=== PATIENT | female | born 1960 | race Caucasian/White ===

== ENCOUNTER 2016-07-21 08:00 | Outpatient (CLI) | payer MEDICARE, MEDICAID | END 2016-07-21 23:59 | DX: L89.509 Pressure ulcer of unspecified ankle, unspecified stage (principal) ==

== ENCOUNTER 2016-08-26 14:58 | Outpatient (CLI) | payer MEDICARE, MEDICAID | END 2016-08-26 14:59 | disposition home or self-care (01) | DX: E11.9 Type 2 diabetes mellitus without complications (principal); E03.9 Hypothyroidism, unspecified ==

== ENCOUNTER 2017-01-03 17:55 | Emergency (ER) | payer MEDICARE, MEDICAID ==
[2017-01-03] MEDS ORDERED: CLINDAMYCIN 900 MG/50 ML 50 ML IV ONE ×2 (18:07→18:23)
--- NOTE | 2017-01-03 18:09 | ED Physician Documentation ---
PD HPI LOWER EXT INJURY - Stated complaint Stated Complaint: L LEG WOUND - Chief complaint Chief Complaint: Ext Problem - History obtained from History obtained from: Patient - History of Present Illness PD HPI LOW EXT INJURY LOCATION: Other (56-year-old woman with orally controlled diabetes and history of recurrent leg infections with history of MRSA had a small blister on the anterior part of her left coates about a week ago, she put a Band-Aid on but it continued to get worse now she is spreading redness over the area. No measured fevers but she has had some chills.) Review of Systems Ten Systems: 10 systems reviewed and negative Constitutional: reports: Chills. denies: Fever Nose: denies: Rhinorrhea / runny nose, Congestion Cardiac: denies: Chest pain / pressure, Palpitations Respiratory: denies: Dyspnea, Cough PD PAST MEDICAL HISTORY - Past Medical History Cardiovascular: Hypertension Respiratory: Asthma Neuro: Peripheral neuropathy Endocrine/Autoimmune: Type 2 diabetes, HyPOthyroidism GI: None : Incontinence, Nocturia, Frequency HEENT: None Psych: Anxiety, Post traumatic stress disorder Musculoskeletal: Osteoarthritis, Fibromyalgia, Chronic back pain Derm: Other drug resistant infections, Herpes zoster - Past Surgical History Past Surgical History: Yes - Present Medications Home Medications: Ambulatory Orders Medication Instructions Recorded Confirmed Carisoprodol 350 mg PO QPM 10/07/13 08/04/16 Cholecalciferol (Vitamin D3) 5,000 units PO DAILY 10/07/13 08/04/16 [Vitamin D] Levothyroxine [Synthroid] 125 mcg PO DAILY 10/07/13 08/04/16 Liothyronine Sodium [Cytomel] 25 mcg PO DAILY 10/07/13 08/04/16 Metformin HCl 500 mg PO BID 10/07/13 08/04/16 Lisinopril 20 mg PO DAILY 02/12/15 08/04/16 Methadone HCl 10 mg PO TID 02/12/15 08/04/16 Sertraline HCl [Zoloft] 100 mg PO DAILY 02/12/15 08/04/16 Carisoprodol 350 mg PO DAILY 03/30/15 08/04/16 Meloxicam 15 mg PO DAILY 08/04/16 08/04/16 Tetracycline HCl 500 mg PO BID 08/04/16 08/04/16 Clindamycin HCl 300 mg PO TID 08/18/16 08/18/16 Sulfamethox/Trimeth 800/160 1 tab PO BID 08/18/16 08/18/16 [Bactrim Ds] Clindamycin [Cleocin] 300 mg PO Q6H 10 Days 01/03/17 - Allergies Allergies/Adverse Reactions: Allergies Allergy/AdvReac Type Severity Reaction Status Date / Time Penicillins Allergy Rash Verified 03/30/15 19:55 Sulfa (Sulfonamide Allergy Rash Verified 03/30/15 19:55 Antibiotics) - Social History Does the pt smoke?: Yes Smoking Status: Current every day smoker Does the pt drink ETOH?: No Does the pt have substance abuse?: No - Family History Family history: reports: Non contributory - Immunizations Immunizations are current?: Yes PD ED PE NORMAL - Vitals Vital signs reviewed: Yes - General General: Alert and oriented X 3, No acute distress - HEENT HEENT: PERRL, EOMI - Neck Neck: Supple, no meningeal sign, No bony TTP - Cardiac Cardiac: RRR, No murmur - Respiratory Respiratory: No respiratory distress, Clear bilaterally - Abdomen Abdomen: Soft, Non tender - Back Back: No CVA TTP, No spinal TTP - Extremities Extremities: Other (She has cellulitis of the left leg from about 8 cm below the knee down to the ankle with some denuded areas with serous drainage on the anterior right coates but no purulent drainage or obvious abscess.) - Neuro Neuro: Alert and oriented X 3, Normal speech - Psych Psych: Normal mood, Normal affect Results - Vitals Vitals: Vital Signs - 24 hr 01/03/17 17:59 Temperature 37 C Heart Rate 88 Respiratory 20 Rate Blood Pressure 182/79 H O2 Saturation 97 Oxygen O2 Source Room air - Labs Labs: Laboratory Tests 01/03/17 01/03/17 18:36 18:36 WBC 9.7 RBC 4.17 L Hgb 11.7 L Hct 35.8 L MCV 86.0 MCH 28.1 MCHC 32.7 RDW 14.7 Plt Count 262 MPV 7.6 L Neut # 6.5 Lymph # 2.3 [place] # 0.7 Eos # 0.3 Baso # 0.0 Absolute Nucleated RBC 0.00 Nucleated RBCs 0.0 Sodium 141 Potassium 4.1 Chloride 104 Carbon Dioxide 30 Anion Gap 7.0 BUN 22 H Creatinine 0.6 Estimated GFR (MDRD) 103 Glucose 135 H Calcium 8.7 PD MEDICAL DECISION MAKING - ED course ED course: 56-year-old woman with recurrent cellulitis, history of MRSA. She has an area of cellulitis with some systemic symptoms but her blood work is reassuring. She was administered IV clindamycin here and a prescription for same. She feels comfortable with discharge which seems reasonable given lack of fever or white count here. Departure - Departure Disposition: 01 Home, Self Care Clinical Impression: Cellulitis Condition: Good Record reviewed to determine appropriate education?: Yes Instructions: ED Infec Skin Cellulitis Prescriptions: Clindamycin [Cleocin] 300 mg PO Q6H 10 Days Comments: Return if redness spreads if you develop fever, or if you are not better in a few days. Follow-up with your doctor as soon as possible, discuss referral to wound clinic. We are performing a wound culture, the results should be done in 48-72 hours. If antibiotic change is necessary we will call you. Return if worse in the meantime, especially if he develop increased pain, fevers, cannot keep down the medication. Otherwise follow-up with your physician in approximately 2-3 days. Your blood pressure was elevated today on check into the emergency department. This does not mean that you have hypertension, it is a common phenomenon to come to the emergency department and have elevated blood pressure. I recommend that she see her primary care physician within the week to have it rechecked when you are feeling better.
[2017-01-03] MEDS ORDERED: SODIUM CHLORIDE FLUSH 0.9% 10 ML SYRINGE IVP ONE (18:23)
[2017-01-03 18:42] LABS: BASOPHILS % (AUTO) 0.3 %; EOSINOPHILS # (AUTO) 0.3 10^3/uL (0.0-0.7); EOSINOPHILS % (AUTO) 2.6 %; HCT - HEMATOCRIT 35.8 % (37.0-47.0); HGB - HEMOGLOBIN 11.7 g/dL (12.0-16.0); LYMPHOCYTES # (AUTO) 2.3 10^3/uL (1.5-3.5); LYMPHOCYTES % (AUTO) 23.9 %; MEAN CORPUSCULAR HEMOGLOBIN 28.1 pg (27.0-31.0); MEAN CORPUSCULAR HGB CONC 32.7 g/dL (32.0-36.0); MEAN PLATELET VOLUME 7.6 fL (7.9-10.8); MONOCYTES # (AUTO) 0.7 10^3/uL (0.0-1.0); MONOCYTES % (AUTO) 6.7 %; NEUTROPHILS # (AUTO) 6.5 10^3/uL (1.5-6.6); NEUTROPHILS % (AUTO) 66.5 %; RED BLOOD COUNT 4.17 10^6/uL (4.20-5.40); RED CELL DISTRIBUTION WIDTH 14.7 % (12.0-15.0); UNCORRECTED WHITE BLOOD COUNT 9.7 x10^3/uL; WHITE BLOOD COUNT 9.7 x10^3/uL (4.8-10.8)
[2017-01-03 18:50] LABS: CALCIUM 8.7 mg/dL (8.5-10.3); CREATININE 0.6 mg/dL (0.4-1.0); POTASSIUM 4.1 mmol/L (3.5-5.0)
[2017-01-03 19:38] VITALS: BP 158/76
== END 2017-01-03 20:03 | disposition home or self-care (01) ==
LOC: ED 17:55
DX: L03.116 Cellulitis of left lower limb (principal); E11.42 Type 2 diabetes mellitus with diabetic polyneuropathy; Z79.84 Long term (current) use of oral hypoglycemic drugs; I10 Essential (primary) hypertension; J45.909 Unspecified asthma, uncomplicated; E03.9 Hypothyroidism, unspecified; M79.7 Fibromyalgia; M19.90 Unspecified osteoarthritis, unspecified site; Z86.14 Personal history of Methicillin resistant Staphylococcus aureus infection; F17.200 Nicotine dependence, unspecified, uncomplicated
CPT/HCPCS: 36415; 80048; 85025; 87070; 87077; 87205; 96374; 99283; 99284

== ENCOUNTER 2017-01-06 12:13 | Outpatient (CLI) | payer MEDICARE, MEDICAID ==
--- NOTE | 2017-01-06 15:55 | XRAY Report ---
TWO VIEW CHEST: 01/06/2017 CLINICAL INDICATION: Edema. FINDINGS: Frontal and lateral views of the chest demonstrate a normal cardiac silhouette. There is p ulmonary vascular congestion present, compatible with mild congestive failure. No effusion or pneumot horax is present. IMPRESSION: PULMONARY VASCULAR CONGESTION, COMPATIBLE WITH MILD CONGESTIVE FAILURE. JOB #: [id number] EXT JOB #:[id number]
== END 2017-01-06 12:14 | disposition home or self-care (01) ==
LOC: DI.S 12:13
PROVIDERS: ATTEND Nurse Practitioner Family
DX: I50.9 Heart failure, unspecified (principal)
CPT/HCPCS: 71020

== ENCOUNTER 2017-01-15 16:59 | Outpatient (CLI) | payer MEDICARE, MEDICAID | END 2017-01-15 17:00 | disposition home or self-care (01) | LOC: LAB 16:59 | PROVIDERS: ATTEND Nurse Practitioner Family | DX: I10 Essential (primary) hypertension (principal); R60.9 Edema, unspecified; Z78.9 Other specified health status ==

== ENCOUNTER 2017-01-16 13:32 | Outpatient (CLI) | payer MEDICARE, MEDICAID | END 2017-01-16 13:33 | disposition home or self-care (01) | LOC: DI 13:32 | PROVIDERS: ATTEND Nurse Practitioner Family | DX: R60.9 Edema, unspecified (principal); I51.7 Cardiomegaly | CPT/HCPCS: 93306 ==

== ENCOUNTER 2017-01-28 14:52 | Outpatient (CLI) | payer MEDICARE, MEDICAID ==
[2017-01-28 15:48] LABS: BASOPHILS % (AUTO) 0.4 %; EOSINOPHILS # (AUTO) 0.2 10^3/uL (0.0-0.7); EOSINOPHILS % (AUTO) 2.1 %; HGB - HEMOGLOBIN 12.7 g/dL (12.0-16.0); LYMPHOCYTES # (AUTO) 2.4 10^3/uL (1.5-3.5); LYMPHOCYTES % (AUTO) 23.3 %; MEAN CORPUSCULAR HEMOGLOBIN 27.8 pg (27.0-31.0); MEAN CORPUSCULAR HGB CONC 32.6 g/dL (32.0-36.0); MEAN CORPUSCULAR VOLUME 85.3 fL (81.0-99.0); MONOCYTES # (AUTO) 0.7 10^3/uL (0.0-1.0); MONOCYTES % (AUTO) 6.6 %; NEUTROPHILS % (AUTO) 67.6 %; NUCLEATED RED BLOOD CELLS AUTO 0.1 /100WBC; RED BLOOD COUNT 4.57 10^6/uL (4.20-5.40); RED CELL DISTRIBUTION WIDTH 14.5 % (12.0-15.0); UNCORRECTED WHITE BLOOD COUNT 10.4 x10^3/uL; WHITE BLOOD COUNT 10.4 x10^3/uL (4.8-10.8)
[2017-01-28 16:04] LABS: ALBUMIN/GLOBULIN RATIO 1.3 (1.0-2.2); BILIRUBIN,TOTAL 0.4 mg/dL (0.2-1.0); CALCIUM 9.4 mg/dL (8.5-10.3); CREATININE 0.6 mg/dL (0.4-1.0); POTASSIUM 4.1 mmol/L (3.5-5.0); TOTAL PROTEIN 7.8 g/dL (6.7-8.2)
== END 2017-01-28 14:53 | disposition home or self-care (01) ==
LOC: LAB 14:52
PROVIDERS: ATTEND Nurse Practitioner Family
DX: I50.9 Heart failure, unspecified (principal); I10 Essential (primary) hypertension; R60.9 Edema, unspecified; Z78.9 Other specified health status
CPT/HCPCS: 36415; 80053; 83880; 85025; 86803

== ENCOUNTER 2017-02-04 15:06 | Outpatient (CLI) | payer MEDICARE, MEDICAID ==
[2017-02-07 00:02] LABS: HEPATITIS C VIRAL RNA GENOTYPE NOT DETECTED
== END 2017-02-04 15:07 | disposition home or self-care (01) ==
LOC: LAB 15:06
PROVIDERS: ATTEND Nurse Practitioner Family
DX: B19.20 Unspecified viral hepatitis C without hepatic coma (principal)
CPT/HCPCS: 36415; 82105; 87522; 87902

== ENCOUNTER 2017-02-11 12:46 | Outpatient (CLI) | payer MEDICARE, MEDICAID ==
--- NOTE | 2017-02-11 14:19 | Ultrasound Report ---
LIVER ULTRASOUND: 02/11/2017 CLINICAL INDICATION: Hepatitis C. TECHNIQUE: Real-time scanning was performed with high school admissions representative static images obtained. FINDINGS: The liver is markedly enlarged, measuring 25.8 cm. Hepatic echogenicity is diffusely incr eased. No intrahepatic biliary dilatation or focal mass is seen. The common bile duct measures 5 mm . The gallbladder demonstrates cholelithiasis. No wall thickening or pericholecystic fluid is prese nt. The right kidney measures 12.1 cm, and demonstrates no hydronephrosis. No free fluid is present . IMPRESSION: MARKEDLY ENLARGED, ECHOGENIC LIVER, WITHOUT EVIDENCE OF FOCAL MASS. JOB #: [id number] EXT JOB #:[id number]
== END 2017-02-11 12:47 | disposition home or self-care (01) ==
LOC: DI 12:46
PROVIDERS: ATTEND Nurse Practitioner Family
DX: B19.20 Unspecified viral hepatitis C without hepatic coma (principal); R16.0 Hepatomegaly, not elsewhere classified
CPT/HCPCS: 76705

== ENCOUNTER 2017-04-06 13:34 | Outpatient (CLI) | payer MEDICARE, MEDICAID | END 2017-04-06 13:35 | disposition home or self-care (01) | LOC: RT.S 13:34 | PROVIDERS: ATTEND Nurse Practitioner Family | DX: G89.29 Other chronic pain (principal) | CPT/HCPCS: 93005 ==

== ENCOUNTER 2017-05-28 16:37 | Outpatient (CLI) | payer MEDICARE, MEDICAID | END 2017-05-28 16:38 | disposition home or self-care (01) | LOC: LAB.R 16:37 | PROVIDERS: ATTEND Nurse Practitioner Family | DX: I87.2 Venous insufficiency (chronic) (peripheral) (principal) | CPT/HCPCS: 81599; 87070; 87077; 87184; 87186; 87205 ==

== ENCOUNTER → 2017-06-02 | Outpatient (CLI) | payer MEDICARE, MEDICAID | LOC: LAB.R 08:00 | PROVIDERS: ATTEND Nurse Practitioner Family | DX: L98.499 Non-pressure chronic ulcer of skin of other sites with unspecified severity (principal) | CPT/HCPCS: 81599 ==

== ENCOUNTER 2017-09-21 15:47 | Outpatient (CLI) | payer MEDICARE, MEDICAID ==
[2017-09-21 17:47] LABS: BASOPHILS % (AUTO) 0.3 %; EOSINOPHILS # (AUTO) 0.2 10^3/uL (0.0-0.7); EOSINOPHILS % (AUTO) 2.3 %; HGB - HEMOGLOBIN 12.1 g/dL (12.0-16.0); LYMPHOCYTES # (AUTO) 2.4 10^3/uL (1.5-3.5); LYMPHOCYTES % (AUTO) 23.3 %; MEAN CORPUSCULAR HEMOGLOBIN 26.4 pg (27.0-31.0); MEAN CORPUSCULAR VOLUME 82.4 fL (81.0-99.0); MEAN PLATELET VOLUME 8.5 fL (7.9-10.8); MONOCYTES # (AUTO) 0.6 10^3/uL (0.0-1.0); NEUTROPHILS % (AUTO) 68.1 %; PLT - PLATELET COUNT 336 10^3/uL (130-450); RED BLOOD COUNT 4.59 10^6/uL (4.20-5.40); RED CELL DISTRIBUTION WIDTH 15.5 % (12.0-15.0); WHITE BLOOD COUNT 10.3 x10^3/uL (4.8-10.8)
[2017-09-21 18:03] LABS: ALBUMIN 4.2 g/dL (3.2-5.5); ALBUMIN/GLOBULIN RATIO 1.2 (1.0-2.2); BILIRUBIN,TOTAL 0.6 mg/dL (0.2-1.0); CALCIUM 9.4 mg/dL (8.5-10.3); CREATININE 0.7 mg/dL (0.4-1.0); CRP - C-REACTIVE PROTEIN 1.1 mg/dL (0-1.0); TOTAL PROTEIN 7.6 g/dL (6.7-8.2)
[2017-09-21 19:45] LABS: HB2 TOTAL 13.4 g/dL; HEMOGLOBIN A1C 0.55 g/dL; HEMOGLOBIN A1C % 5.9 % (4.6-6.2)
== END 2017-09-21 15:48 | disposition home or self-care (01) ==
LOC: LAB.F 15:47
PROVIDERS: ATTEND Nurse Practitioner Family
DX: B19.20 Unspecified viral hepatitis C without hepatic coma (principal); E11.9 Type 2 diabetes mellitus without complications; E66.01 Morbid (severe) obesity due to excess calories; E03.9 Hypothyroidism, unspecified; L03.031 Cellulitis of right toe; L03.90 Cellulitis, unspecified
CPT/HCPCS: 36415; 80053; 82043; 83036; 84443; 85025; 85651; 86140

== ENCOUNTER 2018-06-25 02:11 | Outpatient (CLI) | payer MEDICARE, MEDICAID | END 2018-06-25 02:12 | disposition EMS.NT | LOC: EMS 02:11 | PROVIDERS: ATTEND Surgery | DX: R00.0 Tachycardia, unspecified (principal) ==

== ENCOUNTER 2018-09-20 08:00 | Outpatient (CLI) | payer MEDICAID, MEDICARE | END 2018-09-20 23:59 | disposition home or self-care (01) | LOC: LAB.R 08:00 | PROVIDERS: ATTEND Registered Nurse | DX: R06.2 Wheezing (principal) | CPT/HCPCS: 87070; 87205 ==

== ENCOUNTER 2019-07-12 12:46 | Outpatient (CLI) | payer MEDICARE, MEDICAID ==
[2019-07-12 17:41] LABS: ALBUMIN 4.1 g/dL (3.2-5.5); ALBUMIN/GLOBULIN RATIO 1.2 (1.0-2.2); ALKALINE PHOSPHATASE 78 IU/L (42-121); ALT ALANINE AMINOTRANSFERASE 23 IU/L (10-60); AST ASPARTATE AMINOTRANSFERASE 20 IU/L (10-42); BILIRUBIN,TOTAL < 0.2 mg/dL (0.2-1.0); BUN - BLOOD UREA NITROGEN 28 mg/dL (6-20); CALCIUM 9.1 mg/dL (8.5-10.3); CARBON DIOXIDE - CO2 28 mmol/L (21-32); CHLORIDE 101 mmol/L (101-111); CHOL/HDL RATIO 4.7 (<4.4); CHOLESTEROL 194 mg/dL; CREATININE 0.7 mg/dL (0.4-1.0); GFR - MDRD 85 (>89); GLUCOSE 117 mg/dL (70-100); HDL CHOLESTEROL 41 mg/dL; LDL CHOLESTEROL,CALCULATED 112 mg/dL; LDL/HDL RATIO 2.7 (<4.4); SODIUM 137 mmol/L (135-145); TOTAL PROTEIN 7.5 g/dL (6.7-8.2); VLDL CHOLESTEROL 41 mg/dL
== END 2019-07-12 12:47 | disposition home or self-care (01) ==
LOC: LAB.S 12:46
PROVIDERS: ATTEND Registered Nurse
DX: E03.9 Hypothyroidism, unspecified (principal); I10 Essential (primary) hypertension; E11.59 Type 2 diabetes mellitus with other circulatory complications
CPT/HCPCS: 36415; 80053; 80061; 83036; 83721; 84443; 85025

== ENCOUNTER 2020-03-30 11:49 | Outpatient (CLI) | payer MEDICARE, MEDICAID | END 2020-03-30 11:50 | disposition critical access hospital (66) | LOC: EMS 11:49 | PROVIDERS: ATTEND Surgery | DX: L08.89 Other specified local infections of the skin and subcutaneous tissue (principal) | CPT/HCPCS: A0425; A0429 ==

== ENCOUNTER 2020-03-30 12:24 | Emergency (ER) | payer MEDICARE, MEDICAID ==
--- NOTE | 2020-03-30 12:29 | ED Physician Documentation ---
PD HPI WOUND RECHECK - Stated complaint Stated Complaint: LEG SORES - Histroy obtained from History obtained from: Patient - Additional information Additional information: 59-year-old woman with diabetes on metformin, no insulin presents with 2 months worth of wound issues on the legs and sacrum, the worst being the left lower extremity. In the past she has had poorly healing wounds and has been in wound care, but it sounds like she has been doing okay for the last couple of years until 2 months ago and has the above-stated wounds. 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 PD PAST MEDICAL HISTORY - Past Medical History Cardiovascular: Hypertension, Peripheral Vascular Disease Respiratory: Asthma Neuro: Peripheral neuropathy Endocrine/Autoimmune: Type 2 diabetes, HyPOthyroidism GI: None : Incontinence, Nocturia, Frequency HEENT: None Psych: Anxiety, Post traumatic stress disorder Musculoskeletal: Osteoarthritis, Fibromyalgia, Chronic back pain Derm: Other drug resistant infections, Herpes zoster - Past Surgical History Past Surgical History: Yes - Present Medications Home Medications: Ambulatory Orders Medication Instructions Recorded Confirmed Cholecalciferol (Vitamin D3) 5,000 units PO DAILY 10/07/13 03/30/20 [Vitamin D] Levothyroxine [Synthroid] 125 mcg PO DAILY 10/07/13 03/30/20 Liothyronine Sodium [Cytomel] 25 mcg PO DAILY 10/07/13 03/30/20 Lisinopril 20 mg PO DAILY 02/12/15 03/30/20 Methadone HCl 20 mg PO DAILY 02/12/15 03/30/20 Meloxicam 15 mg PO DAILY 08/04/16 03/30/20 oxyCODONE [Roxicodone] 5 mg PO TID PRN 06/24/17 03/30/20 hydrOXYzine HCL [Hydroxyzine HCl] 1 tab PO DAILY PRN 04/05/18 03/30/20 tiZANidine [Zanaflex] 1 tab PO QPM PRN 04/05/18 03/30/20 Furosemide [Lasix] 40 mg PO DAILY 09/09/18 03/30/20 Potassium Chloride [Klor-Con 10] 10 meq PO DAILY 09/09/18 03/30/20 Sertraline HCl 50 mg PO DAILY 09/09/18 03/30/20 Albuterol Sulfate [Proair Hfa 1 - 2 puffs PO Q6H PRN 03/06/19 03/30/20 Inhaler] Triamcinolone 0.1% Cream [Kenalog 1 applic TD BID PRN 03/06/19 03/30/20 0.1% Cream] Amox/Clav 875/125 [Augmentin] 1 each PO Q12H #20 tablet 03/30/20 Metformin HCl [Metformin ER 500 mg PO BID 03/30/20 03/30/20 Gastric] Nystatin [Nystop] 1 applic TOP BID #3 bottle 03/30/20 - Allergies Allergies/Adverse Reactions: Allergies Allergy/AdvReac Type Severity Reaction Status Date / Time Penicillins Allergy Rash Verified 03/30/20 12:28 Sulfa (Sulfonamide Allergy Rash Verified 03/30/20 12:28 Antibiotics) - Social History Does the pt smoke?: Yes Smoking Status: Current every day smoker Does the pt drink ETOH?: No Does the pt have substance abuse?: No - Immunizations Immunizations are current?: Yes PD ED PE NORMAL - Vitals Vital signs reviewed: Yes - General General: Alert and oriented X 3, No acute distress - HEENT HEENT: PERRL, EOMI - Neck Neck: Supple, no meningeal sign, No bony TTP - Respiratory Respiratory: No respiratory distress - Abdomen Abdomen: Non tender - Back Back: No CVA TTP, No spinal TTP - Derm Derm: Other (She has what looks like chronic cellulitis with pedal edema to both legs, some areas of shallow skin breakdown, the left leg is worse than the right. There is also more of a yeasty rash to the upper posterior thighs.) - Extremities Extremities: No edema, No calf tenderness / cord - Neuro Neuro: Alert and oriented X 3, Normal speech Results - Vitals Vitals: Vital Signs - 24 hr 03/30/20 03/30/20 03/30/20 12:28 13:22 14:15 Temperature 36.6 C 37 C Heart Rate 83 94 95 Respiratory 28 H 28 H 12 Rate Blood Pressure 196/68 H 154/42 H 169/63 H O2 Saturation 100 98 99 03/30/20 15:23 Temperature 37 C Heart Rate 93 Respiratory 24 Rate Blood Pressure 160/57 H O2 Saturation 98 Oxygen O2 Source Room air - Labs Labs: Laboratory Tests 03/30/20 03/30/20 12:49 12:49 WBC 9.3 RBC 3.96 L Hgb 10.7 L Hct 35.1 L MCV 88.6 MCH 27.0 MCHC 30.5 L RDW 14.6 Plt Count 338 MPV 9.3 Neut # (Auto) 6.0 Lymph # (Auto) 2.2 [place] # (Auto) 0.7 Eos # (Auto) 0.3 Baso # (Auto) 0.0 Absolute Nucleated RBC 0.00 Nucleated RBC % 0.0 Sodium 139 Potassium 4.4 Chloride 100 L Carbon Dioxide 29 Anion Gap 10.0 BUN 26 H Creatinine 0.8 Estimated GFR (MDRD) 73 L Glucose 117 H Calcium 9.3 PD MEDICAL DECISION MAKING - ED course ED course: 59-year-old woman with morbid obesity and some mobility issues and well controlled diabetes presents with recurrent leg cellulitis. She is not septic. Previous cultures reviewed and shows Augmentin/Unasyn dose here. She does have some social and self-care issues and I emailed her primary care physician. Departure - Departure Disposition: Home, Self Care Clinical Impression: Cellulitis Condition: Good Record reviewed to determine appropriate education?: Yes Instructions: ED Infec Skin Cellulitis Prescriptions: Amox/Clav 875/125 [Augmentin] 1 each PO Q12H #20 tablet Nystatin [Nystop] 1 applic TOP BID #3 bottle Comments: Call your doctor to arrange a follow-up appointment, make the next available appointment. In the interim, return anytime if worse or if new symptoms develop. Here is a copy of the email that I wrote to Jennifer Castelan: "I am seeing your patient Lynn Jaramillo in the emergency department today, she is a 59-year-old woman with well-controlled diabetes, chronic pain, and some mobility issues. She had had some problems with lower extremity wounds in the past and was in wound care, multiple rounds of antibiotics. That had been cleared up for a couple of years but now it has recurred. She has cellulitis on both legs. I dont see anything to culture. She also has yeast infection on the upper posterior thighs. She probably needs to be back in wound care if you could do a referral, home health might not be a bad option either if she qualifies. I am putting her on Augmentin and nystatin." Discharge Date/Time: 03/30/20 15:55
[2020-03-30 12:54] LABS: BASOPHILS % (AUTO) 0.3 %; EOSINOPHILS # (AUTO) 0.3 10^3/uL (0.0-0.7); EOSINOPHILS % (AUTO) 3.5 %; HGB - HEMOGLOBIN 10.7 g/dL (12.0-16.0); LYMPHOCYTES # (AUTO) 2.2 10^3/uL (1.5-3.5); LYMPHOCYTES % (AUTO) 23.7 %; MEAN CORPUSCULAR HGB CONC 30.5 g/dL (32.0-36.0); MEAN CORPUSCULAR VOLUME 88.6 fL (81.0-99.0); MEAN PLATELET VOLUME 9.3 fL (7.9-10.8); MONOCYTES # (AUTO) 0.7 10^3/uL (0.0-1.0); MONOCYTES % (AUTO) 7.3 %; NEUTROPHILS % (AUTO) 64.8 %; PLT - PLATELET COUNT 338 10^3/uL (130-450); RED BLOOD COUNT 3.96 10^6/uL (4.20-5.40); RED CELL DISTRIBUTION WIDTH 14.6 % (12.0-15.0); WHITE BLOOD COUNT 9.3 x10^3/uL (4.8-10.8)
[2020-03-30] MEDS ORDERED: AMPICILLIN/SULBACTAM 3 GM in SODIUM CHLORIDE 0.9% MINIBAG 100 ML IV STA (12:57)
[2020-03-30 13:09] LABS: CALCIUM 9.3 mg/dL (8.5-10.3); CREATININE 0.8 mg/dL (0.4-1.0)
[2020-03-30 15:24] VITALS: BP 160/57
== END 2020-03-30 15:55 | disposition home or self-care (01) ==
LOC: EDUNIT# → ED 12:24
DX: L03.116 Cellulitis of left lower limb (principal); L03.115 Cellulitis of right lower limb; B37.2 Candidiasis of skin and nail; E11.622 Type 2 diabetes mellitus with other skin ulcer; L97.921 Non-pressure chronic ulcer of unspecified part of left lower leg limited to breakdown of skin; E11.42 Type 2 diabetes mellitus with diabetic polyneuropathy; E11.51 Type 2 diabetes mellitus with diabetic peripheral angiopathy without gangrene; Z79.84 Long term (current) use of oral hypoglycemic drugs; I10 Essential (primary) hypertension; E66.01 Morbid (severe) obesity due to excess calories; Z68.44 Body mass index [BMI] 60.0-69.9, adult; F17.200 Nicotine dependence, unspecified, uncomplicated
CPT/HCPCS: 36415; 80048; 85025; 96365; 99281

== ENCOUNTER 2020-03-30 15:59 | Outpatient (CLI) | payer MEDICARE, MEDICAID | END 2020-03-30 16:00 | disposition home or self-care (01) | LOC: EMS 15:59 | PROVIDERS: ATTEND Surgery | DX: E66.01 Morbid (severe) obesity due to excess calories (principal) | CPT/HCPCS: A0425; A0428 ==

== ENCOUNTER 2020-05-01 07:00 | Outpatient (CLI) | payer MEDICARE, MEDICAID | END 2020-05-01 23:59 | disposition home or self-care (01) | LOC: LAB.R 07:00 | PROVIDERS: ATTEND Registered Nurse | DX: L03.116 Cellulitis of left lower limb (principal) | CPT/HCPCS: 87070; 87077; 87181; 87205 ==

== ENCOUNTER 2020-05-24 12:30 | Outpatient (CLI) | payer MEDICARE, MEDICAID | END 2020-05-24 23:59 | disposition home or self-care (01) | LOC: LAB.R 12:30 | PROVIDERS: ATTEND Registered Nurse | DX: L03.116 Cellulitis of left lower limb (principal) | CPT/HCPCS: 81599; 87070; 87077; 87181; 87205 ==

== ENCOUNTER 2020-05-29 18:18 | Outpatient (CLI) | payer MEDICARE, MEDICAID | END 2020-05-29 18:19 | disposition critical access hospital (66) | LOC: EMS 18:18 | PROVIDERS: ATTEND Surgery | DX: R60.0 Localized edema (principal) | CPT/HCPCS: A0425; A0429 ==

== ENCOUNTER 2020-05-29 18:45 | Emergency (ER) | payer MEDICARE, MEDICAID ==
--- NOTE | 2020-05-29 19:25 | ED Physician Documentation ---
History of Present Illness - Stated complaint Stated Complaint: LEG INFECTION - Chief complaint Chief Complaint: General - History obtained from History obtained from: Patient - History of Present Illness Timing: Chronic (see narrative below) Pain level now: 1 Improved by: nothing Worsened by: no apparent exacerbating factors - Additonal information Additional information: BIBA. patient has chronic BLE edema with recurrent/ongoing cellulitis for which she has been through several rounds of antibiotics and is currently on Cipro. patient says she had increasing swelling BLE, dyspnea since earlier today with mild SITE ENGINEER cough. patient says she had high BP this evening (180s SBP) and her temperature was 96. Patient says her home health aide contacted patient's UNITIZER who recommended patient come to ED for concern of possible sepsis. Review of Systems Constitutional: denies: Fever, Chills, Myalgias, Sweats Cardiac: reports: Pedal edema. denies: Chest pain / pressure, Palpitations Respiratory: reports: Dyspnea, Cough GI: reports: Reviewed and negative : denies: Dysuria, Frequency Musculoskeletal: reports: Extremity swelling Neurologic: denies: Generalized weakness PD PAST MEDICAL HISTORY - Past Medical History Cardiovascular: Hypertension, Peripheral Vascular Disease Respiratory: Asthma Neuro: Peripheral neuropathy Endocrine/Autoimmune: Type 2 diabetes, HyPOthyroidism GI: None : Incontinence, Nocturia, Frequency HEENT: None Psych: Anxiety, Post traumatic stress disorder Musculoskeletal: Osteoarthritis, Fibromyalgia, Chronic back pain Derm: Other drug resistant infections, Herpes zoster - Past Surgical History Past Surgical History: Yes - Present Medications Home Medications: Ambulatory Orders Medication Instructions Recorded Confirmed Levothyroxine [Synthroid] 125 mcg PO DAILY 10/07/13 05/29/20 Lisinopril 20 mg PO DAILY 02/12/15 05/29/20 Methadone HCl 10 mg PO BID PRN 02/12/15 05/29/20 Meloxicam 15 mg PO BID 08/04/16 05/29/20 Furosemide [Lasix] 40 mg PO DAILY 09/09/18 05/29/20 Potassium Chloride [Klor-Con 10] 10 meq PO DAILY 09/09/18 05/29/20 Sertraline HCl 50 mg PO HS 09/09/18 05/29/20 Albuterol Sulfate [Proair Hfa 1 - 2 puffs PO Q6H PRN 03/06/19 05/29/20 Inhaler] Metformin HCl [Metformin ER 500 mg PO BID 03/30/20 05/29/20 Gastric] Nystatin [Nystop] 1 applic TOP BID #3 bottle 03/30/20 05/29/20 Oxycodone HCl/Acetaminophen 1 each PO TID PRN 05/29/20 05/29/20 [Percocet 10-325 mg Tablet] Pregabalin [Lyrica] 50 mg PO DAILY 05/29/20 05/29/20 cephALEXin [Keflex] 500 mg PO Q6H 05/29/20 05/29/20 - Allergies Allergies/Adverse Reactions: Allergies Allergy/AdvReac Type Severity Reaction Status Date / Time Penicillins Allergy Rash Verified 05/29/20 19:07 Sulfa (Sulfonamide Allergy Rash Verified 05/29/20 19:07 Antibiotics) - Social History Does the pt smoke?: Yes Smoking Status: Current every day smoker Does the pt drink ETOH?: No Does the pt have substance abuse?: No - Immunizations Immunizations are current?: Yes PD ED PE NORMAL - Vitals Vital signs reviewed: Yes - General General: Alert and oriented X 3, No acute distress (AAOx3, conversant, pleasant, articulate, and in NAD), Other (mobidly obese) - Cardiac Cardiac: RRR, No murmur - Respiratory Respiratory: No respiratory distress, Clear bilaterally - Abdomen Abdomen: Soft, Non tender, Non distended PD ED PE EXPANDED - Extremities Extremities: Pedal edema bilateral Results - Vitals Vitals: Vital Signs - 24 hr 05/29/20 05/29/20 05/30/20 19:04 22:21 00:00 Temperature 36.0 C L 36.5 C Heart Rate 82 82 73 Respiratory 18 18 22 Rate Blood Pressure 121/51 L 158/78 H 148/64 H O2 Saturation 100 98 98 Oxygen O2 Source Room air - Labs Labs: Laboratory Tests 05/29/20 05/29/20 05/29/20 20:03 20:03 20:03 WBC 8.8 RBC 3.90 L Hgb 10.1 L Hct 34.3 L MCV 87.9 MCH 25.9 L MCHC 29.4 L RDW 16.4 H Plt Count 300 MPV 9.7 Neut # (Auto) 6.1 Lymph # (Auto) 1.9 [place] # (Auto) 0.5 Eos # (Auto) 0.4 Baso # (Auto) 0.0 Absolute Nucleated RBC 0.00 Nucleated RBC % 0.0 Sodium 136 Potassium 4.6 Chloride 98 L Carbon Dioxide 29 Anion Gap 9.0 BUN 28 H Creatinine 1.0 Estimated GFR (MDRD) 56 L Glucose 118 H Calcium 9.2 Total Bilirubin 0.7 AST 17 ALT 15 Alkaline Phosphatase 87 B-Natriuretic Peptide 60 Total Protein 8.1 Albumin 4.1 Globulin 4.0 Albumin/Globulin Ratio 1.0 Lipase 18 L - Rads (name of study) chest xray Radiology: Prelim report reviewed, See rad report PD MEDICAL DECISION MAKING - ED course Complexity details: reviewed results, re-evaluated patient, considered differential, d/w patient Departure - Departure Disposition: 01 Home, Self Care Clinical Impression: Dyspnea Condition: Good Instructions: ED Dyspnea Shortness of Breath Follow-Up: Jennifer Castelan ARNP [Primary Care Provider] - Comments: As we discussed, I recommend that you take double your lasix (furosemide) dose in the morning, then resume your normal dosing. The chest xray appears to have a small amount of fluid on the lungs and the extra dose of furosemide should help with this. We did not give you a dose tonight because, as we discussed, your signs and symptoms are not bad enough that you need the extra dose now, and you will likely be kept awake all night due to frequent urination if we do give it to you in the emergency department. Discharge Date/Time: 05/30/20 00:04
[2020-05-29 20:15] LABS: BASOPHILS % (AUTO) 0.3 %; EOSINOPHILS # (AUTO) 0.4 10^3/uL (0.0-0.7); EOSINOPHILS % (AUTO) 4.1 %; HGB - HEMOGLOBIN 10.1 g/dL (12.0-16.0); LYMPHOCYTES # (AUTO) 1.9 10^3/uL (1.5-3.5); LYMPHOCYTES % (AUTO) 21.1 %; MEAN CORPUSCULAR HEMOGLOBIN 25.9 pg (27.0-31.0); MEAN CORPUSCULAR HGB CONC 29.4 g/dL (32.0-36.0); MEAN CORPUSCULAR VOLUME 87.9 fL (81.0-99.0); MEAN PLATELET VOLUME 9.7 fL (7.9-10.8); MONOCYTES # (AUTO) 0.5 10^3/uL (0.0-1.0); MONOCYTES % (AUTO) 5.7 %; NEUTROPHILS # (AUTO) 6.1 10^3/uL (1.5-6.6); NEUTROPHILS % (AUTO) 68.6 %; PLT - PLATELET COUNT 300 10^3/uL (130-450); RED CELL DISTRIBUTION WIDTH 16.4 % (12.0-15.0); WHITE BLOOD COUNT 8.8 x10^3/uL (4.8-10.8)
[2020-05-29 20:29] LABS: ALBUMIN 4.1 g/dL (3.2-5.5); BILIRUBIN,TOTAL 0.7 mg/dL (0.2-1.0); CALCIUM 9.2 mg/dL (8.5-10.3); TOTAL PROTEIN 8.1 g/dL (6.7-8.2)
--- NOTE | 2020-05-29 20:48 | XRAY Report ---
PROCEDURE: Chest 1 View X-Ray INDICATIONS: dyspnea, cough TECHNIQUE: One view of the chest was acquired. COMPARISON: 01/06/2017 FINDINGS: Surgical changes and devices: None. Lungs and pleura: Diffuse interstitial prominence with central vascular congestion. No substantial p leural effusions or pneumothorax. No focal consolidations Mediastinum: Mediastinal contours appear stable. Heart size is prominent. Bones and chest wall: No suspicious bony lesions. Overlying soft tissues appear unremarkable. IMPRESSION: Findings compatible with mild pulmonary edema. Infectious/inflammatory process not excluded if clinic ally appropriate. No focal consolidation. Reviewed by: Hayden Hou MD on 05/29/2020 8:46 PM PST Approved by: Hayden Hou MD on 05/29/2020 8:46 PM PST Station ID: [id number]
[2020-05-30 00:02] VITALS: BP 148/64
== END 2020-05-30 00:04 | disposition home or self-care (01) ==
LOC: EDUNIT# → SUPCPDRO 18:45 → ED 18:45
DX: R06.00 Dyspnea, unspecified (principal); L03.115 Cellulitis of right lower limb; L03.116 Cellulitis of left lower limb; I10 Essential (primary) hypertension; E11.42 Type 2 diabetes mellitus with diabetic polyneuropathy; Z79.84 Long term (current) use of oral hypoglycemic drugs; F17.200 Nicotine dependence, unspecified, uncomplicated; E66.01 Morbid (severe) obesity due to excess calories
CPT/HCPCS: 36415; 80053; 83690; 83880; 85025; 99284

== ENCOUNTER 2020-05-30 00:01 | Outpatient (CLI) | payer MEDICARE, MEDICAID | END 2020-05-30 00:02 | disposition home or self-care (01) | LOC: EMS 00:01 | PROVIDERS: ATTEND Surgery | DX: L08.9 Local infection of the skin and subcutaneous tissue, unspecified (principal); E66.01 Morbid (severe) obesity due to excess calories | CPT/HCPCS: A0425; A0428 ==

== ENCOUNTER 2020-06-12 12:30 | Outpatient (CLI) | payer MEDICARE, MEDICAID | END 2020-06-12 23:59 | disposition home or self-care (01) | LOC: LAB.R 12:30 | PROVIDERS: ATTEND Registered Nurse | DX: L03.116 Cellulitis of left lower limb (principal) | CPT/HCPCS: 87070; 87181; 87205 ==

== ENCOUNTER 2020-06-19 12:34 | Outpatient (CLI) | payer MEDICARE, MEDICAID | END 2020-06-19 12:35 | disposition critical access hospital (66) | LOC: EMS 12:34 | PROVIDERS: ATTEND Emergency Medicine | DX: R53.1 Weakness (principal); R06.09 Other forms of dyspnea; R68.83 Chills (without fever) | CPT/HCPCS: A0425; A0429 ==

== ENCOUNTER 2020-06-19 12:59 | Emergency (ER) | payer MEDICARE, MEDICAID ==
--- NOTE | 2020-06-19 14:08 | ED Physician Documentation ---
PD HPI SKIN - Stated complaint Stated Complaint: WEAKNESS - Chief complaint Chief Complaint: Wound - History obtained from History obtained from: Patient - Additional information Additional information: Pt comes to the ED with chief complaint of "my infectious disease specialist told me I have sepsis, and I need to be transferred to [facility] for IV antibiotics." Pt states that she has had cellulitis in both her legs for 6 months, and that she has been on numerous antibiotics, both IV (linezolid, initially) and oral. She has undergone courses of Keflex, doxycycline, and most recently, Cipro. She finished her last course 2 days ago. Pt has had Home Health nursing visits to help with wound care, as she is extremely obese, and needs help caring for her legs. On further questioning, it turns out that she has not seen infectious disease, but her care has been overseen by a family practice nurse practitioner at the [facility], Jennifer Castelan. Pt has some chronic skin breakdown on her legs, which per notes, has been slowly improving, but pt states that since finishing the antibiotics, she has had more weeping, and worries that her swelling is increasing. She has not noticed spread of the erythema at this point in time. No fever or chills. No lightheadedness. No N/V. Pt denies feeling of general illness, though she does state she has been tired for several weeks. No other complaints at this time. According to the nursing staff at Ms. Castelan' office (Ms. Castelan was not available to discuss the pt's case), Ms. Castelan had a tele-visit with the pt and her nurse, and told the pt to come to the ED to get checked out. Review of Systems Ten Systems: 10 systems reviewed and negative Constitutional: reports: Reviewed and negative Eyes: reports: Reviewed and negative Ears: reports: Reviewed and negative Nose: reports: Reviewed and negative Throat: reports: Reviewed and negative Cardiac: reports: Reviewed and negative Respiratory: reports: Reviewed and negative GI: reports: Reviewed and negative : reports: Reviewed and negative Skin: reports: Other (erythema, legs) Musculoskeletal: reports: Extremity swelling Neurologic: reports: Reviewed and negative Psychiatric: reports: Reviewed and negative Endocrine: reports: Reviewed and negative Immunocompromised: reports: Reviewed and negative PD PAST MEDICAL HISTORY - Past Medical History Cardiovascular: Hypertension, Peripheral Vascular Disease Respiratory: Asthma Neuro: Peripheral neuropathy Endocrine/Autoimmune: Type 2 diabetes, HyPOthyroidism GI: None : Incontinence, Nocturia, Frequency HEENT: None Psych: Anxiety, Post traumatic stress disorder Musculoskeletal: Osteoarthritis, Fibromyalgia, Chronic back pain Derm: Other drug resistant infections, Herpes zoster - Past Surgical History Past Surgical History: Yes - Present Medications Home Medications: Ambulatory Orders Medication Instructions Recorded Confirmed Levothyroxine [Synthroid] 125 mcg PO DAILY 10/07/13 06/19/20 Lisinopril 20 mg PO DAILY 02/12/15 06/19/20 Methadone HCl 10 mg PO BID PRN 02/12/15 06/19/20 Meloxicam 15 mg PO BID 08/04/16 06/19/20 Furosemide [Lasix] 40 mg PO DAILY 09/09/18 06/19/20 Potassium Chloride [Klor-Con 10] 10 meq PO DAILY 09/09/18 06/19/20 Sertraline HCl 50 mg PO HS 09/09/18 06/19/20 Albuterol Sulfate [Proair Hfa 1 - 2 puffs PO Q6H PRN 03/06/19 06/19/20 Inhaler] Metformin HCl [Metformin ER 500 mg PO BID 03/30/20 06/19/20 Gastric] Nystatin [Nystop] 1 applic TOP BID #3 bottle 03/30/20 06/19/20 Oxycodone HCl/Acetaminophen 1 each PO TID PRN 05/29/20 06/19/20 [Percocet 10-325 mg Tablet] Pregabalin [Lyrica] 50 mg PO DAILY 05/29/20 06/19/20 Doxycycline Hyclate 100 mg PO BID #14 06/19/20 - Allergies Allergies/Adverse Reactions: Allergies Allergy/AdvReac Type Severity Reaction Status Date / Time Penicillins Allergy Rash Verified 05/29/20 19:07 Sulfa (Sulfonamide Allergy Rash Verified 05/29/20 19:07 Antibiotics) - Social History Does the pt smoke?: Yes Smoking Status: Current every day smoker Does the pt drink ETOH?: No Does the pt have substance abuse?: No - Immunizations Immunizations are current?: Yes - POLST Patient has POLST: No PD ED PE NORMAL - Vitals Vital signs reviewed: Yes - General General: Alert and oriented X 3, No acute distress, Other (Extremely obese body habitus. Well-appearing.) - HEENT HEENT: Atraumatic, PERRL, EOMI, Moist mucous membranes - Neck Neck: Supple, no meningeal sign - Cardiac Cardiac: RRR, No murmur, Strong equal pulses - Respiratory Respiratory: No respiratory distress, Clear bilaterally - Abdomen Abdomen: Normal bowel sounds, Soft, Non tender, Non distended - Derm Derm: Warm and dry, Other (LLE moderate, somewhat bronzy erythema mid-anterior tibial area and inferiorly, circumferential at ankle. Legs are very obese, but also 1+ pitting edema bilaterally. Skin breakdown lateral L calf. R lower leg mild chronic edema, moderate, bronzy erythema, chronic-appearing.) - Extremities Extremities: No deformity, Other (1+ pitting edema; extreme obesity. No distinct calf tenderness. Mild tenderness over lower legs in general.) - Neuro Neuro: Alert and oriented X 3, taffy candy maker 2-12 intact, Normal speech - Psych Psych: Normal mood, Normal affect Results - Vitals Vitals: Oxygen O2 Source Room air - Labs Labs: Microbiology 06/19/20 15:12 Blood Culture - Preliminary Blood - Right Arm NO GROWTH AFTER 1 DAY 06/19/20 14:32 Blood Culture - Preliminary Blood NO GROWTH AFTER 1 DAY Laboratory Tests 06/19/20 06/19/20 06/19/20 14:32 14:32 14:32 WBC 9.7 RBC 4.11 L Hgb 10.7 L Hct 35.0 L MCV 85.2 MCH 26.0 L MCHC 30.6 L RDW 16.3 H Plt Count 336 MPV 9.3 Neut # (Auto) 7.2 H Lymph # (Auto) 1.7 [place] # (Auto) 0.5 Eos # (Auto) 0.4 Baso # (Auto) 0.0 Absolute Nucleated RBC 0.00 Nucleated RBC % 0.0 Sodium 135 Potassium 4.3 Chloride 97 L Carbon Dioxide 28 Anion Gap 10.0 BUN 25 H Creatinine 0.8 Estimated GFR (MDRD) 73 L Glucose 115 H Lactic Acid 0.9 Calcium 9.2 Total Bilirubin 0.6 AST 13 ALT 14 Alkaline Phosphatase 85 Total Protein 8.3 H Albumin 4.1 Globulin 4.2 Albumin/Globulin Ratio 1.0 Lipase 19 L PD MEDICAL DECISION MAKING - ED course Complexity details: reviewed old records, reviewed results, re-evaluated patient, considered differential, d/w patient, d/w family ED course: The pt upon arrival immediately began complaining that she had wanted to go to [facility] [place], not [place], and granddaughter called, stating that pt's son was on the way to sign her out and drive the pt to [facility]. The pt's vital signs were not concerning for sepsis at this time, with no fever, tachycardia, or hypotension, and much of her lower leg findings appeared chronic. As such, I gave the pt the option to have a work-up initiated here, or to forego this if she wished to sign out. Ultimately, the pt decided to have labs drawn here, and this was done, demonstrating a normal white blood cell count and lactate. I reviewed her medical records during this time, and spoke with her PCP's nurse. The pt's son and daughter called the ED multiple times during the course of her stay, irate, verbally accosting staff, and demanding that we transfer the pt to [facility] [place]. I had already spoken by [place] (or equivalent) to pt's granddaughter, who called during my initial evaluation, and explained to her that the degree of work-up and intervention here would be ultimately up to the pt, who is a consenting adult, and that the disposition would be dependent upon the results of the work-up. The pt displayed no signs of sepsis or even acute infection. I discussed with her that if months of antibiotics have not been helpful, then something other than cellulitis ought to be considered. Due to her limited mobility and extreme obesity, she undoubtedly has venous insufficiency, which is almost certainly contributing to at least some of her symptoms. Pt is afebrile, hemodynamically stable, and without a white count or lactic acidosis. Her erythema has not spread. At this time, I have explained to the pt that not only is [facility] very full, but there is no indication for emergent infectious disease evaluation, and that this should be arranged by the pt's primary provider as an outpatient. Furthermore, there really is not even an indication for inpatient management of any kind at this time. Pt expresses understanding. She states that she would feel more comfortable going back on antibiotics until she can see her PCP and have ID follow-up arranged. I am willing to do this, though I have discussed with the pt that it may not make a difference clinically. Pt is given a dose of doxycycline here, and discharged on the same. We have discussed the usual indications for return. Departure - Departure Disposition: 01 Home, Self Care Clinical Impression: Dependent edema Cellulitis Qualifiers: Site of cellulitis: extremity Site of cellulitis of extremity: lower extremity Laterality: left Qualified Code(s): L03.116 - Cellulitis of left lower limb Condition: Serious Instructions: ED Infec Skin Cellulitis, ED PVD Prescriptions: Doxycycline Hyclate 100 mg PO BID #14 Comments: Your vital signs are normal today, including no elevated heart rate and no fever. Additionally, your blood pressure is not low. Furthermore, on testing, your white blood cell count is normal and the sepsis marker, lactic acid, is normal. All of these things put together indicate a lower likelihood of aggressive advancement of any infectious process. It is not clear why you continue to have the ongoing redness and swelling of your lower legs. As we discussed, there are a number of potential causes for this, and given that multiple courses of antibiotics have not really changed your symptoms much, it is important to consider other potential causes besides infection. At this point in time, you do not meet criteria for admission to the hospital or for transfer. You have requested transfer to [facility], but they do not have bed availability and have stated that they cannot accept you in transfer from our hospital. We have discussed having a dose of IV antibiotics here and going home on antibiotics, which has ultimately been the plan that was agreed upon. I have attempted to reach your primary provider, Jennifershannon Keith, but she has not returned my calls, as she is not in clinic today. However, I was able to speak with her nurse, Antoinette, in the clinic, and really the findings on your tests and vital signs, as well as the plan to give you a dose of antibiotics here and discharge you on the same. I have conveyed to her my recommendation that they move forward with referral to infectious disease to determine whether infection is really at the root of your symptoms or not. Ms. Keith is in the clinic tomorrow, and her nurse says they will reach out to you to coordinate further care. If you develop fevers or redness that is spreading up into your upper leg, you will need to be seen again. Discharge Date/Time: 06/19/20 21:47
[2020-06-19 14:40] LABS: BASOPHILS % (AUTO) 0.4 %; EOSINOPHILS # (AUTO) 0.4 10^3/uL (0.0-0.7); HGB - HEMOGLOBIN 10.7 g/dL (12.0-16.0); LYMPHOCYTES # (AUTO) 1.7 10^3/uL (1.5-3.5); MEAN CORPUSCULAR HGB CONC 30.6 g/dL (32.0-36.0); MEAN CORPUSCULAR VOLUME 85.2 fL (81.0-99.0); MEAN PLATELET VOLUME 9.3 fL (7.9-10.8); MONOCYTES # (AUTO) 0.5 10^3/uL (0.0-1.0); MONOCYTES % (AUTO) 4.8 %; NEUTROPHILS # (AUTO) 7.2 10^3/uL (1.5-6.6); NEUTROPHILS % (AUTO) 73.5 %; PLT - PLATELET COUNT 336 10^3/uL (130-450); RED BLOOD COUNT 4.11 10^6/uL (4.20-5.40); RED CELL DISTRIBUTION WIDTH 16.3 % (12.0-15.0); WHITE BLOOD COUNT 9.7 x10^3/uL (4.8-10.8)
[2020-06-19 15:15] LABS: ALBUMIN 4.1 g/dL (3.2-5.5); BILIRUBIN,TOTAL 0.6 mg/dL (0.2-1.0); CALCIUM 9.2 mg/dL (8.5-10.3); CREATININE 0.8 mg/dL (0.4-1.0); TOTAL PROTEIN 8.3 g/dL (6.7-8.2)
[2020-06-19] MEDS ORDERED: VANCOMYCIN INJ 1 GM in SODIUM CHLORIDE 0.9% 500 ML IV ONE (16:15)
[2020-06-19] MEDS ORDERED: DOXYCYCLINE INJ 200 MG in SODIUM CHLORIDE 0.9% 250 ML IV STA (16:46)
[2020-06-19 21:47] VITALS: BP 121/52
== END 2020-06-19 21:47 | disposition home or self-care (01) ==
LOC: EDUNIT# → ED 12:59
DX: L03.116 Cellulitis of left lower limb (principal); R60.0 Localized edema; I87.2 Venous insufficiency (chronic) (peripheral); E11.51 Type 2 diabetes mellitus with diabetic peripheral angiopathy without gangrene; E11.42 Type 2 diabetes mellitus with diabetic polyneuropathy; Z79.84 Long term (current) use of oral hypoglycemic drugs; I10 Essential (primary) hypertension; E66.01 Morbid (severe) obesity due to excess calories; Z68.44 Body mass index [BMI] 60.0-69.9, adult; F17.200 Nicotine dependence, unspecified, uncomplicated
CPT/HCPCS: 36415; 80053; 83605; 83690; 85025; 87040; 96365; 96366; 99284

== ENCOUNTER 2020-06-19 21:54 | Outpatient (CLI) | payer MEDICARE, MEDICAID | END 2020-06-19 21:55 | disposition home or self-care (01) | LOC: EMS 21:54 | DX: E66.01 Morbid (severe) obesity due to excess calories (principal); L03.119 Cellulitis of unspecified part of limb; Z74.01 Bed confinement status | CPT/HCPCS: A0425; A0428 ==

== ENCOUNTER 2020-07-10 11:30 | Outpatient (CLI) | payer MEDICARE, MEDICAID | END 2020-07-10 23:59 | disposition home or self-care (01) | LOC: LAB.R 11:30 | PROVIDERS: ATTEND Registered Nurse | DX: L03.115 Cellulitis of right lower limb (principal) | CPT/HCPCS: 87070; 87077; 87181; 87205 ==

== ENCOUNTER 2020-07-29 11:30 | Outpatient (CLI) | payer MEDICARE, MEDICAID | END 2020-07-29 23:59 | disposition home or self-care (01) | LOC: LAB.R 11:30 | PROVIDERS: ATTEND Registered Nurse | DX: L03.116 Cellulitis of left lower limb (principal) | CPT/HCPCS: 81599; 87070; 87077; 87181; 87186; 87205 ==

== ENCOUNTER 2020-08-07 10:00 | Outpatient (CLI) | payer MEDICARE, MEDICAID ==
[2020-08-07 11:26] LABS: MUDS CUTOFF CONCENTRATIONS CUTOFF CONC BELOW:
[2020-08-07 15:28] LABS: AMPHETAMINE SCREEN,URINE NEGATIVE (NEGATIVE); BARBITURATE SCREEN,UR NEGATIVE (NEGATIVE); BENZODIAZEPINES SCREEN, URINE NEGATIVE (NEGATIVE); COCAINE SCREEN URINE NEGATIVE (NEGATIVE); METHADONE SCREEN, URINE POSITIVE (NEGATIVE); METHAMPHETAMINES SCREEN, URINE NEGATIVE (NEGATIVE); OPIATE SCREEN, URINE NEGATIVE (NEGATIVE); OXYCODONE SCREEN, URINE POSITIVE (NEGATIVE); PROPOXYPHENE SCREEN, URINE NEGATIVE (NEGATIVE); THC CANNABINOID SCREEN, URINE NEGATIVE (NEGATIVE); TRICYCLIC ANTIDEPRESSANT,URINE NEGATIVE (NEGATIVE)
== END 2020-08-07 23:59 | disposition home or self-care (01) ==
LOC: LAB.R 10:00
PROVIDERS: ATTEND Acupuncturist
DX: Z79.891 Long term (current) use of opiate analgesic (principal)
CPT/HCPCS: 80306

== ENCOUNTER 2020-08-24 14:55 | Outpatient (CLI) | payer MEDICARE, MEDICAID | END 2020-08-24 14:56 | disposition short-term general hospital (02) | LOC: EMS 14:55 | DX: L08.9 Local infection of the skin and subcutaneous tissue, unspecified (principal) | CPT/HCPCS: A0425; A0429 ==

== ENCOUNTER 2020-09-06 11:15 | Outpatient (CLI) | payer MEDICARE, MEDICAID ==
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
== END 2020-09-06 11:16 | disposition home or self-care (01) ==
LOC: PC 11:15
PROVIDERS: ATTEND Nurse Practitioner Adult Health
DX: Z51.5 Encounter for palliative care (principal); L08.89 Other specified local infections of the skin and subcutaneous tissue; B95.5 Unspecified streptococcus as the cause of diseases classified elsewhere; I87.2 Venous insufficiency (chronic) (peripheral); I83.009 Varicose veins of unspecified lower extremity with ulcer of unspecified site; L97.909 Non-pressure chronic ulcer of unspecified part of unspecified lower leg with unspecified severity; E03.9 Hypothyroidism, unspecified; G89.4 Chronic pain syndrome; F32.9 Major depressive disorder, single episode, unspecified; F41.9 Anxiety disorder, unspecified; E66.01 Morbid (severe) obesity due to excess calories; E11.42 Type 2 diabetes mellitus with diabetic polyneuropathy; M19.90 Unspecified osteoarthritis, unspecified site; Z87.891 Personal history of nicotine dependence; Z79.84 Long term (current) use of oral hypoglycemic drugs
CPT/HCPCS: 99345

== ENCOUNTER 2020-09-09 16:13 | Outpatient (CLI) | payer MEDICARE, MEDICAID ==
[2020-09-09 16:19] LABS: BASOPHILS # (AUTO) 0.1 10^3/uL (0.0-0.1); BASOPHILS % (AUTO) 0.6 %; EOSINOPHILS # (AUTO) 0.5 10^3/uL (0.0-0.7); EOSINOPHILS % (AUTO) 6.8 %; HCT - HEMATOCRIT 33.8 % (37.0-47.0); HGB - HEMOGLOBIN 10.1 g/dL (12.0-16.0); LYMPHOCYTES # (AUTO) 1.8 10^3/uL (1.5-3.5); LYMPHOCYTES % (AUTO) 22.3 %; MEAN CORPUSCULAR HEMOGLOBIN 27.1 pg (27.0-31.0); MEAN CORPUSCULAR HGB CONC 29.9 g/dL (32.0-36.0); MEAN CORPUSCULAR VOLUME 90.6 fL (81.0-99.0); MEAN PLATELET VOLUME 10.1 fL (7.9-10.8); MONOCYTES # (AUTO) 0.6 10^3/uL (0.0-1.0); NEUTROPHILS # (AUTO) 5.1 10^3/uL (1.5-6.6); PLT - PLATELET COUNT 293 10^3/uL (130-450); RED BLOOD COUNT 3.73 10^6/uL (4.20-5.40); RED CELL DISTRIBUTION WIDTH 16.1 % (12.0-15.0)
[2020-09-09 16:29] LABS: BUN - BLOOD UREA NITROGEN 36 mg/dL (6-20); CALCIUM 9.3 mg/dL (8.5-10.3); CARBON DIOXIDE - CO2 33 mmol/L (21-32); CHLORIDE 99 mmol/L (101-111); CREATININE 0.9 mg/dL (0.4-1.0); GFR - MDRD 63 (>89); GLUCOSE 130 mg/dL (70-100); POTASSIUM 4.4 mmol/L (3.5-5.0); SODIUM 142 mmol/L (135-145)
[2020-09-09 17:56] LABS: ALBUMIN 4.1 g/dL (3.2-5.5); ALBUMIN/GLOBULIN RATIO 1.2 (1.0-2.2); ALKALINE PHOSPHATASE 69 IU/L (42-121); ALT ALANINE AMINOTRANSFERASE < 10 IU/L (10-60); AST ASPARTATE AMINOTRANSFERASE 20 IU/L (10-42); BILIRUBIN,TOTAL 0.6 mg/dL (0.2-1.0); TOTAL PROTEIN 7.5 g/dL (6.7-8.2)
== END 2020-09-09 16:14 | disposition home or self-care (01) ==
LOC: LAB.R 16:13
PROVIDERS: ATTEND Registered Nurse
DX: L03.116 Cellulitis of left lower limb (principal)
CPT/HCPCS: 80053; 85025

== ENCOUNTER 2020-09-16 15:13 | Outpatient (CLI) | payer MEDICARE, MEDICAID ==
[2020-09-16 15:28] LABS: BASOPHILS % (AUTO) 0.6 %; EOSINOPHILS # (AUTO) 0.5 10^3/uL (0.0-0.7); EOSINOPHILS % (AUTO) 6.7 %; HCT - HEMATOCRIT 33.4 % (37.0-47.0); LYMPHOCYTES # (AUTO) 1.9 10^3/uL (1.5-3.5); LYMPHOCYTES % (AUTO) 26.8 %; MEAN CORPUSCULAR HEMOGLOBIN 26.9 pg (27.0-31.0); MEAN CORPUSCULAR HGB CONC 29.9 g/dL (32.0-36.0); MEAN CORPUSCULAR VOLUME 89.8 fL (81.0-99.0); MEAN PLATELET VOLUME 10.6 fL (7.9-10.8); MONOCYTES # (AUTO) 0.5 10^3/uL (0.0-1.0); MONOCYTES % (AUTO) 7.2 %; NEUTROPHILS % (AUTO) 58.4 %; PLT - PLATELET COUNT 332 10^3/uL (130-450); RED BLOOD COUNT 3.72 10^6/uL (4.20-5.40); RED CELL DISTRIBUTION WIDTH 16.1 % (12.0-15.0); WHITE BLOOD COUNT 6.9 x10^3/uL (4.8-10.8)
[2020-09-16 15:40] LABS: ALBUMIN 3.9 g/dL (3.2-5.5); ALBUMIN/GLOBULIN RATIO 1.1 (1.0-2.2); ALKALINE PHOSPHATASE 66 IU/L (42-121); ALT ALANINE AMINOTRANSFERASE < 10 IU/L (10-60); AST ASPARTATE AMINOTRANSFERASE 23 IU/L (10-42); BILIRUBIN,TOTAL 0.3 mg/dL (0.2-1.0); BUN - BLOOD UREA NITROGEN 46 mg/dL (6-20); CALCIUM 9.2 mg/dL (8.5-10.3); CARBON DIOXIDE - CO2 31 mmol/L (21-32); CHLORIDE 97 mmol/L (101-111); CREATININE 1.3 mg/dL (0.4-1.0); GFR - MDRD 42 (>89); GLUCOSE 101 mg/dL (70-100); SODIUM 138 mmol/L (135-145); TOTAL PROTEIN 7.6 g/dL (6.7-8.2)
== END 2020-09-16 15:14 | disposition home or self-care (01) ==
LOC: LAB.R 15:13
PROVIDERS: ATTEND Registered Nurse
DX: L03.116 Cellulitis of left lower limb (principal)
CPT/HCPCS: 80053; 85025

== ENCOUNTER 2020-09-18 16:25 | Outpatient (CLI) | payer MEDICARE, MEDICAID | END 2020-09-18 16:26 | disposition EMS.NT | LOC: EMS 16:25 | DX: Z03.89 Encounter for observation for other suspected diseases and conditions ruled out (principal) ==

== ENCOUNTER 2020-09-23 13:29 | Outpatient (CLI) | payer MEDICARE, MEDICAID ==
[2020-09-23 13:38] LABS: BASOPHILS % (AUTO) 0.4 %; EOSINOPHILS # (AUTO) 0.4 10^3/uL (0.0-0.7); EOSINOPHILS % (AUTO) 4.5 %; HCT - HEMATOCRIT 33.6 % (37.0-47.0); HGB - HEMOGLOBIN 10.4 g/dL (12.0-16.0); LYMPHOCYTES # (AUTO) 1.9 10^3/uL (1.5-3.5); LYMPHOCYTES % (AUTO) 21.9 %; MEAN CORPUSCULAR HEMOGLOBIN 27.7 pg (27.0-31.0); MEAN CORPUSCULAR VOLUME 89.6 fL (81.0-99.0); MEAN PLATELET VOLUME 10.7 fL (7.9-10.8); MONOCYTES # (AUTO) 0.5 10^3/uL (0.0-1.0); MONOCYTES % (AUTO) 6.1 %; NEUTROPHILS # (AUTO) 5.7 10^3/uL (1.5-6.6); NEUTROPHILS % (AUTO) 66.7 %; PLT - PLATELET COUNT 285 10^3/uL (130-450); RED BLOOD COUNT 3.75 10^6/uL (4.20-5.40); WHITE BLOOD COUNT 8.5 x10^3/uL (4.8-10.8)
[2020-09-23 13:53] LABS: ALBUMIN 4.1 g/dL (3.2-5.5); ALBUMIN/GLOBULIN RATIO 1.1 (1.0-2.2); ALKALINE PHOSPHATASE 64 IU/L (42-121); ALT ALANINE AMINOTRANSFERASE < 10 IU/L (10-60); AST ASPARTATE AMINOTRANSFERASE 20 IU/L (10-42); BILIRUBIN,TOTAL 0.4 mg/dL (0.2-1.0); BUN - BLOOD UREA NITROGEN 36 mg/dL (6-20); CALCIUM 9.6 mg/dL (8.5-10.3); CARBON DIOXIDE - CO2 32 mmol/L (21-32); CHLORIDE 97 mmol/L (101-111); CREATININE 0.9 mg/dL (0.4-1.0); GFR - MDRD 63 (>89); GLUCOSE 107 mg/dL (70-100); POTASSIUM 4.6 mmol/L (3.5-5.0); SODIUM 138 mmol/L (135-145)
== END 2020-09-23 13:30 | disposition home or self-care (01) ==
LOC: LAB.R 13:29
PROVIDERS: ATTEND Registered Nurse
DX: L03.116 Cellulitis of left lower limb (principal)
CPT/HCPCS: 80053; 85025

== ENCOUNTER 2020-09-30 12:30 | Outpatient (CLI) | payer MEDICARE, MEDICAID ==
[2020-09-30 13:44] LABS: BASOPHILS % (AUTO) 0.4 %; EOSINOPHILS # (AUTO) 0.4 10^3/uL (0.0-0.7); EOSINOPHILS % (AUTO) 5.2 %; HCT - HEMATOCRIT 31.7 % (37.0-47.0); HGB - HEMOGLOBIN 9.6 g/dL (12.0-16.0); LYMPHOCYTES # (AUTO) 1.9 10^3/uL (1.5-3.5); LYMPHOCYTES % (AUTO) 25.2 %; MEAN CORPUSCULAR HEMOGLOBIN 27.3 pg (27.0-31.0); MEAN CORPUSCULAR HGB CONC 30.3 g/dL (32.0-36.0); MEAN CORPUSCULAR VOLUME 90.1 fL (81.0-99.0); MONOCYTES # (AUTO) 0.6 10^3/uL (0.0-1.0); MONOCYTES % (AUTO) 7.4 %; NEUTROPHILS # (AUTO) 4.7 10^3/uL (1.5-6.6); NEUTROPHILS % (AUTO) 61.4 %; PLT - PLATELET COUNT 277 10^3/uL (130-450); RED BLOOD COUNT 3.52 10^6/uL (4.20-5.40); RED CELL DISTRIBUTION WIDTH 16.2 % (12.0-15.0); WHITE BLOOD COUNT 7.7 x10^3/uL (4.8-10.8)
[2020-09-30 13:53] LABS: ALBUMIN 4.2 g/dL (3.2-5.5); ALBUMIN/GLOBULIN RATIO 1.2 (1.0-2.2); ALKALINE PHOSPHATASE 68 IU/L (42-121); ALT ALANINE AMINOTRANSFERASE < 10 IU/L (10-60); AST ASPARTATE AMINOTRANSFERASE 16 IU/L (10-42); BILIRUBIN,TOTAL 0.6 mg/dL (0.2-1.0); BUN - BLOOD UREA NITROGEN 48 mg/dL (6-20); CALCIUM 8.9 mg/dL (8.5-10.3); CARBON DIOXIDE - CO2 30 mmol/L (21-32); CHLORIDE 99 mmol/L (101-111); CREATININE 0.9 mg/dL (0.4-1.0); GFR - MDRD 63 (>89); GLUCOSE 102 mg/dL (70-100); POTASSIUM 4.9 mmol/L (3.5-5.0); SODIUM 138 mmol/L (135-145); TOTAL PROTEIN 7.8 g/dL (6.7-8.2)
== END 2020-09-30 23:59 | disposition home or self-care (01) ==
LOC: LAB.R 12:30
PROVIDERS: ATTEND Registered Nurse
DX: L03.116 Cellulitis of left lower limb (principal)
CPT/HCPCS: 80053; 85025

== ENCOUNTER 2020-10-08 10:48 | Outpatient (CLI) | payer MEDICARE, MEDICAID ==
[2020-10-08 15:51] LABS: BASOPHILS % (AUTO) 0.4 %; EOSINOPHILS # (AUTO) 0.4 10^3/uL (0.0-0.7); EOSINOPHILS % (AUTO) 4.4 %; HCT - HEMATOCRIT 33.3 % (37.0-47.0); HGB - HEMOGLOBIN 10.4 g/dL (12.0-16.0); LYMPHOCYTES # (AUTO) 1.8 10^3/uL (1.5-3.5); LYMPHOCYTES % (AUTO) 20.8 %; MEAN CORPUSCULAR HGB CONC 31.2 g/dL (32.0-36.0); MEAN CORPUSCULAR VOLUME 89.8 fL (81.0-99.0); MONOCYTES # (AUTO) 0.6 10^3/uL (0.0-1.0); MONOCYTES % (AUTO) 7.4 %; NEUTROPHILS # (AUTO) 5.6 10^3/uL (1.5-6.6); NEUTROPHILS % (AUTO) 66.8 %; PLT - PLATELET COUNT 272 10^3/uL (130-450); RED BLOOD COUNT 3.71 10^6/uL (4.20-5.40); RED CELL DISTRIBUTION WIDTH 16.6 % (12.0-15.0); WHITE BLOOD COUNT 8.4 x10^3/uL (4.8-10.8)
[2020-10-08 15:58] LABS: CALCIUM 9.4 mg/dL (8.5-10.3); CREATININE 0.8 mg/dL (0.4-1.0); POTASSIUM 4.8 mmol/L (3.5-5.0)
== END 2020-10-08 23:59 | disposition home or self-care (01) ==
LOC: LAB.R 10:48
PROVIDERS: ATTEND Internal Medicine Infectious Disease
DX: M86.20 Subacute osteomyelitis, unspecified site (principal)
CPT/HCPCS: 80048; 85025

== ENCOUNTER 2021-02-10 07:00 | Outpatient (CLI) | payer MEDICARE, MEDICAID | END 2021-02-10 23:59 | disposition home or self-care (01) | LOC: LAB 07:00 | PROVIDERS: ATTEND Registered Nurse | DX: L97.909 Non-pressure chronic ulcer of unspecified part of unspecified lower leg with unspecified severity (principal) | CPT/HCPCS: 87070; 87181; 87205 ==

== ENCOUNTER 2021-02-26 13:44 | Outpatient (CLI) | payer MEDICARE, MEDICAID ==
[2021-02-26 14:21] LABS: MUDS CUTOFF CONCENTRATIONS CUTOFF CONC BELOW:
--- NOTE | 2021-02-26 14:34 | XRAY Report ---
PROCEDURE: Foot 2 View RT INDICATIONS: CALLUS, TOE TECHNIQUE: 2 views of the foot were acquired. COMPARISON: None. FINDINGS: BONES: No acute, displaced fracture or dislocation. Os trigonum. Small calcaneal enthesophytes. Diffu se osteopenia. Mild osteophytosis about the midfoot. Osteophytosis is also seen about the hallux sesa moids. Joint space loss with osteophytosis about the first interphalangeal joint. SOFT TISSUES: No focal abnormality. IMPRESSION: 1.No acute osseous abnormality. Reviewed by: Joseph Powell MD on 02/26/2021 2:32 PM PDT Approved by: Joseph Powell MD on 02/26/2021 2:32 PM PDT Station ID: [id number]
[2021-02-27 13:24] LABS: AMPHETAMINE SCREEN,URINE NEGATIVE (NEGATIVE); BARBITURATE SCREEN,UR NEGATIVE (NEGATIVE); BENZODIAZEPINES SCREEN, URINE NEGATIVE (NEGATIVE); COCAINE SCREEN URINE NEGATIVE (NEGATIVE); METHADONE SCREEN, URINE POSITIVE (NEGATIVE); METHAMPHETAMINES SCREEN, URINE NEGATIVE (NEGATIVE); OPIATE SCREEN, URINE NEGATIVE (NEGATIVE); OXYCODONE SCREEN, URINE POSITIVE (NEGATIVE); PROPOXYPHENE SCREEN, URINE NEGATIVE (NEGATIVE); THC CANNABINOID SCREEN, URINE NEGATIVE (NEGATIVE); TRICYCLIC ANTIDEPRESSANT,URINE NEGATIVE (NEGATIVE)
== END 2021-02-26 13:45 | disposition home or self-care (01) ==
LOC: DI.S 13:44
PROVIDERS: ATTEND Registered Nurse
DX: L84 Corns and callosities (principal); Z79.891 Long term (current) use of opiate analgesic
CPT/HCPCS: 80306

== ENCOUNTER 2021-03-13 11:05 | Outpatient (CLI) | payer MEDICARE, MEDICAID ==
[2021-03-13 11:28] LABS: BASOPHILS % (AUTO) 0.4 %; EOSINOPHILS # (AUTO) 0.2 10^3/uL (0.0-0.7); EOSINOPHILS % (AUTO) 2.7 %; HCT - HEMATOCRIT 35.5 % (37.0-47.0); HGB - HEMOGLOBIN 11.2 g/dL (12.0-16.0); LYMPHOCYTES # (AUTO) 1.9 10^3/uL (1.5-3.5); MEAN CORPUSCULAR HEMOGLOBIN 27.9 pg (27.0-31.0); MEAN CORPUSCULAR HGB CONC 31.5 g/dL (32.0-36.0); MEAN CORPUSCULAR VOLUME 88.3 fL (81.0-99.0); MEAN PLATELET VOLUME 10.8 fL (7.9-10.8); MONOCYTES # (AUTO) 0.6 10^3/uL (0.0-1.0); MONOCYTES % (AUTO) 7.4 %; NEUTROPHILS # (AUTO) 5.5 10^3/uL (1.5-6.6); NEUTROPHILS % (AUTO) 66.4 %; PLT - PLATELET COUNT 271 10^3/uL (130-450); RED BLOOD COUNT 4.02 10^6/uL (4.20-5.40); RED CELL DISTRIBUTION WIDTH 15.3 % (12.0-15.0); WHITE BLOOD COUNT 8.2 x10^3/uL (4.8-10.8)
[2021-03-13 12:38] LABS: ESTIMATED AVERAGE GLUCOSE 126 mg/dL (70-100)
[2021-03-13 12:59] LABS: ALBUMIN 4.1 g/dL (3.2-5.5); ALBUMIN/GLOBULIN RATIO 1.4 (1.0-2.2); ALKALINE PHOSPHATASE 62 IU/L (42-121); ALT ALANINE AMINOTRANSFERASE 15 IU/L (10-60); AST ASPARTATE AMINOTRANSFERASE 19 IU/L (10-42); BILIRUBIN,TOTAL 0.8 mg/dL (0.2-1.0); BUN - BLOOD UREA NITROGEN 30 mg/dL (6-20); CALCIUM 8.8 mg/dL (8.5-10.3); CARBON DIOXIDE - CO2 26 mmol/L (21-32); CHLORIDE 95 mmol/L (101-111); CHOL/HDL RATIO 5.1 (<4.4); CHOLESTEROL 203 mg/dL; CREATININE 0.8 mg/dL (0.4-1.0); GFR - MDRD 73 (>89); GLUCOSE 87 mg/dL (70-100); HDL CHOLESTEROL 40 mg/dL; LDL CHOLESTEROL,CALCULATED 131 mg/dL; LDL/HDL RATIO 3.3 (<4.4); POTASSIUM 4.5 mmol/L (3.5-5.0); SODIUM 134 mmol/L (135-145); TRIGLYCERIDES 162 mg/dL; VLDL CHOLESTEROL 32 mg/dL
[2021-03-13 13:15] LABS: CREATININE,URINE 88.6 mg/dL; MICROALBUMIN,URINE < 0.2 mg/dL (0-300.0)
== END 2021-03-13 11:06 | disposition home or self-care (01) ==
LOC: LAB.R 11:05
PROVIDERS: ATTEND Registered Nurse
DX: I10 Essential (primary) hypertension (principal); E11.622 Type 2 diabetes mellitus with other skin ulcer; E07.9 Disorder of thyroid, unspecified; E66.01 Morbid (severe) obesity due to excess calories
CPT/HCPCS: 80053; 80061; 82043; 82570; 83036; 83721; 84443; 85025

== ENCOUNTER 2021-03-20 07:29 | Outpatient (CLI) | payer MEDICARE, MEDICAID | END 2021-03-20 07:30 | disposition home or self-care (01) | LOC: LAB 07:29 | PROVIDERS: ATTEND Registered Nurse | DX: S81.801A Unspecified open wound, right lower leg, initial encounter (principal); R89.5 Abnormal microbiological findings in specimens from other organs, systems and tissues | CPT/HCPCS: 87070; 87077; 87181; 87205 ==

== ENCOUNTER 2021-04-26 18:43 | Outpatient (CLI) | payer MEDICARE, MEDICAID | END 2021-04-26 18:44 | disposition critical access hospital (66) | LOC: EMS 18:43 | DX: R06.00 Dyspnea, unspecified (principal) | CPT/HCPCS: A0425; A0427 ==

== ENCOUNTER 2021-04-26 19:11 | Emergency (ER) | payer MEDICARE, MEDICAID ==
--- NOTE | 2021-04-26 19:14 | ED Physician Documentation ---
PD HPI DYSPNEA - Stated complaint Stated Complaint: SOA - Additional information Additional information: Patient is a 60-year-old female presenting to the emergency department with shortness of breath. Reports 1 week progressively worsening symptoms. Past medical significant for COPD, CHF, chronic lower extremity edema with stasis dermatitis. Patient reports has had difficulty laying flat due to her shortness of breath. Is unaware of any weight gain. Does report that she is continue to take her regular Lasix at home. Patient received DuoNeb's as well as 125 mg methylprednisolone prior to arrival. Review of Systems Constitutional: denies: Fever Eyes: denies: Loss of vision Ears: denies: Loss of hearing Nose: denies: Rhinorrhea / runny nose Throat: denies: Dental pain / toothache Cardiac: denies: Chest pain / pressure Respiratory: reports: Dyspnea, Cough, Wheezing. denies: Hemoptysis GI: denies: Abdominal Pain : denies: Dysuria PD PAST MEDICAL HISTORY - Past Medical History Cardiovascular: Hypertension, Peripheral Vascular Disease Respiratory: Asthma, Shortness of breath, Sleep apnea Neuro: Migraines, Peripheral neuropathy Endocrine/Autoimmune: Type 2 diabetes, HyPOthyroidism GI: Hepatitis : Incontinence, Nocturia, Frequency HEENT: Chronic vision loss Psych: Anxiety, Post traumatic stress disorder Musculoskeletal: Osteoarthritis, Fibromyalgia, Chronic back pain Derm: Other drug resistant infections, Herpes zoster - Past Surgical History Past Surgical History: Yes Cardiovascular: Other (PICC placement right arm) - Present Medications Home Medications: Ambulatory Orders Medication Instructions Recorded Confirmed Levothyroxine [Synthroid] 125 mcg PO DAILY 10/07/13 09/07/20 Lisinopril 20 mg PO DAILY 02/12/15 09/07/20 Methadone HCl 10 mg PO BID PRN 02/12/15 09/07/20 Meloxicam 15 mg PO BID 08/04/16 09/07/20 Furosemide [Lasix] 20 mg PO DAILY 09/09/18 09/07/20 Potassium Chloride [Klor-Con 10] 10 meq PO DAILY 09/09/18 09/07/20 Sertraline HCl 50 mg PO HS 09/09/18 09/07/20 Albuterol Sulfate [Proair Hfa 1 - 2 puffs PO Q6H PRN 03/06/19 09/07/20 Inhaler] Metformin HCl [Metformin ER 500 mg PO BID 03/30/20 09/07/20 Gastric] Nystatin [Nystop] 1 applic TOP BID #3 bottle 03/30/20 09/07/20 Oxycodone HCl/Acetaminophen 1 each PO TID PRN 05/29/20 09/07/20 [Percocet 10-325 mg Tablet] Pregabalin [Lyrica] 50 mg PO . 50 AM 100 MG PM 05/29/20 09/07/20 Cholecalciferol [Vitamin D3] 5,000 units PO DAILY 09/07/20 09/07/20 Vitamin B Complex/Folic Acid 1 tab PO DAILY 09/07/20 09/07/20 [B-Complex Tablet] ceFAZolin [Ancef] 2 gm IV Q6HR MDD 6 weeks 09/07/20 09/07/20 hydrOXYzine HCL [Hydroxyzine HCl] 50 mg PO QID PRN 09/07/20 09/07/20 Albuterol Sulf [Ventolin Hfa 1 - 2 puffs INH Q4HR PRN #1 inhaler 04/26/21 Inhaler] Azithromycin [Zithromax] 0 mg PO DAILY #6 tablet 04/26/21 Furosemide [Lasix] 80 mg PO DAILY #14 tablet 04/26/21 predniSONE [Deltasone] 60 mg PO DAILY 5 Days #15 tablet 04/26/21 - Allergies Allergies/Adverse Reactions: Allergies Allergy/AdvReac Type Severity Reaction Status Date / Time Penicillins Allergy Rash Verified 04/26/21 19:22 Sulfa (Sulfonamide Allergy Rash Verified 04/26/21 19:22 Antibiotics) - Social History Does the pt smoke?: Yes Smoking Status: Current every day smoker Does the pt drink ETOH?: No Does the pt have substance abuse?: No - Immunizations Immunizations are current?: Yes - POLST Patient has POLST: No Results - Vitals Vitals: Vital Signs - 24 hr 04/26/21 04/26/21 04/26/21 19:22 19:30 20:15 Temperature 36.3 C L Heart Rate 99 88 81 Respiratory 24 18 20 Rate Blood Pressure 165/62 H 165/62 H 176/64 H O2 Saturation 97 93 93 04/26/21 04/26/21 04/26/21 21:00 22:00 23:55 Temperature Heart Rate 78 84 83 Respiratory 21 21 24 Rate Blood Pressure 131/70 H 125/75 O2 Saturation 99 98 04/27/21 01:24 Temperature Heart Rate 84 Respiratory 22 Rate Blood Pressure 160/69 H O2 Saturation 94 Oxygen O2 Source Room air - EKG (time done) 1948 Rate: Rate (enter#) (74) Rhythm: NSR [place]: Normal Intervals: Normal OR, QRS normal QRS: Normal Ischemia: Normal ST segments Other comments: Other comments (Frequent premature ventricular complexes) - Labs Labs: Laboratory Tests 04/26/21 04/26/21 04/26/21 19:27 19:27 19:27 WBC 10.8 RBC 3.80 L Hgb 10.4 L Hct 33.9 L MCV 89.2 MCH 27.4 MCHC 30.7 L RDW 14.9 Plt Count 261 MPV 10.6 Neut # (Auto) 7.1 H Lymph # (Auto) 2.5 [place] # (Auto) 0.8 Eos # (Auto) 0.3 Baso # (Auto) 0.0 Absolute Nucleated RBC 0.00 Nucleated RBC % 0.0 Sodium 137 Potassium 4.3 Chloride 98 L Carbon Dioxide 28 Anion Gap 11.0 BUN 54 H Creatinine 1.3 H Estimated GFR (MDRD) 42 L Glucose 150 H Calcium 8.8 Total Bilirubin 0.6 AST 17 ALT 17 Alkaline Phosphatase 87 Troponin I High Sens 3.9 B-Natriuretic Peptide Total Protein 8.1 Albumin 4.2 Globulin 3.9 Albumin/Globulin Ratio 1.1 Lipase 22 Nasal Adenovirus (PCR) Nasal B. parapertussis DNA (PCR) Nasal Coronavir 229E PCR Nasal Coronavir HKU1 PCR Nasal Coronavir NL63 PCR Nasal Coronavir OC43 PCR Nasal Enterovir/Rhinovir PCR Nasal Influenza B PCR Nasal Influenza A PCR Nasal Parainfluen 1 PCR Nasal Parainfluen 2 PCR Nasal Parainfluen 3 PCR Nasal Parainfluen 4 PCR Nasal RSV (PCR) Nasal B.pertussis DNA PCR Nasal C.pneumoniae (PCR) Michael Human Metapneumo PCR Nasal M.pneumoniae (PCR) Nasal SARS-CoV-2 (PCR) 04/26/21 04/26/21 19:27 20:40 WBC RBC Hgb Hct MCV MCH MCHC RDW Plt Count MPV Neut # (Auto) Lymph # (Auto) [place] # (Auto) Eos # (Auto) Baso # (Auto) Absolute Nucleated RBC Nucleated RBC % Sodium Potassium Chloride Carbon Dioxide Anion Gap BUN Creatinine Estimated GFR (MDRD) Glucose Calcium Total Bilirubin AST ALT Alkaline Phosphatase Troponin I High Sens B-Natriuretic Peptide 148 H Total Protein Albumin Globulin Albumin/Globulin Ratio Lipase Nasal Adenovirus (PCR) NOT DETECTED Nasal B. parapertussis DNA (PCR) NOT DETECTED Nasal Coronavir 229E PCR NOT DETECTED Nasal Coronavir HKU1 PCR NOT DETECTED Nasal Coronavir NL63 PCR NOT DETECTED Nasal Coronavir OC43 PCR NOT DETECTED Nasal Enterovir/Rhinovir PCR NOT DETECTED Nasal Influenza B PCR NOT DETECTED Nasal Influenza A PCR NOT DETECTED Nasal Parainfluen 1 PCR NOT DETECTED Nasal Parainfluen 2 PCR NOT DETECTED Nasal Parainfluen 3 PCR NOT DETECTED Nasal Parainfluen 4 PCR NOT DETECTED Nasal RSV (PCR) NOT DETECTED Nasal B.pertussis DNA PCR NOT DETECTED Nasal C.pneumoniae (PCR) NOT DETECTED Michael Human Metapneumo PCR NOT DETECTED Nasal M.pneumoniae (PCR) NOT DETECTED Nasal SARS-CoV-2 (PCR) NOT DETECTED PD MEDICAL DECISION MAKING - ED course Complexity details: reviewed old records, reviewed results, re-evaluated patient, d/w patient, d/w relationship consultant ED course: Patient is 60-year-old female with known history of COPD, CHF, morbid obesity, chronic lower extremity edema presenting to the emergency department with 1 week history of shortness of breath. Tachypneic with low level tachycardia on arrival but maintaining adequate oxygen saturations on room air. Patient received breathing treatments and methylprednisolone prior to arrival. EKG as outlined above was negative for indications of acute cardiac ischemia or dysrhythmia however did demonstrate frequent premature ventricular complexes. Comprehensive labs obtained were generally within normal limits are nonactionable. Of note there was no significant elevation in troponin and patient did have a very mild elevation in BNP. Chest x-ray did demonstrate some pulmonary congestion consistent with acute heart failure. Patient was treated with Lasix as well as additional breathing treatments in the emergency department. Patient passed an ambulatory trial while in the emergency department and was Able to maintain adequate oxygen saturations with physical activity. I did discuss her care with the hospitalist service however at this time patient does not meet criterion for admission. Will increase her daily Lasix as well as discharge on ongoing course of prednisone and refill her albuterol inhaler. I encouraged careful follow-up with primary care return to the emergency department for new or worsening symptoms. Departure - Departure Disposition: 01 Home, Self Care Clinical Impression: Congestive heart failure, Moderate COPD (chronic obstructive pulmonary disease) Condition: Fair Instructions: ED COPD Flare Prescriptions: Albuterol Sulf [Ventolin Hfa Inhaler] 1 - 2 puffs INH Q4HR PRN #1 inhaler PRN Reason: Shortness Of Air/Wheezing predniSONE [Deltasone] 60 mg PO DAILY 5 Days #15 tablet Furosemide [Lasix] 80 mg PO DAILY #14 tablet Azithromycin [Zithromax] 0 mg PO DAILY #6 tablet Comments: Thank you for allowing us to care for you today at [facility]. I will be discharging with some medications to take at home. Like you to increase your home Lasix to 80 mg daily for the next week. Also be discharging on a short course of an oral steroid, with an albuterol inhaler and on a short course of an oral antibiotic. Please take these as directed. Please follow-up with your primary care doctor as soon as possible. If it anytime you have any new or worsening symptoms please not hesitate to return to the emergency department. Discharge Date/Time: 04/27/21 01:25
[2021-04-26 19:39] LABS: BASOPHILS % (AUTO) 0.3 %; EOSINOPHILS # (AUTO) 0.3 10^3/uL (0.0-0.7); EOSINOPHILS % (AUTO) 2.8 %; HCT - HEMATOCRIT 33.9 % (37.0-47.0); HGB - HEMOGLOBIN 10.4 g/dL (12.0-16.0); LYMPHOCYTES # (AUTO) 2.5 10^3/uL (1.5-3.5); LYMPHOCYTES % (AUTO) 23.3 %; MEAN CORPUSCULAR HEMOGLOBIN 27.4 pg (27.0-31.0); MEAN CORPUSCULAR HGB CONC 30.7 g/dL (32.0-36.0); MEAN CORPUSCULAR VOLUME 89.2 fL (81.0-99.0); MEAN PLATELET VOLUME 10.6 fL (7.9-10.8); MONOCYTES # (AUTO) 0.8 10^3/uL (0.0-1.0); MONOCYTES % (AUTO) 7.5 %; NEUTROPHILS # (AUTO) 7.1 10^3/uL (1.5-6.6); NEUTROPHILS % (AUTO) 65.9 %; PLT - PLATELET COUNT 261 10^3/uL (130-450); RED CELL DISTRIBUTION WIDTH 14.9 % (12.0-15.0); WHITE BLOOD COUNT 10.8 x10^3/uL (4.8-10.8)
[2021-04-26 19:57] LABS: ALBUMIN 4.2 g/dL (3.2-5.5); ALBUMIN/GLOBULIN RATIO 1.1 (1.0-2.2); BILIRUBIN,TOTAL 0.6 mg/dL (0.2-1.0); CALCIUM 8.8 mg/dL (8.5-10.3); CREATININE 1.3 mg/dL (0.4-1.0); POTASSIUM 4.3 mmol/L (3.5-5.0); TOTAL PROTEIN 8.1 g/dL (6.7-8.2)
--- NOTE | 2021-04-26 20:01 | XRAY Report ---
PROCEDURE: Chest 1 View X-Ray INDICATIONS: Chest Pain TECHNIQUE: One view of the chest was acquired. COMPARISON: 05/29/2020. FINDINGS: Surgical changes and devices: None. Lungs and pleura: No pleural effusions or pneumothorax. There is cephalization of pulmonary vasculat ure, central vascular congestion and interstitial prominence. Mediastinum: Mediastinal contours appear normal. Heart at the upper limits of normal for size. Bones and chest wall: No suspicious bony lesions. Overlying soft tissues appear unremarkable. IMPRESSION: Pulmonary vascular congestion compatible with CHF. Reviewed by: Vickie Aguilera MD, PhD on 04/26/2021 7:59 PM PST Approved by: Vickie Aguilera MD, PhD on 04/26/2021 7:59 PM PST Station ID: [id number]
[2021-04-26] MEDS ORDERED: LORazepam 2 MG/ML VIAL IVP STA (20:05)
[2021-04-26] MEDS ORDERED: FUROSEMIDE 100 MG/10 ML VIAL IVP STA (20:32)
[2021-04-26 21:37] LABS: B. PARAPERTUSSIS- RESP PCR PAN NOT DETECTED; B. PERTUSSIS- RESP PCR PANEL NOT DETECTED; C. PNEUMONIAE- RESP PCR PANEL NOT DETECTED; CORONAVIRUS 229E-RESP PCR NOT DETECTED; CORONAVIRUS HKU1-RESP PCR NOT DETECTED; CORONAVIRUS NL63-RESP PCR NOT DETECTED; CORONAVIRUS OC43-RESP PCR NOT DETECTED; HUMAN METAPNEUMOVIRUS NOT DETECTED; INFLUENZA A- RESP PCR PANEL NOT DETECTED; INFLUENZA B - RESP PCR PANEL NOT DETECTED; M. PNEUMONIAE- RESP PCR PANEL NOT DETECTED; PARAINFLUENZA VIRUS 1 NOT DETECTED; PARAINFLUENZA VIRUS 2 NOT DETECTED; PARAINFLUENZA VIRUS 3 NOT DETECTED; PARAINFLUENZA VIRUS 4 NOT DETECTED; RHINOVIRUS/ENTEROVIRUS NOT DETECTED; RSV- RESP PCR PANEL NOT DETECTED; SARS-CoV-2 -RESP PCR PANEL NOT DETECTED
[2021-04-26] MEDS ORDERED: IPRATROPIUM/ALBUTEROL 3 ML NEB INH STA (23:34)
[2021-04-27 01:26] VITALS: BP 160/69
== END 2021-04-27 01:25 | disposition home or self-care (01) ==
LOC: EDUNIT# → ED 19:11
DX: I11.0 Hypertensive heart disease with heart failure (principal); I50.9 Heart failure, unspecified; J44.9 Chronic obstructive pulmonary disease, unspecified; R60.9 Edema, unspecified; E11.42 Type 2 diabetes mellitus with diabetic polyneuropathy; Z79.84 Long term (current) use of oral hypoglycemic drugs; F17.200 Nicotine dependence, unspecified, uncomplicated; Z20.822 Contact with and (suspected) exposure to COVID-19; E66.01 Morbid (severe) obesity due to excess calories; I49.3 Ventricular premature depolarization
CPT/HCPCS: 36415; 71045; 80053; 83690; 83880; 84484; 85025; 87631; 93005; 94640; 96374; 96375; 99283; 99284; J1940; J2060; 0202U

== ENCOUNTER 2021-04-27 01:28 | Outpatient (CLI) | payer MEDICARE, MEDICAID | END 2021-04-27 01:29 | disposition home or self-care (01) | LOC: EMS 01:28 | PROVIDERS: ATTEND Student in an Organized Health Care Education/Training Program | DX: E66.01 Morbid (severe) obesity due to excess calories (principal) | CPT/HCPCS: A0425; A0428 ==

== ENCOUNTER 2021-05-07 15:42 | Emergency (ER) | payer MEDICARE, MEDICAID ==
--- NOTE | 2021-05-07 15:55 | ED Physician Documentation ---
PD HPI FEVER - Stated complaint Stated Complaint: FEVER - History obtained from History obtained from: Patient, EMS - Additional information Additional information: 60-year-old woman with history of diabetes, morbid obesity, chronic pain was seen by my partner about 10 days ago for shortness of breath. She is not aware of a diagnosis of COPD but she was treated at that time with basically a felt to be exacerbation of her COPD with a very modest elevation in BNP to 148 and a chest x-ray showing pulmonary vascular congestion. She was doing okay but then developed a fever, body aches and myalgias last night. She has a little bit of a runny nose and cough. She denies loss of taste or smell. She is fully immunized against Covid with Moderna but not boosted. She denies abdominal pain, diarrhea, rash or urinary complaints. Review of Systems Ten Systems: 10 systems reviewed and negative Constitutional: reports: Fever, Chills, Myalgias, Fatigue Nose: reports: Rhinorrhea / runny nose Throat: denies: Sore throat Cardiac: denies: Chest pain / pressure, Palpitations Respiratory: reports: Cough. denies: Dyspnea GI: denies: Abdominal Pain, Nausea, Vomiting, Diarrhea PD PAST MEDICAL HISTORY - Past Medical History Cardiovascular: Hypertension, Peripheral Vascular Disease Respiratory: Asthma, Shortness of breath, Sleep apnea Neuro: Migraines, Peripheral neuropathy Endocrine/Autoimmune: Type 2 diabetes, HyPOthyroidism GI: Hepatitis : Incontinence, Nocturia, Frequency HEENT: Chronic vision loss Psych: Anxiety, Post traumatic stress disorder Musculoskeletal: Osteoarthritis, Fibromyalgia, Chronic back pain Derm: Other drug resistant infections, Herpes zoster - Past Surgical History Past Surgical History: Yes Cardiovascular: Other (PICC placement right arm) - Present Medications Home Medications: Ambulatory Orders Medication Instructions Recorded Confirmed Levothyroxine [Synthroid] 125 mcg PO DAILY 10/07/13 09/07/20 Lisinopril 20 mg PO DAILY 02/12/15 09/07/20 Methadone HCl 10 mg PO BID PRN 02/12/15 09/07/20 Meloxicam 15 mg PO BID 08/04/16 09/07/20 Furosemide [Lasix] 20 mg PO DAILY 09/09/18 09/07/20 Potassium Chloride [Klor-Con 10] 10 meq PO DAILY 09/09/18 09/07/20 Sertraline HCl 50 mg PO HS 09/09/18 09/07/20 Albuterol Sulfate [Proair Hfa 1 - 2 puffs PO Q6H PRN 03/06/19 09/07/20 Inhaler] Metformin HCl [Metformin ER 500 mg PO BID 03/30/20 09/07/20 Gastric] Nystatin [Nystop] 1 applic TOP BID #3 bottle 03/30/20 09/07/20 Oxycodone HCl/Acetaminophen 1 each PO TID PRN 05/29/20 09/07/20 [Percocet 10-325 mg Tablet] Pregabalin [Lyrica] 50 mg PO . 50 AM 100 MG PM 05/29/20 09/07/20 Cholecalciferol [Vitamin D3] 5,000 units PO DAILY 09/07/20 09/07/20 Vitamin B Complex/Folic Acid 1 tab PO DAILY 09/07/20 09/07/20 [B-Complex Tablet] ceFAZolin [Ancef] 2 gm IV Q6HR MDD 6 weeks 09/07/20 09/07/20 hydrOXYzine HCL [Hydroxyzine HCl] 50 mg PO QID PRN 09/07/20 09/07/20 Albuterol Sulf [Ventolin Hfa 1 - 2 puffs INH Q4HR PRN #1 inhaler 04/26/21 Inhaler] Azithromycin [Zithromax] 0 mg PO DAILY #6 tablet 04/26/21 Furosemide [Lasix] 80 mg PO DAILY #14 tablet 04/26/21 predniSONE [Deltasone] 60 mg PO DAILY 5 Days #15 tablet 04/26/21 Doxycycline Hyclate 100 mg PO BID #14 cap 05/07/21 - Allergies Allergies/Adverse Reactions: Allergies Allergy/AdvReac Type Severity Reaction Status Date / Time Penicillins Allergy Rash Verified 05/07/21 15:52 Sulfa (Sulfonamide Allergy Rash Verified 05/07/21 15:52 Antibiotics) - Social History Does the pt smoke?: Yes Smoking Status: Current every day smoker Does the pt drink ETOH?: No Does the pt have substance abuse?: No - Immunizations Immunizations are current?: Yes - POLST Patient has POLST: No PD ED PE NORMAL - Vitals Vital signs reviewed: Yes - General General: Alert and oriented X 3, No acute distress - HEENT HEENT: PERRL, EOMI - Neck Neck: Supple, no meningeal sign, No bony TTP - Cardiac Cardiac: RRR, No murmur - Respiratory Respiratory: No respiratory distress, Clear bilaterally - Abdomen Abdomen: Soft, Non tender - Back Back: No CVA TTP, No spinal TTP - Derm Derm: Normal color, Warm and dry, No rash - Neuro Neuro: Alert and oriented X 3, Normal speech Results - Vitals Vitals: Vital Signs - 24 hr 05/07/21 05/07/21 05/07/21 15:52 15:58 17:28 Temperature 38.1 C H Heart Rate 100 97 Respiratory 26 H 24 Rate Blood Pressure 144/122 H 144/122 H 163/70 H O2 Saturation 88 L 100 97 05/07/21 17:47 Temperature 37.6 C Heart Rate 84 Respiratory 19 Rate Blood Pressure 139/58 H O2 Saturation 92 Oxygen O2 Source Room air - Labs Labs: Laboratory Tests 05/07/21 05/07/21 05/07/21 16:02 16:02 16:02 WBC 17.4 H RBC 3.73 L Hgb 10.3 L Hct 33.1 L MCV 88.7 MCH 27.6 MCHC 31.1 L RDW 15.4 H Plt Count 237 MPV 10.3 Neut # (Auto) 14.7 H Lymph # (Auto) 1.4 L Jones # (Auto) 1.1 H Eos # (Auto) 0.1 Baso # (Auto) 0.0 Absolute Nucleated RBC 0.00 Nucleated RBC % 0.0 Sodium 135 Potassium 4.7 Chloride 97 L Carbon Dioxide 29 Anion Gap 9.0 BUN 37 H Creatinine 1.3 H Estimated GFR (MDRD) 42 L Glucose 142 H Lactic Acid 0.7 Calcium 8.7 Urine Color Urine Clarity Urine pH Ur Specific [place] Urine Protein Urine Glucose (UA) Urine Ketones Urine Occult Blood Urine Nitrite Urine Bilirubin Urine Urobilinogen Ur Leukocyte Esterase Ur Microscopic Review Urine Culture Comments Nasal Adenovirus (PCR) Nasal B. parapertussis DNA (PCR) Nasal Coronavir 229E PCR Nasal Coronavir HKU1 PCR Nasal Coronavir NL63 PCR Nasal Coronavir OC43 PCR Nasal Enterovir/Rhinovir PCR Nasal Influenza B PCR Nasal Influenza A PCR Nasal Parainfluen 1 PCR Nasal Parainfluen 2 PCR Nasal Parainfluen 3 PCR Nasal Parainfluen 4 PCR Nasal RSV (PCR) Nasal B.pertussis DNA PCR Nasal C.pneumoniae (PCR) Michael Human Metapneumo PCR Nasal M.pneumoniae (PCR) Nasal SARS-CoV-2 (PCR) 05/07/21 05/07/21 16:05 16:20 WBC RBC Hgb Hct MCV MCH MCHC RDW Plt Count MPV Neut # (Auto) Lymph # (Auto) [place] # (Auto) Eos # (Auto) Baso # (Auto) Absolute Nucleated RBC Nucleated RBC % Sodium Potassium Chloride Carbon Dioxide Anion Gap BUN Creatinine Estimated GFR (MDRD) Glucose Lactic Acid Calcium Urine Color YELLOW Urine Clarity CLEAR Urine pH 7.5 Ur Specific [place] 1.020 Urine Protein TRACE Urine Glucose (UA) NEGATIVE Urine Ketones NEGATIVE Urine Occult Blood TRACE-INTA Urine Nitrite NEGATIVE Urine Bilirubin NEGATIVE Urine Urobilinogen 0.2 (NORMAL) Ur Leukocyte Esterase NEGATIVE Ur Microscopic Review NOT INDICATED Urine Culture Comments NOT INDICATED Nasal Adenovirus (PCR) NOT DETECTED Nasal B. parapertussis DNA (PCR) NOT DETECTED Nasal Coronavir 229E PCR NOT DETECTED Nasal Coronavir HKU1 PCR NOT DETECTED Nasal Coronavir NL63 PCR NOT DETECTED Nasal Coronavir OC43 PCR NOT DETECTED Nasal Enterovir/Rhinovir PCR NOT DETECTED Nasal Influenza B PCR NOT DETECTED Nasal Influenza A PCR NOT DETECTED Nasal Parainfluen 1 PCR NOT DETECTED Nasal Parainfluen 2 PCR DETECTED A Nasal Parainfluen 3 PCR NOT DETECTED Nasal Parainfluen 4 PCR NOT DETECTED Nasal RSV (PCR) NOT DETECTED Nasal B.pertussis DNA PCR NOT DETECTED Nasal C.pneumoniae (PCR) NOT DETECTED Michael Human Metapneumo PCR NOT DETECTED Nasal M.pneumoniae (PCR) NOT DETECTED Nasal SARS-CoV-2 (PCR) NOT DETECTED - Rads (name of study) 1v chest Radiology: EMP read contemporaneously PD MEDICAL DECISION MAKING - ED course ED course: 60-year-old woman presents with fever. She is not ill-appearing, her main concern on arrival is that she missed her home methadone dose this morning. She has some respiratory symptoms but really no overt positive findings on exam other than being febrile. But on room air her sat is 88% and she is a little tachypneic. Her lungs are fairly clear, that said her examination is certainly limited by body habitus noting her BMI of 64.6. 60-year-old with multiple comorbidities and COPD presents with fever since last night with borderline pulse oximetry. Chest x-ray is clear, she does have an elevated white count. She does not appear hypervolemic but exam is limited somewhat by body habitus. Urine is clean. Chest x-ray is clear. She is found to have nasal parainfluenza. Despite the negative chest x-ray and the viral cause I will treat her with antibiotics given the white count. Otherwise she remained well-appearing and eager for discharge. Departure - Departure Disposition: 01 Home, Self Care Clinical Impression: Moderate COPD (chronic obstructive pulmonary disease), Parainfluenza virus infection Fever Qualifiers: Encounter type: initial encounter Condition: Good Record reviewed to determine appropriate education?: Yes Instructions: ED Viral Syndrome Prescriptions: Doxycycline Hyclate 100 mg PO BID #14 cap Comments: Your chest x-ray is clear. The Covid test was negative for Covid but did show a different virus called parainfluenza. Given your elevated white count and other health problems despite the apparent viral cause I am treating you with antibiotics. Return for new or worsening symptoms. Follow-up with your doctor next week for recheck. I sent your prescription electronically to [facility] in [place].
[2021-05-07] MEDS ORDERED: ACETAMINOPHEN 325 MG TABLET PO STA (15:56)
[2021-05-07] MEDS ORDERED: METHADONE 5 MG TABLET PO STA (15:56)
[2021-05-07 16:18] LABS: BASOPHILS % (AUTO) 0.2 %; EOSINOPHILS # (AUTO) 0.1 10^3/uL (0.0-0.7); EOSINOPHILS % (AUTO) 0.7 %; HCT - HEMATOCRIT 33.1 % (37.0-47.0); HGB - HEMOGLOBIN 10.3 g/dL (12.0-16.0); LYMPHOCYTES # (AUTO) 1.4 10^3/uL (1.5-3.5); MEAN CORPUSCULAR HEMOGLOBIN 27.6 pg (27.0-31.0); MEAN CORPUSCULAR HGB CONC 31.1 g/dL (32.0-36.0); MEAN CORPUSCULAR VOLUME 88.7 fL (81.0-99.0); MEAN PLATELET VOLUME 10.3 fL (7.9-10.8); MONOCYTES # (AUTO) 1.1 10^3/uL (0.0-1.0); MONOCYTES % (AUTO) 6.5 %; NEUTROPHILS # (AUTO) 14.7 10^3/uL (1.5-6.6); NEUTROPHILS % (AUTO) 84.1 %; PLT - PLATELET COUNT 237 10^3/uL (130-450); RED BLOOD COUNT 3.73 10^6/uL (4.20-5.40); RED CELL DISTRIBUTION WIDTH 15.4 % (12.0-15.0); WHITE BLOOD COUNT 17.4 x10^3/uL (4.8-10.8)
[2021-05-07 16:21] LABS: CALCIUM 8.7 mg/dL (8.5-10.3); CREATININE 1.3 mg/dL (0.4-1.0); POTASSIUM 4.7 mmol/L (3.5-5.0)
[2021-05-07 16:42] LABS: BILIRUBIN,URINE NEGATIVE (NEGATIVE); GLUCOSE, URINE (UA) NEGATIVE (NEGATIVE); KETONES,URINE (UA) NEGATIVE (NEGATIVE); LEUKOCYTE ESTERASE, URINE NEGATIVE (NEGATIVE); NITRITE,URINE NEGATIVE (NEGATIVE); OCCULT BLOOD,URINE TRACE-INTA (NEGATIVE); PH,URINE 7.5 PH (5.0-7.5); PROTEIN,URINE TRACE mg/dL (NEGATIVE); UROBILINOGEN,URINE 0.2 (NORMAL) E.U./dL (NORMAL)
[2021-05-07 16:47] LABS: CLARITY,URINE CLEAR (CLEAR)
--- NOTE | 2021-05-07 17:00 | XRAY Report ---
PROCEDURE: Chest 1 View X-Ray INDICATIONS: Fever TECHNIQUE: One view of the chest was acquired. COMPARISON: 04/26/2021. FINDINGS: Surgical changes and devices: None. Lungs and pleura: No pleural effusions or pneumothorax. Pulmonary vascular congestion and increased interstitial markings. Mediastinum: Mediastinal contours appear normal. Heart size is normal. Bones and chest wall: No suspicious bony lesions. Overlying soft tissues appear unremarkable. IMPRESSION: Pulmonary vascular congestion as seen on the prior study. Reviewed by: Sergo Chauhan MD on 05/07/2021 4:58 PM PST Approved by: Sergo Chauhan MD on 05/07/2021 4:58 PM PST Station ID: [id number]
[2021-05-07 17:17] LABS: B. PARAPERTUSSIS- RESP PCR PAN NOT DETECTED; B. PERTUSSIS- RESP PCR PANEL NOT DETECTED; C. PNEUMONIAE- RESP PCR PANEL NOT DETECTED; CORONAVIRUS 229E-RESP PCR NOT DETECTED; CORONAVIRUS HKU1-RESP PCR NOT DETECTED; CORONAVIRUS NL63-RESP PCR NOT DETECTED; CORONAVIRUS OC43-RESP PCR NOT DETECTED; HUMAN METAPNEUMOVIRUS NOT DETECTED; INFLUENZA A- RESP PCR PANEL NOT DETECTED; INFLUENZA B - RESP PCR PANEL NOT DETECTED; M. PNEUMONIAE- RESP PCR PANEL NOT DETECTED; PARAINFLUENZA VIRUS 1 NOT DETECTED; PARAINFLUENZA VIRUS 2 DETECTED; PARAINFLUENZA VIRUS 3 NOT DETECTED; PARAINFLUENZA VIRUS 4 NOT DETECTED; RHINOVIRUS/ENTEROVIRUS NOT DETECTED; RSV- RESP PCR PANEL NOT DETECTED; SARS-CoV-2 -RESP PCR PANEL NOT DETECTED
[2021-05-07] MEDS ORDERED: DOXYCYCLINE 100 MG TABLET PO STA (17:32)
[2021-05-07 20:00] VITALS: BP 108/70
== END 2021-05-07 19:57 | disposition home or self-care (01) ==
LOC: EDUNIT# → ED 15:42
DX: J44.9 Chronic obstructive pulmonary disease, unspecified (principal); B34.8 Other viral infections of unspecified site; I10 Essential (primary) hypertension; E11.42 Type 2 diabetes mellitus with diabetic polyneuropathy; Z79.84 Long term (current) use of oral hypoglycemic drugs; F17.200 Nicotine dependence, unspecified, uncomplicated
CPT/HCPCS: 36415; 71045; 80048; 81003; 83605; 85025; 87040; 87631; 99283; 99284; A9270; 0202U; 81001; 87086

== ENCOUNTER 2021-05-08 11:52 | Inpatient (IN) | payer MEDICARE, MEDICAID ==
[2021-05-08] MEDS ORDERED: methylPREDNISolone SUCCINATE 125 MG/2 ML VIAL IVP STA (12:31)
[2021-05-08] MEDS ORDERED: cefTRIAXone 1 GM in SODIUM CHLORIDE 0.9% MINIBAG 100 ML IV STA (12:31)
[2021-05-08] MEDS ORDERED: IPRATROPIUM/ALBUTEROL 3 ML NEB INH STA (12:31)
[2021-05-08] MEDS ORDERED: HYDROmorphone 1 MG/ML CARPUJECT IVP STA (12:31)
[2021-05-08] MEDS ORDERED: oxyCODONE 5 MG TABLET PO STA (12:32)
[2021-05-08] MEDS ORDERED: METHADONE 5 MG TABLET PO STA ×2 (12:32→13:34)
--- NOTE | 2021-05-08 12:35 | ED Physician Documentation ---
PD HPI DYSPNEA - Stated complaint Stated Complaint: SOA - Chief complaint Chief Complaint: Resp - History obtained from History obtained from: Patient, EMS - Additional information Additional information: This is a 60-year-old woman with chronic pain, morbid obesity with BMI in the mid 60s, probably COPD, diabetes who I saw yesterday for shortness of breath. She tested positive for parainfluenza and had a positive white count. She requested discharge home. At the time she had some sats around 90 on room air but was seeming to do okay. She was sent home on doxycycline. She returns today worse with a oxygen requirement. My history is limited at initial evaluation because she is clearly in narcotic withdrawal having not taken her usual meds today and is moaning and crying and complaining of all over pain, and resistant to history taking because she says she cannot do anything until she gets some pain medicine. Review of Systems Unable to obtain: Uncooperative PD PAST MEDICAL HISTORY - Past Medical History Cardiovascular: Hypertension, Peripheral Vascular Disease Respiratory: Asthma, Shortness of breath, Sleep apnea Neuro: Migraines, Peripheral neuropathy Endocrine/Autoimmune: Type 2 diabetes, HyPOthyroidism GI: Hepatitis : Incontinence, Nocturia, Frequency HEENT: Chronic vision loss Psych: Anxiety, Post traumatic stress disorder Musculoskeletal: Osteoarthritis, Fibromyalgia, Chronic back pain Derm: Other drug resistant infections, Herpes zoster - Past Surgical History Past Surgical History: Yes Cardiovascular: Other - Present Medications Home Medications: Ambulatory Orders Medication Instructions Recorded Confirmed Levothyroxine [Synthroid] 125 mcg PO DAILY 10/07/13 09/07/20 Lisinopril 20 mg PO DAILY 02/12/15 09/07/20 Methadone HCl 10 mg PO BID PRN 02/12/15 09/07/20 Meloxicam 15 mg PO BID 08/04/16 09/07/20 Furosemide [Lasix] 20 mg PO DAILY 09/09/18 09/07/20 Potassium Chloride [Klor-Con 10] 10 meq PO DAILY 09/09/18 09/07/20 Sertraline HCl 50 mg PO HS 09/09/18 09/07/20 Albuterol Sulfate [Proair Hfa 1 - 2 puffs PO Q6H PRN 03/06/19 09/07/20 Inhaler] Metformin HCl [Metformin ER 500 mg PO BID 03/30/20 09/07/20 Gastric] Nystatin [Nystop] 1 applic TOP BID #3 bottle 03/30/20 09/07/20 Oxycodone HCl/Acetaminophen 1 each PO TID PRN 05/29/20 09/07/20 [Percocet 10-325 mg Tablet] Pregabalin [Lyrica] 50 mg PO . 50 AM 100 MG PM 05/29/20 09/07/20 Cholecalciferol [Vitamin D3] 5,000 units PO DAILY 09/07/20 09/07/20 Vitamin B Complex/Folic Acid 1 tab PO DAILY 09/07/20 09/07/20 [B-Complex Tablet] ceFAZolin [Ancef] 2 gm IV Q6HR MDD 6 weeks 09/07/20 09/07/20 hydrOXYzine HCL [Hydroxyzine HCl] 50 mg PO QID PRN 09/07/20 09/07/20 Albuterol Sulf [Ventolin Hfa 1 - 2 puffs INH Q4HR PRN #1 inhaler 04/26/21 Inhaler] Azithromycin [Zithromax] 0 mg PO DAILY #6 tablet 04/26/21 Furosemide [Lasix] 80 mg PO DAILY #14 tablet 04/26/21 predniSONE [Deltasone] 60 mg PO DAILY 5 Days #15 tablet 04/26/21 Doxycycline Hyclate 100 mg PO BID #14 cap 05/07/21 - Allergies Allergies/Adverse Reactions: Allergies Allergy/AdvReac Type Severity Reaction Status Date / Time Penicillins Allergy Rash Verified 05/07/21 15:52 Sulfa (Sulfonamide Allergy Rash Verified 05/07/21 15:52 Antibiotics) - Social History Does the pt smoke?: Yes Smoking Status: Current every day smoker Does the pt drink ETOH?: No Does the pt have substance abuse?: No - Immunizations Immunizations are current?: Yes - POLST Patient has POLST: No PD ED PE NORMAL - Vitals Vital signs reviewed: Yes - General General: Other (She is moaning and restless, with dilated pupils consistent with narcotic withdrawal) - HEENT HEENT: Pharynx benign - Neck Neck: Supple, no meningeal sign, No bony TTP - Cardiac Cardiac: RRR, No murmur - Respiratory Respiratory: Other (Diminished throughout, exam limited by body habitus with BMI of 68. She is tachypneic though. Room air sats reported to be 85%.) - Abdomen Abdomen: Soft, Non tender - Back Back: No CVA TTP, No spinal TTP - Derm Derm: Normal color, Warm and dry - Extremities Extremities: Other (Compression wraps on the lower legs) - Neuro Neuro: Alert and oriented X 3, Normal speech - Psych Psych: Other (Restless and anxious likely due to narcotic withdrawal.) Results - Vitals Vitals: Vital Signs - 24 hr 05/08/21 05/08/21 05/08/21 12:05 12:19 12:57 Temperature 38.1 C H Heart Rate 111 H 109 H Respiratory 28 H 25 H Rate Blood Pressure 182/79 H O2 Saturation 97 95 05/08/21 13:10 Temperature Heart Rate 112 H Respiratory 28 H Rate Blood Pressure O2 Saturation Oxygen O2 Source Oxymask Oxygen Flow Rate 5 - EKG (time done) 1340 Rate: Rate (enter#) (112) Rhythm: Sinus tachycardia [place]: Normal QRS: Low voltage Ischemia: Non specific changes. No: ST elevation c/w ischemia, ST depression Computer interpretation: Agree with computer - Labs Labs: Laboratory Tests 05/08/21 05/08/21 05/08/21 13:15 13:15 13:15 WBC 23.9 H RBC 3.83 L Hgb 10.7 L Hct 34.4 L MCV 89.8 MCH 27.9 MCHC 31.1 L RDW 15.8 H Plt Count 232 MPV 10.4 Neut # (Auto) 21.2 H Lymph # (Auto) 1.0 L [place] # (Auto) 1.5 H Eos # (Auto) 0.1 Baso # (Auto) 0.1 Absolute Nucleated RBC 0.00 Nucleated RBC % 0.0 Manual Slide Review Indicated RBC Morph Micro Appear 2+ ANISOCYTOSIS VBG pH VBG pCO2 VBG pO2 VBG HCO3 VBG Total CO2 VBG O2 Saturation VBG Base Excess Sodium 138 Potassium 4.8 Chloride 99 L Carbon Dioxide 28 Anion Gap 11.0 BUN 41 H Creatinine 1.3 H Estimated GFR (MDRD) 42 L Glucose 195 H Lactic Acid Calcium 9.1 B-Natriuretic Peptide 106 H 05/08/21 05/08/21 13:15 13:15 WBC RBC Hgb Hct MCV MCH MCHC RDW Plt Count MPV Neut # (Auto) Lymph # (Auto) [place] # (Auto) Eos # (Auto) Baso # (Auto) Absolute Nucleated RBC Nucleated RBC % Manual Slide Review RBC Morph Micro Appear VBG pH 7.260 L VBG pCO2 65.9 H VBG pO2 46.0 VBG HCO3 28.9 H VBG Total CO2 30.9 H VBG O2 Saturation 78.7 VBG Base Excess 0.6 Sodium Potassium Chloride Carbon Dioxide Anion Gap BUN Creatinine Estimated GFR (MDRD) Glucose Lactic Acid 0.8 Calcium B-Natriuretic Peptide - Rads (name of study) Single view chest x-ray shows pulmonary vascular congestion similar to a study done yesterday. Radiology: EMP read contemporaneously PD MEDICAL DECISION MAKING - ED course ED course: 60-year-old woman with probably COPD, history of CHF, morbid obesity, and chronic opiate use presents with worse shortness of breath since yesterday after being diagnosed with parainfluenza and now is restless and in narcotic withdrawal. After the administration of her usual narcotics as well as an IV rescue dose she was much more relaxed and her breathing was easier. Work-up demonstrates a stable x-ray showing mild pulmonary edema but with insignificant elevation in her BNP and her chest x-ray is stable over the last couple of weeks. Her white count has gone up, but could be spurious related to steroid use. Her renal function is stable over the last couple of weeks and her lactate is unremarkable. She has blood cultures pending from yesterday so these were not repeated nor was her bio fire respiratory panel which was positive for parainfluenza yesterday but negative for Covid. She was treated here with nebs, steroids and Rocephin. She does appear to be retaining some CO2 with an acidosis albeit mild to moderate and the case was presented to Dr. Reynolds for admission at 2:09 PM. I reassessed her after that phone call to the hospitalist and she is looking more like she is retaining with decreased level of consciousness, called the hospitalist update and we will update the plan to go to the ICU and called the RT to put her on BiPAP. - Critical Care Time(min): 40 Time Includes: Direct patient care, Review records, Reassess patient, Document care, Coordinate care, Medical consult Data interpretation: Labs, Pulse ox, ABG Procedures excluded from critical care time: EKG Departure - Departure Disposition: 66 [facility] DC/Xfer Clinical Impression: Moderate COPD (chronic obstructive pulmonary disease), Respiratory failure, Parainfluenza virus infection Condition: Serious
--- NOTE | 2021-05-08 13:01 | XRAY Report ---
PROCEDURE: Chest 1 View X-Ray INDICATIONS: dyspnea TECHNIQUE: One view of the chest was acquired. COMPARISON: Chest radiograph 05/07/2021 FINDINGS: Surgical changes and devices: None. Lungs and pleura: No pleural effusions or pneumothorax. Diffuse pulmonary vascular congestion and in terstitial prominence is seen that appears similar when compared to the radiographs from the day prio r. Mediastinum: Mediastinal contours appear normal. Heart size is stable. Bones and chest wall: No suspicious bony lesions. Overlying soft tissues appear unremarkable. IMPRESSION: Diffuse pulmonary vascular congestion and interstitial prominence appears similar when compared to th e exam from the day prior. Reviewed by: Facundo Merritt MD on 05/08/2021 1:00 PM PST Approved by: Facundo Merritt MD on 05/08/2021 1:00 PM PST Station ID: [id number]
[2021-05-08 13:23] LABS: BASOPHILS # (AUTO) 0.1 10^3/uL (0.0-0.1); BASOPHILS % (AUTO) 0.3 %; EOSINOPHILS # (AUTO) 0.1 10^3/uL (0.0-0.7); EOSINOPHILS % (AUTO) 0.2 %; HCT - HEMATOCRIT 34.4 % (37.0-47.0); HGB - HEMOGLOBIN 10.7 g/dL (12.0-16.0); LYMPHOCYTES % (AUTO) 4.1 %; MEAN CORPUSCULAR HEMOGLOBIN 27.9 pg (27.0-31.0); MEAN CORPUSCULAR HGB CONC 31.1 g/dL (32.0-36.0); MEAN CORPUSCULAR VOLUME 89.8 fL (81.0-99.0); MEAN PLATELET VOLUME 10.4 fL (7.9-10.8); MONOCYTES # (AUTO) 1.5 10^3/uL (0.0-1.0); MONOCYTES % (AUTO) 6.1 %; NEUTROPHILS # (AUTO) 21.2 10^3/uL (1.5-6.6); NEUTROPHILS % (AUTO) 88.8 %; PLT - PLATELET COUNT 232 10^3/uL (130-450); RED BLOOD COUNT 3.83 10^6/uL (4.20-5.40); RED CELL DISTRIBUTION WIDTH 15.8 % (12.0-15.0); WHITE BLOOD COUNT 23.9 x10^3/uL (4.8-10.8)
[2021-05-08] MEDS ORDERED: MORPHINE 2 MG/ML CARPUJECT IVP STA (13:24)
[2021-05-08 13:26] LABS: VBG BASE EXCESS 0.6 mmol/L (-2 - +2); VBG HCO3 28.9 mmol/L (23-28); VBG OXYGEN SATURATION 78.7 % (60-80); VBG PCO2 65.9 mmHg (41-51); VBG PH 7.26 (7.31-7.41); VBG TOTAL CO2 30.9 mmol/L (24-29)
[2021-05-08 13:32] LABS: SLIDE REVIEW? Indicated
[2021-05-08 13:33] LABS: CALCIUM 9.1 mg/dL (8.5-10.3); CREATININE 1.3 mg/dL (0.4-1.0); POTASSIUM 4.8 mmol/L (3.5-5.0)
[2021-05-08 13:57] LABS: RBC MORPHOLOGY (MULTIPLE) 2+ ANISOCYTOSIS (NORMAL)
[2021-05-08] MEDS ORDERED: LEVALBUTEROL 1.25 MG/3 ML NEB INH STA (14:14)
[2021-05-08] MEDS ORDERED: ACETAMINOPHEN 325 MG TABLET PO PRN (14:24)
[2021-05-08] MEDS ORDERED: ONDANSETRON 4 MG/2 ML VIAL IVP PRN (14:24)
--- NOTE | 2021-05-08 14:49 | PHARMACY PROGRESS NOTE ---
- Best Possible Medication History Admit Date and Time: Patient in ED Processed by: Pharmacy Medication History completed: Yes Patient Interview: Pt unable to participate Secondary Source(s): Physician records, Pharmacy records, Insurance records As the person ultimately responsible for medication therapy, providers are able to order a medication from an existing home medication list in [facility] via the "Reconcile Routine" prior to Confirmation of that medication by manager product support. Such practice is discouraged except when the physician, in their clinical judgment, deems that a medical need exists for a medication without regard to previous use.
[2021-05-08 14:52] LABS: ALBUMIN 3.9 g/dL (3.2-5.5); BILIRUBIN,DIRECT 0.2 mg/dL (0.1-0.5); BILIRUBIN,TOTAL 0.7 mg/dL (0.2-1.0); MAGNESIUM 1.9 mg/dL (1.7-2.8); TOTAL PROTEIN 7.7 g/dL (6.7-8.2)
[2021-05-08] MEDS ORDERED: LEVALBUTEROL 1.25 MG/3 ML NEB INH ONE (15:04)
[2021-05-08 15:17] LABS: VBG BASE EXCESS -1.5 mmol/L (-2 - +2); VBG OXYGEN SATURATION 85.9 % (60-80); VBG PCO2 65.8 mmHg (41-51); VBG PH 7.231 (7.31-7.41); VBG PO2 54.3 mmHg (25-47)
[2021-05-08] MEDS ORDERED: methylPREDNISolone SUCCINATE 125 MG/2 ML VIAL IVP SCH (16:00)
--- NOTE | 2021-05-08 18:33 | HISTORY & PHYSICAL EXAMINATION ---
Chief Complaint - Chief Complaint Chief Complaint: SOB History of Present Illness - Admitted From Admitted From:: ED - History Obtained From History obtained from: ED provider and EMR - History of Present Illness HPI Comment/Other: This is a 60-year-old white female with morbid obesity (BMI 69), sleep apnea, diabetes mellitus on Metformin, chronic leg wounds, hypothyroidism on replacement, chronic pain syndrome on methadone and with "history of CHF" on Lasix (her last Echo here was 4 years ago showing diastolic heart failure). Patient was seen in the ED yesterday for shortness of breath, fever and URI but mostly her complaints were of worsened chronic pain due to a missed methadone dose. She tested positive for parainfluenza yesterday and had a WBC of 17, but had stable chest x-ray and was discharged home to take doxycycline. She got more short of breath today and presented to the ED this morning, saturations were 85% on room air, fever of 38.1 C and VBG shows pH of 7.26, PCO2 65. She required 15 L of suppl. oxygen and then was put on BiPAP and is being admitted to the ICU. She did report a cough with yellow sputum production. History - Past Medical History Cardiovascular: reports: Hypertension, Peripheral Vascular Disease Respiratory: reports: Asthma, Shortness of breath, Sleep apnea Neuro: reports: Migraines, Peripheral neuropathy Endocrine/Autoimmune: reports: Type 2 diabetes, HyPOthyroidism GI: reports: Hepatitis : reports: Incontinence, Nocturia, Frequency HEENT: reports: Chronic vision loss Psych: reports: Anxiety, Post traumatic stress disorder Musculoskeletal: reports: Osteoarthritis, Fibromyalgia, Chronic back pain Derm: reports: Other drug resistant infections, Herpes zoster MRSA Hx?: Yes - Past Surgical History Cardiovascular: reports: Other - Family & Social History Family History: Mother: (patient is adopted), Father: , Brother: Alive and Well (has MS) Living arrangement: At home Living Situation: With family - Substance History Use: Uses substance without health or social issues: Tobacco (hx), Alcohol - POLST Patient has POLST: No Meds/Allgy - Home Medications Home Medications: Ambulatory Orders Medication Instructions Recorded Confirmed Levothyroxine [Synthroid] 125 mcg PO QDAC 10/07/13 05/08/21 Lisinopril 20 mg PO DAILY 02/12/15 05/08/21 Methadone HCl 10 mg PO BID 02/12/15 05/08/21 Meloxicam 15 mg PO DAILY 08/04/16 05/08/21 Potassium Chloride [Klor-Con 10] 10 meq PO DAILY 09/09/18 05/08/21 Sertraline HCl 150 mg PO HS 09/09/18 05/08/21 Metformin HCl [Metformin ER 500 mg PO BID 03/30/20 05/08/21 Gastric] Oxycodone HCl/Acetaminophen 1 each PO Q4H PRN 05/29/20 05/08/21 [Percocet 10-325 mg Tablet] Pregabalin [Lyrica] 50 mg PO BID 05/29/20 05/08/21 Cholecalciferol [Vitamin D3] 5,000 units PO DAILY 09/07/20 05/08/21 Vitamin B Complex/Folic Acid 1 tab PO DAILY 09/07/20 05/08/21 [B-Complex Tablet] hydrOXYzine HCL [Hydroxyzine HCl] 50 mg PO QID PRN 09/07/20 05/08/21 Albuterol Sulf [Ventolin Hfa 1 - 2 puffs INH Q4HR PRN #1 inhaler 04/26/21 05/08/21 Inhaler] Atorvastatin Calcium 40 mg PO QPM 05/08/21 05/08/21 Furosemide [Lasix] 60 mg PO DAILY 05/08/21 05/08/21 Liothyronine [Cytomel] 25 mcg PO QDAC 05/08/21 05/08/21 - Allergies Allergies/Adverse Reactions: Allergies Allergy/AdvReac Type Severity Reaction Status Date / Time Penicillins Allergy Rash Verified 05/07/21 15:52 Sulfa (Sulfonamide Allergy Rash Verified 05/07/21 15:52 Antibiotics) Review of Systems - Musculoskeletal Musculoskeletal: reports: Back pain - Integumentary Integumentary: reports: Other (Bilateral lower legs have non-healing wounds) - All Other Systems All Other Systems: reports: Other (She is somnolent and unable to communicate while on a BIPAP, thus no other information was gleaned.) Exam - Vital Signs Reviewed Vital Signs: Yes Vital Signs: Vital Signs x48h Temp Pulse Pulse Resp BP BP Pulse Ox 05/08/21 17:11 96 05/08/21 17:00 36.3 C L 82 16 115/53 L 98 05/08/21 16:00 37.5 C 89 16 117/58 L 99 05/08/21 15:00 90 14 05/08/21 14:28 104 H 05/08/21 14:18 37.4 C 108 H 15 137/59 H 98 05/08/21 13:10 112 H 28 H 05/08/21 12:57 38.1 C H 05/08/21 12:19 109 H 25 H 95 05/08/21 12:05 111 H 28 H 182/79 H 97 - Physical Exam General Appearance: positive: No acute distress, Other (She is asleep, supine, wearing a BIPAP mask, in the ICU) Neck: positive: Other (Obese) Respiratory: positive: Breath sounds nml (anteriorly, very distant breath sounds due to her large size) Abdomen: positive: Other (Obese with a pannus) Skin: positive: Warm, Dry Extremities: positive: Other (2+ edema to knees, both shins are wrapped) Neurologic/Psychiatric: positive: Other (Asleep currently, in ED she had a non- focal exam) Conclusion/Plan - Problem List (1) Acute respiratory failure with hypoxia Conclusion/Plan: This is likely from a COPD exacerbation, but cannot R/O CHF plus having sleep apnea. Will continue with supplemental oxygen, in the ICU, on BiPAP. We will treat the underlying cause, her COPD exacerbation. We will evaluate if this is also CHF, will obtain an Echo (with Definity). (2) Parainfluenza virus infection Conclusion/Plan: As per labs done yesterday when she came to ED. Will order droplet isolation (3) COPD exacerbation Conclusion/Plan: Will start IV steroids, nebulizers, inhaled steroids, Mucinex, montelukast and empiric Zithromax for bronchitis. Give supplemental oxygen as described above. (4) CO2 retention Conclusion/Plan: Her serum electrolytes show that she is not a chronic CO2 retainer, since she has a normal serum bicarb. For this reason, she required BiPAP for ventilation and is in the ICU. Follow ABG. We will wean down the BiPAP and supplemental O2 when possible, sats can be >88%. (5) Chronic diastolic heart failure Conclusion/Plan: We will restart her Lasix tomorrow, not today given the MILLIE. We will obtain an Echo (with Definity) to reevaluate her systolic function since last Echo here was done 4 years ago. (6) MILLIE (acute kidney injury) Conclusion/Plan: Will hold the Lasix and FRANTZ inhibitor for a day then resume the Lasix. Will avoid nephrotoxins. Follow BMP daily (7) Morbid obesity with BMI of 60.0-69.9, adult Conclusion/Plan: As per Hx (8) Diabetes mellitus Conclusion/Plan: She was on Metformin at home, no insulin. We will check her A1c. Will hold the Metformin while here, due to her elevated creatinine, and in case she needs imaging using dye. We will order a carb controlled diet, hypoglycemia protocol, fingerstick checks and ss insulin coverage (9) Hypothyroidism Conclusion/Plan: We will check a TSH to assure she is on proper thyroid replacement dose. When her medications are reconciled we will resume the thyroid tablet (10) Open wound, lower leg Conclusion/Plan: In the EMR, her last wound culture was just 1 month ago and it grew staph aureus. She has had multiple wound culture results the past year, growing various organisms prior to the recent result growing only staph aureus. Will determine if she is on any antibiotics currently and also continue her wound dressing management as she does at home. (11) Chronic pain syndrome Conclusion/Plan: Will continue with her pain medications and management, when her medication list is reconciled. - Lab Results Fish Bones: 05/09/21 04:25 05/09/21 06:46 - Diagnostic Imaging Results Diagnostic Imaging Results: positive: Final report reviewed - Other Other Results/Comments: Attestation: The patient is expected to be discharged or transferred to another facility within 96 hours: Yes.
[2021-05-08] MEDS: SODIUM CHLORIDE FLUSH 0.9% 10 ML SYRINGE IVP SCH (18:35)
[2021-05-08] MEDS: INSULIN ASPART 300 UNIT/3 ML PEN SUBQ SCH ×2 (18:35→22:07)
[2021-05-08] MEDS: AZITHROMYCIN INJ 500 MG in SODIUM CHLORIDE 0.9% 250 ML IV SCH (18:39)
[2021-05-08] MEDS: NYSTATIN POWDER 15 GM TOP SCH (21:59)
[2021-05-08] MEDS: MONTELUKAST 10 MG TABLET PO SCH (22:01)
[2021-05-08] MEDS: FAMOTIDINE 20 MG TABLET PO SCH (22:02)
[2021-05-08] MEDS: PREGABALIN 25 MG CAPSULE PO SCH (22:02)
[2021-05-08] MEDS: SERTRALINE 50 MG TABLET PO SCH (22:02)
[2021-05-08] MEDS: ATORVASTATIN 40 MG TABLET PO SCH (22:03)
[2021-05-08] MEDS: METHADONE 5 MG TABLET PO SCH (22:03)
[2021-05-08] MEDS: guaiFENesin 600 MG TABLET PO SCH (22:03)
[2021-05-08] MEDS: methylPREDNISolone SUCCINATE 125 MG/2 ML VIAL IVP SCH (22:05)
[2021-05-09] MEDS: BUDESONIDE 0.5 MG/2 ML NEB INH SCH ×3 (01:28→19:54)
[2021-05-09] MEDS: SODIUM CHLORIDE FLUSH 0.9% 10 ML SYRINGE IVP SCH ×4 (04:41→21:06)
[2021-05-09 04:50] LABS: BASOPHILS % (AUTO) 0.2 %; HCT - HEMATOCRIT 31.5 % (37.0-47.0); HGB - HEMOGLOBIN 9.3 g/dL (12.0-16.0); LYMPHOCYTES % (AUTO) 5.6 %; MEAN CORPUSCULAR HEMOGLOBIN 26.8 pg (27.0-31.0); MEAN CORPUSCULAR HGB CONC 29.5 g/dL (32.0-36.0); MEAN CORPUSCULAR VOLUME 90.8 fL (81.0-99.0); MONOCYTES # (AUTO) 0.4 10^3/uL (0.0-1.0); MONOCYTES % (AUTO) 2.5 %; NEUTROPHILS # (AUTO) 16.3 10^3/uL (1.5-6.6); NEUTROPHILS % (AUTO) 91.3 %; PLT - PLATELET COUNT 197 10^3/uL (130-450); RED BLOOD COUNT 3.47 10^6/uL (4.20-5.40); RED CELL DISTRIBUTION WIDTH 15.7 % (12.0-15.0); WHITE BLOOD COUNT 17.8 x10^3/uL (4.8-10.8)
[2021-05-09 04:59] LABS: CALCIUM 8.6 mg/dL (8.5-10.3); CREATININE 1.8 mg/dL (0.4-1.0); MAGNESIUM 2.4 mg/dL (1.7-2.8); PHOSPHORUS 3.9 mg/dL (2.5-4.6); POTASSIUM 5.8 mmol/L (3.5-5.0)
[2021-05-09 05:00] LABS: CALCIUM, IONIZED 1.1 mmol/L (1.15-1.33); VBG PH 7.313 (7.31-7.41)
[2021-05-09 05:06] LABS: ABG HCO3 29.2 mmol/L (22.0-26.0); ABG PH 7.27 (7.35-7.45); ABG PO2 84 mmHg (80-100); ABG TCO2 31.2 MMOL/L (21.0-29.0)
[2021-05-09 05:07] LABS: ABG BASE EXCESS 1.2 mmol/L (-2.0-3.0); ABG OXYGEN SATURATION 95 % (94-98)
[2021-05-09 05:13] LABS: ABG PCO2 66 mmHg (34-45); ABG RESPIRATORY RATE 10 b/min; ALLEN TEST POSITIVE
[2021-05-09] MEDS: LEVOTHYROXINE 125 MCG TABLET PO SCH (06:11)
[2021-05-09] MEDS: LIOTHYRONINE 25 MCG TABLET PO SCH (06:11)
[2021-05-09] MEDS: ALBUTEROL NEB 2.5 MG/3 ML INH PRN ×2 (06:13→19:54)
[2021-05-09] MEDS: methylPREDNISolone SUCCINATE 125 MG/2 ML VIAL IVP SCH ×3 (06:13→21:06)
[2021-05-09] MEDS: INSULIN ASPART 300 UNIT/3 ML PEN SUBQ SCH ×4 (08:49→20:59)
[2021-05-09] MEDS: POTASSIUM CHLORIDE 10 MEQ CAPSULE PO SCH (08:50)
[2021-05-09] MEDS: FAMOTIDINE 20 MG TABLET PO SCH ×2 (08:50→20:54)
[2021-05-09] MEDS: CHOLECALCIFEROL 5,000 UNIT CAPSULE PO SCH (08:50)
[2021-05-09] MEDS: ENOXAPARIN 100 MG/ML SYRINGE SUBQ SCH (08:50)
[2021-05-09] MEDS: guaiFENesin 600 MG TABLET PO SCH ×2 (08:51→20:54)
[2021-05-09] MEDS: FUROSEMIDE 40 MG TABLET PO SCH (08:51)
[2021-05-09] MEDS: METHADONE 5 MG TABLET PO SCH ×2 (08:51→20:55)
[2021-05-09] MEDS: NYSTATIN POWDER 15 GM TOP SCH ×2 (08:52→20:55)
[2021-05-09] MEDS: PREGABALIN 25 MG CAPSULE PO SCH ×2 (08:52→20:57)
[2021-05-09] MEDS ORDERED: VITAMIN B COMPLEX PO SCH (09:00)
[2021-05-09] MEDS ORDERED: FOLIC ACID PO SCH (09:00)
--- NOTE | 2021-05-09 09:07 | XRAY Report ---
PROCEDURE: Chest 1 View X-Ray INDICATIONS: Short of breath, CO2 retention, COPD TECHNIQUE: One view of the chest was acquired. COMPARISON: 05/08/2021, 05/07/2021, 04/26/2021 FINDINGS: Surgical changes and devices: None. Lungs and pleura: No pleural effusions or pneumothorax. Generalized interstitial prominence is seen, which is slightly improved compared to the prior examination. On the semiupright images, no large pn eumothorax or large pleural effusions can be seen. No focal infiltrates are seen. Mediastinum: Mediastinal contours appear normal. Heart size is normal. Bones and chest wall: No suspicious bony lesions. Overlying soft tissues appear unremarkable. IMPRESSION: Improving generalized interstitial prominence. Reviewed by: Ady Tran MD on 05/09/2021 8:05 AM [facility] Approved by: Ady Tran MD on 05/09/2021 8:05 AM [facility] Station ID: [id number]
[2021-05-09] MEDS: polyethylene glycoL 3350 17 GM PACKET PO SCH (12:12)
[2021-05-09 12:59] LABS: ESTIMATED AVERAGE GLUCOSE 140 mg/dL (70-100); HEMOGLOBIN A1c% 6.5 % (4.27-6.07)
[2021-05-09] MEDS: oxyCODONE 5 MG TABLET PO PRN (15:14)
--- NOTE | 2021-05-09 16:45 | PROVIDER PROGRESS NOTE ---
Assessment/Plan - Problem List (1) Acute respiratory failure with hypoxia Assessment/Plan: The patient is on nasal cannula today, was on BiPAP with supplemental oxygen overnight. Etiology is a COPD exacerbation probably related to the parainfluenza infection. But we are also evaluating for volume overload. We will continue with supplemental oxygen, sats of 88-92 are acceptable, in order to not promote CO2 retention from excessive available oxygen (2) Parainfluenza virus infection Assessment/Plan: As per lab results Droplet precautions are ordered. (3) COPD exacerbation Assessment/Plan: The daughter Maryanne was on the phone during my visit with the patient in the room. Maryanne said the patient has definitely been diagnosed with COPD which the patient did not remember. The patient does confirm that she uses inhalers. We will continue with IV steroids, Zithromax, nebs and Mucinex. Wean supplemental O2 down, keeping sats 88-92% (4) Chronic diastolic heart failure Assessment/Plan: An Echo with Definity has been ordered to confirm if she has systolic or diastolic heart failure. The patient was able to recall that she has had Echoes done in 2 other locations that show normal systolic function. She states she is on her Lasix only for her chronic leg edema. The Echo will also tell us if she may have cor pulmonale from lung disease or from obesity, which may give her chronic leg edema (5) MILLIE (acute kidney injury) Assessment/Plan: The BUN/creatinine have worsened today. The Echo may help us determine if she has volume overload or if she is prerenal as the cause of this MILLIE. Avoid nephrotoxins, the FRANTZ inhibitor and her Metformin have not been resumed. Follow BMP daily (6) Morbid obesity with BMI of 60.0-69.9, adult Assessment/Plan: As per Hx (7) Diabetes mellitus Assessment/Plan: Her A1c is very good at 6.5. Metformin is on hold because of elevated creatinine She is off the BiPAP and able to take a full diet therefore has been started on a carb controlled diet and sliding scale coverage insulin. (8) Hypothyroidism Assessment/Plan: Robert TSH is in a normal range, at 0.89 We are continuing her home thyroid dose. (9) Open wound, lower leg Assessment/Plan: She is able to give details today and states that she is not on chronic antibiotics, only gets these when she "absolutely needs them". She reports having a home health nurse come to her home during the week to change the bandages. Currently only the left coates is bandaged. (10) Chronic pain syndrome Assessment/Plan: We are continuing her usual pain management medications (11) CO2 retention Assessment/Plan: Resolved after wearing BiPAP overnight. The daughter Maryanne is on the phone while I am in the room with her and reports that the patient has had witnessed sleep apnea but has never had a sleep study and does not use a CPAP machine. Also her COPD may give her chronic CO2 retention. She will remain in the ICU today in case she needs return to BiPAP - Current Meds Current Meds: Current Medications Generic Name Dose Route Start Last Admin Trade Name Freq PRN Reason Stop Dose Admin Albuterol 2.5 mg 05/08/21 14:24 05/09/21 06:13 Albuterol Neb 2.5 Mg/3 Ml INH 2.5 mg Q4HR PRN Administration Wheezing Atorvastatin Calcium 40 mg 05/08/21 21:00 05/08/21 22:03 Atorvastatin 40 Mg Tablet PO 40 mg QPM NATHAN Administration Budesonide 0.5 mg 05/08/21 19:00 05/09/21 06:13 Budesonide 0.5 Mg/2 Ml Neb INH 0.5 mg RTBID NATHAN Administration Cholecalciferol 5,000 unit 05/09/21 09:00 05/09/21 08:50 Cholecalciferol 5,000 Unit Capsule PO 5,000 unit DAILY NATHAN Administration Enoxaparin Sodium 100 mg 05/09/21 09:00 05/09/21 08:50 Enoxaparin 100 Mg/Ml Syringe SUBQ 100 mg DAILY NATHAN Administration Famotidine 20 mg 05/08/21 21:00 05/09/21 08:50 Famotidine 20 Mg Tablet PO 20 mg BID NATHAN Administration Furosemide 60 mg 05/09/21 09:00 05/09/21 08:51 Furosemide 40 Mg Tablet PO 60 mg DAILY NATHAN Administration Guaifenesin 600 mg 05/08/21 21:00 05/09/21 08:51 Guaifenesin 600 Mg Tablet PO 600 mg BID NATHAN Administration Azithromycin 500 mg/ Sodium 250 mls @ 250 mls/hr 05/08/21 17:30 05/08/21 20:00 Chloride IV 05/10/21 18:29 Infused 1730 NATHAN Infusion Insulin Aspart 1 - 9 unit 05/09/21 08:00 05/09/21 12:12 Insulin Aspart 300 Unit/3 Ml Pen SUBQ 5 unit 0800,1200,1700,2100 NATHAN Administration Protocol Levothyroxine Sodium 125 mcg 05/09/21 07:00 05/09/21 06:11 Levothyroxine 125 Mcg Tablet PO 125 mcg QDAC NATHAN Administration Liothyronine Sodium 25 mcg 05/09/21 07:00 05/09/21 06:11 Liothyronine 25 Mcg Tablet PO 25 mcg QDAC NATHAN Administration Methadone HCl 10 mg 05/08/21 21:00 05/09/21 08:51 Methadone 5 Mg Tablet PO 10 mg BID NATHAN Administration Methylprednisolone Sodium Succinate 80 mg 05/08/21 22:00 05/09/21 15:13 Methylprednisolone Succinate 125 Mg/2 Ml Vial IVP 80 mg Q8HR NATHAN Administration Montelukast Sodium 10 mg 05/08/21 21:00 05/08/21 22:01 Montelukast 10 Mg Tablet PO 10 mg QPM NATHAN Administration Nystatin 1 applic 05/08/21 21:00 05/09/21 08:52 Nystatin Powder 15 Gm TOP 1 applic BID NATHAN Administration Oxycodone HCl 10 mg 05/08/21 15:19 05/09/21 15:14 Oxycodone 5 Mg Tablet PO 10 mg Q4H PRN Administration PAIN Polyethylene Glycol 17 gm 05/09/21 12:00 05/09/21 12:12 Polyethylene Glycol 3350 17 Gm Packet PO Not Given DAILY NATHAN Potassium Chloride 10 meq 05/09/21 08:00 05/09/21 08:50 Potassium Chloride 10 Meq Capsule PO Not Given DAILYWM NATHAN Pregabalin 50 mg 05/08/21 21:00 05/09/21 08:52 Pregabalin 25 Mg Capsule PO 50 mg BID NATHAN Administration Sertraline HCl 150 mg 05/08/21 21:00 05/08/21 22:02 Sertraline 50 Mg Tablet PO 150 mg HS NATHAN Administration Sodium Chloride 10 ml 05/08/21 17:00 05/09/21 08:52 Sodium Chloride Flush 0.9% 10 Ml Syringe IVP 10 ml 0100,0900,1700 NATHAN Administration - Lab Result Fish Bone Diagrams: 05/09/21 04:25 05/09/21 06:46 - Additional Planning My Orders: My Active Orders 05/08/21 17:00 Sodium Chloride Flush 0.9% [Normal Saline Flush 0.9%] 10 ml IVP 0100,0900,1700 05/08/21 17:30 Azithromycin Inj [Zithromax Inj] 500 mg Sodium Chloride 0.9% [Normal Saline 0.9%] 250 ml IV 1730 05/08/21 19:00 Budesonide [Pulmicort] 0.5 mg INH RTBID 05/08/21 21:00 Atorvastatin [Lipitor] 40 mg PO QPM Famotidine [Pepcid] 20 mg PO BID Methadone [Methadone Hcl] 10 mg PO BID Montelukast [Singulair] 10 mg PO QPM Nystatin [Nystop] 1 applic TOP BID Pregabalin [Lyrica] 50 mg PO BID Sertraline [Zoloft] 150 mg PO HS guaiFENesin [Mucinex] 600 mg PO BID 05/08/21 22:00 methylPREDNISolone SUCCINATE [SOLU-Medrol (125MG VIAL)] 80 mg IVP Q8HR 05/09/21 Evaluate and Treat PT [PT] Routine 05/09/21 07:00 Levothyroxine [Synthroid] 125 mcg PO QDAC Liothyronine [Cytomel] 25 mcg PO QDAC 05/09/21 07:51 hydrOXYzine PAMOATE [VistariL] 50 mg PO QID PRN 05/09/21 08:00 Echo Transthoracic w/Definity [ECHO] Routine Insulin Aspart [NovoLOG] 1 - 9 unit SUBQ 0800,1200,1700,2100 Potassium Chloride [Micro-K] 10 meq PO DAILYWM 05/09/21 09:00 Cholecalciferol [Vitamin D3] 5,000 unit PO DAILY Enoxaparin [Lovenox] 100 mg SUBQ DAILY Furosemide [Lasix] 60 mg PO DAILY 05/09/21 Lunch Carb-controlled Diet [DIET] 05/09/21 12:00 polyethylene glycoL 3350 [Miralax] 17 gm PO DAILY 05/10/21 05:00 BMP - BASIC METABOLIC PANEL [CHEM] DAILYLAB CALCIUM, IONIZED ([facility]) [BG] DAILYLAB CBC - COMP BLD CT W/AUTO DIFF [HEME] DAILYLAB 05/11/21 05:00 BMP - BASIC METABOLIC PANEL [CHEM] DAILYLAB CALCIUM, IONIZED ([facility]) [BG] DAILYLAB CBC - COMP BLD CT W/AUTO DIFF [HEME] DAILYLAB 05/12/21 05:00 BMP - BASIC METABOLIC PANEL [CHEM] DAILYLAB CBC - COMP BLD CT W/AUTO DIFF [HEME] DAILYLAB Subjective - Subjective Patient Reports: Feeling Better, Resting Comfortably (She is sitting in a recliner chair, legs are elevated) Objective Vital Signs: Vital Signs - 24 hr 05/08/21 05/08/21 05/08/21 17:00 17:11 18:00 Temperature 36.3 C L Heart Rate 96 Heart Rate [ Activity] Heart Rate [ 82 78 Monitoring electrodes] Respiratory 16 17 Rate Blood Pressure [Activity] Blood Pressure 115/53 L 143/59 H [Right Brachial artery] O2 Saturation 98 99 05/08/21 05/08/21 05/08/21 19:00 19:54 20:00 Temperature 37.4 C Heart Rate 104 H Heart Rate [ Activity] Heart Rate [ 82 93 Monitoring electrodes] Respiratory 17 18 Rate Blood Pressure [Activity] Blood Pressure 128/58 L 120/106 H [Right Brachial artery] O2 Saturation 98 98 05/08/21 05/08/21 05/08/21 21:00 22:00 23:00 Temperature 36 C L Heart Rate 104 H Heart Rate [ Activity] Heart Rate [ 76 93 87 Monitoring electrodes] Respiratory 17 20 18 Rate Blood Pressure [Activity] Blood Pressure 92/40 L 98/67 132/48 H [Right Brachial artery] O2 Saturation 95 94 94 05/09/21 05/09/21 05/09/21 00:00 01:00 01:06 Temperature Heart Rate Heart Rate [ Activity] Heart Rate [ 83 83 Monitoring electrodes] Respiratory 17 18 22 Rate Blood Pressure [Activity] Blood Pressure 112/43 L 116/55 L [Right Brachial artery] O2 Saturation 95 98 93 05/09/21 05/09/21 05/09/21 02:00 02:30 03:00 Temperature Heart Rate 104 H Heart Rate [ Activity] Heart Rate [ 79 76 Monitoring electrodes] Respiratory 21 20 Rate Blood Pressure [Activity] Blood Pressure 104/52 L 106/45 L [Right Brachial artery] O2 Saturation 97 95 05/09/21 05/09/21 05/09/21 04:00 05:00 06:00 Temperature 36.6 C Heart Rate Heart Rate [ Activity] Heart Rate [ 102 H 92 76 Monitoring electrodes] Respiratory 21 16 16 Rate Blood Pressure [Activity] Blood Pressure 102/45 L 147/59 H 106/53 L [Right Brachial artery] O2 Saturation 93 97 96 05/09/21 05/09/21 05/09/21 06:29 07:00 08:00 Temperature 36.8 C Heart Rate 93 Heart Rate [ Activity] Heart Rate [ 80 88 Monitoring electrodes] Respiratory 18 24 22 Rate Blood Pressure [Activity] Blood Pressure 106/51 L 128/59 L [Right Brachial artery] O2 Saturation 97 97 05/09/21 05/09/21 05/09/21 08:38 09:00 10:00 Temperature Heart Rate 87 Heart Rate [ Activity] Heart Rate [ 90 75 Monitoring electrodes] Respiratory 18 17 Rate Blood Pressure [Activity] Blood Pressure 142/102 H 107/51 L [Right Brachial artery] O2 Saturation 97 94 05/09/21 05/09/21 05/09/21 11:00 12:00 13:00 Temperature 37.2 C Heart Rate Heart Rate [ Activity] Heart Rate [ 89 92 110 H Monitoring electrodes] Respiratory 20 22 26 H Rate Blood Pressure [Activity] Blood Pressure 151/72 H 141/59 H 152/92 H [Right Brachial artery] O2 Saturation 93 92 90 L 05/09/21 05/09/21 05/09/21 13:20 14:00 15:00 Temperature Heart Rate Heart Rate [ 108 H Activity] Heart Rate [ 89 87 Monitoring electrodes] Respiratory 22 19 Rate Blood Pressure 155/81 H [Activity] Blood Pressure 152/69 H 137/60 H [Right Brachial artery] O2 Saturation 90 L 93 05/09/21 16:00 Temperature 36.8 C Heart Rate Heart Rate [ Activity] Heart Rate [ 88 Monitoring electrodes] Respiratory 20 Rate Blood Pressure [Activity] Blood Pressure [Right Brachial artery] O2 Saturation 92 Oxygen O2 Source Nasal cannula Oxygen Flow Rate 5 I&O (Last 24 Hrs): Intake and Output Totals x24h 05/07/21 05/08/21 05/09/21 23:59 23:59 23:59 Intake Total 350 1820 Output Total 0 2000 Balance 350 -180 General: Alert, Oriented x3, Other (Morbidley obese) HEENT: Mucous membr. moist/pink Neck: Supple Neuro: Alert, Non Focal Cardiovascular: Regular rate Respiratory: No respiratory distress (Wearing O2 by nasal cannula) Abdomen: Soft, Other (Obese with pannus) Extremities: Other (Trace pretibial edema, the left coates is bandaged, the right has venous stasis changes) - Results Results: Laboratory Results WBC 17.8 x10^3/uL (4.8-10.8) H 05/09/21 04:25 RBC 3.47 10^6/uL (4.20-5.40) L 05/09/21 04:25 Hgb 9.3 g/dL (12.0-16.0) L 05/09/21 04:25 Hct 31.5 % (37.0-47.0) L 05/09/21 04:25 MCV 90.8 fL (81.0-99.0) 05/09/21 04:25 MCH 26.8 pg (27.0-31.0) L 05/09/21 04:25 MCHC 29.5 g/dL (32.0-36.0) L 05/09/21 04:25 RDW 15.7 % (12.0-15.0) H 05/09/21 04:25 Plt Count 197 10^3/uL (130-450) 05/09/21 04:25 MPV 11.0 fL (7.9-10.8) H 05/09/21 04:25 Neut # (Auto) 16.3 10^3/uL (1.5-6.6) H 05/09/21 04:25 Lymph # (Auto) 1.0 10^3/uL (1.5-3.5) L 05/09/21 04:25 Charlton # (Auto) 0.4 10^3/uL (0.0-1.0) 05/09/21 04:25 Eos # (Auto) 0.0 10^3/uL (0.0-0.7) 05/09/21 04:25 Baso # (Auto) 0.0 10^3/uL (0.0-0.1) 05/09/21 04:25 Absolute Nucleated RBC 0.00 x10^3/uL 05/09/21 04:25 Nucleated RBC % 0.0 /100WBC 05/09/21 04:25 Manual Slide Review Indicated 05/08/21 13:15 RBC Morph Micro Appear 2+ ANISOCYTOSIS (NORMAL) 05/08/21 13:15 Bld Gas Analysis Time 0504 05/09/21 04:56 Sample Site RIGHT RADIAL 05/09/21 04:56 ABG pH 7.27 (7.35-7.45) L 05/09/21 04:56 ABG pCO2 66 mmHg (34-45) H* 05/09/21 04:56 ABG pO2 84 mmHg (80-100) 05/09/21 04:56 ABG HCO3 29.2 mmol/L (22.0-26.0) H 05/09/21 04:56 ABG Total CO2 31.2 MMOL/L (21.0-29.0) H 05/09/21 04:56 ABG O2 Saturation 95 % (94-98) 05/09/21 04:56 ABG Base Excess 1.2 mmol/L (-2.0-3.0) 05/09/21 04:56 Brent Test POSITIVE 05/09/21 04:56 VBG pH 7.313 (7.31-7.41) 05/09/21 04:25 VBG pCO2 65.8 mmHg (41-51) H 05/08/21 15:10 VBG pO2 54.3 mmHg (25-47) H 05/08/21 15:10 VBG HCO3 27.0 mmol/L (23-28) 05/08/21 15:10 VBG Total CO2 29.0 mmol/L (24-29) 05/08/21 15:10 VBG O2 Saturation 85.9 % (60-80) H 05/08/21 15:10 VBG Base Excess -1.5 mmol/L (-2 - +2) 05/08/21 15:10 Ionized Calcium 1.10 mmol/L (1.15-1.33) L 05/09/21 04:25 Respiration Rate 10 b/min 05/09/21 04:56 O2 Delivery Device BiPAP 05/09/21 04:56 FiO2 40.00 05/09/21 04:56 EPAP 8 cmH2O 05/09/21 04:56 IPAP 16 cmH2O 05/09/21 04:56 Sodium 135 mmol/L (135-145) 05/09/21 04:25 Potassium 5.5 mmol/L (3.5-5.0) H 05/09/21 06:46 Chloride 99 mmol/L (101-111) L 05/09/21 04:25 Carbon Dioxide 25 mmol/L (21-32) 05/09/21 04:25 Anion Gap 11.0 (6-13) 05/09/21 04:25 BUN 51 mg/dL (6-20) H 05/09/21 04:25 Creatinine 1.8 mg/dL (0.4-1.0) H 05/09/21 04:25 Estimated GFR (MDRD) 29 (>89) L 05/09/21 04:25 Glucose 208 mg/dL (70-100) H 05/09/21 04:25 Estimat Average Glucose 140 mg/dL (70-100) H 05/09/21 04:25 Hemoglobin A1c % 6.5 % (4.27-6.07) H 05/09/21 04:25 Lactic Acid 0.8 mmol/L (0.5-2.2) 05/08/21 13:15 Calcium 8.6 mg/dL (8.5-10.3) 05/09/21 04:25 Phosphorus 3.9 mg/dL (2.5-4.6) 05/09/21 04:25 Magnesium 2.4 mg/dL (1.7-2.8) 05/09/21 04:25 Total Bilirubin 0.7 mg/dL (0.2-1.0) 05/08/21 13:15 Direct Bilirubin 0.2 mg/dL (0.1-0.5) 05/08/21 13:15 AST 19 IU/L (10-42) 05/08/21 13:15 ALT 20 IU/L (10-60) 05/08/21 13:15 Alkaline Phosphatase 72 IU/L (42-121) 05/08/21 13:15 Troponin I High Sens 27.2 ng/L (2.3-14.8) H* 05/08/21 15:10 B-Natriuretic Peptide 106 pg/mL (5-100) H 05/08/21 13:15 Total Protein 7.7 g/dL (6.7-8.2) 05/08/21 13:15 Albumin 3.9 g/dL (3.2-5.5) 05/08/21 13:15 Globulin 3.8 g/dL (2.1-4.2) 05/08/21 13:15 TSH 0.84 uIU/mL (0.34-5.60) 05/09/21 06:46 Nasal Screen MRSA (PCR) NEGATIVE (NEGATIVE) 05/08/21 16:50
[2021-05-09] MEDS ORDERED: PERFLUTREN LIPID MICROSPHERES 1.65 MG/1.5 ML VIAL IVP ONE (17:04)
[2021-05-09] MEDS: AZITHROMYCIN INJ 500 MG in SODIUM CHLORIDE 0.9% 250 ML IV SCH (17:28)
[2021-05-09] MEDS: ATORVASTATIN 40 MG TABLET PO SCH (20:54)
[2021-05-09] MEDS: MONTELUKAST 10 MG TABLET PO SCH (20:55)
[2021-05-09] MEDS: SERTRALINE 50 MG TABLET PO SCH (20:56)
[2021-05-10] MEDS: oxyCODONE 5 MG TABLET PO PRN ×3 (02:27→20:56)
[2021-05-10 03:44] LABS: CALCIUM, IONIZED 1.19 mmol/L (1.15-1.33); VBG PH 7.248 (7.31-7.41)
[2021-05-10 03:45] LABS: CALCIUM 8.6 mg/dL (8.5-10.3); CREATININE 1.2 mg/dL (0.4-1.0); POTASSIUM 5.2 mmol/L (3.5-5.0)
[2021-05-10 03:46] LABS: BASOPHILS % (AUTO) 0.1 %; HCT - HEMATOCRIT 32.3 % (37.0-47.0); HGB - HEMOGLOBIN 9.6 g/dL (12.0-16.0); LYMPHOCYTES # (AUTO) 0.9 10^3/uL (1.5-3.5); MEAN CORPUSCULAR HGB CONC 29.7 g/dL (32.0-36.0); MEAN PLATELET VOLUME 10.7 fL (7.9-10.8); MONOCYTES # (AUTO) 0.4 10^3/uL (0.0-1.0); MONOCYTES % (AUTO) 2.9 %; NEUTROPHILS # (AUTO) 13.3 10^3/uL (1.5-6.6); NEUTROPHILS % (AUTO) 90.5 %; PLT - PLATELET COUNT 252 10^3/uL (130-450); RED BLOOD COUNT 3.55 10^6/uL (4.20-5.40); RED CELL DISTRIBUTION WIDTH 15.2 % (12.0-15.0); WHITE BLOOD COUNT 14.8 x10^3/uL (4.8-10.8)
[2021-05-10 03:49] LABS: MAGNESIUM 2.3 mg/dL (1.7-2.8)
[2021-05-10] MEDS: methylPREDNISolone SUCCINATE 125 MG/2 ML VIAL IVP SCH ×3 (06:17→21:57)
[2021-05-10] MEDS: SODIUM CHLORIDE FLUSH 0.9% 10 ML SYRINGE IVP PRN (06:18)
[2021-05-10] MEDS: LIOTHYRONINE 25 MCG TABLET PO SCH (06:18)
[2021-05-10] MEDS: LEVOTHYROXINE 125 MCG TABLET PO SCH (06:18)
[2021-05-10] MEDS: INSULIN ASPART 300 UNIT/3 ML PEN SUBQ SCH ×4 (08:16→20:59)
[2021-05-10] MEDS: POTASSIUM CHLORIDE 10 MEQ CAPSULE PO SCH (08:19)
[2021-05-10] MEDS: CHOLECALCIFEROL 5,000 UNIT CAPSULE PO SCH (08:19)
[2021-05-10] MEDS: ENOXAPARIN 100 MG/ML SYRINGE SUBQ SCH (08:20)
[2021-05-10] MEDS: guaiFENesin 600 MG TABLET PO SCH ×2 (08:20→20:56)
[2021-05-10] MEDS: FAMOTIDINE 20 MG TABLET PO SCH ×2 (08:20→20:57)
[2021-05-10] MEDS: FUROSEMIDE 40 MG TABLET PO SCH (08:20)
[2021-05-10] MEDS: METHADONE 5 MG TABLET PO SCH ×2 (08:20→20:56)
[2021-05-10] MEDS: NYSTATIN POWDER 15 GM TOP SCH ×2 (08:21→21:00)
[2021-05-10] MEDS: polyethylene glycoL 3350 17 GM PACKET PO SCH (08:21)
[2021-05-10] MEDS: PREGABALIN 25 MG CAPSULE PO SCH ×2 (08:21→20:56)
[2021-05-10] MEDS: SODIUM CHLORIDE FLUSH 0.9% 10 ML SYRINGE IVP SCH ×2 (08:22→16:46)
[2021-05-10] MEDS: BUDESONIDE 0.5 MG/2 ML NEB INH SCH ×2 (08:46→19:35)
[2021-05-10] MEDS: AZITHROMYCIN INJ 500 MG in SODIUM CHLORIDE 0.9% 250 ML IV SCH (16:46)
--- NOTE | 2021-05-10 18:43 | PROVIDER PROGRESS NOTE ---
Assessment/Plan - Problem List (1) Acute respiratory failure with hypoxia Assessment/Plan: Etiology is felt to be COPD exacerbation, mild heart failure and possibly obesity-hypoventilation. She is out of ICU and off BIPAP. Will use supplemental O2 to keep saturations >88% (2) CO2 retention Assessment/Plan: Her morning labs repeatedly show a high bicarb, consistent with a chronic CO2 retention. She did not require BIPAP last night in the ICU (but it was put on by RT just "for her benefit"). She is out of the ICU today. We will order continuous overnight oximetry to assess if she has sleep apnea as she describes since she has never had a official sleep study as an outpatient (3) Word finding difficulty Assessment/Plan: Will do CT head. I have signed this out to [facility] to check (4) Parainfluenza virus infection Assessment/Plan: As per lab results; this may have led to the COPD exacerbation (5) COPD exacerbation Assessment/Plan: She has a wet cough that she cannot expectorate and has scattered wheezes She is on nebs, Mucinex, suppl O2 and empiric Zithromax course for bronchitis. Will add steroids (6) Chronic diastolic heart failure Assessment/Plan: Will continue her oral Lasix, given very little leg edema and marked pre-renal azotemia on labs (7) MILLIE (acute kidney injury) Assessment/Plan: She has significant intravascular volume contraction by daily labs, and is on Lasix We are continuing the po Lasix dose, not giving iv Lasix, due to these labs Avoid nephrotoxins, Metformin is on hold Follow BMP daily (8) Morbid obesity with BMI of 60.0-69.9, adult Assessment/Plan: As per Hx. Will get a Nutrition/RD consult (9) Diabetes mellitus Assessment/Plan: She had good glucose control at home, since her A1c here was 6.1. Continue with diabetic diet and sliding scale insulin coverage while here, her Metformin is on hold due to MILLIE (10) Hypothyroidism Assessment/Plan: She is on her home dose of thyroid replacement medicine (11) Open wound, lower leg Assessment/Plan: She has chronic bilateral coates wounds, currently the left one is active but she only needs topical bandages for managing this currently, no antibiotic (12) Chronic pain syndrome Assessment/Plan: We have resumed her usual pain medication - Current Meds Current Meds: Current Medications Generic Name Dose Route Start Last Admin Trade Name Freq PRN Reason Stop Dose Admin Albuterol 2.5 mg 05/08/21 14:24 05/09/21 19:54 Albuterol Neb 2.5 Mg/3 Ml INH 2.5 mg Q4HR PRN Administration Wheezing Atorvastatin Calcium 40 mg 05/08/21 21:00 05/09/21 20:54 Atorvastatin 40 Mg Tablet PO 40 mg QPM NATHAN Administration Budesonide 0.5 mg 05/08/21 19:00 05/10/21 08:46 Budesonide 0.5 Mg/2 Ml Neb INH 0.5 mg RTBID NATHAN Administration Cholecalciferol 5,000 unit 05/09/21 09:00 05/10/21 08:19 Cholecalciferol 5,000 Unit Capsule PO 5,000 unit DAILY NATHAN Administration Enoxaparin Sodium 100 mg 05/09/21 09:00 05/10/21 08:20 Enoxaparin 100 Mg/Ml Syringe SUBQ 100 mg DAILY NATHAN Administration Famotidine 20 mg 05/08/21 21:00 05/10/21 08:20 Famotidine 20 Mg Tablet PO 20 mg BID NATHAN Administration Furosemide 60 mg 05/09/21 09:00 05/10/21 08:20 Furosemide 40 Mg Tablet PO 60 mg DAILY NATHAN Administration Guaifenesin 600 mg 05/08/21 21:00 05/10/21 08:20 Guaifenesin 600 Mg Tablet PO 600 mg BID NATHAN Administration Insulin Aspart 3 - 11 unit 05/10/21 17:00 05/10/21 17:19 Insulin Aspart 300 Unit/3 Ml Pen SUBQ 5 unit 0800,1200,1700,2100 NATHAN Administration Protocol Levothyroxine Sodium 125 mcg 05/09/21 07:00 05/10/21 06:18 Levothyroxine 125 Mcg Tablet PO 125 mcg QDAC NATHAN Administration Liothyronine Sodium 25 mcg 05/09/21 07:00 05/10/21 06:18 Liothyronine 25 Mcg Tablet PO 25 mcg QDAC NATHAN Administration Methadone HCl 10 mg 05/08/21 21:00 05/10/21 08:20 Methadone 5 Mg Tablet PO 10 mg BID NATHAN Administration Methylprednisolone Sodium Succinate 80 mg 05/08/21 22:00 05/10/21 14:14 Methylprednisolone Succinate 125 Mg/2 Ml Vial IVP 80 mg Q8HR NATHAN Administration Montelukast Sodium 10 mg 05/08/21 21:00 05/09/21 20:55 Montelukast 10 Mg Tablet PO 10 mg QPM NATHAN Administration Nystatin 1 applic 05/08/21 21:00 05/10/21 08:21 Nystatin Powder 15 Gm TOP 1 applic BID NATHAN Administration Oxycodone HCl 10 mg 05/08/21 15:19 05/10/21 14:13 Oxycodone 5 Mg Tablet PO 10 mg Q4H PRN Administration PAIN Polyethylene Glycol 17 gm 05/09/21 12:00 05/10/21 08:21 Polyethylene Glycol 3350 17 Gm Packet PO 17 gm DAILY NATHAN Administration Potassium Chloride 10 meq 05/09/21 08:00 05/10/21 08:19 Potassium Chloride 10 Meq Capsule PO Not Given DAILYWM NATHAN Pregabalin 50 mg 05/08/21 21:00 05/10/21 08:21 Pregabalin 25 Mg Capsule PO 50 mg BID NATHAN Administration Sertraline HCl 150 mg 05/08/21 21:00 05/09/21 20:56 Sertraline 50 Mg Tablet PO 150 mg HS NATHAN Administration Sodium Chloride 10 ml 05/08/21 17:00 05/10/21 16:46 Sodium Chloride Flush 0.9% 10 Ml Syringe IVP 10 ml 0100,0900,1700 NATHAN Administration Sodium Chloride 10 ml 05/08/21 14:24 05/10/21 06:18 Sodium Chloride Flush 0.9% 10 Ml Syringe IVP 10 ml PRN PRN Administration NEEDED PER PROVIDER ORDERS - Lab Result Fish Bone Diagrams: 05/12/21 05:15 05/12/21 05:15 - Additional Planning My Orders: My Active Orders 05/10/21 10:23 BiPAP [Discontinue BiPAP/CPAP] [RC] ONCE 05/10/21 17:00 Insulin Aspart [NovoLOG] 3 - 11 unit SUBQ 0800,1200,1700,2100 05/11/21 05:00 BMP - BASIC METABOLIC PANEL [CHEM] DAILYLAB CALCIUM, IONIZED ([facility]) [BG] DAILYLAB CBC - COMP BLD CT W/AUTO DIFF [HEME] DAILYLAB MAGNESIUM [CHEM] DAILYLAB PHOSPHORUS [CHEM] DAILYLAB 05/11/21 09:00 Meloxicam [Meloxicam] 15 mg PO DAILY 05/12/21 05:00 BMP - BASIC METABOLIC PANEL [CHEM] DAILYLAB CBC - COMP BLD CT W/AUTO DIFF [HEME] DAILYLAB MAGNESIUM [CHEM] DAILYLAB PHOSPHORUS [CHEM] DAILYLAB Subjective - Subjective Patient Reports: Feeling Better, Shortness of Breath (SOB with walking in her room), Other (Reports having trouble finding words for the last few hours, she did not tell her RN or COMPUTER SYSTEMS ENGINEER.) Nursing Reports: Other (When her pain meds are late, she is very dramatic when she describes being in pain) Objective Vital Signs: Vital Signs - 24 hr 05/09/21 05/09/21 05/09/21 19:35 19:40 20:00 Temperature 37.6 C Heart Rate 80 Heart Rate [ 87 80 Monitoring electrodes] Respiratory 15 18 18 Rate Blood Pressure 133/75 H 143/65 H [Right Brachial artery] Blood Pressure [Right Radial artery] O2 Saturation 92 97 05/09/21 05/09/21 05/09/21 21:00 22:00 23:00 Temperature Heart Rate Heart Rate [ 91 89 78 Monitoring electrodes] Respiratory 18 16 25 H Rate Blood Pressure 155/70 H 157/70 H 138/58 H [Right Brachial artery] Blood Pressure [Right Radial artery] O2 Saturation 97 95 94 05/10/21 05/10/21 05/10/21 00:00 01:00 01:30 Temperature 36.6 C Heart Rate 82 Heart Rate [ 82 85 Monitoring electrodes] Respiratory 20 21 Rate Blood Pressure 143/72 H 136/74 H [Right Brachial artery] Blood Pressure [Right Radial artery] O2 Saturation 96 92 05/10/21 05/10/21 05/10/21 02:00 02:45 03:00 Temperature 37 C Heart Rate Heart Rate [ 82 90 86 Monitoring electrodes] Respiratory 14 17 15 Rate Blood Pressure 140/94 H [Right Brachial artery] Blood Pressure [Right Radial artery] O2 Saturation 98 94 95 05/10/21 05/10/21 05/10/21 04:00 05:00 05:45 Temperature Heart Rate 80 Heart Rate [ 86 82 Monitoring electrodes] Respiratory 17 20 Rate Blood Pressure 147/70 H [Right Brachial artery] Blood Pressure [Right Radial artery] O2 Saturation 94 95 05/10/21 05/10/21 05/10/21 06:00 06:27 07:00 Temperature Heart Rate Heart Rate [ 81 84 Monitoring electrodes] Respiratory 15 15 18 Rate Blood Pressure 123/59 L 124/70 [Right Brachial artery] Blood Pressure [Right Radial artery] O2 Saturation 94 95 92 05/10/21 05/10/21 05/10/21 08:00 08:47 09:00 Temperature 37.1 C Heart Rate 99 Heart Rate [ 92 93 Monitoring electrodes] Respiratory 24 19 20 Rate Blood Pressure 143/72 H 136/67 H [Right Brachial artery] Blood Pressure [Right Radial artery] O2 Saturation 93 90 L 05/10/21 05/10/21 05/10/21 10:00 11:45 12:05 Temperature 37.2 C Heart Rate Heart Rate [ 90 91 Monitoring electrodes] Respiratory 18 20 Rate Blood Pressure 151/87 H [Right Brachial artery] Blood Pressure [Right Radial artery] O2 Saturation 92 90 L 05/10/21 05/10/21 16:58 17:00 Temperature 37.3 C Heart Rate Heart Rate [ 86 Monitoring electrodes] Respiratory 21 Rate Blood Pressure [Right Brachial artery] Blood Pressure 150/83 H [Right Radial artery] O2 Saturation 89 L 93 Oxygen O2 Source Nasal cannula Oxygen Flow Rate 5 I&O (Last 24 Hrs): Intake and Output Totals x24h 05/08/21 05/09/21 05/10/21 23:59 23:59 23:59 Intake Total 350 2410 3510 Output Total 0 2200 3250 Balance 350 210 260 General: Alert, Oriented x3 HEENT: Mucous membr. moist/pink Neck: Supple, Other (Obese) Neuro: Alert, Other (Has hesitancy, halted speech and possibly word finding difficulty, otherwise nonfocal) Cardiovascular: Regular rate, No murmurs Respiratory: Wheezes (upper lung galindo) Abdomen: Soft, Other (Obese with pannus) Extremities: No edema, Other (L coates is wrapped, both shins have venous stasis color changes) - Results Results: Laboratory Results WBC 14.8 x10^3/uL (4.8-10.8) H 05/10/21 03:22 RBC 3.55 10^6/uL (4.20-5.40) L 05/10/21 03:22 Hgb 9.6 g/dL (12.0-16.0) L 05/10/21 03:22 Hct 32.3 % (37.0-47.0) L 05/10/21 03:22 MCV 91.0 fL (81.0-99.0) 05/10/21 03:22 MCH 27.0 pg (27.0-31.0) 05/10/21 03:22 MCHC 29.7 g/dL (32.0-36.0) L 05/10/21 03:22 RDW 15.2 % (12.0-15.0) H 05/10/21 03:22 Plt Count 252 10^3/uL (130-450) 05/10/21 03:22 MPV 10.7 fL (7.9-10.8) 05/10/21 03:22 Neut # (Auto) 13.3 10^3/uL (1.5-6.6) H 05/10/21 03:22 Lymph # (Auto) 0.9 10^3/uL (1.5-3.5) L 05/10/21 03:22 [place] # (Auto) 0.4 10^3/uL (0.0-1.0) 05/10/21 03:22 Eos # (Auto) 0.0 10^3/uL (0.0-0.7) 05/10/21 03:22 Baso # (Auto) 0.0 10^3/uL (0.0-0.1) 05/10/21 03:22 Absolute Nucleated RBC 0.00 x10^3/uL 05/10/21 03:22 Nucleated RBC % 0.0 /100WBC 05/10/21 03:22 Manual Slide Review Indicated 05/08/21 13:15 RBC Morph Micro Appear 2+ ANISOCYTOSIS (NORMAL) 05/08/21 13:15 Bld Gas Analysis Time 0504 05/09/21 04:56 Sample Site RIGHT RADIAL 05/09/21 04:56 ABG pH 7.27 (7.35-7.45) L 05/09/21 04:56 ABG pCO2 66 mmHg (34-45) H* 05/09/21 04:56 ABG pO2 84 mmHg (80-100) 05/09/21 04:56 ABG HCO3 29.2 mmol/L (22.0-26.0) H 05/09/21 04:56 ABG Total CO2 31.2 MMOL/L (21.0-29.0) H 05/09/21 04:56 ABG O2 Saturation 95 % (94-98) 05/09/21 04:56 ABG Base Excess 1.2 mmol/L (-2.0-3.0) 05/09/21 04:56 Brent Test POSITIVE 05/09/21 04:56 VBG pH 7.248 (7.31-7.41) L 05/10/21 03:22 VBG pCO2 65.8 mmHg (41-51) H 05/08/21 15:10 VBG pO2 54.3 mmHg (25-47) H 05/08/21 15:10 VBG HCO3 27.0 mmol/L (23-28) 05/08/21 15:10 VBG Total CO2 29.0 mmol/L (24-29) 05/08/21 15:10 VBG O2 Saturation 85.9 % (60-80) H 05/08/21 15:10 VBG Base Excess -1.5 mmol/L (-2 - +2) 05/08/21 15:10 Ionized Calcium 1.19 mmol/L (1.15-1.33) 05/10/21 03:22 Respiration Rate 10 b/min 05/09/21 04:56 O2 Delivery Device BiPAP 05/09/21 04:56 FiO2 40.00 05/09/21 04:56 EPAP 8 cmH2O 05/09/21 04:56 IPAP 16 cmH2O 05/09/21 04:56 Sodium 134 mmol/L (135-145) L 05/10/21 03:22 Potassium 5.2 mmol/L (3.5-5.0) H 05/10/21 03:22 Chloride 97 mmol/L (101-111) L 05/10/21 03:22 Carbon Dioxide 29 mmol/L (21-32) 05/10/21 03:22 Anion Gap 8.0 (6-13) 05/10/21 03:22 BUN 51 mg/dL (6-20) H 05/10/21 03:22 Creatinine 1.2 mg/dL (0.4-1.0) H 05/10/21 03:22 Estimated GFR (MDRD) 46 (>89) L 05/10/21 03:22 Glucose 263 mg/dL (70-100) H 05/10/21 03:22 Estimat Average Glucose 140 mg/dL (70-100) H 05/09/21 04:25 Hemoglobin A1c % 6.5 % (4.27-6.07) H 05/09/21 04:25 Lactic Acid 0.8 mmol/L (0.5-2.2) 05/08/21 13:15 Calcium 8.6 mg/dL (8.5-10.3) 05/10/21 03:22 Phosphorus 3.0 mg/dL (2.5-4.6) 05/10/21 03:22 Magnesium 2.3 mg/dL (1.7-2.8) 05/10/21 03:22 Total Bilirubin 0.7 mg/dL (0.2-1.0) 05/08/21 13:15 Direct Bilirubin 0.2 mg/dL (0.1-0.5) 05/08/21 13:15 AST 19 IU/L (10-42) 05/08/21 13:15 ALT 20 IU/L (10-60) 05/08/21 13:15 Alkaline Phosphatase 72 IU/L (42-121) 05/08/21 13:15 Troponin I High Sens 27.2 ng/L (2.3-14.8) H* 05/08/21 15:10 B-Natriuretic Peptide 106 pg/mL (5-100) H 05/08/21 13:15 Total Protein 7.7 g/dL (6.7-8.2) 05/08/21 13:15 Albumin 3.9 g/dL (3.2-5.5) 05/08/21 13:15 Globulin 3.8 g/dL (2.1-4.2) 05/08/21 13:15 TSH 0.84 uIU/mL (0.34-5.60) 05/09/21 06:46 Nasal Screen MRSA (PCR) NEGATIVE (NEGATIVE) 05/08/21 16:50
[2021-05-10] MEDS: ALBUTEROL NEB 2.5 MG/3 ML INH PRN (19:35)
--- NOTE | 2021-05-10 19:37 | CT Report ---
PROCEDURE: Head W/O Stroke Protocol INDICATIONS: stroke-like symptoms TECHNIQUE: Noncontrast 4.5 mm thick angled axial sections acquired from the foramen magnum to the vertex, with c oronal reformats. For radiation dose reduction, the following was used: automated exposure control, adjustment of mA and/or kV according to patient size. COMPARISON: FINDINGS: Image quality: Excellent. CSF spaces: Basal cisterns are patent. No extra-axial fluid collections. Ventricles are normal in size and shape. Brain: No midline shift. No intracranial masses or hemorrhage. Banks-white matter interface is norm al. Skull and face: Calvarium and visualized facial bones are intact, without suspicious lesions. Sinuses: Visualized sinuses and mastoids are clear. IMPRESSION: 1. No acute intracranial process. The above findings were discussed with hospitalist on 05/10/2021 at 7:35 PM. This study fulfills neurological imaging criteria for inclusion or exclusion of acute stroke therapie s based on available published neurological imaging guidelines. Reviewed by: Ana Quiroz MD on 05/10/2021 7:36 PM PST Approved by: Ana Quiroz MD on 05/10/2021 7:36 PM PST Station ID: [id number]
[2021-05-10] MEDS: MONTELUKAST 10 MG TABLET PO SCH (20:56)
[2021-05-10] MEDS: ATORVASTATIN 40 MG TABLET PO SCH (20:56)
[2021-05-10] MEDS: SERTRALINE 50 MG TABLET PO SCH (20:56)
[2021-05-10 21:40] LABS: ALBUMIN 3.9 g/dL (3.2-5.5); BILIRUBIN,DIRECT 0.1 mg/dL (0.1-0.5); BILIRUBIN,TOTAL 0.3 mg/dL (0.2-1.0); CALCIUM 9.3 mg/dL (8.5-10.3); CREATININE 1.2 mg/dL (0.4-1.0); POTASSIUM 4.9 mmol/L (3.5-5.0); TOTAL PROTEIN 7.8 g/dL (6.7-8.2)
[2021-05-10] MEDS ORDERED: MAG HYDROX/AL HYDROX/SIMETH 30 ML UDC PO STA (21:52)
[2021-05-11] MEDS: SODIUM CHLORIDE FLUSH 0.9% 10 ML SYRINGE IVP SCH ×3 (00:01→17:00)
[2021-05-11] MEDS: MORPHINE 2 MG/ML CARPUJECT IVP PRN ×3 (00:01→10:28)
[2021-05-11 06:15] LABS: BASOPHILS % (AUTO) 0.1 %; HGB - HEMOGLOBIN 10.3 g/dL (12.0-16.0); LYMPHOCYTES % (AUTO) 8.3 %; MEAN CORPUSCULAR HEMOGLOBIN 27.3 pg (27.0-31.0); MEAN CORPUSCULAR HGB CONC 31.2 g/dL (32.0-36.0); MEAN CORPUSCULAR VOLUME 87.5 fL (81.0-99.0); MEAN PLATELET VOLUME 10.9 fL (7.9-10.8); MONOCYTES # (AUTO) 0.6 10^3/uL (0.0-1.0); MONOCYTES % (AUTO) 4.6 %; NEUTROPHILS # (AUTO) 10.6 10^3/uL (1.5-6.6); NEUTROPHILS % (AUTO) 86.3 %; PLT - PLATELET COUNT 289 10^3/uL (130-450); RED BLOOD COUNT 3.77 10^6/uL (4.20-5.40); RED CELL DISTRIBUTION WIDTH 14.9 % (12.0-15.0); WHITE BLOOD COUNT 12.3 x10^3/uL (4.8-10.8)
[2021-05-11 06:26] LABS: CALCIUM 9.2 mg/dL (8.5-10.3); CREATININE 1.1 mg/dL (0.4-1.0); MAGNESIUM 2.3 mg/dL (1.7-2.8); PHOSPHORUS 1.9 mg/dL (2.5-4.6); POTASSIUM 4.6 mmol/L (3.5-5.0)
[2021-05-11 06:48] LABS: CALCIUM, IONIZED 1.16 mmol/L (1.15-1.33); VBG PH 7.394 (7.31-7.41)
[2021-05-11] MEDS: methylPREDNISolone SUCCINATE 125 MG/2 ML VIAL IVP SCH ×3 (07:38→22:42)
[2021-05-11] MEDS: LIOTHYRONINE 25 MCG TABLET PO SCH (07:38)
[2021-05-11] MEDS: LEVOTHYROXINE 125 MCG TABLET PO SCH (07:38)
[2021-05-11] MEDS: SODIUM CHLORIDE FLUSH 0.9% 10 ML SYRINGE IVP PRN ×2 (07:39→10:27)
[2021-05-11] MEDS: ALBUTEROL NEB 2.5 MG/3 ML INH PRN (07:58)
[2021-05-11] MEDS: BUDESONIDE 0.5 MG/2 ML NEB INH SCH ×2 (07:58→19:54)
[2021-05-11] MEDS: INSULIN ASPART 300 UNIT/3 ML PEN SUBQ SCH ×4 (08:15→22:43)
[2021-05-11] MEDS: METHADONE 5 MG TABLET PO SCH ×2 (08:42→22:41)
[2021-05-11] MEDS: ENOXAPARIN 100 MG/ML SYRINGE SUBQ SCH ×2 (08:42→22:42)
[2021-05-11] MEDS: PREGABALIN 25 MG CAPSULE PO SCH ×2 (08:43→22:42)
[2021-05-11] MEDS: CHOLECALCIFEROL 5,000 UNIT CAPSULE PO SCH (08:44)
[2021-05-11] MEDS: FAMOTIDINE 20 MG TABLET PO SCH ×2 (08:44→22:42)
[2021-05-11] MEDS: FUROSEMIDE 40 MG TABLET PO SCH (08:44)
[2021-05-11] MEDS: guaiFENesin 600 MG TABLET PO SCH ×2 (08:45→22:41)
[2021-05-11] MEDS: MELOXICAM 7.5 MG TABLET PO SCH (08:45)
[2021-05-11] MEDS: polyethylene glycoL 3350 17 GM PACKET PO SCH (08:46)
[2021-05-11] MEDS: POTASSIUM CHLORIDE 10 MEQ CAPSULE PO SCH (08:46)
[2021-05-11] MEDS: NYSTATIN POWDER 15 GM TOP SCH ×2 (08:47→22:42)
[2021-05-11] MEDS ORDERED: LORazepam 2 MG/ML VIAL IVP ONE (10:41)
--- NOTE | 2021-05-11 14:57 | PROVIDER PROGRESS NOTE ---
Assessment/Plan - Problem List (1) Acute respiratory failure with hypoxia Assessment/Plan: The patient is tolerating room air at rest today with adequate saturations. She had a continuous oximetry put on for overnight monitoring and it did show multiple episodes of brief desaturations below 85%. Plan would be to do an oximetry walk test before she is discharged to see if she qualifies for home oxygen. The oximetry also suggest that she has sleep apnea and she will need an outpatient sleep study to see if she requires a CPAP machine or possibly BiPAP (with supplemental oxygen as well). All the above was discussed with daughter Maryanne by phone today (2) CO2 retention Assessment/Plan: The patient gets somnolent with CO2 retention, this was documented on her first day of admission. Will continue to follow her serum bicarb and also intermittent ABGs to assure she is not CO2 retaining again (3) Word finding difficulty Assessment/Plan: The social sciences instructor passed on information from the daughter Maryanne, that the patient has had interimmitent confusion, speaking a word salad or difficulty finding words, and thios has occurred multiple times in the past. The daughter wonders if these are episodes of hypoxia. Yesterday CT of the head was done to rule out stroke and showed no stroke or hemorrhage or mass, it was within normal limits. Will continue with keeping her oxygen levels greater than 88% and checking for recurrent CO2 narcosis. Will request a cognitive evaluation by OT (they are here tomorrow, today Antoine nday). This was all discussed with the daughter Maryanne by phone today. (4) COPD exacerbation Assessment/Plan: Patient is on nebulizers and supplemental oxygen. Continue with present plan and weaning oxygen down as tolerated. (5) Parainfluenza virus infection Assessment/Plan: As per recent lab tests (6) Chronic diastolic heart failure Assessment/Plan: Echocardiogram revealed preserved LVEF and diastolic dysfunction present. The patient is not in volume overload clinically, she is on her maintenance daily oral Lasix dose (7) MILLIE (acute kidney injury) Assessment/Plan: Her labs still show prerenal azotemia daily, despite no additional IV Lasix used here. Continue to avoid nephrotoxins. Follow BMP daily (8) Morbid obesity with BMI of 60.0-69.9, adult Assessment/Plan: When I spoke to the daughter Maryanne by phone today, it was learned that Maryanne has been off [facility] for 5 years with her family, recently moved back. Maryanne's eldest son 19 years old recently from car exhaust fumes that overcame him. The patient has had anxiety whenever she thinks about this . The family is also still very emotional and in mourning. Since Maryanne has moved back to [facility], she has noticed that the mother has gained weight substantially; she weighed 300 pounds several years ago, now wighs about 440 pounds. Maryanne described that the patient gets meals from her son who she lives with, food from other family members which is brought in, and she also gets Meals on Wheels. RD consult for morbid obesity will be ordered. (9) Diabetes mellitus Assessment/Plan: She had good glucose control at home, A1c was 6.1. Continue with diabetic diet and sliding scale insulin coverage while here, her Metformin is on hold due to MILLIE (10) Hypothyroidism Assessment/Plan: She is on her home dose of thyroid replacement medicine (11) Open wound, lower leg Assessment/Plan: She has chronic bilateral coates wounds, currently the left one is active but she only needs topical bandages for managing this currently, no antibiotic (12) Chronic pain syndrome Assessment/Plan: We have resumed her usual pain medication - Current Meds Current Meds: Current Medications Generic Name Dose Route Start Last Admin Trade Name Freq PRN Reason Stop Dose Admin Albuterol 2.5 mg 05/08/21 14:24 05/11/21 07:58 Albuterol Neb 2.5 Mg/3 Ml INH 2.5 mg Q4HR PRN Administration Wheezing Atorvastatin Calcium 40 mg 05/08/21 21:00 05/10/21 20:56 Atorvastatin 40 Mg Tablet PO 40 mg QPM NATHAN Administration Budesonide 0.5 mg 05/08/21 19:00 05/11/21 07:58 Budesonide 0.5 Mg/2 Ml Neb INH 0.5 mg RTBID NATHAN Administration Cholecalciferol 5,000 unit 05/09/21 09:00 05/11/21 08:44 Cholecalciferol 5,000 Unit Capsule PO 5,000 unit DAILY NATHAN Administration Famotidine 20 mg 05/08/21 21:00 05/11/21 08:44 Famotidine 20 Mg Tablet PO 20 mg BID NATHAN Administration Furosemide 60 mg 05/09/21 09:00 05/11/21 08:44 Furosemide 40 Mg Tablet PO 60 mg DAILY NATHAN Administration Guaifenesin 600 mg 05/08/21 21:00 05/11/21 08:45 Guaifenesin 600 Mg Tablet PO 600 mg BID NATHAN Administration Insulin Aspart 3 - 11 unit 05/10/21 17:00 05/11/21 11:13 Insulin Aspart 300 Unit/3 Ml Pen SUBQ 9 unit 0800,1200,1700,2100 NATHAN Administration Protocol Levothyroxine Sodium 125 mcg 05/09/21 07:00 05/11/21 07:38 Levothyroxine 125 Mcg Tablet PO 125 mcg QDAC NATHAN Administration Liothyronine Sodium 25 mcg 05/09/21 07:00 05/11/21 07:38 Liothyronine 25 Mcg Tablet PO 25 mcg QDAC NATHAN Administration Meloxicam 15 mg 05/11/21 09:00 05/11/21 08:45 Meloxicam 7.5 Mg Tablet PO 15 mg DAILY NATHAN Administration Methadone HCl 10 mg 05/08/21 21:00 05/11/21 08:42 Methadone 5 Mg Tablet PO 10 mg BID NATHAN Administration Methylprednisolone Sodium Succinate 80 mg 05/08/21 22:00 05/11/21 13:36 Methylprednisolone Succinate 125 Mg/2 Ml Vial IVP 80 mg Q8HR NATHAN Administration Montelukast Sodium 10 mg 05/08/21 21:00 05/10/21 20:56 Montelukast 10 Mg Tablet PO 10 mg QPM NATHAN Administration Morphine Sulfate 2 mg 05/08/21 14:24 05/11/21 10:28 Morphine 2 Mg/Ml Carpuject IVP 2 mg Q2HR PRN Administration Dyspnea Nystatin 1 applic 05/08/21 21:00 05/11/21 08:47 Nystatin Powder 15 Gm TOP 1 applic BID NATHAN Administration Oxycodone HCl 10 mg 05/08/21 15:19 05/10/21 20:56 Oxycodone 5 Mg Tablet PO 10 mg Q4H PRN Administration PAIN Polyethylene Glycol 17 gm 05/09/21 12:00 05/11/21 08:46 Polyethylene Glycol 3350 17 Gm Packet PO 17 gm DAILY NATHAN Administration Potassium Chloride 10 meq 05/09/21 08:00 05/11/21 08:46 Potassium Chloride 10 Meq Capsule PO 10 meq DAILYWM NATHAN Administration Pregabalin 50 mg 05/08/21 21:00 05/11/21 08:43 Pregabalin 25 Mg Capsule PO 50 mg BID NATHAN Administration Sertraline HCl 150 mg 05/08/21 21:00 05/10/21 20:56 Sertraline 50 Mg Tablet PO 150 mg HS NATHAN Administration Sodium Chloride 10 ml 05/08/21 17:00 05/11/21 10:21 Sodium Chloride Flush 0.9% 10 Ml Syringe IVP 10 ml 0100,0900,1700 NATHAN Administration Sodium Chloride 10 ml 05/08/21 14:24 05/11/21 10:27 Sodium Chloride Flush 0.9% 10 Ml Syringe IVP 10 ml PRN PRN Administration NEEDED PER PROVIDER ORDERS - Lab Result Fish Bone Diagrams: 05/12/21 05:15 05/12/21 05:15 - Additional Planning My Orders: My Active Orders 05/10/21 17:00 Insulin Aspart [NovoLOG] 3 - 11 unit SUBQ 0800,1200,1700,2100 05/11/21 08:44 Miscellaenous Nursing Order [RC] ONCE Oxygen Desat. Study w/Exercise [RC] .ONCE 05/11/21 09:00 Meloxicam [Mobic] 15 mg PO DAILY 05/11/21 21:00 Enoxaparin [Lovenox] 100 mg SUBQ BID 05/12/21 05:00 BMP - BASIC METABOLIC PANEL [CHEM] DAILYLAB CBC - COMP BLD CT W/AUTO DIFF [HEME] DAILYLAB MAGNESIUM [CHEM] DAILYLAB PHOSPHORUS [CHEM] DAILYLAB Subjective - Subjective Patient Reports: Pain, Shortness of Breath Nursing Reports: Shortness of Breath (She gets morning panicky feeling and becomes tachypneic) Objective Vital Signs: Vital Signs - 24 hr 05/10/21 05/10/21 05/10/21 16:58 17:00 18:00 Temperature 37.3 C Heart Rate Heart Rate [ 86 Monitoring electrodes] Respiratory 21 Rate Blood Pressure [Left Brachial artery] Blood Pressure [Right Brachial artery] Blood Pressure 150/83 H [Right Radial artery] O2 Saturation 89 L 93 90 L 05/10/21 05/10/21 05/11/21 19:35 20:51 00:03 Temperature 36.7 C 36.7 C Heart Rate 89 Heart Rate [ 86 75 Monitoring electrodes] Respiratory 20 22 24 Rate Blood Pressure [Left Brachial artery] Blood Pressure 150/77 H 162/78 H [Right Brachial artery] Blood Pressure [Right Radial artery] O2 Saturation 94 93 05/11/21 05/11/21 05/11/21 04:42 07:59 08:15 Temperature 36.6 C 36.4 C L Heart Rate 57 L Heart Rate [ 74 56 L Monitoring electrodes] Respiratory 24 22 22 Rate Blood Pressure 142/107 H [Left Brachial artery] Blood Pressure 175/105 H [Right Brachial artery] Blood Pressure [Right Radial artery] O2 Saturation 95 05/11/21 05/11/21 05/11/21 10:09 10:14 11:52 Temperature 36.8 C Heart Rate Heart Rate [ 93 79 77 Monitoring electrodes] Respiratory 24 Rate Blood Pressure [Left Brachial artery] Blood Pressure 172/82 H [Right Brachial artery] Blood Pressure [Right Radial artery] O2 Saturation 93 97 93 Oxygen O2 Source Nasal cannula Oxygen Flow Rate 5 I&O (Last 24 Hrs): Intake and Output Totals x24h 05/09/21 05/10/21 05/11/21 23:59 23:59 23:59 Intake Total 2410 3510 420 Output Total 2200 3350 200 Balance 210 160 220 General: Alert, Moderate distress (tachypneic) HEENT: Atraumatic, EOMI Neck: Other (Obese and cannot eval JVP) Neuro: Alert, Non Focal, Other (Speech was somewhat halted) Cardiovascular: Regular rate Respiratory: Wheezes Abdomen: Soft (Obese with a very large pannus) Extremities: Other (Trcae pretibial edema, venous stasis changes of shins) - Results Results: Laboratory Results WBC 12.3 x10^3/uL (4.8-10.8) H 05/11/21 05:08 RBC 3.77 10^6/uL (4.20-5.40) L 05/11/21 05:08 Hgb 10.3 g/dL (12.0-16.0) L 05/11/21 05:08 Hct 33.0 % (37.0-47.0) L 05/11/21 05:08 MCV 87.5 fL (81.0-99.0) 05/11/21 05:08 MCH 27.3 pg (27.0-31.0) 05/11/21 05:08 MCHC 31.2 g/dL (32.0-36.0) L 05/11/21 05:08 RDW 14.9 % (12.0-15.0) 05/11/21 05:08 Plt Count 289 10^3/uL (130-450) 05/11/21 05:08 MPV 10.9 fL (7.9-10.8) H 05/11/21 05:08 Neut # (Auto) 10.6 10^3/uL (1.5-6.6) H 05/11/21 05:08 Lymph # (Auto) 1.0 10^3/uL (1.5-3.5) L 05/11/21 05:08 Bradley # (Auto) 0.6 10^3/uL (0.0-1.0) 05/11/21 05:08 Eos # (Auto) 0.0 10^3/uL (0.0-0.7) 05/11/21 05:08 Baso # (Auto) 0.0 10^3/uL (0.0-0.1) 05/11/21 05:08 Absolute Nucleated RBC 0.00 x10^3/uL 05/11/21 05:08 Nucleated RBC % 0.0 /100WBC 05/11/21 05:08 Manual Slide Review Indicated 05/08/21 13:15 RBC Morph Micro Appear 2+ ANISOCYTOSIS (NORMAL) 05/08/21 13:15 Bld Gas Analysis Time 0504 05/09/21 04:56 Sample Site RIGHT RADIAL 05/09/21 04:56 ABG pH 7.27 (7.35-7.45) L 05/09/21 04:56 ABG pCO2 66 mmHg (34-45) H* 05/09/21 04:56 ABG pO2 84 mmHg (80-100) 05/09/21 04:56 ABG HCO3 29.2 mmol/L (22.0-26.0) H 05/09/21 04:56 ABG Total CO2 31.2 MMOL/L (21.0-29.0) H 05/09/21 04:56 ABG O2 Saturation 95 % (94-98) 05/09/21 04:56 ABG Base Excess 1.2 mmol/L (-2.0-3.0) 05/09/21 04:56 Brent Test POSITIVE 05/09/21 04:56 VBG pH 7.394 (7.31-7.41) 05/11/21 05:08 VBG pCO2 65.8 mmHg (41-51) H 05/08/21 15:10 VBG pO2 54.3 mmHg (25-47) H 05/08/21 15:10 VBG HCO3 27.0 mmol/L (23-28) 05/08/21 15:10 VBG Total CO2 29.0 mmol/L (24-29) 05/08/21 15:10 VBG O2 Saturation 85.9 % (60-80) H 05/08/21 15:10 VBG Base Excess -1.5 mmol/L (-2 - +2) 05/08/21 15:10 Ionized Calcium 1.16 mmol/L (1.15-1.33) 05/11/21 05:08 Respiration Rate 10 b/min 05/09/21 04:56 O2 Delivery Device BiPAP 05/09/21 04:56 FiO2 40.00 05/09/21 04:56 EPAP 8 cmH2O 05/09/21 04:56 IPAP 16 cmH2O 05/09/21 04:56 Sodium 136 mmol/L (135-145) 05/11/21 05:08 Potassium 4.6 mmol/L (3.5-5.0) 05/11/21 05:08 Chloride 97 mmol/L (101-111) L 05/11/21 05:08 Carbon Dioxide 29 mmol/L (21-32) 05/11/21 05:08 Anion Gap 10.0 (6-13) 05/11/21 05:08 BUN 50 mg/dL (6-20) H 05/11/21 05:08 Creatinine 1.1 mg/dL (0.4-1.0) H 05/11/21 05:08 Estimated GFR (MDRD) 50 (>89) L 05/11/21 05:08 Glucose 221 mg/dL (70-100) H 05/11/21 05:08 Estimat Average Glucose 140 mg/dL (70-100) H 05/09/21 04:25 Hemoglobin A1c % 6.5 % (4.27-6.07) H 05/09/21 04:25 Lactic Acid 1.3 mmol/L (0.5-2.2) 05/10/21 21:15 Calcium 9.2 mg/dL (8.5-10.3) 05/11/21 05:08 Phosphorus 1.9 mg/dL (2.5-4.6) L 05/11/21 05:08 Magnesium 2.3 mg/dL (1.7-2.8) 05/11/21 05:08 Total Bilirubin 0.3 mg/dL (0.2-1.0) 05/10/21 21:15 Direct Bilirubin 0.1 mg/dL (0.1-0.5) 05/10/21 21:15 AST 37 IU/L (10-42) 05/10/21 21:15 ALT 31 IU/L (10-60) 05/10/21 21:15 Alkaline Phosphatase 65 IU/L (42-121) 05/10/21 21:15 Troponin I High Sens 26.3 ng/L (2.3-14.8) H* 05/10/21 21:15 B-Natriuretic Peptide 106 pg/mL (5-100) H 05/08/21 13:15 Total Protein 7.8 g/dL (6.7-8.2) 05/10/21 21:15 Albumin 3.9 g/dL (3.2-5.5) 05/10/21 21:15 Globulin 3.9 g/dL (2.1-4.2) 05/10/21 21:15 Lipase 20 U/L (22-51) L 05/10/21 21:15 TSH 0.84 uIU/mL (0.34-5.60) 05/09/21 06:46 Nasal Screen MRSA (PCR) NEGATIVE (NEGATIVE) 05/08/21 16:50
[2021-05-11] MEDS ORDERED: lisinopriL 5 MG TABLET PO STA (17:45)
[2021-05-11] MEDS ORDERED: MAGNESIUM HYDROXIDE 2,400 MG/30 ML UDC PO ONE (17:52)
[2021-05-11] MEDS: hydrOXYzine PAMOATE 25 MG CAPSULE PO PRN (18:05)
[2021-05-11] MEDS: oxyCODONE 5 MG TABLET PO PRN (18:05)
[2021-05-11] MEDS ORDERED: iohexoL-300 100 ML VIAL ONE (20:30)
--- NOTE | 2021-05-11 22:09 | CONSULTATION NOTE ---
Consultation Report: consulted by Hospitalist for PIV placement. #20g PIV placed in RUE with U/S guidance.
[2021-05-11] MEDS: ATORVASTATIN 40 MG TABLET PO SCH (22:41)
[2021-05-11] MEDS: SERTRALINE 50 MG TABLET PO SCH (22:42)
[2021-05-11] MEDS: MONTELUKAST 10 MG TABLET PO SCH (22:42)
[2021-05-11] MEDS ORDERED: iohexoL-300 100 ML VIAL IVP ONE (22:51)
--- NOTE | 2021-05-11 23:08 | CT Report ---
PROCEDURE: Abdomen/Pelvis W INDICATIONS: Epigastric pain. CONTRAST: IV CONTRAST: Isovue 300 ml: 1001 PO CONTRAST: *NO PO CONTRAST TECHNIQUE: After the administration of intravenous contrast, 5 mm thick sections acquired from the diaphragms to the symphysis. 5 mm thick coronal and sagittal reformats were acquired. For radiation dose reducti on, the following was used: automated exposure control, adjustment of mA and/or kV according to dafne ent size. COMPARISON: Ultrasound abdomen 02/11/2017. FINDINGS: Image quality: Evaluation limited by body habitus with evaluation limited in the left abdomen. Associ ated beam hardening artifact also present. ABDOMEN: Lung bases: There is mild dependent atelectasis and scarring in the lung bases. Heart size is normal . Solid organs: Evaluation of the liver demonstrates no focal hepatic lesions. There is a suspected shawn cified gallstone in the region of the gallbladder neck without wall thickening or pericholecystic flu id. Biliary system is non dilated. The spleen is normal in size. Pancreas demonstrates mild fatty at rophy without peripancreatic fat stranding or fluid collections. No pancreatic duct dilatation. No a drenal nodules. Kidneys demonstrate no hydronephrosis. Peritoneum and bowel: Bowel loops demonstrate normal wall thickness and caliber. No definite perice shawn inflammatory changes to suggest appendicitis. There is colonic diverticulosis without acute diver ticulitis. No free fluid or air. Nodes and vessels: No retroperitoneal or mesenteric adenopathy by size criteria. Aorta and inferior vena cava are normal in size. Miscellaneous: No ventral hernias. PELVIS: Genitourinary: Bladder wall thickness is normal. Miscellaneous: No inguinal hernias or adenopathy. Bones: No suspicious bony lesions. No vertebral body compression fractures. IMPRESSION: 1. Limited study due to body habitus. 2. Suspected cholelithiasis without CT evidence of cholecystitis. If clinically indicated, further ev aluation may be obtained with ultrasound. 3. No evidence of appendicitis. 4. Colonic diverticulosis without acute diverticulitis. Reviewed by: Tu Rodriguez MD on 05/11/2021 11:06 PM [facility] Approved by: Tu Rodriguez MD on 05/11/2021 11:06 PM PST Station ID: [id number]
[2021-05-11] MEDS ORDERED: LORazepam 0.5 MG TABLET PO STA (23:33)
[2021-05-12] MEDS: MORPHINE 2 MG/ML CARPUJECT IVP PRN ×4 (00:10→21:07)
[2021-05-12] MEDS: SODIUM CHLORIDE FLUSH 0.9% 10 ML SYRINGE IVP SCH ×3 (00:14→21:38)
[2021-05-12] MEDS: hydrOXYzine PAMOATE 25 MG CAPSULE PO PRN (03:20)
[2021-05-12] MEDS: ALBUTEROL NEB 2.5 MG/3 ML INH PRN ×3 (03:29→21:10)
[2021-05-12] MEDS: LEVOTHYROXINE 125 MCG TABLET PO SCH (05:53)
[2021-05-12] MEDS: SODIUM CHLORIDE FLUSH 0.9% 10 ML SYRINGE IVP PRN (05:53)
[2021-05-12] MEDS: methylPREDNISolone SUCCINATE 125 MG/2 ML VIAL IVP SCH ×3 (05:53→21:53)
[2021-05-12] MEDS: LIOTHYRONINE 25 MCG TABLET PO SCH (05:53)
[2021-05-12 06:16] LABS: BASOPHILS % (AUTO) 0.1 %; HCT - HEMATOCRIT 34.4 % (37.0-47.0); HGB - HEMOGLOBIN 10.7 g/dL (12.0-16.0); LYMPHOCYTES % (AUTO) 8.7 %; MEAN CORPUSCULAR HEMOGLOBIN 26.8 pg (27.0-31.0); MEAN CORPUSCULAR HGB CONC 31.1 g/dL (32.0-36.0); MEAN CORPUSCULAR VOLUME 86.2 fL (81.0-99.0); MEAN PLATELET VOLUME 11.4 fL (7.9-10.8); MONOCYTES # (AUTO) 0.7 10^3/uL (0.0-1.0); MONOCYTES % (AUTO) 5.5 %; NEUTROPHILS # (AUTO) 9.9 10^3/uL (1.5-6.6); NEUTROPHILS % (AUTO) 84.4 %; NRBC ABSOLUTE COUNT (AUTO) 0.02 x10^3/uL; NUCLEATED RED BLOOD CELLS AUTO 0.2 /100WBC; PLT - PLATELET COUNT 333 10^3/uL (130-450); RED BLOOD COUNT 3.99 10^6/uL (4.20-5.40); RED CELL DISTRIBUTION WIDTH 14.8 % (12.0-15.0); WHITE BLOOD COUNT 11.8 x10^3/uL (4.8-10.8)
[2021-05-12 06:33] LABS: CALCIUM 9.5 mg/dL (8.5-10.3); CREATININE 1.1 mg/dL (0.4-1.0); MAGNESIUM 2.3 mg/dL (1.7-2.8); PHOSPHORUS 2.2 mg/dL (2.5-4.6); POTASSIUM 4.5 mmol/L (3.5-5.0)
[2021-05-12] MEDS: BUDESONIDE 0.5 MG/2 ML NEB INH SCH ×2 (07:43→20:04)
--- NOTE | 2021-05-12 08:19 | XRAY Report ---
PROCEDURE: Chest 1 View X-Ray INDICATIONS: SOB, cough TECHNIQUE: One view of the chest was acquired. COMPARISON: Chest x-ray 05/09/2021 FINDINGS: Surgical changes and devices: None. Lungs and pleura: There is an overall appearance of increased pulmonary vascularity. Mediastinum: Mediastinal contours appear normal. Heart size is enlarged. Bones and chest wall: No suspicious bony lesions. Overlying soft tissues appear unremarkable. IMPRESSION: Cardiomegaly with increased vascularity most consistent with edema. Appearance is stable. Reviewed by: Ana Quiroz MD on 05/12/2021 8:18 AM [facility] Approved by: Ana Quiroz MD on 05/12/2021 8:18 AM [facility] Station ID: [id number]
[2021-05-12] MEDS: INSULIN ASPART 300 UNIT/3 ML PEN SUBQ SCH ×4 (08:26→21:54)
[2021-05-12] MEDS ORDERED: hydrALAZINE INJ 20 MG/ML VIAL IVP ONE (09:08)
[2021-05-12] MEDS: NYSTATIN POWDER 15 GM TOP SCH ×2 (10:20→21:43)
[2021-05-12] MEDS: FUROSEMIDE 40 MG/4 ML VIAL IVP SCH ×2 (10:21→15:57)
[2021-05-12] MEDS: polyethylene glycoL 3350 17 GM PACKET PO SCH (10:22)
[2021-05-12] MEDS: METHADONE 5 MG TABLET PO SCH ×2 (10:24→21:38)
[2021-05-12] MEDS: ENOXAPARIN 100 MG/ML SYRINGE SUBQ SCH ×2 (10:24→21:39)
[2021-05-12] MEDS: MELOXICAM 7.5 MG TABLET PO SCH (10:24)
[2021-05-12] MEDS: guaiFENesin 600 MG TABLET PO SCH ×2 (10:25→21:38)
[2021-05-12] MEDS: PREGABALIN 25 MG CAPSULE PO SCH ×2 (10:25→21:38)
[2021-05-12] MEDS: POTASSIUM CHLORIDE 10 MEQ CAPSULE PO SCH (10:26)
[2021-05-12] MEDS: CHOLECALCIFEROL 5,000 UNIT CAPSULE PO SCH (10:26)
[2021-05-12] MEDS: lisinopriL 20 MG TABLET PO SCH (10:27)
[2021-05-12] MEDS: FAMOTIDINE 20 MG TABLET PO SCH ×2 (10:27→21:39)
[2021-05-12] MEDS: NEUTRA-PHOS 250 MG TABLET PO SCH ×2 (15:56→21:37)
--- NOTE | 2021-05-12 19:25 | PROVIDER PROGRESS NOTE ---
Assessment/Plan - Problem List (1) Acute respiratory failure with hypoxia Assessment/Plan: The patient is on nasal cannula today, was on BiPAP with supplemental oxygen in the ICU for a day. Today with walking to bathroom, her O2 saturation dropped to 70s Etiology is a COPD exacerbation probably related to the parainfluenza infection, and volume overload is seen on CXR, which was repeated today. We will continue with supplemental oxygen, sats of 88-92 are acceptable. We are treating COPD and diastolic heart failure. We did an overnight oximetry and she did dip below 85% during sleep. She needs an official sleep study and CPAP for NAA as well (2) CO2 retention Assessment/Plan: Resolved after wearing BiPAP in the ICU The daughter Maryanne reported that the patient has had witnessed apnea but has never had a sleep study and does not use a CPAP machine. Also her COPD may give her chronic CO2 retention. We did an overnight oximetry and she did dip below 85% during sleep. (3) Word finding difficulty Assessment/Plan: She had word finding difficulty and a head CT was done that showed no stroke or abnormality. This happens when she speaks about her recently grandson, she reported. (He was 19 y/o and 1 month ago of CO2 poisoning from car exhaust fumes, was found in his car). The daughter reported that there were other times that her memory was por, thus she had a cognitive eval by OT today and scored fairly well. Therefore, perhaps these are times of grief reaction. (4) Parainfluenza virus infection Assessment/Plan: As per lab results Droplet precautions are ordered. (5) COPD exacerbation Assessment/Plan: The daughter Maryanne said the patient has definitely been diagnosed with COPD which the patient did not remember. The patient does confirm that she uses inhalers at home. We will continue with IV steroids, nebs and Mucinex. She finished an empiric course of Zithromax. Wean supplemental O2 down when possible, keeping sats 88-92%. (6) Acute on chronic diastolic heart failure Assessment/Plan: An Echo with Definity showed normal systolic function and diastolic dysfunction. The patient was able to recall that she has had Echoes done in 2 other locations that also showed normal systolic function. She stated she is on her Lasix only for her chronic leg edema. The Echo also showed cor pulmonale from lung disease or from obesity, which may give her chronic leg edema. I changed her po to iv Lasix. She also needs Morphine prn dyspnea. (7) MILLIE (acute kidney injury) Assessment/Plan: The BUN/creatinine are elevated Avoid nephrotoxins, the FRANTZ inhibitor and her Metformin have not been resumed. Follow BMP daily (8) Morbid obesity with BMI of 60.0-69.9, adult Assessment/Plan: As per Hx. Nutrition consult requested regarding diet (9) Diabetes mellitus Assessment/Plan: Her A1c is very good at 6.5. Metformin is on hold because of elevated creatinine She is on a carb controlled diet and sliding scale coverage insulin. (10) Hypothyroidism Assessment/Plan: Her TSH is in a normal range, at 0.89. We are continuing her home thyroid dose. (11) Open wound, lower leg Assessment/Plan: She reported that she is not on chronic antibiotics, only gets these when she "absolutely needs them". She reports having a home health nurse come to her home during the week to change the bandages. Currently only the left coates was bandaged. (12) Chronic pain syndrome Assessment/Plan: She gets panicky when her pain meds, especially Methadone dose is late. We are continuing her usual pain management medications - Current Meds Current Meds: Current Medications Generic Name Dose Route Start Last Admin Trade Name Freq PRN Reason Stop Dose Admin Albuterol 2.5 mg 05/08/21 14:24 05/12/21 07:43 Albuterol Neb 2.5 Mg/3 Ml INH 2.5 mg Q4HR PRN Administration Wheezing Atorvastatin Calcium 40 mg 05/08/21 21:00 05/11/21 22:41 Atorvastatin 40 Mg Tablet PO 40 mg QPM NATHAN Administration Budesonide 0.5 mg 05/08/21 19:00 05/12/21 07:43 Budesonide 0.5 Mg/2 Ml Neb INH 0.5 mg RTBID NATHAN Administration Cholecalciferol 5,000 unit 05/09/21 09:00 05/12/21 10:26 Cholecalciferol 5,000 Unit Capsule PO 5,000 unit DAILY NATHAN Administration Enoxaparin Sodium 100 mg 05/11/21 21:00 05/12/21 10:24 Enoxaparin 100 Mg/Ml Syringe SUBQ 100 mg BID NATHAN Administration Famotidine 20 mg 05/08/21 21:00 05/12/21 10:27 Famotidine 20 Mg Tablet PO 20 mg BID NATHAN Administration Furosemide 40 mg 05/12/21 09:00 05/12/21 15:57 Furosemide 40 Mg/4 Ml Vial IVP Not Given BIDDIURETIC NATHAN Guaifenesin 600 mg 05/08/21 21:00 05/12/21 10:25 Guaifenesin 600 Mg Tablet PO 600 mg BID NATHAN Administration Hydroxyzine Pamoate 50 mg 05/09/21 07:51 05/12/21 03:20 Hydroxyzine Pamoate 25 Mg Capsule PO 50 mg QID PRN Administration ITCHING Insulin Aspart 3 - 11 unit 05/10/21 17:00 05/12/21 15:56 Insulin Aspart 300 Unit/3 Ml Pen SUBQ Not Given 0800,1200,1700,2100 [facility] Protocol Levothyroxine Sodium 125 mcg 05/09/21 07:00 05/12/21 05:53 Levothyroxine 125 Mcg Tablet PO 125 mcg QDAC NATHAN Administration Liothyronine Sodium 25 mcg 05/09/21 07:00 05/12/21 05:53 Liothyronine 25 Mcg Tablet PO 25 mcg QDAC NATHAN Administration Lisinopril 20 mg 05/12/21 09:00 05/12/21 10:27 Lisinopril 20 Mg Tablet PO 20 mg DAILY NATHAN Administration Meloxicam 15 mg 05/11/21 09:00 05/12/21 10:24 Meloxicam 7.5 Mg Tablet PO 15 mg DAILY NATHAN Administration Methadone HCl 10 mg 05/08/21 21:00 05/12/21 10:24 Methadone 5 Mg Tablet PO 10 mg BID NATHAN Administration Methylprednisolone Sodium Succinate 80 mg 05/08/21 22:00 05/12/21 15:57 Methylprednisolone Succinate 125 Mg/2 Ml Vial IVP Not Given Q8HR NATHAN Montelukast Sodium 10 mg 05/08/21 21:00 05/11/21 22:42 Montelukast 10 Mg Tablet PO 10 mg QPM NATHAN Administration Morphine Sulfate 2 mg 05/08/21 14:24 05/12/21 08:27 Morphine 2 Mg/Ml Carpuject IVP 2 mg Q2HR PRN Administration Dyspnea Nystatin 1 applic 05/08/21 21:00 05/12/21 10:20 Nystatin Powder 15 Gm TOP 1 applic BID NATHAN Administration Oxycodone HCl 10 mg 05/08/21 15:19 05/11/21 18:05 Oxycodone 5 Mg Tablet PO 10 mg Q4H PRN Administration PAIN Polyethylene Glycol 17 gm 05/09/21 12:00 05/12/21 10:22 Polyethylene Glycol 3350 17 Gm Packet PO 17 gm DAILY NATHAN Administration Potassium Chloride 10 meq 05/09/21 08:00 05/12/21 10:26 Potassium Chloride 10 Meq Capsule PO 10 meq DAILYWM NATHAN Administration Pregabalin 50 mg 05/08/21 21:00 05/12/21 10:25 Pregabalin 25 Mg Capsule PO 50 mg BID NATHAN Administration Sertraline HCl 150 mg 05/08/21 21:00 05/11/21 22:42 Sertraline 50 Mg Tablet PO 150 mg HS NATHAN Administration Sodium Chloride 10 ml 05/08/21 17:00 05/12/21 10:32 Sodium Chloride Flush 0.9% 10 Ml Syringe IVP 10 ml 0100,0900,1700 NATHAN Administration Sodium Chloride 10 ml 05/08/21 14:24 05/12/21 05:53 Sodium Chloride Flush 0.9% 10 Ml Syringe IVP 10 ml PRN PRN Administration NEEDED PER PROVIDER ORDERS Sodium Phosphate 250 mg 05/12/21 12:00 05/12/21 15:56 Neutra-Phos 250 Mg Tablet PO 05/13/21 11:00 Not Given TIDWM NATHAN - Lab Result Fish Bone Diagrams: 05/12/21 05:15 05/12/21 05:15 - Additional Planning My Orders: My Active Orders 05/11/21 21:00 Enoxaparin [Lovenox] 100 mg SUBQ BID 05/12/21 09:00 FUROSEMIDE INJ 40mg VIAL [LASIX INJ 40 mg VIAL] 40 mg IVP BIDDIURETIC lisinopriL [Zestril] 20 mg PO DAILY 05/12/21 12:00 Neutra-Phos [K-Phos Neutral] 250 mg PO TIDWM Subjective - Subjective Patient Reports: Shortness of Breath, Other (Feels panicky) Objective Vital Signs: Vital Signs - 24 hr 05/11/21 05/11/21 05/12/21 19:55 20:57 00:10 Temperature 37.0 C 36.6 C Heart Rate 72 Heart Rate [ Activity] Heart Rate [ 69 70 Monitoring electrodes] Respiratory 22 18 22 Rate Blood Pressure Blood Pressure [Activity] Blood Pressure 173/95 H [Right Brachial artery] Blood Pressure 132/78 H [Right Radial artery] O2 Saturation 95 99 05/12/21 05/12/21 05/12/21 03:22 03:29 04:06 Temperature 36.4 C L Heart Rate 64 Heart Rate [ Activity] Heart Rate [ 76 83 Monitoring electrodes] Respiratory 25 H 22 Rate Blood Pressure Blood Pressure [Activity] Blood Pressure 160/90 H [Right Brachial artery] Blood Pressure 162/79 H [Right Radial artery] O2 Saturation 96 05/12/21 05/12/21 05/12/21 07:52 07:58 10:12 Temperature 36.4 C L 36.4 C L Heart Rate 60 70 Heart Rate [ Activity] Heart Rate [ 76 Monitoring electrodes] Respiratory 24 24 24 Rate Blood Pressure Blood Pressure [Activity] Blood Pressure [Right Brachial artery] Blood Pressure 170/88 H [Right Radial artery] O2 Saturation 100 100 05/12/21 05/12/21 05/12/21 10:27 10:32 10:39 Temperature Heart Rate Heart Rate [ Activity] Heart Rate [ 95 Monitoring electrodes] Respiratory Rate Blood Pressure 186/94 H Blood Pressure [Activity] Blood Pressure [Right Brachial artery] Blood Pressure 199/66 H 192/87 H [Right Radial artery] O2 Saturation 05/12/21 05/12/21 05/12/21 10:44 11:05 16:26 Temperature 36.8 C Heart Rate Heart Rate [ 108 H Activity] Heart Rate [ 93 64 Monitoring electrodes] Respiratory 20 Rate Blood Pressure Blood Pressure 155/81 H [Activity] Blood Pressure [Right Brachial artery] Blood Pressure 190/88 H [Right Radial artery] O2 Saturation 97 05/12/21 17:00 Temperature Heart Rate Heart Rate [ Activity] Heart Rate [ Monitoring electrodes] Respiratory Rate Blood Pressure Blood Pressure [Activity] Blood Pressure [Right Brachial artery] Blood Pressure 177/86 H [Right Radial artery] O2 Saturation Oxygen O2 Source Nasal cannula Oxygen Flow Rate 5 I&O (Last 24 Hrs): Intake and Output Totals x24h 05/10/21 05/11/21 05/12/21 23:59 23:59 23:59 Intake Total 3510 1010 680 Output Total 3350 200 Balance 160 810 680 General: Moderate distress (SOB, improved with pursed lip breathing which I taught her now) HEENT: Mucous membr. moist/pink Neck: Supple, Other (Obese, cannot eval JVP) Neuro: Alert, Non Focal Cardiovascular: Other (Distant heart sounds) Respiratory: Wheezes Abdomen: Soft, Other (Obese with large pannus) Extremities: Other (trace edema, venous changes present, shins no longer bandaged) - Results Results: Laboratory Results WBC 11.8 x10^3/uL (4.8-10.8) H 05/12/21 05:15 RBC 3.99 10^6/uL (4.20-5.40) L 05/12/21 05:15 Hgb 10.7 g/dL (12.0-16.0) L 05/12/21 05:15 Hct 34.4 % (37.0-47.0) L 05/12/21 05:15 MCV 86.2 fL (81.0-99.0) 05/12/21 05:15 MCH 26.8 pg (27.0-31.0) L 05/12/21 05:15 MCHC 31.1 g/dL (32.0-36.0) L 05/12/21 05:15 RDW 14.8 % (12.0-15.0) 05/12/21 05:15 Plt Count 333 10^3/uL (130-450) 05/12/21 05:15 MPV 11.4 fL (7.9-10.8) H 05/12/21 05:15 Neut # (Auto) 9.9 10^3/uL (1.5-6.6) H 05/12/21 05:15 Lymph # (Auto) 1.0 10^3/uL (1.5-3.5) L 05/12/21 05:15 [place] # (Auto) 0.7 10^3/uL (0.0-1.0) 05/12/21 05:15 Eos # (Auto) 0.0 10^3/uL (0.0-0.7) 05/12/21 05:15 Baso # (Auto) 0.0 10^3/uL (0.0-0.1) 05/12/21 05:15 Absolute Nucleated RBC 0.02 x10^3/uL 05/12/21 05:15 Nucleated RBC % 0.2 /100WBC 05/12/21 05:15 Manual Slide Review Indicated 05/08/21 13:15 RBC Morph Micro Appear 2+ ANISOCYTOSIS (NORMAL) 05/08/21 13:15 Bld Gas Analysis Time 0504 05/09/21 04:56 Sample Site RIGHT RADIAL 05/09/21 04:56 ABG pH 7.27 (7.35-7.45) L 05/09/21 04:56 ABG pCO2 66 mmHg (34-45) H* 05/09/21 04:56 ABG pO2 84 mmHg (80-100) 05/09/21 04:56 ABG HCO3 29.2 mmol/L (22.0-26.0) H 05/09/21 04:56 ABG Total CO2 31.2 MMOL/L (21.0-29.0) H 05/09/21 04:56 ABG O2 Saturation 95 % (94-98) 05/09/21 04:56 ABG Base Excess 1.2 mmol/L (-2.0-3.0) 05/09/21 04:56 Brent Test POSITIVE 05/09/21 04:56 VBG pH 7.394 (7.31-7.41) 05/11/21 05:08 VBG pCO2 65.8 mmHg (41-51) H 05/08/21 15:10 VBG pO2 54.3 mmHg (25-47) H 05/08/21 15:10 VBG HCO3 27.0 mmol/L (23-28) 05/08/21 15:10 VBG Total CO2 29.0 mmol/L (24-29) 05/08/21 15:10 VBG O2 Saturation 85.9 % (60-80) H 05/08/21 15:10 VBG Base Excess -1.5 mmol/L (-2 - +2) 05/08/21 15:10 Ionized Calcium 1.16 mmol/L (1.15-1.33) 05/11/21 05:08 Respiration Rate 10 b/min 05/09/21 04:56 O2 Delivery Device BiPAP 05/09/21 04:56 FiO2 40.00 05/09/21 04:56 EPAP 8 cmH2O 05/09/21 04:56 IPAP 16 cmH2O 05/09/21 04:56 Sodium 140 mmol/L (135-145) 05/12/21 05:15 Potassium 4.5 mmol/L (3.5-5.0) 05/12/21 05:15 Chloride 99 mmol/L (101-111) L 05/12/21 05:15 Carbon Dioxide 28 mmol/L (21-32) 05/12/21 05:15 Anion Gap 13.0 (6-13) 05/12/21 05:15 BUN 51 mg/dL (6-20) H 05/12/21 05:15 Creatinine 1.1 mg/dL (0.4-1.0) H 05/12/21 05:15 Estimated GFR (MDRD) 50 (>89) L 05/12/21 05:15 Glucose 211 mg/dL (70-100) H 05/12/21 05:15 Estimat Average Glucose 140 mg/dL (70-100) H 05/09/21 04:25 Hemoglobin A1c % 6.5 % (4.27-6.07) H 05/09/21 04:25 Lactic Acid 1.3 mmol/L (0.5-2.2) 05/10/21 21:15 Calcium 9.5 mg/dL (8.5-10.3) 05/12/21 05:15 Phosphorus 2.2 mg/dL (2.5-4.6) L 05/12/21 05:15 Magnesium 2.3 mg/dL (1.7-2.8) 05/12/21 05:15 Total Bilirubin 0.3 mg/dL (0.2-1.0) 05/10/21 21:15 Direct Bilirubin 0.1 mg/dL (0.1-0.5) 05/10/21 21:15 AST 37 IU/L (10-42) 05/10/21 21:15 ALT 31 IU/L (10-60) 05/10/21 21:15 Alkaline Phosphatase 65 IU/L (42-121) 05/10/21 21:15 Troponin I High Sens 26.3 ng/L (2.3-14.8) H* 05/10/21 21:15 B-Natriuretic Peptide 106 pg/mL (5-100) H 05/08/21 13:15 Total Protein 7.8 g/dL (6.7-8.2) 05/10/21 21:15 Albumin 3.9 g/dL (3.2-5.5) 05/10/21 21:15 Globulin 3.9 g/dL (2.1-4.2) 05/10/21 21:15 Lipase 20 U/L (22-51) L 05/10/21 21:15 TSH 0.84 uIU/mL (0.34-5.60) 05/09/21 06:46 Nasal Screen MRSA (PCR) NEGATIVE (NEGATIVE) 05/08/21 16:50
[2021-05-12] MEDS: amLODIPine 5 MG TABLET PO SCH (21:38)
[2021-05-12] MEDS: MONTELUKAST 10 MG TABLET PO SCH (21:38)
[2021-05-12] MEDS: ATORVASTATIN 40 MG TABLET PO SCH (21:39)
[2021-05-12] MEDS: SERTRALINE 50 MG TABLET PO SCH (21:39)
[2021-05-13] MEDS: SODIUM CHLORIDE FLUSH 0.9% 10 ML SYRINGE IVP SCH ×3 (01:21→17:25)
[2021-05-13] MEDS: MORPHINE 2 MG/ML CARPUJECT IVP PRN (02:07)
[2021-05-13] MEDS: methylPREDNISolone SUCCINATE 125 MG/2 ML VIAL IVP SCH ×3 (06:36→21:50)
[2021-05-13] MEDS: SODIUM CHLORIDE FLUSH 0.9% 10 ML SYRINGE IVP PRN (06:36)
[2021-05-13] MEDS: LIOTHYRONINE 25 MCG TABLET PO SCH (06:37)
[2021-05-13] MEDS: LEVOTHYROXINE 125 MCG TABLET PO SCH (06:37)
[2021-05-13] MEDS: FUROSEMIDE 40 MG/4 ML VIAL IVP SCH ×2 (06:38→14:05)
[2021-05-13] MEDS: INSULIN ASPART 300 UNIT/3 ML PEN SUBQ SCH ×4 (08:57→20:42)
[2021-05-13] MEDS: POTASSIUM CHLORIDE 10 MEQ CAPSULE PO SCH (08:58)
[2021-05-13] MEDS: amLODIPine 5 MG TABLET PO SCH (08:58)
[2021-05-13] MEDS: CHOLECALCIFEROL 5,000 UNIT CAPSULE PO SCH (08:58)
[2021-05-13] MEDS: MELOXICAM 7.5 MG TABLET PO SCH (08:58)
[2021-05-13] MEDS: METHADONE 5 MG TABLET PO SCH ×2 (08:58→20:33)
[2021-05-13] MEDS: NEUTRA-PHOS 250 MG TABLET PO SCH (08:58)
[2021-05-13] MEDS: lisinopriL 20 MG TABLET PO SCH (08:58)
[2021-05-13] MEDS: PREGABALIN 25 MG CAPSULE PO SCH ×2 (08:58→20:33)
[2021-05-13] MEDS: guaiFENesin 600 MG TABLET PO SCH ×2 (08:58→20:33)
[2021-05-13] MEDS: NYSTATIN POWDER 15 GM TOP SCH ×2 (08:59→20:48)
[2021-05-13] MEDS: FAMOTIDINE 20 MG TABLET PO SCH ×2 (08:59→20:33)
[2021-05-13] MEDS: ENOXAPARIN 100 MG/ML SYRINGE SUBQ SCH ×2 (08:59→20:34)
[2021-05-13] MEDS: polyethylene glycoL 3350 17 GM PACKET PO SCH (09:03)
[2021-05-13] MEDS: BUDESONIDE 0.5 MG/2 ML NEB INH SCH ×2 (12:28→19:07)
[2021-05-13] MEDS: oxyCODONE 5 MG TABLET PO PRN (14:05)
--- NOTE | 2021-05-13 15:01 | PROVIDER PROGRESS NOTE ---
Subjective - Prog Note Date Prog Note Date: 05/13/21 Prog Note Time: 15:00 - Subjective Pt reports feeling: No change Subjective: She feels like she can finally breathe again. She does not feel nearly as short of breath or as "drowning" as she did when she came in. She is down to 1 L of nasal cannula and oxygenating at 96%. She has occasional dysphagia with the pills that she takes. She will swallow them just fine but and they feel like they get stuck in her upper esophagus. She is working with physical therapy but likes to take her oxygen off when she does it. Physical therapy feels she will need a walker to go home on and would also like her to have home health physical therapy and Occupational Therapy. Occupational Therapy states that there is a definite cognitive deficit that needs to be worked on. She denies chest pain, cough, just exhausted. Wishes she could just sit in her chair and be left alone. Current Medications - Current Medications Current Medications: Active Medications Acetaminophen (Acetaminophen 325 Mg Tablet) 650 mg PO Q4HR PRN PRN Reason: Pain or Fever > 38C (100.4F) Albuterol (Albuterol Neb 2.5 Mg/3 Ml) 2.5 mg INH Q4HR PRN PRN Reason: Wheezing Last Admin: 05/12/21 21:10 Dose: 2.5 mg Documented by: Amlodipine Besylate (Amlodipine 5 Mg Tablet) 5 mg PO DAILY [facility] Last Admin: 05/13/21 08:58 Dose: 5 mg Documented by: Atorvastatin Calcium (Atorvastatin 40 Mg Tablet) 40 mg PO QPM [facility] Last Admin: 05/12/21 21:39 Dose: 40 mg Documented by: Budesonide (Budesonide 0.5 Mg/2 Ml Neb) 0.5 mg INH RTBID [facility] Last Admin: 05/13/21 12:28 Dose: 0.5 mg Documented by: Cholecalciferol (Cholecalciferol 5,000 Unit Capsule) 5,000 unit PO DAILY [facility] Last Admin: 05/13/21 08:58 Dose: 5,000 unit Documented by: Enoxaparin Sodium (Enoxaparin 100 Mg/Ml Syringe) 100 mg SUBQ BID [facility] Last Admin: 05/13/21 08:59 Dose: 100 mg Documented by: Famotidine (Famotidine 20 Mg Tablet) 20 mg PO BID [facility] Last Admin: 05/13/21 08:59 Dose: 20 mg Documented by: Furosemide (Furosemide 40 Mg/4 Ml Vial) 40 mg IVP BIDDIURETIC [facility] Last Admin: 05/13/21 14:05 Dose: 40 mg Documented by: Guaifenesin (Guaifenesin 600 Mg Tablet) 600 mg PO BID [facility] Last Admin: 05/13/21 08:58 Dose: 600 mg Documented by: Hydroxyzine Pamoate (Hydroxyzine Pamoate 25 Mg Capsule) 50 mg PO QID PRN PRN Reason: ITCHING Last Admin: 05/12/21 03:20 Dose: 50 mg Documented by: Insulin Aspart (Insulin Aspart 300 Unit/3 Ml Pen) 3 - 11 unit SUBQ 0800,1200,1700,2100 [facility]; Protocol Last Admin: 05/13/21 12:39 Dose: 7 unit Documented by: Levothyroxine Sodium (Levothyroxine 125 Mcg Tablet) 125 mcg PO QDAC [facility] Last Admin: 05/13/21 06:37 Dose: 125 mcg Documented by: Liothyronine Sodium (Liothyronine 25 Mcg Tablet) 25 mcg PO QDAC [facility] Last Admin: 05/13/21 06:37 Dose: 25 mcg Documented by: Lisinopril (Lisinopril 20 Mg Tablet) 20 mg PO DAILY [facility] Last Admin: 05/13/21 08:58 Dose: 20 mg Documented by: Meloxicam (Meloxicam 7.5 Mg Tablet) 15 mg PO DAILY [facility] Last Admin: 05/13/21 08:58 Dose: 15 mg Documented by: Methadone HCl (Methadone 5 Mg Tablet) 10 mg PO BID [facility] Last Admin: 05/13/21 08:58 Dose: 10 mg Documented by: Methylprednisolone Sodium Succinate (Methylprednisolone Succinate 125 Mg/2 Ml Vial) 80 mg IVP Q8HR [facility] Last Admin: 05/13/21 14:05 Dose: 80 mg Documented by: Montelukast Sodium (Montelukast 10 Mg Tablet) 10 mg PO QPM [facility] Last Admin: 05/12/21 21:38 Dose: 10 mg Documented by: Morphine Sulfate (Morphine 2 Mg/Ml Carpuject) 2 mg IVP Q2HR PRN PRN Reason: Dyspnea Last Admin: 05/13/21 02:07 Dose: 2 mg Documented by: Nystatin (Nystatin Powder 15 Gm) 1 applic TOP BID [facility] Last Admin: 05/13/21 08:59 Dose: Not Given Documented by: Ondansetron HCl (Ondansetron 4 Mg/2 Ml Vial) 4 mg IVP Q6HR PRN PRN Reason: Nausea / Vomiting Oxycodone HCl (Oxycodone 5 Mg Tablet) 10 mg PO Q4H PRN PRN Reason: PAIN Last Admin: 05/13/21 14:05 Dose: 10 mg Documented by: Polyethylene Glycol (Polyethylene Glycol 3350 17 Gm Packet) 17 gm PO DAILY [facility] Last Admin: 05/13/21 09:03 Dose: 17 gm Documented by: Potassium Chloride (Potassium Chloride 10 Meq Capsule) 10 meq PO DAILYWM [facility] Last Admin: 05/13/21 08:58 Dose: 10 meq Documented by: Pregabalin (Pregabalin 25 Mg Capsule) 50 mg PO BID [facility] Last Admin: 05/13/21 08:58 Dose: 50 mg Documented by: Sertraline HCl (Sertraline 50 Mg Tablet) 150 mg PO HS [facility] Last Admin: 05/12/21 21:39 Dose: 150 mg Documented by: Sodium Chloride (Sodium Chloride Flush 0.9% 10 Ml Syringe) 10 ml IVP 0100,0900,1700 [facility] Last Admin: 05/13/21 08:59 Dose: 10 ml Documented by: Sodium Chloride (Sodium Chloride Flush 0.9% 10 Ml Syringe) 10 ml IVP PRN PRN PRN Reason: NEEDED PER PROVIDER ORDERS Last Admin: 05/13/21 06:36 Dose: 10 ml Documented by: Levothyroxine [Synthroid] 125 mcg PO QDAC 10/07/13 Lisinopril 20 mg PO DAILY 02/12/15 Methadone HCl 10 mg PO BID 02/12/15 Meloxicam 15 mg PO DAILY 08/04/16 Potassium Chloride [Klor-Con 10] 10 meq PO DAILY 09/09/18 Sertraline HCl 150 mg PO HS 09/09/18 Metformin HCl [Metformin ER Gastric] 500 mg PO BID 03/30/20 Oxycodone HCl/Acetaminophen [Percocet 10-325 mg Tablet] 1 each PO Q4H PRN 05/29/20 Pregabalin [Lyrica] 50 mg PO BID 05/29/20 Cholecalciferol [Vitamin D3] 5,000 units PO DAILY 09/07/20 Vitamin B Complex/Folic Acid [B-Complex Tablet] 1 tab PO DAILY 09/07/20 hydrOXYzine HCL [Hydroxyzine HCl] 50 mg PO QID PRN 09/07/20 Atorvastatin Calcium 40 mg PO QPM 05/08/21 Furosemide [Lasix] 60 mg PO DAILY 05/08/21 Liothyronine [Cytomel] 25 mcg PO QDAC 05/08/21 Objective - Vital Signs/Intake & Output Reviewed Vital Signs: Yes Vital Signs: Vital Signs x48h Temp Pulse Pulse Resp BP Pulse Ox 05/13/21 13:00 36.8 C 94 20 100 05/13/21 12:28 71 18 05/13/21 09:08 96 05/13/21 08:10 36.7 C 88 20 178/89 H 2 L Intake & Output: Intake & Output 05/10/21 05/11/21 05/12/21 05/13/21 23:59 23:59 23:59 23:59 Intake Total 3510 1010 1080 440 Output Total 3350 200 Balance 531 179 5347 440 - Objective General Appearance: positive: No acute distress, Alert, Other (slow moving, sitting in chair, speaking in full sentences but looks exhausted, very obese large lady) Eyes Bilateral: positive: PERRL, EOMI ENT: positive: No signs of dehydration Neck: positive: No JVD. negative: Stiff neck Respiratory: positive: No respiratory distress Abdomen: positive: Non-tender, Nml bowel sounds, No distention, Other (large ob kiya panus, can't assess for organomegaly) Skin: positive: Warm, Dry Extremities: positive: Full ROM, Pedal edema Neurologic/Psychiatric: positive: Oriented x3, CN's nml (2-12), Motor nml (but weak and needs assist.) - Lab Results Fish Bones: 05/12/21 05:15 05/12/21 05:15 Assessment/Plan - Problem List (1) Acute respiratory failure with hypoxia Impression: Assessment/Plan: Etiology is a COPD exacerbation probably related to the parainfluenza infection, and volume overload . Chest x-ray had diffuse pulmonary vascular congestion and interstitial prominences. She has had 3 chest x-rays overall and has not really improved with the last chest x-ray May 12. The patient is currently on nasal cannula 1 liter. Yesterday she was on 4 liters, s/p BiPAP with supplemental oxygen in the ICU for a day. We will continue with supplemental oxygen, and bring level down to 1 liter today, sats of 88-92 are acceptable. We are treating COPD and diastolic heart failure. We did an overnight oximetry and she did dip below 85% during sleep. She needs an official sleep study and CPAP for NAA as well. She tells me that she wakes herself up with cough and sob at times that frighten her. She thinks she will followthru once she gets out of here. Once she has no 02 requirement, plan for dc. I anticipate soon since 02 requirement dropped quite a bit from yesterday to today. (2) CO2 retention Assessment/Plan: Resolved after wearing BiPAP in the ICU The daughter Maryanne reported that the patient has had witnessed apnea but has never had a sleep study and does not use a CPAP machine. Also her COPD may give her chronic CO2 retention. We did an overnight oximetry and she did dip below 85% during sleep. Plan is for sleep study in the outpatient setting (3) Word finding difficulty Assessment/Plan: She had word finding difficulty and a head CT was done that showed no stroke or abnormality. This happens when she speaks about her recently grandson, she reported. (He was 19 y/o and 1 month ago of CO2 poisoning from car exhaust fumes, was found in his car). The daughter reported that there were other times that her memory was por, thus she had a cognitive eval by OT today and scored fairly well. Therefore, perhaps these are times of grief reaction. (4) Parainfluenza virus infection Assessment/Plan: As per lab results Droplet precautions are ordered. (5) COPD exacerbation Assessment/Plan: The daughter Maryanne said the patient has definitely been diagnosed with COPD which the patient did not remember. The patient does confirm that she uses inhalers at home. We will continue with IV steroids, nebs and Mucinex. She finished an empiric course of Zithromax. Wean supplemental O2 down when possible, keeping sats 88-92%. (6) Acute on chronic diastolic heart failure Assessment/Plan: An Echo with Definity showed normal systolic function and diastolic dysfunction. The patient was able to recall that she has had Echoes done in 2 other locations that also showed normal systolic function. She stated she is on her Lasix only for her chronic leg edema. The Echo also showed cor pulmonale from lung disease or from obesity, which may give her chronic leg edema. She was changed from po to IV lasix. Right now output is not being recorded. So I do not know if the Lasix worked. Weight was 217 on admission. When Lasix was changed to IV she was 212 kg yesterday and she has 212 kg today. She also needs Morphine prn dyspnea. (7) MILLIE (acute kidney injury) Assessment/Plan: The BUN/creatinine are elevated Avoid nephrotoxins, the FRANTZ inhibitor and her Metformin have not been resumed. Follow BMP daily. On admission she was 41 and 1.3. With fluid shifts, diuresis, today she is 51 and 1.1. (8) Morbid obesity with BMI of 60.0-69.9, adult Assessment/Plan: As per Hx. Nutrition consult requested regarding diet (9) Diabetes mellitus Assessment/Plan: Her A1c is very good at 6.5. Metformin is on hold because of elevated creatinine. Glucose is climbing on steroids. She is on a carb controlled diet and sliding scale coverage insulin. I will add lantus for tonight. (10) Hypothyroidism Assessment/Plan: Her TSH is in a normal range, at 0.89. We are continuing her home thyroid dose. (11) Open wound, lower leg Assessment/Plan: She reported that she is not on chronic antibiotics, only gets these when she "absolutely needs them". She reports having a home health nurse come to her home during the week to change the bandages. Currently only the left coates was bandaged. (12) Chronic pain syndrome Assessment/Plan: She gets panicky when her pain meds, especially Methadone dose is late. We are continuing her usual pain management medications. Due to deconditioning and loss of strength will order Home Health PT, OT (for cog deficit)
[2021-05-13] MEDS: ALBUTEROL NEB 2.5 MG/3 ML INH PRN ×2 (19:07→20:58)
[2021-05-13] MEDS: ATORVASTATIN 40 MG TABLET PO SCH (20:33)
[2021-05-13] MEDS: SERTRALINE 50 MG TABLET PO SCH (20:33)
[2021-05-13] MEDS: MONTELUKAST 10 MG TABLET PO SCH (20:34)
[2021-05-13] MEDS: INSULIN GLARGINE 300 UNIT/3 ML PEN SUBQ SCH (20:44)
[2021-05-14] MEDS: oxyCODONE 5 MG TABLET PO PRN ×4 (01:08→23:53)
[2021-05-14] MEDS: SODIUM CHLORIDE FLUSH 0.9% 10 ML SYRINGE IVP SCH ×4 (01:09→23:53)
[2021-05-14] MEDS: methylPREDNISolone SUCCINATE 125 MG/2 ML VIAL IVP SCH (06:08)
[2021-05-14] MEDS: LIOTHYRONINE 25 MCG TABLET PO SCH (06:08)
[2021-05-14] MEDS: LEVOTHYROXINE 125 MCG TABLET PO SCH (06:08)
[2021-05-14] MEDS: FUROSEMIDE 40 MG/4 ML VIAL IVP SCH ×2 (06:10→13:45)
[2021-05-14] MEDS: lisinopriL 20 MG TABLET PO SCH (08:02)
[2021-05-14] MEDS: POTASSIUM CHLORIDE 10 MEQ CAPSULE PO SCH (08:02)
[2021-05-14] MEDS: MELOXICAM 7.5 MG TABLET PO SCH (08:02)
[2021-05-14] MEDS: guaiFENesin 600 MG TABLET PO SCH ×2 (08:02→21:27)
[2021-05-14] MEDS: polyethylene glycoL 3350 17 GM PACKET PO SCH (08:03)
[2021-05-14] MEDS: METHADONE 5 MG TABLET PO SCH ×2 (08:03→21:27)
[2021-05-14] MEDS: CHOLECALCIFEROL 5,000 UNIT CAPSULE PO SCH (08:03)
[2021-05-14] MEDS: PREGABALIN 25 MG CAPSULE PO SCH ×2 (08:03→21:26)
[2021-05-14] MEDS: FAMOTIDINE 20 MG TABLET PO SCH ×2 (08:03→21:27)
[2021-05-14] MEDS: amLODIPine 5 MG TABLET PO SCH (08:03)
[2021-05-14] MEDS: ENOXAPARIN 100 MG/ML SYRINGE SUBQ SCH ×2 (08:04→21:32)
[2021-05-14] MEDS: INSULIN ASPART 300 UNIT/3 ML PEN SUBQ SCH ×4 (08:07→21:27)
[2021-05-14] MEDS: NYSTATIN POWDER 15 GM TOP SCH ×2 (08:08→21:27)
--- NOTE | 2021-05-14 14:22 | PROVIDER PROGRESS NOTE ---
Subjective - Prog Note Date Prog Note Date: 05/14/21 Prog Note Time: 14:20 - Subjective Pt reports feeling: Improved Subjective: She is ambulating in the room. Slowly, with standby assist, but able to do so. She is now 95% to 96% room air. She was 217 kg on admission. She is 210.6 kg today. Eating 100% of breakfast lunch and dinner. Current Medications - Current Medications Current Medications: Active Medications Acetaminophen (Acetaminophen 325 Mg Tablet) 650 mg PO Q4HR PRN PRN Reason: Pain or Fever > 38C (100.4F) Last Admin: 05/14/21 08:03 Dose: 650 mg Documented by: Albuterol (Albuterol Neb 2.5 Mg/3 Ml) 2.5 mg INH Q4HR PRN PRN Reason: Wheezing Last Admin: 05/13/21 20:58 Dose: 2.5 mg Documented by: Amlodipine Besylate (Amlodipine 5 Mg Tablet) 5 mg PO DAILY [facility] Last Admin: 05/14/21 08:03 Dose: 5 mg Documented by: Atorvastatin Calcium (Atorvastatin 40 Mg Tablet) 40 mg PO QPM [facility] Last Admin: 05/13/21 20:33 Dose: 40 mg Documented by: Budesonide (Budesonide 0.5 Mg/2 Ml Neb) 0.5 mg INH RTBID [facility] Last Admin: 05/13/21 19:07 Dose: 0.5 mg Documented by: Cholecalciferol (Cholecalciferol 5,000 Unit Capsule) 5,000 unit PO DAILY [facility] Last Admin: 05/14/21 08:03 Dose: 5,000 unit Documented by: Enoxaparin Sodium (Enoxaparin 100 Mg/Ml Syringe) 100 mg SUBQ BID [facility] Last Admin: 05/14/21 08:04 Dose: 100 mg Documented by: Famotidine (Famotidine 20 Mg Tablet) 20 mg PO BID [facility] Last Admin: 05/14/21 08:03 Dose: 20 mg Documented by: Furosemide (Furosemide 40 Mg/4 Ml Vial) 40 mg IVP BIDDIURETIC [facility] Last Admin: 05/14/21 13:45 Dose: 40 mg Documented by: Guaifenesin (Guaifenesin 600 Mg Tablet) 600 mg PO BID [facility] Last Admin: 05/14/21 08:02 Dose: 600 mg Documented by: Hydroxyzine Pamoate (Hydroxyzine Pamoate 25 Mg Capsule) 50 mg PO QID PRN PRN Reason: ITCHING Last Admin: 05/12/21 03:20 Dose: 50 mg Documented by: Insulin Aspart (Insulin Aspart 300 Unit/3 Ml Pen) 3 - 11 unit SUBQ 0800,1200,1700,2100 [facility]; Protocol Last Admin: 05/14/21 11:54 Dose: 9 unit Documented by: Insulin Glargine (Insulin Glargine 300 Unit/3 Ml Pen) 10 unit SUBQ QPM [facility] Last Admin: 05/13/21 20:44 Dose: 10 unit Documented by: Levothyroxine Sodium (Levothyroxine 125 Mcg Tablet) 125 mcg PO QDAC [facility] Last Admin: 05/14/21 06:08 Dose: 125 mcg Documented by: Liothyronine Sodium (Liothyronine 25 Mcg Tablet) 25 mcg PO QDAC [facility] Last Admin: 05/14/21 06:08 Dose: 25 mcg Documented by: Lisinopril (Lisinopril 20 Mg Tablet) 20 mg PO DAILY [facility] Last Admin: 05/14/21 08:02 Dose: 20 mg Documented by: Meloxicam (Meloxicam 7.5 Mg Tablet) 15 mg PO DAILY [facility] Last Admin: 05/14/21 08:02 Dose: 15 mg Documented by: Methadone HCl (Methadone 5 Mg Tablet) 10 mg PO BID [facility] Last Admin: 05/14/21 08:03 Dose: 10 mg Documented by: Montelukast Sodium (Montelukast 10 Mg Tablet) 10 mg PO QPM [facility] Last Admin: 05/13/21 20:34 Dose: 10 mg Documented by: Morphine Sulfate (Morphine 2 Mg/Ml Carpuject) 2 mg IVP Q2HR PRN PRN Reason: Dyspnea Last Admin: 05/13/21 02:07 Dose: 2 mg Documented by: Nystatin (Nystatin Powder 15 Gm) 1 applic TOP BID [facility] Last Admin: 05/14/21 08:08 Dose: Not Given Documented by: Ondansetron HCl (Ondansetron 4 Mg/2 Ml Vial) 4 mg IVP Q6HR PRN PRN Reason: Nausea / Vomiting Oxycodone HCl (Oxycodone 5 Mg Tablet) 10 mg PO Q4H PRN PRN Reason: PAIN Last Admin: 05/14/21 13:45 Dose: 10 mg Documented by: Polyethylene Glycol (Polyethylene Glycol 3350 17 Gm Packet) 17 gm PO DAILY [facility] Last Admin: 05/14/21 08:03 Dose: 17 gm Documented by: Potassium Chloride (Potassium Chloride 10 Meq Capsule) [facility] [place] Last Admin: 05/14/21 08:02 Dose: 10 meq Documented by: Prednisone (Prednisone 20 Mg Tablet) 40 mg PO ONCE ONE Stop: 05/15/21 08:01 Prednisone (Prednisone 10 Mg Tablet) 30 mg PO ONCE ONE Stop: 05/16/21 08:01 Prednisone (Prednisone 20 Mg Tablet) 20 mg PO ONCE ONE Stop: 05/17/21 08:01 Prednisone (Prednisone 5 Mg Tablet) 15 mg PO ONCE ONE Stop: 05/18/21 08:01 Prednisone (Prednisone 10 Mg Tablet) 10 mg PO ONCE ONE Stop: 05/19/21 08:01 Prednisone (Prednisone 5 Mg Tablet) 5 mg PO ONCE ONE Stop: 05/20/21 08:01 Pregabalin (Pregabalin 25 Mg Capsule) 50 mg PO BID [facility] Last Admin: 05/14/21 08:03 Dose: 50 mg Documented by: Sertraline HCl (Sertraline 50 Mg Tablet) [address] [facility] Last Admin: 05/13/21 20:33 Dose: 150 mg Documented by: Sodium Chloride (Sodium Chloride Flush 0.9% 10 Ml Syringe) 10 ml IVP 0100,0900,1700 [facility] Last Admin: 05/14/21 08:04 Dose: 10 ml Documented by: Sodium Chloride (Sodium Chloride Flush 0.9% 10 Ml Syringe) 10 ml IVP PRN PRN PRN Reason: NEEDED PER PROVIDER ORDERS Last Admin: 05/13/21 06:36 Dose: 10 ml Documented by: Levothyroxine [Synthroid] 125 mcg PO QDAC 10/07/13 Lisinopril 20 mg PO DAILY 02/12/15 Methadone HCl 10 mg PO BID 02/12/15 Meloxicam 15 mg PO DAILY 08/04/16 Potassium Chloride [Klor-Con 10] 10 meq PO DAILY 09/09/18 Sertraline HCl 150 mg PO HS 09/09/18 Metformin HCl [Metformin ER Gastric] 500 mg PO BID 03/30/20 Oxycodone HCl/Acetaminophen [Percocet 10-325 mg Tablet] 1 each PO Q4H PRN 05/29/20 Pregabalin [Lyrica] 50 mg PO BID 05/29/20 Cholecalciferol [Vitamin D3] 5,000 units PO DAILY 09/07/20 Vitamin B Complex/Folic Acid [B-Complex Tablet] 1 tab PO DAILY 09/07/20 hydrOXYzine HCL [Hydroxyzine HCl] 50 mg PO QID PRN 09/07/20 Atorvastatin Calcium 40 mg PO QPM 05/08/21 Furosemide [Lasix] 60 mg PO DAILY 05/08/21 Liothyronine [Cytomel] 25 mcg PO QDAC 05/08/21 Objective - Vital Signs/Intake & Output Reviewed Vital Signs: Yes Vital Signs: Vital Signs x48h Temp Pulse Pulse Resp BP Pulse Ox 05/14/21 12:15 36.3 C L 72 20 171/82 H 96 05/14/21 08:50 79 23 05/14/21 07:29 36.5 C 52 L 22 183/88 H 95 Intake & Output: Intake & Output 05/11/21 05/12/21 05/13/21 05/14/21 23:59 23:59 23:59 23:59 Intake Total 1010 1080 1920 1190 Output Total 200 2126 Balance 810 1080 1920 -936 - Objective General Appearance: positive: Alert, Other (Pleasant, super obese white female, sitting up in her chair. 5 foot 10 inches tall and weighing 210.7 kg) Eyes Bilateral: positive: PERRL, EOMI ENT: positive: No signs of dehydration Neck: positive: No JVD. negative: Stiff neck Respiratory: positive: No respiratory distress, Other (Lung sounds diminished at bases but no tachypnea, able to complete full sentences, does appear tired). negative: Wheezes, Rales, Rhonchi Cardiovascular: positive: Regular rate & rhythm. negative: Gallop/S4 Abdomen: positive: Non-tender, No organomegaly, Nml bowel sounds, No distention, Other (Large, protuberant pannus) Skin: positive: Warm, Dry Extremities: positive: Full ROM, Pedal edema Neurologic/Psychiatric: positive: Oriented x3, CN's nml (2-12), Motor nml - Lab Results Fish Bones: 05/12/21 05:15 05/12/21 05:15 ABX Reporting Has patient been on IV antibiotics over the past 48 hours?: Yes Assessment/Plan - Problem List (1) Acute respiratory failure with hypoxia Impression: Resolve as of today with acceptable room air 02 sat. She has quickly gone from 4 l to 1 liter to nothing in that last 48 hours. Etiology is a COPD exacerbation probably related to the parainfluenza infection, and volume overload . Chest x- ray had diffuse pulmonary vascular congestion and interstitial prominences. She has had 3 chest x-rays overall and has not really improved with the last chest x-ray May 12. s/p BiPAP with supplemental oxygen in the ICU for a day. We are treating COPD and diastolic heart failure. We did an overnight oximetry and she did dip below 85% during sleep. She needs an official sleep study and CPAP for NAA as well. She tells me that she wakes herself up with cough and sob at times that frighten her. She thinks she will followthru once she gets out of here. Now that she is on room air, she can be discharged but will require a BLS or transporation arrangements due to her size that require 24 hour notice. (2) CO2 retention Assessment/Plan: Resolved after wearing BiPAP in the ICU The daughter Maryanne reported that the patient has had witnessed apnea but has never had a sleep study and does not use a CPAP machine. Also her COPD may give her chronic CO2 retention. We did an overnight oximetry and she did dip below 85% during sleep. Plan is for sleep study in the outpatient setting (3) Word finding difficulty Assessment/Plan: She had word finding difficulty and a head CT was done that showed no stroke or abnormality. This happens when she speaks about her recently grandson, she reported. (He was 19 y/o and 1 month ago of CO2 poisoning from car exhaust fumes, was found in his car). The daughter reported that there were other times that her memory was poor, thus she had a cognitive eval by OT today and scored fairly well. Therefore, perhaps these are times of grief reaction. (4) Parainfluenza virus infection Assessment/Plan: As per lab results Droplet precautions are ordered. (5) COPD exacerbation Assessment/Plan: The daughter Maryanne said the patient has definitely been diagnosed with COPD which the patient did not remember. The patient does confirm that she uses inhalers at home. We will continue with IV steroids, nebs and Mucinex. She finished an empiric course of Zithromax. Wean supplemental O2 down when possible, keeping sats 88-92%. (6) Acute on chronic diastolic heart failure Assessment/Plan: An Echo with Definity showed normal systolic function and diastolic dysfunction. The patient was able to recall that she has [facility] [place] that also showed normal systolic function. She stated she is on her Lasix only for her chronic leg edema. The Echo also showed cor pulmonale from lung disease or from obesity, which may give her chronic leg edema. She was changed from po to IV lasix. Weight was 217 on admission. When Lasix was changed to IV she was 212 kg for 2 days and is now 210 kg. Change back to po lasix. She is on 60 mg po daily at home. Will aim for 60 mg po bid for a few days then she can go back to 60 mg a day. (7) MILLIE (acute kidney injury) Assessment/Plan: The BUN/creatinine are elevated Avoid nephrotoxins, the FRANTZ inhibitor and her Metformin have not been resumed. On admission she was 41 and 1.3. With fluid shifts, diuresis, she was 51 and 1.1. I did not order labs for today will do so and review. (8) Morbid obesity with BMI of 60.0-69.9, adult Assessment/Plan: As per Hx. Nutrition consult done. (9) Diabetes mellitus Assessment/Plan: Her A1c is very good at 6.5. Metformin is on hold because of elevated creatinine. Glucose is climbing on steroids. She is on a carb controlled diet and sliding scale coverage insulin. In spite of addition of Lantus 10 units at night, she was 218 this morning and 278 by lunchtime. We will increase Lantus to 15 units tonight. At home, she will resume her usual Metformin.In spite of addition of Lantus 10 units at night, she was 218 this morning and 278 by lunchtime. We will increase Lantus to 15 units tonight. At home, she will resume her usual Metformin. (10) Hypothyroidism Assessment/Plan: Her TSH is in a normal range, at 0.89. We are continuing her home thyroid dose. (11) Open wound, lower leg Assessment/Plan: She reported that she is not on chronic antibiotics, only gets these when she "absolutely needs them". She reports having a home health nurse come to her home during the week to change the bandages. Currently only the left coates was bandaged. (12) Chronic pain syndrome Assessment/Plan: She gets panicky when her pain meds, especially Methadone dose is late. We are continuing her usual pain management medications. Due to deconditioning and loss of strength will order Home Health PT, OT (for cog deficit) with today's PT note: Pt. is a pleasant, cooperative 60 y.o. F, admitted w/hypoxia and parainfluenza, on droplet precautions; she is presenting today w/good transfers to/from the chair w/good mobility; she is ambulatng w/her cane w/no loss of balance. Recommend pt. d/c home via w/c van and f/u w/HHPT.
[2021-05-14 15:45] LABS: CALCIUM 9.4 mg/dL (8.5-10.3); CREATININE 1.3 mg/dL (0.4-1.0); POTASSIUM 4.5 mmol/L (3.5-5.0)
[2021-05-14] MEDS: BUDESONIDE 0.5 MG/2 ML NEB INH SCH (19:36)
[2021-05-14] MEDS: ALBUTEROL NEB 2.5 MG/3 ML INH PRN (19:37)
[2021-05-14] MEDS: SERTRALINE 50 MG TABLET PO SCH (21:26)
[2021-05-14] MEDS: ATORVASTATIN 40 MG TABLET PO SCH (21:27)
[2021-05-14] MEDS: INSULIN GLARGINE 300 UNIT/3 ML PEN SUBQ SCH (21:28)
[2021-05-14] MEDS: MONTELUKAST 10 MG TABLET PO SCH (21:32)
[2021-05-15] MEDS: LIOTHYRONINE 25 MCG TABLET PO SCH (05:21)
[2021-05-15] MEDS: LEVOTHYROXINE 125 MCG TABLET PO SCH (05:21)
[2021-05-15] MEDS: oxyCODONE 5 MG TABLET PO PRN (05:21)
[2021-05-15] MEDS: FUROSEMIDE 40 MG/4 ML VIAL IVP SCH (05:22)
[2021-05-15] MEDS: SODIUM CHLORIDE FLUSH 0.9% 10 ML SYRINGE IVP SCH (05:22)
[2021-05-15 06:07] LABS: CALCIUM 9.1 mg/dL (8.5-10.3); POTASSIUM 3.8 mmol/L (3.5-5.0)
[2021-05-15] MEDS: BUDESONIDE 0.5 MG/2 ML NEB INH SCH ×2 (07:21→08:57)
[2021-05-15] MEDS: ALBUTEROL NEB 2.5 MG/3 ML INH PRN (07:22)
[2021-05-15] MEDS ORDERED: predniSONE 20 MG TABLET PO ONE (08:00)
[2021-05-15] MEDS: polyethylene glycoL 3350 17 GM PACKET PO SCH (08:56)
[2021-05-15] MEDS: METHADONE 5 MG TABLET PO SCH (08:56)
[2021-05-15] MEDS: guaiFENesin 600 MG TABLET PO SCH (08:57)
[2021-05-15] MEDS: PREGABALIN 25 MG CAPSULE PO SCH (08:57)
[2021-05-15] MEDS: POTASSIUM CHLORIDE 10 MEQ CAPSULE PO SCH (08:57)
[2021-05-15] MEDS: NYSTATIN POWDER 15 GM TOP SCH (08:57)
[2021-05-15] MEDS: FAMOTIDINE 20 MG TABLET PO SCH (08:57)
[2021-05-15] MEDS: ENOXAPARIN 100 MG/ML SYRINGE SUBQ SCH (08:57)
[2021-05-15] MEDS: MELOXICAM 7.5 MG TABLET PO SCH (08:57)
[2021-05-15] MEDS: INSULIN ASPART 300 UNIT/3 ML PEN SUBQ SCH ×2 (08:58→12:09)
[2021-05-15] MEDS: CHOLECALCIFEROL 5,000 UNIT CAPSULE PO SCH (09:55)
--- NOTE | 2021-05-15 10:43 | Discharge Plan ---
Discharge Plan Problem Reviewed?: Yes Disposition: Home Health Service Condition: Fair Prescriptions: amLODIPine [Norvasc] 5 mg PO DAILY #30 tablet Nystatin [Nystop] 1 applic TOP BID #2 bottle Diet: Diabetic Activity Restrictions: Activity as Tolerated Shower Restrictions: No Driving Restrictions: Yes (no driving) Assistance Devices: Walker Instruction Topics: Sleep Study Ch, Apnea Obstructive Sleep Ch, Obesity Doctor Health Concerns: You came to our emergency room with symptoms of coughing, sneezing, congestion and tested positive for parainfluenza. You were negative for Covid. You were sent home on doxycycline but you came back severely short of breath and very low on your oxygen. As such we had to put you in the intensive care unit and use a facemask that pressurized air to be put into your lungs. Because you have asthma/COPD you required steroid medicine, nebulizers as well. You now have normal oxygen on room air. Plan of Treatment: 1. You need to be seen by your primary care provider in the next 1 to 2 weeks. She will need to follow-up on your lung exam, and how your breathing is doing. 2. Your primary care provider needs to refer you to the sleep center for obstructive sleep apnea and obesity hypoventilation syndrome. 3. You need to finish antibiotics for pneumonia. You will be taking amoxicillin 500 mg 3 times a day for 6 more doses. Then you will be done. 4. We will be sending you home with physical therapy and Occupational Therapy per the recommendations of the therapist here at the hospital. You will need some strengthening exercises. 5. Your family members have tested for positive for Covid. So you will be going home to stay with your son who is Covid negative. You should always wear a facemask when in contact with your family members, and also wear a facemask when you leave your house. Care Goals: Your overall care goals are to finish treatment for pneumonia. You are also expressing interest in seeing a bariatric surgeon so that you can lose weight, and thereby hopefully avoid the need for a face mask for the rest of your life for obstructive sleep apnea. Assessment: She understands plan, and will follow through. She will be sent home with BLS to help with mobility into the house. Follow-Up Care: Home Health - RN, Home Health - PT No Smoking: If you smoke, Please STOP! Call for help. Follow-up with: Jennifer Castelan ARNP [Primary Care Provider] -
--- NOTE | 2021-05-15 10:55 | DISCHARGE SUMMARY ---
Discharge Summary Admit Date: 05/08/21 Discharge Date: 05/15/21 Discharging Provider: Eulalia Gaspar MD Primary Care Provider: SAM Ramirez Code Status: Attempt Resuscitation Condition at Discharge: Fair Discharge Disposition: [address] [place] [address] Health Service - DIAGNOSES Discharge Diagnoses with Status of Each Condition: 1. Acute respiratory failure with hypoxia and hypercapnia 2. parainfluenza virus infection 3. Episodic word finding difficulty 4. Grief reaction 5. COPD exacerbation 6. Acute on chronic diastolic heart failure 7. Acute kidney injury 8. Morbid obesity with BMI 60-69 9. Diabetes mellitus 10. Hypothyroidism 11. Open wound, lower leg 12. Chronic pain syndrome 13. Suspected obstructive sleep apnea versus obesity hypoventilation syndrome - HPI History of Present Illness: This is a 60-year-old white female with morbid obesity (BMI 69), sleep apnea, diabetes mellitus on Metformin, chronic leg wounds, hypothyroidism on replacement, chronic pain syndrome on methadone and with "history of CHF" on Lasix (her last Echo here was 4 years ago showing diastolic heart failure). Patient was seen in the ED yesterday for shortness of breath, fever and URI but mostly her complaints were of worsened chronic pain due to a missed methadone dose. She tested positive for parainfluenza yesterday and had a WBC of 17, but had stable chest x-ray and was discharged home to take doxycycline. She got more short of breath today and presented to the ED this morning, saturations were 85% on room air, fever of 38.1 C and VBG shows pH of 7.26, PCO2 65. She required 15 L of suppl. oxygen and then was put on BiPAP and is being admitted to the ICU. She did report a cough with yellow sputum production. History - Past Medical History Cardiovascular: reports: Hypertension, Peripheral Vascular Disease Respiratory: reports: Asthma, Shortness of breath, Sleep apnea Neuro: reports: Migraines, Peripheral neuropathy Endocrine/Autoimmune: reports: Type 2 diabetes, HyPOthyroidism GI: reports: Hepatitis : reports: Incontinence, Nocturia, Frequency HEENT: reports: Chronic vision loss Psych: reports: Anxiety, Post traumatic stress disorder Musculoskeletal: reports: Osteoarthritis, Fibromyalgia, Chronic back pain Derm: reports: Other drug resistant infections, Herpes zoster MRSA Hx?: Yes - Past Surgical History Cardiovascular: reports: Other - CONSULTS | PROCEDURES Procedures: 1. 3 chest x-rays. All have shown cardiomegaly with increased vascularity consistent with edema. No acute infiltrate. 2. Head CT done for episodic word finding difficulties have no acute intracranial changes. 3. Abdomen pelvis CT done for vague, mild, generalized abdominal pain had dependent atelectasis and scarring in the lung bases. Calcified gallstone in the gallbladder neck. Without acute cholecystitis changes. Pancreas with mild fatty atrophy. Bowel normal thickness and caliber. Diverticulosis without diverticulitis. Bladder wall thickness normal. No hernias. 4. Sputum Gram stain without any significant organisms. 5. Preliminary echocardiogram is compared to previous echocardiogram and there are no changes. Left ventricle normal. Ejection fraction 60 to 65%. Pseudonormal LV filling consistent with grade 2 diastolic dysfunction and elevated left atrial pressure. Right ventricle not well visualized. Grossly normal size and systolic function. No significant valvular heart disease. Final report should be reviewed by primary care provider. - HOSPITAL COURSE Hospital Course: The patient was placed in ICU for 1 day with BiPAP. She was able to come off BiPAP once antibiotics, steroids and nebulizers took effect. With exertion her O2 sats were dropping to the 70s when she was transferred from ICU to [facility]. Over the course of the next few days, all supportive care was continued and her O2 sat gradually improved so that she no longer needed oxygen and was 95 to 96% room air saturation. Overnight oximetry was done because of episodes of apnea and she did dip below 85% during sleep. She is morbidly obese and recognizes that she probably has apnea, and also takes opioids plus methadone which may worsen this. But she has never had an official sleep study for this. She may also have obesity hypoventilation syndrome. She did have episodes of word finding difficulty and a CT of the head was done. It was negative. The daughter supplements mom's history by stating that mom has been having a very difficult time emotionally. One of her grandsons of carbon monoxide poisoning after falling asleep in a car. This was 1 month ago. Says she may be having a grief reaction. She was evaluated by Occupational Therapy for cognitive eval and scored well. Droplet precautions were used for her stay s manish she was positive for parainfluenza. She was felt to have acute on chronic diastolic heart failure and received Lasix. This was also felt to be contributing to cor pulmonale and leg edema. Acute kidney injury resolved. Her diabetes mellitus was controlled with sliding scale, carb controlled diet, and the addition of Lantus. We felt that her diabetes worsened due to steroid use. By the time of discharge her glucose was very well controlled, she is off steroids, and glucose is back to normal. I am asking her to resume her Metformin in a few days. Resume Lasix in a few days to allow her body to get to equilibrium. She was continued on her home thyroid medication, and her open wound of the lower leg was bandaged and changed. This was present on admission. Chronic pain syndrome was treated by resuming her usual home medications. We waited for oxygen levels to drift back to normal on room air. She is anxious about going home since her daughter and all of her children are now Covid positive. They will be leaving the house to move into a temporary housing arrangement. The patient will go home with her son who is Covid negative. Covid testing was done at discharge for the patient. We have encouraged her to make sure she maintains booster and vaccination status for Covid. That she wears a mask when she leaves the house or when she comes in contact with other family members. She will finish 2 more days of amoxicillin in the outpatient setting to complete empiric treatment for pneumonia. At discharge she is 5 foot 10 inches tall and weighs 206 kg. Temperature is 36.6. Heart rate 66. Blood pressure 138/66. Respirations 19 and 94% on room air. She is a morbidly obese, pleasant female who is sitting comfortably up in her chair watching TV or using her phone. No respiratory distress. Neck is difficult to assess for JVD due to her large size. But no adenopathy and is supple. She has diminished breath sounds at the bases but otherwise her lungs are completely clear without any increased respiratory effort with speaking or getting up. Regular rate and rhythm. Usually obese, large abdominal pannus. Difficult to assess for organomegaly but there are normal bowel sounds and no tenderness. Candidiasis underneath the pannus is being treated with nystatin. That will continue in the outpatient setting. Extremities have 1+ edema in her feet. She is able to sit up on her own and walk with standby assist to the chair or the bathroom. She will be sent home with physical therapy, home health. Greater than 30 minutes was spent coordinating discharge. - ALLERGIES Allergies/Adverse Reactions: Allergies Allergy/AdvReac Type Severity Reaction Status Date / Time Penicillins Allergy Rash Verified 05/07/21 15:52 Sulfa (Sulfonamide Allergy Rash Verified 05/07/21 15:52 Antibiotics) - MEDICATIONS Home Medications: Ambulatory Orders Medication Instructions Recorded Confirmed Levothyroxine [Synthroid] 125 mcg PO QDAC 10/07/13 05/08/21 Lisinopril 20 mg PO DAILY 02/12/15 05/08/21 Meloxicam 15 mg PO DAILY 08/04/16 05/08/21 Potassium Chloride [Klor-Con 10] 10 meq PO DAILY 09/09/18 05/08/21 Sertraline HCl 150 mg PO HS 09/09/18 05/08/21 Oxycodone HCl/Acetaminophen 1 each PO Q4H PRN 05/29/20 05/08/21 [Percocet 10-325 mg Tablet] Pregabalin [Lyrica] 50 mg PO BID 05/29/20 05/08/21 Cholecalciferol [Vitamin D3] 5,000 units PO DAILY 09/07/20 05/08/21 Vitamin B Complex/Folic Acid 1 tab PO DAILY 09/07/20 05/08/21 [B-Complex Tablet] hydrOXYzine HCL [Hydroxyzine HCl] 50 mg PO QID PRN 09/07/20 05/08/21 Albuterol Sulf [Ventolin Hfa 1 - 2 puffs INH Q4HR PRN #1 inhaler 04/26/21 05/08/21 Inhaler] Atorvastatin Calcium 40 mg PO QPM 05/08/21 05/08/21 Liothyronine [Cytomel] 25 mcg PO QDAC 05/08/21 05/08/21 Acetaminophen [Tylenol] 650 mg PO Q4HR PRN tablet 05/15/21 Furosemide [Lasix] 60 mg PO DAILY #0 05/15/21 05/08/21 Metformin HCl [Metformin ER 500 mg PO BID #0 05/15/21 05/08/21 Gastric] Methadone HCl 10 mg PO BID #0 05/15/21 05/08/21 Nystatin [Nystop] 1 applic TOP BID #2 bottle 05/15/21 amLODIPine [Norvasc] 5 mg PO DAILY #30 tablet 05/15/21 guaiFENesin [Mucinex] 600 mg PO BID tablet 05/15/21 - LABS Result Diagrams: 05/12/21 05:15 05/15/21 05:50
[2021-05-15] MEDS: lisinopriL 20 MG TABLET PO SCH (12:14)
[2021-05-15] MEDS: amLODIPine 5 MG TABLET PO SCH (12:14)
[2021-05-15 13:22] LABS: B. PARAPERTUSSIS- RESP PCR PAN NOT DETECTED; B. PERTUSSIS- RESP PCR PANEL NOT DETECTED; C. PNEUMONIAE- RESP PCR PANEL NOT DETECTED; CORONAVIRUS 229E-RESP PCR NOT DETECTED; CORONAVIRUS HKU1-RESP PCR NOT DETECTED; CORONAVIRUS NL63-RESP PCR NOT DETECTED; CORONAVIRUS OC43-RESP PCR NOT DETECTED; HUMAN METAPNEUMOVIRUS NOT DETECTED; INFLUENZA A- RESP PCR PANEL NOT DETECTED; INFLUENZA B - RESP PCR PANEL NOT DETECTED; M. PNEUMONIAE- RESP PCR PANEL NOT DETECTED; PARAINFLUENZA VIRUS 1 NOT DETECTED; PARAINFLUENZA VIRUS 2 NOT DETECTED; PARAINFLUENZA VIRUS 3 NOT DETECTED; PARAINFLUENZA VIRUS 4 NOT DETECTED; RHINOVIRUS/ENTEROVIRUS NOT DETECTED; RSV- RESP PCR PANEL NOT DETECTED; SARS-CoV-2 -RESP PCR PANEL NOT DETECTED
[2021-05-15 14:00] VITALS: BP 147/61
[2021-05-16] MEDS ORDERED: predniSONE 10 MG TABLET PO ONE (08:00)
[2021-05-17] MEDS ORDERED: predniSONE 20 MG TABLET PO ONE (08:00)
[2021-05-18] MEDS ORDERED: predniSONE 5 MG TABLET PO ONE (08:00)
[2021-05-19] MEDS ORDERED: predniSONE 10 MG TABLET PO ONE (08:00)
[2021-05-20] MEDS ORDERED: predniSONE 5 MG TABLET PO ONE (08:00)
== END 2021-05-15 15:20 | disposition home health service (06) | DRG 189 ==
LOC: EDUNIT# → ED 11:52 → ICU 14:18 → MS2 05-10 11:28
PROVIDERS: ADMIT Internal Medicine; ATTEND Specialist
DX: J44.9 Chronic obstructive pulmonary disease, unspecified (principal); J96.90 Respiratory failure, unspecified, unspecified whether with hypoxia or hypercapnia; J96.02 Acute respiratory failure with hypercapnia; F11.23 Opioid dependence with withdrawal; G47.30 Sleep apnea, unspecified; E11.10 Type 2 diabetes mellitus with ketoacidosis without coma; E66.01 Morbid (severe) obesity due to excess calories; I50.33 Acute on chronic diastolic (congestive) heart failure; J10.00 Influenza due to other identified influenza virus with unspecified type of pneumonia; J44.1 Chronic obstructive pulmonary disease with (acute) exacerbation; F17.200 Nicotine dependence, unspecified, uncomplicated; N17.9 Acute kidney failure, unspecified; Z68.44 Body mass index [BMI] 60.0-69.9, adult; I50.9 Heart failure, unspecified; E66.2 Morbid (severe) obesity with alveolar hypoventilation; J96.01 Acute respiratory failure with hypoxia; R47.89 Other speech disturbances; F43.20 Adjustment disorder, unspecified; I11.0 Hypertensive heart disease with heart failure; G89.4 Chronic pain syndrome; E03.9 Hypothyroidism, unspecified; E11.51 Type 2 diabetes mellitus with diabetic peripheral angiopathy without gangrene; Z79.84 Long term (current) use of oral hypoglycemic drugs; F41.9 Anxiety disorder, unspecified; Z79.899 Other long term (current) drug therapy; S81.802D Unspecified open wound, left lower leg, subsequent encounter; I87.8 Other specified disorders of veins; S81.801D Unspecified open wound, right lower leg, subsequent encounter; F09 Unspecified mental disorder due to known physiological condition; Z20.822 Contact with and (suspected) exposure to COVID-19; Z79.891 Long term (current) use of opiate analgesic; I27.81 Cor pulmonale (chronic); B37.2 Candidiasis of skin and nail
CPT/HCPCS: 36415; 36600; 70450; 71045; 74177; 80048; 80076; 82330; 82803; 83036; 83605; 83690; 83735; 83880; 84100; 84132; 84443; 84484; 85025; 87150; 87205; 87631; 93005; 94640; 94660; 94664; 96365; 96375; 97110; 97116; 97162; 97165; 97530; 99285; 99291; A9270; C8929; J1170; J1650; J1815; J2060; J7512; J7626; Q9957; Q9967; 0202U; 87070; 93306

== ENCOUNTER 2021-05-15 15:22 | Outpatient (CLI) | payer MEDICARE, MEDICAID | END 2021-05-15 15:23 | disposition home or self-care (01) | LOC: EMS 15:22 | PROVIDERS: ATTEND Specialist | DX: J11.00 Influenza due to unidentified influenza virus with unspecified type of pneumonia (principal); E66.01 Morbid (severe) obesity due to excess calories; Z74.01 Bed confinement status | CPT/HCPCS: A0425; A0428 ==

== ENCOUNTER 2021-07-10 14:44 | Outpatient (CLI) | payer MEDICARE, MEDICAID | END 2021-07-10 14:45 | disposition home or self-care (01) | LOC: LAB 14:44 | PROVIDERS: ATTEND Registered Nurse | DX: L03.116 Cellulitis of left lower limb (principal) | CPT/HCPCS: 87070; 87077; 87181; 87205 ==

== ENCOUNTER 2021-07-22 13:54 | Outpatient (CLI) | payer MEDICARE, MEDICAID ==
[2021-07-22 15:12] VITALS: BP 140/70
--- NOTE | 2021-07-22 15:12 | SLEEP CARE CONSULTATION ---
Information from patient questionnaire entered by Malou Chavez MA. I have reviewed and concur with the information entered by aMlou Chavez MA. This document represents the service I personally performed and the decisions made by Andrews duenas Caren J, ARNP. History of Present Illness Service Date and Time: 07/22/2021 1354 Reason for Visit: New patient (ONSET 05/2003, NO PRIORS, ) Chief Complaint: reports: Insomnia, Unrefreshed sleep, Snoring, Excessive dayti me sleepiness, Observed pauses in breathing, Fatigue, Frequent awakenings at night, Other (Hospital recommended she be evaluated for sleep disorder) Date of Onset: 10 YEARS Usual bedtime: DEPENDS Time it takes to fall asleep: VARIES, from a few minutes to hours Snores at night: Yes Observed to quit breathing while asleep: Yes Sleeps alone due to snoring: No Number of times waking at night: 3-4 Reasons for waking at night: reports: Snoring, Gasping for air, Pain, Bathroom, Other (unknown reasons) Toss, Turn, or Twitch while sleeping: Yes Recalls having dreams: No Usually gets out of bed at: 0400 Feels refreshed in the morning: No Morning headache: Yes (dull JAMES mostly, gone within an hour; hx migraines) Sleepy or fatigued during the day: Yes Ever fallen asleep while driving: Yes (drowsy driving, went out of judit, no accident; does not drive anymore) Takes day naps: Yes (most of the time unitentional naps) Dreams during day naps: No Prior sleep studies: No Additional HPI information: I had the pleasure of seeing JOSE L CHEN today regarding the possibility of her having a sleep disorder. Her current complaints are excessive daytime sleepiness, fatigue, frequent night awakenings, insomnia, observed pauses in breathing, snoring and unrefreshed sleep. She states the hospital recommended she seek evaluation. She was in the ICU with parainfluenza and pneumonia. She is 490 lbs and has difficulty ambulating. She uses a wheelchair for long distances. She has a caregiver to assist her for daily cares. She states she has snored for a long time. She was told at the hospital that she has CHF. - Parasomnia Symptoms Ever been unable to move upon waking from sleep: No Walks in sleep: No Talks in sleep: Yes Ever acted out dreams in sleep: Yes Ever felt weak in the knees when startled or emotional: No (don't know, maybe) Bothered by creepy, crawly, restless sensations in legs: No Problems with memory or concentration: Yes (both, skylar had memory since grandson in Mar 2021) Subjective Initial Pyatt Sleepiness Scale score: 22 (07/2021) Past Medical History Past Medical History: reports: Hypertension, Claustrophobia, Diabetes, Arthritis, Hypothyroidism, Fibromyalgia, Anemia, Anxiety, Asthma, Depression, GERD, Other (heart issues (murmur, CdHF), kidney injury (MILLIE); COPD) Social History The patient's occupation is a RE. Patient is and lives in . Have you smoked in the past 12 months: No Cigarettes per day (20/pack): 20 Years of smokin Smoking Pack Years: 40.0 Alcohol use: No Caffeine use: Yes Caffeine amount and frequency: 1-2 cups coffee daily Family History Family history of sleep disordered breathing: No (ADOPTED) Allergies and Home Medications Known drug allergies: Yes (SULFA'S) Drug allergies reviewed: Yes Home medication list reviewed: Yes (see list in chart, accurate per patient ) Allergy and home medication list: Allergies Penicillins Allergy (Verified 05/07/21 15:52) Rash Sulfa (Sulfonamide Antibiotics) Allergy (Verified 05/07/21 15:52) Rash Review of Systems Weight gain over past 5 years: 100 pounds Cardiovascular: reports: high blood pressure, leg or foot swelling, have to sleep sitting up (sometimes) Respiratory: reports: shortness of breath, wheeze Gastrointestinal: reports: heartburn, difficulty swallowing, abdominal pain Urinary: reports: incontinence (sometimes), urgency Psychiatric: reports: anxiety, depression, claustrophobia Ear/Nose/Throat: reports: nasal congestion, hoarseness Endocrine: reports: thyroid disease, sluggishness, excessive thirst, unexplained weakness Musculoskeletal: reports: joint pain, neck pain, back pain, joint swelling, muscle pain or cramping, mobility problems Immunologic: reports: rash, allergies to food or environment Physical Exam Vital signs obtained and entered by: Marlon CHAVEZ CMA [place] Blood Pressure: 140/70 (right) Cuff size: wrist Heart Rate: 82 O2 Saturation: 96 (PAPER Mask) Height: 5 ft 10 in Weight: 490 lb Body Mass Index: 70.3 BMI Classification: Morbidly Obese Neck circumference: 19 (inches) Mouth and throat: narrow oropharynx Soft palate: long Hard palate: normal Uvula: normal Uvula visualization: 50% Mallampati Class II Tongue: enlarged in size with teeth espinoza on lateral edges Tonsils: small Neck: normal w/o lymphadenopathy or thyromegaly Heart: regular rate and rhythm Lungs: clear bilaterally Impression and Plan 1. Suspected Obstructive Sleep Apnea-Hypopnea Syndrome, as suggested by a history of loud and irregular snoring, observed cessation of breath while asleep, gasping or choking in sleep, morning headache, frequent awakening during the night, unrefreshed sleep, cognitive impairment, and excessive daytime sleepiness. Narrow oropharynx and obesity are common predisposing factors for obstructive sleep apnea-hypopnea syndrome. I recommend proceeding to polysomnography to confirm the diagnosis and to assess severity. If the patient has significant sleep disordered breathing, a manual CPAP titration study will also be performed to find the optimal treatment pressure. I informed the patient of what the sleep studies involve and after some discussion, obtained agreement to proceed. The pathophysiology of obstructive sleep apnea-hypopnea syndrome was discussed with the patient and health risks of cardiovascular and cerebrovascul ar disease if not treated. Risks of drowsy driving discussed in detail and patient advised to avoid long distance driving and to bleach boiler puller at the first sign of drowsiness. Patient weighs 490 lbs and will need to go to [facility] her [facility]. She will also need her caregiver there to assist her during the night as needed. Patient voiced understanding and agreed to plan. * Schedule polysomnography +- manual CPAP titration study and return in 1-2 weeks after the study to discuss result. * Patient no longer drives * Avoid alcohol, sedative and muscle relaxant around bedtime. * Attempt to lose weight. * Review instructions provided by trained office staff on how to prepare for the sleep study. * Return for follow-up after sleep study completed. Counseling Topics: Weight loss health impact Visit Type: In Office Other Participants: Caregiver Time Spent with Patient (minutes): 42 Provider Statement: I spent 100% of the Face to Face Visit with the patient with greater than 50% spent counseling the patient and coordination of care.
== END 2021-07-22 13:55 | disposition home or self-care (01) ==
LOC: SC 13:54
PROVIDERS: ATTEND Nurse Practitioner Family
DX: G47.10 Hypersomnia, unspecified (principal); G47.8 Other sleep disorders; R06.81 Apnea, not elsewhere classified; R41.9 Unspecified symptoms and signs involving cognitive functions and awareness; R06.83 Snoring; R51.9 Headache, unspecified; Z87.891 Personal history of nicotine dependence
CPT/HCPCS: 99203; G0463; 99212

== ENCOUNTER 2021-08-11 08:00 | Outpatient (CLI) | payer MEDICARE, MEDICAID | END 2021-09-13 18:13 | disposition home or self-care (01) | LOC: LAB.R 08:00 | PROVIDERS: ATTEND Acupuncturist | DX: Z79.891 Long term (current) use of opiate analgesic (principal) | CPT/HCPCS: 80346; 80360; 80366; 80377; G0480; 80320; 80321; 80323; 80345; 80348; 80349; 80353; 80354; 80356; 80358; 80359; 80361; 80364; 80365; 80367; 80368; 80373; 81599; 83992 ==

== ENCOUNTER 2021-09-04 07:28 | Outpatient (CLI) | payer MEDICARE, MEDICAID | END 2021-09-04 07:29 | disposition EMS.NT | LOC: EMS 07:28 | DX: Z53.9 Procedure and treatment not carried out, unspecified reason (principal) ==

== ENCOUNTER 2021-09-12 08:00 | Outpatient (CLI) | payer MEDICARE, MEDICAID ==
--- NOTE | 2021-09-12 21:11 | XRAY Report ---
PROCEDURE: Knee 2 View BILAT INDICATIONS: BILATERAL KNEE PAIN TECHNIQUE: 2 views of the right and left knee(s) were acquired. COMPARISON: None. FINDINGS: Bones: No fractures or dislocations. No suspicious bony lesions. Moderate tricompartmental osteoar thritic degenerative changes noted in the right and left knees including joint space narrowing and ma rginal osteophytosis. Soft tissues: No joint effusion. No suspicious soft tissue calcifications. IMPRESSION: Bilateral knee moderate tricompartmental osteoarthritis. Reviewed by: Vickie Aguilera MD, PhD on 09/12/2021 9:10 PM PDT Approved by: Vickie Aguilera MD, PhD on 09/12/2021 9:10 PM PDT Station ID: [id number]
== END 2021-09-12 23:59 | disposition home or self-care (01) ==
LOC: DI.S 08:00
PROVIDERS: ATTEND Registered Nurse
DX: M17.0 Bilateral primary osteoarthritis of knee (principal); I10 Essential (primary) hypertension; L03.90 Cellulitis, unspecified; R60.9 Edema, unspecified; R06.00 Dyspnea, unspecified
CPT/HCPCS: 36415; 80053; 83880; 85025; 86140

== ENCOUNTER 2021-09-12 16:14 | Outpatient (CLI) | payer MEDICARE, MEDICAID ==
[2021-09-12 19:53] LABS: BASOPHILS % (AUTO) 0.3 %; EOSINOPHILS # (AUTO) 0.4 10^3/uL (0.0-0.7); EOSINOPHILS % (AUTO) 3.8 %; HCT - HEMATOCRIT 30.7 % (37.0-47.0); LYMPHOCYTES # (AUTO) 1.2 10^3/uL (1.5-3.5); LYMPHOCYTES % (AUTO) 11.7 %; MEAN CORPUSCULAR HEMOGLOBIN 25.4 pg (27.0-31.0); MEAN CORPUSCULAR HGB CONC 29.3 g/dL (32.0-36.0); MEAN CORPUSCULAR VOLUME 86.5 fL (81.0-99.0); MEAN PLATELET VOLUME 10.5 fL (7.9-10.8); MONOCYTES # (AUTO) 0.6 10^3/uL (0.0-1.0); MONOCYTES % (AUTO) 5.6 %; NEUTROPHILS # (AUTO) 8.2 10^3/uL (1.5-6.6); NEUTROPHILS % (AUTO) 78.1 %; PLT - PLATELET COUNT 357 10^3/uL (130-450); RED BLOOD COUNT 3.55 10^6/uL (4.20-5.40); WHITE BLOOD COUNT 10.5 x10^3/uL (4.8-10.8)
[2021-09-12 20:28] LABS: ALBUMIN 3.7 g/dL (3.2-5.5); ALBUMIN/GLOBULIN RATIO 1.1 (1.0-2.2); BILIRUBIN,TOTAL 0.6 mg/dL (0.2-1.0); CALCIUM 8.9 mg/dL (8.5-10.3); CREATININE 1.3 mg/dL (0.4-1.0); CRP - C-REACTIVE PROTEIN 6.3 mg/dL (0-1.0); POTASSIUM 5.1 mmol/L (3.5-5.0); TOTAL PROTEIN 7.2 g/dL (6.7-8.2)
== END 2021-09-12 16:15 | disposition home or self-care (01) ==
LOC: LAB.S 16:14
PROVIDERS: ATTEND Registered Nurse
DX: I10 Essential (primary) hypertension (principal); L03.90 Cellulitis, unspecified; R60.9 Edema, unspecified; R06.00 Dyspnea, unspecified
CPT/HCPCS: 36415; 80053; 83880; 85025; 86140

== ENCOUNTER 2021-09-14 15:07 | Outpatient (CLI) | payer MEDICARE, MEDICAID | END 2021-09-14 15:08 | disposition critical access hospital (66) | LOC: EMS 15:07 | DX: R06.02 Shortness of breath (principal); R60.0 Localized edema | CPT/HCPCS: A0425; A0429 ==

== ENCOUNTER 2021-10-08 11:17 | Inpatient (IN) | payer MEDICARE, MEDICAID ==
--- OUTSIDE RECORDS SUMMARY | 2021-10-08 15:26 | EXTERNAL MEDICAL SUMMARY RPT | Continuity of Care Document ---
: Demographics Phone Unavailable Preferred Language Unknown Marital Status Unknown Yarsanism Affiliation Unknown Race Unknown Ethnic Group Unknown Author Organization [facility] Address [address] [place] [address] Phone Care Team Providers Name Role Phone ROMELFarnaz, Jennifer Castelan Unavailable Unavailable Allergies No information. Encounters No information. Medications date description facility [id number] sertraline [facility] [place] [id number] furosemide [facility] [place] [place] [facility] [place] [id number] hydrochlorothiazide [facility] [place] [id number] furosemide [facility] [place] [id number] hydroxyzine hcl [facility] [place] [place] [facility] [place] [id number] furosemide [facility] [place] [place] [place] [id number] metformin [facility] [place] [facility] [place] [facility] [place] [id number] furosemide [facility] [place] [facility] [place] [facility] [place] [id number] doxycycline hyclate [facility] [place] Problems date description facility [id number] XR KNEE 1 OR 2 VIEW [facility] [id number] VITAMIN D, 25-OH TOTAL, IA [facility] [id number] VITAMIN B 12 [facility] [id number] Transferrin [facility] [place] [facility] [id number] Total score? [facility] [id number] Tobacco use and exposure [facility] [id number] Retic Ct Auto [facility] [id number] Pain in unspecified knee [facility] [id number] Pain in joint involving lower leg [facility] [id number] Other malaise and fatigue [facility] [id number] Other fatigue [facility] [id number] Knee pain [facility] [facility] [id number] Iron & TIBC [facility] [id number] Hemoglobin Electrophoresis [facility] [id number] Former smoker [facility] [id number] Folic Acid [facility] [id number] Ferritin [facility] [id number] Fatigue [facility] [id number] Details of drug misuse behavior [facility] [id number] CBC W/Diff/Plt [facility] [place] [facility] [id number] Anemia, unspecified [facility] [id number] Anemia [facility] [place] [facility] [id number] Alcohol use [facility] [place] [facility] [place] [facility] [id number] ECHO TRANSTHORACIC COMPLETE [facility] [id number] COMPREHENSIVE METABOLIC PANEL [facility] [id number] US RENAL [facility] [id number] Cellulitis, unspecified [facility] [id number] Cellulitis [facility] [place] [facility] [id number] Cellulitis and abscess of unspecified [facility] [id number] CRP [facility] [place] [facility] [id number] CBC W/Diff/Plt [facility] [id number] Basic Metabolic Panel (BMP) [facility] [id number] B-WEATHERIZATION COORDINATOR [facility] [place] [facility] [place] Procedures date description facility [id number] XR KNEE 1 OR 2 VIEW [facility] [place] Results test status date ordered by attending specimen hilda e urea_nitrogen_blood unknown 20211004 unknown unknown unk nown Erythrocytes_volume_in unknown [id number] unknown unknown unknown _Blood_by_Automated_cou nt Erythrocyte_distributi unknown 20211004 unknown unknown unknown on_width_Ratio_by_Autom ated_count MCV_Entitic_volume_by_ unknown 20211004 unknown unknown unknown Automated_count MCH_Entitic_mass_by_Au unknown 20211004 unknown unknown unknown tomated_count Platelets_volume_in_Bl unknown 20211004 unknown unknown unknown ood_by_Automated_count Platelet_mean_volume_E unknown 20211004 unknown unknown unknown ntitic_volume_in_Blood_ by_Rees-Zuhair neutrophil_count_blood unknown 20211004 unknown unknown unknown monocyte_count_blood unknown 20211004 unknown unknown un known lymphocyte_count_blood unknown 20211004 unknown unknown unknown Hemoglobin_Mass_volume unknown 20211004 unknown unknown unknown _in_Blood eosinophil_count_blood unknown 20211004 unknown unknown unknown Basophils_volume_in_Bl unknown 20211004 unknown unknown unknown ood_by_Manual_count leukocyte_count_blood unknown 20211004 unknown unknown u nknown erythrocyte_RBC_count unknown 20211004 unknown unknown u nknown Leukocytes_volume_in_B unknown 20211004 unknown unknown unknown lood_by_Automated_count Glomerular_Filtration_ unknown 20211004 unknown unknown unknown rate platelet_count unknown 20211004 unknown unknown unknown hemoglobin_blood unknown 20211004 unknown unknown unknow n hematocrit_blood unknown 20211004 unknown unknown unknow n potassium_blood unknown 20211004 unknown unknown unknown Glomerular_filtration_r unknown 20211004 unknown unknown unknown ate_1.73_sq_M.predicted _among_non-blacks_Volum e_Rate_Area_in_Serum_Pl asma_or_Blood_by_Creati nine-based_formula_MDRD _ Hematocrit_Volume_Frac unknown 20211004 unknown unknown unknown tion_of_Blood_by_Automa ted_count carbon_dioxide_serum_t unknown 20211004 unknown unknown unknown otal blood_glucose unknown 20211004 unknown unknown unknown potassium_blood unknown 20211004 unknown unknown unknown mean_corpuscular_volum unknown 20211004 unknown unknown unknown e_RBC Urea_nitrogen_Mass_vol unknown 20211004 unknown unknown unknown ume_in_Serum_or_Plasma Sodium_Moles_volume_in unknown 20211004 unknown unknown unknown _Serum_or_Plasma eosinophil_count_blood unknown 20211004 unknown unknown unknown anion_gap_serum unknown 20211004 unknown unknown unknown mean_platelet_volume unknown 20211004 unknown unknown un known basophil_count_blood unknown 20211004 unknown unknown un known monocyte_count_blood unknown 20211004 unknown unknown un known lymphocyte_count_blood unknown 20211004 unknown unknown unknown neutrophil_count_blood unknown 20211004 unknown unknown unknown Glucose_Mass_volume_in unknown 20211004 unknown unknown unknown _Serum_or_Plasma Creatinine_Mass_volume unknown 20211004 unknown unknown unknown _in_Serum_or_Plasma Chloride_Moles_volume_ unknown 20211004 unknown unknown unknown in_Serum_or_Plasma carbon_dioxide_serum_t unknown 20211004 unknown unknown unknown otal Calcium_Moles_volume_i unknown 20211004 unknown unknown unknown n_Serum_or_Plasma Anion_gap_4_in_Serum_o unknown 20211004 unknown unknown unknown r_Plasma creatinine_serum unknown 20211004 unknown unknown unknow n mean_corpuscular_hemog unknown 20211004 unknown unknown unknown lobin_concentration_rbc sodium_serum unknown 20211004 unknown unknown unknown chloride_serum unknown 20211004 unknown unknown unknown calcium_serum unknown 20211004 unknown unknown unknown mean_corpuscular_hemog unknown 20211004 unknown unknown unknown lobin_RBC red_blood_cell_distrib unknown 20211004 unknown unknown unknown ution_width T unknown 20211004 unknown unknown unknown T unknown 20211004 unknown unknown unknown T unknown 20211004 unknown unknown unknown T unknown 20211004 unknown unknown unknown PLT_-_PLATELET_COUNT unknown 20211004 unknown unknown un known NEUTROPHILS_AUTO_ unknown 20211004 unknown unknown unkno wn T unknown 20211004 unknown unknown unknown T unknown 20211004 unknown unknown unknown T unknown 20211004 unknown unknown unknown MONOCYTES_AUTO_ unknown 20211004 unknown unknown unknown T unknown 20211004 unknown unknown unknown T unknown 20211004 unknown unknown unknown T unknown 20211004 unknown unknown unknown T unknown 20211004 unknown unknown unknown LYMPHOCYTES_AUTO_ unknown 20211004 unknown unknown unkno wn T unknown 20211004 unknown unknown unknown T unknown 20211004 unknown unknown unknown T unknown 20211004 unknown unknown unknown T unknown 20211004 unknown unknown unknown T unknown [id number] unknown unknown unknown T unknown 20211004 unknown unknown unknown GFR_-_MDRD unknown 20211004 unknown unknown unknown T unknown 20211004 unknown unknown unknown EOSINOPHILS_AUTO_ unknown 20211004 unknown unknown unkno wn T unknown 20211004 unknown unknown unknown T unknown 20211004 unknown unknown unknown T unknown 20211004 unknown unknown unknown T unknown 20211004 unknown unknown unknown T unknown 20211004 unknown unknown unknown T unknown 20211004 unknown unknown unknown BASOPHILS_AUTO_ unknown 20211004 unknown unknown unknown T unknown 20211004 unknown unknown unknown urea_nitrogen_blood unknown 20211003 unknown unknown unk nown Erythrocytes_volume_in unknown 20211003 unknown unknown unknown _Blood_by_Automated_cou nt Erythrocyte_distributi unknown 20211003 unknown unknown unknown on_width_Ratio_by_Autom ated_count MCV_Entitic_volume_by_ unknown 20211003 unknown unknown unknown Automated_count MCH_Entitic_mass_by_Au unknown 20211003 unknown unknown unknown tomated_count Platelets_volume_in_Bl unknown 20211003 unknown unknown unknown ood_by_Automated_count Platelet_mean_volume_E unknown 20211003 unknown unknown unknown ntitic_volume_in_Blood_ by_Rees-Zuhair neutrophil_count_blood unknown 20211003 unknown unknown unknown monocyte_count_blood unknown 20211003 unknown unknown un known lymphocyte_count_blood unknown 20211003 unknown unknown unknown Hemoglobin_Mass_volume unknown 20211003 unknown unknown unknown _in_Blood eosinophil_count_blood unknown 20211003 unknown unknown unknown Basophils_volume_in_Bl unknown 20211003 unknown unknown unknown ood_by_Manual_count leukocyte_count_blood unknown 20211003 unknown unknown u nknown erythrocyte_RBC_count unknown 20211003 unknown unknown u nknown Leukocytes_volume_in_B unknown 20211003 unknown unknown unknown lood_by_Automated_count Glomerular_Filtration_ unknown 20211003 unknown unknown unknown rate platelet_count unknown 20211003 unknown unknown unknown hemoglobin_blood unknown 20211003 unknown unknown unknow n hematocrit_blood unknown 20211003 unknown unknown unknow n potassium_blood unknown 20211003 unknown unknown unknown Glomerular_filtration_r unknown 20211003 unknown unknown unknown ate_1.73_sq_M.predicted _among_non-blacks_Volum e_Rate_Area_in_Serum_Pl asma_or_Blood_by_Creati nine-based_formula_MDRD _ Hematocrit_Volume_Frac unknown 20211003 unknown unknown unknown tion_of_Blood_by_Automa ted_count carbon_dioxide_serum_t unknown 20211003 unknown unknown unknown otal blood_glucose unknown 20211003 unknown unknown unknown potassium_blood unknown 20211003 unknown unknown unknown mean_corpuscular_volum unknown 20211003 unknown unknown unknown e_RBC Urea_nitrogen_Mass_vol unknown 20211003 unknown unknown unknown ume_in_Serum_or_Plasma Sodium_Moles_volume_in unknown 20211003 unknown unknown unknown _Serum_or_Plasma eosinophil_count_blood unknown 20211003 unknown unknown unknown anion_gap_serum unknown 20211003 unknown unknown unknown mean_platelet_volume unknown 20211003 unknown unknown un known basophil_count_blood unknown 20211003 unknown unknown un known monocyte_count_blood unknown 20211003 unknown unknown un known lymphocyte_count_blood unknown 20211003 unknown unknown unknown neutrophil_count_blood unknown 20211003 unknown unknown unknown Glucose_Mass_volume_in unknown 20211003 unknown unknown unknown _Serum_or_Plasma Creatinine_Mass_volume unknown 20211003 unknown unknown unknown _in_Serum_or_Plasma Chloride_Moles_volume_ unknown 20211003 unknown unknown unknown in_Serum_or_Plasma carbon_dioxide_serum_t unknown 20211003 unknown unknown unknown otal Calcium_Moles_volume_i unknown 20211003 unknown unknown unknown n_Serum_or_Plasma Anion_gap_4_in_Serum_o unknown 20211003 unknown unknown unknown r_Plasma creatinine_serum unknown 20211003 unknown unknown unknow n mean_corpuscular_hemog unknown 20211003 unknown unknown unknown lobin_concentration_rbc sodium_serum unknown 20211003 unknown unknown unknown chloride_serum unknown 20211003 unknown unknown unknown calcium_serum unknown 20211003 unknown unknown unknown mean_corpuscular_hemog unknown 20211003 unknown unknown unknown lobin_RBC red_blood_cell_distrib unknown 20211003 unknown unknown unknown ution_width T unknown 20211003 unknown unknown unknown T unknown 20211003 unknown unknown unknown T unknown 20211003 unknown unknown unknown T unknown 20211003 unknown unknown unknown NEUTROPHILS_AUTO_ unknown 20211003 unknown unknown unkno wn T unknown 20211003 unknown unknown unknown T unknown 20211003 unknown unknown unknown T unknown 20211003 unknown unknown unknown MONOCYTES_AUTO_ unknown 20211003 unknown unknown unknown T unknown 20211003 unknown unknown unknown T unknown 20211003 unknown unknown unknown T unknown 20211003 unknown unknown unknown T unknown 20211003 unknown unknown unknown LYMPHOCYTES_AUTO_ unknown 20211003 unknown unknown unkno wn T unknown 20211003 unknown unknown unknown T unknown 20211003 unknown unknown unknown T unknown 20211003 unknown unknown unknown T unknown 20211003 unknown unknown unknown T unknown 20211003 unknown unknown unknown T unknown 20211003 unknown unknown unknown GFR_-_MDRD unknown 20211003 unknown unknown unknown T unknown 20211003 unknown unknown unknown EOSINOPHILS_AUTO_ unknown 20211003 unknown unknown unkno wn T unknown 20211003 unknown unknown unknown T unknown 20211003 unknown unknown unknown T unknown 20211003 unknown unknown unknown T unknown 20211003 unknown unknown unknown T unknown 20211003 unknown unknown unknown T unknown 20211003 unknown unknown unknown BASOPHILS_AUTO_ unknown 20211003 unknown unknown unknown T unknown 20211003 unknown unknown unknown urea_nitrogen_blood unknown 20211002 unknown unknown unk nown Erythrocytes_volume_in unknown 20211002 unknown unknown unknown _Blood_by_Automated_cou nt Erythrocyte_distributi unknown 20211002 unknown unknown unknown on_width_Ratio_by_Autom ated_count MCV_Entitic_volume_by_ unknown 20211002 unknown unknown unknown Automated_count MCH_Entitic_mass_by_Au unknown 20211002 unknown unknown unknown tomated_count Platelets_volume_in_Bl unknown 20211002 unknown unknown unknown ood_by_Automated_count Platelet_mean_volume_E unknown 20211002 unknown unknown unknown ntitic_volume_in_Blood_ by_Rees-Zuhair neutrophil_count_blood unknown 20211002 unknown unknown unknown monocyte_count_blood unknown 20211002 unknown unknown un known lymphocyte_count_blood unknown 20211002 unknown unknown unknown Hemoglobin_Mass_volume unknown 20211002 unknown unknown unknown _in_Blood eosinophil_count_blood unknown 20211002 unknown unknown unknown Basophils_volume_in_Bl unknown 20211002 unknown unknown unknown ood_by_Manual_count leukocyte_count_blood unknown 20211002 unknown unknown u nknown erythrocyte_RBC_count unknown 20211002 unknown unknown u nknown Leukocytes_volume_in_B unknown 20211002 unknown unknown unknown lood_by_Automated_count Glomerular_Filtration_ unknown 20211002 unknown unknown unknown rate platelet_count unknown 20211002 unknown unknown unknown hemoglobin_blood unknown 20211002 unknown unknown unknow n hematocrit_blood unknown 20211002 unknown unknown unknow n potassium_blood unknown 20211002 unknown unknown unknown Glomerular_filtration_r unknown 20211002 unknown unknown unknown ate_1.73_sq_M.predicted _among_non-blacks_Volum e_Rate_Area_in_Serum_Pl asma_or_Blood_by_Creati nine-based_formula_MDRD _ Hematocrit_Volume_Frac unknown 20211002 unknown unknown unknown tion_of_Blood_by_Automa ted_count carbon_dioxide_serum_t unknown 20211002 unknown unknown unknown otal blood_glucose unknown 20211002 unknown unknown unknown potassium_blood unknown 20211002 unknown unknown unknown magnesium_serum unknown 20211002 unknown unknown unknown mean_corpuscular_volum unknown 20211002 unknown unknown unknown e_RBC Urea_nitrogen_Mass_vol unknown 20211002 unknown unknown unknown ume_in_Serum_or_Plasma Sodium_Moles_volume_in unknown 20211002 unknown unknown unknown _Serum_or_Plasma eosinophil_count_blood unknown 20211002 unknown unknown unknown anion_gap_serum unknown 20211002 unknown unknown unknown mean_platelet_volume unknown 20211002 unknown unknown un known Magnesium_Moles_volume unknown 20211002 unknown unknown unknown _in_Serum_or_Plasma basophil_count_blood unknown 20211002 unknown unknown un known monocyte_count_blood unknown 20211002 unknown unknown un known lymphocyte_count_blood unknown 20211002 unknown unknown unknown neutrophil_count_blood unknown 20211002 unknown unknown unknown Glucose_Mass_volume_in unknown 20211002 unknown unknown unknown _Serum_or_Plasma Creatinine_Mass_volume unknown 20211002 unknown unknown unknown _in_Serum_or_Plasma Chloride_Moles_volume_ unknown 20211002 unknown unknown unknown in_Serum_or_Plasma carbon_dioxide_serum_t unknown 20211002 unknown unknown unknown otal Calcium_Moles_volume_i unknown 20211002 unknown unknown unknown n_Serum_or_Plasma Anion_gap_4_in_Serum_o unknown 20211002 unknown unknown unknown r_Plasma creatinine_serum unknown 20211002 unknown unknown unknow n mean_corpuscular_hemog unknown 20211002 unknown unknown unknown lobin_concentration_rbc sodium_serum unknown 20211002 unknown unknown unknown chloride_serum unknown 20211002 unknown unknown unknown calcium_serum unknown 20211002 unknown unknown unknown mean_corpuscular_hemog unknown 20211002 unknown unknown unknown lobin_RBC red_blood_cell_distrib unknown 20211002 unknown unknown unknown ution_width T unknown 20211002 unknown unknown unknown T unknown 20211002 unknown unknown unknown T unknown 20211002 unknown unknown unknown T unknown 20211002 unknown unknown unknown NEUTROPHILS_AUTO_ unknown 20211002 unknown unknown unkno wn T unknown 20211002 unknown unknown unknown T unknown 20211002 unknown unknown unknown T unknown 20211002 unknown unknown unknown MONOCYTES_AUTO_ unknown 20211002 unknown unknown unknown T unknown 20211002 unknown unknown unknown T unknown 20211002 unknown unknown unknown T unknown 20211002 unknown unknown unknown T unknown 20211002 unknown unknown unknown T unknown 20211002 unknown unknown unknown LYMPHOCYTES_AUTO_ unknown 20211002 unknown unknown unkno wn T unknown 20211002 unknown unknown unknown T unknown 20211002 unknown unknown unknown T unknown 20211002 unknown unknown unknown T unknown 20211002 unknown unknown unknown T unknown 20211002 unknown unknown unknown T unknown 20211002 unknown unknown unknown GFR_-_MDRD unknown 20211002 unknown unknown unknown T unknown 20211002 unknown unknown unknown EOSINOPHILS_AUTO_ unknown 20211002 unknown unknown unkno wn T unknown 20211002 unknown unknown unknown T unknown 20211002 unknown unknown unknown T unknown 20211002 unknown unknown unknown T unknown 20211002 unknown unknown unknown T unknown 20211002 unknown unknown unknown T unknown 20211002 unknown unknown unknown BASOPHILS_AUTO_ unknown 20211002 unknown unknown unknown T unknown 20211002 unknown unknown unknown urea_nitrogen_blood unknown 20211001 unknown unknown unk nown Erythrocytes_volume_in unknown 20211001 unknown unknown unknown _Blood_by_Automated_cou nt Erythrocyte_distributi unknown 20211001 unknown unknown unknown on_width_Ratio_by_Autom ated_count MCV_Entitic_volume_by_ unknown 20211001 unknown unknown unknown Automated_count MCH_Entitic_mass_by_Au unknown 20211001 unknown unknown unknown tomated_count Platelets_volume_in_Bl unknown 20211001 unknown unknown unknown ood_by_Automated_count Platelet_mean_volume_E unknown 20211001 unknown unknown unknown ntitic_volume_in_Blood_ by_Rees-Zuhair neutrophil_count_blood unknown 20211001 unknown unknown unknown monocyte_count_blood unknown 20211001 unknown unknown un known lymphocyte_count_blood unknown 20211001 unknown unknown unknown Hemoglobin_Mass_volume unknown 20211001 unknown unknown unknown _in_Blood eosinophil_count_blood unknown 20211001 unknown unknown unknown Basophils_volume_in_Bl unknown 20211001 unknown unknown unknown ood_by_Manual_count leukocyte_count_blood unknown 20211001 unknown unknown u nknown erythrocyte_RBC_count unknown 20211001 unknown unknown u nknown Leukocytes_volume_in_B unknown 20211001 unknown unknown unknown lood_by_Automated_count Glomerular_Filtration_ unknown 20211001 unknown unknown unknown rate platelet_count unknown 20211001 unknown unknown unknown hemoglobin_blood unknown 20211001 unknown unknown unknow n hematocrit_blood unknown 20211001 unknown unknown unknow n potassium_blood unknown 20211001 unknown unknown unknown WBC_urine_on_microscop unknown 20211001 unknown unknown unknown y Urobilinogen_Presence_ unknown 20211001 unknown unknown unknown in_Urine_by_Test_strip Specific_gravity_of_Ur unknown 20211001 unknown unknown unknown ine_by_Test_strip Nitrite_Presence_in_Ur unknown 20211001 unknown unknown unknown ine_by_Test_strip Leukocyte_esterase_Pre unknown 20211001 unknown unknown unknown sence_in_Urine_by_Test_ strip Ketones_Mass_volume_in unknown 20211001 unknown unknown unknown _Urine_by_Test_strip Color_of_Urine unknown 20211001 unknown unknown unknown Bilirubin.total_Presen unknown 20211001 unknown unknown unknown ce_in_Urine_by_Test_str ip clarity_urine_point unknown 20211001 unknown unknown unk nown pH_study_of_acidity unknown 20211001 unknown unknown unk nown Glomerular_filtration_r unknown 20211001 unknown unknown unknown ate_1.73_sq_M.predicted _among_non-blacks_Volum e_Rate_Area_in_Serum_Pl asma_or_Blood_by_Creati nine-based_formula_MDRD _ Hematocrit_Volume_Frac unknown 20211001 unknown unknown unknown tion_of_Blood_by_Automa ted_count carbon_dioxide_serum_t unknown 20211001 unknown unknown unknown otal blood_glucose unknown 20211001 unknown unknown unknown potassium_blood unknown 20211001 unknown unknown unknown glucose_urine unknown 20211001 unknown unknown unknown leukocyte_esterase_uri unknown 20211001 unknown unknown unknown ne_by_dipstick urobilinogen_urine_sem unknown 20211001 unknown unknown unknown iquantitative_dipstick_ specific_gravity_urine unknown 20211001 unknown unknown unknown nitrite_urine_semiquan unknown 20211001 unknown unknown unknown titative ketones_urine_by_test_ unknown 20211001 unknown unknown unknown strip magnesium_serum unknown 20211001 unknown unknown unknown bilirubin_urine unknown 20211001 unknown unknown unknown mean_corpuscular_volum unknown 20211001 unknown unknown unknown e_RBC Urea_nitrogen_Mass_vol unknown 20211001 unknown unknown unknown ume_in_Serum_or_Plasma Sodium_Moles_volume_in unknown 20211001 unknown unknown unknown _Serum_or_Plasma eosinophil_count_blood unknown 20211001 unknown unknown unknown anion_gap_serum unknown 20211001 unknown unknown unknown mean_platelet_volume unknown 20211001 unknown unknown un known urine_color unknown 20211001 unknown unknown unknown Magnesium_Moles_volume unknown 20211001 unknown unknown unknown _in_Serum_or_Plasma basophil_count_blood unknown 20211001 unknown unknown un known monocyte_count_blood unknown 20211001 unknown unknown un known lymphocyte_count_blood unknown 20211001 unknown unknown unknown neutrophil_count_blood unknown 20211001 unknown unknown unknown Glucose_Mass_volume_in unknown 20211001 unknown unknown unknown _Urine Glucose_Mass_volume_in unknown 20211001 unknown unknown unknown _Serum_or_Plasma Creatinine_Mass_volume unknown 20211001 unknown unknown unknown _in_Serum_or_Plasma Chloride_Moles_volume_ unknown 20211001 unknown unknown unknown in_Serum_or_Plasma carbon_dioxide_serum_t unknown 20211001 unknown unknown unknown otal Calcium_Moles_volume_i unknown 20211001 unknown unknown unknown n_Serum_or_Plasma Anion_gap_4_in_Serum_o unknown 20211001 unknown unknown unknown r_Plasma creatinine_serum unknown 20211001 unknown unknown unknow n mean_corpuscular_hemog unknown 20211001 unknown unknown unknown lobin_concentration_rbc sodium_serum unknown 20211001 unknown unknown unknown chloride_serum unknown 20211001 unknown unknown unknown calcium_serum unknown 20211001 unknown unknown unknown mean_corpuscular_hemog unknown 20211001 unknown unknown unknown lobin_RBC red_blood_cell_distrib unknown 20211001 unknown unknown unknown ution_width WBC_urine_on_microscop unknown 20211001 unknown unknown unknown y T unknown 20211001 unknown unknown unknown WBC_URINE unknown 20211001 unknown unknown unknown UROBILINOGEN_URINE unknown 20211001 unknown unknown unkn own SPECIFIC_GRAVITY_URINE unknown 20211001 unknown unknown unknown T unknown 20211001 unknown unknown unknown T unknown 20211001 unknown unknown unknown T unknown 20211001 unknown unknown unknown T unknown 20211001 unknown unknown unknown T unknown 20211001 unknown unknown unknown T unknown 20211001 unknown unknown unknown T unknown 20211001 unknown unknown unknown T unknown 20211001 unknown unknown unknown T unknown 20211001 unknown unknown unknown T unknown 20211001 unknown unknown unknown T unknown 20211001 unknown unknown unknown PH_URINE unknown 20211001 unknown unknown unknown NITRITE_URINE unknown 20211001 unknown unknown unknown LEUKOCYTE_ESTERASE_URI unknown 20211001 unknown unknown unknown NE KETONES_URINE_UA_ unknown 20211001 unknown unknown unkno wn GLUCOSE_URINE_UA_ unknown 20211001 unknown unknown unkno wn COLOR_URINE unknown 20211001 unknown unknown unknown CLARITY_URINE unknown 20211001 unknown unknown unknown BILIRUBIN_URINE unknown 20211001 unknown unknown unknown T unknown 20211001 unknown unknown unknown T unknown 20211001 unknown unknown unknown T unknown [id number] unknown unknown unknown NEUTROPHILS_AUTO_ unknown 20211001 unknown unknown unkno wn T unknown 20211001 unknown unknown unknown T unknown 20211001 unknown unknown unknown T unknown 20211001 unknown unknown unknown MONOCYTES_AUTO_ unknown 20211001 unknown unknown unknown T unknown [id number] unknown unknown unknown T unknown 20211001 unknown unknown unknown T unknown [id number] unknown unknown unknown T unknown [id number] unknown unknown unknown T unknown 20211001 unknown unknown unknown LYMPHOCYTES_AUTO_ unknown 20211001 unknown unknown unkno wn T unknown 20211001 unknown unknown unknown T unknown 20211001 unknown unknown unknown T unknown 20211001 unknown unknown unknown T unknown 20211001 unknown unknown unknown T unknown 20211001 unknown unknown unknown T unknown 20211001 unknown unknown unknown GFR_-_MDRD unknown 20211001 unknown unknown unknown T unknown 20211001 unknown unknown unknown EOSINOPHILS_AUTO_ unknown 20211001 unknown unknown unkno wn T unknown 20211001 unknown unknown unknown T unknown 20211001 unknown unknown unknown T unknown 20211001 unknown unknown unknown T unknown 20211001 unknown unknown unknown T unknown 20211001 unknown unknown unknown T unknown 20211001 unknown unknown unknown BASOPHILS_AUTO_ unknown 20211001 unknown unknown unknown T unknown 20211001 unknown unknown unknown urea_nitrogen_blood unknown 20210930 unknown unknown unk nown Erythrocytes_volume_in unknown 20210930 unknown unknown unknown _Blood_by_Automated_cou nt Erythrocyte_distributi unknown 20210930 unknown unknown unknown on_width_Ratio_by_Autom ated_count MCV_Entitic_volume_by_ unknown 20210930 unknown unknown unknown Automated_count MCH_Entitic_mass_by_Au unknown 20210930 unknown unknown unknown tomated_count Platelets_volume_in_Bl unknown 20210930 unknown unknown unknown ood_by_Automated_count Platelet_mean_volume_E unknown 20210930 unknown unknown unknown ntitic_volume_in_Blood_ by_Rees-Zuhair neutrophil_count_blood unknown 20210930 unknown unknown unknown monocyte_count_blood unknown 20210930 unknown unknown un known lymphocyte_count_blood unknown 20210930 unknown unknown unknown Hemoglobin_Mass_volume unknown 20210930 unknown unknown unknown _in_Blood eosinophil_count_blood unknown 20210930 unknown unknown unknown Basophils_volume_in_Bl unknown 20210930 unknown unknown unknown ood_by_Manual_count leukocyte_count_blood unknown 20210930 unknown unknown u nknown erythrocyte_RBC_count unknown 20210930 unknown unknown u nknown Leukocytes_volume_in_B unknown 20210930 unknown unknown unknown lood_by_Automated_count Glomerular_Filtration_ unknown 20210930 unknown unknown unknown rate platelet_count unknown 20210930 unknown unknown unknown hemoglobin_blood unknown 20210930 unknown unknown unknow n hematocrit_blood unknown 20210930 unknown unknown unknow n potassium_blood unknown 20210930 unknown unknown unknown Glomerular_filtration_r unknown 20210930 unknown unknown unknown ate_1.73_sq_M.predicted _among_non-blacks_Volum e_Rate_Area_in_Serum_Pl asma_or_Blood_by_Creati nine-based_formula_MDRD _ Hematocrit_Volume_Frac unknown 20210930 unknown unknown unknown tion_of_Blood_by_Automa ted_count carbon_dioxide_serum_t unknown 20210930 unknown unknown unknown otal blood_glucose unknown 20210930 unknown unknown unknown potassium_blood unknown 20210930 unknown unknown unknown magnesium_serum unknown 20210930 unknown unknown unknown mean_corpuscular_volum unknown 20210930 unknown unknown unknown e_RBC Urea_nitrogen_Mass_vol unknown 20210930 unknown unknown unknown ume_in_Serum_or_Plasma Sodium_Moles_volume_in unknown 20210930 unknown unknown unknown _Serum_or_Plasma eosinophil_count_blood unknown 20210930 unknown unknown unknown anion_gap_serum unknown 20210930 unknown unknown unknown mean_platelet_volume unknown 20210930 unknown unknown un known Magnesium_Moles_volume unknown 20210930 unknown unknown unknown _in_Serum_or_Plasma basophil_count_blood unknown 20210930 unknown unknown un known monocyte_count_blood unknown 20210930 unknown unknown un known lymphocyte_count_blood unknown 20210930 unknown unknown unknown neutrophil_count_blood unknown 20210930 unknown unknown unknown Glucose_Mass_volume_in unknown 20210930 unknown unknown unknown _Serum_or_Plasma Creatinine_Mass_volume unknown 20210930 unknown unknown unknown _in_Serum_or_Plasma Chloride_Moles_volume_ unknown 20210930 unknown unknown unknown in_Serum_or_Plasma carbon_dioxide_serum_t unknown 20210930 unknown unknown unknown otal Calcium_Moles_volume_i unknown 20210930 unknown unknown unknown n_Serum_or_Plasma Anion_gap_4_in_Serum_o unknown 20210930 unknown unknown unknown r_Plasma creatinine_serum unknown 20210930 unknown unknown unknow n mean_corpuscular_hemog unknown 20210930 unknown unknown unknown lobin_concentration_rbc sodium_serum unknown 20210930 unknown unknown unknown chloride_serum unknown 20210930 unknown unknown unknown calcium_serum unknown 20210930 unknown unknown unknown mean_corpuscular_hemog unknown 20210930 unknown unknown unknown lobin_RBC red_blood_cell_distrib unknown 20210930 unknown unknown unknown ution_width T unknown [id number] unknown unknown unknown T unknown 20210930 unknown unknown unknown T unknown 20210930 unknown unknown unknown T unknown 20210930 unknown unknown unknown NEUTROPHILS_AUTO_ unknown 20210930 unknown unknown unkno wn T unknown 20210930 unknown unknown unknown T unknown 20210930 unknown unknown unknown T unknown 20210930 unknown unknown unknown MONOCYTES_AUTO_ unknown 20210930 unknown unknown unknown T unknown 20210930 unknown unknown unknown T unknown 20210930 unknown unknown unknown T unknown 20210930 unknown unknown unknown T unknown 20210930 unknown unknown unknown T unknown 20210930 unknown unknown unknown LYMPHOCYTES_AUTO_ unknown 20210930 unknown unknown unkno wn T unknown 20210930 unknown unknown unknown T unknown 20210930 unknown unknown unknown T unknown 20210930 unknown unknown unknown T unknown 20210930 unknown unknown unknown T unknown 20210930 unknown unknown unknown T unknown 20210930 unknown unknown unknown GFR_-_MDRD unknown 20210930 unknown unknown unknown T unknown 20210930 unknown unknown unknown EOSINOPHILS_AUTO_ unknown 20210930 unknown unknown unkno wn T unknown 20210930 unknown unknown unknown T unknown 20210930 unknown unknown unknown T unknown 20210930 unknown unknown unknown T unknown 20210930 unknown unknown unknown T unknown 20210930 unknown unknown unknown T unknown 20210930 unknown unknown unknown BASOPHILS_AUTO_ unknown 20210930 unknown unknown unknown T unknown 20210930 unknown unknown unknown urea_nitrogen_blood unknown 20210929 unknown unknown unk nown Erythrocytes_volume_in unknown 20210929 unknown unknown unknown _Blood_by_Automated_cou nt Erythrocyte_distributi unknown 20210929 unknown unknown unknown on_width_Ratio_by_Autom ated_count MCV_Entitic_volume_by_ unknown 20210929 unknown unknown unknown Automated_count MCH_Entitic_mass_by_Au unknown 20210929 unknown unknown unknown tomated_count Platelets_volume_in_Bl unknown 20210929 unknown unknown unknown ood_by_Automated_count Platelet_mean_volume_E unknown 20210929 unknown unknown unknown ntitic_volume_in_Blood_ by_Rees-Zuhair neutrophil_count_blood unknown 20210929 unknown unknown unknown monocyte_count_blood unknown 20210929 unknown unknown un known lymphocyte_count_blood unknown 20210929 unknown unknown unknown Hemoglobin_Mass_volume unknown 20210929 unknown unknown unknown _in_Blood eosinophil_count_blood unknown 20210929 unknown unknown unknown Basophils_volume_in_Bl unknown 20210929 unknown unknown unknown ood_by_Manual_count leukocyte_count_blood unknown 20210929 unknown unknown u nknown erythrocyte_RBC_count unknown 20210929 unknown unknown u nknown Leukocytes_volume_in_B unknown 20210929 unknown unknown unknown lood_by_Automated_count Glomerular_Filtration_ unknown 20210929 unknown unknown unknown rate platelet_count unknown 20210929 unknown unknown unknown hemoglobin_blood unknown 20210929 unknown unknown unknow n hematocrit_blood unknown 20210929 unknown unknown unknow n potassium_blood unknown 20210929 unknown unknown unknown Glomerular_filtration_r unknown 20210929 unknown unknown unknown ate_1.73_sq_M.predicted _among_non-blacks_Volum e_Rate_Area_in_Serum_Pl asma_or_Blood_by_Creati nine-based_formula_MDRD _ Hematocrit_Volume_Frac unknown 20210929 unknown unknown unknown tion_of_Blood_by_Automa ted_count carbon_dioxide_serum_t unknown 20210929 unknown unknown unknown otal blood_glucose unknown 20210929 unknown unknown unknown potassium_blood unknown 20210929 unknown unknown unknown magnesium_serum unknown 20210929 unknown unknown unknown mean_corpuscular_volum unknown 20210929 unknown unknown unknown e_RBC Urea_nitrogen_Mass_vol unknown 20210929 unknown unknown unknown ume_in_Serum_or_Plasma Sodium_Moles_volume_in unknown 20210929 unknown unknown unknown _Serum_or_Plasma eosinophil_count_blood unknown 20210929 unknown unknown unknown anion_gap_serum unknown 20210929 unknown unknown unknown mean_platelet_volume unknown 20210929 unknown unknown un known Magnesium_Moles_volume unknown 20210929 unknown unknown unknown _in_Serum_or_Plasma basophil_count_blood unknown 20210929 unknown unknown un known monocyte_count_blood unknown 20210929 unknown unknown un known lymphocyte_count_blood unknown 20210929 unknown unknown unknown neutrophil_count_blood unknown 20210929 unknown unknown unknown Glucose_Mass_volume_in unknown 20210929 unknown unknown unknown _Serum_or_Plasma Creatinine_Mass_volume unknown 20210929 unknown unknown unknown _in_Serum_or_Plasma Chloride_Moles_volume_ unknown 20210929 unknown unknown unknown in_Serum_or_Plasma carbon_dioxide_serum_t unknown 20210929 unknown unknown unknown otal Calcium_Moles_volume_i unknown 20210929 unknown unknown unknown n_Serum_or_Plasma Anion_gap_4_in_Serum_o unknown 20210929 unknown unknown unknown r_Plasma creatinine_serum unknown 20210929 unknown unknown unknow n mean_corpuscular_hemog unknown 20210929 unknown unknown unknown lobin_concentration_rbc sodium_serum unknown 20210929 unknown unknown unknown chloride_serum unknown 20210929 unknown unknown unknown calcium_serum unknown 20210929 unknown unknown unknown mean_corpuscular_hemog unknown 20210929 unknown unknown unknown lobin_RBC red_blood_cell_distrib unknown 20210929 unknown unknown unknown ution_width T unknown 20210929 unknown unknown unknown T unknown 20210929 unknown unknown unknown T unknown 20210929 unknown unknown unknown T unknown [id number] unknown unknown unknown NEUTROPHILS_AUTO_ unknown 20210929 unknown unknown unkno wn T unknown [id number] unknown unknown unknown T unknown [id number] unknown unknown unknown T unknown [id number] unknown unknown unknown MONOCYTES_AUTO_ unknown [id number] unknown unknown unknown T unknown [id number] unknown unknown unknown T unknown [id number] unknown unknown unknown T unknown [id number] unknown unknown unknown T unknown [id number] unknown unknown unknown T unknown [id number] unknown unknown unknown LYMPHOCYTES_AUTO_ unknown [id number] unknown unknown unkno wn T unknown [id number] unknown unknown unknown T unknown [id number] unknown unknown unknown T unknown [id number] unknown unknown unknown T unknown [id number] unknown unknown unknown T unknown [id number] unknown unknown unknown T unknown [id number] unknown unknown unknown GFR_-_MDRD unknown [id number] unknown unknown unknown T unknown [id number] unknown unknown unknown EOSINOPHILS_AUTO_ unknown [id number] unknown unknown unkno wn T unknown [id number] unknown unknown unknown T unknown [id number] unknown unknown unknown T unknown [id number] unknown unknown unknown T unknown [id number] unknown unknown unknown T unknown [id number] unknown unknown unknown T unknown [id number] unknown unknown unknown BASOPHILS_AUTO_ unknown 20210929 unknown unknown unknown T unknown [id number] unknown unknown unknown urea_nitrogen_blood unknown 20210928 unknown unknown unk nown Erythrocytes_volume_in unknown 20210928 unknown unknown unknown _Blood_by_Automated_cou nt Erythrocyte_distributi unknown 20210928 unknown unknown unknown on_width_Ratio_by_Autom ated_count MCV_Entitic_volume_by_ unknown 20210928 unknown unknown unknown Automated_count MCH_Entitic_mass_by_Au unknown 20210928 unknown unknown unknown tomated_count Platelets_volume_in_Bl unknown 20210928 unknown unknown unknown ood_by_Automated_count Platelet_mean_volume_E unknown 20210928 unknown unknown unknown ntitic_volume_in_Blood_ by_Rees-[place]air neutrophil_count_blood unknown 20210928 unknown unknown unknown monocyte_count_blood unknown 20210928 unknown unknown un known lymphocyte_count_blood unknown 20210928 unknown unknown unknown Hemoglobin_Mass_volume unknown 20210928 unknown unknown unknown _in_Blood eosinophil_count_blood unknown 20210928 unknown unknown unknown Basophils_volume_in_Bl unknown 20210928 unknown unknown unknown ood_by_Manual_count leukocyte_count_blood unknown 20210928 unknown unknown u nknown erythrocyte_RBC_count unknown 20210928 unknown unknown u nknown Leukocytes_volume_in_B unknown 20210928 unknown unknown unknown lood_by_Automated_count Glomerular_Filtration_ unknown 20210928 unknown unknown unknown rate platelet_count unknown 20210928 unknown unknown unknown hemoglobin_blood unknown 20210928 unknown unknown unknow n hematocrit_blood unknown 20210928 unknown unknown unknow n potassium_blood unknown 20210928 unknown unknown unknown Glomerular_filtration_r unknown 20210928 unknown unknown unknown ate_1.73_sq_M.predicted _among_non-blacks_Volum e_Rate_Area_in_Serum_Pl asma_or_Blood_by_Creati nine-based_formula_MDRD _ Hematocrit_Volume_Frac unknown 20210928 unknown unknown unknown tion_of_Blood_by_Automa ted_count carbon_dioxide_serum_t unknown 20210928 unknown unknown unknown otal blood_glucose unknown 20210928 unknown unknown unknown potassium_blood unknown 20210928 unknown unknown unknown magnesium_serum unknown 20210928 unknown unknown unknown mean_corpuscular_volum unknown 20210928 unknown unknown unknown e_RBC Urea_nitrogen_Mass_vol unknown 20210928 unknown unknown unknown ume_in_Serum_or_Plasma Sodium_Moles_volume_in unknown 20210928 unknown unknown unknown _Serum_or_Plasma eosinophil_count_blood unknown 20210928 unknown unknown unknown anion_gap_serum unknown 20210928 unknown unknown unknown mean_platelet_volume unknown 20210928 unknown unknown un known Magnesium_Moles_volume unknown 20210928 unknown unknown unknown _in_Serum_or_Plasma basophil_count_blood unknown 20210928 unknown unknown un known monocyte_count_blood unknown 20210928 unknown unknown un known lymphocyte_count_blood unknown 20210928 unknown unknown unknown neutrophil_count_blood unknown 20210928 unknown unknown unknown Glucose_Mass_volume_in unknown 20210928 unknown unknown unknown _Serum_or_Plasma Creatinine_Mass_volume unknown 20210928 unknown unknown unknown _in_Serum_or_Plasma Chloride_Moles_volume_ unknown 20210928 unknown unknown unknown in_Serum_or_Plasma carbon_dioxide_serum_t unknown 20210928 unknown unknown unknown otal Calcium_Moles_volume_i unknown 20210928 unknown unknown unknown n_Serum_or_Plasma Anion_gap_4_in_Serum_o unknown 20210928 unknown unknown unknown r_Plasma creatinine_serum unknown 20210928 unknown unknown unknow n mean_corpuscular_hemog unknown 20210928 unknown unknown unknown lobin_concentration_rbc sodium_serum unknown 20210928 unknown unknown unknown chloride_serum unknown 20210928 unknown unknown unknown calcium_serum unknown 20210928 unknown unknown unknown mean_corpuscular_hemog unknown 20210928 unknown unknown unknown lobin_RBC red_blood_cell_distrib unknown 20210928 unknown unknown unknown ution_width T unknown 20210928 unknown unknown unknown T unknown 20210928 unknown unknown unknown T unknown 20210928 unknown unknown unknown T unknown 20210928 unknown unknown unknown NEUTROPHILS_AUTO_ unknown 20210928 unknown unknown unkno wn T unknown 20210928 unknown unknown unknown T unknown 20210928 unknown unknown unknown T unknown 20210928 unknown unknown unknown MONOCYTES_AUTO_ unknown 20210928 unknown unknown unknown T unknown 20210928 unknown unknown unknown T unknown 20210928 unknown unknown unknown T unknown 20210928 unknown unknown unknown T unknown 20210928 unknown unknown unknown T unknown 20210928 unknown unknown unknown LYMPHOCYTES_AUTO_ unknown 20210928 unknown unknown unkno wn T unknown 20210928 unknown unknown unknown T unknown 20210928 unknown unknown unknown T unknown 20210928 unknown unknown unknown T unknown 20210928 unknown unknown unknown T unknown 20210928 unknown unknown unknown T unknown 20210928 unknown unknown unknown GFR_-_MDRD unknown 20210928 unknown unknown unknown T unknown 20210928 unknown unknown unknown EOSINOPHILS_AUTO_ unknown 20210928 unknown unknown unkno wn T unknown 20210928 unknown unknown unknown T unknown 20210928 unknown unknown unknown T unknown 20210928 unknown unknown unknown T unknown 20210928 unknown unknown unknown T unknown 20210928 unknown unknown unknown T unknown 20210928 unknown unknown unknown BASOPHILS_AUTO_ unknown 20210928 unknown unknown unknown T unknown 20210928 unknown unknown unknown urea_nitrogen_blood unknown 20210927 unknown unknown unk nown Erythrocytes_volume_in unknown 20210927 unknown unknown unknown _Blood_by_Automated_cou nt Erythrocyte_distributi unknown 20210927 unknown unknown unknown on_width_Ratio_by_Autom ated_count MCV_Entitic_volume_by_ unknown 20210927 unknown unknown unknown Automated_count MCH_Entitic_mass_by_Au unknown 20210927 unknown unknown unknown tomated_count Platelets_volume_in_Bl unknown 20210927 unknown unknown unknown ood_by_Automated_count Platelet_mean_volume_E unknown 20210927 unknown unknown unknown ntitic_volume_in_Blood_ by_Rees-[place]uhair neutrophil_count_blood unknown 20210927 unknown unknown unknown monocyte_count_blood unknown 20210927 unknown unknown un known lymphocyte_count_blood unknown 20210927 unknown unknown unknown Hemoglobin_Mass_volume unknown 20210927 unknown unknown unknown _in_Blood eosinophil_count_blood unknown 20210927 unknown unknown unknown Basophils_volume_in_Bl unknown 20210927 unknown unknown unknown ood_by_Manual_count leukocyte_count_blood unknown 20210927 unknown unknown u nknown erythrocyte_RBC_count unknown 20210927 unknown unknown u nknown Leukocytes_volume_in_B unknown 20210927 unknown unknown unknown lood_by_Automated_count Glomerular_Filtration_ unknown 20210927 unknown unknown unknown rate platelet_count unknown 20210927 unknown unknown unknown hemoglobin_blood unknown 20210927 unknown unknown unknow n hematocrit_blood unknown 20210927 unknown unknown unknow n potassium_blood unknown 20210927 unknown unknown unknown Glomerular_filtration_r unknown 20210927 unknown unknown unknown ate_1.73_sq_M.predicted _among_non-blacks_Volum e_Rate_Area_in_Serum_Pl asma_or_Blood_by_Creati nine-based_formula_MDRD _ Hematocrit_Volume_Frac unknown 20210927 unknown unknown unknown tion_of_Blood_by_Automa ted_count carbon_dioxide_serum_t unknown 20210927 unknown unknown unknown otal blood_glucose unknown 20210927 unknown unknown unknown potassium_blood unknown 20210927 unknown unknown unknown magnesium_serum unknown 20210927 unknown unknown unknown mean_corpuscular_volum unknown 20210927 unknown unknown unknown e_RBC Urea_nitrogen_Mass_vol unknown 20210927 unknown unknown unknown ume_in_Serum_or_Plasma Sodium_Moles_volume_in unknown 20210927 unknown unknown unknown _Serum_or_Plasma eosinophil_count_blood unknown 20210927 unknown unknown unknown anion_gap_serum unknown 20210927 unknown unknown unknown mean_platelet_volume unknown 20210927 unknown unknown un known Magnesium_Moles_volume unknown 20210927 unknown unknown unknown _in_Serum_or_Plasma basophil_count_blood unknown 20210927 unknown unknown un known monocyte_count_blood unknown 20210927 unknown unknown un known lymphocyte_count_blood unknown 20210927 unknown unknown unknown neutrophil_count_blood unknown 20210927 unknown unknown unknown Glucose_Mass_volume_in unknown 20210927 unknown unknown unknown _Serum_or_Plasma Creatinine_Mass_volume unknown 20210927 unknown unknown unknown _in_Serum_or_Plasma Chloride_Moles_volume_ unknown 20210927 unknown unknown unknown in_Serum_or_Plasma carbon_dioxide_serum_t unknown 20210927 unknown unknown unknown otal Calcium_Moles_volume_i unknown 20210927 unknown unknown unknown n_Serum_or_Plasma Anion_gap_4_in_Serum_o unknown 20210927 unknown unknown unknown r_Plasma creatinine_serum unknown 20210927 unknown unknown unknow n mean_corpuscular_hemog unknown 20210927 unknown unknown unknown lobin_concentration_rbc sodium_serum unknown 20210927 unknown unknown unknown chloride_serum unknown 20210927 unknown unknown unknown calcium_serum unknown 20210927 unknown unknown unknown mean_corpuscular_hemog unknown 20210927 unknown unknown unknown lobin_RBC red_blood_cell_distrib unknown 20210927 unknown unknown unknown ution_width T unknown 20210927 unknown unknown unknown T unknown 20210927 unknown unknown unknown T unknown 20210927 unknown unknown unknown T unknown 20210927 unknown unknown unknown NEUTROPHILS_AUTO_ unknown 20210927 unknown unknown unkno wn T unknown 20210927 unknown unknown unknown T unknown 20210927 unknown unknown unknown T unknown 20210927 unknown unknown unknown MONOCYTES_AUTO_ unknown 20210927 unknown unknown unknown T unknown 20210927 unknown unknown unknown T unknown 20210927 unknown unknown unknown T unknown 20210927 unknown unknown unknown T unknown 20210927 unknown unknown unknown T unknown 20210927 unknown unknown unknown LYMPHOCYTES_AUTO_ unknown 20210927 unknown unknown unkno wn T unknown 20210927 unknown unknown unknown T unknown 20210927 unknown unknown unknown T unknown 20210927 unknown unknown unknown T unknown 20210927 unknown unknown unknown T unknown 20210927 unknown unknown unknown T unknown 20210927 unknown unknown unknown GFR_-_MDRD unknown 20210927 unknown unknown unknown T unknown 20210927 unknown unknown unknown EOSINOPHILS_AUTO_ unknown 20210927 unknown unknown unkno wn T unknown 20210927 unknown unknown unknown T unknown 20210927 unknown unknown unknown T unknown 20210927 unknown unknown unknown T unknown 20210927 unknown unknown unknown T unknown 20210927 unknown unknown unknown T unknown 20210927 unknown unknown unknown BASOPHILS_AUTO_ unknown 20210927 unknown unknown unknown T unknown 20210927 unknown unknown unknown platelet_count_estimat unknown 20210926 unknown unknown unknown e urea_nitrogen_blood unknown 20210926 unknown unknown unk nown Erythrocytes_volume_in unknown 20210926 unknown unknown unknown _Blood_by_Automated_cou nt Erythrocyte_distributi unknown 20210926 unknown unknown unknown on_width_Ratio_by_Autom ated_count MCV_Entitic_volume_by_ unknown 20210926 unknown unknown unknown Automated_count MCH_Entitic_mass_by_Au unknown 20210926 unknown unknown unknown tomated_count Platelets_volume_in_Bl unknown 20210926 unknown unknown unknown ood_by_Automated_count Platelet_mean_volume_E unknown 20210926 unknown unknown unknown ntitic_volume_in_Blood_ by_Rees-Zuhair neutrophil_count_blood unknown 20210926 unknown unknown unknown monocyte_count_blood unknown 20210926 unknown unknown un known lymphocyte_count_blood unknown 20210926 unknown unknown unknown Hemoglobin_Mass_volume unknown 20210926 unknown unknown unknown _in_Blood eosinophil_count_blood unknown 20210926 unknown unknown unknown Basophils_volume_in_Bl unknown [id number] unknown unknown unknown ood_by_Manual_count leukocyte_count_blood unknown 20210926 unknown unknown u nknown erythrocyte_RBC_count unknown 20210926 unknown unknown u nknown Leukocytes_volume_in_B unknown 20210926 unknown unknown unknown lood_by_Automated_count Glomerular_Filtration_ unknown 20210926 unknown unknown unknown rate platelet_count unknown 20210926 unknown unknown unknown hemoglobin_blood unknown 20210926 unknown unknown unknow n hematocrit_blood unknown 20210926 unknown unknown unknow n potassium_blood unknown 20210926 unknown unknown unknown Glomerular_filtration_r unknown 20210926 unknown unknown unknown ate_1.73_sq_M.predicted _among_non-blacks_Volum e_Rate_Area_in_Serum_Pl asma_or_Blood_by_Creati nine-based_formula_MDRD _ Hemoglobin_A1c_Hemoglo unknown 20210926 unknown unknown unknown bin_total_in_Blood_-_ Hematocrit_Volume_Frac unknown 20210926 unknown unknown unknown tion_of_Blood_by_Automa ted_count carbon_dioxide_serum_t unknown 20210926 unknown unknown unknown otal blood_glucose unknown 20210926 unknown unknown unknown potassium_blood unknown 20210926 unknown unknown unknown magnesium_serum unknown 20210926 unknown unknown unknown mean_corpuscular_volum unknown 20210926 unknown unknown unknown e_RBC platelet_count_estimat unknown 20210926 unknown unknown unknown e Urea_nitrogen_Mass_vol unknown 20210926 unknown unknown unknown ume_in_Serum_or_Plasma Sodium_Moles_volume_in unknown 20210926 unknown unknown unknown _Serum_or_Plasma eosinophil_count_blood unknown 20210926 unknown unknown unknown hemoglobin_A1C_blood_a unknown 20210926 unknown unknown unknown s_of_total_hemoglobin anion_gap_serum unknown 20210926 unknown unknown unknown mean_platelet_volume unknown 20210926 unknown unknown un known Glucose_mean_value_Mas unknown 20210926 unknown unknown unknown s_volume_in_Blood_Estim ated_from_glycated_hemo globin Magnesium_Moles_volume unknown 20210926 unknown unknown unknown _in_Serum_or_Plasma basophil_count_blood unknown 20210926 unknown unknown un known monocyte_count_blood unknown 20210926 unknown unknown un known lymphocyte_count_blood unknown [id number] unknown unknown unknown neutrophil_count_blood unknown [id number] unknown unknown unknown Glucose_Mass_volume_in unknown [id number] unknown unknown unknown _Serum_or_Plasma Creatinine_Mass_volume unknown [id number] unknown unknown unknown _in_Serum_or_Plasma Chloride_Moles_volume_ unknown [id number] unknown unknown unknown in_Serum_or_Plasma carbon_dioxide_serum_t unknown [id number] unknown unknown unknown otal Calcium_Moles_volume_i unknown [id number] unknown unknown unknown n_Serum_or_Plasma Anion_gap_4_in_Serum_o unknown [id number] unknown unknown unknown r_Plasma Estimated_Average_Gluc unknown [id number] unknown unknown unknown ose creatinine_serum unknown [id number] unknown unknown unknow n mean_corpuscular_hemog unknown [id number] unknown unknown unknown lobin_concentration_rbc sodium_serum unknown [id number] unknown unknown unknown chloride_serum unknown [id number] unknown unknown unknown calcium_serum unknown [id number] unknown unknown unknown mean_corpuscular_hemog unknown [id number] unknown unknown unknown lobin_RBC red_blood_cell_distrib unknown [id number] unknown unknown unknown ution_width Slide_Interpretation unknown [id number] unknown unknown un known T unknown [id number] unknown unknown unknown T unknown [id number] unknown unknown unknown SLIDE_REVIEW_ unknown [id number] unknown unknown unknown T unknown [id number] unknown unknown unknown T unknown [id number] unknown unknown unknown T unknown [id number] unknown unknown unknown PLATELET_ESTIMATE_MANU unknown [id number] unknown unknown unknown AL T unknown [id number] unknown unknown unknown NEUTROPHILS_AUTO_ unknown [id number] unknown unknown unkno wn T unknown [id number] unknown unknown unknown T unknown [id number] unknown unknown unknown T unknown [id number] unknown unknown unknown MONOCYTES_AUTO_ unknown [id number] unknown unknown unknown T unknown [id number] unknown unknown unknown T unknown [id number] unknown unknown unknown T unknown [id number] unknown unknown unknown MEAN_CORPUSCULAR_VOLUM unknown [id number] unknown unknown unknown E T unknown [id number] unknown unknown unknown T unknown [id number] unknown unknown unknown LYMPHOCYTES_AUTO_ unknown [id number] unknown unknown unkno wn T unknown [id number] unknown unknown unknown T unknown [id number] unknown unknown unknown T unknown [id number] unknown unknown unknown T unknown [id number] unknown unknown unknown T unknown [id number] unknown unknown unknown T unknown [id number] unknown unknown unknown GFR_-_MDRD unknown 20210926 unknown unknown unknown T unknown 20210926 unknown unknown unknown T unknown 20210926 unknown unknown unknown EOSINOPHILS_AUTO_ unknown 20210926 unknown unknown unkno wn T unknown 20210926 unknown unknown unknown ESTIMATED_AVERAGE_GLUC unknown 20210926 unknown unknown unknown OSE T unknown 20210926 unknown unknown unknown T unknown 20210926 unknown unknown unknown T unknown 20210926 unknown unknown unknown T unknown 20210926 unknown unknown unknown T unknown 20210926 unknown unknown unknown BASOPHILS_AUTO_ unknown 20210926 unknown unknown unknown T unknown 20210926 unknown unknown unknown T unknown 20210926 unknown unknown unknown HEMOGLOBIN_A1c_ unknown 20210926 unknown unknown unknown urea_nitrogen_blood unknown 20210925 unknown unknown unk nown Erythrocytes_volume_in unknown 20210925 unknown unknown unknown _Blood_by_Automated_cou nt Erythrocyte_distributi unknown 20210925 unknown unknown unknown on_width_Ratio_by_Autom ated_count MCV_Entitic_volume_by_ unknown 20210925 unknown unknown unknown Automated_count MCH_Entitic_mass_by_Au unknown 20210925 unknown unknown unknown tomated_count Platelets_volume_in_Bl unknown 20210925 unknown unknown unknown ood_by_Automated_count Platelet_mean_volume_E unknown 20210925 unknown unknown unknown ntitic_volume_in_Blood_ by_Rees-Zuhair neutrophil_count_blood unknown 20210925 unknown unknown unknown monocyte_count_blood unknown 20210925 unknown unknown un known lymphocyte_count_blood unknown 20210925 unknown unknown unknown Hemoglobin_Mass_volume unknown 20210925 unknown unknown unknown _in_Blood eosinophil_count_blood unknown 20210925 unknown unknown unknown Basophils_volume_in_Bl unknown 20210925 unknown unknown unknown ood_by_Manual_count leukocyte_count_blood unknown 20210925 unknown unknown u nknown erythrocyte_RBC_count unknown 20210925 unknown unknown u nknown Leukocytes_volume_in_B unknown 20210925 unknown unknown unknown lood_by_Automated_count Glomerular_Filtration_ unknown 20210925 unknown unknown unknown rate platelet_count unknown 20210925 unknown unknown unknown hemoglobin_blood unknown 20210925 unknown unknown unknow n hematocrit_blood unknown 20210925 unknown unknown unknow n potassium_blood unknown 20210925 unknown unknown unknown Glomerular_filtration_r unknown 20210925 unknown unknown unknown ate_1.73_sq_M.predicted _among_non-blacks_Volum e_Rate_Area_in_Serum_Pl asma_or_Blood_by_Creati nine-based_formula_MDRD _ Hematocrit_Volume_Frac unknown 20210925 unknown unknown unknown tion_of_Blood_by_Automa ted_count carbon_dioxide_serum_t unknown 20210925 unknown unknown unknown otal blood_glucose unknown 20210925 unknown unknown unknown potassium_blood unknown 20210925 unknown unknown unknown mean_corpuscular_volum unknown 20210925 unknown unknown unknown e_RBC Urea_nitrogen_Mass_vol unknown 20210925 unknown unknown unknown ume_in_Serum_or_Plasma Sodium_Moles_volume_in unknown 20210925 unknown unknown unknown _Serum_or_Plasma eosinophil_count_blood unknown 20210925 unknown unknown unknown anion_gap_serum unknown 20210925 unknown unknown unknown mean_platelet_volume unknown 20210925 unknown unknown un known basophil_count_blood unknown 20210925 unknown unknown un known monocyte_count_blood unknown 20210925 unknown unknown un known lymphocyte_count_blood unknown 20210925 unknown unknown unknown neutrophil_count_blood unknown 20210925 unknown unknown unknown B-type_natriuretic_pep unknown 20210925 unknown unknown unknown tide_brain_natriuretic_ peptide_ Glucose_Mass_volume_in unknown 20210925 unknown unknown unknown _Serum_or_Plasma Creatinine_Mass_volume unknown 20210925 unknown unknown unknown _in_Serum_or_Plasma Chloride_Moles_volume_ unknown 20210925 unknown unknown unknown in_Serum_or_Plasma carbon_dioxide_serum_t unknown 20210925 unknown unknown unknown otal Calcium_Moles_volume_i unknown 20210925 unknown unknown unknown n_Serum_or_Plasma Anion_gap_4_in_Serum_o unknown 20210925 unknown unknown unknown r_Plasma creatinine_serum unknown 20210925 unknown unknown unknow n mean_corpuscular_hemog unknown 20210925 unknown unknown unknown lobin_concentration_rbc sodium_serum unknown 20210925 unknown unknown unknown chloride_serum unknown 20210925 unknown unknown unknown calcium_serum unknown 20210925 unknown unknown unknown mean_corpuscular_hemog unknown 20210925 unknown unknown unknown lobin_RBC red_blood_cell_distrib unknown 20210925 unknown unknown unknown ution_width T unknown 20210925 unknown unknown unknown T unknown 20210925 unknown unknown unknown RED_CELL_DISTRIBUTION_ unknown 20210925 unknown unknown unknown WIDTH T unknown 20210925 unknown unknown unknown T unknown 20210925 unknown unknown unknown NEUTROPHILS_AUTO_ unknown 20210925 unknown unknown unkno wn T unknown 20210925 unknown unknown unknown T unknown 20210925 unknown unknown unknown T unknown 20210925 unknown unknown unknown MONOCYTES_AUTO_ unknown 20210925 unknown unknown unknown T unknown 20210925 unknown unknown unknown T unknown 20210925 unknown unknown unknown T unknown 20210925 unknown unknown unknown T unknown 20210925 unknown unknown unknown LYMPHOCYTES_AUTO_ unknown 20210925 unknown unknown unkno wn T unknown 20210925 unknown unknown unknown T unknown 20210925 unknown unknown unknown T unknown 20210925 unknown unknown unknown T unknown 20210925 unknown unknown unknown T unknown 20210925 unknown unknown unknown T unknown 20210925 unknown unknown unknown GFR_-_MDRD unknown 20210925 unknown unknown unknown T unknown 20210925 unknown unknown unknown EOSINOPHILS_AUTO_ unknown 20210925 unknown unknown unkno wn T unknown 20210925 unknown unknown unknown T unknown 20210925 unknown unknown unknown T unknown 20210925 unknown unknown unknown T unknown [id number] unknown unknown unknown CHLORIDE unknown 20210925 unknown unknown unknown T unknown 20210925 unknown unknown unknown T unknown 20210925 unknown unknown unknown T unknown 20210925 unknown unknown unknown BASOPHILS_AUTO_ unknown 20210925 unknown unknown unknown T unknown 20210925 unknown unknown unknown urea_nitrogen_blood unknown 20210924 unknown unknown unk nown Erythrocytes_volume_in unknown 20210924 unknown unknown unknown _Blood_by_Automated_cou nt Erythrocyte_distributi unknown 20210924 unknown unknown unknown on_width_Ratio_by_Autom ated_count MCV_Entitic_volume_by_ unknown 20210924 unknown unknown unknown Automated_count MCH_Entitic_mass_by_Au unknown 20210924 unknown unknown unknown tomated_count Platelets_volume_in_Bl unknown 20210924 unknown unknown unknown ood_by_Automated_count Platelet_mean_volume_E unknown 20210924 unknown unknown unknown ntitic_volume_in_Blood_ by_Rees-Zuhair neutrophil_count_blood unknown 20210924 unknown unknown unknown monocyte_count_blood unknown 20210924 unknown unknown un known lymphocyte_count_blood unknown 20210924 unknown unknown unknown Hemoglobin_Mass_volume unknown 20210924 unknown unknown unknown _in_Blood eosinophil_count_blood unknown 20210924 unknown unknown unknown Basophils_volume_in_Bl unknown 20210924 unknown unknown unknown ood_by_Manual_count leukocyte_count_blood unknown 20210924 unknown unknown u nknown erythrocyte_RBC_count unknown 20210924 unknown unknown u nknown Leukocytes_volume_in_B unknown 20210924 unknown unknown unknown lood_by_Automated_count Glomerular_Filtration_ unknown 20210924 unknown unknown unknown rate platelet_count unknown 20210924 unknown unknown unknown hemoglobin_blood unknown 20210924 unknown unknown unknow n hematocrit_blood unknown 20210924 unknown unknown unknow n potassium_blood unknown 20210924 unknown unknown unknown potassium_blood unknown 20210924 unknown unknown unknown Glomerular_filtration_r unknown 20210924 unknown unknown unknown ate_1.73_sq_M.predicted _among_non-blacks_Volum e_Rate_Area_in_Serum_Pl asma_or_Blood_by_Creati nine-based_formula_MDRD _ Hematocrit_Volume_Frac unknown 20210924 unknown unknown unknown tion_of_Blood_by_Automa ted_count carbon_dioxide_serum_t unknown 20210924 unknown unknown unknown otal blood_glucose unknown 20210924 unknown unknown unknown potassium_blood unknown 20210924 unknown unknown unknown potassium_blood unknown 20210924 unknown unknown unknown magnesium_serum unknown 20210924 unknown unknown unknown mean_corpuscular_volum unknown 20210924 unknown unknown unknown e_RBC Urea_nitrogen_Mass_vol unknown 20210924 unknown unknown unknown ume_in_Serum_or_Plasma Sodium_Moles_volume_in unknown 20210924 unknown unknown unknown _Serum_or_Plasma eosinophil_count_blood unknown 20210924 unknown unknown unknown anion_gap_serum unknown 20210924 unknown unknown unknown mean_platelet_volume unknown [id number] unknown unknown un known Magnesium_Moles_volume unknown 20210924 unknown unknown unknown _in_Serum_or_Plasma basophil_count_blood unknown 20210924 unknown unknown un known monocyte_count_blood unknown 20210924 unknown unknown un known lymphocyte_count_blood unknown 20210924 unknown unknown unknown neutrophil_count_blood unknown 20210924 unknown unknown unknown Glucose_Mass_volume_in unknown [id number] unknown unknown unknown _Serum_or_Plasma Creatinine_Mass_volume unknown [id number] unknown unknown unknown _in_Serum_or_Plasma Chloride_Moles_volume_ unknown [id number] unknown unknown unknown in_Serum_or_Plasma carbon_dioxide_serum_t unknown [id number] unknown unknown unknown otal Calcium_Moles_volume_i unknown [id number] unknown unknown unknown n_Serum_or_Plasma Anion_gap_4_in_Serum_o unknown [id number] unknown unknown unknown r_Plasma creatinine_serum unknown [id number] unknown unknown unknow n mean_corpuscular_hemog unknown [id number] unknown unknown unknown lobin_concentration_rbc sodium_serum unknown [id number] unknown unknown unknown chloride_serum unknown [id number] unknown unknown unknown calcium_serum unknown 40562476 unknown unknown unknown mean_corpuscular_hemog unknown [id number] unknown unknown unknown lobin_RBC red_blood_cell_distrib unknown [id number] unknown unknown unknown ution_width T unknown [id number] unknown unknown unknown T unknown 03789108 unknown unknown unknown T unknown 12867721 unknown unknown unknown T unknown [id number] unknown unknown unknown NEUTROPHILS_AUTO_ unknown [id number] unknown unknown unkno wn T unknown [id number] unknown unknown unknown T unknown [id number] unknown unknown unknown T unknown [id number] unknown unknown unknown MONOCYTES_AUTO_ unknown [id number] unknown unknown unknown T unknown [id number] unknown unknown unknown T unknown [id number] unknown unknown unknown T unknown [id number] unknown unknown unknown T unknown [id number] unknown unknown unknown T unknown [id number] unknown unknown unknown LYMPHOCYTES_AUTO_ unknown [id number] unknown unknown unkno wn T unknown [id number] unknown unknown unknown T unknown [id number] unknown unknown unknown T unknown [id number] unknown unknown unknown T unknown [id number] unknown unknown unknown T unknown [id number] unknown unknown unknown T unknown [id number] unknown unknown unknown T unknown [id number] unknown unknown unknown GFR_-_MDRD unknown [id number] unknown unknown unknown T unknown [id number] unknown unknown unknown EOSINOPHILS_AUTO_ unknown [id number] unknown unknown unkno wn T unknown [id number] unknown unknown unknown T unknown [id number] unknown unknown unknown T unknown [id number] unknown unknown unknown T unknown 22326879 unknown unknown unknown T unknown [id number] unknown unknown unknown T unknown [id number] unknown unknown unknown BASOPHILS_AUTO_ unknown [id number] unknown unknown unknown T unknown [id number] unknown unknown unknown urea_nitrogen_blood unknown 20210923 unknown unknown unk nown Erythrocytes_volume_in unknown 20210923 unknown unknown unknown _Blood_by_Automated_cou nt Erythrocyte_distributi unknown 20210923 unknown unknown unknown on_width_Ratio_by_Autom ated_count MCV_Entitic_volume_by_ unknown 20210923 unknown unknown unknown Automated_count MCH_Entitic_mass_by_Au unknown 20210923 unknown unknown unknown tomated_count Platelets_volume_in_Bl unknown 20210923 unknown unknown unknown ood_by_Automated_count Platelet_mean_volume_E unknown 20210923 unknown unknown unknown ntitic_volume_in_Blood_ by_Rees-Zuhair neutrophil_count_blood unknown 20210923 unknown unknown unknown monocyte_count_blood unknown 20210923 unknown unknown un known lymphocyte_count_blood unknown 20210923 unknown unknown unknown Hemoglobin_Mass_volume unknown 20210923 unknown unknown unknown _in_Blood eosinophil_count_blood unknown 20210923 unknown unknown unknown Basophils_volume_in_Bl unknown 20210923 unknown unknown unknown ood_by_Manual_count leukocyte_count_blood unknown 20210923 unknown unknown u nknown erythrocyte_RBC_count unknown 20210923 unknown unknown u nknown Leukocytes_volume_in_B unknown 20210923 unknown unknown unknown lood_by_Automated_count Glomerular_Filtration_ unknown 20210923 unknown unknown unknown rate platelet_count unknown 20210923 unknown unknown unknown hemoglobin_blood unknown 20210923 unknown unknown unknow n hematocrit_blood unknown 20210923 unknown unknown unknow n potassium_blood unknown 20210923 unknown unknown unknown Glomerular_filtration_r unknown 20210923 unknown unknown unknown ate_1.73_sq_M.predicted _among_non-blacks_Volum e_Rate_Area_in_Serum_Pl asma_or_Blood_by_Creati nine-based_formula_MDRD _ Hematocrit_Volume_Frac unknown 20210923 unknown unknown unknown tion_of_Blood_by_Automa ted_count carbon_dioxide_serum_t unknown 20210923 unknown unknown unknown otal blood_glucose unknown 20210923 unknown unknown unknown potassium_blood unknown 20210923 unknown unknown unknown mean_corpuscular_volum unknown 20210923 unknown unknown unknown e_RBC Urea_nitrogen_Mass_vol unknown [id number] unknown unknown unknown ume_in_Serum_or_Plasma Sodium_Moles_volume_in unknown [id number] unknown unknown unknown _Serum_or_Plasma eosinophil_count_blood unknown [id number] unknown unknown unknown anion_gap_serum unknown 20127881 unknown unknown unknown mean_platelet_volume unknown [id number] unknown unknown un known basophil_count_blood unknown [id number] unknown unknown un known monocyte_count_blood unknown [id number] unknown unknown un known lymphocyte_count_blood unknown [id number] unknown unknown unknown neutrophil_count_blood unknown [id number] unknown unknown unknown Glucose_Mass_volume_in unknown 56609051 unknown unknown unknown _Serum_or_Plasma Creatinine_Mass_volume unknown [id number] unknown unknown unknown _in_Serum_or_Plasma Chloride_Moles_volume_ unknown 68041955 unknown unknown unknown in_Serum_or_Plasma carbon_dioxide_serum_t unknown 20210923 unknown unknown unknown otal Calcium_Moles_volume_i unknown [id number] unknown unknown unknown n_Serum_or_Plasma Anion_gap_4_in_Serum_o unknown [id number] unknown unknown unknown r_Plasma creatinine_serum unknown [id number] unknown unknown unknow n mean_corpuscular_hemog unknown [id number] unknown unknown unknown lobin_concentration_rbc sodium_serum unknown 34310137 unknown unknown unknown chloride_serum unknown [id number] unknown unknown unknown calcium_serum unknown [id number] unknown unknown unknown mean_corpuscular_hemog unknown [id number] unknown unknown unknown lobin_RBC red_blood_cell_distrib unknown [id number] unknown unknown unknown ution_width T unknown 20210923 unknown unknown unknown T unknown [id number] unknown unknown unknown T unknown [id number] unknown unknown unknown T unknown [id number] unknown unknown unknown NEUTROPHILS_AUTO_ unknown [id number] unknown unknown unkno wn T unknown [id number] unknown unknown unknown T unknown [id number] unknown unknown unknown T unknown [id number] unknown unknown unknown MONOCYTES_AUTO_ unknown 20210923 unknown unknown unknown T unknown [id number] unknown unknown unknown T unknown [id number] unknown unknown unknown T unknown 20210923 unknown unknown unknown T unknown [id number] unknown unknown unknown LYMPHOCYTES_AUTO_ unknown [id number] unknown unknown unkno wn T unknown [id number] unknown unknown unknown T unknown 20210923 unknown unknown unknown T unknown [id number] unknown unknown unknown T unknown 20210923 unknown unknown unknown T unknown 20210923 unknown unknown unknown T unknown 20210923 unknown unknown unknown GFR_-_MDRD unknown 20210923 unknown unknown unknown T unknown 20210923 unknown unknown unknown EOSINOPHILS_AUTO_ unknown 20210923 unknown unknown unkno wn T unknown 20210923 unknown unknown unknown T unknown 20210923 unknown unknown unknown T unknown 20210923 unknown unknown unknown T unknown 20210923 unknown unknown unknown T unknown 20210923 unknown unknown unknown T unknown 20210923 unknown unknown unknown BASOPHILS_AUTO_ unknown 20210923 unknown unknown unknown T unknown 20210923 unknown unknown unknown urea_nitrogen_blood unknown 20210922 unknown unknown unk nown Erythrocytes_volume_in unknown 20210922 unknown unknown unknown _Blood_by_Automated_cou nt Erythrocyte_distributi unknown 20210922 unknown unknown unknown on_width_Ratio_by_Autom ated_count MCV_Entitic_volume_by_ unknown 20210922 unknown unknown unknown Automated_count MCH_Entitic_mass_by_Au unknown 20210922 unknown unknown unknown tomated_count Platelets_volume_in_Bl unknown 20210922 unknown unknown unknown ood_by_Automated_count Platelet_mean_volume_E unknown 20210922 unknown unknown unknown ntitic_volume_in_Blood_ by_Rees-Zuhair neutrophil_count_blood unknown 20210922 unknown unknown unknown monocyte_count_blood unknown 20210922 unknown unknown un known lymphocyte_count_blood unknown 20210922 unknown unknown unknown Hemoglobin_Mass_volume unknown 20210922 unknown unknown unknown _in_Blood eosinophil_count_blood unknown 20210922 unknown unknown unknown Basophils_volume_in_Bl unknown 20210922 unknown unknown unknown ood_by_Manual_count leukocyte_count_blood unknown 20210922 unknown unknown u nknown erythrocyte_RBC_count unknown 20210922 unknown unknown u nknown Leukocytes_volume_in_B unknown [id number] unknown unknown unknown lood_by_Automated_count Glomerular_Filtration_ unknown [id number] unknown unknown unknown rate platelet_count unknown [id number] unknown unknown unknown hemoglobin_blood unknown 20210922 unknown unknown unknow n hematocrit_blood unknown 20210922 unknown unknown unknow n potassium_blood unknown 20210922 unknown unknown unknown Glomerular_filtration_r unknown [id number] unknown unknown unknown ate_1.73_sq_M.predicted _among_non-blacks_Volum e_Rate_Area_in_Serum_Pl asma_or_Blood_by_Creati nine-based_formula_MDRD _ Hematocrit_Volume_Frac unknown [id number] unknown unknown unknown tion_of_Blood_by_Automa ted_count triglyceride_serum_fas unknown 20210922 unknown unknown unknown ting carbon_dioxide_serum_t unknown 20210922 unknown unknown unknown otal blood_glucose unknown 20210922 unknown unknown unknown potassium_blood unknown 20210922 unknown unknown unknown mean_corpuscular_volum unknown 20210922 unknown unknown unknown e_RBC Urea_nitrogen_Mass_vol unknown 20210922 unknown unknown unknown ume_in_Serum_or_Plasma Sodium_Moles_volume_in unknown 20210922 unknown unknown unknown _Serum_or_Plasma eosinophil_count_blood unknown 20210922 unknown unknown unknown anion_gap_serum unknown 20210922 unknown unknown unknown mean_platelet_volume unknown 20210922 unknown unknown un known Triglyceride_Mass_volu unknown 20210922 unknown unknown unknown me_in_Serum_or_Plasma_- _mg_dL basophil_count_blood unknown 20210922 unknown unknown un known monocyte_count_blood unknown [id number] unknown unknown un known lymphocyte_count_blood unknown [id number] unknown unknown unknown neutrophil_count_blood unknown [id number] unknown unknown unknown Glucose_Mass_volume_in unknown [id number] unknown unknown unknown _Serum_or_Plasma Creatinine_Mass_volume unknown 20210922 unknown unknown unknown _in_Serum_or_Plasma Chloride_Moles_volume_ unknown [id number] unknown unknown unknown in_Serum_or_Plasma carbon_dioxide_serum_t unknown 20210922 unknown unknown unknown otal Calcium_Moles_volume_i unknown 20210922 unknown unknown unknown n_Serum_or_Plasma Anion_gap_4_in_Serum_o unknown 20210922 unknown unknown unknown r_Plasma creatinine_serum unknown 20210922 unknown unknown unknow n mean_corpuscular_hemog unknown 20210922 unknown unknown unknown lobin_concentration_rbc sodium_serum unknown 20210922 unknown unknown unknown chloride_serum unknown 20210922 unknown unknown unknown calcium_serum unknown 20210922 unknown unknown unknown mean_corpuscular_hemog unknown 20210922 unknown unknown unknown lobin_RBC red_blood_cell_distrib unknown 20210922 unknown unknown unknown ution_width T unknown 20210922 unknown unknown unknown T unknown 20210922 unknown unknown unknown T unknown [id number] unknown unknown unknown T unknown [id number] unknown unknown unknown T unknown [id number] unknown unknown unknown NEUTROPHILS_AUTO_ unknown 20210922 unknown unknown unkno wn T unknown 20210922 unknown unknown unknown T unknown [id number] unknown unknown unknown T unknown [id number] unknown unknown unknown MONOCYTES_AUTO_ unknown [id number] unknown unknown unknown T unknown [id number] unknown unknown unknown T unknown [id number] unknown unknown unknown T unknown [id number] unknown unknown unknown T unknown [id number] unknown unknown unknown LYMPHOCYTES_AUTO_ unknown [id number] unknown unknown unkno wn T unknown 20210922 unknown unknown unknown T unknown 20210922 unknown unknown unknown T unknown 20210922 unknown unknown unknown T unknown 20210922 unknown unknown unknown T unknown [id number] unknown unknown unknown T unknown 20210922 unknown unknown unknown GFR_-_MDRD unknown [id number] unknown unknown unknown T unknown [id number] unknown unknown unknown EOSINOPHILS_AUTO_ unknown 20210922 unknown unknown unkno wn T unknown 20210922 unknown unknown unknown T unknown [id number] unknown unknown unknown T unknown 20210922 unknown unknown unknown T unknown [id number] unknown unknown unknown T unknown [id number] unknown unknown unknown T unknown [id number] unknown unknown unknown BASOPHILS_AUTO_ unknown 20210922 unknown unknown unknown T unknown 20210922 unknown unknown unknown urea_nitrogen_blood unknown 20210921 unknown unknown unk nown Erythrocytes_volume_in unknown 20210921 unknown unknown unknown _Blood_by_Automated_cou nt Erythrocyte_distributi unknown 20210921 unknown unknown unknown on_width_Ratio_by_Autom ated_count MCV_Entitic_volume_by_ unknown [id number] unknown unknown unknown Automated_count MCH_Entitic_mass_by_Au unknown [id number] unknown unknown unknown tomated_count Platelets_volume_in_Bl unknown 20210921 unknown unknown unknown ood_by_Automated_count Platelet_mean_volume_E unknown 20210921 unknown unknown unknown ntitic_volume_in_Blood_ by_Rees-Zuhair neutrophil_count_blood unknown 20210921 unknown unknown unknown monocyte_count_blood unknown 20210921 unknown unknown un known lymphocyte_count_blood unknown 20210921 unknown unknown unknown Hemoglobin_Mass_volume unknown 20210921 unknown unknown unknown _in_Blood eosinophil_count_blood unknown 20210921 unknown unknown unknown Basophils_volume_in_Bl unknown 20210921 unknown unknown unknown ood_by_Manual_count leukocyte_count_blood unknown 20210921 unknown unknown u nknown erythrocyte_RBC_count unknown 20210921 unknown unknown u nknown Leukocytes_volume_in_B unknown 20210921 unknown unknown unknown lood_by_Automated_count Glomerular_Filtration_ unknown [id number] unknown unknown unknown rate platelet_count unknown 20210921 unknown unknown unknown hemoglobin_blood unknown 20210921 unknown unknown unknow n hematocrit_blood unknown 20210921 unknown unknown unknow n potassium_blood unknown 20210921 unknown unknown unknown Glomerular_filtration_r unknown 20210921 unknown unknown unknown ate_1.73_sq_M.predicted _among_non-blacks_Volum e_Rate_Area_in_Serum_Pl asma_or_Blood_by_Creati nine-based_formula_MDRD _ Hematocrit_Volume_Frac unknown 20210921 unknown unknown unknown tion_of_Blood_by_Automa ted_count carbon_dioxide_serum_t unknown 20210921 unknown unknown unknown otal blood_glucose unknown 20210921 unknown unknown unknown potassium_blood unknown 20210921 unknown unknown unknown mean_corpuscular_volum unknown 20210921 unknown unknown unknown e_RBC Urea_nitrogen_Mass_vol unknown 20210921 unknown unknown unknown ume_in_Serum_or_Plasma Sodium_Moles_volume_in unknown 20210921 unknown unknown unknown _Serum_or_Plasma eosinophil_count_blood unknown [id number] unknown unknown unknown anion_gap_serum unknown [id number] unknown unknown unknown mean_platelet_volume unknown [id number] unknown unknown un known basophil_count_blood unknown [id number] unknown unknown un known monocyte_count_blood unknown [id number] unknown unknown un known lymphocyte_count_blood unknown [id number] unknown unknown unknown neutrophil_count_blood unknown [id number] unknown unknown unknown Glucose_Mass_volume_in unknown [id number] unknown unknown unknown _Serum_or_Plasma Creatinine_Mass_volume unknown 20210921 unknown unknown unknown _in_Serum_or_Plasma Chloride_Moles_volume_ unknown [id number] unknown unknown unknown in_Serum_or_Plasma carbon_dioxide_serum_t unknown 20210921 unknown unknown unknown otal Calcium_Moles_volume_i unknown 20210921 unknown unknown unknown n_Serum_or_Plasma Anion_gap_4_in_Serum_o unknown 20210921 unknown unknown unknown r_Plasma creatinine_serum unknown 20210921 unknown unknown unknow n mean_corpuscular_hemog unknown 20210921 unknown unknown unknown lobin_concentration_rbc sodium_serum unknown 20210921 unknown unknown unknown chloride_serum unknown 20210921 unknown unknown unknown calcium_serum unknown 20210921 unknown unknown unknown mean_corpuscular_hemog unknown 20210921 unknown unknown unknown lobin_RBC red_blood_cell_distrib unknown 20210921 unknown unknown unknown ution_width T unknown 20210921 unknown unknown unknown T unknown [id number] unknown unknown unknown T unknown [id number] unknown unknown unknown T unknown [id number] unknown unknown unknown NEUTROPHILS_AUTO_ unknown [id number] unknown unknown unkno wn T unknown [id number] unknown unknown unknown T unknown [id number] unknown unknown unknown T unknown [id number] unknown unknown unknown MONOCYTES_AUTO_ unknown [id number] unknown unknown unknown T unknown [id number] unknown unknown unknown T unknown [id number] unknown unknown unknown T unknown [id number] unknown unknown unknown T unknown [id number] unknown unknown unknown LYMPHOCYTES_AUTO_ unknown [id number] unknown unknown unkno wn T unknown [id number] unknown unknown unknown T unknown [id number] unknown unknown unknown T unknown [id number] unknown unknown unknown T unknown [id number] unknown unknown unknown T unknown [id number] unknown unknown unknown T unknown [id number] unknown unknown unknown GFR_-_MDRD unknown [id number] unknown unknown unknown T unknown [id number] unknown unknown unknown EOSINOPHILS_AUTO_ unknown [id number] unknown unknown unkno wn T unknown [id number] unknown unknown unknown T unknown [id number] unknown unknown unknown T unknown [id number] unknown unknown unknown T unknown [id number] unknown unknown unknown T unknown [id number] unknown unknown unknown T unknown [id number] unknown unknown unknown BASOPHILS_AUTO_ unknown [id number] unknown unknown unknown T unknown [id number] unknown unknown unknown urea_nitrogen_blood unknown 20210920 unknown unknown unk nown Erythrocytes_volume_in unknown 20210920 unknown unknown unknown _Blood_by_Automated_cou nt Erythrocyte_distributi unknown 20210920 unknown unknown unknown on_width_Ratio_by_Autom ated_count MCV_Entitic_volume_by_ unknown 20210920 unknown unknown unknown Automated_count MCH_Entitic_mass_by_Au unknown 20210920 unknown unknown unknown tomated_count Platelets_volume_in_Bl unknown 20210920 unknown unknown unknown ood_by_Automated_count Platelet_mean_volume_E unknown 20210920 unknown unknown unknown ntitic_volume_in_Blood_ by_Re[facility]air neutrophil_count_blood unknown 20210920 unknown unknown unknown monocyte_count_blood unknown 20210920 unknown unknown un known lymphocyte_count_blood unknown 20210920 unknown unknown unknown Hemoglobin_Mass_volume unknown 20210920 unknown unknown unknown _in_Blood eosinophil_count_blood unknown 20210920 unknown unknown unknown Basophils_volume_in_Bl unknown 20210920 unknown unknown unknown ood_by_Manual_count leukocyte_count_blood unknown 20210920 unknown unknown u nknown erythrocyte_RBC_count unknown 20210920 unknown unknown u nknown Leukocytes_volume_in_B unknown 20210920 unknown unknown unknown lood_by_Automated_count Glomerular_Filtration_ unknown 20210920 unknown unknown unknown rate platelet_count unknown 20210920 unknown unknown unknown hemoglobin_blood unknown 20210920 unknown unknown unknow n hematocrit_blood unknown 20210920 unknown unknown unknow n potassium_blood unknown 20210920 unknown unknown unknown Glomerular_filtration_r unknown 20210920 unknown unknown unknown ate_1.73_sq_M.predicted _among_non-blacks_Volum e_Rate_Area_in_Serum_Pl asma_or_Blood_by_Creati nine-based_formula_MDRD _ Hematocrit_Volume_Frac unknown 20210920 unknown unknown unknown tion_of_Blood_by_Automa ted_count carbon_dioxide_serum_t unknown 20210920 unknown unknown unknown otal blood_glucose unknown 20210920 unknown unknown unknown potassium_blood unknown 20210920 unknown unknown unknown mean_corpuscular_volum unknown 20210920 unknown unknown unknown e_RBC Urea_nitrogen_Mass_vol unknown 20210920 unknown unknown unknown ume_in_Serum_or_Plasma Sodium_Moles_volume_in unknown 20210920 unknown unknown unknown _Serum_or_Plasma eosinophil_count_blood unknown 20210920 unknown unknown unknown anion_gap_serum unknown 20210920 unknown unknown unknown mean_platelet_volume unknown 20210920 unknown unknown un known basophil_count_blood unknown [id number] unknown unknown un known monocyte_count_blood unknown [id number] unknown unknown un known lymphocyte_count_blood unknown [id number] unknown unknown unknown neutrophil_count_blood unknown [id number] unknown unknown unknown B-type_natriuretic_pep unknown 20210920 unknown unknown unknown tide_brain_natriuretic_ peptide_ Glucose_Mass_volume_in unknown [id number] unknown unknown unknown _Serum_or_Plasma Creatinine_Mass_volume unknown [id number] unknown unknown unknown _in_Serum_or_Plasma Chloride_Moles_volume_ unknown [id number] unknown unknown unknown in_Serum_or_Plasma carbon_dioxide_serum_t unknown 20210920 unknown unknown unknown otal Calcium_Moles_volume_i unknown 20210920 unknown unknown unknown n_Serum_or_Plasma Anion_gap_4_in_Serum_o unknown 20210920 unknown unknown unknown r_Plasma creatinine_serum unknown 20210920 unknown unknown unknow n mean_corpuscular_hemog unknown [id number] unknown unknown unknown lobin_concentration_rbc sodium_serum unknown [id number] unknown unknown unknown chloride_serum unknown [id number] unknown unknown unknown calcium_serum unknown [id number] unknown unknown unknown mean_corpuscular_hemog unknown [id number] unknown unknown unknown lobin_RBC red_blood_cell_distrib unknown [id number] unknown unknown unknown ution_width T unknown [id number] unknown unknown unknown T unknown [id number] unknown unknown unknown T unknown [id number] unknown unknown unknown T unknown 20210634 unknown unknown unknown NEUTROPHILS_AUTO_ unknown [id number] unknown unknown unkno wn T unknown [id number] unknown unknown unknown T unknown [id number] unknown unknown unknown T unknown [id number] unknown unknown unknown MONOCYTES_AUTO_ unknown [id number] unknown unknown unknown T unknown [id number] unknown unknown unknown T unknown [id number] unknown unknown unknown T unknown [id number] unknown unknown unknown MEAN_CORPUSCULAR_HGB_C unknown [id number] unknown unknown unknown ONC T unknown [id number] unknown unknown unknown LYMPHOCYTES_AUTO_ unknown [id number] unknown unknown unkno wn T unknown [id number] unknown unknown unknown T unknown [id number] unknown unknown unknown T unknown [id number] unknown unknown unknown T unknown [id number] unknown unknown unknown T unknown [id number] unknown unknown unknown T unknown [id number] unknown unknown unknown GFR_-_MDRD unknown [id number] unknown unknown unknown T unknown 20210920 unknown unknown unknown EOSINOPHILS_AUTO_ unknown 20210920 unknown unknown unkno wn T unknown 20210920 unknown unknown unknown T unknown 20210920 unknown unknown unknown T unknown 20210920 unknown unknown unknown T unknown 20210920 unknown unknown unknown T unknown 20210920 unknown unknown unknown T unknown 20210920 unknown unknown unknown T unknown 20210920 unknown unknown unknown BASOPHILS_AUTO_ unknown 20210920 unknown unknown unknown T unknown 20210920 unknown unknown unknown platelet_count_estimat unknown 20210919 unknown unknown unknown e urea_nitrogen_blood unknown 20210919 unknown unknown unk nown Erythrocytes_volume_in unknown 20210919 unknown unknown unknown _Blood_by_Automated_cou nt Erythrocyte_distributi unknown 20210919 unknown unknown unknown on_width_Ratio_by_Autom ated_count MCV_Entitic_volume_by_ unknown 20210919 unknown unknown unknown Automated_count MCH_Entitic_mass_by_Au unknown 20210919 unknown unknown unknown tomated_count Platelets_volume_in_Bl unknown 20210919 unknown unknown unknown ood_by_Automated_count Platelet_mean_volume_E unknown 20210919 unknown unknown unknown ntitic_volume_in_Blood_ by_[facility]-[place] Hemoglobin_Mass_volume unknown 20210919 unknown unknown unknown _in_Blood leukocyte_count_blood unknown 20210919 unknown unknown u nknown erythrocyte_RBC_count unknown 20210919 unknown unknown u nknown Leukocytes_volume_in_B unknown 20210919 unknown unknown unknown lood_by_Automated_count Glomerular_Filtration_ unknown 20210919 unknown unknown unknown rate platelet_count unknown 20210919 unknown unknown unknown hemoglobin_blood unknown 20210919 unknown unknown unknow n hematocrit_blood unknown 20210919 unknown unknown unknow n potassium_blood unknown 20210919 unknown unknown unknown Methicillin-resistant_ unknown 20210919 unknown unknown unknown Staphylococcus_aureus_m ecA_gene_by_PCR monocytes_absolute_man unknown 20210919 unknown unknown unknown ual lymphocytes_absolute_m unknown 20210919 unknown unknown unknown anual polymorphonuclear_neut unknown 20210919 unknown unknown unknown rophils_absolute_manual Glomerular_filtration_r unknown 20210919 unknown unknown unknown ate_1.73_sq_M.predicted _among_non-blacks_Volum e_Rate_Area_in_Serum_Pl asma_or_Blood_by_Creati nine-based_formula_MDRD _ Hematocrit_Volume_Frac unknown 20210919 unknown unknown unknown tion_of_Blood_by_Automa ted_count carbon_dioxide_serum_t unknown 20210919 unknown unknown unknown otal blood_glucose unknown 20210919 unknown unknown unknown potassium_blood unknown 20210919 unknown unknown unknown mean_corpuscular_volum unknown 20210919 unknown unknown unknown e_RBC platelet_count_estimat unknown 20210919 unknown unknown unknown e Urea_nitrogen_Mass_vol unknown 20210919 unknown unknown unknown ume_in_Serum_or_Plasma Sodium_Moles_volume_in unknown 20210919 unknown unknown unknown _Serum_or_Plasma anion_gap_serum unknown 20210919 unknown unknown unknown mean_platelet_volume unknown 20210919 unknown unknown un known Glucose_Mass_volume_in unknown 20210919 unknown unknown unknown _Serum_or_Plasma Creatinine_Mass_volume unknown 20210919 unknown unknown unknown _in_Serum_or_Plasma Chloride_Moles_volume_ unknown 20210919 unknown unknown unknown in_Serum_or_Plasma carbon_dioxide_serum_t unknown 20210919 unknown unknown unknown otal Calcium_Moles_volume_i unknown 20210919 unknown unknown unknown n_Serum_or_Plasma Anion_gap_4_in_Serum_o unknown 20210919 unknown unknown unknown r_Plasma creatinine_serum unknown 20210919 unknown unknown unknow n mean_corpuscular_hemog unknown 20210919 unknown unknown unknown lobin_concentration_rbc sodium_serum unknown 20210919 unknown unknown unknown chloride_serum unknown 20210919 unknown unknown unknown calcium_serum unknown 20210919 unknown unknown unknown total_cells_counted_bl unknown 20210919 unknown unknown unknown ood mean_corpuscular_hemog unknown 20210919 unknown unknown unknown lobin_RBC red_blood_cell_distrib unknown 20210919 unknown unknown unknown ution_width T unknown 20210919 unknown unknown unknown T unknown 20210919 unknown unknown unknown TOTAL_CELLS_COUNTED unknown 20210919 unknown unknown unk nown T unknown 20210919 unknown unknown unknown T unknown 20210919 unknown unknown unknown T unknown 20210919 unknown unknown unknown PLATELET_ESTIMATE_MANU unknown 20210919 unknown unknown unknown AL T unknown 20210919 unknown unknown unknown T unknown 20210919 unknown unknown unknown NEUTROPHILS_MANUAL_ unknown 20210919 unknown unknown unk nown T unknown 20210919 unknown unknown unknown T unknown 20210919 unknown unknown unknown T unknown 20210919 unknown unknown unknown T unknown 20210919 unknown unknown unknown MONOCYTES_MANUAL_ unknown 20210919 unknown unknown unkno wn T unknown 20210919 unknown unknown unknown T unknown 20210919 unknown unknown unknown T unknown 20210919 unknown unknown unknown T unknown 20210919 unknown unknown unknown LYMPHOCYTES_MANUAL_ unknown 20210919 unknown unknown unk nown T unknown 20210919 unknown unknown unknown T unknown 20210919 unknown unknown unknown T unknown 20210919 unknown unknown unknown T unknown 20210919 unknown unknown unknown T unknown 20210919 unknown unknown unknown GFR_-_MDRD unknown 20210919 unknown unknown unknown T unknown 20210919 unknown unknown unknown T unknown 20210919 unknown unknown unknown T unknown 20210919 unknown unknown unknown T unknown 20210919 unknown unknown unknown T unknown 20210919 unknown unknown unknown T unknown 20210919 unknown unknown unknown platelet_count_estimat unknown 20210918 unknown unknown unknown e urea_nitrogen_blood unknown 20210918 unknown unknown unk nown Erythrocytes_volume_in unknown 20210918 unknown unknown unknown _Blood_by_Automated_cou nt Erythrocyte_distributi unknown 20210918 unknown unknown unknown on_width_Ratio_by_Autom ated_count MCV_Entitic_volume_by_ unknown 20210918 unknown unknown unknown Automated_count MCH_Entitic_mass_by_Au unknown 20210918 unknown unknown unknown tomated_count Platelets_volume_in_Bl unknown 20210918 unknown unknown unknown ood_by_Automated_count Platelet_mean_volume_E unknown 20210918 unknown unknown unknown ntitic_volume_in_Blood_ by_[facility]-[place] Hemoglobin_Mass_volume unknown 20210918 unknown unknown unknown _in_Blood leukocyte_count_blood unknown 20210918 unknown unknown u nknown erythrocyte_RBC_count unknown 20210918 unknown unknown u nknown Leukocytes_volume_in_B unknown 20210918 unknown unknown unknown lood_by_Automated_count Glomerular_Filtration_ unknown 20210918 unknown unknown unknown rate platelet_count unknown 20210918 unknown unknown unknown hemoglobin_blood unknown 20210918 unknown unknown unknow n hematocrit_blood unknown 20210918 unknown unknown unknow n potassium_blood unknown 20210918 unknown unknown unknown monocytes_absolute_man unknown 20210918 unknown unknown unknown ual lymphocytes_absolute_m unknown 20210918 unknown unknown unknown anual polymorphonuclear_neut unknown 20210918 unknown unknown unknown rophils_absolute_manual Glomerular_filtration_r unknown 20210918 unknown unknown unknown ate_1.73_sq_M.predicted _among_non-blacks_Volum e_Rate_Area_in_Serum_Pl asma_or_Blood_by_Creati nine-based_formula_MDRD _ Hematocrit_Volume_Frac unknown 20210918 unknown unknown unknown tion_of_Blood_by_Automa ted_count carbon_dioxide_serum_t unknown 20210918 unknown unknown unknown otal blood_glucose unknown 20210918 unknown unknown unknown potassium_blood unknown 20210918 unknown unknown unknown mean_corpuscular_volum unknown 20210918 unknown unknown unknown e_RBC platelet_count_estimat unknown 20210918 unknown unknown unknown e Urea_nitrogen_Mass_vol unknown 20210918 unknown unknown unknown ume_in_Serum_or_Plasma Sodium_Moles_volume_in unknown 20210918 unknown unknown unknown _Serum_or_Plasma anion_gap_serum unknown 20210918 unknown unknown unknown mean_platelet_volume unknown 20210918 unknown unknown un known Glucose_Mass_volume_in unknown 20210918 unknown unknown unknown _Serum_or_Plasma Creatinine_Mass_volume unknown 20210918 unknown unknown unknown _in_Serum_or_Plasma Chloride_Moles_volume_ unknown 20210918 unknown unknown unknown in_Serum_or_Plasma carbon_dioxide_serum_t unknown 20210918 unknown unknown unknown otal Calcium_Moles_volume_i unknown 20210918 unknown unknown unknown n_Serum_or_Plasma Anion_gap_4_in_Serum_o unknown 20210918 unknown unknown unknown r_Plasma creatinine_serum unknown 20210918 unknown unknown unknow n mean_corpuscular_hemog unknown 20210918 unknown unknown unknown lobin_concentration_rbc sodium_serum unknown 20210918 unknown unknown unknown chloride_serum unknown 20210918 unknown unknown unknown calcium_serum unknown 20210918 unknown unknown unknown total_cells_counted_bl unknown 20210918 unknown unknown unknown ood mean_corpuscular_hemog unknown 20210918 unknown unknown unknown lobin_RBC red_blood_cell_distrib unknown 20210918 unknown unknown unknown ution_width T unknown 20210918 unknown unknown unknown T unknown 20210918 unknown unknown unknown TOTAL_CELLS_COUNTED unknown 20210918 unknown unknown unk nown T unknown 20210918 unknown unknown unknown T unknown 20210918 unknown unknown unknown T unknown 20210918 unknown unknown unknown PLATELET_ESTIMATE_MANU unknown 20210918 unknown unknown unknown AL T unknown 20210918 unknown unknown unknown T unknown 20210918 unknown unknown unknown NEUTROPHILS_MANUAL_ unknown 20210918 unknown unknown unk nown T unknown 20210918 unknown unknown unknown T unknown 20210918 unknown unknown unknown T unknown 20210918 unknown unknown unknown MONOCYTES_MANUAL_ unknown 20210918 unknown unknown unkno wn T unknown 20210918 unknown unknown unknown MEAN_CORPUSCULAR_VOLUM unknown 20210918 unknown unknown unknown E T unknown 20210918 unknown unknown unknown T unknown 20210918 unknown unknown unknown T unknown 20210918 unknown unknown unknown LYMPHOCYTES_MANUAL_ unknown 20210918 unknown unknown unk nown T unknown 20210918 unknown unknown unknown T unknown 20210918 unknown unknown unknown HGB_-_HEMOGLOBIN unknown 20210918 unknown unknown unknow n T unknown 20210918 unknown unknown unknown T unknown 20210918 unknown unknown unknown T unknown 20210918 unknown unknown unknown GFR_-_MDRD unknown 20210918 unknown unknown unknown T unknown 20210918 unknown unknown unknown T unknown [id number] unknown unknown unknown T unknown 20210918 unknown unknown unknown T unknown 20210918 unknown unknown unknown T unknown 20210918 unknown unknown unknown T unknown 20210918 unknown unknown unknown urea_nitrogen_blood unknown 20210917 unknown unknown unk nown Erythrocytes_volume_in unknown 20210917 unknown unknown unknown _Blood_by_Automated_cou nt Erythrocyte_distributi unknown 20210917 unknown unknown unknown on_width_Ratio_by_Autom ated_count MCV_Entitic_volume_by_ unknown 20210917 unknown unknown unknown Automated_count MCH_Entitic_mass_by_Au unknown 20210917 unknown unknown unknown tomated_count Platelets_volume_in_Bl unknown 20210917 unknown unknown unknown ood_by_Automated_count Platelet_mean_volume_E unknown 20210917 unknown unknown unknown ntitic_volume_in_Blood_ by_Rees-Zuhair neutrophil_count_blood unknown 20210917 unknown unknown unknown monocyte_count_blood unknown 20210917 unknown unknown un known lymphocyte_count_blood unknown 20210917 unknown unknown unknown Hemoglobin_Mass_volume unknown 20210917 unknown unknown unknown _in_Blood eosinophil_count_blood unknown 20210917 unknown unknown unknown Basophils_volume_in_Bl unknown 20210917 unknown unknown unknown ood_by_Manual_count leukocyte_count_blood unknown 20210917 unknown unknown u nknown erythrocyte_RBC_count unknown 20210917 unknown unknown u nknown Leukocytes_volume_in_B unknown 20210917 unknown unknown unknown lood_by_Automated_count Glomerular_Filtration_ unknown 20210917 unknown unknown unknown rate platelet_count unknown 20210917 unknown unknown unknown hemoglobin_blood unknown 20210917 unknown unknown unknow n hematocrit_blood unknown 20210917 unknown unknown unknow n potassium_blood unknown 20210917 unknown unknown unknown Glomerular_filtration_r unknown 20210917 unknown unknown unknown ate_1.73_sq_M.predicted _among_non-blacks_Volum e_Rate_Area_in_Serum_Pl asma_or_Blood_by_Creati nine-based_formula_MDRD _ Hematocrit_Volume_Frac unknown 20210917 unknown unknown unknown tion_of_Blood_by_Automa ted_count carbon_dioxide_serum_t unknown 20210917 unknown unknown unknown otal blood_glucose unknown 20210917 unknown unknown unknown potassium_blood unknown 20210917 unknown unknown unknown mean_corpuscular_volum unknown 20210917 unknown unknown unknown e_RBC Urea_nitrogen_Mass_vol unknown 20210917 unknown unknown unknown ume_in_Serum_or_Plasma Sodium_Moles_volume_in unknown 20210917 unknown unknown unknown _Serum_or_Plasma eosinophil_count_blood unknown 20210917 unknown unknown unknown anion_gap_serum unknown 20210917 unknown unknown unknown mean_platelet_volume unknown 20210917 unknown unknown un known basophil_count_blood unknown 20210917 unknown unknown un known monocyte_count_blood unknown 20210917 unknown unknown un known lymphocyte_count_blood unknown 20210917 unknown unknown unknown neutrophil_count_blood unknown 20210917 unknown unknown unknown Glucose_Mass_volume_in unknown 20210917 unknown unknown unknown _Serum_or_Plasma Creatinine_Mass_volume unknown 20210917 unknown unknown unknown _in_Serum_or_Plasma Chloride_Moles_volume_ unknown [id number] unknown unknown unknown in_Serum_or_Plasma carbon_dioxide_serum_t unknown 20210917 unknown unknown unknown otal Calcium_Moles_volume_i unknown 20210917 unknown unknown unknown n_Serum_or_Plasma Anion_gap_4_in_Serum_o unknown 20210917 unknown unknown unknown r_Plasma creatinine_serum unknown 20210917 unknown unknown unknow n mean_corpuscular_hemog unknown 20210917 unknown unknown unknown lobin_concentration_rbc sodium_serum unknown 20210917 unknown unknown unknown chloride_serum unknown 20210917 unknown unknown unknown calcium_serum unknown 20210917 unknown unknown unknown mean_corpuscular_hemog unknown 20210917 unknown unknown unknown lobin_RBC red_blood_cell_distrib unknown 20210917 unknown unknown unknown ution_width T unknown 20210917 unknown unknown unknown T unknown 20210917 unknown unknown unknown T unknown 20210917 unknown unknown unknown T unknown 20210917 unknown unknown unknown NEUTROPHILS_AUTO_ unknown 20210917 unknown unknown unkno wn T unknown 20210917 unknown unknown unknown T unknown 20210917 unknown unknown unknown T unknown 20210917 unknown unknown unknown MONOCYTES_AUTO_ unknown 20210917 unknown unknown unknown T unknown 20210917 unknown unknown unknown T unknown [id number] unknown unknown unknown T unknown [id number] unknown unknown unknown T unknown [id number] unknown unknown unknown LYMPHOCYTES_AUTO_ unknown 20210917 unknown unknown unkno wn T unknown 20210917 unknown unknown unknown T unknown [id number] unknown unknown unknown T unknown 20210917 unknown unknown unknown T unknown 20210917 unknown unknown unknown T unknown 20210917 unknown unknown unknown T unknown 20210917 unknown unknown unknown GFR_-_MDRD unknown 20210917 unknown unknown unknown T unknown 20210917 unknown unknown unknown EOSINOPHILS_AUTO_ unknown 20210917 unknown unknown unkno wn T unknown 20210917 unknown unknown unknown T unknown 20210917 unknown unknown unknown T unknown [id number] unknown unknown unknown T unknown [id number] unknown unknown unknown T unknown [id number] unknown unknown unknown T unknown [id number] unknown unknown unknown BASOPHILS_AUTO_ unknown 20210917 unknown unknown unknown T unknown [id number] unknown unknown unknown urea_nitrogen_blood unknown 20210916 unknown unknown unk nown Erythrocytes_volume_in unknown 20210916 unknown unknown unknown _Blood_by_Automated_cou nt Erythrocyte_distributi unknown 20210916 unknown unknown unknown on_width_Ratio_by_Autom ated_count MCV_Entitic_volume_by_ unknown 20210916 unknown unknown unknown Automated_count MCH_Entitic_mass_by_Au unknown 20210916 unknown unknown unknown tomated_count Platelets_volume_in_Bl unknown 20210916 unknown unknown unknown ood_by_Automated_count Platelet_mean_volume_E unknown 20210916 unknown unknown unknown ntitic_volume_in_Blood_ by_Rees-Zuhair neutrophil_count_blood unknown 20210916 unknown unknown unknown monocyte_count_blood unknown 20210916 unknown unknown un known lymphocyte_count_blood unknown 20210916 unknown unknown unknown Hemoglobin_Mass_volume unknown 20210916 unknown unknown unknown _in_Blood eosinophil_count_blood unknown 20210916 unknown unknown unknown Basophils_volume_in_Bl unknown 20210916 unknown unknown unknown ood_by_Manual_count leukocyte_count_blood unknown 20210916 unknown unknown u nknown erythrocyte_RBC_count unknown 20210916 unknown unknown u nknown Leukocytes_volume_in_B unknown 20210916 unknown unknown unknown lood_by_Automated_count Glomerular_Filtration_ unknown 20210916 unknown unknown unknown rate platelet_count unknown 20210916 unknown unknown unknown hemoglobin_blood unknown 20210916 unknown unknown unknow n hematocrit_blood unknown 20210916 unknown unknown unknow n potassium_blood unknown 20210916 unknown unknown unknown Glomerular_filtration_r unknown 20210916 unknown unknown unknown ate_1.73_sq_M.predicted _among_non-blacks_Volum e_Rate_Area_in_Serum_Pl asma_or_Blood_by_Creati nine-based_formula_MDRD _ Hematocrit_Volume_Frac unknown 20210916 unknown unknown unknown tion_of_Blood_by_Automa ted_count carbon_dioxide_serum_t unknown 20210916 unknown unknown unknown otal blood_glucose unknown 20210916 unknown unknown unknown potassium_blood unknown 20210916 unknown unknown unknown mean_corpuscular_volum unknown 20210916 unknown unknown unknown e_RBC Urea_nitrogen_Mass_vol unknown 20210916 unknown unknown unknown ume_in_Serum_or_Plasma Sodium_Moles_volume_in unknown 20210916 unknown unknown unknown _Serum_or_Plasma eosinophil_count_blood unknown 20210916 unknown unknown unknown anion_gap_serum unknown [id number] unknown unknown unknown mean_platelet_volume unknown [id number] unknown unknown un known basophil_count_blood unknown [id number] unknown unknown un known monocyte_count_blood unknown [id number] unknown unknown un known lymphocyte_count_blood unknown [id number] unknown unknown unknown neutrophil_count_blood unknown [id number] unknown unknown unknown Glucose_Mass_volume_in unknown [id number] unknown unknown unknown _Serum_or_Plasma Creatinine_Mass_volume unknown 22797307 unknown unknown unknown _in_Serum_or_Plasma Chloride_Moles_volume_ unknown [id number] unknown unknown unknown in_Serum_or_Plasma carbon_dioxide_serum_t unknown [id number] unknown unknown unknown otal Calcium_Moles_volume_i unknown [id number] unknown unknown unknown n_Serum_or_Plasma Anion_gap_4_in_Serum_o unknown 13782935 unknown unknown unknown r_Plasma creatinine_serum unknown [id number] unknown unknown unknow n mean_corpuscular_hemog unknown [id number] unknown unknown unknown lobin_concentration_rbc sodium_serum unknown [id number] unknown unknown unknown chloride_serum unknown [id number] unknown unknown unknown calcium_serum unknown [id number] unknown unknown unknown mean_corpuscular_hemog unknown [id number] unknown unknown unknown lobin_RBC red_blood_cell_distrib unknown [id number] unknown unknown unknown ution_width T unknown [id number] unknown unknown unknown T unknown [id number] unknown unknown unknown T unknown [id number] unknown unknown unknown T unknown [id number] unknown unknown unknown NEUTROPHILS_AUTO_ unknown [id number] unknown unknown unkno wn T unknown [id number] unknown unknown unknown T unknown [id number] unknown unknown unknown T unknown [id number] unknown unknown unknown MONOCYTES_AUTO_ unknown [id number] unknown unknown unknown T unknown [id number] unknown unknown unknown T unknown [id number] unknown unknown unknown T unknown [id number] unknown unknown unknown T unknown [id number] unknown unknown unknown LYMPHOCYTES_AUTO_ unknown [id number] unknown unknown unkno wn T unknown [id number] unknown unknown unknown T unknown [id number] unknown unknown unknown T unknown [id number] unknown unknown unknown T unknown [id number] unknown unknown unknown T unknown [id number] unknown unknown unknown T unknown [id number] unknown unknown unknown GFR_-_MDRD unknown [id number] unknown unknown unknown T unknown [id number] unknown unknown unknown EOSINOPHILS_AUTO_ unknown [id number] unknown unknown unkno wn T unknown [id number] unknown unknown unknown T unknown 20210916 unknown unknown unknown T unknown 20210916 unknown unknown unknown T unknown 20210916 unknown unknown unknown T unknown 20210916 unknown unknown unknown T unknown 20210916 unknown unknown unknown BASOPHILS_AUTO_ unknown 20210916 unknown unknown unknown T unknown 20210916 unknown unknown unknown platelet_count_estimat unknown 20210915 unknown unknown unknown e urea_nitrogen_blood unknown 20210915 unknown unknown unk nown urea_nitrogen_blood unknown 20210915 unknown unknown unk nown Erythrocytes_volume_in unknown 20210915 unknown unknown unknown _Blood_by_Automated_cou nt Erythrocyte_distributi unknown 20210915 unknown unknown unknown on_width_Ratio_by_Autom ated_count MCV_Entitic_volume_by_ unknown 20210915 unknown unknown unknown Automated_count MCH_Entitic_mass_by_Au unknown 20210915 unknown unknown unknown tomated_count Platelets_volume_in_Bl unknown 20210915 unknown unknown unknown ood_by_Automated_count Platelet_mean_volume_E unknown 20210915 unknown unknown unknown ntitic_volume_in_Blood_ by_Rees-Zuhair neutrophil_count_blood unknown 20210915 unknown unknown unknown monocyte_count_blood unknown 20210915 unknown unknown un known lymphocyte_count_blood unknown 20210915 unknown unknown unknown Hemoglobin_Mass_volume unknown 20210915 unknown unknown unknown _in_Blood eosinophil_count_blood unknown 20210915 unknown unknown unknown Basophils_volume_in_Bl unknown 20210915 unknown unknown unknown ood_by_Manual_count leukocyte_count_blood unknown 20210915 unknown unknown u nknown erythrocyte_RBC_count unknown 20210915 unknown unknown u nknown Leukocytes_volume_in_B unknown 20210915 unknown unknown unknown lood_by_Automated_count Glomerular_Filtration_ unknown [id number] unknown unknown unknown rate Glomerular_Filtration_ unknown [id number] unknown unknown unknown rate platelet_count unknown [id number] unknown unknown unknown hemoglobin_blood unknown 20210915 unknown unknown unknow n hematocrit_blood unknown [id number] unknown unknown unknow n potassium_blood unknown 20210915 unknown unknown unknown potassium_blood unknown [id number] unknown unknown unknown Glomerular_filtration_r unknown [id number] unknown unknown unknown ate_1.73_sq_M.predicted _among_non-blacks_Volum e_Rate_Area_in_Serum_Pl asma_or_Blood_by_Creati nine-based_formula_MDRD _ Glomerular_filtration_r unknown 20210915 unknown unknown unknown ate_1.73_sq_M.predicted _among_non-blacks_Volum e_Rate_Area_in_Serum_Pl asma_or_Blood_by_Creati nine-based_formula_MDRD _ Hemoglobin_A1c_Hemoglo unknown 20210915 unknown unknown unknown bin_total_in_Blood_-_ Hematocrit_Volume_Frac unknown 20210915 unknown unknown unknown tion_of_Blood_by_Automa ted_count carbon_dioxide_serum_t unknown 20210915 unknown unknown unknown otal blood_glucose unknown 20210915 unknown unknown unknown blood_glucose unknown 20210915 unknown unknown unknown potassium_blood unknown 20210915 unknown unknown unknown potassium_blood unknown 20210915 unknown unknown unknown magnesium_serum unknown 20210915 unknown unknown unknown mean_corpuscular_volum unknown 20210915 unknown unknown unknown e_RBC platelet_count_estimat unknown 20210915 unknown unknown unknown e Urea_nitrogen_Mass_vol unknown 20210915 unknown unknown unknown ume_in_Serum_or_Plasma Urea_nitrogen_Mass_vol unknown 20210915 unknown unknown unknown ume_in_Serum_or_Plasma Thyrotropin_Units_volu unknown 20210915 unknown unknown unknown me_in_Serum_or_Plasma Sodium_Moles_volume_in unknown 20210915 unknown unknown unknown _Serum_or_Plasma Sodium_Moles_volume_in unknown 20210915 unknown unknown unknown _Serum_or_Plasma thyroid_stimulating_ho unknown 20210915 unknown unknown unknown rmone_serum eosinophil_count_blood unknown 20210915 unknown unknown unknown hemoglobin_A1C_blood_a unknown 20210915 unknown unknown unknown s_of_total_hemoglobin anion_gap_serum unknown [id number] unknown unknown unknown anion_gap_serum unknown [id number] unknown unknown unknown mean_platelet_volume unknown [id number] unknown unknown un known Glucose_mean_value_Mas unknown 61302759 unknown unknown unknown s_volume_in_Blood_Estim ated_from_glycated_hemo globin Magnesium_Moles_volume unknown 20210915 unknown unknown unknown _in_Serum_or_Plasma basophil_count_blood unknown 20210915 unknown unknown un known monocyte_count_blood unknown [id number] unknown unknown un known lymphocyte_count_blood unknown [id number] unknown unknown unknown neutrophil_count_blood unknown 92026069 unknown unknown unknown Glucose_Mass_volume_in unknown [id number] unknown unknown unknown _Serum_or_Plasma Glucose_Mass_volume_in unknown [id number] unknown unknown unknown _Serum_or_Plasma Creatinine_Mass_volume unknown 09771174 unknown unknown unknown _in_Serum_or_Plasma Creatinine_Mass_volume unknown [id number] unknown unknown unknown _in_Serum_or_Plasma Chloride_Moles_volume_ unknown [id number] unknown unknown unknown in_Serum_or_Plasma carbon_dioxide_serum_t unknown 20210915 unknown unknown unknown otal Calcium_Moles_volume_i unknown [id number] unknown unknown unknown n_Serum_or_Plasma Anion_gap_4_in_Serum_o unknown [id number] unknown unknown unknown r_Plasma Anion_gap_4_in_Serum_o unknown [id number] unknown unknown unknown r_Plasma Estimated_Average_Gluc unknown 20210915 unknown unknown unknown ose creatinine_serum unknown [id number] unknown unknown unknow n creatinine_serum unknown [id number] unknown unknown unknow n mean_corpuscular_hemog unknown [id number] unknown unknown unknown lobin_concentration_rbc sodium_serum unknown [id number] unknown unknown unknown sodium_serum unknown 22283226 unknown unknown unknown chloride_serum unknown [id number] unknown unknown unknown calcium_serum unknown [id number] unknown unknown unknown mean_corpuscular_hemog unknown [id number] unknown unknown unknown lobin_RBC red_blood_cell_distrib unknown [id number] unknown unknown unknown ution_width Slide_Interpretation unknown [id number] unknown unknown un known T unknown [id number] unknown unknown unknown T unknown [id number] unknown unknown unknown T unknown [id number] unknown unknown unknown SLIDE_REVIEW_ unknown [id number] unknown unknown unknown T unknown [id number] unknown unknown unknown T unknown [id number] unknown unknown unknown T unknown [id number] unknown unknown unknown PLATELET_ESTIMATE_MANU unknown [id number] unknown unknown unknown AL T unknown [id number] unknown unknown unknown NEUTROPHILS_AUTO_ unknown [id number] unknown unknown unkno wn T unknown [id number] unknown unknown unknown T unknown [id number] unknown unknown unknown T unknown [id number] unknown unknown unknown T unknown 20210915 unknown unknown unknown MONOCYTES_AUTO_ unknown [id number] unknown unknown unknown T unknown 20210915 unknown unknown unknown T unknown [id number] unknown unknown unknown T unknown [id number] unknown unknown unknown T unknown [id number] unknown unknown unknown T unknown 20210915 unknown unknown unknown LYMPHOCYTES_AUTO_ unknown [id number] unknown unknown unkno wn T unknown [id number] unknown unknown unknown T unknown [id number] unknown unknown unknown T unknown [id number] unknown unknown unknown T unknown 26013099 unknown unknown unknown T unknown [id number] unknown unknown unknown T unknown [id number] unknown unknown unknown T unknown [id number] unknown unknown unknown T unknown [id number] unknown unknown unknown T unknown 20210915 unknown unknown unknown GFR_-_MDRD unknown [id number] unknown unknown unknown GFR_-_MDRD unknown [id number] unknown unknown unknown T unknown [id number] unknown unknown unknown T unknown [id number] unknown unknown unknown T unknown [id number] unknown unknown unknown EOSINOPHILS_AUTO_ unknown 20210915 unknown unknown unkno wn T unknown 20210915 unknown unknown unknown ESTIMATED_AVERAGE_GLUC unknown 20210915 unknown unknown unknown OSE T unknown 20210915 unknown unknown unknown T unknown 20210915 unknown unknown unknown T unknown [id number] unknown unknown unknown T unknown [id number] unknown unknown unknown T unknown 20210915 unknown unknown unknown T unknown 20210915 unknown unknown unknown T unknown 20210915 unknown unknown unknown BASOPHILS_AUTO_ unknown 20210915 unknown unknown unknown T unknown 20210915 unknown unknown unknown T unknown 20210915 unknown unknown unknown HEMOGLOBIN_A1c_ unknown [id number] unknown unknown unknown T unknown 20210914 unknown unknown unknown urea_nitrogen_blood unknown [id number] unknown unknown unk nown Erythrocytes_volume_in unknown 20210914 unknown unknown unknown _Blood_by_Automated_cou nt Erythrocyte_distributi unknown 20210914 unknown unknown unknown on_width_Ratio_by_Autom ated_count MCV_Entitic_volume_by_ unknown [id number] unknown unknown unknown Automated_count MCH_Entitic_mass_by_Au unknown [id number] unknown unknown unknown tomated_count Platelets_volume_in_Bl unknown 20210914 unknown unknown unknown ood_by_Automated_count Platelet_mean_volume_E unknown [id number] unknown unknown unknown ntitic_volume_in_Blood_ by_Rees-Zuhair neutrophil_count_blood unknown 20210914 unknown unknown unknown monocyte_count_blood unknown 20210914 unknown unknown un known lymphocyte_count_blood unknown 20210914 unknown unknown unknown Hemoglobin_Mass_volume unknown 20210914 unknown unknown unknown _in_Blood eosinophil_count_blood unknown 20210914 unknown unknown unknown Basophils_volume_in_Bl unknown 20210914 unknown unknown unknown ood_by_Manual_count leukocyte_count_blood unknown 20210914 unknown unknown u nknown erythrocyte_RBC_count unknown 20210914 unknown unknown u nknown Leukocytes_volume_in_B unknown 20210914 unknown unknown unknown lood_by_Automated_count Glomerular_Filtration_ unknown [id number] unknown unknown unknown rate platelet_count unknown [id number] unknown unknown unknown hemoglobin_blood unknown 20210914 unknown unknown unknow n hematocrit_blood unknown 20210914 unknown unknown unknow n potassium_blood unknown 20210914 unknown unknown unknown Glomerular_filtration_r unknown 20210914 unknown unknown unknown ate_1.73_sq_M.predicted _among_non-blacks_Volum e_Rate_Area_in_Serum_Pl asma_or_Blood_by_Creati nine-based_formula_MDRD _ Hematocrit_Volume_Frac unknown 20210914 unknown unknown unknown tion_of_Blood_by_Automa ted_count bilirubin_serum_total unknown 20210914 unknown unknown u nknown alanine_aminotransfera unknown 20210914 unknown unknown unknown se_SGPT_serum carbon_dioxide_serum_t unknown 20210914 unknown unknown unknown otal aspartate_aminotransfe unknown 20210914 unknown unknown unknown rase_SGOT_serum protein_total_serum unknown [id number] unknown unknown unk nown blood_glucose unknown [id number] unknown unknown unknown potassium_blood unknown [id number] unknown unknown unknown magnesium_serum unknown [id number] unknown unknown unknown mean_corpuscular_volum unknown [id number] unknown unknown unknown e_RBC transferrin_serum unknown [id number] unknown unknown unkno wn Urea_nitrogen_Mass_vol unknown 20210914 unknown unknown unknown ume_in_Serum_or_Plasma globulin_serum unknown 94010510 unknown unknown unknown transferrin_serum unknown [id number] unknown unknown unkno wn alkaline_phosphatase_s unknown [id number] unknown unknown unknown joanne Sodium_Moles_volume_in unknown [id number] unknown unknown unknown _Serum_or_Plasma Protein_Mass_volume_in unknown [id number] unknown unknown unknown _Serum_or_Plasma eosinophil_count_blood unknown [id number] unknown unknown unknown anion_gap_serum unknown [id number] unknown unknown unknown mean_platelet_volume unknown [id number] unknown unknown un known Magnesium_Moles_volume unknown 20210914 unknown unknown unknown _in_Serum_or_Plasma Iron_saturation_Mass_F unknown 20210914 unknown unknown unknown raction_in_Serum_or_Pla sma Iron_binding_capacity_ unknown 20210914 unknown unknown unknown Mass_volume_in_Serum_or _Plasma Iron_Mass_volume_in_Se unknown [id number] unknown unknown unknown rum_or_Plasma iron_saturation_percen unknown 20210914 unknown unknown unknown t_serum basophil_count_blood unknown [id number] unknown unknown un known monocyte_count_blood unknown [id number] unknown unknown un known lymphocyte_count_blood unknown 20210914 unknown unknown unknown neutrophil_count_blood unknown 20210914 unknown unknown unknown B-type_natriuretic_pep unknown 20210914 unknown unknown unknown tide_brain_natriuretic_ peptide_ Glucose_Mass_volume_in unknown 20210914 unknown unknown unknown _Serum_or_Plasma Globulin_Mass_volume_i unknown 20210914 unknown unknown unknown n_Serum Creatinine_Mass_volume unknown 20210914 unknown unknown unknown _in_Serum_or_Plasma Chloride_Moles_volume_ unknown 20210914 unknown unknown unknown in_Serum_or_Plasma carbon_dioxide_serum_t unknown 20210914 unknown unknown unknown otal Calcium_Moles_volume_i unknown 20210914 unknown unknown unknown n_Serum_or_Plasma albumin_serum unknown 02151056 unknown unknown unknown Bilirubin.total_Mass_v unknown 20210914 unknown unknown unknown olume_in_Serum_or_Plasm a Aspartate_aminotransfe unknown 20210914 unknown unknown unknown rase_Enzymatic_activity _volume_in_Serum_or_Pla sma Anion_gap_4_in_Serum_o unknown [id number] unknown unknown unknown r_Plasma creatinine_serum unknown [id number] unknown unknown unknow n Alkaline_phosphatase_E unknown 20210914 unknown unknown unknown nzymatic_activity_volum e_in_Blood Albumin_Globulin_Mass_ unknown 20210914 unknown unknown unknown Ratio_in_Serum_or_Plasm a Albumin_Mass_volume_in unknown 20210914 unknown unknown unknown _Serum_or_Plasma Alanine_aminotransfera unknown [id number] unknown unknown unknown se_Enzymatic_activity_v olume_in_Serum_or_Plasm a mean_corpuscular_hemog unknown [id number] unknown unknown unknown lobin_concentration_rbc sodium_serum unknown [id number] unknown unknown unknown iron_serum unknown [id number] unknown unknown unknown albumin_globulin_ratio unknown [id number] unknown unknown unknown _serum chloride_serum unknown [id number] unknown unknown unknown calcium_serum unknown [id number] unknown unknown unknown iron_binding_capacity_ unknown [id number] unknown unknown unknown total mean_corpuscular_hemog unknown [id number] unknown unknown unknown lobin_RBC red_blood_cell_distrib unknown [id number] unknown unknown unknown ution_width T unknown [id number] unknown unknown unknown T unknown [id number] unknown unknown unknown TRANSFERRIN unknown [id number] unknown unknown unknown T unknown [id number] unknown unknown unknown T unknown [id number] unknown unknown unknown T unknown [id number] unknown unknown unknown T unknown [id number] unknown unknown unknown TOTAL_PROTEIN unknown [id number] unknown unknown unknown T unknown [id number] unknown unknown unknown T unknown [id number] unknown unknown unknown NEUTROPHILS_AUTO_ unknown [id number] unknown unknown unkno wn T unknown [id number] unknown unknown unknown T unknown [id number] unknown unknown unknown T unknown [id number] unknown unknown unknown MONOCYTES_AUTO_ unknown [id number] unknown unknown unknown T unknown [id number] unknown unknown unknown T unknown [id number] unknown unknown unknown T unknown [id number] unknown unknown unknown T unknown [id number] unknown unknown unknown T unknown [id number] unknown unknown unknown LYMPHOCYTES_AUTO_ unknown [id number] unknown unknown unkno wn T unknown [id number] unknown unknown unknown T unknown [id number] unknown unknown unknown T unknown [id number] unknown unknown unknown T unknown [id number] unknown unknown unknown T unknown [id number] unknown unknown unknown T unknown [id number] unknown unknown unknown T unknown [id number] unknown unknown unknown GFR_-_MDRD unknown [id number] unknown unknown unknown T unknown [id number] unknown unknown unknown _IRON_SATURATION unknown [id number] unknown unknown unknow n T unknown [id number] unknown unknown unknown EOSINOPHILS_AUTO_ unknown [id number] unknown unknown unkno wn T unknown [id number] unknown unknown unknown T unknown [id number] unknown unknown unknown T unknown [id number] unknown unknown unknown T unknown [id number] unknown unknown unknown T unknown [id number] unknown unknown unknown T unknown [id number] unknown unknown unknown T unknown [id number] unknown unknown unknown BILIRUBIN_TOTAL unknown [id number] unknown unknown unknown BASOPHILS_AUTO_ unknown [id number] unknown unknown unknown T unknown [id number] unknown unknown unknown T unknown [id number] unknown unknown unknown T unknown [id number] unknown unknown unknown T unknown [id number] unknown unknown unknown ALT_ALANINE_AMINOTRANS unknown [id number] unknown unknown unknown FERASE ALKALINE_PHOSPHATASE unknown [id number] unknown unknown un known T unknown [id number] unknown unknown unknown T unknown [id number] unknown unknown unknown ALBUMIN_GLOBULIN_RATIO unknown [id number] unknown unknown unknown urea_nitrogen_blood unknown 20210912 unknown unknown unk nown Erythrocytes_volume_in unknown 20210912 unknown unknown unknown _Blood_by_Automated_cou nt Erythrocyte_distributi unknown 20210912 unknown unknown unknown on_width_Ratio_by_Autom ated_count MCV_Entitic_volume_by_ unknown 20210912 unknown unknown unknown Automated_count MCH_Entitic_mass_by_Au unknown 20210912 unknown unknown unknown tomated_count Platelets_volume_in_Bl unknown 20210912 unknown unknown unknown ood_by_Automated_count Platelet_mean_volume_E unknown 20210912 unknown unknown unknown ntitic_volume_in_Blood_ by_[facility] neutrophil_count_blood unknown 20210912 unknown unknown unknown monocyte_count_blood unknown 20210912 unknown unknown un known lymphocyte_count_blood unknown 20210912 unknown unknown unknown Hemoglobin_Mass_volume unknown 20210912 unknown unknown unknown _in_Blood eosinophil_count_blood unknown 20210912 unknown unknown unknown Basophils_volume_in_Bl unknown 20210912 unknown unknown unknown ood_by_Manual_count leukocyte_count_blood unknown 20210912 unknown unknown u nknown erythrocyte_RBC_count unknown 20210912 unknown unknown u nknown Leukocytes_volume_in_B unknown 20210912 unknown unknown unknown lood_by_Automated_count Glomerular_Filtration_ unknown 20210912 unknown unknown unknown rate platelet_count unknown 20210912 unknown unknown unknown hemoglobin_blood unknown 20210912 unknown unknown unknow n hematocrit_blood unknown 20210912 unknown unknown unknow n potassium_blood unknown 20210912 unknown unknown unknown Glomerular_filtration_r unknown 20210912 unknown unknown unknown ate_1.73_sq_M.predicted _among_non-blacks_Volum e_Rate_Area_in_Serum_Pl asma_or_Blood_by_Creati nine-based_formula_MDRD _ Hematocrit_Volume_Frac unknown 20210912 unknown unknown unknown tion_of_Blood_by_Automa ted_count bilirubin_serum_total unknown 20210912 unknown unknown u nknown alanine_aminotransfera unknown 20210912 unknown unknown unknown se_SGPT_serum carbon_dioxide_serum_t unknown 20210912 unknown unknown unknown otal aspartate_aminotransfe unknown 20210912 unknown unknown unknown rase_SGOT_serum protein_total_serum unknown 20210912 unknown unknown unk nown blood_glucose unknown 20210912 unknown unknown unknown potassium_blood unknown 20210912 unknown unknown unknown mean_corpuscular_volum unknown 20210912 unknown unknown unknown e_RBC Urea_nitrogen_Mass_vol unknown 20210912 unknown unknown unknown ume_in_Serum_or_Plasma globulin_serum unknown 20210912 unknown unknown unknown alkaline_phosphatase_s unknown 20210912 unknown unknown unknown joanne Sodium_Moles_volume_in unknown 20210912 unknown unknown unknown _Serum_or_Plasma Protein_Mass_volume_in unknown 20210912 unknown unknown unknown _Serum_or_Plasma eosinophil_count_blood unknown 20210912 unknown unknown unknown anion_gap_serum unknown 20210912 unknown unknown unknown mean_platelet_volume unknown 20210912 unknown unknown un known C-reactive_protein_ser unknown 20210912 unknown unknown unknown um basophil_count_blood unknown 20210912 unknown unknown un known monocyte_count_blood unknown 20210912 unknown unknown un known lymphocyte_count_blood unknown 20210912 unknown unknown unknown neutrophil_count_blood unknown 20210912 unknown unknown unknown B-type_natriuretic_pep unknown 20210912 unknown unknown unknown tide_brain_natriuretic_ peptide_ Glucose_Mass_volume_in unknown 20210912 unknown unknown unknown _Serum_or_Plasma Globulin_Mass_volume_i unknown 20210912 unknown unknown unknown n_Serum Creatinine_Mass_volume unknown 20210912 unknown unknown unknown _in_Serum_or_Plasma Chloride_Moles_volume_ unknown 20210912 unknown unknown unknown in_Serum_or_Plasma carbon_dioxide_serum_t unknown 20210912 unknown unknown unknown otal Calcium_Moles_volume_i unknown 20210912 unknown unknown unknown n_Serum_or_Plasma albumin_serum unknown 20210912 unknown unknown unknown C_reactive_protein_Mas unknown 20210912 unknown unknown unknown s_volume_in_Serum_or_Pl asma Bilirubin.total_Mass_v unknown 20210912 unknown unknown unknown olume_in_Serum_or_Plasm a Aspartate_aminotransfe unknown 20210912 unknown unknown unknown rase_Enzymatic_activity _volume_in_Serum_or_Pla sma Anion_gap_4_in_Serum_o unknown 20210912 unknown unknown unknown r_Plasma creatinine_serum unknown 20210912 unknown unknown unknow n Alkaline_phosphatase_E unknown 20210912 unknown unknown unknown nzymatic_activity_volum e_in_Blood Albumin_Globulin_Mass_ unknown 20210912 unknown unknown unknown Ratio_in_Serum_or_Plasm a Albumin_Mass_volume_in unknown 20210912 unknown unknown unknown _Serum_or_Plasma Alanine_aminotransfera unknown 20210912 unknown unknown unknown se_Enzymatic_activity_v olume_in_Serum_or_Plasm a mean_corpuscular_hemog unknown 20210912 unknown unknown unknown lobin_concentration_rbc sodium_serum unknown 20210912 unknown unknown unknown albumin_globulin_ratio unknown 20210912 unknown unknown unknown _serum chloride_serum unknown 20210912 unknown unknown unknown calcium_serum unknown 20210912 unknown unknown unknown mean_corpuscular_hemog unknown 20210912 unknown unknown unknown lobin_RBC red_blood_cell_distrib unknown 20210912 unknown unknown unknown ution_width T unknown 20210912 unknown unknown unknown T unknown 20210912 unknown unknown unknown T unknown 20210912 unknown unknown unknown T unknown 20210912 unknown unknown unknown T unknown [id number] unknown unknown unknown T unknown [id number] unknown unknown unknown NEUTROPHILS_AUTO_ unknown 20210912 unknown unknown unkno wn T unknown 20210912 unknown unknown unknown T unknown 20210912 unknown unknown unknown T unknown 20210912 unknown unknown unknown MONOCYTES_AUTO_ unknown 20210912 unknown unknown unknown T unknown 20210912 unknown unknown unknown T unknown 20210912 unknown unknown unknown T unknown 20210912 unknown unknown unknown T unknown 20210912 unknown unknown unknown LYMPHOCYTES_AUTO_ unknown 20210912 unknown unknown unkno wn T unknown 20210912 unknown unknown unknown T unknown 20210912 unknown unknown unknown T unknown 20210912 unknown unknown unknown T unknown 20210912 unknown unknown unknown T unknown 20210912 unknown unknown unknown T unknown 20210912 unknown unknown unknown T unknown 20210912 unknown unknown unknown GFR_-_MDRD unknown 20210912 unknown unknown unknown T unknown 20210912 unknown unknown unknown EOSINOPHILS_AUTO_ unknown 20210912 unknown unknown unkno wn T unknown 20210912 unknown unknown unknown XII_-_F-QYEUSXMZ_QGJPR unknown 20210912 unknown unknown unknown IN T unknown 20210912 unknown unknown unknown T unknown 20210912 unknown unknown unknown T unknown 20210912 unknown unknown unknown T unknown 20210912 unknown unknown unknown T unknown 20210912 unknown unknown unknown T unknown 20210912 unknown unknown unknown T unknown 20210912 unknown unknown unknown BILIRUBIN_TOTAL unknown 20210912 unknown unknown unknown BASOPHILS_AUTO_ unknown 20210912 unknown unknown unknown T unknown 20210912 unknown unknown unknown T unknown 20210912 unknown unknown unknown T unknown 20210912 unknown unknown unknown T unknown 20210912 unknown unknown unknown ALT_ALANINE_AMINOTRANS unknown 20210912 unknown unknown unknown FERASE ALKALINE_PHOSPHATASE unknown 20210912 unknown unknown un known T unknown 20210912 unknown unknown unknown T unknown 20210912 unknown unknown unknown ALBUMIN_GLOBULIN_RATIO unknown 20210912 unknown unknown unknown facility observation status value reference units lab code abn ormal line range notes [facility] urea_nitrog unknown 28 unknown mg/dL _9 unknown unknown Clinic en_blood [facility] Erythrocyte unknown 3.65 10 unknown _789-8 unknow n unknown Clinic s_volume_in_ 6/UL Primary Blood_by_Aut Care & omated_count [facility] Erythrocyte unknown 19.1 unknown % _788-0 unknown unknown Clinic _distributio Primary n_width_Rati Care & o_by_Automat Ancillary ed_count Services [facility] MCV_Entitic unknown 88.5 unknown fL _787-2 unknown unknown Clinic _volume_by_A Primary utomated_cou Care & nt [facility] MCH_Entitic unknown 26.0 unknown pg _785-6 unknown unknown Clinic _mass_by_Aut Primary omated_count Care & [facility] Platelets_v unknown 201 10 unknown _777-3 unknown unknown Clinic olume_in_Blo 3/UL Primary od_by_Automa Care & ted_count [facility] Platelet_me unknown 12.0 unknown fL _776-5 unknown unknown Clinic an_volume_En Primary titic_volume Care & _in_Blood_by Ancillary _[facility] neutrophil_ unknown 7.5 10 unknown _752-6 unknown unknown Clinic count_blood 3/UL [facility] monocyte_co unknown 0.7 10 unknown _743-5 unknown unknown Clinic unt_blood 3/UL [facility] lymphocyte_ unknown 1.5 10 unknown _732-8 unknown unknown Clinic count_blood 3/UL [facility] Hemoglobin_ unknown 9.5 unknown g/dL _718-7 unknown unknown Clinic Mass_volume_ Primary in_Blood [facility] eosinophil_ unknown 0.2 10 unknown _712-0 unknown unknown Clinic count_blood 3/UL [facility] Basophils_v unknown 0.0 10 unknown _705-4 unknown unknown Clinic olume_in_Blo 3/UL Primary od_by_Manual Care & _count [facility] leukocyte_c unknown 9.9 X10 unknown _68 unknow n unknown Clinic ount_blood 3/UL [facility] erythrocyte unknown 3.65 10 unknown _67 unknow n unknown Clinic _RBC_count 6/UL [facility] Leukocytes_ unknown 9.9 X10 unknown _6690-2 unkno wn unknown Clinic volume_in_Bl 3/UL Primary ood_by_Autom Care & ated_count [facility] Glomerular_ unknown 101 unknown mL/mi _66455 unknown unknown Clinic Filtration_r n Primary ate [facility] platelet_co unknown 201 10 unknown _66 unknown unknown Clinic unt 3/UL [facility] hemoglobin_ unknown 9.5 unknown g/dL _65 unknown unknown Clinic blood [facility] hematocrit_ unknown 32.3 unknown % _64 unknown unknown Clinic blood [facility] potassium_b unknown 3.7 unknown meq/L _6298-4 unknow n unknown Clinic lood [facility] Glomerular_f unknown 101 unknown mL/mi _48642-3 unkno wn unknown Clinic iltration_ra n Primary te_1.73_sq_M Care & .predicted_a Ancillary mong_non-ida Services cks_Volume_R [facility] ate_Area_in_ Serum_Plasma _or_Blood_by _Creatinine- based_formul a_MDRD_ [facility] Hematocrit_ unknown 32.3 unknown % _4544-3 unknow n unknown Clinic Volume_Fract Primary ion_of_Blood Care & _by_Automate Ancillary d_count Services [facility] carbon_diox unknown 34 unknown mmol/ _3962 unknown unknown Clinic ide_serum_to L Primary dale [facility] blood_gluco unknown 129 unknown mg/dL _3565 unknown unknown Clinic se [facility] potassium_b unknown 3.7 unknown meq/L _3483 unknown unknown Clinic lood [facility] mean_corpus unknown 88.5 unknown fL _315 unknown unknown Clinic cular_volume Primary _RBC [facility] Urea_nitrog unknown 28 unknown mg/dL _3094-0 unknow n unknown Clinic en_Mass_volu Primary me_in_Serum_ Care & or_Plasma [facility] Sodium_Mole unknown 138 unknown mmol/ _2951-2 unknow n unknown Clinic s_volume_in_ L Primary Serum_or_Pla Care & sma [facility] eosinophil_ unknown 0.2 10 unknown _285 unknown unknown Clinic count_blood 3/UL [facility] anion_gap_s unknown 10.0 unknown _279 unknown unknown Clinic joanne [facility] mean_platel unknown 12.0 unknown fL _2784 unknown unknown Clinic et_volume [facility] basophil_co unknown 0.0 10 unknown _2427 unknown unknown Clinic unt_blood 3/UL [facility] monocyte_co unknown 0.7 10 unknown _2422 unknown unknown Clinic unt_blood 3/UL [facility] lymphocyte_ unknown 1.5 10 unknown _2420 unknown unknown Clinic count_blood 3/UL [facility] neutrophil_ unknown 7.5 10 unknown _2418 unknown unknown Clinic count_blood 3/UL [facility] Glucose_Mas unknown 129 unknown mg/dL _2345-7 unknow n unknown Clinic s_volume_in_ Primary Serum_or_Pla Care & sma [facility] Creatinine_ unknown 0.6 unknown mg/dL _2160-0 unknow n unknown Clinic Mass_volume_ Primary in_Serum_or_ Care & Plasma [facility] Chloride_Mo unknown 94 unknown mmol/ _5-0 unknow n unknown Clinic les_volume_i L Primary n_Serum_or_P Care & lasma [facility] carbon_diox unknown 34 unknown mmol/ _8-9 unknow n unknown Clinic ide_serum_to L Primary dale [facility] Calcium_Mol unknown 8.9 unknown mg/dL _1999-8 unknow n unknown Clinic es_volume_in Primary _Serum_or_Pl Care & asma [facility] Anion_gap_4 unknown 10.0 unknown _1863-0 unknow n unknown Clinic _in_Serum_or Primary _Plasma [facility] creatinine_ unknown 0.6 unknown mg/dL _18 unknown unknown Clinic serum [facility] mean_corpus unknown 29.4 unknown g/dL _17029 unknown unknown Clinic cular_hemogl Primary obin_concent Care & ration_rbc [facility] sodium_seru unknown 138 unknown mmol/ _159 unknown unknown Clinic m L [facility] chloride_se unknown 94 unknown mmol/ _13 unknown unknown Clinic rum L [facility] calcium_ser unknown 8.9 unknown mg/dL _11 unknown unknown Clinic um [facility] mean_corpus unknown 26.0 unknown pg _1031 unknown unknown Clinic cular_hemogl Primary obin_RBC [facility] red_blood_c unknown 19.1 unknown % _1030 unknown unknown Clinic ell_distribu Primary tion_width [facility] T unknown 9.9 X10 unknown WBC unknown un known Clinic 3/UL [facility] T unknown 19.1 unknown % RDW unknown [facility] T unknown 3.65 10 unknown RBC unknown un known Clinic 6/UL [facility] T unknown 201 10 unknown PLT unknown [facility] 3/UL [facility] PLT_-_PLATE unknown 201 10 unknown PLT unknown unknown Clinic LET_COUNT 3/UL [facility] NEUTROPHILS unknown 7.5 10 unknown NE_ unknown unknown Clinic _AUTO_ 3/UL [facility] T unknown 7.5 10 unknown NEUT_AUTO_ unknown unknown Clinic 3/UL [facility] T unknown 138 unknown mmol/ NA unknown [facility] L [facility] T unknown 12.0 unknown fL MPV unknown [facility] MONOCYTES_A unknown 0.7 10 unknown MO_ unknown unknown Clinic UTO_ 3/UL [facility] T unknown 0.7 10 unknown MONO_AUTO_ unknown unknown Clinic 3/UL [facility] T unknown 88.5 unknown fL MCV unknown [facility] T unknown 29.4 unknown g/dL MCHC unknown [facility] T unknown 26.0 unknown pg MCH unknown [facility] LYMPHOCYTES unknown 1.5 10 unknown LY_ unknown unknown Clinic _AUTO_ 3/UL [facility] T unknown 1.5 10 unknown LYMPH_AUTO_ unknown unknown Clinic 3/UL [facility] T unknown 3.7 unknown meq/L K unknown [facility] T unknown 9.5 unknown g/dL HGB unknown [facility] T unknown 32.3 unknown % HCT unknown [facility] T unknown 129 unknown mg/dL GLU unknown [facility] T unknown 101 unknown mL/mi GFR_-_MDRD unknown unknown Clinic n [facility] GFR_-_MDRD unknown 101 unknown mL/mi GFR unknown unknown Clinic n [facility] T unknown 10.0 unknown GAP unknown [facility] EOSINOPHILS unknown 0.2 10 unknown EO_ unknown unknown Clinic _AUTO_ 3/UL [facility] T unknown 0.2 10 unknown EOS_AUTO_ unknown unknown Clinic 3/UL [facility] T unknown 0.6 unknown mg/dL CREAT unknown [facility] T unknown 34 unknown mmol/ CO2 unknown [facility] L [facility] T unknown 94 unknown mmol/ CL unknown [facility] L [facility] T unknown 8.9 unknown mg/dL CA unknown [facility] T unknown 28 unknown mg/dL BUN unknown [facility] BASOPHILS_A unknown 0.0 10 unknown BA_ unknown unknown Clinic UTO_ 3/UL [facility] T unknown 0.0 10 unknown BASO_AUTO_ unknown unknown Clinic 3/UL [facility] urea_nitrog unknown 29 unknown mg/dL _9 unknown unknown Clinic en_blood [facility] Erythrocyte unknown 3.82 10 unknown _789-8 unknow n unknown Clinic s_volume_in_ 6/UL Primary Blood_by_Aut Care & omated_count [facility]illary [facility] Erythrocyte unknown 18.6 unknown % _788-0 unknown unknown Clinic _distributio Primary n_width_Rati Care & o_by_Automat Ancillary ed_count Services [facility] MCV_Entitic unknown 86.9 unknown fL _787-2 unknown unknown Clinic _volume_by_A Primary utomated_cou Care & nt [facility] MCH_Entitic unknown 26.2 unknown pg _785-6 unknown unknown Clinic _mass_by_Aut Primary omated_count Care & [facility]illary Services [facility] Platelets_v unknown 181 10 unknown _777-3 unknown unknown Clinic olume_in_Blo 3/UL Primary od_by_Automa Care & ted_count Ancillary [facility] Platelet_me unknown 11.4 unknown fL _776-5 unknown unknown Clinic an_volume_En Primary titic_volume Care & _in_Blood_by Ancillary _[facility] neutrophil_ unknown 6.8 10 unknown _752-6 unknown unknown Clinic count_blood 3/UL [facility] monocyte_co unknown 0.7 10 unknown _743-5 unknown unknown Clinic unt_blood 3/UL [facility] lymphocyte_ unknown 1.9 10 unknown _732-8 unknown unknown Clinic count_blood 3/UL [facility] Hemoglobin_ unknown 10.0 unknown g/dL _718-7 unknown unknown Clinic Mass_volume_ Primary in_Blood [facility] eosinophil_ unknown 0.2 10 unknown _712-0 unknown unknown Clinic count_blood 3/UL [facility] Basophils_v unknown 0.0 10 unknown _705-4 unknown unknown Clinic olume_in_Blo 3/UL Primary od_by_Manual Care & _count Ancillary Services [facility] leukocyte_c unknown 9.6 X10 unknown _68 unknow n unknown Clinic ount_blood 3/UL [facility] erythrocyte unknown 3.82 10 unknown _67 unknow n unknown Clinic _RBC_count 6/UL [facility] Leukocytes_ unknown 9.6 X10 unknown _6690-2 unkno wn unknown Clinic volume_in_Bl 3/UL Primary ood_by_Autom Care & ated_count [facility]illary [facility] Glomerular_ unknown 85 unknown mL/mi _66455 unknown unknown Clinic Filtration_r n Primary ate [facility] platelet_co unknown 181 10 unknown _66 unknown unknown Clinic unt 3/UL [facility] hemoglobin_ unknown 10.0 unknown g/dL _65 unknown unknown Clinic blood [facility] hematocrit_ unknown 33.2 unknown % _64 unknown unknown Clinic blood [facility] potassium_b unknown 4.1 unknown meq/L _6298-4 unknow n unknown Clinic lood [facility] Glomerular_f unknown 85 unknown mL/mi _48642-3 unkno wn unknown Clinic iltration_ra n Primary te_1.73_sq_M Care & .predicted_a Ancillary mong_non-ida Services cks_Volume_R [facility] ate_Area_in_ Serum_Plasma _or_Blood_by _Creatinine- based_formul a_MDRD_ [facility] Hematocrit_ unknown 33.2 unknown % _4544-3 unknow n unknown Clinic Volume_Fract Primary ion_of_Blood Care & _by_Automate Ancillary d_count Services [facility] carbon_diox unknown 30 unknown mmol/ _3962 unknown unknown Clinic ide_serum_to L Primary dale Care & Ancillary [facility] blood_gluco unknown 138 unknown mg/dL _3565 unknown unknown Clinic se [facility] potassium_b unknown 4.1 unknown meq/L _3483 unknown unknown Clinic lood [facility] mean_corpus unknown 86.9 unknown fL _315 unknown unknown Clinic cular_volume Primary _RBC [facility] Urea_nitrog unknown 29 unknown mg/dL _3094-0 unknow n unknown Clinic en_Mass_volu Primary me_in_Serum_ Care & or_Plasma [facility] Sodium_Mole unknown 136 unknown mmol/ _2951-2 unknow n unknown Clinic s_volume_in_ L Primary Serum_or_Pla Care & sma [facility] eosinophil_ unknown 0.2 10 unknown _285 unknown unknown Clinic count_blood 3/UL [facility] anion_gap_s unknown 12.0 unknown _279 unknown unknown Clinic joanne [facility] mean_platel unknown 11.4 unknown fL _2784 unknown unknown Clinic et_volume [facility] basophil_co unknown 0.0 10 unknown _2427 unknown unknown Clinic unt_blood 3/UL [facility] monocyte_co unknown 0.7 10 unknown _2422 unknown unknown Clinic unt_blood 3/UL [facility] lymphocyte_ unknown 1.9 10 unknown _2420 unknown unknown Clinic count_blood 3/UL [facility] neutrophil_ unknown 6.8 10 unknown _2418 unknown unknown Clinic count_blood 3/UL [facility] Glucose_Mas unknown 138 unknown mg/dL _2345-7 unknow n unknown Clinic s_volume_in_ Primary Serum_or_Pla Care & sma [facility] Creatinine_ unknown 0.7 unknown mg/dL _2160-0 unknow n unknown Clinic Mass_volume_ Primary in_Serum_or_ Care & Plasma [facility] Chloride_Mo unknown 94 unknown mmol/ _5-0 unknow n unknown Clinic les_volume_i L Primary n_Serum_or_P Care & lasma [facility]illary [facility] carbon_diox unknown 30 unknown mmol/ _8-9 unknow n unknown Clinic ide_serum_to L Primary dale Care & [facility] Calcium_Mol unknown 8.7 unknown mg/dL _1999-8 unknow n unknown Clinic es_volume_in Primary _Serum_or_Pl Care & asma [facility] Anion_gap_4 unknown 12.0 unknown _1863-0 unknow n unknown Clinic _in_Serum_or Primary _Plasma [facility] creatinine_ unknown 0.7 unknown mg/dL _18 unknown unknown Clinic serum [facility] mean_corpus unknown 30.1 unknown g/dL _17029 unknown unknown Clinic cular_hemogl Primary obin_concent Care & ration_rbc [facility] sodium_seru unknown 136 unknown mmol/ _159 unknown unknown Clinic m L [facility] chloride_se unknown 94 unknown mmol/ _13 unknown unknown Clinic rum L [facility] calcium_ser unknown 8.7 unknown mg/dL _11 unknown unknown Clinic um [facility] mean_corpus unknown 26.2 unknown pg _1031 unknown unknown Clinic cular_hemogl Primary obin_RBC [facility] red_blood_c unknown 18.6 unknown % _1030 unknown unknown Clinic ell_distribu Primary tion_width Care & [facility] T unknown 9.6 X10 unknown WBC unknown un known Clinic 3/UL [facility] T unknown 18.6 unknown % RDW unknown [facility] T unknown 3.82 10 unknown RBC unknown un known Clinic 6/UL [facility] T unknown 181 10 unknown PLT unknown [facility] Clinic 3/UL [facility] NEUTROPHILS unknown 6.8 10 unknown NE_ unknown unknown Clinic _AUTO_ 3/UL [facility] T unknown 6.8 10 unknown NEUT_AUTO_ unknown unknown Clinic 3/UL [facility] T unknown 136 unknown mmol/ NA unknown [facility] Clinic L [facility] T unknown 11.4 unknown fL MPV unknown [facility] MONOCYTES_A unknown 0.7 10 unknown MO_ unknown unknown Clinic UTO_ 3/UL [facility] T unknown 0.7 10 unknown MONO_AUTO_ unknown unknown Clinic 3/UL [facility] T unknown 86.9 unknown fL MCV unknown [facility] T unknown 30.1 unknown g/dL MCHC unknown [facility] T unknown 26.2 unknown pg MCH unknown [facility] LYMPHOCYTES unknown 1.9 10 unknown LY_ unknown unknown Clinic _AUTO_ 3/UL [facility] T unknown 1.9 10 unknown LYMPH_AUTO_ unknown unknown Clinic 3/UL [facility] T unknown 4.1 unknown meq/L K unknown [facility] T unknown 10.0 unknown g/dL HGB unknown [facility] T unknown 33.2 unknown % HCT unknown [facility] T unknown 138 unknown mg/dL GLU unknown [facility] T unknown 85 unknown mL/mi GFR_-_MDRD unknown unknown Clinic n [facility] GFR_-_MDRD unknown 85 unknown mL/mi GFR unknown unknown Clinic n [facility] T unknown 12.0 unknown GAP unknown [facility] EOSINOPHILS unknown 0.2 10 unknown EO_ unknown unknown Clinic _AUTO_ 3/UL [facility] T unknown 0.2 10 unknown EOS_AUTO_ unknown unknown Clinic 3/UL [facility] T unknown 0.7 unknown mg/dL CREAT unknown [facility] T unknown 30 unknown mmol/ CO2 unknown [facility] L [facility] T unknown 94 unknown mmol/ CL unknown [facility] L [facility] T unknown 8.7 unknown mg/dL CA unknown [facility] T unknown 29 unknown mg/dL BUN unknown [facility] BASOPHILS_A unknown 0.0 10 unknown BA_ unknown unknown Clinic UTO_ 3/UL [facility] T unknown 0.0 10 unknown BASO_AUTO_ unknown unknown Clinic 3/UL [facility] urea_nitrog unknown 28 unknown mg/dL _9 unknown unknown Clinic en_blood [facility] Erythrocyte unknown 3.71 10 unknown _789-8 unknow n unknown Clinic s_volume_in_ 6/UL Primary Blood_by_Aut Care & omated_count [facility]illary [facility] Erythrocyte unknown 17.9 unknown % _788-0 unknown unknown Clinic _distributio Primary n_width_Rati Care & o_by_Automat Ancillary ed_count Services [facility] MCV_Entitic unknown 88.1 unknown fL _787-2 unknown unknown Clinic _volume_by_A Primary utomated_cou Care & nt [facility]illary [facility] MCH_Entitic unknown 25.9 unknown pg _785-6 unknown unknown Clinic _mass_by_Aut Primary omated_count Care & [facility]illary [facility] Platelets_v unknown 162 10 unknown _777-3 unknown unknown Clinic olume_in_Blo 3/UL Primary od_by_Automa Care & ted_count [facility]illary [facility] Platelet_me unknown 12.6 unknown fL _776-5 unknown unknown Clinic an_volume_En Primary titic_volume Care & _in_Blood_by Ancillary _[facility] neutrophil_ unknown 8.6 10 unknown _752-6 unknown unknown Clinic count_blood 3/UL [facility] monocyte_co unknown 0.8 10 unknown _743-5 unknown unknown Clinic unt_blood 3/UL [facility] lymphocyte_ unknown 1.8 10 unknown _732-8 unknown unknown Clinic count_blood 3/UL [facility] Hemoglobin_ unknown 9.6 unknown g/dL _718-7 unknown unknown Clinic Mass_volume_ Primary in_Blood Care & [facility] eosinophil_ unknown 0.2 10 unknown _712-0 unknown unknown Clinic count_blood 3/UL [facility] Basophils_v unknown 0.0 10 unknown _705-4 unknown unknown Clinic olume_in_Blo 3/UL Primary od_by_Manual Care & _count Ancillary [facility] leukocyte_c unknown 11.5 X10 unknown _68 unkno wn unknown Clinic ount_blood 3/UL [facility] erythrocyte unknown 3.71 10 unknown _67 unknow n unknown Clinic _RBC_count 6/UL [facility] Leukocytes_ unknown 11.5 X10 unknown _6690-2 unkn own unknown Clinic volume_in_Bl 3/UL Primary ood_by_Autom Care & ated_count [facility]illary [facility] Glomerular_ unknown 101 unknown mL/mi _66455 unknown unknown Clinic Filtration_r n Primary ate [facility] & [facility] platelet_co unknown 162 10 unknown _66 unknown unknown Clinic unt 3/UL [facility] hemoglobin_ unknown 9.6 unknown g/dL _65 unknown unknown Clinic blood [facility] hematocrit_ unknown 32.7 unknown % _64 unknown unknown Clinic blood [facility] potassium_b unknown 3.8 unknown meq/L _6298-4 unknow n unknown Clinic lood [facility] Glomerular_f unknown 101 unknown mL/mi _48642-3 unkno wn unknown Clinic iltration_ra n Primary te_1.73_sq_M Care & .predicted_a Ancillary mong_non-ida Services cks_Volume_R [facility] ate_Area_in_ Serum_Plasma _or_Blood_by _Creatinine- based_formul a_MDRD_ [facility] Hematocrit_ unknown 32.7 unknown % _4544-3 unknow n unknown Clinic Volume_Fract Primary ion_of_Blood Care & _by_Automate Ancillary d_count Services [facility] carbon_diox unknown 34 unknown mmol/ _3962 unknown unknown Clinic ide_serum_to L Primary dale Care & Ancillary [facility] blood_gluco unknown 160 unknown mg/dL _3565 unknown unknown Clinic se [facility] potassium_b unknown 3.8 unknown meq/L _3483 unknown unknown Clinic lood [facility] magnesium_s unknown 2.1 unknown mg/dL _32 unknown unknown Clinic joanne [facility] mean_corpus unknown 88.1 unknown fL _315 unknown unknown Clinic cular_volume Primary _RBC Care & [facility] Urea_nitrog unknown 28 unknown mg/dL _3094-0 unknow n unknown Clinic en_Mass_volu Primary me_in_Serum_ Care & or_Plasma [facility]illary [facility] Sodium_Mole unknown 137 unknown mmol/ _2951-2 unknow n unknown Clinic s_volume_in_ L Primary Serum_or_Pla Care & sma Ancillary [facility] eosinophil_ unknown 0.2 10 unknown _285 unknown unknown Clinic count_blood 3/UL [facility] anion_gap_s unknown 10.0 unknown _279 unknown unknown Clinic joanne [facility] mean_platel unknown 12.6 unknown fL _2784 unknown unknown Clinic et_volume [facility] Magnesium_M unknown 2.1 unknown mg/dL _2601-3 unknow n unknown Clinic oles_volume_ Primary in_Serum_or_ Care & Plasma Ancillary Services [facility] basophil_co unknown 0.0 10 unknown _2427 unknown unknown Clinic unt_blood 3/UL [facility] monocyte_co unknown 0.8 10 unknown _2422 unknown unknown Clinic unt_blood 3/UL [facility] lymphocyte_ unknown 1.8 10 unknown _2420 unknown unknown Clinic count_blood 3/UL [facility] neutrophil_ unknown 8.6 10 unknown _2418 unknown unknown Clinic count_blood 3/UL [facility] Glucose_Mas unknown 160 unknown mg/dL _2345-7 unknow n unknown Clinic s_volume_in_ Primary Serum_or_Pla Care & sma Ancillary Services [facility] Creatinine_ unknown 0.6 unknown mg/dL _2160-0 unknow n unknown Clinic Mass_volume_ Primary in_Serum_or_ Care & Plasma Ancillary [facility] Chloride_Mo unknown 93 unknown mmol/ _2075-0 unknow n unknown Clinic les_volume_i L Primary n_Serum_or_P Care & lasma Ancillary [facility] carbon_diox unknown 34 unknown mmol/ _2028-9 unknow n unknown Clinic ide_serum_to L Primary dale Care & Ancillary [facility] Calcium_Mol unknown 8.7 unknown mg/dL _2000-8 unknow n unknown Clinic es_volume_in Primary _Serum_or_Pl Care & asma Ancillary [facility] Anion_gap_4 unknown 10.0 unknown _1863-0 unknow n unknown Clinic _in_Serum_or Primary _Plasma Care & [facility]illary Services [facility] creatinine_ unknown 0.6 unknown mg/dL _18 unknown unknown Clinic serum [facility] mean_corpus unknown 29.4 unknown g/dL _17029 unknown unknown Clinic cular_hemogl Primary obin_concent Care & ration_rbc [facility]illary [facility] sodium_seru unknown 137 unknown mmol/ _159 unknown unknown Clinic m L [facility] chloride_se unknown 93 unknown mmol/ _13 unknown unknown Clinic rum L [facility] calcium_ser unknown 8.7 unknown mg/dL _11 unknown unknown Clinic um [facility] mean_corpus unknown 25.9 unknown pg _1031 unknown unknown Clinic cular_hemogl Primary obin_RBC Care & [facility] red_blood_c unknown 17.9 unknown % _1030 unknown unknown Clinic ell_distribu Primary tion_width Care & Ancillary [facility] T unknown 11.5 X10 unknown WBC unknown u nknown Clinic 3/UL [facility] T unknown 17.9 unknown % RDW unknown [facility] T unknown 3.71 10 unknown RBC unknown un known Clinic 6/UL [facility] T unknown 162 10 unknown PLT unknown [facility] 3/UL [facility] NEUTROPHILS unknown 8.6 10 unknown NE_ unknown unknown Clinic _AUTO_ 3/UL [facility] T unknown 8.6 10 unknown NEUT_AUTO_ unknown unknown Clinic 3/UL [facility] T unknown 137 unknown mmol/ NA unknown [facility] L [facility] T unknown 12.6 unknown fL MPV unknown [facility] MONOCYTES_A unknown 0.8 10 unknown MO_ unknown unknown Clinic UTO_ 3/UL [facility] T unknown 0.8 10 unknown MONO_AUTO_ unknown unknown Clinic 3/UL [facility] T unknown 2.1 unknown mg/dL MG unknown [facility] T unknown 88.1 unknown fL MCV unknown [facility] T unknown 29.4 unknown g/dL MCHC unknown [facility] T unknown 25.9 unknown pg MCH unknown [facility] LYMPHOCYTES unknown 1.8 10 unknown LY_ unknown unknown Clinic _AUTO_ 3/UL [facility] T unknown 1.8 10 unknown LYMPH_AUTO_ unknown unknown Clinic 3/UL [facility] T unknown 3.8 unknown meq/L K unknown [facility] T unknown 9.6 unknown g/dL HGB unknown [facility] T unknown 32.7 unknown % HCT unknown [facility] T unknown 160 unknown mg/dL GLU unknown [facility] T unknown 101 unknown mL/mi GFR_-_MDRD unknown unknown Clinic n [facility] GFR_-_MDRD unknown 101 unknown mL/mi GFR unknown unknown Clinic n [facility] T unknown 10.0 unknown GAP unknown [facility] EOSINOPHILS unknown 0.2 10 unknown EO_ unknown unknown Clinic _AUTO_ 3/UL [facility] T unknown 0.2 10 unknown EOS_AUTO_ unknown unknown Clinic 3/UL [facility] T unknown 0.6 unknown mg/dL CREAT unknown [facility] T unknown 34 unknown mmol/ CO2 unknown [facility] L [facility] T unknown 93 unknown mmol/ CL unknown [facility] L [facility] T unknown 8.7 unknown mg/dL CA unknown [facility] T unknown 28 unknown mg/dL BUN unknown [facility] BASOPHILS_A unknown 0.0 10 unknown BA_ unknown unknown Clinic UTO_ 3/UL [facility] T unknown 0.0 10 unknown BASO_AUTO_ unknown unknown Clinic 3/UL [facility] urea_nitrog unknown 29 unknown mg/dL _9 unknown unknown Clinic en_blood [facility] Erythrocyte unknown 3.92 10 unknown _789-8 unknow n unknown Clinic s_volume_in_ 6/UL Primary Blood_by_Aut Care & omated_count Ancillary Services [facility] Erythrocyte unknown 17.8 unknown % _788-0 unknown unknown Clinic _distributio Primary n_width_Rati Care & o_by_Automat Ancillary ed_count Services [facility] MCV_Entitic unknown 88.8 unknown fL _787-2 unknown unknown Clinic _volume_by_A Primary utomated_cou Care & nt Ancillary Services [facility] MCH_Entitic unknown 25.8 unknown pg _785-6 unknown unknown Clinic _mass_by_Aut Primary omated_count Care & Ancillary Services [facility] Platelets_v unknown 183 10 unknown _777-3 unknown unknown Clinic olume_in_Blo 3/UL Primary od_by_Automa Care & ted_count Ancillary Services [facility] Platelet_me unknown 12.6 unknown fL _776-5 unknown unknown Clinic an_volume_En Primary titic_volume Care & _in_Blood_by Ancillary _[facility] neutrophil_ unknown 9.6 10 unknown _752-6 unknown unknown Clinic count_blood 3/UL [facility] monocyte_co unknown 1.0 10 unknown _743-5 unknown unknown Clinic unt_blood 3/UL [facility] lymphocyte_ unknown 2.2 10 unknown _732-8 unknown unknown Clinic count_blood 3/UL [facility] Hemoglobin_ unknown 10.1 unknown g/dL _718-7 unknown unknown Clinic Mass_volume_ Primary in_Blood Care & Ancillary Services [facility] eosinophil_ unknown 0.2 10 unknown _712-0 unknown unknown Clinic count_blood 3/UL [facility] Basophils_v unknown 0.0 10 unknown _705-4 unknown unknown Clinic olume_in_Blo 3/UL Primary od_by_Manual Care & _count Ancillary Services [facility] leukocyte_c unknown 13.1 X10 unknown _68 unkno wn unknown Clinic ount_blood 3/UL [facility] erythrocyte unknown 3.92 10 unknown _67 unknow n unknown Clinic _RBC_count 6/UL [facility] Leukocytes_ unknown 13.1 X10 unknown _6690-2 unkn own unknown Clinic volume_in_Bl 3/UL Primary ood_by_Autom Care & ated_count Ancillary [facility] Glomerular_ unknown 101 unknown mL/mi _66455 unknown unknown Clinic Filtration_r n Primary ate Care & Ancillary Services [facility] platelet_co unknown 183 10 unknown _66 unknown unknown Clinic unt 3/UL [facility] hemoglobin_ unknown 10.1 unknown g/dL _65 unknown unknown Clinic blood [facility] hematocrit_ unknown 34.8 unknown % _64 unknown unknown Clinic blood [facility] potassium_b unknown 3.9 unknown meq/L _6298-4 unknow n unknown Clinic lood [facility] WBC_urine_o unknown 0-3 /HPF unknown _5821-4 unkn own unknown Clinic n_microscopy [facility] Urobilinoge unknown 0.2 unknown _5818-0 unknow n unknown Clinic n_Presence_i (NORMAL) Primary n_Urine_by_T Care & est_strip [facility]illary [facility] Specific_gr unknown 1.020 unknown _5811-5 unknow n unknown Clinic avity_of_Uri Primary ne_by_Test_s Care & trip Ancillary Services [facility] Nitrite_Pre unknown NEGATIVE unknown _5802-4 unkn own unknown Clinic sence_in_Uri Primary ne_by_Test_s Care & trip Ancillary [facility] Leukocyte_e unknown TRACE unknown _5799-2 unknow n unknown Clinic sterase_Pres Primary ence_in_Urin Care & e_by_Test_st Ancillary rip Services [facility] Ketones_Mas unknown NEGATIVE unknown _5797-6 unkn own unknown Clinic s_volume_in_ Primary Urine_by_Tes Care & t_strip Ancillary Services [facility] Color_of_Ur unknown RED/BLOOD unknown _5778-6 unk nown unknown Clinic ine Y [facility] Bilirubin.t unknown NEGATIVE unknown _5770-3 unkn own unknown Clinic otal_Presenc Primary e_in_Urine_b Care & y_Test_strip Ancillary Services [facility] clarity_uri unknown BLOODY unknown _5589 unknown unknown Clinic ne_point [facility] pH_study_of unknown 6.0 unknown _51641 unknown unknown Clinic _acidity Primary [facility] & [facility] Services [facility] Glomerular_f unknown 101 unknown mL/mi _48642-3 unkno wn unknown Clinic iltration_ra n Primary te_1.73_sq_M Care & .predicted_a Ancillary mong_non-ida Services cks_Volume_R [facility] ate_Area_in_ Serum_Plasma _or_Blood_by _Creatinine- based_formul a_MDRD_ Walk-In Hematocrit_ unknown 34.8 unknown % _4544-3 unknow n unknown Clinic Volume_Fract Primary ion_of_Blood Care & _by_Automate Ancillary d_count Services [facility] carbon_diox unknown 36 unknown mmol/ _3962 unknown unknown Clinic ide_serum_to L Primary dale Care & Ancillary Services [facility] blood_gluco unknown 145 unknown mg/dL _3565 unknown unknown Clinic se [facility] potassium_b unknown 3.9 unknown meq/L _3483 unknown unknown Clinic lood [facility] glucose_uri unknown NEGATIVE unknown _3369 unkno wn unknown Clinic ne mg/dL Primary [facility] Services [facility] leukocyte_e unknown TRACE unknown _327 unknown unknown Clinic sterase_urin Primary e_by_dipstic Care & k Ancillary Services [facility] urobilinoge unknown 0.2 unknown _326 unknown unknown Clinic n_urine_semi (NORMAL) Primary quantitative Care & _dipstick_ [facility] specific_gr unknown 1.020 unknown _325 unknown unknown Clinic avity_urine [facility] nitrite_uri unknown NEGATIVE unknown _323 unkno wn unknown Clinic ne_semiquant Primary itative [facility] ketones_uri unknown NEGATIVE unknown _322 unkno wn unknown Clinic ne_by_test_s Primary trip [facility] magnesium_s unknown 2.1 unknown mg/dL _32 unknown unknown Clinic joanne [facility] bilirubin_u unknown NEGATIVE unknown _319 unkno wn unknown Clinic rine [facility] mean_corpus unknown 88.8 unknown fL _315 unknown unknown Clinic cular_volume Primary _RBC [facility] Urea_nitrog unknown 29 unknown mg/dL _3094-0 unknow n unknown Clinic en_Mass_volu Primary me_in_Serum_ Care & or_Plasma [facility] Sodium_Mole unknown 138 unknown mmol/ _2951-2 unknow n unknown Clinic s_volume_in_ L Primary Serum_or_Pla Care & sma [facility] eosinophil_ unknown 0.2 10 unknown _285 unknown unknown Clinic count_blood 3/UL [facility] anion_gap_s unknown 9.0 unknown _279 unknown unknown Clinic joanne [facility] mean_platel unknown 12.6 unknown fL _2784 unknown unknown Clinic et_volume [facility] urine_color unknown RED/BLOOD unknown _2751 unkn own unknown Clinic Y [facility] Magnesium_M unknown 2.1 unknown mg/dL _2601-3 unknow n unknown Clinic oles_volume_ Primary in_Serum_or_ Care & Plasma [facility] basophil_co unknown 0.0 10 unknown _2427 unknown unknown Clinic unt_blood 3/UL [facility] monocyte_co unknown 1.0 10 unknown _2422 unknown unknown Clinic unt_blood 3/UL [facility] lymphocyte_ unknown 2.2 10 unknown _2420 unknown unknown Clinic count_blood 3/UL [facility] neutrophil_ unknown 9.6 10 unknown _2418 unknown unknown Clinic count_blood 3/UL [facility] Glucose_Mas unknown NEGATIVE unknown _0-7 unkn own unknown Clinic s_volume_in_ mg/dL Primary Urine [facility] Glucose_Mas unknown 145 unknown mg/dL _5-7 unknow n unknown Clinic s_volume_in_ Primary Serum_or_Pla Care & sma [facility] Creatinine_ unknown 0.6 unknown mg/dL _0-0 unknow n unknown Clinic Mass_volume_ Primary in_Serum_or_ Care & Plasma [facility] Chloride_Mo unknown 93 unknown mmol/ _2074-0 unknow n unknown Clinic les_volume_i L Primary n_Serum_or_P Care & lasma [facility] carbon_diox unknown 36 unknown mmol/ _2027- unknow n unknown Clinic ide_serum_to L Primary dale Care & [facility] Calcium_Mol unknown 8.8 unknown mg/dL _1999- unknow n unknown Clinic es_volume_in Primary _Serum_or_Pl Care & asma [facility] Anion_gap_4 unknown 9.0 unknown _3-0 unknow n unknown Clinic _in_Serum_or Primary _Plasma [facility] creatinine_ unknown 0.6 unknown mg/dL _18 unknown unknown Clinic serum [facility] mean_corpus unknown 29.0 unknown g/dL _17029 unknown unknown Clinic cular_hemogl Primary obin_concent Care & ration_rbc [facility] sodium_seru unknown 138 unknown mmol/ _159 unknown unknown Clinic m L [facility] chloride_se unknown 93 unknown mmol/ _13 unknown unknown Clinic rum L [facility] calcium_ser unknown 8.8 unknown mg/dL _11 unknown unknown Clinic um [facility] mean_corpus unknown 25.8 unknown pg _1031 unknown unknown Clinic cular_hemogl Primary obin_RBC [facility] red_blood_c unknown 17.8 unknown % _1030 unknown unknown Clinic ell_distribu Primary tion_width Care & [facility] WBC_urine_o unknown 0-3 /HPF unknown _1016 unkno wn unknown Clinic n_microscopy [facility] T unknown 13.1 X10 unknown WBC unknown u nknown [facility] 3/UL [facility] WBC_URINE unknown 0-3 /HPF unknown UWBC unknown unknown Clinic [facility] UROBILINOGE unknown 0.2 unknown UUROBIL unknow n unknown Clinic N_URINE (NORMAL) [facility] SPECIFIC_GR unknown 1.020 unknown USG unknown unknown Clinic AVITY_URINE [facility] T unknown 0-3 /HPF unknown UR_WBC unknown u [facility] T unknown 0.2 unknown UR_URO unknown [facility] (NORMAL) [facility] T unknown 1.020 unknown UR_SG unknown [facility] T unknown 6.0 unknown UR_PH unknown [facility] T unknown NEGATIVE unknown UR_NIT unknown u [facility] T unknown TRACE unknown UR_LEU_ESTE unknown unknown Clinic RASE [facility] T unknown NEGATIVE unknown UR_KETO_UA_ unkno wn unknown Clinic [facility] T unknown NEGATIVE unknown UR_GLU unknown u [facility] mg/dL [facility] T unknown RED/BLOOD unknown UR_COLOR unknown unknown Clinic Y [facility] T unknown BLOODY unknown UR_CLARITY unknown unknown Clinic [facility] T unknown NEGATIVE unknown UR_BILI unknown unknown Clinic [facility] PH_URINE unknown 6.0 [facility] NITRITE_URI unknown NEGATIVE unknown UNITRITE unk nown unknown Clinic NE [facility] LEUKOCYTE_E unknown TRACE unknown ULEUK unknown unknown Clinic STERASE_URIN Primary E [facility] KETONES_URI unknown NEGATIVE unknown UKET unkno wn unknown Clinic NE_UA_ [facility] GLUCOSE_URI unknown NEGATIVE unknown UGLUC unkno wn unknown Clinic NE_UA_ mg/dL [facility] COLOR_URINE unknown RED/BLOOD unknown UCOL unkn own unknown Clinic Y [facility] CLARITY_URI unknown BLOODY unknown UCLAR unknown unknown Clinic NE [facility] BILIRUBIN_U unknown NEGATIVE unknown UBIL unkno wn unknown Clinic RINE [facility] T unknown 17.8 unknown % RDW unknown [facility] T unknown 3.92 10 unknown RBC unknown un known Clinic 6/UL [facility] T unknown 183 10 unknown PLT unknown [facility] Clinic 3/UL [facility] NEUTROPHILS unknown 9.6 10 unknown NE_ unknown unknown Clinic _AUTO_ 3/UL [facility] T unknown 9.6 10 unknown NEUT_AUTO_ unknown unknown Clinic 3/UL [facility] T unknown 138 unknown mmol/ NA unknown [facility] L [facility] T unknown 12.6 unknown fL MPV unknown [facility] MONOCYTES_A unknown 1.0 10 unknown MO_ unknown unknown Clinic UTO_ 3/UL [facility] T unknown 1.0 10 unknown MONO_AUTO_ unknown unknown Clinic 3/UL [facility] T unknown 2.1 unknown mg/dL MG unknown [facility] T unknown 88.8 unknown fL MCV unknown [facility] T unknown 29.0 unknown g/dL MCHC unknown [facility] T unknown 25.8 unknown pg MCH unknown [facility] LYMPHOCYTES unknown 2.2 10 unknown LY_ unknown unknown Clinic _AUTO_ 3/UL [facility] T unknown 2.2 10 unknown LYMPH_AUTO_ unknown unknown Clinic 3/UL [facility] T unknown 3.9 unknown meq/L K unknown [facility] T unknown 10.1 unknown g/dL HGB unknown [facility] T unknown 34.8 unknown % HCT unknown [facility] T unknown 145 unknown mg/dL GLU unknown [facility] T unknown 101 unknown mL/mi GFR_-_MDRD unknown unknown Clinic n [facility] GFR_-_MDRD unknown 101 unknown mL/mi GFR unknown unknown Clinic n [facility] T unknown 9.0 unknown GAP unknown [facility] EOSINOPHILS unknown 0.2 10 unknown EO_ unknown unknown Clinic _AUTO_ 3/UL [facility] T unknown 0.2 10 unknown EOS_AUTO_ unknown unknown [facility] 3/UL [facility] T unknown 0.6 unknown mg/dL CREAT unknown [facility] T unknown 36 unknown mmol/ CO2 unknown [facility] L [facility] T unknown 93 unknown mmol/ CL unknown [facility] L [facility] T unknown 8.8 unknown mg/dL CA unknown [facility] T unknown 29 unknown mg/dL BUN unknown [facility] BASOPHILS_A unknown 0.0 10 unknown BA_ unknown unknown Clinic UTO_ 3/UL [facility] T unknown 0.0 10 unknown BASO_AUTO_ unknown unknown Clinic 3/UL [facility] urea_nitrog unknown 31 unknown mg/dL _9 unknown unknown Clinic en_blood [facility] Erythrocyte unknown 3.82 10 unknown _789-8 unknow n unknown Clinic s_volume_in_ 6/UL Primary Blood_by_Aut Care & omated_count [facility] Erythrocyte unknown 17.5 unknown % _788-0 unknown unknown Clinic _distributio Primary n_width_Rati Care & o_by_Automat Ancillary ed_count Services [facility] MCV_Entitic unknown 85.6 unknown fL _787-2 unknown unknown Clinic _volume_by_A Primary utomated_cou Care & nt [facility] MCH_Entitic unknown 26.2 unknown pg _785-6 unknown unknown Clinic _mass_by_Aut Primary omated_count Care & [facility] Platelets_v unknown 179 10 unknown _777-3 unknown unknown Clinic olume_in_Blo 3/UL Primary od_by_Automa Care & ted_count [facility] Platelet_me unknown 11.8 unknown fL _776-5 unknown unknown Clinic an_volume_En Primary titic_volume Care & _in_Blood_by Ancillary _[facility] neutrophil_ unknown 10.8 10 unknown _752-6 unknow n unknown Clinic count_blood 3/UL [facility] monocyte_co unknown 0.7 10 unknown _743-5 unknown unknown Clinic unt_blood 3/UL [facility] lymphocyte_ unknown 1.0 10 unknown _732-8 unknown unknown Clinic count_blood 3/UL [facility] Hemoglobin_ unknown 10.0 unknown g/dL _718-7 unknown unknown Clinic Mass_volume_ Primary in_Blood Care & [facility] eosinophil_ unknown 0.0 10 unknown _712-0 unknown unknown Clinic count_blood 3/UL [facility] Basophils_v unknown 0.0 10 unknown _705-4 unknown unknown Clinic olume_in_Blo 3/UL Primary od_by_Manual Care & _count [facility] leukocyte_c unknown 12.6 X10 unknown _68 unkno wn unknown Clinic ount_blood 3/UL [facility] erythrocyte unknown 3.82 10 unknown _67 unknow n unknown Clinic _RBC_count 6/UL [facility] Leukocytes_ unknown 12.6 X10 unknown _6690-2 unkn own unknown Clinic volume_in_Bl 3/UL Primary ood_by_Autom Care & ated_count [facility] Glomerular_ unknown 85 unknown mL/mi _66455 unknown unknown Clinic Filtration_r n Primary ate [facility] & [facility] platelet_co unknown 179 10 unknown _66 unknown unknown Clinic unt 3/UL [facility] hemoglobin_ unknown 10.0 unknown g/dL _65 unknown unknown Clinic blood [facility] hematocrit_ unknown 32.7 unknown % _64 unknown unknown Clinic blood [facility] potassium_b unknown 4.7 unknown meq/L _6298-4 unknow n unknown Clinic lood [facility] Glomerular_f unknown 85 unknown mL/mi _48642-3 unkno wn unknown Clinic iltration_ra n Primary te_1.73_sq_M Care & .predicted_a Ancillary mong_non-ida Services cks_Volume_R [facility] ate_Area_in_ Serum_Plasma _or_Blood_by _Creatinine- based_formul a_MDRD_ [facility] Hematocrit_ unknown 32.7 unknown % _4544-3 unknow n unknown Clinic Volume_Fract Primary ion_of_Blood Care & _by_Automate Ancillary d_count Services [facility] carbon_diox unknown 34 unknown mmol/ _3962 unknown unknown Clinic ide_serum_to L Primary dale Care & [facility] blood_gluco unknown 233 unknown mg/dL _3565 unknown unknown Clinic se [facility] potassium_b unknown 4.7 unknown meq/L _3483 unknown unknown Clinic lood [facility] magnesium_s unknown 2.3 unknown mg/dL _32 unknown unknown Clinic joanne [facility] mean_corpus unknown 85.6 unknown fL _315 unknown unknown Clinic cular_volume Primary _RBC Care & [facility] Urea_nitrog unknown 31 unknown mg/dL _3094-0 unknow n unknown Clinic en_Mass_volu Primary me_in_Serum_ Care & or_Plasma [facility] Sodium_Mole unknown 136 unknown mmol/ _2951-2 unknow n unknown Clinic s_volume_in_ L Primary Serum_or_Pla Care & sma [facility] eosinophil_ unknown 0.0 10 unknown _285 unknown unknown Clinic count_blood 3/UL [facility] anion_gap_s unknown 9.0 unknown _279 unknown unknown Clinic joanne [facility] mean_platel unknown 11.8 unknown fL _2784 unknown unknown Clinic et_volume [facility] Magnesium_M unknown 2.3 unknown mg/dL _2601-3 unknow n unknown Clinic oles_volume_ Primary in_Serum_or_ Care & Plasma [facility] basophil_co unknown 0.0 10 unknown _2427 unknown unknown Clinic unt_blood 3/UL [facility] monocyte_co unknown 0.7 10 unknown _2422 unknown unknown Clinic unt_blood 3/UL [facility] lymphocyte_ unknown 1.0 10 unknown _2420 unknown unknown Clinic count_blood 3/UL [facility] neutrophil_ unknown 10.8 10 unknown _2418 unknow n unknown Clinic count_blood 3/UL [facility] Glucose_Mas unknown 233 unknown mg/dL _2345-7 unknow n unknown Clinic s_volume_in_ Primary Serum_or_Pla Care & sma Ancillary [facility] Creatinine_ unknown 0.7 unknown mg/dL _2160-0 unknow n unknown Clinic Mass_volume_ Primary in_Serum_or_ Care & Plasma [facility] Chloride_Mo unknown 93 unknown mmol/ _5-0 unknow n unknown Clinic les_volume_i L Primary n_Serum_or_P Care & lasma Ancillary [facility] carbon_diox unknown 34 unknown mmol/ _8-9 unknow n unknown Clinic ide_serum_to L Primary dale Care & Ancillary Services [facility] Calcium_Mol unknown 8.8 unknown mg/dL _1999-8 unknow n unknown Clinic es_volume_in Primary _Serum_or_Pl Care & asma Ancillary Services [facility] Anion_gap_4 unknown 9.0 unknown _1863-0 unknow n unknown Clinic _in_Serum_or Primary _Plasma Care & [facility] creatinine_ unknown 0.7 unknown mg/dL _18 unknown unknown Clinic serum [facility] mean_corpus unknown 30.6 unknown g/dL _17029 unknown unknown Clinic cular_hemogl Primary obin_concent Care & ration_rbc [facility] sodium_seru unknown 136 unknown mmol/ _159 unknown unknown Clinic m L [facility] chloride_se unknown 93 unknown mmol/ _13 unknown unknown Clinic rum L [facility] calcium_ser unknown 8.8 unknown mg/dL _11 unknown unknown Clinic um [facility] mean_corpus unknown 26.2 unknown pg _1031 unknown unknown Clinic cular_hemogl Primary obin_RBC Care & [facility] red_blood_c unknown 17.5 unknown % _1030 unknown unknown Clinic ell_distribu Primary tion_width Care & [facility]illary Services [facility] T unknown 12.6 X10 unknown WBC unknown u nknown Clinic 3/UL [facility] T unknown 17.5 unknown % RDW unknown [facility] T unknown 3.82 10 unknown RBC unknown un known Clinic 6/UL [facility] T unknown 179 10 unknown PLT unknown [facility] 3/UL [facility] NEUTROPHILS unknown 10.8 10 unknown NE_ unknow n unknown Clinic _AUTO_ 3/UL [facility] T unknown 10.8 10 unknown NEUT_AUTO_ unknown unknown Clinic 3/UL [facility] T unknown 136 unknown mmol/ NA [facility] L [facility] T unknown 11.8 unknown fL MPV unknown [facility] MONOCYTES_A unknown 0.7 10 unknown MO_ unknown unknown Clinic UTO_ 3/UL [facility] T unknown 0.7 10 unknown MONO_AUTO_ unknown unknown Clinic 3/UL [facility] T unknown 2.3 unknown mg/dL MG unknown [facility] T unknown 85.6 unknown fL MCV unknown [facility] T unknown 30.6 unknown g/dL MCHC unknown [facility] T unknown 26.2 unknown pg MCH unknown [facility] LYMPHOCYTES unknown 1.0 10 unknown LY_ unknown unknown Clinic _AUTO_ 3/UL [facility] T unknown 1.0 10 unknown LYMPH_AUTO_ unknown unknown Clinic 3/ [facility] T unknown 4.7 unknown meq/L K unknown [facility] T unknown 10.0 unknown g/dL HGB unknown [facility] T unknown 32.7 unknown % HCT unknown [facility] T unknown 233 unknown mg/dL GLU unknown [facility] T unknown 85 unknown mL/mi GFR_-_MDRD unknown unknown Clinic n [facility] GFR_-_MDRD unknown 85 unknown mL/mi GFR unknown unknown Clinic n [facility] T unknown 9.0 unknown GAP unknown [facility] EOSINOPHILS unknown 0.0 10 unknown EO_ unknown unknown Clinic _AUTO_ 3/UL [facility] T unknown 0.0 10 unknown EOS_AUTO_ unknown unknown Clinic 3/UL [facility] T unknown 0.7 unknown mg/dL CREAT unknown [facility] T unknown 34 unknown mmol/ CO2 unknown [facility] L [facility] T unknown 93 unknown mmol/ CL unknown [facility] L [facility] T unknown 8.8 unknown mg/dL CA unknown unk nown Clinic [facility] T unknown 31 unknown mg/dL BUN unknown unk nown Clinic [facility] BASOPHILS_A unknown 0.0 10 unknown BA_ unknown unknown Clinic UTO_ 3/UL [facility] T unknown 0.0 10 unknown BASO_AUTO_ unknown unknown Clinic 3/UL [facility] urea_nitrog unknown 36 unknown mg/dL _9 unknown unknown Clinic en_blood [facility] Erythrocyte unknown 3.96 10 unknown _789-8 unknow n unknown Clinic s_volume_in_ 6/UL Primary Blood_by_Aut Care & omated_count Ancillary Services [facility] Erythrocyte unknown 17.4 unknown % _788-0 unknown unknown Clinic _distributio Primary n_width_Rati Care & o_by_Automat Ancillary ed_count Services [facility] MCV_Entitic unknown 87.1 unknown fL _787-2 unknown unknown Clinic _volume_by_A Primary utomated_cou Care & nt Ancillary Services [facility] MCH_Entitic unknown 26.0 unknown pg _785-6 unknown unknown Clinic _mass_by_Aut Primary omated_count Care & Ancillary Services [facility] Platelets_v unknown 188 10 unknown _777-3 unknown unknown Clinic olume_in_Blo 3/UL Primary od_by_Automa Care & ted_count Ancillary Services [facility] Platelet_me unknown 11.6 unknown fL _776-5 unknown unknown Clinic an_volume_En Primary titic_volume Care & _in_Blood_by Ancillary _[facility] neutrophil_ unknown 10.9 10 unknown _752-6 unknow n unknown Clinic count_blood 3/UL Primary [facility] Services [facility] monocyte_co unknown 0.7 10 unknown _743-5 unknown unknown Clinic unt_blood 3/UL [facility] lymphocyte_ unknown 1.2 10 unknown _732-8 unknown unknown Clinic count_blood 3/UL [facility] Hemoglobin_ unknown 10.3 unknown g/dL _718-7 unknown unknown Clinic Mass_volume_ Primary in_Blood Care & Ancillary Services [facility] eosinophil_ unknown 0.1 10 unknown _712-0 unknown unknown Clinic count_blood 3/UL [facility] Basophils_v unknown 0.0 10 unknown _705-4 unknown unknown Clinic olume_in_Blo 3/UL Primary od_by_Manual Care & _count Ancillary Services [facility] leukocyte_c unknown 13.0 X10 unknown _68 unkno wn unknown Clinic ount_blood 3/UL [facility] erythrocyte unknown 3.96 10 unknown _67 unknow n unknown Clinic _RBC_count 6/UL [facility] Leukocytes_ unknown 13.0 X10 unknown _6690-2 unkn own unknown Clinic volume_in_Bl 3/UL Primary ood_by_Autom Care & ated_count [facility]illary [facility] Glomerular_ unknown 85 unknown mL/mi _66455 unknown unknown Clinic Filtration_r n Primary ate Care & [facility] platelet_co unknown 188 10 unknown _66 unknown unknown Clinic unt 3/UL [facility] hemoglobin_ unknown 10.3 unknown g/dL _65 unknown unknown Clinic blood [facility] hematocrit_ unknown 34.5 unknown % _64 unknown unknown Clinic blood [facility] potassium_b unknown 4.7 unknown meq/L _6298-4 unknow n unknown Clinic lood [facility] Glomerular_f unknown 85 unknown mL/mi _48642-3 unkno wn unknown Clinic iltration_ra n Primary te_1.73_sq_M Care & .predicted_a Ancillary mong_non-ida Services cks_Volume_R [facility] ate_Area_in_ Serum_Plasma _or_Blood_by _Creatinine- based_formul a_MDRD_ [facility] Hematocrit_ unknown 34.5 unknown % _4544-3 unknow n unknown Clinic Volume_Fract Primary ion_of_Blood Care & _by_Automate Ancillary d_count Services [facility] carbon_diox unknown 35 unknown mmol/ _3962 unknown unknown Clinic ide_serum_to L Primary dale Care & Ancillary [facility] blood_gluco unknown 234 unknown mg/dL _3565 unknown unknown Clinic se [facility] potassium_b unknown 4.7 unknown meq/L _3483 unknown unknown Clinic lood [facility] magnesium_s unknown 2.3 unknown mg/dL _32 unknown unknown Clinic joanne [facility] mean_corpus unknown 87.1 unknown fL _315 unknown unknown Clinic cular_volume Primary _RBC Care & [facility] Urea_nitrog unknown 36 unknown mg/dL _3094-0 unknow n unknown Clinic en_Mass_volu Primary me_in_Serum_ Care & or_Plasma [facility] Sodium_Mole unknown 137 unknown mmol/ _2951-2 unknow n unknown Clinic s_volume_in_ L Primary Serum_or_Pla Care & sma Ancillary [facility] eosinophil_ unknown 0.1 10 unknown _285 unknown unknown Clinic count_blood 3/UL [facility] anion_gap_s unknown 9.0 unknown _279 unknown unknown Clinic joanne [facility] mean_platel unknown 11.6 unknown fL _2784 unknown unknown Clinic et_volume [facility] Magnesium_M unknown 2.3 unknown mg/dL _2601-3 unknow n unknown Clinic oles_volume_ Primary in_Serum_or_ Care & Plasma [facility]illary [facility] basophil_co unknown 0.0 10 unknown _2427 unknown unknown Clinic unt_blood 3/UL [facility] monocyte_co unknown 0.7 10 unknown _2422 unknown unknown Clinic unt_blood 3/UL [facility] lymphocyte_ unknown 1.2 10 unknown _2420 unknown unknown Clinic count_blood 3/UL [facility] neutrophil_ unknown 10.9 10 unknown _2418 unknow n unknown Clinic count_blood 3/UL [facility] Glucose_Mas unknown 234 unknown mg/dL _2345-7 unknow n unknown Clinic s_volume_in_ Primary Serum_or_Pla Care & sma Ancillary Services [facility] Creatinine_ unknown 0.7 unknown mg/dL _2160-0 unknow n unknown Clinic Mass_volume_ Primary in_Serum_or_ Care & Plasma [facility] Chloride_Mo unknown 93 unknown mmol/ _5-0 unknow n unknown Clinic les_volume_i L Primary n_Serum_or_P Care & lasma Ancillary Services [facility] carbon_diox unknown 35 unknown mmol/ _8-9 unknow n unknown Clinic ide_serum_to L Primary dale Care & Ancillary [facility] Calcium_Mol unknown 8.9 unknown mg/dL _1999-8 unknow n unknown Clinic es_volume_in Primary _Serum_or_Pl Care & asma Ancillary Services [facility] Anion_gap_4 unknown 9.0 unknown _1863-0 unknow n unknown Clinic _in_Serum_or Primary _Plasma Care & [facility] creatinine_ unknown 0.7 unknown mg/dL _18 unknown unknown Clinic serum [facility] mean_corpus unknown 29.9 unknown g/dL _17029 unknown unknown Clinic cular_hemogl Primary obin_concent Care & ration_rbc [facility]illary [facility] sodium_seru unknown 137 unknown mmol/ _159 unknown unknown Clinic m L [facility] chloride_se unknown 93 unknown mmol/ _13 unknown unknown Clinic rum L [facility] calcium_ser unknown 8.9 unknown mg/dL _11 unknown unknown Clinic um [facility] mean_corpus unknown 26.0 unknown pg _1031 unknown unknown Clinic cular_hemogl Primary obin_RBC Care & [facility] red_blood_c unknown 17.4 unknown % _1030 unknown unknown Clinic ell_distribu Primary tion_width Care & Ancillary Services [facility] T unknown 13.0 X10 unknown WBC unknown u nknow Clinic 3/UL [facility] T unknown 17.4 unknown % RDW unknown [facility] T unknown 3.96 10 unknown RBC unknown un known Clinic 6/UL [facility] T unknown 188 10 unknown PLT unknown [facility] 3/UL [facility] NEUTROPHILS unknown 10.9 10 unknown NE_ unknow n unknown Clinic _AUTO_ 3/UL [facility] T unknown 10.9 10 unknown NEUT_AUTO_ unknown unknown Clinic 3/UL [facility] T unknown 137 unknown mmol/ NA unknown [facility] L [facility] T unknown 11.6 unknown fL MPV unknown [facility] MONOCYTES_A unknown 0.7 10 unknown MO_ unknown unknown Clinic UTO_ 3/UL [facility] T unknown 0.7 10 unknown MONO_AUTO_ unknown unknown Clinic 3/UL [facility] T unknown 2.3 unknown mg/dL MG unknown [facility] T unknown 87.1 unknown fL MCV unknown [facility] T unknown 29.9 unknown g/dL MCHC unknown [facility] T unknown 26.0 unknown pg MCH unknown [facility] LYMPHOCYTES unknown 1.2 10 unknown LY_ unknown unknown Clinic _AUTO_ 3/UL [facility] T unknown 1.2 10 unknown LYMPH_AUTO_ unknown unknown Clinic 3/UL [facility] T unknown 4.7 unknown meq/L K unknown [facility] T unknown 10.3 unknown g/dL HGB unknown [facility] T unknown 34.5 unknown % HCT unknown [facility] T unknown 234 unknown mg/dL GLU unknown [facility] T unknown 85 unknown mL/mi GFR_-_MDRD unknown unknown Clinic n [facility] GFR_-_MDRD unknown 85 unknown mL/mi GFR unknown unknown Clinic n [facility] T unknown 9.0 unknown GAP unknown [facility] EOSINOPHILS unknown 0.1 10 unknown EO_ unknown unknown Clinic _AUTO_ 3/UL [facility] T unknown 0.1 10 unknown EOS_AUTO_ unknown unknown Clinic 3/UL [facility] T unknown 0.7 unknown mg/dL CREAT unknown [facility] T unknown 35 unknown mmol/ CO2 unknown [facility] L [facility] T unknown 93 unknown mmol/ CL unknown [facility] L [facility] T unknown 8.9 unknown mg/dL CA unknown [facility] T unknown 36 unknown mg/dL BUN unknown [facility] BASOPHILS_A unknown 0.0 10 unknown BA_ unknown unknown Clinic UTO_ 3/UL [facility] T unknown 0.0 10 unknown BASO_AUTO_ unknown unknown Clinic 3/UL [facility] urea_nitrog unknown 37 unknown mg/dL _9 unknown unknown Clinic en_blood [facility] Erythrocyte unknown 3.97 10 unknown _789-8 unknow n unknown Clinic s_volume_in_ 6/UL Primary Blood_by_Aut Care & omated_count Ancillary Services [facility] Erythrocyte unknown 17.2 unknown % _788-0 unknown unknown Clinic _distributio Primary n_width_Rati Care & o_by_Automat Ancillary ed_count Services [facility] MCV_Entitic unknown 87.7 unknown fL _787-2 unknown unknown Clinic _volume_by_A Primary utomated_cou Care & nt Ancillary Services [facility] MCH_Entitic unknown 25.4 unknown pg _785-6 unknown unknown Clinic _mass_by_Aut Primary omated_count Care & Ancillary Services [facility] Platelets_v unknown 196 10 unknown _777-3 unknown unknown Clinic olume_in_Blo 3/UL Primary od_by_Automa Care & ted_count Ancillary Services [facility] Platelet_me unknown 11.0 unknown fL _776-5 unknown unknown Clinic an_volume_En Primary titic_volume Care & _in_Blood_by Ancillary _[facility] neutrophil_ unknown 12.0 10 unknown _752-6 unknow n unknown Clinic count_blood 3/UL [facility] monocyte_co unknown 0.6 10 unknown _743-5 unknown unknown Clinic unt_blood 3/UL [facility] lymphocyte_ unknown 0.8 10 unknown _732-8 unknown unknown Clinic count_blood 3/UL [facility] Hemoglobin_ unknown 10.1 unknown g/dL _718-7 unknown unknown Clinic Mass_volume_ Primary in_Blood Care & Ancillary Services [facility] eosinophil_ unknown 0.0 10 unknown _712-0 unknown unknown Clinic count_blood 3/UL [facility] Basophils_v unknown 0.0 10 unknown _705-4 unknown unknown Clinic olume_in_Blo 3/UL Primary od_by_Manual Care & _count Ancillary Services [facility] leukocyte_c unknown 13.4 X10 unknown _68 unkno wn unknown Clinic ount_blood 3/UL [facility] erythrocyte unknown 3.97 10 unknown _67 unknow n unknown Clinic _RBC_count 6/UL [facility] Leukocytes_ unknown 13.4 X10 unknown _6690-2 unkn own unknown Clinic volume_in_Bl 3/UL Primary ood_by_Autom Care & ated_count Ancillary Services [facility] Glomerular_ unknown 85 unknown mL/mi _66455 unknown unknown Clinic Filtration_r n Primary ate Care & Ancillary Services [facility] platelet_co unknown 196 10 unknown _66 unknown unknown Clinic unt 3/UL [facility] hemoglobin_ unknown 10.1 unknown g/dL _65 unknown unknown Clinic blood [facility] hematocrit_ unknown 34.8 unknown % _64 unknown unknown Clinic blood [facility] potassium_b unknown 4.8 unknown meq/L _6298-4 unknow n unknown Clinic lood [facility] Glomerular_f unknown 85 unknown mL/mi _48642-3 unkno wn unknown Clinic iltration_ra n Primary te_1.73_sq_M Care & .predicted_a Ancillary mong_non-ida Services cks_Volume_R [facility] ate_Area_in_ Serum_Plasma _or_Blood_by _Creatinine- based_formul a_MDRD_ [facility] Hematocrit_ unknown 34.8 unknown % _4544-3 unknow n unknown Clinic Volume_Fract Primary ion_of_Blood Care & _by_Automate Ancillary d_count Services [facility] carbon_diox unknown 33 unknown mmol/ _3962 unknown unknown Clinic ide_serum_to L Primary dale Care & Ancillary Services [facility] blood_gluco unknown 246 unknown mg/dL _3565 unknown unknown Clinic se [facility] potassium_b unknown 4.8 unknown meq/L _3483 unknown unknown Clinic lood [facility] magnesium_s unknown 2.3 unknown mg/dL _32 unknown unknown Clinic joanne [facility] mean_corpus unknown 87.7 unknown fL _315 unknown unknown Clinic cular_volume Primary _RBC Care & Ancillary Services [facility] Urea_nitrog unknown 37 unknown mg/dL _3094-0 unknow n unknown Clinic en_Mass_volu Primary me_in_Serum_ Care & or_Plasma Ancillary Services [facility] Sodium_Mole unknown 136 unknown mmol/ _2951-2 unknow n unknown Clinic s_volume_in_ L Primary Serum_or_Pla Care & sma Ancillary Services [facility] eosinophil_ unknown 0.0 10 unknown _285 unknown unknown Clinic count_blood 3/UL [facility] anion_gap_s unknown 9.0 unknown _279 unknown unknown Clinic joanne [facility] mean_platel unknown 11.0 unknown fL _2784 unknown unknown Clinic et_volume Primary [facility] Magnesium_M unknown 2.3 unknown mg/dL _2601-3 unknow n unknown Clinic oles_volume_ Primary in_Serum_or_ Care & Plasma Ancillary Services [facility] basophil_co unknown 0.0 10 unknown _2427 unknown unknown Clinic unt_blood 3/UL [facility] monocyte_co unknown 0.6 10 unknown _2422 unknown unknown Clinic unt_blood 3/UL [facility] lymphocyte_ unknown 0.8 10 unknown _2420 unknown unknown Clinic count_blood 3/UL [facility] neutrophil_ unknown 12.0 10 unknown _2418 unknow n unknown Clinic count_blood 3/UL [facility] Glucose_Mas unknown 246 unknown mg/dL _2345-7 unknow n unknown Clinic s_volume_in_ Primary Serum_or_Pla Care & sma Ancillary Services [facility] Creatinine_ unknown 0.7 unknown mg/dL _2160-0 unknow n unknown Clinic Mass_volume_ Primary in_Serum_or_ Care & Plasma Ancillary Services [facility] Chloride_Mo unknown 94 unknown mmol/ _2074-0 unknow n unknown Clinic les_volume_i L Primary n_Serum_or_P Care & lasma Ancillary Services [facility] carbon_diox unknown 33 unknown mmol/ _2027- unknow n unknown Clinic ide_serum_to L Primary dale Care & Ancillary Services [facility] Calcium_Mol unknown 8.8 unknown mg/dL _1999- unknow n unknown Clinic es_volume_in Primary _Serum_or_Pl Care & asma Ancillary Services [facility] Anion_gap_4 unknown 9.0 unknown _3-0 unknow n unknown Clinic _in_Serum_or Primary _Plasma Care & Ancillary Services [facility] creatinine_ unknown 0.7 unknown mg/dL _18 unknown unknown Clinic serum [facility] mean_corpus unknown 29.0 unknown g/dL _17029 unknown unknown Clinic cular_hemogl Primary obin_concent Care & ration_rbc Ancillary Services [facility] sodium_seru unknown 136 unknown mmol/ _159 unknown unknown Clinic m L [facility] chloride_se unknown 94 unknown mmol/ _13 unknown unknown Clinic rum L [facility] calcium_ser unknown 8.8 unknown mg/dL _11 unknown unknown Clinic um [facility] mean_corpus unknown 25.4 unknown pg _1031 unknown unknown Clinic cular_hemogl Primary obin_RBC Care & Ancillary Services [facility] red_blood_c unknown 17.2 unknown % _1030 unknown unknown Clinic ell_distribu Primary tion_width Care & Ancillary Services [facility] T unknown 13.4 X10 unknown WBC unknown u nknown Clinic 3/UL [facility] T unknown 17.2 unknown % RDW unknown [facility] T unknown 3.97 10 unknown RBC unknown un known Clinic 6/UL [facility] T unknown 196 10 unknown PLT unknown [facility] Clinic 3/UL [facility] NEUTROPHILS unknown 12.0 10 unknown NE_ unknow n unknown Clinic _AUTO_ 3/UL [facility] T unknown 12.0 10 unknown NEUT_AUTO_ unknown unknown Clinic 3/UL [facility] T unknown 136 unknown mmol/ NA unknown [facility] Clinic L [facility] Anc[facility] T unknown 11.0 unknown fL MPV unknown [facility] MONOCYTES_A unknown 0.6 10 unknown MO_ unknown unknown Clinic UTO_ 3/UL [facility] T unknown 0.6 10 unknown MONO_AUTO_ unknown unknown Clinic 3/UL [facility] T unknown 2.3 unknown mg/dL MG unknown [facility] T unknown 87.7 unknown fL MCV unknown [facility] T unknown 29.0 unknown g/dL MCHC unknown [facility] T unknown 25.4 unknown pg MCH unknown [facility] LYMPHOCYTES unknown 0.8 10 unknown LY_ unknown unknown Clinic _AUTO_ 3/UL [facility] T unknown 0.8 10 unknown LYMPH_AUTO_ unknown unknown Clinic 3/UL [facility] T unknown 4.8 unknown meq/L K unknown [facility] T unknown 10.1 unknown g/dL HGB unknown [facility] T unknown 34.8 unknown % HCT unknown [facility] T unknown 246 unknown mg/dL GLU unknown [facility] T unknown 85 unknown mL/mi GFR_-_MDRD unknown unknown Clinic n [facility] GFR_-_MDRD unknown 85 unknown mL/mi GFR unknown unknown Clinic n [facility] T unknown 9.0 unknown GAP unknown [facility] EOSINOPHILS unknown 0.0 10 unknown EO_ unknown unknown Clinic _AUTO_ 3/UL [facility]illary Services [facility] T unknown 0.0 10 unknown EOS_AUTO_ unknown unknown Clinic 3/UL [facility] T unknown 0.7 unknown mg/dL CREAT unknown [facility] T unknown 33 unknown mmol/ CO2 unknown [facility] L [facility] T unknown 94 unknown mmol/ CL unknown [facility] L [facility] T unknown 8.8 unknown mg/dL CA unknown [facility] T unknown 37 unknown mg/dL BUN unknown [facility] BASOPHILS_A unknown 0.0 10 unknown BA_ unknown unknown Clinic UTO_ 3/UL [facility] T unknown 0.0 10 unknown BASO_AUTO_ unknown unknown Clinic 3/UL [facility] urea_nitrog unknown 37 unknown mg/dL _9 unknown unknown Clinic en_blood [facility] Services [facility] Erythrocyte unknown 4.01 10 unknown _789-8 unknow n unknown Clinic s_volume_in_ 6/UL Primary Blood_by_Aut Care & omated_count Ancillary Services [facility] Erythrocyte unknown 17.0 unknown % _788-0 unknown unknown Clinic _distributio Primary n_width_Rati Care & o_by_Automat Ancillary ed_count Services [facility] MCV_Entitic unknown 86.0 unknown fL _787-2 unknown unknown Clinic _volume_by_A Primary utomated_cou Care & nt Ancillary Services [facility] MCH_Entitic unknown 26.2 unknown pg _785-6 unknown unknown Clinic _mass_by_Aut Primary omated_count Care & Ancillary Services [facility] Platelets_v unknown 205 10 unknown _777-3 unknown unknown Clinic olume_in_Blo 3/UL Primary od_by_Automa Care & ted_count Ancillary Services [facility] Platelet_me unknown 11.0 unknown fL _776-5 unknown unknown Clinic an_volume_En Primary titic_volume Care & _in_Blood_by Ancillary _[facility] neutrophil_ unknown 10.8 10 unknown _752-6 unknow n unknown Clinic count_blood 3/UL Primary Care [facility] Ancillary Services [facility] monocyte_co unknown 0.8 10 unknown _743-5 unknown unknown Clinic unt_blood 3/UL Primary Care [facility] Ancillary Services [facility] lymphocyte_ unknown 1.0 10 unknown _732-8 unknown unknown Clinic count_blood 3/UL Primary Care [facility] Anc[facility] Services [facility] Hemoglobin_ unknown 10.5 unknown g/dL _718-7 unknown unknown Clinic Mass_volume_ Primary in_Blood Care & Ancillary Services [facility] eosinophil_ unknown 0.0 10 unknown _712-0 unknown unknown Clinic count_blood 3/UL Primary Care & Ancillary Services [facility] Basophils_v unknown 0.0 10 unknown _705-4 unknown unknown Clinic olume_in_Blo 3/UL Primary od_by_Manual Care & _count Ancillary Services [facility] leukocyte_c unknown 12.8 X10 unknown _68 unkno wn unknown Clinic ount_blood 3/UL Primary Care [facility] Ancillary Services [facility] erythrocyte unknown 4.01 10 unknown _67 unknow n unknown Clinic _RBC_count 6/UL Primary Care [facility] Ancillary Services [facility] Leukocytes_ unknown 12.8 X10 unknown _6690-2 unkn own unknown Clinic volume_in_Bl 3/UL Primary ood_by_Autom Care & ated_count Ancillary Services [facility] Glomerular_ unknown 85 unknown mL/mi _66455 unknown unknown Clinic Filtration_r n Primary ate Care & Ancillary Services [facility] platelet_co unknown 205 10 unknown _66 unknown unknown Clinic unt 3/UL Primary Care & Ancillary Services [facility] hemoglobin_ unknown 10.5 unknown g/dL _65 unknown unknown Clinic blood [facility] hematocrit_ unknown 34.5 unknown % _64 unknown unknown Clinic blood [facility] potassium_b unknown 4.5 unknown meq/L _6298-4 unknow n unknown Clinic lood Primary [facility] & Ancillary Services [facility] Glomerular_f unknown 85 unknown mL/mi _48642-3 unkno wn unknown Clinic iltration_ra n Primary te_1.73_sq_M Care & .predicted_a Ancillary mong_non-ida Services cks_Volume_R [facility] ate_Area_in_ Serum_Plasma _or_Blood_by _Creatinine- based_formul a_MDRD_ Walk-In Hematocrit_ unknown 34.5 unknown % _4544-3 unknow n unknown Clinic Volume_Fract Primary ion_of_Blood Care & _by_Automate Ancillary d_count Services [facility] carbon_diox unknown 32 unknown mmol/ _3962 unknown unknown Clinic ide_serum_to L Primary dale Care & Ancillary Services [facility] blood_gluco unknown 235 unknown mg/dL _3565 unknown unknown [facility] se [facility] potassium_b unknown 4.5 unknown meq/L _3483 unknown unknown Clinic lood [facility] magnesium_s unknown 2.6 unknown mg/dL _32 unknown unknown Clinic joanne [facility] mean_corpus unknown 86.0 unknown fL _315 unknown unknown Clinic cular_volume Primary _RBC [facility] Urea_nitrog unknown 37 unknown mg/dL _3094-0 unknow n unknown Clinic en_Mass_volu Primary me_in_Serum_ Care & or_Plasma [facility] Sodium_Mole unknown 139 unknown mmol/ _2951-2 unknow n unknown Clinic s_volume_in_ L Primary Serum_or_Pla Care & sma [facility] eosinophil_ unknown 0.0 10 unknown _285 unknown unknown Clinic count_blood 3/UL [facility] anion_gap_s unknown 11.0 unknown _279 unknown unknown Clinic joanne [facility] mean_platel unknown 11.0 unknown fL _2784 unknown unknown Clinic et_volume [facility] Magnesium_M unknown 2.6 unknown mg/dL _2601-3 unknow n unknown Clinic oles_volume_ Primary in_Serum_or_ Care & Plasma [facility] basophil_co unknown 0.0 10 unknown _2427 unknown unknown Clinic unt_blood 3/UL [facility] monocyte_co unknown 0.8 10 unknown _2422 unknown unknown Clinic unt_blood 3/UL [facility] lymphocyte_ unknown 1.0 10 unknown _2420 unknown unknown Clinic count_blood 3/UL [facility] neutrophil_ unknown 10.8 10 unknown _2418 unknow n unknown Clinic count_blood 3/UL [facility] Glucose_Mas unknown 235 unknown mg/dL _2345-7 unknow n unknown Clinic s_volume_in_ Primary Serum_or_Pla Care & sma [facility] Creatinine_ unknown 0.7 unknown mg/dL _2160-0 unknow n unknown Clinic Mass_volume_ Primary in_Serum_or_ Care & Plasma [facility] Chloride_Mo unknown 96 unknown mmol/ _2075-0 unknow n unknown Clinic les_volume_i L Primary n_Serum_or_P Care & lasma [facility] carbon_diox unknown 32 unknown mmol/ _8-9 unknow n unknown Clinic ide_serum_to L Primary dale [facility] Calcium_Mol unknown 9.0 unknown mg/dL _1999-8 unknow n unknown Clinic es_volume_in Primary _Serum_or_Pl Care & asma [facility] Anion_gap_4 unknown 11.0 unknown _1863-0 unknow n unknown Clinic _in_Serum_or Primary _Plasma [facility] creatinine_ unknown 0.7 unknown mg/dL _18 unknown unknown Clinic serum [facility] mean_corpus unknown 30.4 unknown g/dL _17029 unknown unknown Clinic cular_hemogl Primary obin_concent Care & ration_rbc [facility] sodium_seru unknown 139 unknown mmol/ _159 unknown unknown Clinic m L [facility] chloride_se unknown 96 unknown mmol/ _13 unknown unknown Clinic rum L [facility] calcium_ser unknown 9.0 unknown mg/dL _11 unknown unknown Clinic um [facility] mean_corpus unknown 26.2 unknown pg _1031 unknown unknown Clinic cular_hemogl Primary obin_RBC [facility] red_blood_c unknown 17.0 unknown % _1030 unknown unknown Clinic ell_distribu Primary tion_width [facility] T unknown 12.8 X10 unknown WBC unknown u nknow Clinic 3/UL [facility] T unknown 17.0 unknown % RDW unknown [facility] T unknown 4.01 10 unknown RBC unknown un known Clinic 6/UL [facility] T unknown 205 10 unknown PLT unknown [facility] 3/UL [facility] NEUTROPHILS unknown 10.8 10 unknown NE_ unknow n unknown Clinic _AUTO_ 3/UL [facility] T unknown 10.8 10 unknown NEUT_AUTO_ unknown unknown Clinic 3/UL [facility] T unknown 139 unknown mmol/ NA unknown [facility] L [facility] T unknown 11.0 unknown fL MPV unknown [facility] MONOCYTES_A unknown 0.8 10 unknown MO_ unknown unknown Clinic UTO_ 3/UL [facility] T unknown 0.8 10 unknown MONO_AUTO_ unknown unknown Clinic 3/UL [facility] T unknown 2.6 unknown mg/dL MG unknown [facility] T unknown 86.0 unknown fL MCV unknown unk nown Clinic [facility] T unknown 30.4 unknown g/dL MCHC unknown [facility] T unknown 26.2 unknown pg MCH unknown [facility] LYMPHOCYTES unknown 1.0 10 unknown LY_ unknown unknown Clinic _AUTO_ 3/UL [facility] T unknown 1.0 10 unknown LYMPH_AUTO_ unknown unknown Clinic 3/UL [facility] T unknown 4.5 unknown meq/L K unknown [facility] T unknown 10.5 unknown g/dL HGB unknown [facility] T unknown 34.5 unknown % HCT unknown [facility] T unknown 235 unknown mg/dL GLU unknown [facility] T unknown 85 unknown mL/mi GFR_-_MDRD unknown unknown Clinic n [facility] GFR_-_MDRD unknown 85 unknown mL/mi GFR unknown unknown Clinic n [facility] T unknown 11.0 unknown GAP unknown [facility] EOSINOPHILS unknown 0.0 10 unknown EO_ unknown unknown Clinic _AUTO_ 3/UL [facility] T unknown 0.0 10 unknown EOS_AUTO_ unknown unknown Clinic 3/UL [facility] T unknown 0.7 unknown mg/dL CREAT unknown [facility] T unknown 32 unknown mmol/ CO2 unknown [facility] L [facility] T unknown 96 unknown mmol/ CL unknown [facility] L [facility] T unknown 9.0 unknown mg/dL CA unknown [facility] T unknown 37 unknown mg/dL BUN unknown [facility] BASOPHILS_A unknown 0.0 10 unknown BA_ unknown unknown Clinic UTO_ 3/UL [facility] T unknown 0.0 10 unknown BASO_AUTO_ unknown unknown Clinic 3/UL [facility] platelet_co unknown NORMAL unknown _9317-9 unknow n unknown Clinic unt_estimate (130-450,0 Primary 00) [facility] urea_nitrog unknown 43 unknown mg/dL _9 unknown unknown Clinic en_blood [facility] Erythrocyte unknown 3.88 10 unknown _789-8 unknow n unknown Clinic s_volume_in_ 6/UL Primary Blood_by_Aut Care & omated_count [facility] Erythrocyte unknown 16.7 unknown % _788-0 unknown unknown Clinic _distributio Primary n_width_Rati Care & o_by_Automat Ancillary ed_count Services [facility] MCV_Entitic unknown 88.9 unknown fL _787-2 unknown unknown Clinic _volume_by_A Primary utomated_cou Care & nt [facility] MCH_Entitic unknown 25.5 unknown pg _785-6 unknown unknown Clinic _mass_by_Aut Primary omated_count [facility] Platelets_v unknown 232 10 unknown _777-3 unknown unknown Clinic olume_in_Blo 3/UL Primary od_by_Automa Care & ted_count [facility] Platelet_me unknown 11.1 unknown fL _776-5 unknown unknown Clinic an_volume_En Primary titic_volume Care & _in_Blood_by Ancillary _[facility] neutrophil_ unknown 9.6 10 unknown _752-6 unknown unknown Clinic count_blood 3/UL [facility] monocyte_co unknown 0.6 10 unknown _743-5 unknown unknown Clinic unt_blood 3/UL [facility] lymphocyte_ unknown 0.7 10 unknown _732-8 unknown unknown Clinic count_blood 3/UL [facility] Hemoglobin_ unknown 9.9 unknown g/dL _718-7 unknown unknown Clinic Mass_volume_ Primary in_Blood [facility] eosinophil_ unknown 0.0 10 unknown _712-0 unknown unknown Clinic count_blood 3/UL [facility] Basophils_v unknown 0.0 10 unknown _705-4 unknown unknown Clinic olume_in_Blo 3/UL Primary od_by_Manual Care & _count [facility]illary [facility] leukocyte_c unknown 11.1 X10 unknown _68 unkno wn unknown Clinic ount_blood 3/UL [facility] erythrocyte unknown 3.88 10 unknown _67 unknow n unknown Clinic _RBC_count 6/UL [facility] Leukocytes_ unknown 11.1 X10 unknown _6690-2 unkn own unknown Clinic volume_in_Bl 3/UL Primary ood_by_Autom Care & ated_count [facility] Glomerular_ unknown 85 unknown mL/mi _66455 unknown unknown Clinic Filtration_r n Primary ate [facility] platelet_co unknown 232 10 unknown _66 unknown unknown Clinic unt 3/UL [facility] hemoglobin_ unknown 9.9 unknown g/dL _65 unknown unknown Clinic blood [facility] hematocrit_ unknown 34.5 unknown % _64 unknown unknown Clinic blood [facility] potassium_b unknown 4.6 unknown meq/L _6298-4 unknow n unknown Clinic lood [facility] Glomerular_f unknown 85 unknown mL/mi _48642-3 unkno wn unknown Clinic iltration_ra n Primary te_1.73_sq_M Care & .predicted_a Ancillary mong_non-ida Services cks_Volume_R [facility] ate_Area_in_ Serum_Plasma _or_Blood_by _Creatinine- based_formul a_MDRD_ [facility] Hemoglobin_ unknown 7.0 unknown % _4548-4 unknow n unknown Clinic A1c_Hemoglob Primary in_total_in_ Care & Blood_-_ [facility] Hematocrit_ unknown 34.5 unknown % _4544-3 unknow n unknown Clinic Volume_Fract Primary ion_of_Blood Care & _by_Automate Ancillary d_count Services [facility] carbon_diox unknown 36 unknown mmol/ _3962 unknown unknown Clinic ide_serum_to L Primary dale [facility] blood_gluco unknown 231 unknown mg/dL _3565 unknown unknown Clinic se [facility] potassium_b unknown 4.6 unknown meq/L _3483 unknown unknown Clinic lood [facility] magnesium_s unknown 2.5 unknown mg/dL _32 unknown unknown Clinic joanne [facility] mean_corpus unknown 88.9 unknown fL _315 unknown unknown Clinic cular_volume Primary _RBC [facility] platelet_co unknown NORMAL unknown _3109 unknown unknown Clinic unt_estimate (130-450,0 Primary 00) [facility] Urea_nitrog unknown 43 unknown mg/dL _3094-0 unknow n unknown Clinic en_Mass_volu Primary me_in_Serum_ Care & or_Plasma [facility] Sodium_Mole unknown 140 unknown mmol/ _2951-2 unknow n unknown Clinic s_volume_in_ L Primary Serum_or_Pla Care & sma [facility]illary [facility] eosinophil_ unknown 0.0 10 unknown _285 unknown unknown Clinic count_blood 3/UL [facility] hemoglobin_ unknown 7.0 unknown % _28 unknown unknown Clinic A1C_blood_as Primary _of_total_he Care & moglobin [facility]illary [facility] anion_gap_s unknown 8.0 unknown _279 unknown unknown Clinic joanne [facility] mean_platel unknown 11.1 unknown fL _2784 unknown unknown Clinic et_volume [facility] Glucose_mea unknown 154 unknown mg/dL _27353-2 unkno wn unknown Clinic n_value_Mass Primary _volume_in_B Care & lood_Estimat Ancillary ed_from_glyc Services ated_hemoglo [facility] Magnesium_M unknown 2.5 unknown mg/dL _2601-3 unknow n unknown Clinic oles_volume_ Primary in_Serum_or_ Care & Plasma [facility] basophil_co unknown 0.0 10 unknown _2427 unknown unknown Clinic unt_blood 3/UL [facility] monocyte_co unknown 0.6 10 unknown _2422 unknown unknown Clinic unt_blood 3/UL [facility] lymphocyte_ unknown 0.7 10 unknown _2420 unknown unknown Clinic count_blood 3/UL [facility] neutrophil_ unknown 9.6 10 unknown _2418 unknown unknown Clinic count_blood 3/UL [facility] Glucose_Mas unknown 231 unknown mg/dL _2345-7 unknow n unknown Clinic s_volume_in_ Primary Serum_or_Pla Care & sma Ancillary [facility] Creatinine_ unknown 0.7 unknown mg/dL _2160-0 unknow n unknown Clinic Mass_volume_ Primary in_Serum_or_ Care & Plasma [facility] Chloride_Mo unknown 96 unknown mmol/ _5-0 unknow n unknown Clinic les_volume_i L Primary n_Serum_or_P Care & lasma Ancillary Services [facility] carbon_diox unknown 36 unknown mmol/ _8-9 unknow n unknown Clinic ide_serum_to L Primary dale [facility] Calcium_Mol unknown 8.8 unknown mg/dL _1999-8 unknow n unknown Clinic es_volume_in Primary _Serum_or_Pl Care & asma Ancillary [facility] Anion_gap_4 unknown 8.0 unknown _1863-0 unknow n unknown Clinic _in_Serum_or Primary _Plasma [facility] Estimated_A unknown 154 unknown mg/dL _180195 unknow n unknown Clinic verage_Gluco Primary se [facility] creatinine_ unknown 0.7 unknown mg/dL _18 unknown unknown Clinic serum [facility] mean_corpus unknown 28.7 unknown g/dL _17029 unknown unknown Clinic cular_hemogl Primary obin_concent Care & ration_rbc [facility]illary [facility] sodium_seru unknown 140 unknown mmol/ _159 unknown unknown Clinic m L [facility] chloride_se unknown 96 unknown mmol/ _13 unknown unknown Clinic rum L [facility] calcium_ser unknown 8.8 unknown mg/dL _11 unknown unknown Clinic um [facility] mean_corpus unknown 25.5 unknown pg _1031 unknown unknown Clinic cular_hemogl Primary obin_RBC [facility] red_blood_c unknown 16.7 unknown % _1030 unknown unknown Clinic ell_distribu Primary tion_width [facility] Slide_Inter unknown Indicated unknown _102992 unk nown unknown Clinic pretation [facility] T unknown 11.1 X10 unknown WBC unknown u nknown Clinic 3/UL [facility] T unknown Indicated unknown SLIDE_REVIE unkn own unknown Clinic W_ [facility] SLIDE_REVIE unknown Indicated unknown SLIDEREV_ u nknown unknown Clinic W_ [facility] T unknown 16.7 unknown % [facility] T unknown 3.88 10 unknown RBC unknown un known Clinic 6/UL [facility] T unknown NORMAL unknown PLT_EST unknown un known Clinic (130-450,0 Primary 00) [facility] PLATELET_ES unknown NORMAL unknown PLTEST unknown unknown Clinic [facility]450[facility] Primary L 00) [facility] T unknown 232 10 unknown PLT unknown unk now Clinic 3/UL [facility] NEUTROPHILS unknown 9.6 10 unknown NE_ unknown unknown Clinic _AUTO_ 3/UL [facility] T unknown 9.6 10 unknown NEUT_AUTO_ unknown unknown Clinic 3/UL [facility] T unknown 140 unknown mmol/ NA [facility] L [facility] T unknown 11.1 unknown fL [facility] MONOCYTES_A unknown 0.6 10 unknown MO_ unknown unknown Clinic UTO_ 3/UL [facility] T unknown 0.6 10 unknown MONO_AUTO_ unknown unknown Clinic 3/UL [facility] T unknown 2.5 unknown mg/dL MG unknown [facility] T unknown 88.9 unknown fL MCV unknown [facility] MEAN_CORPUS unknown 88.9 unknown fL MCV unknown unknown Clinic CULAR_VOLUME [facility] T unknown 28.7 unknown g/dL MCHC unknown [facility] T unknown 25.5 unknown pg MCH unknown [facility] LYMPHOCYTES unknown 0.7 10 unknown LY_ unknown unknown Clinic _AUTO_ 3/UL [facility] T unknown 0.7 10 unknown LYMPH_AUTO_ unknown unknown Clinic 3/UL [facility] T unknown 4.6 unknown meq/L K unknown [facility] T unknown 9.9 unknown g/dL HGB unknown [facility] T unknown 34.5 unknown % HCT unknown [facility] T unknown 231 unknown mg/dL GLU unknown [facility] T unknown 85 unknown mL/mi GFR_-_MDRD unknown unknown Clinic n [facility] GFR_-_MDRD unknown 85 unknown mL/mi GFR unknown unknown Clinic n [facility] T unknown 8.0 unknown GAP unknown [facility] T unknown 154 unknown mg/dL EST.AVG.GLU unknown unknown Clinic C [facility] EOSINOPHILS unknown 0.0 10 unknown EO_ unknown unknown Clinic _AUTO_ 3/UL [facility] T unknown 0.0 10 unknown EOS_AUTO_ unknown unknown Clinic 3/UL [facility] ESTIMATED_A unknown 154 unknown mg/dL EAG unknown unknown Clinic VERAGE_GLUCO Primary SE [facility] T unknown 0.7 unknown mg/dL CREAT unknown [facility] T unknown 36 unknown mmol/ CO2 unknown [facility] L [facility] T unknown 96 unknown mmol/ CL unknown [facility] L [facility] T unknown 8.8 unknown mg/dL CA unknown [facility] T unknown 43 unknown mg/dL BUN unknown [facility] BASOPHILS_A unknown 0.0 10 unknown BA_ unknown unknown Clinic UTO_ 3/UL [facility] T unknown 0.0 10 unknown BASO_AUTO_ unknown unknown Clinic 3/UL [facility] T unknown 7.0 unknown % A1c_ unknown [facility] HEMOGLOBIN_ unknown 7.0 unknown % A1c unknown unknown Clinic A1c_ [facility] urea_nitrog unknown 49 unknown mg/dL _9 unknown unknown Clinic en_blood [facility] Erythrocyte unknown 3.99 10 unknown _789-8 unknow n unknown Clinic s_volume_in_ 6/UL Primary Blood_by_Aut Care & omated_count Ancillary Services [facility] Erythrocyte unknown 16.8 unknown % _788-0 unknown unknown Clinic _distributio Primary n_width_Rati Care & o_by_Automat Ancillary ed_count Services [facility] MCV_Entitic unknown 88.0 unknown fL _787-2 unknown unknown Clinic _volume_by_A Primary utomated_cou Care & nt [facility]illary Services [facility] MCH_Entitic unknown 25.6 unknown pg _785-6 unknown unknown Clinic _mass_by_Aut Primary omated_count Care & [facility]illary Services [facility] Platelets_v unknown 299 10 unknown _777-3 unknown unknown Clinic olume_in_Blo 3/UL Primary od_by_Automa Care & ted_count Ancillary Services [facility] Platelet_me unknown 10.7 unknown fL _776-5 unknown unknown Clinic an_volume_En Primary titic_volume Care & _in_Blood_by Ancillary _[facility] neutrophil_ unknown 9.6 10 unknown _752-6 unknown unknown Clinic count_blood 3/UL Primary [facility] monocyte_co unknown 0.7 10 unknown _743-5 unknown unknown Clinic unt_blood 3/UL Primary [facility] lymphocyte_ unknown 0.8 10 unknown _732-8 unknown unknown Clinic count_blood 3/UL [facility] Hemoglobin_ unknown 10.2 unknown g/dL _718-7 unknown unknown Clinic Mass_volume_ Primary in_Blood [facility] eosinophil_ unknown 0.0 10 unknown _712-0 unknown unknown Clinic count_blood 3/UL Primary [facility] Basophils_v unknown 0.0 10 unknown _705-4 unknown unknown Clinic olume_in_Blo 3/UL Primary od_by_Manual Care & _count Ancillary Services [facility] leukocyte_c unknown 11.3 X10 unknown _68 unkno wn unknown Clinic ount_blood 3/UL Primary [facility] erythrocyte unknown 3.99 10 unknown _67 unknow n unknown Clinic _RBC_count 6/UL Primary [facility] Leukocytes_ unknown 11.3 X10 unknown _6690-2 unkn own unknown Clinic volume_in_Bl 3/UL Primary ood_by_Autom Care & ated_count Ancillary Services [facility] Glomerular_ unknown 63 unknown mL/mi _66455 unknown unknown Clinic Filtration_r n Primary ate Care & [facility] platelet_co unknown 299 10 unknown _66 unknown unknown Clinic unt 3/UL Primary [facility] hemoglobin_ unknown 10.2 unknown g/dL _65 unknown unknown Clinic blood [facility] hematocrit_ unknown 35.1 unknown % _64 unknown unknown Clinic blood [facility] potassium_b unknown 4.2 unknown meq/L _6298-4 unknow n unknown Clinic lood [facility] Glomerular_f unknown 63 unknown mL/mi _48642-3 unkno wn unknown Clinic iltration_ra n Primary te_1.73_sq_M Care & .predicted_a Ancillary mong_non-ida Services cks_Volume_R [place] ate_Area_in_ Serum_Plasma _or_Blood_by _Creatinine- based_formul a_MDRD_ Walk-In Hematocrit_ unknown 35.1 unknown % _4544-3 unknow n unknown Clinic Volume_Fract Primary ion_of_Blood Care & _by_Automate Ancillary d_count Services [facility] carbon_diox unknown 34 unknown mmol/ _3962 unknown unknown Clinic ide_serum_to L Primary dale Care & Ancillary Services [place] [facility] blood_gluco unknown 269 unknown mg/dL _3565 unknown unknown Clinic se Primary Care & Ancillary Services [place] [facility] potassium_b unknown 4.2 unknown meq/L _3483 unknown unknown Clinic lood Primary [facility] Anc[facility] Services [place] [facility] mean_corpus unknown 88.0 unknown fL _315 unknown unknown Clinic cular_volume Primary _RBC Care & Ancillary Services [place] [facility] Urea_nitrog unknown 49 unknown mg/dL _3094-0 unknow n unknown Clinic en_Mass_volu Primary me_in_Serum_ Care & or_Plasma Ancillary Services [place] Sodium_Mole unknown 143 unknown mmol/ _2951-2 unknow n unknown Clinic s_volume_in_ L Primary Serum_or_Pla Care & sma Ancillary Services [place] [facility] eosinophil_ unknown 0.0 10 unknown _285 unknown unknown Clinic count_blood 3/UL Primary Care & Ancillary Services [place] [facility] anion_gap_s unknown 11.0 unknown _279 unknown unknown Clinic joanne Primary Care [facility] Ancillary Services [place] [facility] mean_platel unknown 10.7 unknown fL _2784 unknown unknown Clinic et_volume Primary Care & Ancillary Services [place] [facility] basophil_co unknown 0.0 10 unknown _2427 unknown unknown Clinic unt_blood 3/UL Primary Care & Ancillary Services [place] [facility] monocyte_co unknown 0.7 10 unknown _2422 unknown unknown Clinic unt_blood 3/UL Primary Care & Ancillary Services [place] [facility] lymphocyte_ unknown 0.8 10 unknown _2420 unknown unknown Clinic count_blood 3/UL Primary Care & Ancillary Services [place] [facility] neutrophil_ unknown 9.6 10 unknown _2418 unknown unknown Clinic count_blood 3/UL Primary [facility] Anc[facility] Services [place] [facility] B-type_natr unknown 328 unknown pg/mL _23708 unknown unknown Clinic iuretic_pept Primary ide_brain_na Care & triuretic_pe Ancillary ptide_ Services [place] [facility] Glucose_Mas unknown 269 unknown mg/dL _2345-7 unknow n unknown Clinic s_volume_in_ Primary Serum_or_Pla Care & sma Ancillary Services [place] [facility] Creatinine_ unknown 0.9 unknown mg/dL _2160-0 unknow n unknown Clinic Mass_volume_ Primary in_Serum_or_ Care & Plasma Ancillary Services [place] Chloride_Mo unknown 98 unknown mmol/ _2075-0 unknow n unknown Clinic les_volume_i L Primary n_Serum_or_P Care & lasma Ancillary Services [place] [facility] carbon_diox unknown 34 unknown mmol/ _8-9 unknow n unknown Clinic ide_serum_to L Primary dale Care & Ancillary Services [place] [facility] Calcium_Mol unknown 8.9 unknown mg/dL _2000-8 unknow n unknown Clinic es_volume_in Primary _Serum_or_Pl Care & asma Ancillary Services [place] Anion_gap_4 unknown 11.0 unknown _1863-0 unknow n unknown Clinic _in_Serum_or Primary _Plasma Care & Ancillary Services [place] creatinine_ unknown 0.9 unknown mg/dL _18 unknown unknown Clinic serum Primary Care & Ancillary Services [place] [facility] mean_corpus unknown 29.1 unknown g/dL _17029 unknown unknown Clinic cular_hemogl Primary obin_concent Care & ration_rbc Ancillary Services [place] [facility] sodium_seru unknown 143 unknown mmol/ _159 unknown unknown Clinic m L Primary Care & Ancillary Services [place] [facility] chloride_se unknown 98 unknown mmol/ _13 unknown unknown Clinic rum L Primary Care & Ancillary Services [place] [facility] calcium_ser unknown 8.9 unknown mg/dL _11 unknown unknown Clinic um Primary Care & Ancillary Services [place] [facility] mean_corpus unknown 25.6 unknown pg _1031 unknown unknown Clinic cular_hemogl Primary obin_RBC Care & Ancillary Services [place] [facility] red_blood_c unknown 16.8 unknown % _1030 unknown unknown Clinic ell_distribu Primary tion_width Care & Ancillary Services [facility] T unknown 11.3 X10 unknown WBC unknown u nknown Clinic 3/UL Primary Care & Ancillary Services [place] T unknown 16.8 unknown % RDW unknown [facility] Primary Care & Ancillary Services [place] [facility] RED_CELL_DI unknown 16.8 unknown % RDW unknown unknown Clinic STRIBUTION_W Primary IDTH Care & Ancillary Services [place] T unknown 3.99 10 unknown RBC unknown un known Clinic 6/UL Primary Care & Ancillary Services [place] T unknown 299 10 unknown PLT unknown [facility] Clinic 3/ Primary Care & Ancillary Services [place] [facility] NEUTROPHILS unknown 9.6 10 unknown NE_ unknown unknown Clinic _AUTO_ 3/ Primary Care & Ancillary Services [facility] T unknown 9.6 10 unknown NEUT_AUTO_ unknown unknown Clinic 3/ Primary Care & Ancillary Services [facility] T unknown 143 unknown mmol/ NA unknown [facility] L Primary Care & Ancillary Services [place] [facility] T unknown 10.7 unknown fL MPV unknown [facility] Primary Care & Ancillary Services [place] [facility] MONOCYTES_A unknown 0.7 10 unknown MO_ unknown unknown Clinic UTO_ 3/ Primary Care & Ancillary Services [facility] T unknown 0.7 10 unknown MONO_AUTO_ unknown unknown Clinic 3/ Primary Care & Ancillary Services [facility] T unknown 88.0 unknown fL MCV unknown [facility] Primary Care & Ancillary Services [place] [facility] T unknown 29.1 unknown g/dL MCHC unknown [facility] Primary Care & Ancillary Services [place] [facility] T unknown 25.6 unknown pg MCH unknown [facility] Primary Care & Ancillary Services [facility] [facility] LYMPHOCYTES unknown 0.8 10 unknown LY_ unknown unknown Clinic _AUTO_ 3/ Primary Care & Ancillary Services [facility] T unknown 0.8 10 unknown LYMPH_AUTO_ unknown unknown Clinic 3/ Primary Care & Ancillary Services [facility] T unknown 4.2 unknown meq/L K unknown [facility] Primary Care & Ancillary Services [place] [facility] T unknown 10.2 unknown g/dL HGB unknown [facility] Primary Care & Ancillary Services [place] [facility] T unknown 35.1 unknown % HCT unknown [facility] Primary Care & Ancillary Services [place] [facility] T unknown 269 unknown mg/dL GLU unknown [facility] Primary Care & Ancillary Services [place] [facility] T unknown 63 unknown mL/mi GFR_-_MDRD unknown unknown Clinic n Primary Care & Ancillary Services [place] [facility] GFR_-_MDRD unknown 63 unknown mL/mi GFR unknown unknown Clinic n Primary Care & Ancillary Services [facility] T unknown 11.0 unknown GAP unknown [facility] Primary Care & Ancillary Services [place] [facility] EOSINOPHILS unknown 0.0 10 unknown EO_ unknown unknown Clinic _AUTO_ 3/UL Primary Care & Ancillary Services [facility] T unknown 0.0 10 unknown EOS_AUTO_ unknown unknown Clinic 3/UL Primary Care & Ancillary Services [facility] T unknown 0.9 unknown mg/dL CREAT unknown [facility] Primary Care & Ancillary Services [place] [facility] T unknown 34 unknown mmol/ CO2 unknown [facility] L Primary Care & Ancillary Services [place] [facility] T unknown 98 unknown mmol/ CL unknown [facility] L Primary Care & Ancillary Services [facility] [facility] CHLORIDE unknown 98 unknown mmol/ [facility] [place] [facility] T unknown 8.9 unknown mg/dL CA unknown [facility] Primary Care & Ancillary Services [facility] T unknown 49 unknown mg/dL BUN unknown [facility] Primary Care & Ancillary Services [place] [facility] T unknown 328 unknown pg/mL BNP unknown [facility] Primary Care & Ancillary Services [place] [facility] BASOPHILS_A unknown 0.0 10 unknown BA_ unknown unknown Clinic UTO_ 3/UL Primary Care & Ancillary Services [facility] T unknown 0.0 10 unknown BASO_AUTO_ unknown unknown Clinic 3/UL Primary Care & Ancillary Services [place] [facility] urea_nitrog unknown 44 unknown mg/dL _9 unknown unknown Clinic en_blood Primary Care & Ancillary Services [place] [facility] Erythrocyte unknown 4.18 10 unknown _789-8 unknow n unknown Clinic s_volume_in_ 6/UL Primary Blood_by_Aut Care & omated_count Ancillary Services [place] [facility] Erythrocyte unknown 17.0 unknown % _788-0 unknown unknown Clinic _distributio Primary n_width_Rati Care & o_by_Automat Ancillary ed_count Services [place] [facility] MCV_Entitic unknown 84.2 unknown fL _787-2 unknown unknown Clinic _volume_by_A Primary utomated_cou Care & nt Ancillary Services [place] [facility] MCH_Entitic unknown 25.1 unknown pg _785-6 unknown unknown Clinic _mass_by_Aut Primary omated_count Care & Ancillary Services [place] [facility] Platelets_v unknown 340 10 unknown _777-3 unknown unknown Clinic olume_in_Blo 3/UL Primary od_by_Automa Care & ted_count Ancillary Services [place] [facility] Platelet_me unknown 10.4 unknown fL _776-5 unknown unknown Clinic an_volume_En Primary titic_volume Care & _in_Blood_by Ancillary _[facility] [place] Walk-In neutrophil_ unknown 9.8 10 unknown _752-6 unknown unknown Clinic count_blood 3/UL Primary Care & Ancillary Services [place] Walk-In monocyte_co unknown 0.5 10 unknown _743-5 unknown unknown Clinic unt_blood 3/UL Primary Care & Ancillary Services [place] Walk-In lymphocyte_ unknown 0.9 10 unknown _732-8 unknown unknown Clinic count_blood 3/UL Primary Care & Ancillary Services [place] Walk-In Hemoglobin_ unknown 10.5 unknown g/dL _718-7 unknown unknown Clinic Mass_volume_ Primary in_Blood Care & Ancillary Services [facility] Walk-In eosinophil_ unknown 0.0 10 unknown _712-0 unknown unknown Clinic count_blood 3/UL Primary Care & Ancillary Services [place] [facility]-In Basophils_v unknown 0.0 10 unknown _705-4 unknown unknown Clinic olume_in_Blo 3/UL Primary od_by_Manual Care & _count Ancillary Services [place] Walk-In leukocyte_c unknown 11.6 X10 unknown _68 unkno wn unknown Clinic ount_blood 3/UL Primary Care & Ancillary Services [place] Walk-In erythrocyte unknown 4.18 10 unknown _67 unknow n unknown Clinic _RBC_count 6/UL Primary Care & Ancillary Services [place] Walk-In Leukocytes_ unknown 11.6 X10 unknown _6690-2 unkn own unknown Clinic volume_in_Bl 3/UL Primary ood_by_Autom Care & ated_count Ancillary Services [place] [facility]-In Glomerular_ unknown 72 unknown mL/mi _66455 unknown unknown Clinic Filtration_r n Primary ate Care & Ancillary Services [place] [facility] platelet_co unknown 340 10 unknown _66 unknown unknown Clinic unt 3/UL Primary Care & Ancillary Services [place] [facility]-In hemoglobin_ unknown 10.5 unknown g/dL _65 unknown unknown Clinic blood Primary Care & Ancillary Services [place] Walk-In hematocrit_ unknown 35.2 unknown % _64 unknown unknown Clinic blood Primary Care & Ancillary Services [place] [facility] potassium_b unknown 4.0 unknown meq/L _6298-4 unknow n unknown Clinic lood Primary Care & Ancillary Services [place] [facility]-In potassium_b unknown 3.4 unknown meq/L _6298-4 unknow n unknown Clinic lood Primary Care & Ancillary Services [place] [facility] Glomerular_f unknown 72 unknown mL/mi _48642-3 unkno wn unknown Clinic iltration_ra n Primary te_1.73_sq_M Care & .predicted_a Ancillary mong_non-ida Services cks_Volume_R [place] ate_Area_in_ Serum_Plasma _or_Blood_by _Creatinine- based_formul a_MDRD_ Walk-In Hematocrit_ unknown 35.2 unknown % _4544-3 unknow n unknown Clinic Volume_Fract Primary ion_of_Blood Care & _by_Automate Ancillary d_count Services [place] [facility] carbon_diox unknown 33 unknown mmol/ _3962 unknown unknown Clinic ide_serum_to L Primary dale Care & Ancillary Services [place] [facility]-In blood_gluco unknown 215 unknown mg/dL _3565 unknown unknown Clinic se Primary Care & Ancillary Services [place] Walk-In potassium_b unknown 4.0 unknown meq/L _3483 unknown unknown Clinic lood Primary Care & Ancillary Services [place] Walk-In potassium_b unknown 3.4 unknown meq/L _3483 unknown unknown Clinic lood Primary Care & Ancillary Services [place] Walk-In magnesium_s unknown 2.6 unknown mg/dL _32 unknown unknown Clinic joanne Primary Care & Ancillary Services [place] Walk-In mean_corpus unknown 84.2 unknown fL _315 unknown unknown Clinic cular_volume Primary _RBC Care & Ancillary Services [place] [facility]-In Urea_nitrog unknown 44 unknown mg/dL _3094-0 unknow n unknown Clinic en_Mass_volu Primary me_in_Serum_ Care & or_Plasma Ancillary Services [place] Walk-In Sodium_Mole unknown 141 unknown mmol/ _2951-2 unknow n unknown Clinic s_volume_in_ L Primary Serum_or_Pla Care & sma Ancillary Services [place] Walk-In eosinophil_ unknown 0.0 10 unknown _285 unknown unknown Clinic count_blood 3/UL Primary Care & Ancillary Services [place] [facility]In anion_gap_s unknown 12.0 unknown _279 unknown unknown Clinic joanne Primary Care & Ancillary Services [place] [facility] mean_platel unknown 10.4 unknown fL _2784 unknown unknown Clinic et_volume Primary Care & Ancillary Services [place] [facility]-In Magnesium_M unknown 2.6 unknown mg/dL _2601-3 unknow n unknown Clinic oles_volume_ Primary in_Serum_or_ Care & Plasma Ancillary Services [facility] [facility]-In basophil_co unknown 0.0 10 unknown _2427 unknown unknown Clinic unt_blood 3/UL Primary Care & Ancillary Services [place] Walk-In monocyte_co unknown 0.5 10 unknown _2422 unknown unknown Clinic unt_blood 3/UL Primary Care & Ancillary Services [place] [facility] lymphocyte_ unknown 0.9 10 unknown _2420 unknown unknown Clinic count_blood 3/UL Primary Care & Ancillary Services [place] [facility] neutrophil_ unknown 9.8 10 unknown _2418 unknown unknown Clinic count_blood 3/UL Primary Care & Ancillary Services [place] Walk-In Glucose_Mas unknown 215 unknown mg/dL _2345-7 unknow n unknown Clinic s_volume_in_ Primary Serum_or_Pla Care & sma Ancillary Services [place] [facility]-In Creatinine_ unknown 0.8 unknown mg/dL _2160-0 unknow n unknown Clinic Mass_volume_ Primary in_Serum_or_ Care & Plasma Ancillary Services [place] [facility] Chloride_Mo unknown 96 unknown mmol/ _2075-0 unknow n unknown Clinic les_volume_i L Primary n_Serum_or_P Care & lasma Ancillary Services [place] [facility] carbon_diox unknown 33 unknown mmol/ _8-9 unknow n unknown Clinic ide_serum_to L Primary dale Care & Ancillary Services [place] [facility]-In Calcium_Mol unknown 8.7 unknown mg/dL _1999-8 unknow n unknown Clinic es_volume_in Primary _Serum_or_Pl Care & asma Ancillary Services [place] [facility] Anion_gap_4 unknown 12.0 unknown _1863-0 unknow n unknown Clinic _in_Serum_or Primary _Plasma Care & Ancillary Services [place] [facility] creatinine_ unknown 0.8 unknown mg/dL _18 unknown unknown Clinic serum Primary Care & Ancillary Services [facility] [facility] mean_corpus unknown 29.8 unknown g/dL _17029 unknown unknown Clinic cular_hemogl Primary obin_concent Care & ration_rbc Ancillary Services [place] [facility] sodium_seru unknown 141 unknown mmol/ _159 unknown unknown Clinic m L Primary Care & Ancillary Services [place] [facility] chloride_se unknown 96 unknown mmol/ _13 unknown unknown Clinic rum L Primary Care & Ancillary Services [place] [facility] calcium_ser unknown 8.7 unknown mg/dL _11 unknown unknown Clinic um Primary Care & Ancillary Services [place] [facility] mean_corpus unknown 25.1 unknown pg _1031 unknown unknown Clinic cular_hemogl Primary obin_RBC Care & Ancillary Services [place] [facility] red_blood_c unknown 17.0 unknown % _1030 unknown unknown Clinic ell_distribu Primary tion_width Care & Ancillary Services [facility] T unknown 11.6 X10 unknown WBC unknown u nknown Clinic 3/UL Primary Care & Ancillary Services [facility] T unknown 17.0 unknown % RDW unknown [facility] Primary Care & Ancillary Services [place] [facility] T unknown 4.18 10 unknown RBC unknown un known Clinic 6/UL Primary Care & Ancillary Services [place] [facility] T unknown 340 10 unknown PLT unknown [facility] 3/UL Primary Care & Ancillary Services [facility] [facility] NEUTROPHILS unknown 9.8 10 unknown NE_ unknown unknown Clinic _AUTO_ 3/UL Primary Care & Ancillary Services [facility] T unknown 9.8 10 unknown NEUT_AUTO_ unknown unknown Clinic 3/UL Primary Care & Ancillary Services [facility] T unknown 141 unknown mmol/ NA unknown [facility] L Primary Care & Ancillary Services [place] [facility] T unknown 10.4 unknown fL MPV unknown [facility] Primary Care & Ancillary Services [facility] [facility] MONOCYTES_A unknown 0.5 10 unknown MO_ unknown unknown Clinic UTO_ 3/UL Primary Care & Ancillary Services [facility] T unknown 0.5 10 unknown MONO_AUTO_ unknown unknown Clinic 3/UL Primary Care & Ancillary Services [facility] T unknown 2.6 unknown mg/dL MG unknown [facility] Primary Care & Ancillary Services [facility] [facility] T unknown 84.2 unknown fL MCV unknown [facility] Primary Care & Ancillary Services [place] [facility] T unknown 29.8 unknown g/dL MCHC unknown [facility] Primary Care & Ancillary Services [place] [facility] T unknown 25.1 unknown pg MCH unknown [facility] Primary Care & Ancillary Services [facility] LYMPHOCYTES unknown 0.9 10 unknown LY_ unknown unknown Clinic _AUTO_ 3/UL Primary Care & Ancillary Services [facility] T unknown 0.9 10 unknown LYMPH_AUTO_ unknown unknown Clinic 3/UL Primary Care & Ancillary Services [facility] T unknown 4.0 unknown meq/L K unknown [facility] Primary Care & Ancillary Services [place] [facility] T unknown 3.4 unknown meq/L K unknown [facility] Primary Care & Ancillary Services [facility] T unknown 10.5 unknown g/dL HGB unknown [facility] Primary Care & Ancillary Services [place] [facility] T unknown 35.2 unknown % HCT unknown [facility] Primary Care & Ancillary Services [place] [facility] T unknown 215 unknown mg/dL GLU unknown [facility] Primary Care & Ancillary Services [place] [facility] T unknown 72 unknown mL/mi GFR_-_MDRD unknown unknown Clinic n Primary Care & Ancillary Services [place] [facility] GFR_-_MDRD unknown 72 unknown mL/mi GFR unknown unknown Clinic n Primary Care & Ancillary Services [facility] T unknown 12.0 unknown GAP unknown [facility] Primary Care & Ancillary Services [facility] EOSINOPHILS unknown 0.0 10 unknown EO_ unknown unknown Clinic _AUTO_ 3/UL Primary Care & Ancillary Services [facility] T unknown 0.0 10 unknown EOS_AUTO_ unknown unknown Clinic 3/UL Primary Care & Ancillary Services [facility] T unknown 0.8 unknown mg/dL CREAT unknown [facility] Primary Care & Ancillary Services [place] [facility] T unknown 33 unknown mmol/ CO2 unknown [facility] L Primary Care & Ancillary Services [facility] [facility] T unknown 96 unknown mmol/ CL unknown [facility] L Primary Care & Ancillary Services [facility] T unknown 8.7 unknown mg/dL CA unknown unk nown Clinic Primary Care & Ancillary Services [facility] T unknown 44 unknown mg/dL [facility] Ancillary Services [facility] BASOPHILS_A unknown 0.0 10 unknown BA_ unknown unknown Clinic UTO_ 3/UL Primary Care & Ancillary Services [facility] T unknown 0.0 10 unknown BASO_AUTO_ unknown unknown Clinic 3/UL Primary Care & Ancillary Services [facility] urea_nitrog unknown 39 unknown mg/dL _9 unknown unknown Clinic en_blood Primary Care & Ancillary Services [facility] Erythrocyte unknown 4.04 10 unknown _789-8 unknow n unknown Clinic s_volume_in_ 6/UL Primary Blood_by_Aut Care & omated_count Ancillary Services [place] Erythrocyte unknown 16.2 unknown % _788-0 unknown unknown Clinic _distributio Primary n_width_Rati Care & o_by_Automat Ancillary ed_count Services [place] [facility] MCV_Entitic unknown 84.2 unknown fL _787-2 unknown unknown Clinic _volume_by_A Primary utomated_cou Care & nt Ancillary Services [place] [facility] MCH_Entitic unknown 25.2 unknown pg _785-6 unknown unknown Clinic _mass_by_Aut Primary omated_count Care & Ancillary Services [place] [facility] Platelets_v unknown 311 10 unknown _777-3 unknown unknown Clinic olume_in_Blo 3/UL Primary od_by_Automa Care & ted_count Ancillary Services [place] [facility] Platelet_me unknown 9.5 unknown fL _776-5 unknown unknown Clinic an_volume_En Primary titic_volume Care & _in_Blood_by Ancillary _[facility]-In neutrophil_ unknown 7.9 10 unknown _752-6 unknown unknown Clinic count_blood 3/UL Primary Care & Ancillary Services [facility] monocyte_co unknown 0.6 10 unknown _743-5 unknown unknown Clinic unt_blood 3/UL Primary Care & Ancillary Services [facility] lymphocyte_ unknown 0.9 10 unknown _732-8 unknown unknown Clinic count_blood 3/UL Primary Care & Ancillary Services [facility] Hemoglobin_ unknown 10.2 unknown g/dL _718-7 unknown unknown Clinic Mass_volume_ Primary in_Blood Care & Ancillary Services [facility]-In eosinophil_ unknown 0.0 10 unknown _712-0 unknown unknown Clinic count_blood 3/UL Primary Care & Ancillary Services [place] [facility] Basophils_v unknown 0.0 10 unknown _705-4 unknown unknown Clinic olume_in_Blo 3/UL Primary od_by_Manual Care & _count Ancillary Services [place] [facility]-In leukocyte_c unknown 9.6 X10 unknown _68 unknow n unknown Clinic ount_blood 3/UL Primary Care & Ancillary Services [facility] erythrocyte unknown 4.04 10 unknown _67 unknow n unknown Clinic _RBC_count 6/UL Primary Care & Ancillary Services [place] [facility] Leukocytes_ unknown 9.6 X10 unknown _6690-2 unkno wn unknown Clinic volume_in_Bl 3/UL Primary ood_by_Autom Care & ated_count Ancillary Services [place] Glomerular_ unknown 56 unknown mL/mi _66455 unknown unknown Clinic Filtration_r n Primary ate Care & Ancillary Services [place] [facility] platelet_co unknown 311 10 unknown _66 unknown unknown Clinic unt 3/UL Primary Care & Ancillary Services [place] [facility] hemoglobin_ unknown 10.2 unknown g/dL _65 unknown unknown Clinic blood Primary Care & Ancillary Services [facility] hematocrit_ unknown 34.0 unknown % _64 unknown unknown Clinic blood Primary Care & Ancillary Services [facility] potassium_b unknown 3.9 unknown meq/L _6298-4 unknow n unknown Clinic lood Primary Care & Ancillary Services [place] Glomerular_f unknown 56 unknown mL/mi _48642-3 unkno wn unknown Clinic iltration_ra n Primary te_1.73_sq_M Care & .predicted_a Ancillary mong_non-ida Services cks_Volume_R [place] ate_Area_in_ Serum_Plasma _or_Blood_by _Creatinine- based_formul a_MDRD_ Walk-In Hematocrit_ unknown 34.0 unknown % _4544-3 unknow n unknown Clinic Volume_Fract Primary ion_of_Blood Care & _by_Automate Ancillary d_count Services [place] carbon_diox unknown 32 unknown mmol/ _3962 unknown unknown Clinic ide_serum_to L Primary dale Care & Ancillary Services [place] [facility] blood_gluco unknown 238 unknown mg/dL _3565 unknown unknown Clinic se Primary Care & Ancillary Services [place] [facility] potassium_b unknown 3.9 unknown meq/L _3483 unknown unknown Clinic lood Primary Care & Ancillary Services [facility] mean_corpus unknown 84.2 unknown fL _315 unknown unknown Clinic cular_volume Primary _RBC Care & Ancillary Services [place] Urea_nitrog unknown 39 unknown mg/dL _3094-0 unknow n unknown Clinic en_Mass_volu Primary me_in_Serum_ Care & or_Plasma Ancillary Services [facility] Sodium_Mole unknown 141 unknown mmol/ _2951-2 unknow n unknown Clinic s_volume_in_ L Primary Serum_or_Pla Care & sma Ancillary Services [place] Walk-In eosinophil_ unknown 0.0 10 unknown _285 unknown unknown Clinic count_blood 3/UL [facility] anion_gap_s unknown 13.0 unknown _279 unknown unknown Clinic joanne [facility] mean_platel unknown 9.5 unknown fL _2784 unknown unknown Clinic et_volume [facility] basophil_co unknown 0.0 10 unknown _2427 unknown unknown Clinic unt_blood 3/UL [facility] monocyte_co unknown 0.6 10 unknown _2422 unknown unknown Clinic unt_blood 3/UL [facility] lymphocyte_ unknown 0.9 10 unknown _2420 unknown unknown Clinic count_blood 3/UL [facility] neutrophil_ unknown 7.9 10 unknown _2418 unknown unknown Clinic count_blood 3/UL [facility] Glucose_Mas unknown 238 unknown mg/dL _2345-7 unknow n unknown Clinic s_volume_in_ Primary Serum_or_Pla Care & sma [facility] Creatinine_ unknown 1.0 unknown mg/dL _2160-0 unknow n unknown Clinic Mass_volume_ Primary in_Serum_or_ Care & Plasma [facility] Chloride_Mo unknown 96 unknown mmol/ _2075-0 unknow n unknown Clinic les_volume_i L Primary n_Serum_or_P Care & lasma [facility] carbon_diox unknown 32 unknown mmol/ _2028-9 unknow n unknown Clinic ide_serum_to L Primary dale [facility] Calcium_Mol unknown 8.8 unknown mg/dL _1999-8 unknow n unknown Clinic es_volume_in Primary _Serum_or_Pl Care & asma [facility] Anion_gap_4 unknown 13.0 unknown _1863-0 unknow n unknown Clinic _in_Serum_or Primary _Plasma [facility] creatinine_ unknown 1.0 unknown mg/dL _18 unknown unknown Clinic serum [facility] mean_corpus unknown 30.0 unknown g/dL _17029 unknown unknown Clinic cular_hemogl Primary obin_concent Care & ration_rbc [facility] sodium_seru unknown 141 unknown mmol/ _159 unknown unknown Clinic m L [facility] chloride_se unknown 96 unknown mmol/ _13 unknown unknown Clinic rum L [facility] calcium_ser unknown 8.8 unknown mg/dL _11 unknown unknown Clinic um [facility] mean_corpus unknown 25.2 unknown pg _1031 unknown unknown Clinic cular_hemogl Primary obin_RBC [facility] red_blood_c unknown 16.2 unknown % _1030 unknown unknown Clinic ell_distribu Primary tion_width [facility] T unknown 9.6 X10 unknown WBC unknown un known Clinic 3/UL [facility] T unknown 16.2 unknown % RDW unknown unk [facility] T unknown 4.04 10 unknown RBC unknown un known Clinic 6/UL [facility] T unknown 311 10 unknown PLT unknown unk now Clinic 3/UL [facility] NEUTROPHILS unknown 7.9 10 unknown NE_ unknown unknown Clinic _AUTO_ 3/UL [facility] T unknown 7.9 10 unknown NEUT_AUTO_ unknown unknown Clinic 3/UL [facility] T unknown 141 unknown mmol/ NA unknown formerly [facility] Clinic L [facility] T unknown 9.5 unknown fL MPV unknown [facility] MONOCYTES_A unknown 0.6 10 unknown MO_ unknown unknown Clinic UTO_ 3/UL [facility] T unknown 0.6 10 unknown MONO_AUTO_ unknown unknown Clinic 3/UL [facility] T unknown 84.2 unknown fL MCV unknown [facility] T unknown 30.0 unknown g/dL MCHC unknown [facility] T unknown 25.2 unknown pg MCH unknown [facility] LYMPHOCYTES unknown 0.9 10 unknown LY_ unknown unknown Clinic _AUTO_ 3/UL [facility] T unknown 0.9 10 unknown LYMPH_AUTO_ unknown unknown Clinic 3/UL [facility] T unknown 3.9 unknown meq/L K unknown [facility] T unknown 10.2 unknown g/dL HGB unknown [facility] T unknown 34.0 unknown % HCT unknown [facility] T unknown 238 unknown mg/dL GLU unknown [facility] T unknown 56 unknown mL/mi GFR_-_MDRD unknown unknown Clinic n [facility] GFR_-_MDRD unknown 56 unknown mL/mi GFR unknown unknown Clinic n [facility] T unknown 13.0 unknown GAP unknown [facility] EOSINOPHILS unknown 0.0 10 unknown EO_ unknown unknown Clinic _AUTO_ 3/UL [facility] T unknown 0.0 10 unknown EOS_AUTO_ unknown unknown Clinic 3/UL [facility] T unknown 1.0 unknown mg/dL CREAT unknown [facility] T unknown 32 unknown mmol/ CO2 unknown unk [facility] L [facility] T unknown 96 unknown mmol/ CL unknown [facility] L [facility] T unknown 8.8 unknown mg/dL CA unknown [facility] T unknown 39 unknown mg/dL BUN unknown [facility] BASOPHILS_A unknown 0.0 10 unknown BA_ unknown unknown Clinic UTO_ 3/UL [facility] T unknown 0.0 10 unknown BASO_AUTO_ unknown unknown Clinic 3/UL [facility] urea_nitrog unknown 29 unknown mg/dL _9 unknown unknown Clinic en_blood [facility] Erythrocyte unknown 4.10 10 unknown _789-8 unknow n unknown Clinic s_volume_in_ 6/UL Primary Blood_by_Aut Care & omated_count [facility] Erythrocyte unknown 15.7 unknown % _788-0 unknown unknown Clinic _distributio Primary n_width_Rati Care & o_by_Automat Ancillary ed_count Services [facility] MCV_Entitic unknown 87.6 unknown fL _787-2 unknown unknown Clinic _volume_by_A Primary utomated_cou Care & nt [facility]illary [facility] MCH_Entitic unknown 25.6 unknown pg _785-6 unknown unknown Clinic _mass_by_Aut Primary omated_count Care & [facility]illary [facility] Platelets_v unknown 361 10 unknown _777-3 unknown unknown Clinic olume_in_Blo 3/UL Primary od_by_Automa Care & ted_count [facility]illary [facility] Platelet_me unknown 9.5 unknown fL _776-5 unknown unknown Clinic an_volume_En Primary titic_volume Care & _in_Blood_by Ancillary _[facility] neutrophil_ unknown 9.7 10 unknown _752-6 unknown unknown Clinic count_blood 3/UL [facility] monocyte_co unknown 0.6 10 unknown _743-5 unknown unknown Clinic unt_blood 3/UL [facility] lymphocyte_ unknown 1.0 10 unknown _732-8 unknown unknown Clinic count_blood 3/UL [facility] Hemoglobin_ unknown 10.5 unknown g/dL _718-7 unknown unknown Clinic Mass_volume_ Primary in_Blood [facility] eosinophil_ unknown 0.0 10 unknown _712-0 unknown unknown Clinic count_blood 3/UL [facility] Basophils_v unknown 0.0 10 unknown _705-4 unknown unknown Clinic olume_in_Blo 3/UL Primary od_by_Manual Care & _count [facility]illary [facility] leukocyte_c unknown 11.5 X10 unknown _68 unkno wn unknown Clinic ount_blood 3/UL [facility] erythrocyte unknown 4.10 10 unknown _67 unknow n unknown Clinic _RBC_count 6/UL [facility] Leukocytes_ unknown 11.5 X10 unknown _6690-2 unkn own unknown Clinic volume_in_Bl 3/UL Primary ood_by_Autom Care & ated_count [facility] Glomerular_ unknown 63 unknown mL/mi _66455 unknown unknown Clinic Filtration_r n Primary ate [facility] platelet_co unknown 361 10 unknown _66 unknown unknown Clinic unt 3/UL [facility] hemoglobin_ unknown 10.5 unknown g/dL _65 unknown unknown Clinic blood [facility] hematocrit_ unknown 35.9 unknown % _64 unknown unknown Clinic blood [facility] potassium_b unknown 4.1 unknown meq/L _6298-4 unknow n unknown Clinic lood [facility] Glomerular_f unknown 63 unknown mL/mi _48642-3 unkno wn unknown Clinic iltration_ra n Primary te_1.73_sq_M Care & .predicted_a Ancillary mong_non-ida Services cks_Volume_R [facility] ate_Area_in_ Serum_Plasma _or_Blood_by _Creatinine- based_formul a_MDRD_ [facility] Hematocrit_ unknown 35.9 unknown % _4544-3 unknow n unknown Clinic Volume_Fract Primary ion_of_Blood Care & _by_Automate Ancillary d_count Services [facility] triglycerid unknown 342 unknown mg/dL _44 unknown unknown Clinic e_serum_fast Primary ing [facility] carbon_diox unknown 35 unknown mmol/ _3962 unknown unknown Clinic ide_serum_to L Primary dale [facility] & [facility] blood_gluco unknown 196 unknown mg/dL _3565 unknown unknown Clinic se [facility] potassium_b unknown 4.1 unknown meq/L _3483 unknown unknown Clinic lood [facility] mean_corpus unknown 87.6 unknown fL _315 unknown unknown Clinic cular_volume Primary _RBC [facility] Urea_nitrog unknown 29 unknown mg/dL _3094-0 unknow n unknown Clinic en_Mass_volu Primary me_in_Serum_ Care & or_Plasma [facility] Sodium_Mole unknown 141 unknown mmol/ _2951-2 unknow n unknown Clinic s_volume_in_ L Primary Serum_or_Pla Care & sma Ancillary [facility] eosinophil_ unknown 0.0 10 unknown _285 unknown unknown Clinic count_blood 3/UL [facility] anion_gap_s unknown 12.0 unknown _279 unknown unknown Clinic joanne [facility] mean_platel unknown 9.5 unknown fL _2784 unknown unknown Clinic et_volume [facility] Triglycerid unknown 342 unknown mg/dL _2571-8 unknow n unknown Clinic e_Mass_volum Primary e_in_Serum_o Care & r_Plasma_-_m Ancillary g_dL Services [facility] basophil_co unknown 0.0 10 unknown _2427 unknown unknown Clinic unt_blood 3/UL [facility] monocyte_co unknown 0.6 10 unknown _2422 unknown unknown Clinic unt_blood 3/UL [facility] lymphocyte_ unknown 1.0 10 unknown _2420 unknown unknown Clinic count_blood 3/UL [facility] neutrophil_ unknown 9.7 10 unknown _2418 unknown unknown Clinic count_blood 3/UL [facility] Glucose_Mas unknown 196 unknown mg/dL _2345-7 unknow n unknown Clinic s_volume_in_ Primary Serum_or_Pla Care & sma [facility]illary [facility] Creatinine_ unknown 0.9 unknown mg/dL _2160-0 unknow n unknown Clinic Mass_volume_ Primary in_Serum_or_ Care & Plasma [facility]illary [facility] Chloride_Mo unknown 94 unknown mmol/ _5-0 unknow n unknown Clinic les_volume_i L Primary n_Serum_or_P Care & lasma [facility]illary [facility] carbon_diox unknown 35 unknown mmol/ _8-9 unknow n unknown Clinic ide_serum_to L Primary dale Care & [facility] Calcium_Mol unknown 8.8 unknown mg/dL _1999-8 unknow n unknown Clinic es_volume_in Primary _Serum_or_Pl Care & asma Ancillary [facility] Anion_gap_4 unknown 12.0 unknown _1863-0 unknow n unknown Clinic _in_Serum_or Primary _Plasma [facility] creatinine_ unknown 0.9 unknown mg/dL _18 unknown unknown Clinic serum [facility] mean_corpus unknown 29.2 unknown g/dL _17029 unknown unknown Clinic cular_hemogl Primary obin_concent Care & ration_rbc [facility]illary [facility] sodium_seru unknown 141 unknown mmol/ _159 unknown unknown Clinic m L [facility] chloride_se unknown 94 unknown mmol/ _13 unknown unknown Clinic rum L [facility] calcium_ser unknown 8.8 unknown mg/dL _11 unknown unknown Clinic um [facility] mean_corpus unknown 25.6 unknown pg _1031 unknown unknown Clinic cular_hemogl Primary obin_RBC [facility] red_blood_c unknown 15.7 unknown % _1030 unknown unknown Clinic ell_distribu Primary tion_width Care & [facility]illary [facility] T unknown 11.5 X10 unknown WBC unknown u nknown Clinic 3/UL [facility] T unknown 342 unknown mg/dL TRIG unknown [facility] T unknown 15.7 unknown % RDW unknown [facility] T unknown 4.10 10 unknown RBC unknown un known Clinic 6/UL [facility] T unknown 361 10 unknown PLT unknown formerly [facility] Clinic 3/UL [facility] NEUTROPHILS unknown 9.7 10 unknown NE_ unknown unknown Clinic _AUTO_ 3/UL [facility] T unknown 9.7 10 unknown NEUT_AUTO_ unknown unknown Clinic 3/UL [facility] T unknown 141 unknown mmol/ NA unknown [facility] L [facility] T unknown 9.5 unknown fL MPV unknown [facility] MONOCYTES_A unknown 0.6 10 unknown MO_ unknown unknown Clinic UTO_ 3/UL [facility] T unknown 0.6 10 unknown MONO_AUTO_ unknown unknown Clinic 3/UL [facility] T unknown 87.6 unknown fL MCV unknown [facility] T unknown 29.2 unknown g/dL MCHC unknown [facility] T unknown 25.6 unknown pg MCH unknown [facility] LYMPHOCYTES unknown 1.0 10 unknown LY_ unknown unknown Clinic _AUTO_ 3/UL [facility] T unknown 1.0 10 unknown LYMPH_AUTO_ unknown unknown Clinic 3/ [facility] T unknown 4.1 unknown meq/L K unknown [facility] T unknown 10.5 unknown g/dL HGB unknown [facility] T unknown 35.9 unknown % HCT unknown [facility] T unknown 196 unknown mg/dL GLU unknown [facility] T unknown 63 unknown mL/mi GFR_-_MDRD unknown unknown Clinic n [facility] GFR_-_MDRD unknown 63 unknown mL/mi GFR unknown unknown Clinic n [facility] T unknown 12.0 unknown GAP unknown [facility] EOSINOPHILS unknown 0.0 10 unknown EO_ unknown unknown Clinic _AUTO_ 3/UL [facility] T unknown 0.0 10 unknown EOS_AUTO_ unknown unknown Clinic 3/UL [facility] T unknown 0.9 unknown mg/dL CREAT unknown [facility] T unknown 35 unknown mmol/ CO2 unknown [facility] L [facility] T unknown 94 unknown mmol/ CL unknown [facility] L [facility] T unknown 8.8 unknown mg/dL CA unknown [facility] T unknown 29 unknown mg/dL BUN unknown [facility] BASOPHILS_A unknown 0.0 10 unknown BA_ unknown unknown Clinic UTO_ 3/UL [facility] T unknown 0.0 10 unknown BASO_AUTO_ unknown unknown Clinic 3/UL [facility] urea_nitrog unknown 33 unknown mg/dL _9 unknown unknown Clinic en_blood [facility] Erythrocyte unknown 3.73 10 unknown _789-8 unknow n unknown Clinic s_volume_in_ 6/UL Primary Blood_by_Aut Care & omated_count Ancillary Services [facility] Erythrocyte unknown 15.2 unknown % _788-0 unknown unknown Clinic _distributio Primary n_width_Rati Care & o_by_Automat Ancillary ed_count Services [facility] MCV_Entitic unknown 86.9 unknown fL _787-2 unknown unknown Clinic _volume_by_A Primary utomated_cou Care & nt Ancillary Services [facility] MCH_Entitic unknown 25.5 unknown pg _785-6 unknown unknown Clinic _mass_by_Aut Primary omated_count Care & Ancillary Services [facility] Platelets_v unknown 354 10 unknown _777-3 unknown unknown Clinic olume_in_Blo 3/UL Primary od_by_Automa Care & ted_count Ancillary Services [facility] Platelet_me unknown 10.0 unknown fL _776-5 unknown unknown Clinic an_volume_En Primary titic_volume Care & _in_Blood_by Ancillary _[facility] neutrophil_ unknown 9.7 10 unknown _752-6 unknown unknown Clinic count_blood 3/UL [facility] monocyte_co unknown 0.5 10 unknown _743-5 unknown unknown Clinic unt_blood 3/UL [facility] lymphocyte_ unknown 1.0 10 unknown _732-8 unknown unknown Clinic count_blood 3/UL [facility] Hemoglobin_ unknown 9.5 unknown g/dL _718-7 unknown unknown Clinic Mass_volume_ Primary in_Blood Care & Ancillary Services [facility] eosinophil_ unknown 0.0 10 unknown _712-0 unknown unknown Clinic count_blood 3/UL [facility] Basophils_v unknown 0.0 10 unknown _705-4 unknown unknown Clinic olume_in_Blo 3/UL Primary od_by_Manual Care & _count Ancillary Services [facility] leukocyte_c unknown 11.4 X10 unknown _68 unkno wn unknown Clinic ount_blood 3/UL [facility] erythrocyte unknown 3.73 10 unknown _67 unknow n unknown Clinic _RBC_count 6/UL [facility] Leukocytes_ unknown 11.4 X10 unknown _6690-2 unkn own unknown Clinic volume_in_Bl 3/UL Primary ood_by_Autom Care & ated_count Ancillary Services [facility] Glomerular_ unknown 50 unknown mL/mi _66455 unknown unknown Clinic Filtration_r n Primary ate Care & [facility] platelet_co unknown 354 10 unknown _66 unknown unknown Clinic unt 3/UL [facility] hemoglobin_ unknown 9.5 unknown g/dL _65 unknown unknown Clinic blood [facility] hematocrit_ unknown 32.4 unknown % _64 unknown unknown Clinic blood [facility] potassium_b unknown 4.0 unknown meq/L _6298-4 unknow n unknown Clinic lood [facility] Glomerular_f unknown 50 unknown mL/mi _48642-3 unkno wn unknown Clinic iltration_ra n Primary te_1.73_sq_M Care & .predicted_a Ancillary mong_non-ida Services cks_Volume_R [facility] ate_Area_in_ Serum_Plasma _or_Blood_by _Creatinine- based_formul a_MDRD_ Walk[facility]In Hematocrit_ unknown 32.4 unknown % _4544-3 unknow n unknown Clinic Volume_Fract Primary ion_of_Blood Care & _by_Automate Ancillary d_count Services [facility] carbon_diox unknown 37 unknown mmol/ _3962 unknown unknown Clinic ide_serum_to L Primary dale Care & Ancillary Services [facility] blood_gluco unknown 183 unknown mg/dL _3565 unknown unknown Clinic se [facility] potassium_b unknown 4.0 unknown meq/L _3483 unknown unknown Clinic lood [facility] mean_corpus unknown 86.9 unknown fL _315 unknown unknown Clinic cular_volume Primary _RBC Care & Ancillary Services [facility] Urea_nitrog unknown 33 unknown mg/dL _3094-0 unknow n unknown Clinic en_Mass_volu Primary me_in_Serum_ Care & or_Plasma Ancillary Services [facility] Sodium_Mole unknown 144 unknown mmol/ _2951-2 unknow n unknown Clinic s_volume_in_ L Primary Serum_or_Pla Care & sma Ancillary Services [facility] eosinophil_ unknown 0.0 10 unknown _285 unknown unknown Clinic count_blood 3/UL [facility] anion_gap_s unknown 11.0 unknown _279 unknown unknown Clinic joanne [facility] mean_platel unknown 10.0 unknown fL _2784 unknown unknown Clinic et_volume Primary [facility] Services [facility] basophil_co unknown 0.0 10 unknown _2427 unknown unknown Clinic unt_blood 3/UL [facility] monocyte_co unknown 0.5 10 unknown _2422 unknown unknown Clinic unt_blood 3/UL [facility] lymphocyte_ unknown 1.0 10 unknown _2420 unknown unknown Clinic count_blood 3/UL [facility] neutrophil_ unknown 9.7 10 unknown _2418 unknown unknown Clinic count_blood 3/UL [facility] Glucose_Mas unknown 183 unknown mg/dL _2345-7 unknow n unknown Clinic s_volume_in_ Primary Serum_or_Pla Care & sma Ancillary Services [facility] Creatinine_ unknown 1.1 unknown mg/dL _2160-0 unknow n unknown Clinic Mass_volume_ Primary in_Serum_or_ Care & Plasma Ancillary Services [facility] Chloride_Mo unknown 96 unknown mmol/ _5-0 unknow n unknown Clinic les_volume_i L Primary n_Serum_or_P Care & lasma Ancillary Services [facility] carbon_diox unknown 37 unknown mmol/ _8-9 unknow n unknown Clinic ide_serum_to L Primary dale Care & Ancillary Services [facility] Calcium_Mol unknown 8.8 unknown mg/dL _1999-8 unknow n unknown Clinic es_volume_in Primary _Serum_or_Pl Care & asma Ancillary Services [facility] Anion_gap_4 unknown 11.0 unknown _1863-0 unknow n unknown Clinic _in_Serum_or Primary _Plasma Care & Ancillary Services [facility] creatinine_ unknown 1.1 unknown mg/dL _18 unknown unknown Clinic serum [facility]illary Services [facility] mean_corpus unknown 29.3 unknown g/dL _17029 unknown unknown Clinic cular_hemogl Primary obin_concent Care & ration_rbc Ancillary Services [facility] sodium_seru unknown 144 unknown mmol/ _159 unknown unknown Clinic m L [facility] Walk-In chloride_se unknown 96 unknown mmol/ _13 unknown unknown Clinic rum L [facility] calcium_ser unknown 8.8 unknown mg/dL _11 unknown unknown Clinic um [facility] mean_corpus unknown 25.5 unknown pg _1031 unknown unknown Clinic cular_hemogl Primary obin_RBC [facility] red_blood_c unknown 15.2 unknown % _1030 unknown unknown Clinic ell_distribu Primary tion_width Care & [facility] T unknown 11.4 X10 unknown WBC unknown u nknown Clinic 3/UL [facility] T unknown 15.2 unknown % RDW unknown [facility] [place] [facility] T unknown 3.73 10 unknown RBC unknown un known Clinic 6/UL [facility] [place] T unknown 354 10 unknown PLT unknown [facility] 3/UL [facility] [place] NEUTROPHILS unknown 9.7 10 unknown NE_ unknown unknown Clinic _AUTO_ 3/UL [facility] [place] T unknown 9.7 10 unknown NEUT_AUTO_ unknown unknown Clinic 3/UL [facility] [place] T unknown 144 unknown mmol/ NA unknown [facility] Clinic L [facility] [place] T unknown 10.0 unknown fL MPV unknown [facility] [place] [facility] MONOCYTES_A unknown 0.5 10 unknown MO_ unknown unknown Clinic UTO_ 3/UL [facility] [place] T unknown 0.5 10 unknown MONO_AUTO_ unknown unknown Clinic 3/UL [facility] [place] T unknown 86.9 unknown fL MCV unknown [facility] [place] [facility] T unknown 29.3 unknown g/dL MCHC unknown [facility] [place] [facility] T unknown 25.5 unknown pg MCH unknown [facility] [place] [facility] LYMPHOCYTES unknown 1.0 10 unknown LY_ unknown unknown Clinic _AUTO_ 3/UL [facility] T unknown 1.0 10 unknown LYMPH_AUTO_ unknown unknown Clinic 3/UL [facility] T unknown 4.0 unknown meq/L K unknown [facility] [place] [facility] T unknown 9.5 unknown g/dL HGB unknown [facility] [place] [facility] T unknown 32.4 unknown % HCT unknown [facility] [place] [facility] T unknown 183 unknown mg/dL GLU unknown [facility] [place] [facility] T unknown 50 unknown mL/mi GFR_-_MDRD unknown unknown Clinic n [facility] [place] GFR_-_MDRD unknown 50 unknown mL/mi GFR unknown unknown Clinic n [facility] T unknown 11.0 unknown GAP unknown [facility] [place] [facility] EOSINOPHILS unknown 0.0 10 unknown EO_ unknown unknown Clinic _AUTO_ 3/UL [facility] [place] T unknown 0.0 10 unknown EOS_AUTO_ unknown unknown Clinic 3/UL [facility] T unknown 1.1 unknown mg/dL CREAT unknown [facility] [place] [facility] T unknown 37 unknown mmol/ CO2 unknown [facility] L [facility] [place] T unknown 96 unknown mmol/ CL unknown [facility] L [facility] [place] T unknown 8.8 unknown mg/dL CA unknown [facility] [place] [facility] T unknown 33 unknown mg/dL BUN unknown [facility] [place] [facility] BASOPHILS_A unknown 0.0 10 unknown BA_ unknown unknown Clinic UTO_ 3/UL [facility] T unknown 0.0 10 unknown BASO_AUTO_ unknown unknown Clinic 3/UL [facility] [place]In urea_nitrog unknown 38 unknown mg/dL _9 unknown unknown Clinic en_blood [facility] Erythrocyte unknown 3.68 10 unknown _789-8 unknow n unknown Clinic s_volume_in_ 6/UL Primary Blood_by_Aut Care & omated_count Ancillary Services [facility] Erythrocyte unknown 15.1 unknown % _788-0 unknown unknown Clinic _distributio Primary n_width_Rati Care & o_by_Automat Ancillary ed_count Services [facility] MCV_Entitic unknown 87.2 unknown fL _787-2 unknown unknown Clinic _volume_by_A Primary utomated_cou Care & nt Ancillary Services [place] MCH_Entitic unknown 25.5 unknown pg _785-6 unknown unknown Clinic _mass_by_Aut Primary omated_count Care & [facility]illary Services [place] [facility] Platelets_v unknown 367 10 unknown _777-3 unknown unknown Clinic olume_in_Blo 3/UL Primary od_by_Automa Care & ted_count Ancillary Services [place] Platelet_me unknown 9.9 unknown fL _776-5 unknown unknown Clinic an_volume_En Primary titic_volume Care & _in_Blood_by Ancillary _[facility]-In neutrophil_ unknown 8.8 10 unknown _752-6 unknown unknown Clinic count_blood 3/UL [facility] [place] Walk-In monocyte_co unknown 0.9 10 unknown _743-5 unknown unknown Clinic unt_blood 3/UL [facility] [place] Walk-In lymphocyte_ unknown 1.5 10 unknown _732-8 unknown unknown Clinic count_blood 3/UL [facility] [place]-In Hemoglobin_ unknown 9.4 unknown g/dL _718-7 unknown unknown Clinic Mass_volume_ Primary in_Blood [facility] [place] Walk-In eosinophil_ unknown 0.0 10 unknown _712-0 unknown unknown Clinic count_blood 3/UL [facility] [place] Walk-In Basophils_v unknown 0.0 10 unknown _705-4 unknown unknown Clinic olume_in_Blo 3/UL Primary od_by_Manual Care & _count Ancillary Services [place] Walk-In leukocyte_c unknown 11.6 X10 unknown _68 unkno wn unknown Clinic ount_blood 3/UL [facility] [place] Walk-In erythrocyte unknown 3.68 10 unknown _67 unknow n unknown Clinic _RBC_count 6/UL [facility] [place] Walk-In Leukocytes_ unknown 11.6 X10 unknown _6690-2 unkn own unknown Clinic volume_in_Bl 3/UL Primary ood_by_Autom Care & ated_count Ancillary Services [place]In Glomerular_ unknown 63 unknown mL/mi _66455 unknown unknown Clinic Filtration_r n Primary ate [facility] [place] Walk-In platelet_co unknown 367 10 unknown _66 unknown unknown Clinic unt 3/UL [facility] [place] Walk-In hemoglobin_ unknown 9.4 unknown g/dL _65 unknown unknown Clinic blood [facility] [place] Walk-In hematocrit_ unknown 32.1 unknown % _64 unknown unknown Clinic blood [facility] [place] Walk-In potassium_b unknown 3.7 unknown meq/L _6298-4 unknow n unknown Clinic lood [facility] [place] [facility]-In Glomerular_f unknown 63 unknown mL/mi _48642-3 unkno wn unknown Clinic iltration_ra n Primary te_1.73_sq_M Care & .predicted_a Ancillary mong_non-ida Services cks_Volume_R [place] ate_Area_in_ Serum_Plasma _or_Blood_by _Creatinine- based_formul a_MDRD_ Walk-In Hematocrit_ unknown 32.1 unknown % _4544-3 unknow n unknown Clinic Volume_Fract Primary ion_of_Blood Care & _by_Automate Ancillary d_count Services [facility] carbon_diox unknown 35 unknown mmol/ _3962 unknown unknown Clinic ide_serum_to L Primary dale [facility] & [facility] [place] [facility]-In blood_gluco unknown 184 unknown mg/dL _3565 unknown unknown Clinic se [facility] [place] Walk-In potassium_b unknown 3.7 unknown meq/L _3483 unknown unknown Clinic lood [facility] [place] Walk-In mean_corpus unknown 87.2 unknown fL _315 unknown unknown Clinic cular_volume Primary _RBC [facility] [place] [facility]-In Urea_nitrog unknown 38 unknown mg/dL _3094-0 unknow n unknown Clinic en_Mass_volu Primary me_in_Serum_ Care & or_Plasma [facility]illary [facility] [place]-In Sodium_Mole unknown 140 unknown mmol/ _2951-2 unknow n unknown Clinic s_volume_in_ L Primary Serum_or_Pla Care & sma Ancillary Services [place] Walk-In eosinophil_ unknown 0.0 10 unknown _285 unknown unknown Clinic count_blood 3/UL [facility] [place] [facility]-In anion_gap_s unknown 12.0 unknown _279 unknown unknown Clinic joanne [facility] [place] Walk-In mean_platel unknown 9.9 unknown fL _2784 unknown unknown Clinic et_volume [facility] [place] Walk-In basophil_co unknown 0.0 10 unknown _2427 unknown unknown Clinic unt_blood 3/UL [facility] [place] Walk-In monocyte_co unknown 0.9 10 unknown _2422 unknown unknown Clinic unt_blood 3/UL [facility] [place] Walk-In lymphocyte_ unknown 1.5 10 unknown _2420 unknown unknown Clinic count_blood 3/UL [facility] [place] Walk-In neutrophil_ unknown 8.8 10 unknown _2418 unknown unknown Clinic count_blood 3/UL [facility] [place] B-type_natr unknown 270 unknown pg/mL _23708 unknown unknown Clinic iuretic_pept Primary ide_brain_na Care & triuretic_pe Ancillary ptide_ Services [place] Walk-In Glucose_Mas unknown 184 unknown mg/dL _2345-7 unknow n unknown Clinic s_volume_in_ Primary Serum_or_Pla Care & sma Ancillary Services [place] Walk-In Creatinine_ unknown 0.9 unknown mg/dL _2160-0 unknow n unknown Clinic Mass_volume_ Primary in_Serum_or_ Care & Plasma [facility]illary [facility] [place]-In Chloride_Mo unknown 93 unknown mmol/ _5-0 unknow n unknown Clinic les_volume_i L Primary n_Serum_or_P Care & lasma Ancillary Services [place] [facility]-In carbon_diox unknown 35 unknown mmol/ _8-9 unknow n unknown Clinic ide_serum_to L Primary dale Care & [facility] [place] Walk-In Calcium_Mol unknown 9.2 unknown mg/dL _1999-8 unknow n unknown Clinic es_volume_in Primary _Serum_or_Pl Care & asma Ancillary Services [place]-In Anion_gap_4 unknown 12.0 unknown _1863-0 unknow n unknown Clinic _in_Serum_or Primary _Plasma [facility] [place] Walk-In creatinine_ unknown 0.9 unknown mg/dL _18 unknown unknown Clinic serum [facility] [place] Walk-In mean_corpus unknown 29.3 unknown g/dL _17029 unknown unknown Clinic cular_hemogl Primary obin_concent Care & ration_rbc Ancillary Services [place] [facility] sodium_seru unknown 140 unknown mmol/ _159 unknown unknown Clinic m L [facility] [place] Walk-In chloride_se unknown 93 unknown mmol/ _13 unknown unknown Clinic rum L [facility] [place] Walk-In calcium_ser unknown 9.2 unknown mg/dL _11 unknown unknown Clinic um [facility] [place] Walk-In mean_corpus unknown 25.5 unknown pg _1031 unknown unknown Clinic cular_hemogl Primary obin_RBC Care & [facility] [place] [facility] red_blood_c unknown 15.1 unknown % _1030 unknown unknown Clinic ell_distribu Primary tion_width Care & [facility]illary [facility] [place] T unknown 11.6 X10 unknown WBC unknown u nknow Clinic 3/UL [facility] [place] [facility] T unknown 15.1 unknown % RDW unknown [facility] [place] [facility] T unknown 3.68 10 unknown RBC unknown un known Clinic 6/UL [facility] [place] [facility] T unknown 367 10 unknown PLT unknown [facility] 3/UL [facility] [place] [facility] NEUTROPHILS unknown 8.8 10 unknown NE_ unknown unknown Clinic _AUTO_ 3/UL [facility] T unknown 8.8 10 unknown NEUT_AUTO_ unknown unknown Clinic 3/UL [facility] [place] [facility] T unknown 140 unknown mmol/ NA unknown [facility] L [facility] [place] [facility] T unknown 9.9 unknown fL MPV unknown [facility] [place] [facility] MONOCYTES_A unknown 0.9 10 unknown MO_ unknown unknown Clinic UTO_ 3/UL [facility] [place] T unknown 0.9 10 unknown MONO_AUTO_ unknown unknown Clinic 3/UL [facility] T unknown 87.2 unknown fL MCV unknown [facility] [place] [facility] T unknown 29.3 unknown g/dL MCHC unknown [facility] [place] [facility] MEAN_CORPUS unknown 29.3 unknown g/dL MCHC unknown unknown Clinic CULAR_HGB_CO Primary NC Care & Ancillary Services [facility] T unknown 25.5 unknown pg MCH unknown [facility] [place] [facility] LYMPHOCYTES unknown 1.5 10 unknown LY_ unknown unknown Clinic _AUTO_ 3/UL [facility] T unknown 1.5 10 unknown LYMPH_AUTO_ unknown unknown Clinic 3/UL [facility] T unknown 3.7 unknown meq/L K unknown [facility] [place] [facility] T unknown 9.4 unknown g/dL HGB unknown [facility] [place] [facility] T unknown 32.1 unknown % HCT unknown [facility] [place] [facility] T unknown 184 unknown mg/dL GLU unknown [facility] [place] [facility] T unknown 63 unknown mL/mi GFR_-_MDRD unknown unknown Clinic n [facility] [place] [facility] GFR_-_MDRD unknown 63 unknown mL/mi GFR unknown unknown Clinic n [facility] [place] T unknown 12.0 unknown GAP unknown [facility] [place] [facility] EOSINOPHILS unknown 0.0 10 unknown EO_ unknown unknown Clinic _AUTO_ 3/UL [facility] T unknown 0.0 10 unknown EOS_AUTO_ unknown unknown Clinic 3/ [facility] T unknown 0.9 unknown mg/dL CREAT unknown [facility] [place] [facility] T unknown 35 unknown mmol/ CO2 unknown [facility] L [facility] [place] [facility] T unknown 93 unknown mmol/ CL unknown [facility] L [facility] [place] [facility] T unknown 9.2 unknown mg/dL CA unknown [facility] [place] [facility] T unknown 38 unknown mg/dL BUN unknown [facility] [place] [facility] T unknown 270 unknown pg/mL BNP unknown [facility] [place] [facility] BASOPHILS_A unknown 0.0 10 unknown BA_ unknown unknown Clinic UTO_ 3/UL [facility] T unknown 0.0 10 unknown BASO_AUTO_ unknown unknown Clinic 3/UL [facility] [place] platelet_co unknown INCREASED unknown _9317-9 unk nown unknown Clinic unt_estimate (>450,000) [facility] [place] urea_nitrog unknown 37 unknown mg/dL _9 unknown unknown Clinic en_blood [facility] Erythrocyte unknown 3.96 10 unknown _789-8 unknow n unknown Clinic s_volume_in_ 6/UL Primary Blood_by_Aut Care & omated_count Ancillary Services [facility] Erythrocyte unknown 15.1 unknown % _788-0 unknown unknown Clinic _distributio Primary n_width_Rati Care & o_by_Automat Ancillary ed_count Services [facility] MCV_Entitic unknown 86.6 unknown fL _787-2 unknown unknown Clinic _volume_by_A Primary utomated_cou Care & nt Ancillary Services [place] MCH_Entitic unknown 25.0 unknown pg _785-6 unknown unknown Clinic _mass_by_Aut Primary omated_count Care & Ancillary Services [place] Platelets_v unknown 451 10 unknown _777-3 unknown unknown Clinic olume_in_Blo 3/UL Primary od_by_Automa Care & ted_count Ancillary Services [place] Platelet_me unknown 9.8 unknown fL _776-5 unknown unknown Clinic an_volume_En Primary titic_volume Care & _in_Blood_by Ancillary _[facility]-In Hemoglobin_ unknown 9.9 unknown g/dL _718-7 unknown unknown Clinic Mass_volume_ Primary in_Blood Care & Ancillary Services [place] [facility]-In leukocyte_c unknown 18.1 X10 unknown _68 unkno wn unknown Clinic ount_blood 3/UL [facility] [place] [facility] erythrocyte unknown 3.96 10 unknown _67 unknow n unknown Clinic _RBC_count 6/UL [facility] Leukocytes_ unknown 18.1 X10 unknown _6690-2 unkn own unknown Clinic volume_in_Bl 3/UL Primary ood_by_Autom Care & ated_count Ancillary Services [facility] Glomerular_ unknown 85 unknown mL/mi _66455 unknown unknown Clinic Filtration_r n Primary ate Care & Ancillary Services [place] [facility] platelet_co unknown 451 10 unknown _66 unknown unknown Clinic unt 3/UL [facility] [place] [facility] hemoglobin_ unknown 9.9 unknown g/dL _65 unknown unknown Clinic blood [facility] [place] [facility]In hematocrit_ unknown 34.3 unknown % _64 unknown unknown Clinic blood [facility] [place] [facility] potassium_b unknown 4.4 unknown meq/L _6298-4 unknow n unknown Clinic lood [facility] [place] Methicillin unknown NEGATIVE unknown _53661 unkno wn unknown Clinic -resistant_S Primary taphylococcu Care & s_aureus_mec Ancillary A_gene_by_PC Services R [place] [facility] monocytes_a unknown 2.0 10 unknown _52323 unknown unknown Clinic bsolute_manu 3/UL Primary al Care & [facility] Services [place] Walk-In lymphocytes unknown 2.2 10 unknown _52322 unknown unknown Clinic _absolute_ma 3/UL Primary nual Care & Ancillary Services [place] [facility]-In polymorphon unknown 13.9 10 unknown _52320 unknow n unknown Clinic uclear_neutr 3/UL Primary ophils_absol Care & ute_manual Ancillary Services [facility] Glomerular_f unknown 85 unknown mL/mi _48642-3 unkno wn unknown Clinic iltration_ra n Primary te_1.73_sq_M Care & .predicted_a Ancillary mong_non-ida Services cks_Volume_R [place] ate_Area_in_ Serum_Plasma _or_Blood_by _Creatinine- based_formul a_MDRD_ Walk-In Hematocrit_ unknown 34.3 unknown % _4544-3 unknow n unknown Clinic Volume_Fract Primary ion_of_Blood Care & _by_Automate Ancillary d_count Services [facility] carbon_diox unknown 35 unknown mmol/ _3962 unknown unknown Clinic ide_serum_to L Primary dale Care & Ancillary Services [place] [facility] blood_gluco unknown 158 unknown mg/dL _3565 unknown unknown Clinic se [facility] [place] [facility]In potassium_b unknown 4.4 unknown meq/L _3483 unknown unknown Clinic lood [facility] [place] [facility] mean_corpus unknown 86.6 unknown fL _315 unknown unknown Clinic cular_volume Primary _RBC Care & Ancillary Services [place] [facility] platelet_co unknown INCREASED unknown _3109 unkn own unknown Clinic unt_estimate (>450,000) [facility] [place] [facility] Urea_nitrog unknown 37 unknown mg/dL _3094-0 unknow n unknown Clinic en_Mass_volu Primary me_in_Serum_ Care & or_Plasma Ancillary Services [place] [facility] Sodium_Mole unknown 142 unknown mmol/ _2951-2 unknow n unknown Clinic s_volume_in_ L Primary Serum_or_Pla Care & sma Ancillary Services [place] [facility] anion_gap_s unknown 11.0 unknown _279 unknown unknown Clinic joanne [facility] [place] [facility] mean_platel unknown 9.8 unknown fL _2784 unknown unknown Clinic et_volume [facility] Services [place] [facility] Glucose_Mas unknown 158 unknown mg/dL _2345-7 unknow n unknown Clinic s_volume_in_ Primary Serum_or_Pla Care & sma Ancillary Services [place] [facility]-In Creatinine_ unknown 0.7 unknown mg/dL _2160-0 unknow n unknown Clinic Mass_volume_ Primary in_Serum_or_ Care & Plasma Ancillary Services [place] Chloride_Mo unknown 96 unknown mmol/ _5-0 unknow n unknown Clinic les_volume_i L Primary n_Serum_or_P Care & lasma Ancillary Services [place] [facility] carbon_diox unknown 35 unknown mmol/ _2028-9 unknow n unknown Clinic ide_serum_to L Primary dale Care & Ancillary Services [place] [facility]-In Calcium_Mol unknown 9.2 unknown mg/dL _2000-8 unknow n unknown Clinic es_volume_in Primary _Serum_or_Pl Care & asma Ancillary Services [facility] Anion_gap_4 unknown 11.0 unknown _1863-0 unknow n unknown Clinic _in_Serum_or Primary _Plasma Care & Ancillary Services [place] [facility] creatinine_ unknown 0.7 unknown mg/dL _18 unknown unknown Clinic serum [facility] Services [place] [facility] mean_corpus unknown 28.9 unknown g/dL _17029 unknown unknown Clinic cular_hemogl Primary obin_concent Care & ration_rbc Ancillary Services [place] [facility] sodium_seru unknown 142 unknown mmol/ _159 unknown unknown Clinic m L [facility] [place] [facility] chloride_se unknown 96 unknown mmol/ _13 unknown unknown Clinic rum L [facility] Services [place] [facility] calcium_ser unknown 9.2 unknown mg/dL _11 unknown unknown Clinic um [facility] total_cells unknown 100 unknown _[id number] unk nown unknown Clinic _counted_blo Primary od Care & Ancillary Services [facility] mean_corpus unknown 25.0 unknown pg _1031 unknown unknown Clinic cular_hemogl Primary obin_RBC Care & Ancillary Services [facility] red_blood_c unknown 15.1 unknown % _1030 unknown unknown Clinic ell_distribu Primary tion_width Care & Ancillary Services [facility] T unknown 18.1 X10 unknown WBC unknown u nknown Clinic 3/UL [facility] T unknown 100 unknown TOT_CELLS_C unknown unknown Clinic OUNT [facility] TOTAL_CELLS unknown 100 unknown TCC unknown unknown Clinic _COUNTED Primary Care & Ancillary Services [facility] T unknown 15.1 unknown % RDW unknown unk nown Clinic [facility] T unknown 3.96 10 unknown RBC unknown un known Clinic 6/UL [facility] T unknown INCREASED unknown PLT_EST unknown unknown Clinic (>450,000) [facility] PLATELET_ES unknown INCREASED unknown PLTEST unkn own unknown Clinic [facility] (>450,000) Primary L Care & Ancillary Services [facility] T unknown 451 10 unknown PLT unknown unk nown Clinic 3/UL Primary [facility] Ancillary Services [facility] T unknown 13.9 10 unknown NEUT_MANUAL unknow n unknown Clinic 3/UL _ [facility] Services [facility] NEUTROPHILS unknown 13.9 10 unknown NEUT_M unknow n unknown Clinic _MANUAL_ 3/UL [facility] T unknown 142 unknown mmol/ NA unknown unk nown Clinic L [facility] T unknown NEGATIVE unknown MRSACCUADM unknow n unknown Clinic [facility] T unknown 9.8 unknown fL MPV unknown unk nown Clinic [facility] T unknown 2.0 10 unknown MONO_MANUAL unknown unknown Clinic 3/UL _ Primary Care & Ancillary Services [facility] MONOCYTES_M unknown 2.0 10 unknown MONO_M unknown unknown Clinic ANUAL_ 3/UL Primary Care & Ancillary Services [facility] T unknown 86.6 unknown fL MCV unknown [facility] Primary Care & [facility] unknown 28.9 unknown g/dL [facility] unknown [facility] unknown 25.0 unknown pg MCH unknown [facility] unknown 2.2 10 unknown LYMPH_MANUA unknown unknown Clinic 3/UL L_ [facility] LYMPHOCYTES unknown 2.2 10 unknown LYMPH_M unknow n unknown Clinic _MANUAL_ 3/UL [facility] unknown 4.4 unknown meq/L K unknown [facility] unknown 9.9 unknown g/dL HGB unknown [facility] unknown 34.3 unknown % HCT unknown [facility] unknown 158 unknown mg/dL GLU unknown [facility] unknown 85 unknown mL/mi GFR_-_MDRD unknown unknown Clinic n [facility] GFR_-_MDRD unknown 85 unknown mL/mi GFR unknown unknown Clinic n [facility] unknown 11.0 unknown GAP unknown [facility] unknown 0.7 unknown mg/dL CREAT unknown [facility] unknown 35 unknown mmol/ CO2 unknown [facility] L [facility] unknown 96 unknown mmol/ CL unknown [facility] L [facility] unknown 9.2 unknown mg/dL CA unknown [facility] unknown 37 unknown mg/dL BUN unknown [facility]own Clinic [facility] platelet_co unknown INCREASED unknown _9317-9 unk nown unknown Clinic unt_estimate (>450,000) [facility] urea_nitrog unknown 42 unknown mg/dL _9 unknown unknown Clinic en_blood [facility] Erythrocyte unknown 3.77 10 unknown _789-8 unknow n unknown Clinic s_volume_in_ 6/UL Primary Blood_by_Aut Care & omated_count [facility] Erythrocyte unknown 15.1 unknown % _788-0 unknown unknown Clinic _distributio Primary n_width_Rati Care & o_by_Automat Ancillary ed_count Services [facility] MCV_Entitic unknown 83.0 unknown fL _787-2 unknown unknown Clinic _volume_by_A Primary utomated_cou Care & nt [facility] MCH_Entitic unknown 24.9 unknown pg _785-6 unknown unknown Clinic _mass_by_Aut Primary omated_count Care & [facility] Platelets_v unknown 454 10 unknown _777-3 unknown unknown Clinic olume_in_Blo 3/UL Primary od_by_Automa Care & ted_count [facility] Platelet_me unknown 10.0 unknown fL _776-5 unknown unknown Clinic an_volume_En Primary titic_volume Care & _in_Blood_by Ancillary _[facility] Hemoglobin_ unknown 9.4 unknown g/dL _718-7 unknown unknown Clinic Mass_volume_ Primary in_Blood Care & [facility] leukocyte_c unknown 20.3 X10 unknown _68 unkno wn unknown Clinic ount_blood 3/UL [facility] erythrocyte unknown 3.77 10 unknown _67 unknow n unknown Clinic _RBC_count 6/UL [facility] Leukocytes_ unknown 20.3 X10 unknown _6690-2 unkn own unknown Clinic volume_in_Bl 3/UL Primary ood_by_Autom Care & ated_count [facility] Glomerular_ unknown 63 unknown mL/mi _66455 unknown unknown Clinic Filtration_r n Primary ate Care & [facility] platelet_co unknown 454 10 unknown _66 unknown unknown Clinic unt 3/UL [facility] hemoglobin_ unknown 9.4 unknown g/dL _65 unknown unknown Clinic blood [facility] hematocrit_ unknown 31.3 unknown % _64 unknown unknown Clinic blood [facility] potassium_b unknown 3.2 unknown meq/L _6298-4 unknow n unknown Clinic lood [facility] monocytes_a unknown 2.8 10 unknown _52323 unknown unknown Clinic bsolute_manu 3/UL Primary al Care & [facility] lymphocytes unknown 2.0 10 unknown _52322 unknown unknown Clinic _absolute_ma 3/UL Primary nual Care & [facility] polymorphon unknown 15.4 10 unknown _52320 unknow n unknown Clinic uclear_neutr 3/UL Primary ophils_absol Care & ute_manual [facility] Glomerular_f unknown 63 unknown mL/mi _48642-3 unkno wn unknown Clinic iltration_ra n Primary te_1.73_sq_M Care & .predicted_a Ancillary mong_non-ida Services cks_Volume_R [facility] ate_Area_in_ Serum_Plasma _or_Blood_by _Creatinine- based_formul a_MDRD_ Walk-In Hematocrit_ unknown 31.3 unknown % _4544-3 unknow n unknown Clinic Volume_Fract Primary ion_of_Blood Care & _by_Automate Ancillary d_count Services [facility] carbon_diox unknown 30 unknown mmol/ _3962 unknown unknown Clinic ide_serum_to L Primary dale Care & Ancillary [facility] blood_gluco unknown 170 unknown mg/dL _3565 unknown unknown Clinic se [facility] potassium_b unknown 3.2 unknown meq/L _3483 unknown unknown Clinic lood [facility] mean_corpus unknown 83.0 unknown fL _315 unknown unknown Clinic cular_volume Primary _RBC Care & [facility] platelet_co unknown INCREASED unknown _3109 unkn own unknown Clinic unt_estimate (>450,000) [facility] Urea_nitrog unknown 42 unknown mg/dL _3094-0 unknow n unknown Clinic en_Mass_volu Primary me_in_Serum_ Care & or_Plasma [facility] Sodium_Mole unknown 138 unknown mmol/ _2951-2 unknow n unknown Clinic s_volume_in_ L Primary Serum_or_Pla Care & sma [facility] anion_gap_s unknown 15.0 unknown _279 unknown unknown Clinic joanne [facility] mean_platel unknown 10.0 unknown fL _2784 unknown unknown Clinic et_volume Primary [facility] Glucose_Mas unknown 170 unknown mg/dL _2345-7 unknow n unknown Clinic s_volume_in_ Primary Serum_or_Pla Care & sma [facility] Creatinine_ unknown 0.9 unknown mg/dL _2160-0 unknow n unknown Clinic Mass_volume_ Primary in_Serum_or_ Care & Plasma [facility] Chloride_Mo unknown 93 unknown mmol/ _2075-0 unknow n unknown Clinic les_volume_i L Primary n_Serum_or_P Care & lasma Ancillary [facility] carbon_diox unknown 30 unknown mmol/ _2028-9 unknow n unknown Clinic ide_serum_to L Primary dale Care & [facility]illary [facility] Calcium_Mol unknown 9.4 unknown mg/dL _1999-8 unknow n unknown Clinic es_volume_in Primary _Serum_or_Pl Care & asma [facility]illary [facility] Anion_gap_4 unknown 15.0 unknown _1863-0 unknow n unknown Clinic _in_Serum_or Primary _Plasma Care & [facility] creatinine_ unknown 0.9 unknown mg/dL _18 unknown unknown Clinic serum [facility] mean_corpus unknown 30.0 unknown g/dL _17029 unknown unknown Clinic cular_hemogl Primary obin_concent Care & ration_rbc [facility] sodium_seru unknown 138 unknown mmol/ _159 unknown unknown Clinic m L [facility] chloride_se unknown 93 unknown mmol/ _13 unknown unknown Clinic rum L [facility] calcium_ser unknown 9.4 unknown mg/dL _11 unknown unknown Clinic um [facility] total_cells unknown 100 unknown _[id number] unk nown unknown Clinic _counted_blo Primary od Care & [facility] mean_corpus unknown 24.9 unknown pg _1031 unknown unknown Clinic cular_hemogl Primary obin_RBC Care & [facility] red_blood_c unknown 15.1 unknown % _1030 unknown unknown Clinic ell_distribu Primary tion_width Care & [facility]illary [facility] unknown 20.3 X10 unknown WBC unknown u nknown Clinic 3/UL [facility] unknown 100 unknown TOT_CELLS_C unknown unknown Clinic OUNT [facility] TOTAL_CELLS unknown 100 unknown TCC unknown unknown Clinic _COUNTED [facility] unknown 15.1 unknown % RDW unknown [facility] unknown 3.77 10 unknown RBC unknown un known Clinic 6/UL [facility] unknown INCREASED unknown PLT_EST unknown unknown Clinic (>450,000) [facility] PLATELET_ES unknown INCREASED unknown PLTEST unkn own unknown Clinic [facility] (>450,000) Primary L Care & [facility] unknown 454 10 unknown PLT unknown [facility] 3/UL [facility] unknown 15.4 10 unknown NEUT_MANUAL unknow n unknown Clinic 3/UL _ [facility] NEUTROPHILS unknown 15.4 10 unknown NEUT_M unknow n unknown Clinic _MANUAL_ 3/UL [facility] unknown 138 unknown mmol/ NA unknown formerly [facility] Clinic L [facility] unknown 10.0 unknown fL MPV unknown [facility] unknown 2.8 10 unknown MONO_MANUAL unknown unknown Clinic 3/UL _ [facility] MONOCYTES_M unknown 2.8 10 unknown MONO_M unknown unknown Clinic ANUAL_ 3/UL [facility] unknown 83.0 unknown fL MCV unknown [facility] MEAN_CORPUS unknown 83.0 unknown fL MCV unknown unknown Clinic CULAR_VOLUME [facility] unknown 30.0 unknown g/dL [facility] unknown [facility] unknown 24.9 unknown pg [facility] unknown [facility] unknown 2.0 10 unknown LYMPH_MANUA unknown unknown Clinic 3/UL L_ [facility] LYMPHOCYTES unknown 2.0 10 unknown LYMPH_M unknow n unknown Clinic _MANUAL_ 3/UL [facility] unknown 3.2 unknown meq/L K unknown [facility] unknown 9.4 unknown g/dL HGB unknown [facility] HGB_-_HEMOG unknown 9.4 unknown g/dL HGB unknown unknown Clinic LOBIN [facility] unknown 31.3 unknown % HCT unknown [facility] unknown 170 unknown mg/dL GLU unknown [facility] unknown 63 unknown mL/mi GFR_-_MDRD unknown unknown Clinic n [facility] GFR_-_MDRD unknown 63 unknown mL/mi GFR unknown unknown Clinic n [facility] unknown 15.0 unknown GAP unknown [facility] unknown 0.9 unknown mg/dL CREAT unknown [facility] unknown 30 unknown mmol/ CO2 unknown [facility] L [facility] T unknown 93 unknown mmol/ CL unknown [facility] L [facility] unknown 9.4 unknown mg/dL CA unknown [facility] unknown 42 unknown mg/dL BUN unknown unk nown Clinic [facility] urea_nitrog unknown 42 unknown mg/dL _9 unknown unknown Clinic en_blood [facility] Erythrocyte unknown 3.40 10 unknown _789-8 unknow n unknown Clinic s_volume_in_ 6/UL Primary Blood_by_Aut Care & omated_count Ancillary [facility] Erythrocyte unknown 14.7 unknown % _788-0 unknown unknown Clinic _distributio Primary n_width_Rati Care & o_by_Automat Ancillary ed_count Services [facility] MCV_Entitic unknown 84.7 unknown fL _787-2 unknown unknown Clinic _volume_by_A Primary utomated_cou Care & nt Ancillary [facility] MCH_Entitic unknown 25.3 unknown pg _785-6 unknown unknown Clinic _mass_by_Aut Primary omated_count Care & Ancillary Services [facility] Platelets_v unknown 376 10 unknown _777-3 unknown unknown Clinic olume_in_Blo 3/UL Primary od_by_Automa Care & ted_count Ancillary Services [facility] Platelet_me unknown 10.2 unknown fL _776-5 unknown unknown Clinic an_volume_En Primary titic_volume Care & _in_Blood_by Ancillary _[facility] neutrophil_ unknown 13.5 10 unknown _752-6 unknow n unknown Clinic count_blood 3/UL Primary Care & [facility]illary Services [facility] monocyte_co unknown 0.6 10 unknown _743-5 unknown unknown Clinic unt_blood 3/UL [facility] lymphocyte_ unknown 0.9 10 unknown _732-8 unknown unknown Clinic count_blood 3/UL [facility] Hemoglobin_ unknown 8.6 unknown g/dL _718-7 unknown unknown Clinic Mass_volume_ Primary in_Blood Care & Ancillary Services [facility] eosinophil_ unknown 0.0 10 unknown _712-0 unknown unknown Clinic count_blood 3/UL Primary [facility] Basophils_v unknown 0.0 10 unknown _705-4 unknown unknown Clinic olume_in_Blo 3/UL Primary od_by_Manual Care & _count Ancillary Services [facility] leukocyte_c unknown 15.1 X10 unknown _68 unkno wn unknown Clinic ount_blood 3/UL Primary [facility] erythrocyte unknown 3.40 10 unknown _67 unknow n unknown Clinic _RBC_count 6/UL [facility] Leukocytes_ unknown 15.1 X10 unknown _6690-2 unkn own unknown Clinic volume_in_Bl 3/UL Primary ood_by_Autom Care & ated_count Ancillary [facility] Glomerular_ unknown 63 unknown mL/mi _66455 unknown unknown Clinic Filtration_r n Primary ate Care & [facility]illary Services [facility] platelet_co unknown 376 10 unknown _66 unknown unknown Clinic unt 3/UL Primary [facility] hemoglobin_ unknown 8.6 unknown g/dL _65 unknown unknown Clinic blood [facility] hematocrit_ unknown 28.8 unknown % _64 unknown unknown Clinic blood [facility] potassium_b unknown 4.3 unknown meq/L _6298-4 unknow n unknown Clinic lood [facility] Glomerular_f unknown 63 unknown mL/mi _48642-3 unkno wn unknown Clinic iltration_ra n Primary te_1.73_sq_M Care & .predicted_a Ancillary mong_non-ida Services cks_Volume_R [facility] ate_Area_in_ Serum_Plasma _or_Blood_by _Creatinine- based_formul a_MDRD_ [facility]-In Hematocrit_ unknown 28.8 unknown % _4544-3 unknow n unknown Clinic Volume_Fract Primary ion_of_Blood Care & _by_Automate Ancillary d_count Services [facility] carbon_diox unknown 30 unknown mmol/ _3962 unknown unknown Clinic ide_serum_to L Primary dale Care & Ancillary Services [facility] blood_gluco unknown 185 unknown mg/dL _3565 unknown unknown Clinic se [facility] potassium_b unknown 4.3 unknown meq/L _3483 unknown unknown Clinic lood [facility] mean_corpus unknown 84.7 unknown fL _315 unknown unknown Clinic cular_volume Primary _RBC Care & Ancillary Services [facility] Urea_nitrog unknown 42 unknown mg/dL _3094-0 unknow n unknown Clinic en_Mass_volu Primary me_in_Serum_ Care & or_Plasma Ancillary [facility] Sodium_Mole unknown 136 unknown mmol/ _2951-2 unknow n unknown Clinic s_volume_in_ L Primary Serum_or_Pla Care & sma Ancillary Services [facility] eosinophil_ unknown 0.0 10 unknown _285 unknown unknown Clinic count_blood 3/UL Primary Care [facility] anion_gap_s unknown 11.0 unknown _279 unknown unknown Clinic joanne Primary [facility] & [facility] mean_platel unknown 10.2 unknown fL _2784 unknown unknown Clinic et_volume Primary Care & Ancillary Services [facility] basophil_co unknown 0.0 10 unknown _2427 unknown unknown Clinic unt_blood 3/UL Primary Care & Ancillary Services [facility] monocyte_co unknown 0.6 10 unknown _2422 unknown unknown Clinic unt_blood 3/UL Primary [facility] Anc[facility] Services [facility] lymphocyte_ unknown 0.9 10 unknown _2420 unknown unknown Clinic count_blood 3/UL Primary [facility]illary Services [facility] neutrophil_ unknown 13.5 10 unknown _2418 unknow n unknown Clinic count_blood 3/UL Primary Care [facility] Ancillary Services [facility] Glucose_Mas unknown 185 unknown mg/dL _2345-7 unknow n unknown Clinic s_volume_in_ Primary Serum_or_Pla Care & sma Ancillary Services [facility] Creatinine_ unknown 0.9 unknown mg/dL _2160-0 unknow n unknown Clinic Mass_volume_ Primary in_Serum_or_ Care & Plasma Ancillary Services [facility] Chloride_Mo unknown 95 unknown mmol/ _2075-0 unknow n unknown Clinic les_volume_i L Primary n_Serum_or_P Care & lasma Ancillary Services [facility] carbon_diox unknown 30 unknown mmol/ _8-9 unknow n unknown Clinic ide_serum_to L Primary dale Care & Ancillary Services [facility] Calcium_Mol unknown 9.0 unknown mg/dL _1999-8 unknow n unknown Clinic es_volume_in Primary _Serum_or_Pl Care & asma Ancillary Services [facility] Anion_gap_4 unknown 11.0 unknown _1863-0 unknow n unknown Clinic _in_Serum_or Primary _Plasma Care & Ancillary Services [facility] creatinine_ unknown 0.9 unknown mg/dL _18 unknown unknown Clinic serum [facility] Services [facility] mean_corpus unknown 29.9 unknown g/dL _17029 unknown unknown Clinic cular_hemogl Primary obin_concent Care & ration_rbc Ancillary Services [facility] sodium_seru unknown 136 unknown mmol/ _159 unknown unknown Clinic m L Primary [facility] Services [facility] chloride_se unknown 95 unknown mmol/ _13 unknown unknown Clinic rum L Primary [facility] Ancillary Services [facility] calcium_ser unknown 9.0 unknown mg/dL _11 unknown unknown Clinic um [facility] Services [facility] mean_corpus unknown 25.3 unknown pg _1031 unknown unknown Clinic cular_hemogl Primary obin_RBC Care & Ancillary Services [facility] red_blood_c unknown 14.7 unknown % _1030 unknown unknown Clinic ell_distribu Primary tion_width Care & Ancillary Services [facility] T unknown 15.1 X10 unknown WBC unknown u nknown Clinic 3/UL Primary [facility] T unknown 14.7 unknown % RDW unknown [facility] T unknown 3.40 10 unknown RBC unknown un known Clinic 6/UL Primary Care & [facility] Services [facility] T unknown 376 10 unknown PLT unknown [facility] 3/UL Primary Care & [facility] NEUTROPHILS unknown 13.5 10 unknown NE_ unknow n unknown Clinic _AUTO_ 3/UL Primary [facility] Services [facility] T unknown 13.5 10 unknown NEUT_AUTO_ unknown unknown Clinic 3/UL Primary [facility] T unknown 136 unknown mmol/ NA unknown formerly [facility] Clinic L Primary Care & Anc[facility] Services [facility] T unknown 10.2 unknown fL MPV unknown [facility] MONOCYTES_A unknown 0.6 10 unknown MO_ unknown unknown Clinic UTO_ 3/UL Primary Care [facility] Anc[facility] Services [facility] T unknown 0.6 10 unknown MONO_AUTO_ unknown unknown Clinic 3/UL Primary [facility] Services [facility] T unknown 84.7 unknown fL MCV unknown [facility] T unknown 29.9 unknown g/dL [facility] unknown [facility] T unknown 25.3 unknown pg MCH unknown [facility] LYMPHOCYTES unknown 0.9 10 unknown LY_ unknown unknown Clinic _AUTO_ 3/UL Primary [facility] T unknown 0.9 10 unknown LYMPH_AUTO_ unknown unknown Clinic 3/UL Primary [facility] Services [facility] T unknown 4.3 unknown meq/L K unknown [facility] T unknown 8.6 unknown g/dL HGB unknown [facility] T unknown 28.8 unknown % HCT unknown [facility] T unknown 185 unknown mg/dL GLU unknown [facility] T unknown 63 unknown mL/mi GFR_-_MDRD unknown unknown Clinic n [facility] GFR_-_MDRD unknown 63 unknown mL/mi GFR unknown unknown Clinic n [facility] T unknown 11.0 unknown GAP unknown [facility] EOSINOPHILS unknown 0.0 10 unknown EO_ unknown unknown Clinic _AUTO_ 3/UL Primary Care [facility] Ancillary Services [facility] T unknown 0.0 10 unknown EOS_AUTO_ unknown unknown [facility] 3/UL Primary Care & Ancillary Services [facility] T unknown 0.9 unknown mg/dL CREAT unknown [facility] T unknown 30 unknown mmol/ CO2 unknown [facility] L [facility] T unknown 95 unknown mmol/ CL unknown [facility] L [facility] Care [facility] Services [facility] T unknown 9.0 unknown mg/dL CA unknown [facility] T unknown 42 unknown mg/dL BUN unknown unk nown Clinic [facility] BASOPHILS_A unknown 0.0 10 unknown BA_ unknown unknown Clinic UTO_ 3/UL Primary Care [facility]illary Services [facility] T unknown 0.0 10 unknown BASO_AUTO_ unknown unknown Clinic 3/UL Primary [facility] Services [facility] urea_nitrog unknown 39 unknown mg/dL _9 unknown unknown Clinic en_blood Primary Care [facility] Services [facility] Erythrocyte unknown 3.27 10 unknown _789-8 unknow n unknown Clinic s_volume_in_ 6/UL Primary Blood_by_Aut Care & omated_count Ancillary Services [facility] Erythrocyte unknown 14.8 unknown % _788-0 unknown unknown Clinic _distributio Primary n_width_Rati Care & o_by_Automat Ancillary ed_count Services [facility] MCV_Entitic unknown 86.9 unknown fL _787-2 unknown unknown Clinic _volume_by_A Primary utomated_cou Care & nt Ancillary Services [facility] MCH_Entitic unknown 25.4 unknown pg _785-6 unknown unknown Clinic _mass_by_Aut Primary omated_count [facility] Platelets_v unknown 362 10 unknown _777-3 unknown unknown Clinic olume_in_Blo 3/UL Primary od_by_Automa Care & ted_count Ancillary [facility] Platelet_me unknown 10.4 unknown fL _776-5 unknown unknown Clinic an_volume_En Primary titic_volume Care & _in_Blood_by Ancillary _[facility] neutrophil_ unknown 11.6 10 unknown _752-6 unknow n unknown Clinic count_blood 3/UL Primary [facility] monocyte_co unknown 0.5 10 unknown _743-5 unknown unknown Clinic unt_blood 3/UL [facility] lymphocyte_ unknown 0.8 10 unknown _732-8 unknown unknown Clinic count_blood 3/UL Primary [facility] Hemoglobin_ unknown 8.3 unknown g/dL _718-7 unknown unknown Clinic Mass_volume_ Primary in_Blood [facility] eosinophil_ unknown 0.0 10 unknown _712-0 unknown unknown Clinic count_blood 3/UL Primary [facility] Basophils_v unknown 0.0 10 unknown _705-4 unknown unknown Clinic olume_in_Blo 3/UL Primary od_by_Manual Care & _count Ancillary Services [facility] leukocyte_c unknown 12.9 X10 unknown _68 unkno wn unknown Clinic ount_blood 3/UL Primary [facility] erythrocyte unknown 3.27 10 unknown _67 unknow n unknown Clinic _RBC_count 6/UL Primary [facility] Leukocytes_ unknown 12.9 X10 unknown _6690-2 unkn own unknown Clinic volume_in_Bl 3/UL Primary ood_by_Autom Care & ated_count [facility] Glomerular_ unknown 56 unknown mL/mi _66455 unknown unknown Clinic Filtration_r n Primary ate [facility] platelet_co unknown 362 10 unknown _66 unknown unknown Clinic unt 3/UL Primary [facility] hemoglobin_ unknown 8.3 unknown g/dL _65 unknown unknown Clinic blood [facility] hematocrit_ unknown 28.4 unknown % _64 unknown unknown Clinic blood [facility] potassium_b unknown 5.2 unknown meq/L _6298-4 unknow n unknown Clinic lood Primary [facility] Glomerular_f unknown 56 unknown mL/mi _48642-3 unkno wn unknown Clinic iltration_ra n Primary te_1.73_sq_M Care & .predicted_a Ancillary mong_non-ida Services cks_Volume_R [facility] ate_Area_in_ Serum_Plasma _or_Blood_by _Creatinine- based_formul a_MDRD_ [facility] Hematocrit_ unknown 28.4 unknown % _4544-3 unknow n unknown Clinic Volume_Fract Primary ion_of_Blood Care & _by_Automate Ancillary d_count Services [facility] carbon_diox unknown 28 unknown mmol/ _3962 unknown unknown Clinic ide_serum_to L Primary dale [facility] blood_gluco unknown 200 unknown mg/dL _3565 unknown unknown Clinic se Primary [facility] potassium_b unknown 5.2 unknown meq/L _3483 unknown unknown Clinic lood Primary [facility] mean_corpus unknown 86.9 unknown fL _315 unknown unknown Clinic cular_volume Primary _RBC [facility] Urea_nitrog unknown 39 unknown mg/dL _3094-0 unknow n unknown Clinic en_Mass_volu Primary me_in_Serum_ Care & or_Plasma [facility] Sodium_Mole unknown 142 unknown mmol/ _2951-2 unknow n unknown Clinic s_volume_in_ L Primary Serum_or_Pla Care & sma Ancillary [facility] eosinophil_ unknown 0.0 10 unknown _285 unknown unknown Clinic count_blood 3/UL Primary [facility] anion_gap_s unknown 11.0 unknown _279 unknown unknown Clinic joanne [facility] mean_platel unknown 10.4 unknown fL _2784 unknown unknown Clinic et_volume Primary [facility] basophil_co unknown 0.0 10 unknown _2427 unknown unknown Clinic unt_blood 3/UL Primary [facility] monocyte_co unknown 0.5 10 unknown _2422 unknown unknown Clinic unt_blood 3/UL Primary [facility] lymphocyte_ unknown 0.8 10 unknown _2420 unknown unknown Clinic count_blood 3/UL Primary [facility] neutrophil_ unknown 11.6 10 unknown _2418 unknow n unknown Clinic count_blood 3/UL [facility] Glucose_Mas unknown 200 unknown mg/dL _2345-7 unknow n unknown Clinic s_volume_in_ Primary Serum_or_Pla Care & sma Ancillary [facility] Creatinine_ unknown 1.0 unknown mg/dL _2160-0 unknow n unknown Clinic Mass_volume_ Primary in_Serum_or_ Care & Plasma [facility] Chloride_Mo unknown 103 unknown mmol/ _2075-0 unknow n unknown Clinic les_volume_i L Primary n_Serum_or_P Care & lasma Ancillary [facility] carbon_diox unknown 28 unknown mmol/ _8-9 unknow n unknown Clinic ide_serum_to L Primary dale [facility] Calcium_Mol unknown 9.3 unknown mg/dL _1999-8 unknow n unknown Clinic es_volume_in Primary _Serum_or_Pl Care & asma Ancillary [facility] Anion_gap_4 unknown 11.0 unknown _1863-0 unknow n unknown Clinic _in_Serum_or Primary _Plasma [facility] creatinine_ unknown 1.0 unknown mg/dL _18 unknown unknown Clinic serum Primary [facility] mean_corpus unknown 29.2 unknown g/dL _17029 unknown unknown Clinic cular_hemogl Primary obin_concent Care & ration_rbc [facility]illary [facility] sodium_seru unknown 142 unknown mmol/ _159 unknown unknown Clinic m L [facility] chloride_se unknown 103 unknown mmol/ _13 unknown unknown Clinic rum L Primary [facility] calcium_ser unknown 9.3 unknown mg/dL _11 unknown unknown Clinic um Primary [facility] mean_corpus unknown 25.4 unknown pg _1031 unknown unknown Clinic cular_hemogl Primary obin_RBC [facility] red_blood_c unknown 14.8 unknown % _1030 unknown unknown Clinic ell_distribu Primary tion_width [facility] T unknown 12.9 X10 unknown WBC unknown u nknown Clinic 3/UL Primary [facility] T unknown 14.8 unknown % RDW unknown [facility] Primary [facility] T unknown 3.27 10 unknown RBC unknown un known Clinic 6/UL Primary [facility] T unknown 362 10 unknown PLT unknown unk [facility] Clinic 3/UL Primary [facility] NEUTROPHILS unknown 11.6 10 unknown NE_ unknow n unknown Clinic _AUTO_ 3/UL Primary [facility] T unknown 11.6 10 unknown NEUT_AUTO_ unknown unknown Clinic 3/UL [facility] T unknown 142 unknown mmol/ NA unknown unk now Clinic L [facility] T unknown 10.4 unknown fL MPV unknown [facility] MONOCYTES_A unknown 0.5 10 unknown MO_ unknown unknown Clinic UTO_ 3/UL Primary [facility] T unknown 0.5 10 unknown MONO_AUTO_ unknown unknown Clinic 3/UL [facility] T unknown 86.9 unknown fL MCV unknown [facility] T unknown 29.2 unknown g/dL MCHC unknown [facility] T unknown 25.4 unknown pg MCH unknown [facility] LYMPHOCYTES unknown 0.8 10 unknown LY_ unknown unknown Clinic _AUTO_ 3/UL Primary [facility] T unknown 0.8 10 unknown LYMPH_AUTO_ unknown unknown Clinic 3/UL Primary [facility] T unknown 5.2 unknown meq/L K unknown [facility] T unknown 8.3 unknown g/dL HGB unknown [facility] T unknown 28.4 unknown % HCT unknown [facility] T unknown 200 unknown mg/dL GLU unknown [facility] T unknown 56 unknown mL/mi GFR_-_MDRD unknown unknown Clinic n [facility] GFR_-_MDRD unknown 56 unknown mL/mi GFR unknown unknown Clinic n [facility] T unknown 11.0 unknown GAP unknown [facility] EOSINOPHILS unknown 0.0 10 unknown EO_ unknown unknown Clinic _AUTO_ 3/UL Primary [facility] T unknown 0.0 10 unknown EOS_AUTO_ unknown unknown Clinic 3/UL Primary [facility] T unknown 1.0 unknown mg/dL CREAT unknown [facility] T unknown 28 unknown mmol/ CO2 unknown [facility] L Primary [facility] T unknown 103 unknown mmol/ CL unknown unk nown Clinic L Primary [facility] T unknown 9.3 unknown mg/dL CA unknown [facility] T unknown 39 unknown mg/dL BUN unknown [facility] BASOPHILS_A unknown 0.0 10 unknown BA_ unknown unknown Clinic UTO_ 3/UL Primary [facility] T unknown 0.0 10 unknown BASO_AUTO_ unknown unknown Clinic 3/UL Primary [facility] platelet_co unknown NORMAL unknown _9317-9 unknow n unknown Clinic unt_estimate (130-450,0 Primary 00) [facility] urea_nitrog unknown 35 unknown mg/dL _9 unknown unknown Clinic en_blood Primary [facility] urea_nitrog unknown 32 unknown mg/dL _9 unknown unknown Clinic en_blood Primary [facility] Erythrocyte unknown 3.63 10 unknown _789-8 unknow n unknown Clinic s_volume_in_ 6/UL Primary Blood_by_Aut Care & omated_count Ancillary Services [facility] Erythrocyte unknown 15.0 unknown % _788-0 unknown unknown Clinic _distributio Primary n_width_Rati Care & o_by_Automat Ancillary ed_count Services [facility] MCV_Entitic unknown 84.3 unknown fL _787-2 unknown unknown Clinic _volume_by_A Primary utomated_cou Care & nt Ancillary Services [facility] MCH_Entitic unknown 25.1 unknown pg _785-6 unknown unknown Clinic _mass_by_Aut Primary omated_count [facility] Platelets_v unknown 212 10 unknown _777-3 unknown unknown Clinic olume_in_Blo 3/UL Primary od_by_Automa Care & ted_count Ancillary Services [facility] Platelet_me unknown 10.8 unknown fL _776-5 unknown unknown Clinic an_volume_En Primary titic_volume Care & _in_Blood_by Ancillary _[facility] neutrophil_ unknown 10.0 10 unknown _752-6 unknow n unknown Clinic count_blood 3/UL Primary [facility] monocyte_co unknown 0.1 10 unknown _743-5 unknown unknown Clinic unt_blood 3/UL Primary [facility] lymphocyte_ unknown 0.6 10 unknown _732-8 unknown unknown Clinic count_blood 3/UL Primary [facility] Hemoglobin_ unknown 9.1 unknown g/dL _718-7 unknown unknown Clinic Mass_volume_ Primary in_Blood [facility] eosinophil_ unknown 0.0 10 unknown _712-0 unknown unknown Clinic count_blood 3/UL Primary [facility] Basophils_v unknown 0.0 10 unknown _705-4 unknown unknown Clinic olume_in_Blo 3/UL Primary od_by_Manual Care & _count Ancillary Services [facility] leukocyte_c unknown 10.7 X10 unknown _68 unkno wn unknown Clinic ount_blood 3/UL Primary [facility] erythrocyte unknown 3.63 10 unknown _67 unknow n unknown Clinic _RBC_count 6/UL Primary [facility] Leukocytes_ unknown 10.7 X10 unknown _6690-2 unkn own unknown Clinic volume_in_Bl 3/UL Primary ood_by_Autom Care & ated_count Ancillary Services [facility] Glomerular_ unknown 45 unknown mL/mi _66455 unknown unknown Clinic Filtration_r n Primary ate [facility] Glomerular_ unknown 38 unknown mL/mi _66455 unknown unknown Clinic Filtration_r n Primary ate [facility] platelet_co unknown 212 10 unknown _66 unknown unknown Clinic unt 3/UL Primary [facility] hemoglobin_ unknown 9.1 unknown g/dL _65 unknown unknown Clinic blood Primary [facility] hematocrit_ unknown 30.6 unknown % _64 unknown unknown Clinic blood Primary [facility] potassium_b unknown 5.6 unknown meq/L _6298-4 unknow n unknown Clinic lood Primary [facility] potassium_b unknown 5.5 unknown meq/L _6298-4 unknow n unknown Clinic lood Primary [facility] Glomerular_f unknown 45 unknown mL/mi _48642-3 unkno wn unknown Clinic iltration_ra n Primary te_1.73_sq_M Care & .predicted_a Ancillary mong_non-ida Services cks_Volume_R [facility] ate_Area_in_ Serum_Plasma _or_Blood_by _Creatinine- based_formul a_MDRD_ [facility] Glomerular_f unknown 38 unknown mL/mi _48642-3 unkno wn unknown Clinic iltration_ra n Primary te_1.73_sq_M Care & .predicted_a Ancillary mong_non-ida Services cks_Volume_R [facility] ate_Area_in_ Serum_Plasma _or_Blood_by _Creatinine- based_formul a_MDRD_ [facility]In Hemoglobin_ unknown 6.6 unknown % _4548-4 unknow n unknown Clinic A1c_Hemoglob Primary in_total_in_ Care & Blood_-_ Ancillary Services [facility] Hematocrit_ unknown 30.6 unknown % _4544-3 unknow n unknown Clinic Volume_Fract Primary ion_of_Blood Care & _by_Automate Ancillary d_count Services [facility] carbon_diox unknown 27 unknown mmol/ _3962 unknown unknown Clinic ide_serum_to L Primary dale Care & Ancillary Services [facility] blood_gluco unknown 281 unknown mg/dL _3565 unknown unknown Clinic se Primary [facility] blood_gluco unknown 227 unknown mg/dL _3565 unknown unknown Clinic se Primary [facility] potassium_b unknown 5.6 unknown meq/L _3483 unknown unknown Clinic lood Primary [facility] potassium_b unknown 5.5 unknown meq/L _3483 unknown unknown Clinic lood Primary [facility] magnesium_s unknown 2.5 unknown mg/dL _32 unknown unknown Clinic joanne Primary [facility] mean_corpus unknown 84.3 unknown fL _315 unknown unknown Clinic cular_volume Primary _RBC [facility] platelet_co unknown NORMAL unknown _3109 unknown unknown Clinic unt_estimate (130-450,0 Primary 00) [facility] Urea_nitrog unknown 35 unknown mg/dL _3094-0 unknow n unknown Clinic en_Mass_volu Primary me_in_Serum_ Care & or_Plasma Ancillary Services [facility] Urea_nitrog unknown 32 unknown mg/dL _3094-0 unknow n unknown Clinic en_Mass_volu Primary me_in_Serum_ Care & or_Plasma Ancillary Services [facility] Thyrotropin unknown 1.97 unknown u[iU] _3016-3 unknow n unknown Clinic _Units_volum /mL Primary e_in_Serum_o Care & r_Plasma Ancillary Services [facility] Sodium_Mole unknown 137 unknown mmol/ _2951-2 unknow n unknown Clinic s_volume_in_ L Primary Serum_or_Pla Care & sma Ancillary Services [facility] Sodium_Mole unknown 136 unknown mmol/ _2951-2 unknow n unknown Clinic s_volume_in_ L Primary Serum_or_Pla Care & sma Ancillary Services [facility] thyroid_sti unknown 1.97 unknown u[iU] _29 unknown unknown Clinic mulating_hor /mL Primary mone_serum Care & Ancillary Services [facility] eosinophil_ unknown 0.0 10 unknown _285 unknown unknown Clinic count_blood 3/UL Primary [facility] hemoglobin_ unknown 6.6 unknown % _28 unknown unknown Clinic A1C_blood_as Primary _of_total_he Care & moglobin Ancillary Services [facility] anion_gap_s unknown 11.0 unknown _279 unknown unknown Clinic joanne Primary [facility] anion_gap_s unknown 10.0 unknown _279 unknown unknown Clinic joanne Primary [facility] mean_platel unknown 10.8 unknown fL _2784 unknown unknown Clinic et_volume Primary [facility]illary Services [facility] Glucose_mea unknown 143 unknown mg/dL _27353-2 unkno wn unknown Clinic n_value_Mass Primary _volume_in_B Care & lood_Estimat Ancillary ed_from_glyc Services ated_hemoglo [facility] Magnesium_M unknown 2.5 unknown mg/dL _2601-3 unknow n unknown Clinic oles_volume_ Primary in_Serum_or_ Care & Plasma Ancillary Services [facility] basophil_co unknown 0.0 10 unknown _2427 unknown unknown Clinic unt_blood 3/UL Primary [facility] monocyte_co unknown 0.1 10 unknown _2422 unknown unknown Clinic unt_blood 3/UL Primary [facility] lymphocyte_ unknown 0.6 10 unknown _2420 unknown unknown Clinic count_blood 3/UL Primary [facility] neutrophil_ unknown 10.0 10 unknown _2418 unknow n unknown Clinic count_blood 3/UL Primary [facility] Glucose_Mas unknown 281 unknown mg/dL _2345-7 unknow n unknown Clinic s_volume_in_ Primary Serum_or_Pla Care & sma Ancillary Services [facility] Glucose_Mas unknown 227 unknown mg/dL _2345-7 unknow n unknown Clinic s_volume_in_ Primary Serum_or_Pla Care & sma Ancillary Services [facility] Creatinine_ unknown 1.4 unknown mg/dL _2160-0 unknow n unknown Clinic Mass_volume_ Primary in_Serum_or_ Care & Plasma Ancillary Services [facility] Creatinine_ unknown 1.2 unknown mg/dL _2160-0 unknow n unknown Clinic Mass_volume_ Primary in_Serum_or_ Care & Plasma Ancillary Services [facility] Chloride_Mo unknown 99 unknown mmol/ _5-0 unknow n unknown Clinic les_volume_i L Primary n_Serum_or_P Care & lasma Ancillary Services [facility] carbon_diox unknown 27 unknown mmol/ _8-9 unknow n unknown Clinic ide_serum_to L Primary dale Care & Ancillary Services [facility] Calcium_Mol unknown 8.9 unknown mg/dL _1999-8 unknow n unknown Clinic es_volume_in Primary _Serum_or_Pl Care & asma Ancillary Services [facility] Anion_gap_4 unknown 11.0 unknown _1863-0 unknow n unknown Clinic _in_Serum_or Primary _Plasma Care [facility] Anc[facility] Services [facility] Anion_gap_4 unknown 10.0 unknown _1863-0 unknow n unknown Clinic _in_Serum_or Primary _Plasma [facility] Estimated_A unknown 143 unknown mg/dL _180195 unknow n unknown Clinic verage_Gluco Primary se [facility] creatinine_ unknown 1.4 unknown mg/dL _18 unknown unknown Clinic serum Primary [facility] creatinine_ unknown 1.2 unknown mg/dL _18 unknown unknown Clinic serum Primary [facility] mean_corpus unknown 29.7 unknown g/dL _17029 unknown unknown Clinic cular_hemogl Primary obin_concent Care & ration_rbc Ancillary Services [facility] sodium_seru unknown 137 unknown mmol/ _159 unknown unknown Clinic m L Primary [facility] Services [facility] sodium_seru unknown 136 unknown mmol/ _159 unknown unknown Clinic m L Primary [facility] chloride_se unknown 99 unknown mmol/ _13 unknown unknown Clinic rum L Primary [facility] Services [facility] calcium_ser unknown 8.9 unknown mg/dL _11 unknown unknown Clinic um Primary [facility] mean_corpus unknown 25.1 unknown pg _1031 unknown unknown Clinic cular_hemogl Primary obin_RBC Care & Ancillary Services [facility] red_blood_c unknown 15.0 unknown % _1030 unknown unknown Clinic ell_distribu Primary tion_width Care & Ancillary Services [facility] Slide_Inter unknown Indicated unknown _102992 unk nown unknown Clinic pretation Primary [facility] T unknown 10.7 X10 unknown WBC unknown u nknown Clinic 3/UL Primary [facility] T unknown 1.97 unknown u[iU] TSH unknown unk nown Clinic /mL Primary [facility] T unknown Indicated unknown SLIDE_REVIE unkn own unknown Clinic W_ [facility] SLIDE_REVIE unknown Indicated unknown SLIDEREV_ u nknown unknown Clinic W_ Primary [facility] T unknown 15.0 unknown % RDW unknown unk nown Clinic Primary [facility] T unknown 3.63 10 unknown RBC unknown un known Clinic 6/UL Primary [facility] T unknown NORMAL unknown PLT_EST unknown un known Clinic (130-450,0 Primary 00) Care & Anc[facility] Services [facility] PLATELET_ES unknown NORMAL unknown PLTEST unknown unknown Clinic [facility]130-450[facility]0 Primary L 00) Care & Ancillary Services [facility] T unknown 212 10 unknown PLT unknown [facility] 3/UL Primary Care & Ancillary Services [facility] NEUTROPHILS unknown 10.0 10 unknown NE_ unknow n unknown Clinic _AUTO_ 3/UL Primary [facility] T unknown 10.0 10 unknown NEUT_AUTO_ unknown unknown Clinic 3/UL Primary [facility] T unknown 137 unknown mmol/ NA unknown [facility] L Primary [facility] T unknown 136 unknown mmol/ NA unknown [facility] L Primary [facility] T unknown 10.8 unknown fL MPV unknown [facility] MONOCYTES_A unknown 0.1 10 unknown MO_ unknown unknown Clinic NDO_ 3/UL Primary [facility] T unknown 0.1 10 unknown MONO_AUTO_ unknown unknown Clinic 3/ Primary [facility] & Anc[facility] Services [facility] T unknown 2.5 unknown mg/dL MG unknown [facility] Primary [facility] T unknown 84.3 unknown fL MCV unknown [facility] T unknown 29.7 unknown g/dL MCHC unknown [facility] T unknown 25.1 unknown pg MCH unknown [facility] LYMPHOCYTES unknown 0.6 10 unknown LY_ unknown unknown Clinic _AUTO_ 3/UL Primary [facility] Services [facility] T unknown 0.6 10 unknown LYMPH_AUTO_ unknown unknown [facility] 3/ Primary Care & Ancillary Services [facility] T unknown 5.6 unknown meq/L K unknown [facility] Primary [facility] T unknown 5.5 unknown meq/L K unknown [facility] T unknown 9.1 unknown g/dL HGB unknown [facility] T unknown 30.6 unknown % HCT unknown [facility] T unknown 281 unknown mg/dL GLU unknown [facility] [facility] unknown 227 unknown mg/dL GLU unknown [facility] unknown 45 unknown mL/mi GFR_-_MDRD unknown unknown Clinic n [facility] unknown 38 unknown mL/mi GFR_-_MDRD unknown unknown Clinic n [facility] GFR_-_MDRD unknown 45 unknown mL/mi GFR unknown unknown Clinic n [facility] GFR_-_MDRD unknown 38 unknown mL/mi GFR unknown unknown Clinic n [facility] unknown 11.0 unknown GAP unknown [facility] unknown 10.0 unknown GAP unknown [facility] unknown 143 unknown mg/dL EST.AVG.GLU unknown unknown Clinic C [facility] EOSINOPHILS unknown 0.0 10 unknown EO_ unknown unknown Clinic _AUTO_ 3/UL [facility] unknown 0.0 10 unknown EOS_AUTO_ unknown unknown Clinic 3/UL [facility] ESTIMATED_A unknown 143 unknown mg/dL EAG unknown unknown Clinic VERAGE_GLUCO Primary SE [facility] unknown 1.4 unknown mg/dL CREAT unknown [facility] unknown 1.2 unknown mg/dL CREAT unknown [facility] unknown 27 unknown mmol/ CO2 unknown [facility] L [facility] unknown 99 unknown mmol/ CL unknown [facility] L [facility] unknown 8.9 unknown mg/dL CA unknown [facility] unknown 35 unknown mg/dL BUN unknown [facility] unknown 32 unknown mg/dL BUN unknown [facility] BASOPHILS_A unknown 0.0 10 unknown BA_ unknown unknown Clinic UTO_ 3/UL [facility] unknown 0.0 10 unknown BASO_AUTO_ unknown unknown Clinic 3/UL [facility] unknown 6.6 unknown % A1c_ unknown unk nown Clinic [facility] HEMOGLOBIN_ unknown 6.6 unknown % A1c unknown unknown Clinic A1c_ [facility] unknown 6 unknown % _FE_SAT unknown un known Clinic [facility] urea_nitrog unknown 30 unknown mg/dL _9 unknown unknown Clinic en_blood [facility] Erythrocyte unknown 3.48 10 unknown _789-8 unknow n unknown Clinic s_volume_in_ 6/UL Primary Blood_by_Aut Care & omated_count [facility]illary [facility] Erythrocyte unknown 14.9 unknown % _788-0 unknown unknown Clinic _distributio Primary n_width_Rati Care & o_by_Automat Ancillary ed_count Services [facility] MCV_Entitic unknown 85.6 unknown fL _787-2 unknown unknown Clinic _volume_by_A Primary utomated_cou Care & nt [facility]illary [facility] MCH_Entitic unknown 25.3 unknown pg _785-6 unknown unknown Clinic _mass_by_Aut Primary omated_count Care & [facility]illary [facility] Platelets_v unknown 342 10 unknown _777-3 unknown unknown Clinic olume_in_Blo 3/UL Primary od_by_Automa Care & ted_count [facility]illary [facility] Platelet_me unknown 10.0 unknown fL _776-5 unknown unknown Clinic an_volume_En Primary titic_volume Care & _in_Blood_by Ancillary _[facility] neutrophil_ unknown 8.9 10 unknown _752-6 unknown unknown Clinic count_blood 3/UL [facility] monocyte_co unknown 0.7 10 unknown _743-5 unknown unknown Clinic unt_blood 3/UL [facility] lymphocyte_ unknown 1.4 10 unknown _732-8 unknown unknown Clinic count_blood 3/UL [facility] Hemoglobin_ unknown 8.8 unknown g/dL _718-7 unknown unknown Clinic Mass_volume_ Primary in_Blood [facility] & [facility] eosinophil_ unknown 0.3 10 unknown _712-0 unknown unknown Clinic count_blood 3/UL [facility] Basophils_v unknown 0.0 10 unknown _705-4 unknown unknown Clinic olume_in_Blo 3/UL Primary od_by_Manual Care & _count Ancillary Services [facility] leukocyte_c unknown 11.4 X10 unknown _68 unkno wn unknown Clinic ount_blood 3/UL [facility] erythrocyte unknown 3.48 10 unknown _67 unknow n unknown Clinic _RBC_count 6/UL [facility] Leukocytes_ unknown 11.4 X10 unknown _6690-2 unkn own unknown Clinic volume_in_Bl 3/UL Primary ood_by_Autom Care & ated_count [facility]illary [facility] Glomerular_ unknown 45 unknown mL/mi _66455 unknown unknown Clinic Filtration_r n Primary ate [facility] platelet_co unknown 342 10 unknown _66 unknown unknown Clinic unt 3/UL [facility] hemoglobin_ unknown 8.8 unknown g/dL _65 unknown unknown Clinic blood [facility] hematocrit_ unknown 29.8 unknown % _64 unknown unknown Clinic blood [facility] potassium_b unknown 4.9 unknown meq/L _6298-4 unknow n unknown Clinic lood [facility] Glomerular_f unknown 45 unknown mL/mi _48642-3 unkno wn unknown Clinic iltration_ra n Primary te_1.73_sq_M Care & .predicted_a Ancillary mong_non-ida Services cks_Volume_R [facility] ate_Area_in_ Serum_Plasma _or_Blood_by _Creatinine- based_formul a_MDRD_ [facility] Hematocrit_ unknown 29.8 unknown % _4544-3 unknow n unknown Clinic Volume_Fract Primary ion_of_Blood Care & _by_Automate Ancillary d_count Services [facility] bilirubin_s unknown 0.5 unknown mg/dL _43 unknown unknown Clinic erum_total [facility] alanine_ami unknown 13 unknown U/L _40 unknown unknown Clinic notransferas Primary e_SGPT_serum [facility] carbon_diox unknown 29 unknown mmol/ _3962 unknown unknown Clinic ide_serum_to L Primary dale [facility] aspartate_a unknown 13 unknown U/L _39 unknown unknown Clinic minotransfer Primary ase_SGOT_ser Care & um [facility]illary [facility] protein_tot unknown 7.9 unknown g/dL _36 unknown unknown Clinic al_serum [facility] blood_gluco unknown 144 unknown mg/dL _3565 unknown unknown Clinic se [facility] potassium_b unknown 4.9 unknown meq/L _3483 unknown unknown Clinic lood [facility] magnesium_s unknown 2.3 unknown mg/dL _32 unknown unknown Clinic joanne [facility] mean_corpus unknown 85.6 unknown fL _315 unknown unknown Clinic cular_volume Primary _RBC [facility] transferrin unknown 224 unknown mg/dL _3127 unknown unknown Clinic _serum [facility] Urea_nitrog unknown 30 unknown mg/dL _3094-0 unknow n unknown Clinic en_Mass_volu Primary me_in_Serum_ Care & or_Plasma [facility]illary [facility] globulin_se unknown 4.1 unknown _3059 unknown unknown Clinic rum [facility] transferrin unknown 224 unknown mg/dL _3034-6 unknow n unknown Clinic _serum [facility] alkaline_ph unknown 84 unknown U/L _3 unknown unknown Clinic osphatase_se Primary rum [facility] Sodium_Mole unknown 140 unknown mmol/ _2951-2 unknow n unknown Clinic s_volume_in_ L Primary Serum_or_Pla Care & sma Ancillary Services [facility] Protein_Mas unknown 7.9 unknown g/dL _2885-2 unknow n unknown Clinic s_volume_in_ Primary Serum_or_Pla Care & sma Ancillary Services [facility] eosinophil_ unknown 0.3 10 unknown _285 unknown unknown Clinic count_blood 3/UL [facility] anion_gap_s unknown 9.0 unknown _279 unknown unknown Clinic joanne [facility] mean_platel unknown 10.0 unknown fL _2784 unknown unknown Clinic et_volume [facility] Magnesium_M unknown 2.3 unknown mg/dL _2601-3 unknow n unknown Clinic oles_volume_ Primary in_Serum_or_ Care & Plasma [facility]illary [facility] Iron_satura unknown 6 unknown % _2502-3 unknow n unknown Clinic tion_Mass_Fr Primary action_in_Se Care & rum_or_Plasm Ancillary a Services [facility] Iron_bindin unknown 314 unknown ug/dL _2500-7 unknow n unknown Clinic g_capacity_M Primary ass_volume_i Care & n_Serum_or_P Ancillary lasma Services [facility] Iron_Mass_v unknown 18 unknown ug/dL _2498-4 unknow n unknown Clinic olume_in_Ser Primary um_or_Plasma Care & Ancillary Services [facility] iron_satura unknown 6 unknown % _2455 unknown unknown Clinic tion_percent Primary _serum Care & [facility]illary Services [facility] basophil_co unknown 0.0 10 unknown _2427 unknown unknown Clinic unt_blood 3/UL [facility] monocyte_co unknown 0.7 10 unknown _2422 unknown unknown Clinic unt_blood 3/UL [facility] lymphocyte_ unknown 1.4 10 unknown _2420 unknown unknown Clinic count_blood 3/UL [facility] neutrophil_ unknown 8.9 10 unknown _2418 unknown unknown Clinic count_blood 3/UL [facility] B-type_natr unknown 111 unknown pg/mL _23708 unknown unknown Clinic iuretic_pept Primary ide_brain_na Care & triuretic_pe Ancillary ptide_ Services [facility] Glucose_Mas unknown 144 unknown mg/dL _2345-7 unknow n unknown Clinic s_volume_in_ Primary Serum_or_Pla Care & sma Ancillary Services [facility] Globulin_Ma unknown 4.1 unknown _2336-6 unknow n unknown Clinic ss_volume_in Primary _Serum Care & [facility] Creatinine_ unknown 1.2 unknown mg/dL _2160-0 unknow n unknown Clinic Mass_volume_ Primary in_Serum_or_ Care & Plasma Ancillary [facility] Chloride_Mo unknown 102 unknown mmol/ _5-0 unknow n unknown Clinic les_volume_i L Primary n_Serum_or_P Care & lasma Ancillary Services [facility] carbon_diox unknown 29 unknown mmol/ _2027- unknow n unknown Clinic ide_serum_to L Primary dale Care & [facility]illary [facility] Calcium_Mol unknown 9.0 unknown mg/dL _1999- unknow n unknown Clinic es_volume_in Primary _Serum_or_Pl Care & asma Ancillary Services [facility] albumin_ser unknown 3.8 unknown g/dL _2 unknown unknown Clinic um [facility] Bilirubin.t unknown 0.5 unknown mg/dL _1974- unknow n unknown Clinic otal_Mass_vo Primary lume_in_Seru Care & m_or_Plasma [facility]illary [facility] Aspartate_a unknown 13 unknown U/L _1920-8 unknow n unknown Clinic minotransfer Primary ase_Enzymati Care & c_activity_v Ancillary olume_in_Ser Services um_or_Plasma [facility] Anion_gap_4 unknown 9.0 unknown _1863-0 unknow n unknown Clinic _in_Serum_or Primary _Plasma [facility] & [facility] creatinine_ unknown 1.2 unknown mg/dL _18 unknown unknown Clinic serum [facility] Alkaline_ph unknown 84 unknown U/L _1783-0 unknow n unknown Clinic osphatase_En Primary zymatic_acti Care & vity_volume_ Ancillary in_Blood Services [facility] Albumin_Glo unknown 0.9 unknown _1759-0 unknow n unknown Clinic bulin_Mass_R Primary atio_in_Seru Care & m_or_Plasma Ancillary Services [facility] Albumin_Mas unknown 3.8 unknown g/dL _1751-7 unknow n unknown Clinic s_volume_in_ Primary Serum_or_Pla Care & sma Ancillary Services [facility] Alanine_ami unknown 13 unknown U/L _1742-6 unknow n unknown Clinic notransferas Primary e_Enzymatic_ Care & activity_vol Ancillary ume_in_Serum Services _or_Plasma [facility] mean_corpus unknown 29.5 unknown g/dL _17029 unknown unknown Clinic cular_hemogl Primary obin_concent Care & ration_rbc [facility]illary [facility] sodium_seru unknown 140 unknown mmol/ _159 unknown unknown Clinic m L [facility] iron_serum unknown 18 unknown ug/dL _151 unknown unknown Clinic [facility] albumin_glo unknown 0.9 unknown _146 unknown unknown Clinic bulin_ratio_ Primary serum [facility] & [facility]illary [facility] chloride_se unknown 102 unknown mmol/ _13 unknown unknown Clinic rum L [facility] calcium_ser unknown 9.0 unknown mg/dL _11 unknown unknown Clinic [facility] iron_bindin unknown 314 unknown ug/dL _1032 unknown unknown Clinic g_capacity_t Primary otal [facility] & [facility] mean_corpus unknown 25.3 unknown pg _1031 unknown unknown Clinic cular_hemogl Primary obin_RBC [facility] red_blood_c unknown 14.9 unknown % _1030 unknown unknown Clinic ell_distribu Primary tion_width Care & [facility]illary Services [facility] T unknown 11.4 X10 unknown WBC unknown u nknown [facility] 3/UL [facility] unknown 224 unknown mg/dL TRANSFERRIN unknown unknown Clinic [facility] TRANSFERRIN unknown 224 unknown mg/dL TRANS unknown unknown Clinic [facility] unknown 0.5 unknown mg/dL TOTAL_BILI unknown unknown Clinic [facility] unknown 314 unknown ug/dL TIBC unknown [facility] unknown 14.9 unknown % RDW unknown [facility] T unknown 3.48 10 unknown RBC unknown un known Clinic 6/UL [facility] TOTAL_PROTE unknown 7.9 unknown g/dL PRO_TOTAL unkn own unknown Clinic IN [facility] unknown 7.9 unknown g/dL PRO_TOTAL unknown unknown Clinic [facility] unknown 342 10 unknown PLT unknown [facility] 3/UL [facility] NEUTROPHILS unknown 8.9 10 unknown NE_ unknown unknown Clinic _AUTO_ 3/UL [facility] T unknown 8.9 10 unknown NEUT_AUTO_ unknown unknown Clinic 3/ [facility] T unknown 140 unknown mmol/ NA unknown [facility] L [facility] T unknown 10.0 unknown fL MPV unknown [facility] MONOCYTES_A unknown 0.7 10 unknown MO_ unknown unknown Clinic UTO_ 3/ [facility] unknown 0.7 10 unknown MONO_AUTO_ unknown unknown Clinic 3/ [facility] unknown 2.3 unknown mg/dL MG unknown [facility] T unknown 85.6 unknown fL MCV unknown [facility] T unknown 29.5 unknown g/dL MCHC unknown [facility] T unknown 25.3 unknown pg MCH unknown [facility] LYMPHOCYTES unknown 1.4 10 unknown LY_ unknown unknown Clinic _AUTO_ 3/ [facility] T unknown 1.4 10 unknown LYMPH_AUTO_ unknown unknown Clinic 3/ [facility] T unknown 4.9 unknown meq/L K unknown [facility] unknown 8.8 unknown g/dL HGB unknown [facility] T unknown 29.8 unknown % HCT unknown [facility] unknown 144 unknown mg/dL GLU unknown unk nown Clinic [facility] T unknown 4.1 unknown GLOB unknown [facility] T unknown 45 unknown mL/mi GFR_-_MDRD unknown unknown Clinic n [facility] GFR_-_MDRD unknown 45 unknown mL/mi GFR unknown unknown Clinic n [facility] T unknown 9.0 unknown GAP unknown [facility] _IRON_SATUR unknown 6 unknown % FESAT_ unknown unknown Clinic ATION [facility] T unknown 18 unknown ug/dL FE unknown [facility] EOSINOPHILS unknown 0.3 10 unknown EO_ unknown unknown Clinic _AUTO_ 3/UL [facility] T unknown 0.3 10 unknown EOS_AUTO_ unknown unknown Clinic 3/UL [facility] T unknown 1.2 unknown mg/dL CREAT unknown [facility] T unknown 29 unknown mmol/ CO2 unknown [facility] L [facility] T unknown 102 unknown mmol/ CL unknown [facility] L [facility] T unknown 9.0 unknown mg/dL CA unknown [facility] T unknown 30 unknown mg/dL BUN unknown [facility] T unknown 111 unknown pg/mL BNP unknown [facility] BILIRUBIN_T unknown 0.5 unknown mg/dL BILIT unknown unknown Clinic OTAL [facility] BASOPHILS_A unknown 0.0 10 unknown BA_ unknown unknown Clinic UTO_ 3/UL [facility] T unknown 0.0 10 unknown BASO_AUTO_ unknown unknown Clinic 3/UL [facility] T unknown 0.9 unknown A_G_RATIO unknown unknown Clinic [facility] T unknown 13 unknown U/L AST unknown unk nown Clinic [facility] T unknown 13 unknown U/L ALT_SGPT_ unknown unknown Clinic [facility] ALT_ALANINE unknown 13 unknown U/L ALT unknown unknown Clinic _AMINOTRANSF Primary ERASE Care & Ancillary Services [facility] ALKALINE_PH unknown 84 unknown U/L ALP unknown unknown Clinic OSPHATASE [facility] T unknown 84 unknown U/L ALK_PHOS unknown u nknown Clinic [facility] T unknown 3.8 unknown g/dL ALB unknown unk nown Clinic [facility] ALBUMIN_GLO unknown 0.9 unknown AGRATIO unknow n unknown Clinic BULIN_RATIO [facility] urea_nitrog unknown 38 unknown mg/dL _9 unknown unknown Clinic en_blood [facility] Erythrocyte unknown 3.55 10 unknown _789-8 unknow n unknown Clinic s_volume_in_ 6/UL Primary Blood_by_Aut Care & omated_count Ancillary Services [facility] Erythrocyte unknown 15.0 unknown % _788-0 unknown unknown Clinic _distributio Primary n_width_Rati Care & o_by_Automat Ancillary ed_count Services [facility] MCV_Entitic unknown 86.5 unknown fL _787-2 unknown unknown Clinic _volume_by_A Primary utomated_cou Care & nt Ancillary Services [facility] MCH_Entitic unknown 25.4 unknown pg _785-6 unknown unknown Clinic _mass_by_Aut Primary omated_count Care & Ancillary Services [facility] Platelets_v unknown 357 10 unknown _777-3 unknown unknown Clinic olume_in_Blo 3/UL Primary od_by_Automa Care & ted_count Ancillary Services [facility] Platelet_me unknown 10.5 unknown fL _776-5 unknown unknown Clinic an_volume_En Primary titic_volume Care & _in_Blood_by Ancillary _[facility] neutrophil_ unknown 8.2 10 unknown _752-6 unknown unknown Clinic count_blood 3/UL [facility] monocyte_co unknown 0.6 10 unknown _743-5 unknown unknown Clinic unt_blood 3/UL [facility] lymphocyte_ unknown 1.2 10 unknown _732-8 unknown unknown Clinic count_blood 3/UL [facility] Hemoglobin_ unknown 9.0 unknown g/dL _718-7 unknown unknown Clinic Mass_volume_ Primary in_Blood Care & Ancillary Services [facility] eosinophil_ unknown 0.4 10 unknown _712-0 unknown unknown Clinic count_blood 3/UL [facility] Basophils_v unknown 0.0 10 unknown _705-4 unknown unknown Clinic olume_in_Blo 3/UL Primary od_by_Manual Care & _count Ancillary Services [facility] leukocyte_c unknown 10.5 X10 unknown _68 unkno wn unknown Clinic ount_blood 3/UL [facility] erythrocyte unknown 3.55 10 unknown _67 unknow n unknown Clinic _RBC_count 6/UL [facility] Leukocytes_ unknown 10.5 X10 unknown _6690-2 unkn own unknown Clinic volume_in_Bl 3/UL Primary ood_by_Autom Care & ated_count Ancillary Services [facility] Glomerular_ unknown 41 unknown mL/mi _66455 unknown unknown Clinic Filtration_r n Primary ate Care & Ancillary Services [facility] platelet_co unknown 357 10 unknown _66 unknown unknown Clinic unt 3/UL [facility] hemoglobin_ unknown 9.0 unknown g/dL _65 unknown unknown Clinic blood [facility] hematocrit_ unknown 30.7 unknown % _64 unknown unknown Clinic blood [facility] potassium_b unknown 5.1 unknown meq/L _6298-4 unknow n unknown Clinic lood [facility] Glomerular_f unknown 41 unknown mL/mi _48642-3 unkno wn unknown Clinic iltration_ra n Primary te_1.73_sq_M Care & .predicted_a Ancillary mong_non-ida Services cks_Volume_R [facility] ate_Area_in_ Serum_Plasma _or_Blood_by _Creatinine- based_formul a_MDRD_ Walk-In Hematocrit_ unknown 30.7 unknown % _4544-3 unknow n unknown Clinic Volume_Fract Primary ion_of_Blood Care & _by_Automate Ancillary d_count Services [facility] bilirubin_s unknown 0.6 unknown mg/dL _43 unknown unknown Clinic erum_total Primary Care & Ancillary Services [facility] alanine_ami unknown 10 unknown U/L _40 unknown unknown Clinic notransferas Primary e_SGPT_serum Care & Ancillary Services [facility] carbon_diox unknown 28 unknown mmol/ _3962 unknown unknown Clinic ide_serum_to L Primary dale Care & Ancillary Services [facility] aspartate_a unknown 13 unknown U/L _39 unknown unknown Clinic minotransfer Primary ase_SGOT_ser Care & um Ancillary Services [facility] protein_tot unknown 7.2 unknown g/dL _36 unknown unknown Clinic al_serum Primary [facility] & [facility]illary Services [facility] blood_gluco unknown 137 unknown mg/dL _3565 unknown unknown Clinic se [facility] potassium_b unknown 5.1 unknown meq/L _3483 unknown unknown [facility] lood [facility] mean_corpus unknown 86.5 unknown fL _315 unknown unknown Clinic cular_volume Primary _RBC [facility] Urea_nitrog unknown 38 unknown mg/dL _3094-0 unknow n unknown Clinic en_Mass_volu Primary me_in_Serum_ Care & or_Plasma [facility] globulin_se unknown 3.5 unknown _3059 unknown unknown Clinic rum [facility] alkaline_ph unknown 81 unknown U/L _3 unknown unknown Clinic osphatase_se Primary rum [facility] Sodium_Mole unknown 139 unknown mmol/ _2951-2 unknow n unknown Clinic s_volume_in_ L Primary Serum_or_Pla Care & sma [facility] Protein_Mas unknown 7.2 unknown g/dL _2885-2 unknow n unknown Clinic s_volume_in_ Primary Serum_or_Pla Care [facility] sma [facility] eosinophil_ unknown 0.4 10 unknown _285 unknown unknown Clinic count_blood 3/UL [facility] anion_gap_s unknown 11.0 unknown _279 unknown unknown Clinic joanne [facility] mean_platel unknown 10.5 unknown fL _2784 unknown unknown Clinic et_volume [facility] C-reactive_ unknown 6.3 unknown mg/dL _2704 unknown unknown Clinic protein_seru [facility] m [facility] basophil_co unknown 0.0 10 unknown _2427 unknown unknown Clinic unt_blood 3/UL [facility] monocyte_co unknown 0.6 10 unknown _2422 unknown unknown Clinic unt_blood 3/UL [facility] lymphocyte_ unknown 1.2 10 unknown _2420 unknown unknown Clinic count_blood 3/UL [facility] neutrophil_ unknown 8.2 10 unknown _2418 unknown unknown Clinic count_blood 3/UL [facility] B-type_natr unknown 83 unknown pg/mL _23708 unknown unknown Clinic iuretic_pept Primary ide_brain_na Care & triuretic_pe Ancillary ptide_ Services [facility] Glucose_Mas unknown 137 unknown mg/dL _2345-7 unknow n unknown Clinic s_volume_in_ Primary Serum_or_Pla Care [facility] sma [facility] Globulin_Ma unknown 3.5 unknown _2336-6 unknow n unknown Clinic ss_volume_in Primary _Serum [facility] Creatinine_ unknown 1.3 unknown mg/dL _2160-0 unknow n unknown Clinic Mass_volume_ Primary in_Serum_or_ Care & Plasma [facility] Chloride_Mo unknown 100 unknown mmol/ _2075-0 unknow n unknown Clinic les_volume_i L Primary n_Serum_or_P Care [facility] lasma [facility] carbon_diox unknown 28 unknown mmol/ _8-9 unknow n unknown Clinic ide_serum_to L Primary dale [facility] Calcium_Mol unknown 8.9 unknown mg/dL _1999-8 unknow n unknown Clinic es_volume_in Primary _Serum_or_Pl Care [facility] asma [facility] albumin_ser unknown 3.7 unknown g/dL _2 unknown unknown Clinic um [facility] C_reactive_ unknown 6.3 unknown mg/dL _1987- unknow n unknown Clinic protein_Mass Primary _volume_in_S Care & erum_or_Plas Ancillary ma Services [facility] Bilirubin.t unknown 0.6 unknown mg/dL _1974- unknow n unknown Clinic otal_Mass_vo Primary lume_in_Seru Care & m_or_Plasma [facility] Aspartate_a unknown 13 unknown U/L _1920-8 unknow n unknown Clinic minotransfer Primary ase_Enzymati Care & c_activity_v Ancillary olume_in_Ser Services um_or_Plasma [facility] Anion_gap_4 unknown 11.0 unknown _1863-0 unknow n unknown Clinic _in_Serum_or Primary _Plasma [facility] creatinine_ unknown 1.3 unknown mg/dL _18 unknown unknown Clinic serum [facility] Alkaline_ph unknown 81 unknown U/L _1783-0 unknow n unknown Clinic osphatase_En Primary zymatic_acti Care & vity_volume_ Ancillary in_Blood Services [facility] Albumin_Glo unknown 1.1 unknown _1759-0 unknow n unknown Clinic bulin_Mass_R Primary atio_in_Seru Care & m_or_Plasma [facility] Albumin_Mas unknown 3.7 unknown g/dL _1751-7 unknow n unknown Clinic s_volume_in_ Primary Serum_or_Pla Care [facility] sma [facility] Alanine_ami unknown 10 unknown U/L _1742-6 unknow n unknown Clinic notransferas Primary e_Enzymatic_ Care & activity_vol Ancillary ume_in_Serum Services _or_Plasma [facility] mean_corpus unknown 29.3 unknown g/dL _17029 unknown unknown Clinic cular_hemogl Primary obin_concent Care & ration_rbc [facility] sodium_seru unknown 139 unknown mmol/ _159 unknown unknown Clinic m L [facility] albumin_glo unknown 1.1 unknown _146 unknown unknown Clinic bulin_ratio_ Primary serum [facility] chloride_se unknown 100 unknown mmol/ _13 unknown unknown Clinic rum L [facility] calcium_ser unknown 8.9 unknown mg/dL _11 unknown unknown Clinic um [facility] mean_corpus unknown 25.4 unknown pg _1031 unknown unknown Clinic cular_hemogl Primary obin_RBC [facility] red_blood_c unknown 15.0 unknown % _1030 unknown unknown Clinic ell_distribu Primary tion_width [facility] T unknown 10.5 X10 unknown WBC unknown u nknown Clinic 3/UL [facility] T unknown 0.6 unknown mg/dL TOTAL_BILI unknown unknown [facility] T unknown 15.0 unknown % RDW unknown [facility] T unknown 3.55 10 unknown RBC unknown un known Clinic 6/UL [facility] T unknown 7.2 unknown g/dL PRO_TOTAL unknown unknown [facility] T unknown 357 10 unknown PLT unknown [facility] 3/UL [facility] NEUTROPHILS unknown 8.2 10 unknown NE_ unknown unknown Clinic _AUTO_ 3/UL [facility] T unknown 8.2 10 unknown NEUT_AUTO_ unknown unknown Clinic 3/UL [facility] T unknown 139 unknown mmol/ NA unknown [facility] L [facility] T unknown 10.5 unknown fL MPV unknown [facility] MONOCYTES_A unknown 0.6 10 unknown MO_ unknown unknown Clinic UTO_ 3/UL [facility] T unknown 0.6 10 unknown MONO_AUTO_ unknown unknown Clinic 3/UL [facility] T unknown 86.5 unknown fL MCV unknown [facility] T unknown 29.3 unknown g/dL MCHC unknown [facility] T unknown 25.4 unknown pg MCH unknown [facility] LYMPHOCYTES unknown 1.2 10 unknown LY_ unknown unknown Clinic _AUTO_ 3/UL [facility] T unknown 1.2 10 unknown LYMPH_AUTO_ unknown unknown Clinic 3/UL [facility] T unknown 5.1 unknown meq/L K unknown [facility] T unknown 9.0 unknown g/dL HGB unknown [facility] T unknown 30.7 unknown % HCT unknown [facility] T unknown 137 unknown mg/dL GLU unknown [facility] T unknown 3.5 unknown GLOB unknown [facility] T unknown 41 unknown mL/mi GFR_-_MDRD unknown unknown Clinic n [facility] GFR_-_MDRD unknown 41 unknown mL/mi GFR unknown unknown [facility] n [facility] T unknown 11.0 unknown GAP unknown [facility] EOSINOPHILS unknown 0.4 10 unknown EO_ unknown unknown Clinic _AUTO_ 3/UL [facility] T unknown 0.4 10 unknown EOS_AUTO_ unknown unknown Clinic 3/UL [facility] CRP_-_C-MADAY unknown 6.3 unknown mg/dL CRP_[facility]_ unkno wn unknown Clinic CTIVE_PROTEI Primary N [facility] T unknown 6.3 unknown mg/dL CRP unknown [facility] T unknown 1.3 unknown mg/dL CREAT unknown [facility] T unknown 28 unknown mmol/ CO2 unknown [facility] L [facility] T unknown 100 unknown mmol/ CL unknown [facility] L [facility] T unknown 8.9 unknown mg/dL CA unknown [facility] T unknown 38 unknown mg/dL BUN unknown [facility] T unknown 83 unknown pg/mL BNP unknown [facility] BILIRUBIN_T unknown 0.6 unknown mg/dL BILIT unknown unknown Clinic OTAL [facility] BASOPHILS_A unknown 0.0 10 unknown BA_ unknown unknown Clinic UTO_ 3/UL [facility] T unknown 0.0 10 unknown BASO_AUTO_ unknown unknown Clinic 3/UL [facility] T unknown 1.1 unknown A_G_RATIO unknown unknown [facility] T unknown 13 unknown U/L AST unknown [facility] T unknown 10 unknown U/L ALT_SGPT_ unknown unknown Clinic [facility] ALT_ALANINE unknown 10 unknown U/L ALT unknown unknown Clinic _AMINOTRANSF Primary ERASE [facility] ALKALINE_PH unknown 81 unknown U/L ALP unknown unknown Clinic OSPHATASE [facility] T unknown 81 unknown U/L [facility] T unknown 3.7 unknown g/dL ALB unknown [facility] ALBUMIN_GLO unknown 1.1 unknown AGRATIO unknow n unknown Clinic BULIN_RATIO [facility] Vital Signs date measurement value source 20210912 temperature_standard 97.8 F [id number] temperature_metric 36.56 C 20210912 respiration_rate 20 /min [id number] height_standard 70 in [id number] height_metric 177.8 cm 20210912 heart_rate 89 /min [id number] BP_systolic 144 mm[Hg] 20210912 BP_diastolic 63 mm[Hg]
--- NOTE | 2021-10-08 15:55 | PHARMACY PROGRESS NOTE ---
- Best Possible Medication History Admit Date and Time: 10/08/21 1501 Processed by: Pharmacy Medication History completed: Yes Patient Interview: Completed Secondary Source(s): Insurance records As the person ultimately responsible for medication therapy, providers are able to order a medication from an existing home medication list in [facility] via the "Reconcile Routine" prior to Confirmation of that medication by landing support specialist. Such practice is discouraged except when the physician, in their clinical judgment, deems that a medical need exists for a medication without regard to previous use.
[2021-10-08] MEDS: oxyCODONE 5 MG TABLET PO PRN (16:48)
[2021-10-08] MEDS: INSULIN ASPART 300 UNIT/3 ML PEN SUBQ SCH ×2 (16:59→20:58)
[2021-10-08] MEDS: metFORMIN 500 MG TABLET PO SCH (17:00)
[2021-10-08] MEDS: SERTRALINE 50 MG TABLET PO SCH (20:57)
[2021-10-08] MEDS: METHADONE 5 MG TABLET PO SCH (20:57)
[2021-10-08] MEDS: ATORVASTATIN 40 MG TABLET PO SCH (20:57)
[2021-10-08] MEDS: PREGABALIN 25 MG CAPSULE PO SCH (20:57)
[2021-10-09] MEDS ORDERED: CARBOXYMETHYLCELLULOSE OPHTH DROPS EACHEYE PRN (02:47)
[2021-10-09] MEDS: LORazepam 0.5 MG TABLET PO PRN (04:50)
[2021-10-09] MEDS ORDERED: LORazepam 0.5 MG TABLET ONE (04:56)
[2021-10-09] MEDS ORDERED: CARBOXYMETHYLCELLULOSE OPHTH DROPS ONE (04:56)
[2021-10-09] MEDS: LEVOTHYROXINE 125 MCG TABLET PO SCH (06:14)
[2021-10-09] MEDS: LIOTHYRONINE 25 MCG TABLET PO SCH (06:14)
[2021-10-09] MEDS: ALBUTEROL NEB 2.5 MG/3 ML INH PRN ×2 (06:31→22:31)
--- NOTE | 2021-10-09 07:18 | HISTORY & PHYSICAL EXAMINATION ---
Chief Complaint - Chief Complaint Chief Complaint: generalized weakness History of Present Illness - Admitted From Admitted From:: [facility] - History Obtained From Records Reviewed: yes History obtained from: patient and medical records - History of Present Illness HPI Comment/Other: Patient is a 66-year-old morbidly obese female with BMI of 71, probable sleep apnea, diabetes mellitus on metformin, chronic leg wounds, hypothyroidism, chronic pain syndrome and history of chronic diastolic heart failure on Lasix who was admitted on 09/14/21 with shortness of breath which has been going on for 1 week prior to presentation. She also had a dry cough with slight sputum production that was yellow. She was diagnosed with COPD exacerbation and community-acquired pneumonia and treated with Rocephin, azithromycin, IV steroids and breathing treatments. Initially treatment was on the [facility] floor. She also received Lasix IV for a nasarca with pitting edema up to her hips. On 09/19/2021 she became somnolent and ABG showed a pH of 7.26 with PCO2 of 80. As a result she was transferred to the ICU for further management on BiPAP. Despite the BiPAP her PCO2 level increased from 80 up to 100. Due to this worsening her respiratory status anesthesia was consulted and patient was intubated. She completed 7-day course of Rocephin and empiric azithromycin. Repeat chest x-rays continue to show infiltrates so cefepime was added for healthcare associated pneumonia coverage. Her urine cultures grew E faecalis which was covered by cefepime. Blood and respiratory cultures were no growth for 5 days. Diuretics were continued throughout her hospital stay. She was extubated on to. Her respiratory status slowly improved over the subsequent days. She was able to be off the BiPAP for longer stretches of time during the day and back on the BiPAP at night while asleep. She was in the ICU for an extended period of time while awaiting her new noninvasive ventilation device. She was subsequently transferred to the [facility] floor due to significant respiratory status recovery. She was seen by physical therapy and deemed to be a candidate for intermediate facility for rehab. However it had been difficult for social work to find placement given her need for a bariatric bed and also using a lift to get in and out of bed. She was admitted to [facility] swing bed on 10/08/21. She was resting comfortably in bed denied any significant complaints at the time. History - Past Medical History Cardiovascular: reports: Hypertension, Peripheral Vascular Disease Respiratory: reports: Asthma, COPD, Shortness of breath, Sleep apnea Neuro: reports: Migraines, Peripheral neuropathy Endocrine/Autoimmune: reports: Type 2 diabetes, HyPOthyroidism GI: reports: Hepatitis : reports: Incontinence, Nocturia, Frequency, Other HEENT: reports: Chronic vision loss Psych: reports: Depression, Anxiety, Post traumatic stress disorder Musculoskeletal: reports: Osteoarthritis, Fibromyalgia, Fatigue, Chronic back pain Derm: reports: Other drug resistant infections, Herpes zoster MRSA Hx?: No - Past Surgical History Cardiovascular: reports: Other - Family & Social History Family History: Mother: , Father: , Brother: Alive and Well (has MS) Living Situation: With family Social History Notes: She quit smoking many years ago, drinks no alcohol, no drug use history. She has a caregiver that is supposed to prepare her diabetic meals but mostly "watches TV with her" according to the daughter. - Substance History Use: Uses substance without health or social issues: Tobacco (hx), Alcohol - POLST Patient has POLST: Yes POLST Status: DNR Meds/Allgy - Home Medications Home Medications: Ambulatory Orders Medication Instructions Recorded Confirmed Levothyroxine [Synthroid] 125 mcg PO QDAC 10/07/13 10/08/21 Lisinopril 20 mg PO DAILY 02/12/15 10/08/21 Meloxicam 15 mg PO DAILY 08/04/16 10/08/21 Potassium Chloride [Klor-Con 10] 10 meq PO DAILY 09/09/18 10/08/21 Sertraline HCl 150 mg PO HS 09/09/18 10/08/21 Oxycodone HCl/Acetaminophen 1 each PO QID PRN 05/29/20 10/08/21 [Percocet 10-325 mg Tablet] Pregabalin [Lyrica] 50 - 100 mg PO BID 05/29/20 10/08/21 Cholecalciferol [Vitamin D3] 5,000 units PO DAILY 09/07/20 10/08/21 Vitamin B Complex/Folic Acid 1 tab PO DAILY 09/07/20 10/08/21 [B-Complex Tablet] Albuterol Sulf [Ventolin Hfa 1 - 2 puffs INH Q4HR PRN #1 inhaler 04/26/21 10/08/21 Inhaler] Atorvastatin Calcium 40 mg PO QPM 05/08/21 10/08/21 Liothyronine [Cytomel] 25 mcg PO QDAC 05/08/21 10/08/21 Acetaminophen [Tylenol] 650 mg PO Q4HR PRN tablet 05/15/21 10/08/21 Metformin HCl [Metformin ER 500 mg PO BID #0 05/15/21 10/08/21 Gastric] Methadone HCl 10 mg PO BID #0 05/15/21 10/08/21 amLODIPine [Norvasc] 5 mg PO DAILY #30 tablet 05/15/21 10/08/21 Albuterol 2.5 mg INH QID PRN 09/15/21 10/08/21 Furosemide [Lasix] 40 mg PO DAILY 09/15/21 10/08/21 - Allergies Allergies/Adverse Reactions: Allergies Allergy/AdvReac Type Severity Reaction Status Date / Time Penicillins Allergy Rash Verified 09/14/21 15:42 Sulfa (Sulfonamide Allergy Rash Verified 09/14/21 15:42 Antibiotics) Review of Systems - Constitutional Constitutional: reports: Fatigue, Weakness. denies: Fever, Chills - Eyes Eyes: denies: Pain, Vision loss - Ears, Nose & Throat Ears, Nose & Throat: denies: Ear pain, Sore throat - Cardiovascular Cariovascular: reports: Edema (trace to +1). denies: Chest pain - Respiratory Respiratory: denies: Cough, Sputum production, Wheezing - Gastrointestinal Gastrointestinal: reports: Other. denies: Abdominal pain, Constipation, Diarrhea - Genitourinary Genitourinary: denies: Dysuria, Frequency, Urgency, Hematuria - Musculoskeletal Musculoskeletal: reports: Back pain - Integumentary Integumentary: denies: Rash, Pruritis - Neurological Neurological: reports: General weakness. denies: Focal weakness, Headache - Psychiatric Psychiatric: reports: Anxiety. denies: Depression - Endocrine Endocrine: denies: Polyuria, Polydypsia - Hematologic/Lymphatic Hematologic/Lymphatic: denies: Anemia, Bruising, Petechiae Exam - Vital Signs Vital Signs: Vital Signs x48h Pulse Resp 10/09/21 05:00 64 24 - Physical Exam General Appearance: positive: Alert, Moderate distress, Other (Morbid obesity) Eyes Bilateral: positive: PERRL, EOMI ENT: positive: No signs of dehydration Neck: positive: Trachea midline Respiratory: positive: Chest non-tender, No respiratory distress, Breath sounds nml Cardiovascular: positive: Regular rate & rhythm, No murmur Abdomen: positive: Non-tender, No organomegaly, Nml bowel sounds, Other (obese abdomen). negative: Guarding, Rebound Back: positive: Nml inspection Skin: positive: Warm, Dry, Other (chronic venostasis changes) Extremities: positive: Pedal edema (Trace to +1 edema) Neurologic/Psychiatric: positive: Oriented x3, Mood/affect nml Conclusion/Plan - Problem List (1) Chronic respiratory failure Conclusion/Plan: Multifactorial cause. Secondary to COPD, morbid obesity with hypoventilation syndrome, Obstructive sleep apnea, CHF. Currently back to baseline Oxygen requirement. On 3 L of oxygen via nasal cannula during the day and trilogy/BiPAP at night. On a prednisone taper. Currently 5 mg p.o. daily for 3 days. (2) COPD (chronic obstructive pulmonary disease) Conclusion/Plan: Currently back to baseline Oxygen requirement. On 3 L of oxygen via nasal cannula during the day and trilogy/BiPAP at night. On a prednisone taper. Currently 5 mg p.o. daily for 3 days. 4 times daily as needed (3) Chronic diastolic heart failure Conclusion/Plan: Currently at baseline. Not in exacerbation. On Lasix 40 mg p.o. daily Lisinopril 20 mg p.o. daily (4) Generalized weakness Conclusion/Plan: Patient had an extended hospital stay for COPD exacerbation, pneumonia and CHF exacerbation for which she was intubated. She is significantly deconditioned following her hospital course. Generalized weakness is further exacerbated by patient's morbid obesity and overall chronic medical problems. Relies on the left to get in and out of bed and into the bedside chair. PT/OT to evaluate and treat the patient. (5) Anxiety Conclusion/Plan: Ativan 0.5 mg p.o. twice daily as needed. (6) CKD (chronic kidney disease) stage 3, GFR 30-59 ml/min Conclusion/Plan: Patient is currently at baseline. (7) Chronic pain syndrome Conclusion/Plan: On methadone and oxycodone. Lyrica 50 mg p.o. twice daily. (8) Diabetes mellitus Conclusion/Plan: Metformin 500 mg p.o. twice daily with meals. Sliding scale insulin. Accu-Cheks q. ACHS. Qualifiers: Diabetes mellitus type: type 2 (9) Hypothyroidism Conclusion/Plan: On levothyroxine 125 mcg p.o. daily AC. Cytomel 25 mcg p.o. daily AC (10) Morbid obesity with BMI of 60.0-69.9, adult Conclusion/Plan: Contributing to patient's significant deconditioning/generalized weakness. PT/OT to evaluate and treat patient. Patient advised on diet and exercise. (11) Hyperlipidemia Conclusion/Plan: On atorvastatin 40 mg p.o. every afternoon. Core Measures - Anticipated LOS I expect patient to be DC'd or transferred within 96 hours.: Yes - DVT/VTE - Prophylaxis VTE/DVT Prophylaxis med ordered at admit?: Yes
[2021-10-09] MEDS: INSULIN ASPART 300 UNIT/3 ML PEN SUBQ SCH ×4 (07:35→21:23)
[2021-10-09] MEDS: CHOLECALCIFEROL 5,000 UNIT CAPSULE PO SCH (08:17)
[2021-10-09] MEDS: POTASSIUM CHLORIDE 10 MEQ CAPSULE PO SCH (08:17)
[2021-10-09] MEDS: FUROSEMIDE 40 MG TABLET PO SCH (08:17)
[2021-10-09] MEDS: PREGABALIN 25 MG CAPSULE PO SCH ×2 (08:17→21:22)
[2021-10-09] MEDS: METHADONE 5 MG TABLET PO SCH ×2 (08:17→21:22)
[2021-10-09] MEDS: metFORMIN 500 MG TABLET PO SCH ×2 (08:17→16:58)
[2021-10-09] MEDS ORDERED: SODIUM CHLORIDE FLUSH 0.9% 10 ML SYRINGE IVP PRN (08:45)
[2021-10-09] MEDS ORDERED: lisinopriL 20 MG TABLET PO SCH (09:00)
[2021-10-09] MEDS ORDERED: amLODIPine 5 MG TABLET PO SCH (09:00)
[2021-10-09] MEDS: SODIUM CHLORIDE FLUSH 0.9% 10 ML SYRINGE IVP SCH ×2 (09:01→16:58)
[2021-10-09] MEDS: SODIUM CHLORIDE FLUSH 0.9% 10 ML SYRINGE IVP PRN (09:01)
[2021-10-09] MEDS: predniSONE 5 MG TABLET PO SCH (09:01)
[2021-10-09] MEDS: ACETAMINOPHEN 325 MG TABLET PO PRN (13:44)
[2021-10-09] MEDS: oxyCODONE 5 MG TABLET PO PRN (13:44)
[2021-10-09] MEDS: ATORVASTATIN 40 MG TABLET PO SCH (21:23)
[2021-10-09] MEDS: SERTRALINE 50 MG TABLET PO SCH (21:23)
[2021-10-10] MEDS: LORazepam 0.5 MG TABLET PO PRN (00:15)
[2021-10-10] MEDS: LEVOTHYROXINE 125 MCG TABLET PO SCH (05:54)
[2021-10-10] MEDS: SODIUM CHLORIDE FLUSH 0.9% 10 ML SYRINGE IVP SCH ×3 (05:54→18:07)
[2021-10-10] MEDS: ALBUTEROL NEB 2.5 MG/3 ML INH PRN (07:04)
[2021-10-10] MEDS ORDERED: CALCIUM CARBONATE CHEW 500 MG TABLET PO PRN (07:34)
[2021-10-10] MEDS: LIOTHYRONINE 25 MCG TABLET PO SCH (07:56)
[2021-10-10] MEDS: INSULIN ASPART 300 UNIT/3 ML PEN SUBQ SCH ×5 (08:04→21:13)
[2021-10-10] MEDS: predniSONE 5 MG TABLET PO SCH (08:36)
[2021-10-10] MEDS: PREGABALIN 25 MG CAPSULE PO SCH ×2 (08:36→21:13)
[2021-10-10] MEDS: FUROSEMIDE 40 MG TABLET PO SCH (08:36)
[2021-10-10] MEDS: CHOLECALCIFEROL 5,000 UNIT CAPSULE PO SCH (08:36)
[2021-10-10] MEDS: METHADONE 5 MG TABLET PO SCH ×2 (08:37→21:13)
[2021-10-10] MEDS: POTASSIUM CHLORIDE 10 MEQ CAPSULE PO SCH (08:37)
[2021-10-10] MEDS: amLODIPine 5 MG TABLET PO SCH (08:48)
[2021-10-10] MEDS: polyethylene glycoL 3350 17 GM PACKET PO SCH (08:50)
[2021-10-10] MEDS ORDERED: lisinopriL 20 MG TABLET PO SCH (09:00)
[2021-10-10] MEDS: ENOXAPARIN 60 MG/0.6 ML SYRINGE SUBQ SCH ×2 (10:03→21:13)
[2021-10-10] MEDS: SODIUM CHLORIDE FLUSH 0.9% 10 ML SYRINGE IVP PRN ×2 (10:03→10:36)
[2021-10-10] MEDS: METFORMIN 500 MG PO SCH ×2 (10:04→18:07)
[2021-10-10] MEDS ORDERED: SODIUM CHLORIDE 0.9% 500 ML IV ONE (10:07)
[2021-10-10 10:16] LABS: BASOPHILS % (AUTO) 0.5 %; EOSINOPHILS # (AUTO) 0.2 10^3/uL (0.0-0.7); EOSINOPHILS % (AUTO) 3.7 %; HCT - HEMATOCRIT 30.3 % (37.0-47.0); HGB - HEMOGLOBIN 9.1 g/dL (12.0-16.0); LYMPHOCYTES # (AUTO) 1.1 10^3/uL (1.5-3.5); LYMPHOCYTES % (AUTO) 17.4 %; MEAN CORPUSCULAR HEMOGLOBIN 26.7 pg (27.0-31.0); MEAN CORPUSCULAR VOLUME 88.9 fL (81.0-99.0); MEAN PLATELET VOLUME 9.7 fL (7.9-10.8); MONOCYTES # (AUTO) 0.6 10^3/uL (0.0-1.0); MONOCYTES % (AUTO) 8.6 %; NEUTROPHILS # (AUTO) 4.5 10^3/uL (1.5-6.6); NEUTROPHILS % (AUTO) 69.5 %; PLT - PLATELET COUNT 178 10^3/uL (130-450); RED BLOOD COUNT 3.41 10^6/uL (4.20-5.40); RED CELL DISTRIBUTION WIDTH 19.9 % (12.0-15.0); WHITE BLOOD COUNT 6.4 x10^3/uL (4.8-10.8)
[2021-10-10] MEDS: ACETAMINOPHEN 325 MG TABLET PO PRN (18:07)
[2021-10-10] MEDS: oxyCODONE 5 MG TABLET PO PRN (18:07)
[2021-10-10] MEDS: SERTRALINE 50 MG TABLET PO SCH (21:12)
[2021-10-10] MEDS: ATORVASTATIN 40 MG TABLET PO SCH (21:13)
[2021-10-11] MEDS: LORazepam 0.5 MG TABLET PO PRN (01:38)
[2021-10-11] MEDS: ACETAMINOPHEN 325 MG TABLET PO PRN ×2 (01:38→18:25)
[2021-10-11] MEDS: SODIUM CHLORIDE FLUSH 0.9% 10 ML SYRINGE IVP SCH ×3 (01:40→18:26)
[2021-10-11] MEDS: oxyCODONE 5 MG TABLET PO PRN (06:33)
[2021-10-11] MEDS: LEVOTHYROXINE 125 MCG TABLET PO SCH (06:34)
[2021-10-11] MEDS: LIOTHYRONINE 25 MCG TABLET PO SCH (06:40)
[2021-10-11] MEDS: ALBUTEROL NEB 2.5 MG/3 ML INH PRN ×2 (06:59→14:51)
[2021-10-11] MEDS: INSULIN ASPART 300 UNIT/3 ML PEN SUBQ SCH ×4 (07:28→20:14)
[2021-10-11] MEDS: polyethylene glycoL 3350 17 GM PACKET PO SCH (08:28)
[2021-10-11] MEDS: ENOXAPARIN 60 MG/0.6 ML SYRINGE SUBQ SCH ×2 (08:28→21:26)
[2021-10-11] MEDS: METHADONE 5 MG TABLET PO SCH ×2 (08:29→21:26)
[2021-10-11] MEDS: amLODIPine 5 MG TABLET PO SCH (08:29)
[2021-10-11] MEDS: CHOLECALCIFEROL 5,000 UNIT CAPSULE PO SCH (08:29)
[2021-10-11] MEDS: PREGABALIN 25 MG CAPSULE PO SCH ×2 (08:29→21:26)
[2021-10-11] MEDS: predniSONE 5 MG TABLET PO SCH (08:29)
[2021-10-11] MEDS: POTASSIUM CHLORIDE 10 MEQ CAPSULE PO SCH (08:29)
[2021-10-11] MEDS: SODIUM CHLORIDE FLUSH 0.9% 10 ML SYRINGE IVP PRN (08:30)
[2021-10-11] MEDS: METFORMIN 500 MG PO SCH ×2 (08:31→17:45)
[2021-10-11] MEDS ORDERED: FUROSEMIDE 40 MG TABLET PO SCH (09:00)
[2021-10-11 10:50] LABS: ABG PH 7.39 (7.35-7.45)
[2021-10-11 10:51] LABS: ABG BASE EXCESS 9.3 mmol/L (-2.0-3.0); ABG HCO3 35.9 mmol/L (22.0-26.0); ABG TCO2 37.8 MMOL/L (21.0-29.0); ALLEN TEST POSITIVE
[2021-10-11 10:53] LABS: ABG OXYGEN SATURATION 87 % (94-98); ABG PCO2 61 mmHg (34-45); ABG PO2 52 mmHg (80-100)
[2021-10-11 17:01] LABS: ABG PH 7.35 (7.35-7.45)
[2021-10-11 17:02] LABS: ABG HCO3 36.5 mmol/L (22.0-26.0); ABG OXYGEN SATURATION 95 % (94-98); ABG PO2 82 mmHg (80-100); ABG TCO2 38.6 MMOL/L (21.0-29.0)
[2021-10-11 17:04] LABS: ABG PCO2 68 mmHg (34-45)
--- NOTE | 2021-10-11 17:12 | XRAY Report ---
PROCEDURE: Chest 1 View X-Ray INDICATIONS: hypoxia TECHNIQUE: One view of the chest was acquired. COMPARISON: Multiple chest radiographs dated between 05/12/2021 and 10/01/2021 FINDINGS: Surgical changes and devices: Right-sided PICC line is noted with the tip overlying the expected loca tion of the superior cavoatrial junction. Lungs and pleura: There is diffuse interstitial prominence. Left basilar opacity with moderate-sized pleural effusion. There is likely a trace right-sided pleural effusion. Pulmonary vascular congestion . This is progressed from comparison Mediastinum: Mediastinal contours appear normal. Stable cardiomegaly. Bones and chest wall: No suspicious bony lesions. Overlying soft tissues appear unremarkable. IMPRESSION: Interval progression of left-sided moderate-sized pleural effusion and trace right-sided pleural effu chinyere with diffuse interstitial and alveolar opacities most likely representing pulmonary edema given cardiomegaly. Underlying infection not completely excluded. PICC line with tip at the expected location of the superior cavoatrial junction. Reviewed by: David Gabriel DO on 10/11/2021 4:10 PM ANIL Approved by: David Gabriel DO on 10/11/2021 4:10 PM ANIL Station ID: [id number]
[2021-10-11 17:40] LABS: BASOPHILS % (AUTO) 0.4 %; EOSINOPHILS # (AUTO) 0.1 10^3/uL (0.0-0.7); EOSINOPHILS % (AUTO) 2.3 %; HCT - HEMATOCRIT 32.7 % (37.0-47.0); HGB - HEMOGLOBIN 9.5 g/dL (12.0-16.0); LYMPHOCYTES # (AUTO) 1.1 10^3/uL (1.5-3.5); LYMPHOCYTES % (AUTO) 18.6 %; MEAN CORPUSCULAR HEMOGLOBIN 25.8 pg (27.0-31.0); MEAN CORPUSCULAR HGB CONC 29.1 g/dL (32.0-36.0); MEAN CORPUSCULAR VOLUME 88.9 fL (81.0-99.0); MEAN PLATELET VOLUME 10.2 fL (7.9-10.8); MONOCYTES # (AUTO) 0.5 10^3/uL (0.0-1.0); MONOCYTES % (AUTO) 8.3 %; NEUTROPHILS % (AUTO) 70.2 %; PLT - PLATELET COUNT 188 10^3/uL (130-450); RED BLOOD COUNT 3.68 10^6/uL (4.20-5.40); RED CELL DISTRIBUTION WIDTH 19.7 % (12.0-15.0); WHITE BLOOD COUNT 5.7 x10^3/uL (4.8-10.8)
[2021-10-11] MEDS ORDERED: levoFLOXacin 750 MG/150 ML 750 MG/150 ML BAG IV SCH (18:00)
[2021-10-11 18:43] LABS: CALCIUM 8.6 mg/dL (8.5-10.3); CREATININE 1.1 mg/dL (0.4-1.0)
[2021-10-11 18:44] LABS: BILIRUBIN,URINE NEGATIVE (NEGATIVE); GLUCOSE, URINE (UA) NEGATIVE (NEGATIVE); KETONES,URINE (UA) NEGATIVE (NEGATIVE); LEUKOCYTE ESTERASE, URINE NEGATIVE (NEGATIVE); NITRITE,URINE NEGATIVE (NEGATIVE); OCCULT BLOOD,URINE TRACE-INTA (NEGATIVE); PH,URINE 5.5 PH (5.0-7.5); PROTEIN,URINE NEGATIVE (NEGATIVE); UROBILINOGEN,URINE 0.2 (NORMAL) E.U./dL (NORMAL)
--- NOTE | 2021-10-11 18:46 | PROVIDER PROGRESS NOTE ---
Hospitalist Cross-cover Note - Cross-Cover Note Cross-Cover Note: It was brought to my attention earlier in the morning around 9:30 AM that the patient was somewhat somnolent. Patient had just received Ativan, oxycodone and methadone a few hours prior to this. At that time she was also on her BiPAP machine. ABG was done at 10:40 AM with the following results. pH 7.39, PCO2 61, PO2 52, HCO3 35.9, oxygen saturation 87 BiPAP settings with FiO2 25%, PEEP 0, EPAP 5, IPAP 10 FiO2 was increased to 35% and IPAP to 14. ABG was repeated 7 hours later. pH was 7.35, PCO2 68, PO2 82, HCO3 36.5, oxygen saturation 95%. The respiratory rate was increased to 16 and the IPAP was increased to 16. Will recheck ABG at 9 PM. The patient spiked a temperature of 38.4 C around 5 PM. X-ray showed interval progression of left-sided moderate-sized pleural effusion and trace right-sided pleural effusion with diffuse interstitial and alveolar opacities most likely representing pulmonary edema given cardiomegaly. Underlying infection could not be excluded.. White blood cell count on CBC was 5.7. Blood cultures were drawn and the patient was started on Levaquin 750 mg IV daily x5 days. She is on Lasix 40 mg p.o. daily. When interventional radiology is available, will consult regarding moderate left-sided pleural effusion for possible thoracentesis.
[2021-10-11 18:51] LABS: CLARITY,URINE CLEAR (CLEAR)
[2021-10-11] MEDS: SERTRALINE 50 MG TABLET PO SCH (21:26)
[2021-10-11] MEDS: ATORVASTATIN 40 MG TABLET PO SCH (21:26)
[2021-10-11 21:35] LABS: ABG PH 7.34 (7.35-7.45)
[2021-10-11 21:36] LABS: ABG BASE EXCESS 8.1 mmol/L (-2.0-3.0); ABG HCO3 35.5 mmol/L (22.0-26.0); ABG OXYGEN SATURATION 95 % (94-98); ABG PO2 79 mmHg (80-100); ABG TCO2 37.6 MMOL/L (21.0-29.0); ALLEN TEST POSITIVE
[2021-10-11 21:37] LABS: ABG MODE OF VENTILATION SYNCHRONOUS/TIMES; ABG RESPIRATORY RATE 16 b/min
[2021-10-11 21:41] LABS: ABG PCO2 67 mmHg (34-45)
[2021-10-12] MEDS: ACETAMINOPHEN 325 MG TABLET PO PRN ×4 (00:58→20:02)
[2021-10-12] MEDS: SODIUM CHLORIDE FLUSH 0.9% 10 ML SYRINGE IVP SCH ×3 (00:58→16:06)
[2021-10-12] MEDS: oxyCODONE 5 MG TABLET PO PRN ×3 (05:44→20:01)
[2021-10-12] MEDS: LIOTHYRONINE 25 MCG TABLET PO SCH (05:45)
[2021-10-12] MEDS: LEVOTHYROXINE 125 MCG TABLET PO SCH (05:45)
[2021-10-12] MEDS: ALBUTEROL NEB 2.5 MG/3 ML INH PRN (07:32)
[2021-10-12] MEDS: INSULIN ASPART 300 UNIT/3 ML PEN SUBQ SCH ×4 (07:46→21:48)
[2021-10-12] MEDS: PREGABALIN 25 MG CAPSULE PO SCH ×2 (08:29→20:01)
[2021-10-12] MEDS: METFORMIN 500 MG PO SCH ×2 (08:29→16:53)
[2021-10-12] MEDS: CHOLECALCIFEROL 5,000 UNIT CAPSULE PO SCH (08:29)
[2021-10-12] MEDS: guaiFENesin 600 MG TABLET PO SCH ×2 (08:29→20:01)
[2021-10-12] MEDS: METHADONE 5 MG TABLET PO SCH ×2 (08:29→20:01)
[2021-10-12] MEDS: POTASSIUM CHLORIDE 10 MEQ CAPSULE PO SCH (08:29)
[2021-10-12] MEDS: polyethylene glycoL 3350 17 GM PACKET PO SCH (08:30)
[2021-10-12] MEDS: ENOXAPARIN 60 MG/0.6 ML SYRINGE SUBQ SCH ×2 (08:30→20:00)
[2021-10-12] MEDS: amLODIPine 5 MG TABLET PO SCH (08:30)
[2021-10-12] MEDS: levoFLOXacin 250 MG TABLET PO SCH (08:30)
[2021-10-12] MEDS: SODIUM CHLORIDE FLUSH 0.9% 10 ML SYRINGE IVP PRN (08:31)
[2021-10-12] MEDS ORDERED: FUROSEMIDE 40 MG TABLET PO SCH (09:00)
[2021-10-12] MEDS: SENNA 8.6 MG TABLET PO SCH (20:01)
[2021-10-12] MEDS: DOCUSATE SODIUM 250 MG CAPSULE PO SCH (20:01)
[2021-10-12] MEDS: ATORVASTATIN 40 MG TABLET PO SCH (20:01)
[2021-10-12] MEDS: SERTRALINE 50 MG TABLET PO SCH (20:02)
[2021-10-13] MEDS: SODIUM CHLORIDE FLUSH 0.9% 10 ML SYRINGE IVP SCH ×4 (00:36→23:53)
[2021-10-13] MEDS: ACETAMINOPHEN 325 MG TABLET PO PRN ×4 (02:41→21:52)
[2021-10-13] MEDS: oxyCODONE 5 MG TABLET PO PRN ×2 (02:41→06:37)
[2021-10-13] MEDS: LEVOTHYROXINE 125 MCG TABLET PO SCH (05:17)
[2021-10-13] MEDS: LIOTHYRONINE 25 MCG TABLET PO SCH (05:17)
[2021-10-13] MEDS: METFORMIN 500 MG PO SCH ×2 (08:12→16:53)
[2021-10-13] MEDS: METHADONE 5 MG TABLET PO SCH ×2 (08:12→21:52)
[2021-10-13] MEDS: polyethylene glycoL 3350 17 GM PACKET PO SCH (08:12)
[2021-10-13] MEDS: INSULIN ASPART 300 UNIT/3 ML PEN SUBQ SCH ×4 (08:12→21:51)
[2021-10-13] MEDS: amLODIPine 5 MG TABLET PO SCH (08:13)
[2021-10-13] MEDS: PREGABALIN 25 MG CAPSULE PO SCH ×2 (08:13→21:52)
[2021-10-13] MEDS: ENOXAPARIN 60 MG/0.6 ML SYRINGE SUBQ SCH ×2 (08:13→21:53)
[2021-10-13] MEDS: guaiFENesin 600 MG TABLET PO SCH ×2 (08:13→21:52)
[2021-10-13] MEDS: CHOLECALCIFEROL 5,000 UNIT CAPSULE PO SCH (08:13)
[2021-10-13] MEDS: POTASSIUM CHLORIDE 10 MEQ CAPSULE PO SCH (08:13)
[2021-10-13] MEDS: levoFLOXacin 250 MG TABLET PO SCH (08:13)
[2021-10-13] MEDS: DOCUSATE SODIUM 250 MG CAPSULE PO SCH ×2 (12:24→16:06)
[2021-10-13] MEDS: SENNA 8.6 MG TABLET PO SCH ×2 (12:25→16:06)
[2021-10-13] MEDS: SACCHAROMYCES BOULARDII 250 MG CAPSULE PO SCH (16:06)
[2021-10-13] MEDS: ATORVASTATIN 40 MG TABLET PO SCH (21:52)
[2021-10-13] MEDS: SERTRALINE 50 MG TABLET PO SCH (21:53)
[2021-10-13] MEDS: SODIUM CHLORIDE FLUSH 0.9% 10 ML SYRINGE IVP PRN (23:53)
[2021-10-14] MEDS: ACETAMINOPHEN 325 MG TABLET PO PRN ×2 (05:01→10:32)
[2021-10-14] MEDS: LIOTHYRONINE 25 MCG TABLET PO SCH (05:01)
[2021-10-14] MEDS: oxyCODONE 5 MG TABLET PO PRN ×2 (05:01→10:32)
[2021-10-14] MEDS: LEVOTHYROXINE 125 MCG TABLET PO SCH (05:01)
[2021-10-14] MEDS: ALBUTEROL NEB 2.5 MG/3 ML INH PRN ×2 (07:08→15:06)
[2021-10-14] MEDS: INSULIN ASPART 300 UNIT/3 ML PEN SUBQ SCH ×2 (07:53→12:09)
[2021-10-14] MEDS: METHADONE 5 MG TABLET PO SCH (09:04)
[2021-10-14] MEDS: levoFLOXacin 250 MG TABLET PO SCH (09:04)
[2021-10-14] MEDS: METFORMIN 500 MG PO SCH (09:04)
[2021-10-14] MEDS: ENOXAPARIN 60 MG/0.6 ML SYRINGE SUBQ SCH (09:04)
[2021-10-14] MEDS: guaiFENesin 600 MG TABLET PO SCH (09:05)
[2021-10-14] MEDS: DOCUSATE SODIUM 250 MG CAPSULE PO SCH (09:05)
[2021-10-14] MEDS: POTASSIUM CHLORIDE 10 MEQ CAPSULE PO SCH (09:05)
[2021-10-14] MEDS: amLODIPine 5 MG TABLET PO SCH (09:05)
[2021-10-14] MEDS: SACCHAROMYCES BOULARDII 250 MG CAPSULE PO SCH (09:05)
[2021-10-14] MEDS: CHOLECALCIFEROL 5,000 UNIT CAPSULE PO SCH (09:05)
[2021-10-14] MEDS: SODIUM CHLORIDE FLUSH 0.9% 10 ML SYRINGE IVP SCH (09:06)
[2021-10-14] MEDS: PREGABALIN 25 MG CAPSULE PO SCH (09:06)
[2021-10-14] MEDS: SENNA 8.6 MG TABLET PO SCH (09:06)
[2021-10-14] MEDS: polyethylene glycoL 3350 17 GM PACKET PO SCH (09:06)
[2021-10-14] MEDS ORDERED: ACETAMINOPHEN 325 MG TABLET PO ONE (17:05)
[2021-10-14] MEDS ORDERED: oxyCODONE 5 MG TABLET ONE (17:05)
[2021-10-14] MEDS ORDERED: SACCHAROMYCES BOULARDII 250 MG CAPSULE ONE (17:05)
[2021-10-14] MEDS ORDERED: DOCUSATE SODIUM 250 MG CAPSULE PO ONE (21:06)
[2021-10-14] MEDS ORDERED: PREGABALIN 25 MG CAPSULE ONE (21:06)
[2021-10-14] MEDS ORDERED: SERTRALINE 50 MG TABLET ONE (21:06)
[2021-10-14] MEDS ORDERED: ATORVASTATIN 40 MG TABLET ONE (21:06)
[2021-10-14] MEDS ORDERED: guaiFENesin 600 MG TABLET PO ONE (21:07)
[2021-10-14] MEDS ORDERED: METHADONE 5 MG TABLET ONE (21:07)
[2021-10-14] MEDS ORDERED: ENOXAPARIN 60 MG/0.6 ML SYRINGE SUBQ ONE (21:07)
[2021-10-14] MEDS ORDERED: SENNA 8.6 MG TABLET ONE (21:07)
[2021-10-15] MEDS ORDERED: ALBUTEROL NEB 2.5 MG/3 ML INH ONE ×4 (01:39→17:17)
[2021-10-15] MEDS ORDERED: ACETAMINOPHEN 325 MG TABLET PO ONE ×5 (01:40→18:29)
[2021-10-15] MEDS ORDERED: oxyCODONE 5 MG TABLET ONE ×5 (01:41→18:30)
[2021-10-15] MEDS ORDERED: HYDROmorphone 0.5 MG/0.5 ML SYRINGE ONE (02:06)
[2021-10-15] MEDS ORDERED: LIOTHYRONINE 25 MCG TABLET ONE (06:42)
[2021-10-15] MEDS ORDERED: LEVOTHYROXINE 125 MCG TABLET ONE (06:43)
[2021-10-15] MEDS ORDERED: CHOLECALCIFEROL 5,000 UNIT CAPSULE PO ONE (08:13)
[2021-10-15] MEDS ORDERED: POTASSIUM CHLORIDE 10 MEQ CAPSULE PO ONE (08:14)
[2021-10-15] MEDS ORDERED: METHADONE 5 MG TABLET ONE ×2 (08:14→20:41)
[2021-10-15] MEDS ORDERED: PREGABALIN 25 MG CAPSULE ONE ×2 (08:15→20:39)
[2021-10-15] MEDS ORDERED: amLODIPine 5 MG TABLET ONE (08:16)
[2021-10-15] MEDS ORDERED: polyethylene glycoL 3350 17 GM PACKET ONE (08:16)
[2021-10-15] MEDS ORDERED: ENOXAPARIN 60 MG/0.6 ML SYRINGE SUBQ ONE ×2 (08:16→20:41)
[2021-10-15] MEDS ORDERED: levoFLOXacin 250 MG TABLET ONE (08:16)
[2021-10-15] MEDS ORDERED: guaiFENesin 600 MG TABLET PO ONE ×2 (08:17→20:41)
[2021-10-15] MEDS ORDERED: SACCHAROMYCES BOULARDII 250 MG CAPSULE ONE ×2 (08:17→17:05)
[2021-10-15] MEDS: INSULIN ASPART 300 UNIT/3 ML PEN SUBQ SCH ×5 (18:32→20:41)
[2021-10-15] MEDS: METFORMIN 500 MG PO SCH ×3 (18:32→18:44)
[2021-10-15] MEDS: ENOXAPARIN 60 MG/0.6 ML SYRINGE SUBQ SCH ×3 (18:33→20:33)
[2021-10-15] MEDS: SACCHAROMYCES BOULARDII 250 MG CAPSULE PO SCH ×3 (18:33→18:44)
[2021-10-15] MEDS: guaiFENesin 600 MG TABLET PO SCH ×3 (18:33→20:34)
[2021-10-15] MEDS: ATORVASTATIN 40 MG TABLET PO SCH ×2 (18:33→20:34)
[2021-10-15] MEDS: DOCUSATE SODIUM 250 MG CAPSULE PO SCH ×3 (18:33→20:41)
[2021-10-15] MEDS: METHADONE 5 MG TABLET PO SCH ×3 (18:33→20:34)
[2021-10-15] MEDS: SODIUM CHLORIDE FLUSH 0.9% 10 ML SYRINGE IVP SCH ×4 (18:33→18:44)
[2021-10-15] MEDS: SENNA 8.6 MG TABLET PO SCH ×3 (18:34→20:41)
[2021-10-15] MEDS: SERTRALINE 50 MG TABLET PO SCH ×2 (18:34→20:33)
[2021-10-15] MEDS: PREGABALIN 25 MG CAPSULE PO SCH ×3 (18:34→20:34)
[2021-10-15] MEDS: LEVOTHYROXINE 125 MCG TABLET PO SCH (18:41)
[2021-10-15] MEDS: LIOTHYRONINE 25 MCG TABLET PO SCH (18:41)
[2021-10-15] MEDS: levoFLOXacin 250 MG TABLET PO SCH (18:42)
[2021-10-15] MEDS: POTASSIUM CHLORIDE 10 MEQ CAPSULE PO SCH (18:42)
[2021-10-15] MEDS: CHOLECALCIFEROL 5,000 UNIT CAPSULE PO SCH (18:42)
[2021-10-15] MEDS: amLODIPine 5 MG TABLET PO SCH (18:42)
[2021-10-15] MEDS: polyethylene glycoL 3350 17 GM PACKET PO SCH (18:43)
[2021-10-15] MEDS ORDERED: ATORVASTATIN 40 MG TABLET ONE (20:39)
[2021-10-15] MEDS ORDERED: SERTRALINE 50 MG TABLET ONE (20:40)
[2021-10-16] MEDS: SODIUM CHLORIDE FLUSH 0.9% 10 ML SYRINGE IVP SCH ×3 (00:55→17:01)
[2021-10-16] MEDS: oxyCODONE 5 MG TABLET PO PRN ×3 (02:44→17:00)
[2021-10-16] MEDS: ACETAMINOPHEN 325 MG TABLET PO PRN ×4 (02:46→21:12)
[2021-10-16] MEDS ORDERED: ACETAMINOPHEN 325 MG TABLET PO ONE ×4 (02:50→17:04)
[2021-10-16] MEDS ORDERED: oxyCODONE 5 MG TABLET ONE ×3 (02:50→17:04)
[2021-10-16] MEDS: LIOTHYRONINE 25 MCG TABLET PO SCH (06:01)
[2021-10-16] MEDS: LEVOTHYROXINE 125 MCG TABLET PO SCH (06:01)
[2021-10-16] MEDS ORDERED: LEVOTHYROXINE 125 MCG TABLET ONE (06:08)
[2021-10-16] MEDS ORDERED: LIOTHYRONINE 25 MCG TABLET ONE (06:08)
[2021-10-16] MEDS: ALBUTEROL NEB 2.5 MG/3 ML INH PRN ×2 (07:23→13:19)
[2021-10-16] MEDS ORDERED: PREGABALIN 25 MG CAPSULE ONE (08:12)
[2021-10-16] MEDS ORDERED: DOCUSATE SODIUM 250 MG CAPSULE PO ONE (08:12)
[2021-10-16] MEDS ORDERED: CHOLECALCIFEROL 5,000 UNIT CAPSULE PO ONE (08:12)
[2021-10-16] MEDS ORDERED: guaiFENesin 600 MG TABLET PO ONE (08:13)
[2021-10-16] MEDS ORDERED: SENNA 8.6 MG TABLET ONE (08:13)
[2021-10-16] MEDS ORDERED: amLODIPine 5 MG TABLET ONE (08:13)
[2021-10-16] MEDS ORDERED: POTASSIUM CHLORIDE 10 MEQ CAPSULE PO ONE (08:13)
[2021-10-16] MEDS ORDERED: METHADONE 5 MG TABLET ONE (08:13)
[2021-10-16] MEDS ORDERED: polyethylene glycoL 3350 17 GM PACKET ONE (08:14)
[2021-10-16] MEDS ORDERED: ENOXAPARIN 60 MG/0.6 ML SYRINGE SUBQ ONE (08:14)
[2021-10-16] MEDS ORDERED: SACCHAROMYCES BOULARDII 250 MG CAPSULE ONE ×2 (08:14→17:03)
[2021-10-16] MEDS: INSULIN ASPART 300 UNIT/3 ML PEN SUBQ SCH ×4 (09:08→21:13)
[2021-10-16] MEDS: POTASSIUM CHLORIDE 10 MEQ CAPSULE PO SCH (09:09)
[2021-10-16] MEDS: METHADONE 5 MG TABLET PO SCH ×2 (09:09→21:13)
[2021-10-16] MEDS: CHOLECALCIFEROL 5,000 UNIT CAPSULE PO SCH (09:09)
[2021-10-16] MEDS: amLODIPine 5 MG TABLET PO SCH (09:09)
[2021-10-16] MEDS: guaiFENesin 600 MG TABLET PO SCH ×2 (09:09→21:13)
[2021-10-16] MEDS: SACCHAROMYCES BOULARDII 250 MG CAPSULE PO SCH ×2 (09:09→17:00)
[2021-10-16] MEDS: polyethylene glycoL 3350 17 GM PACKET PO SCH (09:10)
[2021-10-16] MEDS: PREGABALIN 25 MG CAPSULE PO SCH ×2 (09:10→21:13)
[2021-10-16] MEDS: ENOXAPARIN 60 MG/0.6 ML SYRINGE SUBQ SCH ×2 (09:10→21:12)
[2021-10-16] MEDS: DOCUSATE SODIUM 250 MG CAPSULE PO SCH ×2 (09:11→21:14)
[2021-10-16] MEDS: SENNA 8.6 MG TABLET PO SCH ×2 (09:11→21:14)
[2021-10-16] MEDS: METFORMIN 500 MG PO SCH ×2 (09:13→17:00)
[2021-10-16] MEDS ORDERED: ALBUTEROL NEB 2.5 MG/3 ML INH ONE ×2 (13:27→13:35)
[2021-10-16] MEDS: ATORVASTATIN 40 MG TABLET PO SCH (21:13)
[2021-10-16] MEDS: SERTRALINE 50 MG TABLET PO SCH (21:13)
[2021-10-17] MEDS: SODIUM CHLORIDE FLUSH 0.9% 10 ML SYRINGE IVP SCH ×3 (02:19→17:09)
[2021-10-17] MEDS: LIOTHYRONINE 25 MCG TABLET PO SCH (06:05)
[2021-10-17] MEDS: ZINC OXIDE 20% OINT 30 GM TUBE TOP PRN (06:05)
[2021-10-17] MEDS: LEVOTHYROXINE 125 MCG TABLET PO SCH (06:05)
[2021-10-17] MEDS: oxyCODONE 5 MG TABLET PO PRN ×3 (06:05→20:12)
[2021-10-17] MEDS: ACETAMINOPHEN 325 MG TABLET PO PRN ×3 (06:06→20:11)
[2021-10-17] MEDS: ALBUTEROL NEB 2.5 MG/3 ML INH PRN ×2 (07:33→20:13)
[2021-10-17] MEDS: INSULIN ASPART 300 UNIT/3 ML PEN SUBQ SCH ×4 (08:10→21:02)
[2021-10-17] MEDS: ENOXAPARIN 60 MG/0.6 ML SYRINGE SUBQ SCH ×2 (08:23→21:03)
[2021-10-17] MEDS: POTASSIUM CHLORIDE 10 MEQ CAPSULE PO SCH (08:24)
[2021-10-17] MEDS: amLODIPine 5 MG TABLET PO SCH (08:24)
[2021-10-17] MEDS: PREGABALIN 25 MG CAPSULE PO SCH ×2 (08:24→21:01)
[2021-10-17] MEDS: METHADONE 5 MG TABLET PO SCH ×2 (08:24→21:01)
[2021-10-17] MEDS: FUROSEMIDE 40 MG TABLET PO SCH (08:26)
[2021-10-17] MEDS: guaiFENesin 600 MG TABLET PO SCH ×2 (08:26→21:01)
[2021-10-17] MEDS: DOCUSATE SODIUM 250 MG CAPSULE PO SCH ×2 (08:26→21:02)
[2021-10-17] MEDS: SACCHAROMYCES BOULARDII 250 MG CAPSULE PO SCH ×2 (08:26→17:08)
[2021-10-17] MEDS: CHOLECALCIFEROL 5,000 UNIT CAPSULE PO SCH (08:26)
[2021-10-17] MEDS: METFORMIN 500 MG PO SCH ×2 (08:27→17:08)
[2021-10-17] MEDS: SENNA 8.6 MG TABLET PO SCH ×2 (08:27→21:02)
[2021-10-17] MEDS: polyethylene glycoL 3350 17 GM PACKET PO SCH (08:27)
[2021-10-17] MEDS: SODIUM CHLORIDE FLUSH 0.9% 10 ML SYRINGE IVP PRN (09:45)
[2021-10-17] MEDS: FERROUS SULFATE 325 MG TABLET PO SCH (11:53)
--- NOTE | 2021-10-17 16:52 | PROVIDER PROGRESS NOTE ---
Subjective - Prog Note Date Prog Note Date: 10/17/21 - Subjective Subjective: She reports feeling well. Denies any shortness of breath or chest pain. Has had no more chills or fever. She has been using her BiPAP at night. She has continued to work with physical therapy each day and has had some progression. Current Medications - Current Medications Current Medications: Active Medications Acetaminophen (Acetaminophen 325 Mg Tablet) 650 mg PO Q4HR PRN PRN Reason: Pain or Fever > 38C (100.4F) Last Admin: 10/17/21 11:58 Dose: 650 mg Albuterol (Albuterol Neb 2.5 Mg/3 Ml) 2.5 mg INH QID PRN PRN Reason: Shortness of Air/Wheezing Last Admin: 10/17/21 07:33 Dose: 2.5 mg Amlodipine Besylate (Amlodipine 5 Mg Tablet) 2.5 mg PO DAILY [facility] Last Admin: 10/17/21 08:24 Dose: 2.5 mg Atorvastatin Calcium (Atorvastatin 40 Mg Tablet) 40 mg PO QPM [facility] Last Admin: 10/16/21 21:13 Dose: 40 mg Calcium Carbonate/Glycine (Calcium Carbonate Chew 500 Mg Tablet) 500 mg PO TID PRN PRN Reason: Heartburn Carboxymethylcellulose (Carboxymethylcellulose Ophth Drops) 1 drops EACHEYE PRN PRN PRN Reason: Dry Eye Last Admin: 10/09/21 04:50 Dose: 1 applic Cholecalciferol (Cholecalciferol 5,000 Unit Capsule) 5,000 unit PO DAILY [facility] Last Admin: 10/17/21 08:26 Dose: 5,000 unit Docusate Sodium (Docusate Sodium 250 Mg Capsule) 250 - 500 mg PO BID [facility] Last Admin: 10/17/21 08:26 Dose: Not Given Enoxaparin Sodium (Enoxaparin 60 Mg/0.6 Ml Syringe) 60 mg SUBQ BID [facility] Last Admin: 10/17/21 08:23 Dose: 60 mg Ferrous Sulfate (Ferrous Sulfate 325 Mg Tablet) 325 mg PO QDLUNCH [facility] Last Admin: 10/17/21 11:53 Dose: 325 mg Furosemide (Furosemide 40 Mg Tablet) 40 mg PO DAILY [facility] Last Admin: 10/17/21 08:26 Dose: 40 mg Guaifenesin (Guaifenesin 600 Mg Tablet) 600 mg PO BID [facility] Last Admin: 10/17/21 08:26 Dose: 600 mg Insulin Aspart (Insulin Aspart 300 Unit/3 Ml Pen) 2 - 10 unit SUBQ 0800,1200,1700,2100 [facility]; Protocol Last Admin: 10/17/21 11:30 Dose: Not Given Levothyroxine Sodium (Levothyroxine 125 Mcg Tablet) 125 mcg PO QDAC [facility] Last Admin: 10/17/21 06:05 Dose: 125 mcg Liothyronine Sodium (Liothyronine 25 Mcg Tablet) 25 mcg PO QDAC [facility] Last Admin: 10/17/21 06:05 Dose: 25 mcg Lorazepam (Lorazepam 0.5 Mg Tablet) 0.5 mg PO Q12H PRN PRN Reason: Anxiety Last Admin: 10/11/21 01:38 Dose: 0.5 mg Methadone HCl (Methadone 5 Mg Tablet) 10 mg PO BID [facility] Last Admin: 10/17/21 08:24 Dose: 10 mg Multi-Ingredient Ointment (Zinc Oxide 20% Oint 30 Gm Tube) 1 applic TOP PRN PRN PRN Reason: Skin Care Last Admin: 10/17/21 06:05 Dose: 1 applic Oxycodone HCl (Oxycodone 5 Mg Tablet) 10 mg PO Q6HR PRN PRN Reason: Pain 8 to 10 Last Admin: 10/17/21 11:58 Dose: 10 mg Patient Own Med: Metformin Er 500mg Tab 1 each PO BIDWM [facility] Last Admin: 10/17/21 08:27 Dose: 1 each Polyethylene Glycol (Polyethylene Glycol 3350 17 Gm Packet) 17 gm PO DAILY [facility] Last Admin: 10/17/21 08:27 Dose: Not Given Potassium Chloride (Potassium Chloride 10 Meq Capsule) 10 meq PO DAILYWM [facility] Last Admin: 10/17/21 08:24 Dose: 10 meq Pregabalin (Pregabalin 25 Mg Capsule) 50 mg PO BID [facility] Last Admin: 10/17/21 08:24 Dose: 50 mg Saccharomyces Boulardii (Saccharomyces Boulardii 250 Mg Capsule) 250 mg PO BIDWM [facility] Last Admin: 10/17/21 08:26 Dose: 250 mg Senna (Senna 8.6 Mg Tablet) 8.6 - 17.2 mg PO BID [facility] Last Admin: 10/17/21 08:27 Dose: Not Given Sertraline HCl (Sertraline 50 Mg Tablet) 150 mg PO HS [facility] Last Admin: 10/16/21 21:13 Dose: 150 mg Sodium Chloride (Sodium Chloride Flush 0.9% 10 Ml Syringe) 10 ml IVP 0100,0900 ,1700 [facility] Last Admin: 10/17/21 09:45 Dose: 10 ml Sodium Chloride (Sodium Chloride Flush 0.9% 10 Ml Syringe) 10 ml IVP PRN PRN PRN Reason: Per Line Care protocol Last Admin: 10/17/21 09:45 Dose: 10 ml Sodium Chloride (Sodium Chloride Flush 0.9% 10 Ml Syringe) 20 ml IVP PRN PRN PRN Reason: After Blood Draw Last Admin: 10/10/21 05:54 Dose: 20 ml Levothyroxine [Synthroid] 125 mcg PO QDAC 10/07/13 Lisinopril 20 mg PO DAILY 02/12/15 Meloxicam 15 mg PO DAILY 08/04/16 Potassium Chloride [Klor-Con 10] 10 meq PO DAILY 09/09/18 Sertraline HCl 150 mg PO 09/09/18 Oxycodone HCl/Acetaminophen [Percocet 10-325 mg Tablet] 1 each PO QID PRN 05/29/20 Pregabalin [Lyrica] 50 - 100 mg PO BID 05/29/20 Cholecalciferol [Vitamin D3] 5,000 units PO DAILY 09/07/20 Vitamin B Complex/Folic Acid [B-Complex Tablet] 1 tab PO DAILY 09/07/20 Atorvastatin Calcium 40 mg PO QPM 05/08/21 Liothyronine [Cytomel] 25 mcg PO QDAC 05/08/21 Albuterol 2.5 mg INH QID PRN 09/15/21 Furosemide [Lasix] 40 mg PO DAILY 09/15/21 Objective - Vital Signs/Intake & Output Reviewed Vital Signs: Yes Vital Signs: Vital Signs x48h Temp Pulse Resp BP Pulse Ox 10/17/21 15:56 36.8 C 81 23 130/54 L 97 Intake & Output: Intake & Output 10/14/21 10/15/21 10/16/21 10/17/21 23:59 23:59 23:59 23:59 Intake Total 720 818 635 7294 Output Total 700 700 950 Balance 20 550 200 260 - Objective General Appearance: positive: No acute distress, Alert Eyes Bilateral: positive: Normal inspection, Conjunctivae nml ENT: positive: ENT inspection nml, Other (BiPAP mask in place.) Neck: positive: Nml inspection Respiratory: positive: No respiratory distress, Other (Breath sounds diminished bilaterally) Cardiovascular: positive: Regular rate & rhythm. negative: Tachycardia Skin: positive: Warm, Dry, Other (Some mild erythema over bilateral lower extremities over the ankle. Chronic venous stasis changes noted.) Extremities: positive: Pedal edema (Trace to +1 in the bilateral lower extremities) Neurologic/Psychiatric: negative: Disoriented to person, Disoriented to place - Lab Results Fish Bones: 10/11/21 17:33 10/11/21 18:07 Other Labs: Lab Results x24hrs 10/17/21 10/17/21 10/17/21 Range/Units 16:34 11:10 07:30 POC Whole Bld Glucose 103 H 132 H 101 H (70 - 100) mg/dL 10/16/21 10/16/21 Range/Units 20:50 16:34 POC Whole Bld Glucose 145 H 111 H (70 - 100) mg/dL Assessment/Plan - Problem List (1) Physical deconditioning Impression: She continues work with PT and is progressing slowly each day. We will continue with PT/OT as we work on long-term placement. (2) Chronic respiratory failure with hypoxia and hypercapnia Impression: This is multifactorial likely secondary to her COPD, obesity with hypoventilation syndrome. She is on her baseline 3 L of oxygen which we we will continue during the day. She will continue with BiPAP in the evening. (3) COPD (chronic obstructive pulmonary disease) Impression: Stable and not in exacerbation. She is on her 3 L of oxygen at baseline. We will start her on Perforomist and Pulmicort given we do not have tiotropium on formulary. We will use albuterol as needed. (4) Chronic diastolic heart failure Impression: This does not appear to be in exacerbation. She is a little edematous but is not symptomatic. Most recent x-ray suggested pulmonary edema with a left pleural effusion. She had not been receiving her Lasix so this has been resumed today. (5) Pleural effusion, left Impression: This was evident on the most recent chest x-ray. She is not symptomatic. This likely due to CHF she will resume oral diuresis as mentioned above. If she becomes symptomatic then we can consider a thoracentesis. (6) Diabetes mellitus Impression: Stable. Continue metformin and carb controlled diet. Qualifiers: Diabetes mellitus type: type 2 (7) Hypothyroidism Impression: Continue Synthroid. (8) Chronic pain syndrome Impression: Stable. Continue home methadone and Lyrica.
[2021-10-17] MEDS: BUDESONIDE 0.5 MG/2 ML NEB INH SCH (20:13)
[2021-10-17] MEDS: FORMOTEROL FUMARATE NEB 20 MCG/2 ML INH SCH (20:15)
[2021-10-17] MEDS: ATORVASTATIN 40 MG TABLET PO SCH (21:01)
[2021-10-17] MEDS: SERTRALINE 50 MG TABLET PO SCH (21:01)
[2021-10-18] MEDS: SODIUM CHLORIDE FLUSH 0.9% 10 ML SYRINGE IVP SCH ×3 (00:32→17:13)
[2021-10-18] MEDS: LEVOTHYROXINE 125 MCG TABLET PO SCH (06:51)
[2021-10-18] MEDS: LIOTHYRONINE 25 MCG TABLET PO SCH (06:51)
[2021-10-18] MEDS: FORMOTEROL FUMARATE NEB 20 MCG/2 ML INH SCH ×2 (07:31→20:00)
[2021-10-18] MEDS: BUDESONIDE 0.5 MG/2 ML NEB INH SCH ×2 (07:31→20:00)
[2021-10-18] MEDS: INSULIN ASPART 300 UNIT/3 ML PEN SUBQ SCH ×4 (08:19→21:14)
[2021-10-18] MEDS: METFORMIN 500 MG PO SCH ×2 (08:21→17:13)
[2021-10-18] MEDS: amLODIPine 5 MG TABLET PO SCH (08:22)
[2021-10-18] MEDS: POTASSIUM CHLORIDE 10 MEQ CAPSULE PO SCH (08:22)
[2021-10-18] MEDS: guaiFENesin 600 MG TABLET PO SCH ×2 (08:22→21:09)
[2021-10-18] MEDS: PREGABALIN 25 MG CAPSULE PO SCH ×2 (08:22→21:10)
[2021-10-18] MEDS: ENOXAPARIN 60 MG/0.6 ML SYRINGE SUBQ SCH ×2 (08:23→21:09)
[2021-10-18] MEDS: CHOLECALCIFEROL 5,000 UNIT CAPSULE PO SCH (08:23)
[2021-10-18] MEDS: SACCHAROMYCES BOULARDII 250 MG CAPSULE PO SCH ×2 (08:23→17:12)
[2021-10-18] MEDS: polyethylene glycoL 3350 17 GM PACKET PO SCH (08:23)
[2021-10-18] MEDS: METHADONE 5 MG TABLET PO SCH ×2 (08:23→21:09)
[2021-10-18] MEDS: FUROSEMIDE 40 MG TABLET PO SCH (08:23)
[2021-10-18] MEDS: SENNA 8.6 MG TABLET PO SCH ×2 (08:27→21:10)
[2021-10-18] MEDS: DOCUSATE SODIUM 250 MG CAPSULE PO SCH ×2 (08:27→21:09)
[2021-10-18] MEDS: FERROUS SULFATE 325 MG TABLET PO SCH (11:41)
[2021-10-18] MEDS: ACETAMINOPHEN 325 MG TABLET PO PRN ×2 (13:20→22:39)
[2021-10-18] MEDS: oxyCODONE 5 MG TABLET PO PRN ×2 (13:20→22:39)
[2021-10-18] MEDS: ATORVASTATIN 40 MG TABLET PO SCH (21:09)
[2021-10-18] MEDS: SERTRALINE 50 MG TABLET PO SCH (21:10)
[2021-10-19] MEDS: SODIUM CHLORIDE FLUSH 0.9% 10 ML SYRINGE IVP SCH ×3 (00:04→17:15)
[2021-10-19] MEDS: oxyCODONE 5 MG TABLET PO PRN ×2 (06:53→19:34)
[2021-10-19] MEDS: LIOTHYRONINE 25 MCG TABLET PO SCH (06:53)
[2021-10-19] MEDS: LEVOTHYROXINE 125 MCG TABLET PO SCH (06:53)
[2021-10-19] MEDS: ACETAMINOPHEN 325 MG TABLET PO PRN ×2 (06:53→19:34)
[2021-10-19] MEDS: FORMOTEROL FUMARATE NEB 20 MCG/2 ML INH SCH ×2 (07:24→20:11)
[2021-10-19] MEDS: BUDESONIDE 0.5 MG/2 ML NEB INH SCH ×2 (07:24→20:11)
[2021-10-19] MEDS: INSULIN ASPART 300 UNIT/3 ML PEN SUBQ SCH ×4 (09:36→21:29)
[2021-10-19] MEDS: METFORMIN 500 MG PO SCH ×2 (09:37→17:14)
[2021-10-19] MEDS: PREGABALIN 25 MG CAPSULE PO SCH ×2 (09:38→21:29)
[2021-10-19] MEDS: SACCHAROMYCES BOULARDII 250 MG CAPSULE PO SCH ×2 (09:38→17:14)
[2021-10-19] MEDS: SENNA 8.6 MG TABLET PO SCH ×2 (09:38→21:30)
[2021-10-19] MEDS: POTASSIUM CHLORIDE 10 MEQ CAPSULE PO SCH (09:38)
[2021-10-19] MEDS: guaiFENesin 600 MG TABLET PO SCH ×2 (09:38→21:29)
[2021-10-19] MEDS: METHADONE 5 MG TABLET PO SCH ×2 (09:38→21:29)
[2021-10-19] MEDS: ENOXAPARIN 60 MG/0.6 ML SYRINGE SUBQ SCH ×2 (09:39→21:28)
[2021-10-19] MEDS: FUROSEMIDE 40 MG TABLET PO SCH (09:39)
[2021-10-19] MEDS: CHOLECALCIFEROL 5,000 UNIT CAPSULE PO SCH (09:39)
[2021-10-19] MEDS: polyethylene glycoL 3350 17 GM PACKET PO SCH (09:40)
[2021-10-19] MEDS: DOCUSATE SODIUM 250 MG CAPSULE PO SCH ×2 (09:40→21:29)
[2021-10-19] MEDS: amLODIPine 5 MG TABLET PO SCH (09:40)
[2021-10-19] MEDS: FERROUS SULFATE 325 MG TABLET PO SCH (11:27)
[2021-10-19] MEDS: SERTRALINE 50 MG TABLET PO SCH (21:29)
[2021-10-19] MEDS: ATORVASTATIN 40 MG TABLET PO SCH (21:29)
[2021-10-20] MEDS: SODIUM CHLORIDE FLUSH 0.9% 10 ML SYRINGE IVP SCH ×3 (00:25→17:14)
[2021-10-20] MEDS: LEVOTHYROXINE 125 MCG TABLET PO SCH (06:40)
[2021-10-20] MEDS: LIOTHYRONINE 25 MCG TABLET PO SCH (06:44)
[2021-10-20] MEDS: FORMOTEROL FUMARATE NEB 20 MCG/2 ML INH SCH ×2 (09:04→19:10)
[2021-10-20] MEDS: BUDESONIDE 0.5 MG/2 ML NEB INH SCH ×2 (09:04→19:10)
[2021-10-20] MEDS: INSULIN ASPART 300 UNIT/3 ML PEN SUBQ SCH ×4 (09:30→20:45)
[2021-10-20] MEDS: SACCHAROMYCES BOULARDII 250 MG CAPSULE PO SCH ×2 (09:31→17:12)
[2021-10-20] MEDS: polyethylene glycoL 3350 17 GM PACKET PO SCH (09:31)
[2021-10-20] MEDS: ENOXAPARIN 60 MG/0.6 ML SYRINGE SUBQ SCH ×2 (09:31→20:40)
[2021-10-20] MEDS: METFORMIN 500 MG PO SCH ×2 (09:31→17:12)
[2021-10-20] MEDS: amLODIPine 5 MG TABLET PO SCH (09:31)
[2021-10-20] MEDS: PREGABALIN 25 MG CAPSULE PO SCH ×2 (09:31→20:39)
[2021-10-20] MEDS: CHOLECALCIFEROL 5,000 UNIT CAPSULE PO SCH (09:32)
[2021-10-20] MEDS: FUROSEMIDE 40 MG TABLET PO SCH (09:32)
[2021-10-20] MEDS: guaiFENesin 600 MG TABLET PO SCH ×2 (09:32→20:39)
[2021-10-20] MEDS: ACETAMINOPHEN 325 MG TABLET PO PRN ×2 (09:32→20:11)
[2021-10-20] MEDS: SENNA 8.6 MG TABLET PO SCH ×2 (09:32→20:41)
[2021-10-20] MEDS: METHADONE 5 MG TABLET PO SCH ×2 (09:32→20:39)
[2021-10-20] MEDS: POTASSIUM CHLORIDE 10 MEQ CAPSULE PO SCH (09:32)
[2021-10-20] MEDS: DOCUSATE SODIUM 250 MG CAPSULE PO SCH ×2 (09:32→20:40)
[2021-10-20] MEDS: FERROUS SULFATE 325 MG TABLET PO SCH (11:57)
[2021-10-20] MEDS: oxyCODONE 5 MG TABLET PO PRN ×2 (12:54→20:11)
[2021-10-20] MEDS: ATORVASTATIN 40 MG TABLET PO SCH (20:39)
[2021-10-20] MEDS: SERTRALINE 50 MG TABLET PO SCH (20:40)
[2021-10-21] MEDS: SODIUM CHLORIDE FLUSH 0.9% 10 ML SYRINGE IVP SCH ×3 (01:08→17:27)
[2021-10-21] MEDS: LIOTHYRONINE 25 MCG TABLET PO SCH (06:39)
[2021-10-21] MEDS: LEVOTHYROXINE 125 MCG TABLET PO SCH (06:39)
[2021-10-21] MEDS: FORMOTEROL FUMARATE NEB 20 MCG/2 ML INH SCH ×2 (07:08→20:23)
[2021-10-21] MEDS: BUDESONIDE 0.5 MG/2 ML NEB INH SCH ×2 (07:09→20:23)
[2021-10-21] MEDS: ENOXAPARIN 60 MG/0.6 ML SYRINGE SUBQ SCH ×2 (09:13→21:24)
[2021-10-21] MEDS: polyethylene glycoL 3350 17 GM PACKET PO SCH (09:13)
[2021-10-21] MEDS: SACCHAROMYCES BOULARDII 250 MG CAPSULE PO SCH ×2 (09:14→17:26)
[2021-10-21] MEDS: PREGABALIN 25 MG CAPSULE PO SCH ×2 (09:14→21:21)
[2021-10-21] MEDS: POTASSIUM CHLORIDE 10 MEQ CAPSULE PO SCH (09:14)
[2021-10-21] MEDS: amLODIPine 5 MG TABLET PO SCH (09:14)
[2021-10-21] MEDS: CHOLECALCIFEROL 5,000 UNIT CAPSULE PO SCH (09:14)
[2021-10-21] MEDS: METHADONE 5 MG TABLET PO SCH ×2 (09:14→21:19)
[2021-10-21] MEDS: INSULIN ASPART 300 UNIT/3 ML PEN SUBQ SCH ×4 (09:14→21:23)
[2021-10-21] MEDS: FUROSEMIDE 40 MG TABLET PO SCH (09:14)
[2021-10-21] MEDS: guaiFENesin 600 MG TABLET PO SCH ×2 (09:14→21:21)
[2021-10-21] MEDS: METFORMIN 500 MG PO SCH ×2 (09:15→17:26)
[2021-10-21] MEDS: DOCUSATE SODIUM 250 MG CAPSULE PO SCH ×2 (09:16→21:26)
[2021-10-21] MEDS: SENNA 8.6 MG TABLET PO SCH ×2 (09:17→21:26)
[2021-10-21] MEDS: FERROUS SULFATE 325 MG TABLET PO SCH (11:52)
[2021-10-21] MEDS: oxyCODONE 5 MG TABLET PO PRN (16:00)
[2021-10-21] MEDS: ATORVASTATIN 40 MG TABLET PO SCH (21:20)
[2021-10-21] MEDS: SERTRALINE 50 MG TABLET PO SCH (21:30)
[2021-10-22] MEDS: LEVOTHYROXINE 125 MCG TABLET PO SCH (05:36)
[2021-10-22] MEDS: SODIUM CHLORIDE FLUSH 0.9% 10 ML SYRINGE IVP SCH ×3 (05:36→18:13)
[2021-10-22] MEDS: LIOTHYRONINE 25 MCG TABLET PO SCH (05:36)
[2021-10-22] MEDS: INSULIN ASPART 300 UNIT/3 ML PEN SUBQ SCH ×4 (07:54→22:04)
[2021-10-22] MEDS: BUDESONIDE 0.5 MG/2 ML NEB INH SCH ×2 (08:05→21:25)
[2021-10-22] MEDS: FORMOTEROL FUMARATE NEB 20 MCG/2 ML INH SCH ×2 (08:05→21:25)
[2021-10-22] MEDS: DOCUSATE SODIUM 250 MG CAPSULE PO SCH ×2 (08:09→22:04)
[2021-10-22] MEDS: SENNA 8.6 MG TABLET PO SCH ×2 (08:09→22:06)
[2021-10-22] MEDS: CHOLECALCIFEROL 5,000 UNIT CAPSULE PO SCH (08:10)
[2021-10-22] MEDS: guaiFENesin 600 MG TABLET PO SCH ×2 (08:10→22:04)
[2021-10-22] MEDS: SACCHAROMYCES BOULARDII 250 MG CAPSULE PO SCH ×2 (08:10→18:13)
[2021-10-22] MEDS: FUROSEMIDE 40 MG TABLET PO SCH (08:10)
[2021-10-22] MEDS: PREGABALIN 25 MG CAPSULE PO SCH ×2 (08:10→22:04)
[2021-10-22] MEDS: ENOXAPARIN 60 MG/0.6 ML SYRINGE SUBQ SCH ×2 (08:10→22:02)
[2021-10-22] MEDS: POTASSIUM CHLORIDE 10 MEQ CAPSULE PO SCH (08:10)
[2021-10-22] MEDS: METHADONE 5 MG TABLET PO SCH ×2 (08:10→22:12)
[2021-10-22] MEDS: METFORMIN 500 MG PO SCH ×2 (08:10→18:12)
[2021-10-22] MEDS: amLODIPine 5 MG TABLET PO SCH (08:11)
[2021-10-22] MEDS: polyethylene glycoL 3350 17 GM PACKET PO SCH (08:11)
[2021-10-22] MEDS: FERROUS SULFATE 325 MG TABLET PO SCH (11:55)
[2021-10-22] MEDS: ACETAMINOPHEN 325 MG TABLET PO PRN (11:55)
[2021-10-22] MEDS: oxyCODONE 5 MG TABLET PO PRN (11:55)
[2021-10-22] MEDS: ATORVASTATIN 40 MG TABLET PO SCH (22:03)
[2021-10-22] MEDS: SERTRALINE 50 MG TABLET PO SCH (22:04)
[2021-10-23] MEDS: SODIUM CHLORIDE FLUSH 0.9% 10 ML SYRINGE IVP SCH ×3 (00:29→16:48)
[2021-10-23] MEDS: oxyCODONE 5 MG TABLET PO PRN ×3 (05:33→19:16)
[2021-10-23] MEDS: ACETAMINOPHEN 325 MG TABLET PO PRN ×3 (05:34→19:16)
[2021-10-23] MEDS: LEVOTHYROXINE 125 MCG TABLET PO SCH (06:20)
[2021-10-23] MEDS: LIOTHYRONINE 25 MCG TABLET PO SCH (06:20)
[2021-10-23] MEDS: FORMOTEROL FUMARATE NEB 20 MCG/2 ML INH SCH (07:03)
[2021-10-23] MEDS: BUDESONIDE 0.5 MG/2 ML NEB INH SCH ×2 (07:03→21:23)
[2021-10-23] MEDS: INSULIN ASPART 300 UNIT/3 ML PEN SUBQ SCH ×4 (07:30→21:22)
[2021-10-23] MEDS: polyethylene glycoL 3350 17 GM PACKET PO SCH (07:52)
[2021-10-23] MEDS: ENOXAPARIN 60 MG/0.6 ML SYRINGE SUBQ SCH ×2 (07:53→21:22)
[2021-10-23] MEDS: SACCHAROMYCES BOULARDII 250 MG CAPSULE PO SCH ×2 (07:54→16:54)
[2021-10-23] MEDS: METFORMIN 500 MG PO SCH ×2 (07:54→16:55)
[2021-10-23] MEDS: PREGABALIN 25 MG CAPSULE PO SCH ×2 (07:54→21:22)
[2021-10-23] MEDS: FUROSEMIDE 40 MG TABLET PO SCH (07:55)
[2021-10-23] MEDS: amLODIPine 5 MG TABLET PO SCH (07:55)
[2021-10-23] MEDS: CHOLECALCIFEROL 5,000 UNIT CAPSULE PO SCH (07:55)
[2021-10-23] MEDS: POTASSIUM CHLORIDE 10 MEQ CAPSULE PO SCH (07:55)
[2021-10-23] MEDS: guaiFENesin 600 MG TABLET PO SCH ×2 (07:55→21:21)
[2021-10-23] MEDS: METHADONE 5 MG TABLET PO SCH ×2 (07:55→21:22)
[2021-10-23] MEDS: DOCUSATE SODIUM 250 MG CAPSULE PO SCH ×2 (07:56→21:22)
[2021-10-23] MEDS: SENNA 8.6 MG TABLET PO SCH ×2 (07:56→21:23)
[2021-10-23] MEDS: FERROUS SULFATE 325 MG TABLET PO SCH (11:39)
[2021-10-23] MEDS: SERTRALINE 50 MG TABLET PO SCH (21:21)
[2021-10-23] MEDS: ATORVASTATIN 40 MG TABLET PO SCH (21:22)
[2021-10-24] MEDS: SODIUM CHLORIDE FLUSH 0.9% 10 ML SYRINGE IVP SCH ×3 (00:12→16:31)
[2021-10-24] MEDS: ALBUTEROL NEB 2.5 MG/3 ML INH PRN (01:12)
[2021-10-24] MEDS: LIOTHYRONINE 25 MCG TABLET PO SCH (05:47)
[2021-10-24] MEDS: ACETAMINOPHEN 325 MG TABLET PO PRN (05:47)
[2021-10-24] MEDS: LEVOTHYROXINE 125 MCG TABLET PO SCH (05:47)
[2021-10-24] MEDS: oxyCODONE 5 MG TABLET PO PRN (05:48)
[2021-10-24] MEDS: BUDESONIDE 0.5 MG/2 ML NEB INH SCH ×2 (07:16→18:14)
[2021-10-24] MEDS: FORMOTEROL FUMARATE NEB 20 MCG/2 ML INH SCH ×3 (07:16→18:14)
[2021-10-24] MEDS: INSULIN ASPART 300 UNIT/3 ML PEN SUBQ SCH ×2 (08:06→12:49)
[2021-10-24] MEDS: METFORMIN 500 MG PO SCH ×2 (08:06→16:31)
[2021-10-24] MEDS: ENOXAPARIN 60 MG/0.6 ML SYRINGE SUBQ SCH ×2 (08:07→21:10)
[2021-10-24] MEDS: polyethylene glycoL 3350 17 GM PACKET PO SCH (08:07)
[2021-10-24] MEDS: METHADONE 5 MG TABLET PO SCH ×2 (08:07→21:10)
[2021-10-24] MEDS: FUROSEMIDE 40 MG TABLET PO SCH (08:08)
[2021-10-24] MEDS: SENNA 8.6 MG TABLET PO SCH ×2 (08:08→21:11)
[2021-10-24] MEDS: SACCHAROMYCES BOULARDII 250 MG CAPSULE PO SCH ×2 (08:09→16:31)
[2021-10-24] MEDS: amLODIPine 5 MG TABLET PO SCH (08:09)
[2021-10-24] MEDS: POTASSIUM CHLORIDE 10 MEQ CAPSULE PO SCH (08:09)
[2021-10-24] MEDS: DOCUSATE SODIUM 250 MG CAPSULE PO SCH ×2 (08:11→21:11)
[2021-10-24] MEDS: CHOLECALCIFEROL 5,000 UNIT CAPSULE PO SCH (08:11)
[2021-10-24] MEDS: guaiFENesin 600 MG TABLET PO SCH ×2 (08:11→21:11)
[2021-10-24] MEDS: PREGABALIN 25 MG CAPSULE PO SCH ×2 (08:12→21:10)
[2021-10-24] MEDS: FERROUS SULFATE 325 MG TABLET PO SCH (12:23)
[2021-10-24] MEDS: SERTRALINE 50 MG TABLET PO SCH (21:11)
[2021-10-24] MEDS: ATORVASTATIN 40 MG TABLET PO SCH (21:11)
[2021-10-25] MEDS: SODIUM CHLORIDE FLUSH 0.9% 10 ML SYRINGE IVP SCH ×3 (00:23→17:19)
[2021-10-25] MEDS: FORMOTEROL FUMARATE NEB 20 MCG/2 ML INH SCH ×2 (07:23→23:55)
[2021-10-25] MEDS: BUDESONIDE 0.5 MG/2 ML NEB INH SCH ×2 (07:24→23:55)
[2021-10-25] MEDS: INSULIN ASPART 300 UNIT/3 ML PEN SUBQ SCH (07:33)
[2021-10-25] MEDS: DOCUSATE SODIUM 250 MG CAPSULE PO SCH ×2 (07:34→21:24)
[2021-10-25] MEDS: SENNA 8.6 MG TABLET PO SCH ×2 (07:35→21:25)
[2021-10-25] MEDS: LEVOTHYROXINE 125 MCG TABLET PO SCH (07:44)
[2021-10-25] MEDS: LIOTHYRONINE 25 MCG TABLET PO SCH (07:44)
[2021-10-25] MEDS: POTASSIUM CHLORIDE 10 MEQ CAPSULE PO SCH (08:28)
[2021-10-25] MEDS: METFORMIN 500 MG PO SCH ×2 (08:28→17:18)
[2021-10-25] MEDS: amLODIPine 5 MG TABLET PO SCH (08:28)
[2021-10-25] MEDS: SACCHAROMYCES BOULARDII 250 MG CAPSULE PO SCH ×2 (08:29→17:18)
[2021-10-25] MEDS: CHOLECALCIFEROL 5,000 UNIT CAPSULE PO SCH (08:29)
[2021-10-25] MEDS: FUROSEMIDE 40 MG TABLET PO SCH (08:30)
[2021-10-25] MEDS: guaiFENesin 600 MG TABLET PO SCH ×2 (08:30→21:24)
[2021-10-25] MEDS: METHADONE 5 MG TABLET PO SCH ×2 (08:30→21:24)
[2021-10-25] MEDS: PREGABALIN 25 MG CAPSULE PO SCH ×2 (08:30→21:24)
[2021-10-25] MEDS: polyethylene glycoL 3350 17 GM PACKET PO SCH (08:31)
[2021-10-25] MEDS: ENOXAPARIN 60 MG/0.6 ML SYRINGE SUBQ SCH ×2 (08:31→21:24)
[2021-10-25] MEDS: FERROUS SULFATE 325 MG TABLET PO SCH (12:08)
--- NOTE | 2021-10-25 15:46 | PROVIDER PROGRESS NOTE ---
Assessment/Plan - Problem List (1) Physical deconditioning Assessment/Plan: She continues to work with PT and is progressing slowly each day. We will continue with PT/OT as we work on long-term placement/discharge disposition. (2) Chronic respiratory failure with hypoxia and hypercapnia Impression: This is multifactorial: likely secondary to her COPD, and her morbid obesity with hypoventilation syndrome. Today a new oximetry exercise test was conducted. O2 sat at rest, on room air is 87%. O2 sat at rest on 2 L/min nasal cannula is 93%. O2 sat with exertion, on 2 L/min is 85%; O2 sat with exertion on 3 L/min is 87%; O2 sat with exertion on 4 L/min is 88%; finally O2 sat with exertion on 5 L/min is 91%. I am ordering home O2, 2 L/min at rest and 5 L/min with exertion, to treat her COPD and chronic respiratory failure. (3) COPD (chronic obstructive pulmonary disease) Impression: Stable and not in exacerbation. She is on her 2-3 L/min of oxygen at rest, 5- 6L/min O2 with activity and BIPAP during sleep. She is on Perforomist and Pulmicort since we do not have tiotropium on formulary, and on albuterol as nee ded. (4) Chronic diastolic heart failure Impression: This is stable and she is not in exacerbation. She is a little edematous but is not symptomatic. Her last CXR showed pulmonary edema with a left pleural effusion. She had not been receiving her Lasix so that was resumed and she has been on it for several weeks now. (5) Pleural effusion, left Impression: This was evident on the last chest x-ray. This was likely due to chronic CHF. She is clinically stable on diuretic and no thoracentesis was needed. (6) Diabetes mellitus Impression: Stable. Continue metformin and carb controlled diet. We decreased her fingersticks checks to once a day, in a.m., in preparation for discharge (possibly to home, where she will monitor glu this way). Qualifiers: Diabetes mellitus type: type 2 (7) Hypothyroidism Impression: Continuing her Synthroid. (8) Chronic pain syndrome Impression: Stable. Continue home doses of Methadone and Lyrica. (9) Morbid obesity BMI 60-65 Impression: As per Hx. Equipment that is bariatric is required. - Current Meds Current Meds: Current Medications Generic Name Dose Route Start Last Admin Trade Name Freq PRN Reason Stop Dose Admin Acetaminophen 650 mg 10/08/21 16:08 10/24/21 05:47 Acetaminophen 325 Mg Tablet PO 650 mg Q4HR PRN Administration Pain or Fever > 38C (100.4F) Albuterol 2.5 mg 10/08/21 16:08 10/24/21 01:12 Albuterol Neb 2.5 Mg/3 Ml INH 2.5 mg QID PRN Administration Shortness of Air/Wheezing Amlodipine Besylate 2.5 mg 10/10/21 09:00 10/25/21 08:28 Amlodipine 5 Mg Tablet PO 2.5 mg DAILY NATHAN Administration Atorvastatin Calcium 40 mg 10/08/21 21:00 10/24/21 21:11 Atorvastatin 40 Mg Tablet PO 40 mg QPM NATHAN Administration Budesonide 0.5 mg 10/17/21 19:00 10/25/21 07:24 Budesonide 0.5 Mg/2 Ml Neb INH 0.5 mg RTBID NATHAN Administration Carboxymethylcellulose 1 drops 10/09/21 02:47 10/09/21 04:50 Carboxymethylcellulose Ophth Drops EACHEYE 1 applic PRN PRN Administration Dry Eye Cholecalciferol 5,000 unit 10/09/21 09:00 10/25/21 08:29 Cholecalciferol 5,000 Unit Capsule PO 5,000 unit DAILY NATHAN Administration Docusate Sodium 250 - 500 mg 10/13/21 17:00 10/25/21 07:34 Docusate Sodium 250 Mg Capsule PO Not Given BID NATHAN Enoxaparin Sodium 60 mg 10/10/21 10:00 10/25/21 08:31 Enoxaparin 60 Mg/0.6 Ml Syringe SUBQ 60 mg BID NATHAN Administration Ferrous Sulfate 325 mg 10/17/21 12:00 10/25/21 12:08 Ferrous Sulfate 325 Mg Tablet PO 325 mg QDLUNCH NATHAN Administration Formoterol Fumarate 20 mcg 10/17/21 19:00 10/25/21 07:23 Formoterol Fumarate Neb 20 Mcg/2 Ml INH 20 mcg RTBID NATHAN Administration Furosemide 40 mg 10/17/21 09:00 10/25/21 08:30 Furosemide 40 Mg Tablet PO 40 mg DAILY NATHAN Administration Guaifenesin 600 mg 10/12/21 09:00 10/25/21 08:30 Guaifenesin 600 Mg Tablet PO 600 mg BID NATHAN Administration Insulin Aspart 2 - 10 unit 10/24/21 16:23 10/25/21 07:33 Insulin Aspart 300 Unit/3 Ml Pen SUBQ Not Given 0800 [facility] Protocol Levothyroxine Sodium 125 mcg 10/09/21 07:00 10/25/21 07:44 Levothyroxine 125 Mcg Tablet PO 125 mcg QDAC NATHAN Administration Liothyronine Sodium 25 mcg 10/09/21 07:00 10/25/21 07:44 Liothyronine 25 Mcg Tablet PO 25 mcg QDAC NATHAN Administration Lorazepam 0.5 mg 10/09/21 01:00 10/11/21 01:38 Lorazepam 0.5 Mg Tablet PO 0.5 mg Q12H PRN Administration Anxiety Methadone HCl 10 mg 10/08/21 21:00 10/25/21 08:30 Methadone 5 Mg Tablet PO 10 mg BID NATHAN Administration Multi-Ingredient Ointment 1 applic 10/16/21 22:15 10/17/21 06:05 Zinc Oxide 20% Oint 30 Gm Tube TOP 1 applic PRN PRN Administration Skin Care Oxycodone HCl 10 mg 10/08/21 15:01 10/24/21 05:48 Oxycodone 5 Mg Tablet PO 10 mg Q6HR PRN Administration Pain 8 to 10 Patient Own Med: 1 each 10/10/21 10:00 10/25/21 08:28 Metformin Er 500mg PO 1 each Tab BIDWM NATHAN Administration Polyethylene Glycol 17 gm 10/10/21 09:00 10/25/21 08:31 Polyethylene Glycol 3350 17 Gm Packet PO 17 gm DAILY NATHAN Administration Potassium Chloride 10 meq 10/09/21 08:00 10/25/21 08:28 Potassium Chloride 10 Meq Capsule PO 10 meq DAILYWM NATHAN Administration Pregabalin 50 mg 10/08/21 21:00 10/25/21 08:30 Pregabalin 25 Mg Capsule PO 50 mg BID NATHAN Administration Saccharomyces Boulardii 250 mg 10/13/21 17:00 10/25/21 08:29 Saccharomyces Boulardii 250 Mg Capsule PO 250 mg BIDWM NATHAN Administration Senna 8.6 - 17.2 mg 10/13/21 17:00 10/25/21 07:35 Senna 8.6 Mg Tablet PO Not Given BID NATHAN Sertraline HCl 150 mg 10/08/21 21:00 10/24/21 21:11 Sertraline 50 Mg Tablet PO 150 mg HS NATHAN Administration Sodium Chloride 10 ml 10/09/21 09:00 10/25/21 10:05 Sodium Chloride Flush 0.9% 10 Ml Syringe IVP Not Given 0100,0900,1700 NATHAN Sodium Chloride 10 ml 10/09/21 08:45 10/17/21 09:45 Sodium Chloride Flush 0.9% 10 Ml Syringe IVP 10 ml PRN PRN Administration Per Line Care protocol Sodium Chloride 20 ml 10/09/21 08:45 10/10/21 05:54 Sodium Chloride Flush 0.9% 10 Ml Syringe IVP 20 ml PRN PRN Administration After Blood Draw - Lab Result Fish Bone Diagrams: 10/11/21 17:33 10/11/21 18:07 Subjective - Subjective Patient Reports: Other (Does not want heat in her new BIPAP unit that was delivered from [employer]. The previous night, she refused to wear iot more than 2 hours because of this.) Nursing Reports: Other (Today, the RT Bernardo, turned off the heat setting on her BIPAP and she trialed it for a nap and tolerated it.) Objective Vital Signs: Vital Signs - 24 hr 10/24/21 10/24/21 10/25/21 18:16 23:30 03:15 Temperature Heart Rate 84 73 82 Heart Rate [ Radial] Respiratory 20 Rate Blood Pressure [Right Radial artery] O2 Saturation 10/25/21 10/25/21 07:31 07:39 Temperature 36.6 C Heart Rate 75 Heart Rate [ 87 Radial] Respiratory 20 17 Rate Blood Pressure 148/59 H [Right Radial artery] O2 Saturation 97 Oxygen O2 Source Nasal cannula I&O (Last 24 Hrs): Intake and Output Totals x24h 10/23/21 10/24/21 10/25/21 23:59 23:59 23:59 Intake Total 1630 820 900 Output Total 2000 650 Balance -370 170 900 General: Alert, Oriented x3 HEENT: Mucous membr. moist/pink Neck: Other (Obese and cannot eval JVP) Neuro: Alert, Non Focal Cardiovascular: Other (Distant heart sounds due to morbid obesity and large breasts) Respiratory: No respiratory distress (wearing O2 by n.c.) Abdomen: Other (Obese with pannus) Extremities: No tenderness/swelling, Other (Chronic venous stasis discoloration. Trace pedal edema.) - Results Results: Laboratory Results WBC 5.7 x10^3/uL (4.8-10.8) 10/11/21 17: RBC 3.68 10^6/uL (4.20-5.40) L 10/11/21 17: Hgb 9.5 g/dL (12.0-16.0) L 10/11/21 17:33 Hct 32.7 % (37.0-47.0) L 10/11/21 17: MCV 88.9 fL (81.0-99.0) 10/11/21 17: MCH 25.8 pg (27.0-31.0) L 10/11/21 17: MCHC 29.1 g/dL (32.0-36.0) L 10/11/21 17: RDW 19.7 % (12.0-15.0) H 10/11/21 17:33 Plt Count 188 10^3/uL (130-450) 10/11/21 17: MPV 10.2 fL (7.9-10.8) 10/11/21 17:33 Neut # (Auto) 4.0 10^3/uL (1.5-6.6) 10/11/21 17:33 Lymph # (Auto) 1.1 10^3/uL (1.5-3.5) L 10/11/21 17:33 Hunt # (Auto) 0.5 10^3/uL (0.0-1.0) 10/11/21 17:33 Eos # (Auto) 0.1 10^3/uL (0.0-0.7) 10/11/21 17: Baso # (Auto) 0.0 10^3/uL (0.0-0.1) 10/11/21 17: Absolute Nucleated RBC 0.00 x10^3/uL 10/11/21 17: Nucleated RBC % 0.0 /100WBC 10/11/21 17:33 Bld Gas Analysis Time 213210/11/21 21:23 Sample Site RIGHT RADIAL 10/11/21 21:23 ABG pH 7.34 (7.35-7.45) L 10/11/21 21:23 ABG pCO2 67 mmHg (34-45) H* 10/11/21 21: ABG pO2 79 mmHg (80-100) L 10/11/21 21: ABG HCO3 35.5 mmol/L (22.0-26.0) H 10/11/21 21: ABG Total CO2 37.6 MMOL/L (21.0-29.0) H 10/11/21 21:23 ABG O2 Saturation 95 % (94-98) 10/11/21 21: ABG Base Excess 8.1 mmol/L (-2.0-3.0) H 10/11/21 21: Brent Test POSITIVE 10/11/21 21: Respiration Rate 16 b/min 10/11/21 21: O2 Delivery Device BiPAP 10/11/21 21:23 Vent Mode SYNCHRONOUS/TIMES 10/11/21 21:23 FiO2 35.00 10/11/21 21:23 PEEP 0 cmH2O 10/11/21 10:40 EPAP 5 cmH2O 10/11/21 21:23 IPAP 16 cmH2O 10/11/21 21:23 Sodium 138 mmol/L (135-145) 10/11/21 18:07 Potassium 4.0 mmol/L (3.5-5.0) 10/11/21 18:07 Chloride 93 mmol/L (101-111) L 10/11/21 18:07 Carbon Dioxide 38 mmol/L (21-32) H 10/11/21 18:07 Anion Gap 7.0 (6-13) 10/11/21 18:07 BUN 40 mg/dL (6-20) H 10/11/21 18:07 Creatinine 1.1 mg/dL (0.4-1.0) H 10/11/21 18:07 Estimated GFR (MDRD) 50 (>89) L 10/11/21 18:07 Glucose 129 mg/dL (70-100) H 10/11/21 18:07 POC Whole Bld Glucose 108 mg/dL (70 - 100) H 10/25/21 07:27 Calcium 8.6 mg/dL (8.5-10.3) 10/11/21 18:07 Urine Color YELLOW 10/11/21 18:35 Urine Clarity CLEAR (CLEAR) 10/11/21 18:35 Urine pH 5.5 PH (5.0-7.5) 10/11/21 18:35 Ur Specific [place] 1.020 (1.002-1.030) 10/11/21 18:35 Urine Protein NEGATIVE mg/dL (NEGATIVE) 10/11/21 18:35 Urine Glucose (UA) NEGATIVE mg/dL (NEGATIVE) 10/11/21 18:35 Urine Ketones NEGATIVE mg/dL (NEGATIVE) 10/11/21 18:35 Urine Occult Blood TRACE-INTA (NEGATIVE) 10/11/21 18:35 Urine Nitrite NEGATIVE (NEGATIVE) 10/11/21 18:35 Urine Bilirubin NEGATIVE (NEGATIVE) 10/11/21 18:35 Urine Urobilinogen 0.2 (NORMAL) E.U./dL (NORMAL) 10/11/21 18:35 Ur Leukocyte Esterase NEGATIVE (NEGATIVE) 10/11/21 18:35 Ur Microscopic Review NOT INDICATED 10/11/21 18:35 Urine Culture Comments NOT INDICATED 10/11/21 18:35 - Procedures Procedures: Procedures INSERTION OF ENDOTRACHEAL AIRWAY INTO TRACHEA, VIA OPENING (09/14/21) INSERTION OF INFUSION DEV INTO SUP VENA CAVA, PERC APPROACH (09/14/21) INSERTION OF MONITORING DEVICE INTO UP ART, PERC APPROACH (09/14/21) RESPIRATORY VENTILATION, 24-96 CONSECUTIVE HOURS (09/14/21)
[2021-10-25] MEDS: ACETAMINOPHEN 325 MG TABLET PO PRN (20:34)
[2021-10-25] MEDS: oxyCODONE 5 MG TABLET PO PRN (20:34)
[2021-10-25] MEDS: ATORVASTATIN 40 MG TABLET PO SCH (21:24)
[2021-10-25] MEDS: SERTRALINE 50 MG TABLET PO SCH (21:24)
[2021-10-25] MEDS: LORazepam 0.5 MG TABLET PO PRN (23:11)
[2021-10-26] MEDS: SODIUM CHLORIDE FLUSH 0.9% 10 ML SYRINGE IVP SCH ×3 (01:56→17:00)
[2021-10-26] MEDS: FORMOTEROL FUMARATE NEB 20 MCG/2 ML INH SCH ×2 (07:26→19:00)
[2021-10-26] MEDS: BUDESONIDE 0.5 MG/2 ML NEB INH SCH ×2 (07:26→19:00)
[2021-10-26] MEDS: LIOTHYRONINE 25 MCG TABLET PO SCH (07:35)
[2021-10-26] MEDS: LEVOTHYROXINE 125 MCG TABLET PO SCH (07:35)
[2021-10-26] MEDS: INSULIN ASPART 300 UNIT/3 ML PEN SUBQ SCH (08:44)
[2021-10-26] MEDS: polyethylene glycoL 3350 17 GM PACKET PO SCH ×2 (08:45→09:21)
[2021-10-26] MEDS: METFORMIN 500 MG PO SCH ×2 (08:45→17:00)
[2021-10-26] MEDS: guaiFENesin 600 MG TABLET PO SCH ×2 (08:45→21:48)
[2021-10-26] MEDS: METHADONE 5 MG TABLET PO SCH ×2 (08:46→21:48)
[2021-10-26] MEDS: POTASSIUM CHLORIDE 10 MEQ CAPSULE PO SCH (08:46)
[2021-10-26] MEDS: SACCHAROMYCES BOULARDII 250 MG CAPSULE PO SCH ×2 (08:47→17:00)
[2021-10-26] MEDS: FUROSEMIDE 40 MG TABLET PO SCH (08:47)
[2021-10-26] MEDS: CHOLECALCIFEROL 5,000 UNIT CAPSULE PO SCH (08:47)
[2021-10-26] MEDS: amLODIPine 5 MG TABLET PO SCH (08:47)
[2021-10-26] MEDS: PREGABALIN 25 MG CAPSULE PO SCH ×2 (08:47→21:49)
[2021-10-26] MEDS: ENOXAPARIN 60 MG/0.6 ML SYRINGE SUBQ SCH ×2 (08:48→21:48)
[2021-10-26] MEDS: SENNA 8.6 MG TABLET PO SCH ×2 (08:48→21:48)
[2021-10-26] MEDS: DOCUSATE SODIUM 250 MG CAPSULE PO SCH ×2 (08:48→21:48)
[2021-10-26] MEDS: FERROUS SULFATE 325 MG TABLET PO SCH (11:28)
[2021-10-26] MEDS: ACETAMINOPHEN 325 MG TABLET PO PRN (18:07)
[2021-10-26] MEDS: oxyCODONE 5 MG TABLET PO PRN (18:08)
[2021-10-26] MEDS: ALBUTEROL NEB 2.5 MG/3 ML INH PRN (19:00)
[2021-10-26] MEDS: ATORVASTATIN 40 MG TABLET PO SCH (21:48)
[2021-10-26] MEDS: SERTRALINE 50 MG TABLET PO SCH (21:49)
[2021-10-27] MEDS: LORazepam 0.5 MG TABLET PO PRN (00:15)
[2021-10-27] MEDS: SODIUM CHLORIDE FLUSH 0.9% 10 ML SYRINGE IVP SCH ×3 (02:02→16:54)
[2021-10-27] MEDS: LEVOTHYROXINE 125 MCG TABLET PO SCH (06:36)
[2021-10-27] MEDS: LIOTHYRONINE 25 MCG TABLET PO SCH (06:36)
[2021-10-27] MEDS: ACETAMINOPHEN 325 MG TABLET PO PRN ×3 (06:39→22:56)
[2021-10-27] MEDS: oxyCODONE 5 MG TABLET PO PRN ×3 (06:40→22:56)
[2021-10-27] MEDS: FORMOTEROL FUMARATE NEB 20 MCG/2 ML INH SCH ×2 (07:30→21:14)
[2021-10-27] MEDS: BUDESONIDE 0.5 MG/2 ML NEB INH SCH ×2 (07:30→21:14)
[2021-10-27] MEDS: SACCHAROMYCES BOULARDII 250 MG CAPSULE PO SCH ×2 (08:10→16:58)
[2021-10-27] MEDS: POTASSIUM CHLORIDE 10 MEQ CAPSULE PO SCH (08:10)
[2021-10-27] MEDS: METFORMIN 500 MG PO SCH ×2 (08:11→11:29)
[2021-10-27] MEDS: INSULIN ASPART 300 UNIT/3 ML PEN SUBQ SCH (08:13)
[2021-10-27] MEDS: amLODIPine 5 MG TABLET PO SCH (08:15)
[2021-10-27] MEDS: PREGABALIN 25 MG CAPSULE PO SCH ×2 (08:15→21:14)
[2021-10-27] MEDS: guaiFENesin 600 MG TABLET PO SCH ×2 (08:16→21:14)
[2021-10-27] MEDS: FUROSEMIDE 40 MG TABLET PO SCH (08:16)
[2021-10-27] MEDS: CHOLECALCIFEROL 5,000 UNIT CAPSULE PO SCH (08:16)
[2021-10-27] MEDS: ENOXAPARIN 60 MG/0.6 ML SYRINGE SUBQ SCH ×2 (08:16→21:14)
[2021-10-27] MEDS: DOCUSATE SODIUM 250 MG CAPSULE PO SCH ×2 (08:17→21:14)
[2021-10-27] MEDS: SENNA 8.6 MG TABLET PO SCH ×2 (08:17→21:14)
[2021-10-27] MEDS: polyethylene glycoL 3350 17 GM PACKET PO SCH (08:17)
[2021-10-27] MEDS: METHADONE 5 MG TABLET PO SCH ×2 (08:21→21:14)
[2021-10-27] MEDS: FERROUS SULFATE 325 MG TABLET PO SCH (11:29)
--- NOTE | 2021-10-27 11:57 | PROVIDER PROGRESS NOTE ---
Assessment/Plan - Problem List (1) Physical deconditioning Assessment/Plan: She finished working with PT, since she met her goals of walking 10 feet in repeated walks with rest in between, in order to get to her bathroom, which she says requires a walk of 20 feet distance. With that, she is medically stable for discharge. (2) Chronic respiratory failure with hypoxia and hypercapnia Impression: This is multifactorial: secondary to her COPD, and her morbid obesity with hypoventilation syndrome. On 10/25/21, a new oximetry exercise test was conducted, and I ordered new home O2 setting which are: 2 L/min at rest and 5 L/min with exertion. Several days ago, her approved BIPAP device was delivered here and she needed changes with heat turned off, and pressure and O2 suppl adjusted, and she has been on this device for naps and at bedtime, and tolerates it. With these accomplished, she is medically stable for discharge. (3) COPD (chronic obstructive pulmonary disease) Impression: Stable and not in exacerbation. She is on her 2-3 L/min of oxygen at rest, 5- 6L/min O2 with activity and BIPAP during sleep. She is on Perforomist and Pulmicort since we do not have tiotropium on formulary, and on albuterol as needed. (4) Chronic diastolic heart failure Impression: This is stable and she is not in exacerbation. She is on Lasix to prevent severe edema and her HR is controlled. (5) Pleural effusion, left Impression: This was evident on the last chest x-ray, several weeks ago. It was likely due to chronic CHF. She is clinically stable on her oral diuretic and no thoracentesis was needed. (6) Diabetes mellitus Impression: Stable. We are continuing metformin and carb controlled diet. We decreased her fingersticks checks to once a day, in a.m., in preparation for discharge (possibly to home, where she will monitor glu this way). (7) Hypothyroidism Impression: Continuing her Synthroid. (8) Chronic pain syndrome Impression: Stable. Continuing her home doses of Methadone and Lyrica. (9) Morbid obesity BMI 60-65 Impression: As per Hx. Equipment that is bariatric is required. - Current Meds Current Meds: Current Medications Generic Name Dose Route Start Last Admin Trade Name Freq PRN Reason Stop Dose Admin Acetaminophen 650 mg 10/08/21 16:08 10/27/21 06:39 Acetaminophen 325 Mg Tablet PO 650 mg Q4HR PRN Administration Pain or Fever > 38C (100.4F) Albuterol 2.5 mg 10/08/21 16:08 10/26/21 19:00 Albuterol Neb 2.5 Mg/3 Ml INH 2.5 mg QID PRN Administration Shortness of Air/Wheezing Amlodipine Besylate 2.5 mg 10/10/21 09:00 10/27/21 08:15 Amlodipine 5 Mg Tablet PO 2.5 mg DAILY NATHAN Administration Atorvastatin Calcium 40 mg 10/08/21 21:00 10/26/21 21:48 Atorvastatin 40 Mg Tablet PO 40 mg QPM NATHAN Administration Budesonide 0.5 mg 10/17/21 19:00 10/27/21 07:30 Budesonide 0.5 Mg/2 Ml Neb INH 0.5 mg RTBID NATHAN Administration Carboxymethylcellulose 1 drops 10/09/21 02:47 10/09/21 04:50 Carboxymethylcellulose Ophth Drops EACHEYE 1 applic PRN PRN Administration Dry Eye Cholecalciferol 5,000 unit 10/09/21 09:00 10/27/21 08:16 Cholecalciferol 5,000 Unit Capsule PO 5,000 unit DAILY NATHAN Administration Docusate Sodium 250 - 500 mg 10/13/21 17:00 10/27/21 08:17 Docusate Sodium 250 Mg Capsule PO Not Given BID NATHAN Enoxaparin Sodium 60 mg 10/10/21 10:00 10/27/21 08:16 Enoxaparin 60 Mg/0.6 Ml Syringe SUBQ 60 mg BID NATHAN Administration Ferrous Sulfate 325 mg 10/17/21 12:00 10/27/21 11:29 Ferrous Sulfate 325 Mg Tablet PO 325 mg QDLUNCH NATHAN Administration Formoterol Fumarate 20 mcg 10/17/21 19:00 10/27/21 07:30 Formoterol Fumarate Neb 20 Mcg/2 Ml INH 20 mcg RTBID NATHAN Administration Furosemide 40 mg 10/17/21 09:00 10/27/21 08:16 Furosemide 40 Mg Tablet PO 40 mg DAILY NATHAN Administration Guaifenesin 600 mg 10/12/21 09:00 10/27/21 08:16 Guaifenesin 600 Mg Tablet PO 600 mg BID NATHAN Administration Insulin Aspart 2 - 10 unit 10/24/21 16:23 10/27/21 08:13 Insulin Aspart 300 Unit/3 Ml Pen SUBQ Not Given 0800 [facility] Protocol Levothyroxine Sodium 125 mcg 10/09/21 07:00 10/27/21 06:36 Levothyroxine 125 Mcg Tablet PO 125 mcg QDAC NATHAN Administration Liothyronine Sodium 25 mcg 10/09/21 07:00 10/27/21 06:36 Liothyronine 25 Mcg Tablet PO 25 mcg QDAC NATHAN Administration Lorazepam 0.5 mg 10/09/21 01:00 10/27/21 00:15 Lorazepam 0.5 Mg Tablet PO 0.5 mg Q12H PRN Administration Anxiety Methadone HCl 10 mg 10/08/21 21:00 10/27/21 08:21 Methadone 5 Mg Tablet PO 10 mg BID NATHAN Administration Multi-Ingredient Ointment 1 applic 10/16/21 22:15 10/17/21 06:05 Zinc Oxide 20% Oint 30 Gm Tube TOP 1 applic PRN PRN Administration Skin Care Oxycodone HCl 10 mg 10/08/21 15:01 10/27/21 06:40 Oxycodone 5 Mg Tablet PO 10 mg Q6HR PRN Administration Pain 8 to 10 Patient Own Med: 1 each 10/10/21 10:00 10/27/21 11:29 Metformin Er 500mg PO Not Given Tab BIDWM NATHAN Polyethylene Glycol 17 gm 10/10/21 09:00 10/27/21 08:17 Polyethylene Glycol 3350 17 Gm Packet PO Not Given DAILY NATHAN Potassium Chloride 10 meq 10/09/21 08:00 10/27/21 08:10 Potassium Chloride 10 Meq Capsule PO 10 meq DAILYWM NATHAN Administration Pregabalin 50 mg 10/08/21 21:00 10/27/21 08:15 Pregabalin 25 Mg Capsule PO 50 mg BID NATHAN Administration Saccharomyces Boulardii 250 mg 10/13/21 17:00 10/27/21 08:10 Saccharomyces Boulardii 250 Mg Capsule PO 250 mg BIDWM NATHAN Administration Senna 8.6 - 17.2 mg 10/13/21 17:00 10/27/21 08:17 Senna 8.6 Mg Tablet PO Not Given BID NATHAN Sertraline HCl 150 mg 10/08/21 21:00 10/26/21 21:49 Sertraline 50 Mg Tablet PO 150 mg HS NATHAN Administration Sodium Chloride 10 ml 10/09/21 09:00 10/27/21 08:17 Sodium Chloride Flush 0.9% 10 Ml Syringe IVP 10 ml 0100,0900,1700 NATHAN Administration Sodium Chloride 10 ml 10/09/21 08:45 10/17/21 09:45 Sodium Chloride Flush 0.9% 10 Ml Syringe IVP 10 ml PRN PRN Administration Per Line Care protocol Sodium Chloride 20 ml 10/09/21 08:45 10/10/21 05:54 Sodium Chloride Flush 0.9% 10 Ml Syringe IVP 20 ml PRN PRN Administration After Blood Draw - Lab Result Fish Bone Diagrams: 10/11/21 17:33 10/11/21 18:07 Subjective - Subjective Patient Reports: Resting Comfortably, No Complaints, Other (Patient calims she cannot be discharged) Objective Vital Signs: Vital Signs - 24 hr 10/26/21 10/26/21 10/27/21 15:32 19:00 07:30 Temperature 36.7 C 36.9 C Heart Rate 88 76 Heart Rate [ 82 87 Radial] Respiratory 21 20 20 Rate Blood Pressure 142/61 H 143/55 H [Right Radial artery] O2 Saturation 92 92 Oxygen O2 Source Nasal cannula I&O (Last 24 Hrs): Intake and Output Totals x24h 10/25/21 10/26/21 10/27/21 23:59 23:59 23:59 Intake Total 2089 1839 560 Balance 2089 1839 560 General: Alert, Oriented x3 HEENT: Mucous membr. moist/pink, Other (Wearing O2 per n.c.) Neck: Supple, Other (Morbidly obese and cannot evaluate JVP) Neuro: Alert, Non Focal Cardiovascular: Regular rate, Other (distant heart sounds) Respiratory: No respiratory distress, Breath sounds nml (anteriorly) Abdomen: Soft, Other (obese with a pannus) Extremities: No clubbing, No edema, Other (Venous changes discoloration of the shins are present) - Results Results: Laboratory Results WBC 5.7 x10^3/uL (4.8-10.8) 10/11/21 17:33 RBC 3.68 10^6/uL (4.20-5.40) L 10/11/21 17:33 Hgb 9.5 g/dL (12.0-16.0) L 10/11/21 17:33 Hct 32.7 % (37.0-47.0) L 10/11/21 17:33 MCV 88.9 fL (81.0-99.0) 10/11/21 17:33 MCH 25.8 pg (27.0-31.0) L 10/11/21 17:33 MCHC 29.1 g/dL (32.0-36.0) L 10/11/21 17:33 RDW 19.7 % (12.0-15.0) H 10/11/21 17:33 Plt Count 188 10^3/uL (130-450) 10/11/21 17:33 MPV 10.2 fL (7.9-10.8) 10/11/21 17:33 Neut # (Auto) 4.0 10^3/uL (1.5-6.6) 10/11/21 17:33 Lymph # (Auto) 1.1 10^3/uL (1.5-3.5) L 10/11/21 17:33 [place] # (Auto) 0.5 10^3/uL (0.0-1.0) 10/11/21 17:33 Eos # (Auto) 0.1 10^3/uL (0.0-0.7) 10/11/21 17:33 Baso # (Auto) 0.0 10^3/uL (0.0-0.1) 10/11/21 17:33 Absolute Nucleated RBC 0.00 x10^3/uL 10/11/21 17:33 Nucleated RBC % 0.0 /100WBC 10/11/21 17:33 Bld Gas Analysis Time 213210/11/21 21:23 Sample Site RIGHT RADIAL 10/11/21 21: ABG pH 7.34 (7.35-7.45) L 10/11/21 21: ABG pCO2 67 mmHg (34-45) H* 10/11/21 21: ABG pO2 79 mmHg (80-100) L 10/11/21 21: ABG HCO3 35.5 mmol/L (22.0-26.0) H 10/11/21 21: ABG Total CO2 37.6 MMOL/L (21.0-29.0) H 10/11/21 21:23 ABG O2 Saturation 95 % (94-98) 10/11/21 21:23 ABG Base Excess 8.1 mmol/L (-2.0-3.0) H 10/11/21 21:23 Brent Test POSITIVE 10/11/21 21:23 Respiration Rate 16 b/min 10/11/21 21:23 O2 Delivery Device BiPAP 10/11/21 21:23 Vent Mode SYNCHRONOUS/TIMES 10/11/21 21:23 FiO2 35.00 10/11/21 21:23 PEEP 0 cmH2O 10/11/21 10:40 EPAP 5 cmH2O 10/11/21 21:23 IPAP 16 cmH2O 10/11/21 21:23 Sodium 138 mmol/L (135-145) 10/11/21 18:07 Potassium 4.0 mmol/L (3.5-5.0) 10/11/21 18:07 Chloride 93 mmol/L (101-111) L 10/11/21 18:07 Carbon Dioxide 38 mmol/L (21-32) H 10/11/21 18:07 Anion Gap 7.0 (6-13) 10/11/21 18:07 BUN 40 mg/dL (6-20) H 10/11/21 18:07 Creatinine 1.1 mg/dL (0.4-1.0) H 10/11/21 18:07 Estimated GFR (MDRD) 50 (>89) L 10/11/21 18:07 Glucose 129 mg/dL (70-100) H 10/11/21 18:07 POC Whole Bld Glucose 117 mg/dL (70 - 100) H 10/27/21 07:25 Calcium 8.6 mg/dL (8.5-10.3) 10/11/21 18:07 Urine Color YELLOW 10/11/21 18:35 Urine Clarity CLEAR (CLEAR) 10/11/21 18:35 Urine pH 5.5 PH (5.0-7.5) 10/11/21 18:35 Ur Specific [place] 1.020 (1.002-1.030) 10/11/21 18:35 Urine Protein NEGATIVE mg/dL (NEGATIVE) 10/11/21 18:35 Urine Glucose (UA) NEGATIVE mg/dL (NEGATIVE) 10/11/21 18:35 Urine Ketones NEGATIVE mg/dL (NEGATIVE) 10/11/21 18:35 Urine Occult Blood TRACE-INTA (NEGATIVE) 10/11/21 18:35 Urine Nitrite NEGATIVE (NEGATIVE) 10/11/21 18:35 Urine Bilirubin NEGATIVE (NEGATIVE) 10/11/21 18:35 Urine Urobilinogen 0.2 (NORMAL) E.U./dL (NORMAL) 10/11/21 18:35 Ur Leukocyte Esterase NEGATIVE (NEGATIVE) 10/11/21 18:35 Ur Microscopic Review NOT INDICATED 10/11/21 18:35 Urine Culture Comments NOT INDICATED 10/11/21 18:35 - Procedures Procedures: Procedures INSERTION OF ENDOTRACHEAL AIRWAY INTO TRACHEA, VIA OPENING (09/14/21) INSERTION OF INFUSION DEV INTO SUP VENA CAVA, PERC APPROACH (09/14/21) INSERTION OF MONITORING DEVICE INTO UP ART, PERC APPROACH (09/14/21) RESPIRATORY VENTILATION, 24-96 CONSECUTIVE HOURS (09/14/21)
[2021-10-27] MEDS: ATORVASTATIN 40 MG TABLET PO SCH (21:14)
[2021-10-27] MEDS: SERTRALINE 50 MG TABLET PO SCH (21:15)
[2021-10-28] MEDS: LORazepam 0.5 MG TABLET PO PRN (00:45)
[2021-10-28] MEDS: SODIUM CHLORIDE FLUSH 0.9% 10 ML SYRINGE IVP SCH ×3 (01:15→18:14)
[2021-10-28] MEDS: LIOTHYRONINE 25 MCG TABLET PO SCH (06:16)
[2021-10-28] MEDS: LEVOTHYROXINE 125 MCG TABLET PO SCH (06:16)
[2021-10-28] MEDS: BUDESONIDE 0.5 MG/2 ML NEB INH SCH ×2 (07:34→19:15)
[2021-10-28] MEDS: FORMOTEROL FUMARATE NEB 20 MCG/2 ML INH SCH (07:34)
[2021-10-28] MEDS: INSULIN ASPART 300 UNIT/3 ML PEN SUBQ SCH (07:51)
[2021-10-28] MEDS: POTASSIUM CHLORIDE 10 MEQ CAPSULE PO SCH (07:52)
[2021-10-28] MEDS: SACCHAROMYCES BOULARDII 250 MG CAPSULE PO SCH ×2 (07:52→18:14)
[2021-10-28] MEDS: METFORMIN 500 MG PO SCH ×2 (07:52→18:14)
[2021-10-28] MEDS: ENOXAPARIN 60 MG/0.6 ML SYRINGE SUBQ SCH ×2 (08:27→22:27)
[2021-10-28] MEDS: DOCUSATE SODIUM 250 MG CAPSULE PO SCH ×2 (08:28→22:27)
[2021-10-28] MEDS: METHADONE 5 MG TABLET PO SCH ×2 (08:28→22:27)
[2021-10-28] MEDS: CHOLECALCIFEROL 5,000 UNIT CAPSULE PO SCH (08:28)
[2021-10-28] MEDS: amLODIPine 5 MG TABLET PO SCH (08:28)
[2021-10-28] MEDS: FUROSEMIDE 40 MG TABLET PO SCH (08:28)
[2021-10-28] MEDS: guaiFENesin 600 MG TABLET PO SCH ×2 (08:28→22:27)
[2021-10-28] MEDS: SENNA 8.6 MG TABLET PO SCH ×2 (08:29→22:28)
[2021-10-28] MEDS: polyethylene glycoL 3350 17 GM PACKET PO SCH (08:29)
[2021-10-28] MEDS: PREGABALIN 25 MG CAPSULE PO SCH ×2 (08:32→22:28)
[2021-10-28] MEDS: FERROUS SULFATE 325 MG TABLET PO SCH (11:52)
[2021-10-28] MEDS: oxyCODONE 5 MG TABLET PO PRN ×2 (16:33→22:45)
[2021-10-28] MEDS: ACETAMINOPHEN 325 MG TABLET PO PRN ×2 (16:33→22:44)
[2021-10-28] MEDS: ATORVASTATIN 40 MG TABLET PO SCH (22:27)
[2021-10-28] MEDS: SERTRALINE 50 MG TABLET PO SCH (22:28)
[2021-10-29] MEDS: LORazepam 0.5 MG TABLET PO PRN ×2 (01:01→22:11)
[2021-10-29] MEDS: ALBUTEROL NEB 2.5 MG/3 ML INH PRN ×2 (01:16→19:20)
[2021-10-29] MEDS: SODIUM CHLORIDE FLUSH 0.9% 10 ML SYRINGE IVP SCH ×4 (01:54→23:52)
[2021-10-29] MEDS: LIOTHYRONINE 25 MCG TABLET PO SCH (06:30)
[2021-10-29] MEDS: LEVOTHYROXINE 125 MCG TABLET PO SCH (06:31)
[2021-10-29] MEDS: BUDESONIDE 0.5 MG/2 ML NEB INH SCH ×2 (07:02→19:20)
[2021-10-29] MEDS: ACETAMINOPHEN 325 MG TABLET PO PRN (07:02)
[2021-10-29] MEDS: FORMOTEROL FUMARATE NEB 20 MCG/2 ML INH SCH ×3 (07:02→19:20)
[2021-10-29] MEDS: oxyCODONE 5 MG TABLET PO PRN ×2 (07:03→17:30)
[2021-10-29] MEDS: ZINC OXIDE 20% OINT 30 GM TUBE TOP PRN (07:06)
[2021-10-29] MEDS: INSULIN ASPART 300 UNIT/3 ML PEN SUBQ SCH (09:25)
[2021-10-29] MEDS: METFORMIN 500 MG PO SCH ×2 (09:26→17:30)
[2021-10-29] MEDS: SACCHAROMYCES BOULARDII 250 MG CAPSULE PO SCH ×2 (09:27→17:30)
[2021-10-29] MEDS: POTASSIUM CHLORIDE 10 MEQ CAPSULE PO SCH (09:27)
[2021-10-29] MEDS: METHADONE 5 MG TABLET PO SCH ×2 (09:27→22:12)
[2021-10-29] MEDS: FUROSEMIDE 40 MG TABLET PO SCH (09:27)
[2021-10-29] MEDS: amLODIPine 5 MG TABLET PO SCH (09:27)
[2021-10-29] MEDS: PREGABALIN 25 MG CAPSULE PO SCH ×2 (09:27→22:11)
[2021-10-29] MEDS: CHOLECALCIFEROL 5,000 UNIT CAPSULE PO SCH (09:27)
[2021-10-29] MEDS: DOCUSATE SODIUM 250 MG CAPSULE PO SCH ×2 (09:28→22:12)
[2021-10-29] MEDS: polyethylene glycoL 3350 17 GM PACKET PO SCH (09:28)
[2021-10-29] MEDS: ENOXAPARIN 60 MG/0.6 ML SYRINGE SUBQ SCH ×2 (09:28→22:11)
[2021-10-29] MEDS: SENNA 8.6 MG TABLET PO SCH ×2 (09:29→22:12)
[2021-10-29] MEDS: guaiFENesin 600 MG TABLET PO SCH ×2 (09:36→22:11)
[2021-10-29] MEDS: FERROUS SULFATE 325 MG TABLET PO SCH (12:10)
[2021-10-29] MEDS: ATORVASTATIN 40 MG TABLET PO SCH (22:11)
[2021-10-29] MEDS: SERTRALINE 50 MG TABLET PO SCH (22:12)
[2021-10-30] MEDS: LIOTHYRONINE 25 MCG TABLET PO SCH (06:18)
[2021-10-30] MEDS: LEVOTHYROXINE 125 MCG TABLET PO SCH (06:18)
--- NOTE | 2021-10-30 07:21 | Discharge Plan ---
Discharge Plan Problem Reviewed?: Yes Disposition: Home, Self Care Condition: Good Prescriptions: Zinc Oxide 20% Oint [Zinc Oxide] 1 applic TOP PRN PRN #60 gm PRN Reason: Skin Care Diet: Diabetic Activity Restrictions: Wt Bearing as Tolerated Shower Restrictions: No Assistance Devices: Wheelchair Weight Bearing: Full Weight Plan of Treatment: Continue with nighttime CPAP/BiPAP and titrate O2 to maintain pulse ox above 88- 90%. Continue with barrier creams and zinc zinc oxide which she will be prescribed. Continue all home medications. Glycemic control as it pertains to your diabetes. Continue with all of your home medications to include your methadone for pain control. Care Goals: Per OT: Pt has met her established OT goals at this time, she was CGA for toileting when last see, however, pt nursing she is SBA which is her last LTG goal to meet. Patient was told that her increased anxiety contributing to some fear based mobility deficits. OT did explain with social sciences professor that this may improve over time when she is getting the used to of mobility and we are encouraging her to increase her mobility on her own. The plan is for her to return home with HH PT/OT/bath aide, assist from dtr and equipment she uses at baseline. Follow-Up Care: Home Health - PT, Home Health - OT No Smoking: If you smoke, Please STOP! Call for help. Follow-up with: Jennifer Castelan ARNP [Credentialed Staff Provider] - 2 Weeks
[2021-10-30 07:28] VITALS: BP 143/64
--- NOTE | 2021-10-30 07:33 | DISCHARGE SUMMARY ---
"Discharge Summary Admit Date: 10/09/21 Discharge Date: 10/30/21 Discharging Provider: Dr. Pierre Primary Care Provider: Jennifer Castelan Code Status: Do Not Attempt Resuscitation Condition at Discharge: Good Discharge Disposition: 01 Home, Self Care - DIAGNOSES Admission Diagnoses: (1) Chronic respiratory failure (2) COPD (chronic obstructive pulmonary disease) (3) Chronic diastolic heart failure (4) Generalized weakness (5) Anxiety (6) CKD (chronic kidney disease) stage 3, GFR 30-59 ml/min (7) Chronic pain syndrome (8) Diabetes mellitus (9) Hypothyroidism (10) Morbid obesity with BMI of 60.0-69.9, adult (11) Hyperlipidemia Discharge Diagnoses with Status of Each Condition: (1) Physical deconditioning---stable (2) Chronic respiratory failure with hypoxia and hypercapnia---stable (3) COPD (chronic obstructive pulmonary disease)---stable (4) Chronic diastolic heart failure---stable (5) Pleural effusion, left----stable (6) Diabetes mellitus---stable (7) Hypothyroidism---stable (8) Chronic pain syndrome---stable (9) Morbid obesity BMI 60-65----stable - HPI History of Present Illness: HPI: Patient is a 66-year-old morbidly obese female with BMI of 71, probable sleep apnea, diabetes mellitus on metformin, chronic leg wounds, hypothyroidism, chronic pain syndrome and history of chronic diastolic heart failure on Lasix who was admitted on 09/14/21 with shortness of breath which has been going on for 1 week prior to presentation. She also had a dry cough with slight sputum production that was yellow. She was diagnosed with COPD exacerbation and community-acquired pneumonia and treated with Rocephin, azithromycin, IV steroids and breathing treatments. Initially treatment was on the MedSurg floor. She also received Lasix IV for anasarca with pitting edema up to her hips. On 09/19/2021 she became somnolent and ABG showed a pH of 7.26 with PCO2 of 80. As a result she was transferred to the ICU for further management on BiPAP. Despite the BiPAP her PCO2 level increased from 80 up to 100. Due to this worsening her respiratory status anesthesia was consulted and patient was intubated. She completed 7-day course of Rocephin and empiric azithromycin. Repeat chest x-rays continue to show infiltrates so cefepime was added for healthcare associated pneumonia coverage. Her urine cultures grew E faecalis which was covered by cefepime. Blood and respiratory cultures were no growth for 5 days. Diuretics were continued throughout her hospital stay. She was extubated on to. Her respiratory status slowly improved over the subsequent days. She was able to be off the BiPAP for longer stretches of time during the day and back on the BiPAP at night while asleep. She was in the ICU for an extended period of time while awaiting her new noninvasive ventilation device. She was subsequently transferred to the [facility] floor due to significant respiratory status recovery. She was seen by physical therapy and deemed to be a candidate for shelter facility for rehab. However it had been difficult for social work to find placement given her need for a bariatric bed and also using a lift to get in and out of bed. She was admitted to [facility] swing bed on 10/08/21. She was resting comfortably in bed denied any significant complaints at the time. - CONSULTS | PROCEDURES Consultations: Wound care Procedures: none - HOSPITAL COURSE Hospital Course: Was managed in the hospital for her multiple medical conditions mainly her physical deconditioning that was primarily related to patient's morbid obesity and ongoing chronic hypercapnic/hypoxemic respiratory failure and underlying COPD and chronic diastolic heart failure with a left-sided pleural effusion. Patient received multidisciplinary management and treatment for her underlying medical conditions and was placed back on her methadone and oxycodone for her chronic pain. Her diabetes was managed with carb controlled diet and was placed on insulin sliding scale for glycemic control. Patient's physical deconditioning which was ongoing and was strongly associated with anxiety which at times influenced her increased requirement of 02 supplantation to 6L. Patient used BiPAP at nighttime and improved respiratory status was achieved throughout hospitalization. Patient was medically stable for discharge as she achieved PT/OT goals with walking 10 feet and repeated walks with rest in between in order to get to the bathroom as well as having performed her ADLs. Patient will be continued on her home medications, pain control medications, will have barrier ointment of zinc oxide prescribed to her, patient to have walking assistive devices to continue at home setting, patient would like to have an electric wheelchair approved for home setting and will need to follow-up with PCP in order for this approval to be expedited in a timely fashion. Patient to follow-up with her PCP in 1 to 2 weeks. - ALLERGIES Allergies/Adverse Reactions: Allergies Allergy/AdvReac Type Severity Reaction Status Date / Time Penicillins Allergy Rash Verified 09/14/21 15:42 Sulfa (Sulfonamide Allergy Rash Verified 09/14/21 15:42 Antibiotics) - MEDICATIONS Home Medications: Ambulatory Orders Medication Instructions Recorded Confirmed Levothyroxine [Synthroid] 125 mcg PO QDAC 10/07/13 10/08/21 Lisinopril 20 mg PO DAILY 02/12/15 10/08/21 Meloxicam 15 mg PO DAILY 08/04/16 10/08/21 Potassium Chloride [Klor-Con 10] 10 meq PO DAILY 09/09/18 10/08/21 Sertraline HCl 150 mg PO HS 09/09/18 10/08/21 Oxycodone HCl/Acetaminophen 1 each PO QID PRN 05/29/20 10/08/21 [Percocet 10-325 mg Tablet] Pregabalin [Lyrica] 50 - 100 mg PO BID 05/29/20 10/08/21 Cholecalciferol [Vitamin D3] 5,000 units PO DAILY 09/07/20 10/08/21 Vitamin B Complex/Folic Acid 1 tab PO DAILY 09/07/20 10/08/21 [B-Complex Tablet] Albuterol Sulf [Ventolin Hfa 1 - 2 puffs INH Q4HR PRN #1 inhaler 04/26/21 10/08/21 Inhaler] Atorvastatin Calcium 40 mg PO QPM 05/08/21 10/08/21 Liothyronine [Cytomel] 25 mcg PO QDAC 05/08/21 10/08/21 Acetaminophen [Tylenol] 650 mg PO Q4HR PRN tablet 05/15/21 10/08/21 Metformin HCl [Metformin ER 500 mg PO BID #0 05/15/21 10/08/21 Gastric] Methadone HCl 10 mg PO BID #0 05/15/21 10/08/21 amLODIPine [Norvasc] 5 mg PO DAILY #30 tablet 05/15/21 10/08/21 Albuterol 2.5 mg INH QID PRN 09/15/21 10/08/21 Furosemide [Lasix] 40 mg PO DAILY 09/15/21 10/08/21 Zinc Oxide 20% Oint [Zinc Oxide] 1 applic TOP PRN PRN #60 gm 10/30/21 - PHYSICAL EXAM AT DISCHARGE General Appearance: positive: No acute distress, Alert, Anxious Eyes Bilateral: positive: Normal inspection, PERRL, EOMI ENT: positive: ENT inspection nml, Pharynx nml, No signs of dehydration Neck: positive: Nml inspection, Thyroid nml, No JVD, Trachea midline Respiratory: positive: Chest non-tender, No respiratory distress, Breath sounds nml Cardiovascular: positive: Regular rate & rhythm, No murmur, No gallop Peripheral Pulses: positive: 2+ Abdomen: positive: Non-tender, No organomegaly, Nml bowel sounds, No distention. negative: Tenderness Back: positive: Nml inspection, CVA tenderness (R) Skin: positive: No rash, Skin rash, Other Extremities: positive: Non-tender, Full ROM, Pedal edema Neurologic/Psychiatric: positive: Oriented x3 - LABS Result Diagrams: 10/11/21 17:33 10/11/21 18:07 - DIAGNOSTIC IMAGING Diagnostic Imaging Results: Final report reviewed - QUALITY (Female Hip Fx Only) Was patient sent home on osteoporosis medication?: No - FOLLOW UP Follow Up: Patient to follow-up with PCP in 1 or 2 weeks. Patient will receive home health services with PT/OT for mobility and deficit issues and with a dressing of her functional capacity, anxiety and pain control as well as barrier protection with ointments and creams to resume all her home medications with medical adherence strongly advised. - TIME SPENT Time Spent in Discharge (Minutes): 40"
[2021-10-30] MEDS: BUDESONIDE 0.5 MG/2 ML NEB INH SCH (07:57)
[2021-10-30] MEDS: FORMOTEROL FUMARATE NEB 20 MCG/2 ML INH SCH (07:58)
[2021-10-30] MEDS: METFORMIN 500 MG PO SCH (08:31)
[2021-10-30] MEDS: INSULIN ASPART 300 UNIT/3 ML PEN SUBQ SCH (08:31)
[2021-10-30] MEDS: guaiFENesin 600 MG TABLET PO SCH (08:32)
[2021-10-30] MEDS: amLODIPine 5 MG TABLET PO SCH (08:32)
[2021-10-30] MEDS: POTASSIUM CHLORIDE 10 MEQ CAPSULE PO SCH (08:32)
[2021-10-30] MEDS: polyethylene glycoL 3350 17 GM PACKET PO SCH (08:32)
[2021-10-30] MEDS: ENOXAPARIN 60 MG/0.6 ML SYRINGE SUBQ SCH (08:32)
[2021-10-30] MEDS: PREGABALIN 25 MG CAPSULE PO SCH (08:32)
[2021-10-30] MEDS: FUROSEMIDE 40 MG TABLET PO SCH (08:32)
[2021-10-30] MEDS: SACCHAROMYCES BOULARDII 250 MG CAPSULE PO SCH (08:32)
[2021-10-30] MEDS: CHOLECALCIFEROL 5,000 UNIT CAPSULE PO SCH (08:32)
[2021-10-30] MEDS: oxyCODONE 5 MG TABLET PO PRN (08:33)
[2021-10-30] MEDS: SENNA 8.6 MG TABLET PO SCH (08:33)
[2021-10-30] MEDS: SODIUM CHLORIDE FLUSH 0.9% 10 ML SYRINGE IVP SCH (08:33)
[2021-10-30] MEDS: DOCUSATE SODIUM 250 MG CAPSULE PO SCH (08:33)
[2021-10-30] MEDS: ACETAMINOPHEN 325 MG TABLET PO PRN (10:10)
[2021-10-30] MEDS: METHADONE 5 MG TABLET PO SCH (10:10)
[2021-10-30] MEDS: FERROUS SULFATE 325 MG TABLET PO SCH (11:49)
[2021-10-30] MEDS ORDERED: FUROSEMIDE 40 MG/4 ML VIAL IVP ONE (12:00)
[2021-10-30] MEDS ORDERED: FUROSEMIDE 40 MG TABLET PO ONE (12:09)
[2021-10-30] MEDS ORDERED: ALPRAZolam 0.25 MG TABLET PO ONE (12:10)
== END 2021-10-30 17:00 | disposition home or self-care (01) | DRG 948 ==
LOC: MS2 15:01
PROVIDERS: ADMIT Internal Medicine; ATTEND Family Medicine
DX: R53.1 Weakness (principal); J96.12 Chronic respiratory failure with hypercapnia; J96.11 Chronic respiratory failure with hypoxia; I50.32 Chronic diastolic (congestive) heart failure; J90 Pleural effusion, not elsewhere classified; E66.2 Morbid (severe) obesity with alveolar hypoventilation; I13.0 Hypertensive heart and chronic kidney disease with heart failure and stage 1 through stage 4 chronic kidney disease, or unspecified chronic kidney disease; Z68.44 Body mass index [BMI] 60.0-69.9, adult; J44.9 Chronic obstructive pulmonary disease, unspecified; E03.9 Hypothyroidism, unspecified; G89.4 Chronic pain syndrome; F41.9 Anxiety disorder, unspecified; E11.51 Type 2 diabetes mellitus with diabetic peripheral angiopathy without gangrene; E11.42 Type 2 diabetes mellitus with diabetic polyneuropathy; R32 Unspecified urinary incontinence; R35.1 Nocturia; R35.0 Frequency of micturition; F32.A Depression, unspecified; F43.10 Post-traumatic stress disorder, unspecified; M79.7 Fibromyalgia; M54.9 Dorsalgia, unspecified; Z66 Do not resuscitate; N18.30 Chronic kidney disease, stage 3 unspecified; E11.22 Type 2 diabetes mellitus with diabetic chronic kidney disease; E78.5 Hyperlipidemia, unspecified; I87.8 Other specified disorders of veins; Z79.84 Long term (current) use of oral hypoglycemic drugs; Z87.01 Personal history of pneumonia (recurrent); Z87.891 Personal history of nicotine dependence
CPT/HCPCS: 36415; 36600; 80048; 81001; 81003; 82803; 85025; 87040; 87086; 94640; 94660; 94761

== ENCOUNTER 2021-10-30 17:09 | Outpatient (CLI) | payer MEDICARE, MEDICAID | END 2021-10-30 17:10 | disposition home or self-care (01) | LOC: EMS 17:09 | PROVIDERS: ATTEND Family Medicine | DX: E66.01 Morbid (severe) obesity due to excess calories (principal) | CPT/HCPCS: A0425; A0428 ==

== ENCOUNTER 2021-10-31 10:26 | Outpatient (CLI) | payer MEDICARE, MEDICAID | END 2021-10-31 10:27 | disposition EMS.NT | LOC: EMS 10:26 | DX: Z03.89 Encounter for observation for other suspected diseases and conditions ruled out (principal) ==

== ENCOUNTER 2021-10-31 13:50 | Outpatient (CLI) | payer MEDICARE, MEDICAID | END 2021-10-31 13:51 | disposition short-term general hospital (02) | LOC: EMS 13:50 | DX: R06.02 Shortness of breath (principal); R53.1 Weakness | CPT/HCPCS: A0425; A0428 ==

== ENCOUNTER 2023-07-16 08:00 | Outpatient (CLI) | payer MEDICARE, MEDICAID ==
[2023-07-16 17:58] LABS: HCT - HEMATOCRIT 35.6 % (37.0-47.0); HGB - HEMOGLOBIN 10.5 g/dL (12.0-16.0); MEAN CORPUSCULAR HEMOGLOBIN 25.4 pg (27.0-31.0); MEAN CORPUSCULAR HGB CONC 29.5 g/dL (32.0-36.0); MEAN CORPUSCULAR VOLUME 86.2 fL (81.0-99.0); MEAN PLATELET VOLUME 9.9 fL (7.9-10.8); RED BLOOD COUNT 4.13 10^6/uL (4.20-5.40); RED CELL DISTRIBUTION WIDTH 16.3 % (12.0-15.0); WHITE BLOOD COUNT 11.4 x10^3/uL (4.8-10.8)
[2023-07-16 18:16] LABS: ALBUMIN 4.2 g/dL (3.2-5.5); ALBUMIN/GLOBULIN RATIO 1.4 (1.0-2.2); ALKALINE PHOSPHATASE 83 IU/L (42-121); ALT ALANINE AMINOTRANSFERASE 10 IU/L (10-60); AST ASPARTATE AMINOTRANSFERASE 13 IU/L (10-42); BILIRUBIN,TOTAL 0.7 mg/dL (0.2-1.0); BUN - BLOOD UREA NITROGEN 19 mg/dL (6-20); CALCIUM 9.9 mg/dL (8.5-10.3); CARBON DIOXIDE - CO2 32 mmol/L (21-32); CHLORIDE 98 mmol/L (101-111); CHOL/HDL RATIO 4.2 (<4.4); CHOLESTEROL 97 mg/dL; CREATININE 0.7 mg/dL (0.6-1.3); GFR - MDRD 84 (>89); GLUCOSE 139 mg/dL (74-104); HDL CHOLESTEROL 23 mg/dL; LDL CHOLESTEROL,CALCULATED 37 mg/dL; LDL/HDL RATIO 1.6 (<4.4); POTASSIUM 4.1 mmol/L (3.5-4.5); SODIUM 139 mmol/L (135-145); TOTAL PROTEIN 7.3 g/dL (6.4-8.9); TRIGLYCERIDES 187 mg/dL (48-352); VLDL CHOLESTEROL 37 mg/dL
[2023-07-16 18:27] LABS: THYROID STIMULATING HORMONE 2.17 uIU/mL (0.34-5.60)
[2023-07-16 18:33] LABS: FERRITIN 50.8 ng/mL (11.0-306.8)
[2023-07-16 20:54] LABS: ESTIMATED AVERAGE GLUCOSE 157 mg/dL (70-100); HEMOGLOBIN A1c% 7.1 % (4.27-6.07)
== END 2023-07-16 23:59 | disposition home or self-care (01) ==
LOC: LAB.N 08:00
PROVIDERS: ATTEND Family Medicine
DX: I48.91 Unspecified atrial fibrillation (principal); I50.30 Unspecified diastolic (congestive) heart failure; E78.5 Hyperlipidemia, unspecified; N18.30 Chronic kidney disease, stage 3 unspecified; B18.2 Chronic viral hepatitis C
CPT/HCPCS: 36415; 80053; 80061; 82728; 83036; 83721; 84443; 85027; 87522

== ENCOUNTER → 2023-07-16 | Outpatient (CLI) | payer MEDICARE, MEDICAID ==
--- NOTE | 2023-07-16 12:08 | XRAY Report ---
PROCEDURE: Chest 2V INDICATIONS: COUGH TECHNIQUE: 2 views of the chest were acquired. COMPARISON: Single view the chest dated 10/11/2021 FINDINGS: Surgical changes and devices: None. Lungs and pleura: No pleural effusions or pneumothorax. Lungs are clear. Mediastinum: Mediastinal contours appear normal. Heart size is normal. Bones and chest wall: No suspicious bony lesions. Overlying soft tissues appear unremarkable. IMPRESSION: No acute cardiopulmonary process. Reviewed by: Brandi Burgos MD on 07/16/2023 12:07 PM PST Approved by: Brandi Burgos MD on 07/16/2023 12:[address] [facility] Station ID: [id number]
== END ==
LOC: DI.N 11:36
PROVIDERS: ATTEND Family Medicine
DX: R05.9 Cough, unspecified (principal)

== ENCOUNTER 2023-07-27 19:53 | Outpatient (CLI) | payer MEDICARE, MEDICAID | END 2023-07-27 19:54 | disposition critical access hospital (66) | LOC: EMS 19:53 | DX: S91.114A Laceration without foreign body of right lesser toe(s) without damage to nail, initial encounter (principal); W22.09XA Striking against other stationary object, initial encounter; Y93.89 Activity, other specified; Y92.193 Bedroom in other specified residential institution as the place of occurrence of the external cause | CPT/HCPCS: A0425; A0429 ==

== ENCOUNTER 2023-07-27 20:13 | Emergency (ER) | payer MEDICARE, MEDICAID ==
--- NOTE | 2023-07-27 20:15 | ED Physician Documentation ---
PD HPI LOWER EXT INJURY - Stated complaint Stated Complaint: RT TOE LAC - History obtained from History obtained from: Patient, EMS - Additional information Additional information: 62-year-old woman with type 2 diabetes and morbid obesity hit her right middle toe on the wall while using her power chair and suffered a laceration on it. No other injuries. She is on Eliquis and there was some bleeding. Tetanus is unknown. PD PAST MEDICAL HISTORY - Past Medical History Cardiovascular: Hypertension, Peripheral Vascular Disease Respiratory: Asthma, COPD, Shortness of breath, Sleep apnea Neuro: Migraines, Peripheral neuropathy Endocrine/Autoimmune: Type 2 diabetes, HyPOthyroidism GI: Hepatitis : Incontinence, Nocturia, Frequency, Other HEENT: Chronic vision loss Psych: Depression, Anxiety, Post traumatic stress disorder Musculoskeletal: Osteoarthritis, Fibromyalgia, Fatigue, Chronic back pain Derm: Other drug resistant infections, Herpes zoster - Past Surgical History Past Surgical History: Yes Cardiovascular: Other - Present Medications Home Medications: Ambulatory Orders Medication Instructions Recorded Confirmed Levothyroxine [Synthroid] 125 mcg PO QDAC 10/07/13 10/08/21 Lisinopril 20 mg PO DAILY 02/12/15 10/08/21 Meloxicam 15 mg PO DAILY 08/04/16 10/08/21 Potassium Chloride [Klor-Con 10] 10 meq PO DAILY 09/09/18 10/08/21 Sertraline HCl 150 mg PO HS 09/09/18 10/08/21 Oxycodone HCl/Acetaminophen 1 each PO QID PRN 05/29/20 10/08/21 [Percocet 10-325 mg Tablet] Pregabalin [Lyrica] 50 - 100 mg PO BID 05/29/20 10/08/21 Cholecalciferol [Vitamin D3] 5,000 units PO DAILY 09/07/20 10/08/21 Vitamin B Complex/Folic Acid 1 tab PO DAILY 09/07/20 10/08/21 [B-Complex Tablet] Albuterol Sulf [Ventolin Hfa 1 - 2 puffs INH Q4HR PRN #1 inhaler 04/26/21 10/08/21 Inhaler] Atorvastatin Calcium 40 mg PO QPM 05/08/21 10/08/21 Liothyronine [Cytomel] 25 mcg PO QDAC 05/08/21 10/08/21 Acetaminophen [Tylenol] 650 mg PO Q4HR PRN tablet 05/15/21 10/08/21 Metformin HCl [Metformin ER 500 mg PO BID #0 05/15/21 10/08/21 Gastric] Methadone HCl 10 mg PO BID #0 05/15/21 10/08/21 amLODIPine [Norvasc] 5 mg PO DAILY #30 tablet 05/15/21 10/08/21 Albuterol 2.5 mg INH QID PRN 09/15/21 10/08/21 Furosemide [Lasix] 40 mg PO DAILY 09/15/21 10/08/21 Zinc Oxide 20% Oint [Zinc Oxide] 1 applic TOP PRN PRN #60 gm 10/30/21 cephALEXin [Keflex] 500 mg PO Q6H #20 cap 07/27/23 - Allergies Allergies/Adverse Reactions: Allergies Allergy/AdvReac Type Severity Reaction Status Date / Time Penicillins Allergy Rash Verified 07/27/23 20:20 Sulfa (Sulfonamide Allergy Rash Verified 07/27/23 20:20 Antibiotics) - Social History Does the pt smoke?: No Smoking Status: Former smoker Does the pt drink ETOH?: No Does the pt have substance abuse?: No - Immunizations Immunizations are current?: Yes - POLST Patient has POLST: Yes POLST Status: DNR PD ED PE NORMAL - Vitals Vital signs reviewed: Yes - General General: Alert and oriented X 3, No acute distress - Extremities Extremities: Other (There is deep laceration on the pulp of the right middle toe. No toenail injury.) - Neuro Neuro: Alert and oriented X 3, Normal speech Results - Vitals Vitals: Vital Signs - 24 hr 07/27/23 20:20 Temperature 36.7 C Heart Rate 90 Respiratory 20 Rate Blood Pressure 150/100 H O2 Saturation 95 Oxygen O2 Source Room air - Rads (name of study) X-ray of the right third toe grossly negative for fracture. Relevant Findings:: Final report received, EMP independent interpretation of test Procedures - Laceration (location) R 3rd toe Length in cm: 3 Wound type: Curved, Into subcut fat Anesthesia: Lidocaine 1% Wound preparation: Chlorhexadine, Irrigated copiously NS Skin layer closure: Nylon, Interrupted, Size #-0 - enter number (4-0), Sutures - enter # (7) Other: Tetanus booster given PD Medical Decision Making - ED course ED course: She presents with a laceration that is deep to the right third toe. No clear neurovascular compromise, although she does have some neuropathy so cannot really feel the toes well anyway. X-ray was grossly negative for fracture but given her risk factors she was put on antibiotics and the wound was closed after thorough irrigation and cleansing but closed return precautions for infection were discussed. Departure - Departure Disposition: 01 Home, Self Care Clinical Impression: Laceration Condition: Good Record reviewed to determine appropriate education?: Yes Instructions: ED Laceration Ext Sutr Stap Tape Prescriptions: cephALEXin [Keflex] 500 mg PO Q6H #20 cap Comments: Given the diabetes etc. there is a high risk of wound infection. Somewhat at the facility should be looking at it at least daily to assess for infection. Come back for any signs of infection which would include: Redness, swelling, drainage, increased pain, or fevers. You can wash it soap and water. Keep it covered and moist with bacitracin ointment which is available over the counter; avoid neosporin. Follow-up with your physician in 14 days for suture removal.
[2023-07-27 20:29] VITALS: O2SAT 95
[2023-07-27] MEDS: TETANUS/DIPHTHERIA/PERTUSSIS 0.5 ML SYRINGE IM ONE (20:39)
[2023-07-27] MEDS: cephALEXin 250 MG CAPSULE PO STA (20:40)
[2023-07-27] MEDS: CEPHALEXIN 250 MG Prepack 8 CAP BOTTLE PO STA (20:41)
[2023-07-27] MEDS: lidocaine 1% 20 ML MDV SUBQ ONE (20:41)
--- NOTE | 2023-07-27 21:18 | XRAY Report ---
PROCEDURE: Toe(s) 2+V RT INDICATIONS: toe inj 3rd TECHNIQUE: 3 views of the third toe(s) acquired. COMPARISON: None. FINDINGS: Bones: Decreased mineralization. There is hammertoe deformity obscuring good visualization of the dis dale digit. An overlying bandage further obscures fine detail. There may be cortical erosion at the ti ps of the third and fourth distal phalanges. No visible displaced fracture fragment. No suspicious missy ny lesions. Soft tissues: No suspicious soft tissue densities. Soft tissue defect seen at the tips of the secon d and third digits. No radiodense foreign bodies. IMPRESSION: Suboptimal visualization of the distal digits. Cannot exclude cortical erosive change at the distal third and fourth digits. No radiodense foreign bodies. Reviewed by: Radha Moreno MD on 07/27/2023 9:17 PM PDT Approved by: Radha Moreno MD on 07/27/2023 9:17 PM PDT Station ID: [id number]
[2023-07-27 22:00] VITALS: BP 165/80
== END 2023-07-27 21:49 | disposition home or self-care (01) ==
LOC: EDUNIT# → ED 20:13
DX: S91.114A Laceration without foreign body of right lesser toe(s) without damage to nail, initial encounter (principal); W22.8XXA Striking against or struck by other objects, initial encounter; Z23 Encounter for immunization; I10 Essential (primary) hypertension; J44.9 Chronic obstructive pulmonary disease, unspecified; E11.42 Type 2 diabetes mellitus with diabetic polyneuropathy; E03.9 Hypothyroidism, unspecified; M79.7 Fibromyalgia; I73.9 Peripheral vascular disease, unspecified; Z79.84 Long term (current) use of oral hypoglycemic drugs; Z79.899 Other long term (current) drug therapy
CPT/HCPCS: 12002; 73660; 90471; 90715; 99284; A9270

== ENCOUNTER 2023-07-27 21:59 | Outpatient (CLI) | payer MEDICARE, MEDICAID | END 2023-07-27 22:00 | disposition home or self-care (01) | LOC: EMS 21:59 | PROVIDERS: ATTEND Emergency Medicine | DX: E66.01 Morbid (severe) obesity due to excess calories (principal); S91.114D Laceration without foreign body of right lesser toe(s) without damage to nail, subsequent encounter; X58.XXXD Exposure to other specified factors, subsequent encounter | CPT/HCPCS: A0425; A0428 ==

== ENCOUNTER 2023-09-01 14:09 | Outpatient (CLI) | payer MEDICARE, MEDICAID | END 2023-09-01 14:10 | disposition home or self-care (01) | LOC: RT 14:09 | PROVIDERS: ATTEND Student in an Organized Health Care Education/Training Program | DX: F11.20 Opioid dependence, uncomplicated (principal) | CPT/HCPCS: 93005 ==

== ENCOUNTER 2023-09-13 08:00 | Outpatient (CLI) | payer MEDICARE, MEDICAID | END 2023-09-13 23:59 | disposition home or self-care (01) | LOC: PC 08:00 | PROVIDERS: ATTEND Nurse Practitioner Gerontology | DX: Z51.5 Encounter for palliative care (principal); J40 Bronchitis, not specified as acute or chronic; G89.4 Chronic pain syndrome; J44.9 Chronic obstructive pulmonary disease, unspecified; I48.91 Unspecified atrial fibrillation; Z79.01 Long term (current) use of anticoagulants; F32.9 Major depressive disorder, single episode, unspecified; Z99.3 Dependence on wheelchair; Z66 Do not resuscitate; Z99.81 Dependence on supplemental oxygen; E66.01 Morbid (severe) obesity due to excess calories; E11.42 Type 2 diabetes mellitus with diabetic polyneuropathy; Z79.84 Long term (current) use of oral hypoglycemic drugs; I13.0 Hypertensive heart and chronic kidney disease with heart failure and stage 1 through stage 4 chronic kidney disease, or unspecified chronic kidney disease; I50.32 Chronic diastolic (congestive) heart failure; N18.30 Chronic kidney disease, stage 3 unspecified; E11.22 Type 2 diabetes mellitus with diabetic chronic kidney disease; Z87.891 Personal history of nicotine dependence; Z79.4 Long term (current) use of insulin | CPT/HCPCS: 99345 ==

== ENCOUNTER 2023-09-24 08:00 | Outpatient (CLI) | payer MEDICARE, MEDICAID | END 2023-09-24 23:58 | disposition home or self-care (01) | LOC: PC 08:00 | PROVIDERS: ATTEND Nurse Practitioner Gerontology | DX: Z51.5 Encounter for palliative care (principal); I50.32 Chronic diastolic (congestive) heart failure; I87.2 Venous insufficiency (chronic) (peripheral); R60.0 Localized edema; K59.03 Drug induced constipation; E11.22 Type 2 diabetes mellitus with diabetic chronic kidney disease; N18.2 Chronic kidney disease, stage 2 (mild); E66.01 Morbid (severe) obesity due to excess calories; J44.9 Chronic obstructive pulmonary disease, unspecified | CPT/HCPCS: 99349 ==

== ENCOUNTER 2023-10-08 08:00 | Outpatient (CLI) | payer MEDICARE, MEDICAID ==
[2023-10-08 18:13] LABS: HCT - HEMATOCRIT 34.3 % (37.0-47.0); HGB - HEMOGLOBIN 9.9 g/dL (12.0-16.0); MEAN CORPUSCULAR HGB CONC 28.9 g/dL (32.0-36.0); MEAN CORPUSCULAR VOLUME 83.3 fL (81.0-99.0); MEAN PLATELET VOLUME 10.3 fL (7.9-10.8); RED BLOOD COUNT 4.12 10^6/uL (4.20-5.40); RED CELL DISTRIBUTION WIDTH 17.2 % (12.0-15.0); WHITE BLOOD COUNT 12.5 x10^3/uL (4.8-10.8)
[2023-10-08 18:34] LABS: ALBUMIN 4.2 g/dL (3.2-5.5); ALBUMIN/GLOBULIN RATIO 1.4 (1.0-2.2); ALKALINE PHOSPHATASE 90 IU/L (42-121); ALT ALANINE AMINOTRANSFERASE 7 IU/L (10-60); AST ASPARTATE AMINOTRANSFERASE 10 IU/L (10-42); BILIRUBIN,TOTAL 0.6 mg/dL (0.2-1.0); BUN - BLOOD UREA NITROGEN 20 mg/dL (6-20); CALCIUM 9.5 mg/dL (8.5-10.3); CARBON DIOXIDE - CO2 34 mmol/L (21-32); CHLORIDE 96 mmol/L (101-111); GFR - MDRD 56 (>89); GLUCOSE 209 mg/dL (74-104); POTASSIUM 3.7 mmol/L (3.5-4.5); SODIUM 138 mmol/L (135-145); TOTAL PROTEIN 7.2 g/dL (6.4-8.9)
[2023-10-08 18:53] LABS: CREATININE,URINE 35.2 mg/dL
[2023-10-08 19:03] LABS: MICROALBUMIN,URINE < 0.7 mg/dL
[2023-10-08 19:20] LABS: DIGOXIN 1.2 ng/mL
== END 2023-10-08 23:59 | disposition home or self-care (01) ==
LOC: LAB.N 08:00
PROVIDERS: ATTEND Nurse Practitioner Gerontology
DX: I50.32 Chronic diastolic (congestive) heart failure (principal); I48.91 Unspecified atrial fibrillation; D64.9 Anemia, unspecified; N18.30 Chronic kidney disease, stage 3 unspecified; E11.65 Type 2 diabetes mellitus with hyperglycemia
CPT/HCPCS: 36415; 80053; 80162; 82043; 82306; 82570; 82607; 83880; 85027

== ENCOUNTER 2023-10-12 10:00 | Outpatient (CLI) | payer MEDICARE, MEDICAID | END 2023-10-12 23:59 | disposition home or self-care (01) | LOC: PC 10:00 | PROVIDERS: ATTEND Nurse Practitioner Gerontology | DX: Z51.5 Encounter for palliative care (principal); I13.0 Hypertensive heart and chronic kidney disease with heart failure and stage 1 through stage 4 chronic kidney disease, or unspecified chronic kidney disease; I50.32 Chronic diastolic (congestive) heart failure; N18.30 Chronic kidney disease, stage 3 unspecified; T50.905A Adverse effect of unspecified drugs, medicaments and biological substances, initial encounter; K59.03 Drug induced constipation; E11.22 Type 2 diabetes mellitus with diabetic chronic kidney disease; E11.42 Type 2 diabetes mellitus with diabetic polyneuropathy; E11.51 Type 2 diabetes mellitus with diabetic peripheral angiopathy without gangrene; G89.4 Chronic pain syndrome; G47.09 Other insomnia; J40 Bronchitis, not specified as acute or chronic; I48.91 Unspecified atrial fibrillation; B19.20 Unspecified viral hepatitis C without hepatic coma; E66.01 Morbid (severe) obesity due to excess calories; Z71.89 Other specified counseling; Z79.4 Long term (current) use of insulin; Z79.84 Long term (current) use of oral hypoglycemic drugs; Z87.891 Personal history of nicotine dependence | CPT/HCPCS: 99350; G0318; 99417 ==

== ENCOUNTER 2023-10-20 18:24 | Outpatient (CLI) | payer MEDICARE, MEDICAID | END 2023-10-20 18:25 | disposition EMS.NT | LOC: EMS 18:24 | DX: M25.561 Pain in right knee (principal); S89.91XA Unspecified injury of right lower leg, initial encounter; V00.812A Wheelchair (powered) colliding with stationary object, initial encounter; Y92.122 Bedroom in nursing home as the place of occurrence of the external cause ==

== ENCOUNTER 2023-10-27 12:45 | Outpatient (CLI) | payer MEDICARE, MEDICAID | END 2023-10-27 23:59 | disposition home or self-care (01) | LOC: PC 12:45 | PROVIDERS: ATTEND Nurse Practitioner Gerontology | DX: Z51.5 Encounter for palliative care (principal); L03.115 Cellulitis of right lower limb; S80.01XS Contusion of right knee, sequela; S80.11XS Contusion of right lower leg, sequela; V89.2XXS Person injured in unspecified motor-vehicle accident, traffic, sequela; D64.9 Anemia, unspecified; E11.42 Type 2 diabetes mellitus with diabetic polyneuropathy; J44.9 Chronic obstructive pulmonary disease, unspecified; E66.01 Morbid (severe) obesity due to excess calories; I50.9 Heart failure, unspecified; I13.0 Hypertensive heart and chronic kidney disease with heart failure and stage 1 through stage 4 chronic kidney disease, or unspecified chronic kidney disease; N18.30 Chronic kidney disease, stage 3 unspecified; E11.22 Type 2 diabetes mellitus with diabetic chronic kidney disease; Z79.4 Long term (current) use of insulin; Z79.84 Long term (current) use of oral hypoglycemic drugs; Z87.891 Personal history of nicotine dependence | CPT/HCPCS: 99349 ==

== ENCOUNTER 2023-11-01 08:00 | Outpatient (CLI) | payer MEDICARE, MEDICAID ==
[2023-11-01 18:10] LABS: CREATININE,URINE 27.2 mg/dL; MICROALBUMIN,URINE < 0.7 mg/dL
[2023-11-01 18:17] LABS: HCT - HEMATOCRIT 34.4 % (37.0-47.0); HGB - HEMOGLOBIN 9.9 g/dL (12.0-16.0); MEAN CORPUSCULAR HGB CONC 28.8 g/dL (32.0-36.0); MEAN CORPUSCULAR VOLUME 79.8 fL (81.0-99.0); MEAN PLATELET VOLUME 10.4 fL (7.9-10.8); RED BLOOD COUNT 4.31 10^6/uL (4.20-5.40); RED CELL DISTRIBUTION WIDTH 17.2 % (12.0-15.0)
[2023-11-01 18:23] LABS: CALCIUM 9.8 mg/dL (8.5-10.3); CREATININE 0.9 mg/dL (0.6-1.3); POTASSIUM 3.8 mmol/L (3.5-4.5)
[2023-11-01 18:35] LABS: FERRITIN 45.6 ng/mL (11.0-306.8)
[2023-11-01 20:42] LABS: ESTIMATED AVERAGE GLUCOSE 154 mg/dL (70-100)
== END 2023-11-01 23:59 | disposition home or self-care (01) ==
LOC: LAB.R 08:00
PROVIDERS: ATTEND Nurse Practitioner Gerontology
DX: L03.90 Cellulitis, unspecified (principal); E11.51 Type 2 diabetes mellitus with diabetic peripheral angiopathy without gangrene; D64.9 Anemia, unspecified
CPT/HCPCS: 80048; 82043; 82570; 82728; 83036; 83540; 84466; 85027

== ENCOUNTER 2023-11-22 13:03 | Emergency (ER) | payer MEDICARE, MEDICAID ==
--- NOTE | 2023-11-22 14:02 | ED Physician Documentation ---
PD HPI LOWER EXT INJURY - Stated complaint Stated Complaint: RLE- CELLULITIS - Chief complaint Chief Complaint: Ext Problem - Additional information Additional information: 63-year-old female with history of hypertension, peripheral vascular disease, asthma, COPD, peripheral neuropathy, morbid obesity, type 2 diabetes, hypothyroidism, hepatitis, depression, PTSD, anxiety, fibromyalgia, opioid dependence presents emergency department for right lower extremity pain. Patient says that she has had multiple episodes of recurrent cellulitis to this right lower extremity she was sent here from her assisted living facility [facility]. She said that the pain for started about a month ago she went on antibiotics and its gotten better and cleared up entirely but redness and swelling started a couple days ago and has increased in severity. No known fevers or chills. PD PAST MEDICAL HISTORY - Past Medical History Cardiovascular: Hypertension, Peripheral Vascular Disease Respiratory: Asthma, COPD, Shortness of breath, Sleep apnea Neuro: Migraines, Peripheral neuropathy Endocrine/Autoimmune: Type 2 diabetes, HyPOthyroidism GI: Hepatitis : Incontinence, Nocturia, Frequency, Other HEENT: Chronic vision loss Psych: Depression, Anxiety, Post traumatic stress disorder Musculoskeletal: Osteoarthritis, Fibromyalgia, Fatigue, Chronic back pain Derm: Other drug resistant infections, Herpes zoster - Past Surgical History Past Surgical History: Yes Cardiovascular: Other - Present Medications Home Medications: Ambulatory Orders Medication Instructions Recorded Confirmed Levothyroxine [Synthroid] 125 mcg PO QDAC 10/07/13 10/08/21 Lisinopril 20 mg PO DAILY 02/12/15 10/08/21 Meloxicam 15 mg PO DAILY 08/04/16 10/08/21 Potassium Chloride [Klor-Con 10] 10 meq PO DAILY 09/09/18 10/08/21 Sertraline HCl 150 mg PO HS 09/09/18 10/08/21 Oxycodone HCl/Acetaminophen 1 each PO QID PRN 05/29/20 10/08/21 [Percocet 10-325 mg Tablet] Pregabalin [Lyrica] 50 - 100 mg PO BID 05/29/20 10/08/21 Cholecalciferol [Vitamin D3] 5,000 units PO DAILY 09/07/20 10/08/21 Vitamin B Complex/Folic Acid 1 tab PO DAILY 09/07/20 10/08/21 [B-Complex Tablet] Albuterol Sulf [Ventolin Hfa 1 - 2 puffs INH Q4HR PRN #1 inhaler 04/26/21 0 10/08/21 Inhaler] Atorvastatin Calcium 40 mg PO QPM 05/08/21 10/08/21 Liothyronine [Cytomel] 25 mcg PO QDAC 05/08/21 10/08/21 Acetaminophen [Tylenol] 650 mg PO Q4HR PRN tablet 05/15/21 10/08/21 Metformin HCl [Metformin ER 500 mg PO BID #0 05/15/21 10/08/21 Gastric] Methadone HCl 10 mg PO BID #0 05/15/21 10/08/21 amLODIPine [Norvasc] 5 mg PO DAILY #30 tablet 05/15/21 10/08/21 Albuterol 2.5 mg INH QID PRN 09/15/21 10/08/21 Furosemide [Lasix] 40 mg PO DAILY 09/15/21 10/08/21 Zinc Oxide 20% Oint [Zinc Oxide] 1 applic TOP PRN PRN #60 gm 10/30/21 cephALEXin [Keflex] 500 mg PO Q6H #20 cap 07/27/23 cephALEXin [Keflex] 1,000 mg PO Q6H 5 Days #40 cap 11/22/23 - Allergies Allergies/Adverse Reactions: Allergies Allergy/AdvReac Type Severity Reaction Status Date / Time Penicillins Allergy Rash Verified 11/22/23 13:17 Sulfa (Sulfonamide Allergy Rash Verified 11/22/23 13:17 Antibiotics) - Social History Does the pt smoke?: No Smoking Status: Never smoker Does the pt drink ETOH?: No Does the pt have substance abuse?: No - Immunizations Immunizations are current?: Yes - POLST Patient has POLST: Yes POLST Status: DNR PD ED PE NORMAL - Vitals Vital signs reviewed: Yes - General General: Alert and oriented X 3, No acute distress, Well developed/nourished, Other (morbidly obese) - Cardiac Cardiac: RRR - Respiratory Respiratory: No respiratory distress - Derm Derm: Other (Significant right lower extremity erythema starting at the foot spreading up to just below her knee. Warm to the touch erythema is evenly distributed throughout right lower extremity no maculopapules no vesicular lesions) - Extremities Extremities: No edema, Other (Right lower extremity erythema no calf tenderness) Results - Vitals Vitals: Oxygen O2 Source Room air PD Medical Decision Making - ED course ED course: 63-year-old female presents emergency department for right lower extremity erythema. Patient says this feels exact same as previous episodes of cellulitis. She has no calf pain or tenderness no unilateral leg swelling unlikely the pain and erythema is due to DVT. Patient was started on Keflex at a higher dose as she has a BMI of 52.7 we gave her 1000 mg now and she has been prescribed 1000 mg 4 times a day for the next 5 days. Patient given strict ER return precautions prescription sent to her preferred pharmacy all questions answered safe for discharge at this time. Departure - Departure Disposition: 01 Home, Self Care Clinical Impression: Cellulitis of right lower extremity Instructions: Cellulitis Dc Prescriptions: cephALEXin [Keflex] 1,000 mg PO Q6H 5 Days #40 cap Comments: Thank you for trusting us with your care. We have started you on antibiotic called Keflex here in the emergency department you will take this 4 times a day for the next 5 days to help with your right lower extremity cellulitis. If you have taken all prescribed antibiotics for 2 days and not miss any doses and you are not noticing improvement in symptoms or any worsening of symptoms please come back to the emergency department for possible hospitalization for IV antibiotics. Wishing you a speedy recovery. Forms: PCP List Discharge Date/Time: 11/22/23 16:40
[2023-11-22] MEDS: cephALEXin 250 MG CAPSULE PO STA (14:21)
[2023-11-22] MEDS: oxyCODONE 5 MG TABLET PO STA (14:21)
[2023-11-22 16:47] VITALS: BP 155/76; O2SAT 92
== END 2023-11-22 16:40 | disposition home or self-care (01) ==
LOC: EDUNIT# → ED 13:03
DX: L03.115 Cellulitis of right lower limb (principal); E11.40 Type 2 diabetes mellitus with diabetic neuropathy, unspecified; E11.51 Type 2 diabetes mellitus with diabetic peripheral angiopathy without gangrene; I10 Essential (primary) hypertension; E66.01 Morbid (severe) obesity due to excess calories; E03.9 Hypothyroidism, unspecified; M79.7 Fibromyalgia; F41.9 Anxiety disorder, unspecified; Z79.4 Long term (current) use of insulin; Z79.899 Other long term (current) drug therapy; J44.9 Chronic obstructive pulmonary disease, unspecified; G47.30 Sleep apnea, unspecified
CPT/HCPCS: 99283; A9270

== ENCOUNTER 2023-11-22 13:12 | Outpatient (CLI) | payer MEDICARE, MEDICAID | END 2023-11-22 23:59 | disposition critical access hospital (66) | LOC: EMS 13:12 | DX: L03.115 Cellulitis of right lower limb (principal); M79.661 Pain in right lower leg | CPT/HCPCS: A0425; A0429 ==

== ENCOUNTER 2023-11-22 16:35 | Outpatient (CLI) | payer MEDICARE, MEDICAID | END 2023-11-22 23:59 | disposition home or self-care (01) | LOC: EMS 16:35 | PROVIDERS: ATTEND Nurse Practitioner | DX: L03.115 Cellulitis of right lower limb (principal); M79.661 Pain in right lower leg; E66.01 Morbid (severe) obesity due to excess calories; Z74.01 Bed confinement status | CPT/HCPCS: A0425; A0428 ==

== ENCOUNTER 2023-11-26 01:06 | Outpatient (CLI) | payer MEDICARE, MEDICAID | END 2023-11-26 23:59 | disposition critical access hospital (66) | LOC: EMS 01:06 | DX: L03.115 Cellulitis of right lower limb (principal); M79.661 Pain in right lower leg | CPT/HCPCS: A0425; A0429 ==

== ENCOUNTER 2023-11-26 01:24 | Emergency (ER) | payer MEDICARE, MEDICAID ==
[2023-11-26] MEDS: LIDOCAINE 2%-EPI 1:100000 20 ML MDV SUBQ STA (01:39)
[2023-11-26] MEDS: HYDROmorphone 1 MG/ML CARPUJECT IM STA (01:40)
--- NOTE | 2023-11-26 02:08 | ED Physician Documentation ---
PD HPI SKIN - Stated complaint Stated Complaint: R LEG SWELLING - Chief complaint Chief Complaint: Wound - History obtained from History obtained from: Patient - Additional information Additional information: 63-year-old woman with history of diabetes presents with right leg cellulitis and progressive knee swelling with worsening pain tonight. Denies fever.Currently on Keflex antibiotics PD PAST MEDICAL HISTORY - Past Medical History Cardiovascular: Hypertension, Peripheral Vascular Disease Respiratory: Asthma, COPD, Shortness of breath, Sleep apnea Neuro: Migraines, Peripheral neuropathy Endocrine/Autoimmune: Type 2 diabetes, HyPOthyroidism GI: Hepatitis : Incontinence, Nocturia, Frequency, Other HEENT: Chronic vision loss Psych: Depression, Anxiety, Post traumatic stress disorder Musculoskeletal: Osteoarthritis, Fibromyalgia, Fatigue, Chronic back pain Derm: Other drug resistant infections, Herpes zoster - Past Surgical History Past Surgical History: Yes Cardiovascular: Other - Present Medications Home Medications: Ambulatory Orders Medication Instructions Recorded Confirmed Levothyroxine [Synthroid] 125 mcg PO QDAC 10/07/13 10/08/21 Lisinopril 20 mg PO DAILY 02/12/15 10/08/21 Meloxicam 15 mg PO DAILY 08/04/16 10/08/21 Potassium Chloride [Klor-Con 10] 10 meq PO DAILY 09/09/18 10/08/21 Sertraline HCl 150 mg PO HS 09/09/18 10/08/21 Oxycodone HCl/Acetaminophen 1 each PO QID PRN 05/29/20 10/08/21 [Percocet 10-325 mg Tablet] Pregabalin [Lyrica] 50 - 100 mg PO BID 05/29/20 10/08/21 Cholecalciferol [Vitamin D3] 5,000 units PO DAILY 09/07/20 10/08/21 Vitamin B Complex/Folic Acid 1 tab PO DAILY 09/07/20 10/08/21 [B-Complex Tablet] Albuterol Sulf [Ventolin Hfa 1 - 2 puffs INH Q4HR PRN #1 inhaler 04/26/21 10/08/21 Inhaler] Atorvastatin Calcium 40 mg PO QPM 05/08/21 10/08/21 Liothyronine [Cytomel] 25 mcg PO QDAC 05/08/21 10/08/21 Acetaminophen [Tylenol] 650 mg PO Q4HR PRN tablet 05/15/21 10/08/21 Metformin HCl [Metformin ER 500 mg PO BID #0 05/15/21 10/08/21 Gastric] Methadone HCl 10 mg PO BID #0 05/15/21 10/08/21 amLODIPine [Norvasc] 5 mg PO DAILY #30 tablet 05/15/21 10/08/21 Albuterol 2.5 mg INH QID PRN 09/15/21 10/08/21 Furosemide [Lasix] 40 mg PO DAILY 09/15/21 10/08/21 Zinc Oxide 20% Oint [Zinc Oxide] 1 applic TOP PRN PRN #60 gm 10/30/21 cephALEXin [Keflex] 500 mg PO Q6H #20 cap 07/27/23 cephALEXin [Keflex] 1,000 mg PO Q6H 5 Days #40 cap 11/22/23 Doxycycline Hyclate 100 mg PO BID 14 Days #28 tab 11/26/23 - Allergies Allergies/Adverse Reactions: Allergies Allergy/AdvReac Type Severity Reaction Status Date / Time Penicillins Allergy Rash Verified 11/26/23 01:30 Sulfa (Sulfonamide Allergy Rash Verified 11/26/23 01:30 Antibiotics) - Social History Does the pt smoke?: No Smoking Status: Never smoker Does the pt drink ETOH?: No Does the pt have substance abuse?: No - Immunizations Immunizations are current?: Yes - POLST Patient has POLST: Yes POLST Status: DNR PD ED PE NORMAL - Vitals Vital signs reviewed: Yes - General General: Alert and oriented X 3, No acute distress, Well developed/nourished, Other (Morbidly obese) - HEENT HEENT: Atraumatic, PERRL, EOMI - Neck Neck: Supple, no meningeal sign - Derm Derm: Normal color, Warm and dry, Other (Cellulitis to right lower extremity. Palpable induration consistent with abscess to right knee) - Extremities Extremities: Other (CSM intact bilateral lower extremity) Results - Vitals Vitals: Vital Signs - 24 hr 11/26/23 01:30 Temperature 38.1 C H Heart Rate 110 H Respiratory 20 Rate Blood Pressure 137/69 H Oxygen O2 Source Room air Procedures - Abscess I&D (location) Lower extremity right Preparation: Confirmed with ultrasound, Alcohol, Lidocaine 1%, With epi Incision: Incised with scalpel, Purulent drainage, Loculations broken, Irrigated, Packed, Culture obtained Other: Pt tolerated well, Dressing applied, Antibiotic prescribed (switched patient from keflex to doxycycline for MRSA coverage) PD Medical Decision Making - ED course ED course: 63-year-old woman presents with right knee abscess which was drained with copious purulent discharge. She is currently on Keflex but I am switching her to Doxy for MRSA coverage. Wound culture was sent and we can change back if it is MSSA. Return precautions given. Since this is overlying the knee joint I referred her to orthopedics as well. Abscess was packed and this will need to be changed out in 2-3 days. Departure - Departure Disposition: 01 Home, Self Care Clinical Impression: Abscess Condition: Stable Instructions: ED Abscess IandD Follow-Up: Alistair Dior MD [Provider Admit Priv/Credential] - Prescriptions: Doxycycline Hyclate 100 mg PO BID 14 Days #28 tab Comments: You were seen in the emergency department for knee abscess. Please follow-up with orthopedics this week. You also need to follow up with a primary care provider or walk in clinic for wound check and removal and possible re-packing of abscess strings in 2-3 days, and return to the emergency department if you have any new or worsening symptoms or other concerns.
[2023-11-26] MEDS: DOXYCYCLINE 100 MG TABLET PO STA (02:19)
[2023-11-26 02:29] VITALS: BP 126/73; O2SAT 95
== END 2023-11-26 02:23 | disposition home or self-care (01) ==
LOC: EDUNIT# → ED 01:24
DX: L02.415 Cutaneous abscess of right lower limb (principal); Z66 Do not resuscitate; I10 Essential (primary) hypertension; J44.9 Chronic obstructive pulmonary disease, unspecified; E11.42 Type 2 diabetes mellitus with diabetic polyneuropathy; E03.9 Hypothyroidism, unspecified; Z79.899 Other long term (current) drug therapy; Z79.84 Long term (current) use of oral hypoglycemic drugs
CPT/HCPCS: 10061; 87070; 87205; 96372; 99283; A9270; J1170; 87181

== ENCOUNTER 2023-11-26 02:26 | Outpatient (CLI) | payer MEDICARE, MEDICAID | END 2023-11-26 23:59 | disposition home or self-care (01) | LOC: EMS 02:26 | PROVIDERS: ATTEND Emergency Medicine | DX: L02.415 Cutaneous abscess of right lower limb (principal); Z74.01 Bed confinement status | CPT/HCPCS: A0425; A0428 ==

== ENCOUNTER 2023-11-26 08:00 | Outpatient (CLI) | payer MEDICARE, MEDICAID | END 2023-11-26 23:59 | disposition home or self-care (01) | LOC: PC 08:00 | PROVIDERS: ATTEND Nurse Practitioner Gerontology | DX: Z51.5 Encounter for palliative care (principal); L03.115 Cellulitis of right lower limb | CPT/HCPCS: 99349 ==

== ENCOUNTER 2023-11-26 08:02 | Outpatient (CLI) | payer MEDICARE, MEDICAID | END 2023-11-26 23:59 | disposition EMS.NT | LOC: EMS 08:02 | DX: L02.415 Cutaneous abscess of right lower limb (principal); Z79.01 Long term (current) use of anticoagulants ==

== ENCOUNTER 2023-11-26 14:55 | Outpatient (CLI) | payer MEDICARE, MEDICAID | END 2023-11-26 23:59 | disposition short-term general hospital (02) | LOC: EMS 14:55 | DX: L03.115 Cellulitis of right lower limb (principal) | CPT/HCPCS: A0425; A0429 ==

== ENCOUNTER 2023-12-29 16:59 | Outpatient (CLI) | payer MEDICARE, MEDICAID | END 2023-12-29 17:00 | disposition short-term general hospital (02) | LOC: EMS 16:59 | DX: L08.9 Local infection of the skin and subcutaneous tissue, unspecified (principal); M79.89 Other specified soft tissue disorders; R53.1 Weakness | CPT/HCPCS: A0425; A0429; A0888 ==